=== PATIENT | male | born 1950 | race Caucasian/White ===

== ENCOUNTER → 2017-07-19 09:10 | Outpatient (CLI) | payer OTHER, SELFPAY ==
--- NOTE | 2017-07-19 09:13 | RAD_ITS ---
STUDY: X-RAY - LEFT SHOULDER REASON FOR EXAM: Male, 66 years old. Pain TECHNIQUE: 3 view(s) of the shoulder. COMPARISON: None. FINDINGS: Narrowed glenohumeral articulation. Mild spurring of the acromioclavicular joint. Normal acromion. Normal humeral head and visualized proximal humerus. The soft tissue structures are unremarkable. Normal visualized pulmonary apex. RAD/Shoulder min 2 Views IMPRESSION: Degenerative changes. No evidence for acute fracture Electronically Signed: Alexandr Escalera MD at 23:58 EST , Service support ,
== END ==
PROVIDERS: Family Provider Family Medicine; PCP Family Medicine; Visit Provider Orthopaedic Surgery
DX: M19.012 Primary osteoarthritis, left shoulder (principal)
CPT/HCPCS: 73030

== ENCOUNTER 2019-12-14 10:26 | Emergency (ER) | payer MEDICARE, BC, SELFPAY ==
[2019-12-14 10:27] VITALS: BP 160/76; PULSE 73; RESP 15; TEMP 36.3; O2SAT 96; BMI 33.4
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
--- NOTE | 2019-12-14 10:50 | DCINST.ED_ITS ---
ED Disposition - Plan for ED Patient: Instructions: ED [facility] Prescriptions: Cephalexin [Keflex] 500 mg PO Q6 #40 cap Transmission Status: Pending to [facility]/pharmacy #[id number] Referrals: Aleksandr Ramirez MD [Primary Care Provider] - 5-7 Days
[2019-12-14] MEDS: BACITRACIN 15 GM Tube 1 APPLIC TOPICAL (11:00)
[2019-12-14 11:02] VITALS: RESP 17
== END 2019-12-14 11:15 | disposition home or self-care (01) ==
LOC: ED 11:09
PROVIDERS: Emergency Provider Emergency Medicine; PCP Family Medicine
DX: T24.201A Burn of second degree of unspecified site of right lower limb, except ankle and foot, initial encounter (principal); T24.202A Burn of second degree of unspecified site of left lower limb, except ankle and foot, initial encounter; T31.0 Burns involving less than 10% of body surface; X08.8XXA Exposure to other specified smoke, fire and flames, initial encounter; Y93.89 Activity, other specified; Y92.9 Unspecified place or not applicable; I10 Essential (primary) hypertension; E11.9 Type 2 diabetes mellitus without complications; Z79.84 Long term (current) use of oral hypoglycemic drugs; Z79.82 Long term (current) use of aspirin; Z79.899 Other long term (current) drug therapy
CPT/HCPCS: 99282

== ENCOUNTER 2020-12-26 21:28 | Emergency (ER) | payer MEDICARE, BC, SELFPAY ==
[2020-12-26 21:29] VITALS: BP 148/76; PULSE 75; RESP 15; TEMP 36.4; O2SAT 95; BMI 35.4
[2020-12-26 21:59] VITALS: O2SAT 97
--- NOTE | 2020-12-26 22:32 | EX.ED.DYSGE1 ---
HPI History of Present Illness Chief Complaint: Cough Informant: patient Narrative Narrative: Patient is a 70-year-old male with a past medical history of hypertension, diabetes who presents to the emergency department for cough, sore throat. His initial symptoms started 2 days ago. His was concerned that he might of caught Covid as they did have a known Covid exposure. His granddaughter recently tested positive and they were with her. The patient otherwise feels well. He denies any body aches, fever/chills. No headache or stiff neck. No rashes. He has not been nauseous or vomiting. No change in bowel movements. He denies any significant shortness of breath or chest pain. Patient has been vaccinated with 2 doses of Moderna earlier this year. [facility] Medical History (Updated 12/26/20 @ 23:[address] Mason Reyes DO) Diabetes Former smoker Hypertension Home Medications aspirin 81 mg PO DAILY 06/12/17 [History Last Taken Unknown] valsartan-hydrochlorothiazide 1 ea PO DAILY 06/12/17 [History Last Taken 06/19/17 06:30] metformin 500 mg PO DAILY tab 06/19/17 [Rx Last Taken Unknown] atorvastatin 20 mg tablet 20 mg PO QDAY 07/19/17 [History Last Taken Unknown] Allergy/AdvReac Type Severity Reaction Status Date / Time No Known Allergies Allergy Verified 12/26/20 21:36 Family History (Updated 07/19/17 @ 09:17 by Sara Richards) Father Diabetes Mother Hypertension Surgical History (Updated 04/12/18 @ 08:40 by Francisco Javier Kim) History of cholecystectomy S/P carpal tunnel release S/P cholecystectomy S/P hernia repair Social History Smoking Status: Smoker, status unknown ROS ROS ED Constitutional Constitutional ED: Denies chills or fever(s) Eyes Eyes: Denies change in vision ENT ENT ED: Reports sore throat; Denies epistaxis or rhinorrhea Cardiovascular Cardiovascular: Denies chest pain or palpitations Respiratory/Chest Respiratory/Chest: Reports cough; Denies dyspnea or dyspnea on exertion Gastrointestinal Gastrointestinal: Denies abdominal pain, diarrhea, nausea or vomiting Musculoskeletal Musculoskeletal: Denies back pain or neck pain Integumentary Denies rash Neurologic Neurologic: Denies dizziness, headache(s) or weakness EXAM Physical Exam Const Vital Signs: 12/26/20 21:29 12/26/20 21:59 12/26/20 23:29 Temperature 97.6 F L Temperature Source Temporal Pulse Rate 75 88 Respiratory Rate 15 15 Respiratory Effort Normal Respiratory Depth Normal Respiratory Pattern Normal Blood Pressure 148/76 H 142/75 H Blood Pressure Mean 100 Pulse Ox 95 98 Oxygen Delivery Method Room Air Room Air Positive well nourished and well developed General Appearance ED: well developed and NAD HEENT Reports normocephalic, head/scalp atraumatic and moist mucous membranes Eyes PERRL and EOMs intact bilaterally Neck supple General: Negative for tenderness Chest Wall inspection of chest normal Resp normal respiratory effort and clear to auscultation bilaterally Auscultation: Negative for rales, rhonchi or wheezes Cardio regular rate, regular rhythm and no murmurs GI normal to inspection, nondistended, normoactive bowel sounds and non-tender Palpation: soft; Negative for guarding or rebound tenderness present Back/Spine no CVA tenderness Extremity normal to inspection Neuro no sensory deficits noted Sensorium / Orientation: alert Motor Exam: strength 5/5 throughout Psych mental status grossly normal Skin no rashes or lesions noted MDM MDM MDM Narrative Medical decision making narrative: Patient presents the ED to request a Covid test. He has been vaccinated. He does have a positive exposure. Has had a mild cough and sore throat. On arrival to the ED satting 95% on room air. He has a benign physical exam. Patient likely has a viral URI. Will perform rapid Covid antigen at this time. Patient's rapid Covid antigen came back negative. I believe that this is a viral URI. Recommend symptomatic treatment. Return precautions are reviewed with him. He otherwise is to follow-up with his PCP. I did recommend quarantine given the fact he did have a close exposure. He understands and is agreeable this plan. Discharged home in stable condition. All questions were answered. Discharge Plan Triage Chief Complaint: Cough ED Provider: Mason Reyes Dx/Rx/DC Orders Clinical Impression: URI (upper respiratory infection) Instructions: ED URI, Viral, No Abx (Adult) Prescriptions: No Action atorvastatin 20 mg tablet 20 mg PO QDAY RF: 0 aspirin 81 MG tablet,delayed release (DR/EC) 81 mg PO DAILY RF: 0 valsartan-hydrochlorothiazide 1 EACH tablet 1 ea PO DAILY RF: 0 metformin 500 MG tablet 500 mg PO DAILY RF: 0 Primary Care Provider: Aleksandr Ramirez Referrals: Aleksandr Ramirez MD [Primary Care Provider] - 1 Week if not improving Disposition Disposition: Home, Self Care Discharge Date/Time: 12/26/20 23:30
[2020-12-26 23:29] VITALS: BP 142/75; PULSE 88; RESP 15; O2SAT 98
== END 2020-12-26 23:30 | disposition home or self-care (01) ==
PROVIDERS: Emergency Provider Emergency Medicine; PCP Family Medicine
DX: J06.9 Acute upper respiratory infection, unspecified (principal); I10 Essential (primary) hypertension; E11.9 Type 2 diabetes mellitus without complications; F17.200 Nicotine dependence, unspecified, uncomplicated; Z79.82 Long term (current) use of aspirin; Z79.84 Long term (current) use of oral hypoglycemic drugs; Z79.899 Other long term (current) drug therapy
CPT/HCPCS: 87426; 99282

== ENCOUNTER 2021-01-05 02:38 | Emergency (ER) | payer MEDICARE, BC, SELFPAY ==
[2021-01-05 02:39] VITALS: BP 156/82; PULSE 101; RESP 17; TEMP 36.7; O2SAT 98; BMI 37.0
--- NOTE | 2021-01-05 02:53 | CT_ITS ---
STUDY: CT ABDOMEN AND PELVIS WITH CONTRAST REASON FOR EXAM: Male, 70 years old patient with abdominal pain. RADIATION DOSAGE (If Supplied By Facility): CTDIvol = ( 17.05 ) mGy, DLP = ( 1349.16 ) mGycm TECHNIQUE: Transaxial images were obtained from the dome of the diaphragm to the symphysis pubis with oral contrast. 100 mL of IV Isovue-370 was administered. Sagittal and coronal images were reconstructed. Individualized dose optimization techniques were used for this CT. COMPARISON: CT abdomen and pelvis dated 07/15/2014. FINDINGS: There is bilateral basilar dependent atelectasis. No pleural effusions are visualized. The visualized portions of the heart are within normal limits. Normal liver. There is non-visualization of the gallbladder, which may be secondary to either contraction or a prior cholecystectomy. Normal spleen. Normal pancreas. There is a right adrenal mass measuring 4.3 x 3.3 x 2.8 cm. This appears similar to previous CT. Left adrenal gland has a normal appearance. Normal right kidney. Normal left kidney. There is a small hiatal hernia. There is no obvious dilated bowel, ascites or pneumoperitoneum. Small bowel has a grossly normal appearance. There is abnormal thickening of the wall of the sigmoid colon suggesting sequela of acute infectious or inflammatory colitis. There are multiple diverticula within the sigmoid colon as well though acute diverticulitis is thought less likely. Most of the stool is visible within the ascending colon. The appendix is visualized and appears normal. Normal abdominal aorta. Normal inferior vena cava. Normal retroperitoneum. Normal urinary bladder. There are prostatic calcifications. Normal abdominal wall. There are diffuse degenerative changes of the visualized spine. CT/Abdomen/Pelvis WITH Contrast IMPRESSION: The findings suggest possible sequela of localized infectious and/or inflammatory colitis of the sigmoid colon. Electronically Signed: Amparo Mccarty MD at 7:16 EDT , Service support ,
[2021-01-05 03:03] LABS: Absolute Lymphocyte Count 2.13 X10^3/uL (0.83-4.51); Absolute Neutrophil Count 8.9 X10^3/uL (2.0-7.7); Basophil# 0.05 X10^3/uL; Basophil% 0.4 % (0-1); Eosinophil# 0.07 X10^3/uL; Eosinophils% 0.6 % (0-5); Hematocrit 47.6 % (40-54); Hemoglobin 15.9 g/dL (13.0-16.5); Lymphocyte # 2.13 X10^3/ul (0.83-4.51); Mean Corp Hgb Conc 33.4 g/dL (32-36); Mean Corpuscular Hgb 29.1 pg (27.0-32.0); Mean Corpuscular Volume 87.2 fL (80-94); Mean Platelet Vol. 10.1 fl (6.2-12.0); Monocyte# 1.34 X10^3/uL; Monocyte% 10.7 % (0-10); NRBC Flagged by Analyzer 0 % (0-5); Neutrophil # 8.91 X10^3/uL (2.7-7.7); Neutrophil % 70.9 % (47-70); Platelet Count 187 K/mm3 (150-450); RBC Distribution Width CV 12.4 % (11.6-14.6); RBC Distribution Width SD 39.4 fl (35.1-43.9); Red Blood Count 5.46 M/mm3 (4.6-6.2); White Blood Count 12.6 K/mm3 (4.4-11.0)
--- NOTE | 2021-01-05 03:53 | EDS_ITS ---
HPI History of Present Illness Chief Complaint: Abd Pain Informant: patient and spouse/S.O. Onset/Context/Timing Onset: Yesterday Context: Gradual Onset Timing: Waxes and wanes Current Severity: Moderate Maximum Severity: Moderate Narrative Narrative: Patient present secondary to abdominal pain and bloating. Patient s [place] he had a small bowel movement early yesterday morning. Since that time he has not passed any gas. He feels that his abdomen is distended and painful. Only prior abdominal surgery is cholecystectomy. [facility] Medical History Diabetes Former smoker Hypertension Home Medications aspirin 81 mg PO DAILY 06/12/17 [History Last Taken Unknown] valsartan-hydrochlorothiazide 1 ea PO DAILY 06/12/17 [History Last Taken 06/19/17 06:30] metformin 500 mg PO DAILY tab 06/19/17 [Rx Last Taken Unknown] atorvastatin 20 mg tablet 20 mg PO QDAY 07/19/17 [History Last Taken Unknown] amoxicillin-pot clavulanate [Augmentin] 1 tab PO BID #20 tab 01/05/21 [Rx Last Taken Unknown] Allergy/AdvReac Type Severity Reaction Status Date / Time No Known Allergies Allergy Verified 01/05/21 02:44 Family History Father Diabetes Mother Hypertension Surgical History History of cholecystectomy S/P carpal tunnel release S/P cholecystectomy S/P hernia repair Social History Smoking Status: Smoker, status unknown ROS ROS ED Constitutional Constitutional ED: Denies chills or fever(s) Eyes Eyes: Denies change in vision ENT ENT ED: Denies sore throat Cardiovascular Cardiovascular: Denies chest pain Respiratory/Chest Respiratory/Chest: Denies cough or dyspnea Gastrointestinal Gastrointestinal: Reports abdominal pain; Denies diarrhea, nausea or vomiting Genitourinary Genitourinary ED: Denies dysuria Musculoskeletal Musculoskeletal: Reports back pain Integumentary Denies rash Neurologic Neurologic: Denies headache(s) or weakness Psychiatric Psychiatric: Denies anxiety or depression Allergic/Immunologic Allergic/Immunologic ED: Denies urticaria EXAM Physical Exam Const Vital Signs: 01/05/21 02:39 01/05/21 04:00 01/05/21 06:56 Temperature 98.1 F Temperature Source Temporal Pulse Rate 101 H 88 83 Respiratory Rate 17 16 14 Blood Pressure 156/82 H 167/73 H 143/77 H Blood Pressure Mean 106 104 99 Pulse Ox 98 95 95 Oxygen Delivery Method Room Air Room Air Room Air Positive well nourished and well developed General Appearance ED: well developed HEENT Reports normocephalic and head/scalp atraumatic Eyes PERRL and EOMs intact bilaterally Neck supple Chest Wall inspection of chest normal and palpation of chest normal Resp normal respiratory effort and clear to auscultation bilaterally Cardio regular rate and regular rhythm GI GI Narrative: Abdomen distended and firm to palpation. No guarding or rebound. Hypoactive bowel sounds noted. Extremity normal to inspection Neuro oriented x3 and no sensory deficits noted Sensorium / Orientation: alert Motor Exam: strength 5/5 throughout Psych mental status grossly normal Skin no rashes or lesions noted MDM MDM MDM Narrative Medical decision making narrative: Patient was given morphine and Zofran for pain and nausea. Lab work and CT scan with p.o. and IV contrast is obtained. Lab Data Attestation: I reviewed the patient's lab results. Labs: Laboratory Results - last 24 hr 01/05/21 01/05/21 02:55 02:55 WBC 12.6 H RBC 5.46 Hgb 15.9 Hct 47.6 MCV 87.2 MCH 29.1 MCHC 33.4 RDW Std Deviation 39.4 RDW Coeff of Aiyana 12.4 Plt Count 187 MPV 10.1 Immature Gran % (Auto) 0.400 Neut % (Auto) 70.9 H Lymph % (Auto) 17.0 L [place] % (Auto) 10.7 H Eos % (Auto) 0.6 Baso % (Auto) 0.4 Absolute Neuts (auto) 8.9 H Absolute Lymphs (auto) 2.13 Nucleated RBC % 0 Sodium 137 Potassium 3.9 Chloride 103 Carbon Dioxide 28.0 Anion Gap 6 BUN 22 H Creatinine 1.29 Estim Creat Clear Calc 54.81 Est GFR (MDRD) Af Amer 71 Est GFR (MDRD) Non-Af 59 L BUN/Creatinine Ratio 17.1 Glucose 158 H Calcium 8.8 Total Bilirubin 0.70 Direct Bilirubin 0.16 AST 16 ALT 37 Alkaline Phosphatase 132 H Total Protein 7.4 Albumin 3.7 Globulin 3.7 Radiography Diagnostic Testing: Radiology Impression Abdomen/Pelvis CT 01/05/21 02:53 IMPRESSION: The findings suggest possible sequela of localized infectious and/or inflammatory colitis of the sigmoid colon. Electronically Signed: Amparo Mccarty MD at 7:16 EDT , Service support , Treatment and Re-Evaluation Comments:: On repeat evaluation patient resting comfortably. Test results discussed with patient and at bedside. White count is mildly elevated at 12.6 but no significant left shift noted. Chemistry studies unremarkable. CT scan reveals localized infectious or inflammatory colitis of the sigmoid colon. Patient be treated with a course of Augmentin. Return instructions of been prov ided. Discharge Plan Triage Chief Complaint: Abd Pain ED Provider: Viri Rodriguez Dx/Rx/DC Orders Clinical Impression: Colitis Instructions: ED Understanding Colitis Prescriptions: New amoxicillin-pot clavulanate [Augmentin] 875-125 mg tablet 1 tab PO BID Qty: 20 RF: 0 No Action atorvastatin 20 mg tablet 20 mg PO QDAY RF: 0 aspirin 81 MG tablet,delayed release (DR/EC) 81 mg PO DAILY RF: 0 valsartan-hydrochlorothiazide 1 EACH tablet 1 ea PO DAILY RF: 0 metformin 500 MG tablet 500 mg PO DAILY RF: 0 Primary Care Provider: Aleksandr Ramirez Referrals: Aleksandr Ramirez MD [Primary Care Provider] - 1-2 Weeks Disposition Disposition: Home, Self Care
[2021-01-05 04:00] VITALS: BP 167/73; PULSE 88; RESP 16; O2SAT 95
[2021-01-05] MEDS: Morphine 4 MG/ML Syringe IV (04:28)
[2021-01-05] MEDS: Ondansetron 4 MG/2 ML Vial IV (04:28)
[2021-01-05 04:34] LABS: AST(SGOT) 16 U/L (15-37); Alanine Aminotransfer ALT/SGPT 37 U/L (16-61); Albumin, Serum 3.7 g/dL (3.2-5.0); Alkaline Phosphatase 132 U/L (45-117); Anion Gap 6 (5-15); BUN 22 mg/dL (7-18); BUN/Creat Ratio 17.1 RATIO (10-20); Bilirubin, Direct 0.16 mg/dL (0.00-0.30); Calcium,Total 8.8 mg/dL (8.5-10.1); Chloride 103 mmol/L (98-107); Creatinine, Serum 1.29 mg/dL (0.70-1.30); EST Glomerular Filtration Rate 59 mL/min (>60); Est Glom Filt Rate - Afr Amer 71 mL/min (>60); Estimated Creatinine Clearance 54.81 ml/min; Globulin 3.7 g/dL (2.2-4.2); Glucose 158 mg/dL (74-106); Potassium 3.9 mmol/L (3.5-5.1); Protein, Total 7.4 g/dL (6.4-8.2); Sodium Level 137 mmol/L (136-145)
[2021-01-05 06:56] VITALS: BP 143/77; PULSE 83; RESP 14; O2SAT 95
[2021-01-05 07:34] VITALS: BP 135/78; PULSE 79; RESP 16; O2SAT 96
[2021-01-05] MEDS: Amox/Clavulanate 875 MG Tablet PO (07:34)
== END 2021-01-05 07:35 | disposition home or self-care (01) ==
PROVIDERS: Emergency Provider Emergency Medicine; PCP Family Medicine
DX: K52.9 Noninfective gastroenteritis and colitis, unspecified (principal); I10 Essential (primary) hypertension; E11.9 Type 2 diabetes mellitus without complications; Z90.49 Acquired absence of other specified parts of digestive tract; Z79.82 Long term (current) use of aspirin; Z79.84 Long term (current) use of oral hypoglycemic drugs; Z79.899 Other long term (current) drug therapy; Z87.891 Personal history of nicotine dependence
CPT/HCPCS: 74177; 80048; 80076; 85025; 96374; 96375; 99285; Q9967; A4216; J2405

== ENCOUNTER 2021-01-05 22:45 | Inpatient (IN) | payer MEDICARE, BC, SELFPAY ==
[2021-01-05 02:39] VITALS: BMI 37.0
[2021-01-05 22:46] VITALS: BP 160/86; PULSE 108; RESP 18; TEMP 36.4; O2SAT 95; BMI 35.4
[2021-01-05] MEDS: 0.9% Normal Saline 1,000 ML 150 ML IV (23:57)
[2021-01-05 23:58] LABS: Absolute Lymphocyte Count 1.27 X10^3/uL (0.83-4.51); Absolute Neutrophil Count 13.7 X10^3/uL (2.0-7.7); Basophil# 0.06 X10^3/uL; Basophil% 0.4 % (0-1); Eosinophil# 0.02 X10^3/uL; Eosinophils% 0.1 % (0-5); Hematocrit 50.4 % (40-54); Hemoglobin 16.4 g/dL (13.0-16.5); Lymphocyte # 1.27 X10^3/ul (0.83-4.51); Lymphocyte % 7.7 % (19-41); Mean Corp Hgb Conc 32.5 g/dL (32-36); Mean Corpuscular Hgb 28.9 pg (27.0-32.0); Mean Corpuscular Volume 88.9 fL (80-94); Monocyte# 1.49 X10^3/uL; NRBC Flagged by Analyzer 0 % (0-5); Neutrophil # 13.67 X10^3/uL (2.7-7.7); Neutrophil % 82.3 % (47-70); Platelet Count 221 K/mm3 (150-450); RBC Distribution Width CV 12.4 % (11.6-14.6); RBC Distribution Width SD 40.8 fl (35.1-43.9); Red Blood Count 5.67 M/mm3 (4.6-6.2); White Blood Count 16.6 K/mm3 (4.4-11.0)
[2021-01-05] MEDS: fentaNYL 100 MCG/2 ML Ampul 25 MCG IV (23:58)
[2021-01-05] MEDS: Ondansetron 4 MG/2 ML Vial IV (23:58)
[2021-01-06] VITALS (8 sets, daily range): BP systolic 143–169; BP diastolic 68–90; PULSE 81–100; RESP 16–20; TEMP 36.7–37.4; O2SAT 94–99; BMI 36.8
--- NOTE | 2021-01-06 | RAD_ITS ---
STUDY: X-RAY - ACUTE ABDOMINAL SERIES REASON FOR EXAM: Male, 70 years old patient with abdominal pain. TECHNIQUE: Single view of the chest. Supine, and erect view(s) of the abdomen were obtained. COMPARISON: CT of the abdomen and pelvis dated 01/05/2021. FINDINGS: The lungs are mildly underexpanded. There is interstitial thickening present in both lungs. There is left basilar pulmonary nodule measuring approximately 6 mm in greatest dimension. Suggestion for patchy right basilar airspace disease possibly representing pneumonia. There is borderline cardiomegaly. Normal mediastinum and shirin. There is prominence of the pulmonary hilar arteries with peripheral pulmonary vascular congestion. There is atherosclerotic calcification of the aortic arch with tortuosity. There is gaseous distention of the transverse colon which may represent sequela of localized ileus. There is some residual contrast in urinary bladder probably from recent CT. The soft tissue structures of the abdomen and pelvis are unremarkable. Normal visualized osseous structures. RAD/Acute Abdomen Inc Chest IMPRESSION: 1. Left basilar pulmonary nodule. Suggest follow-up as per FLEISCHNER criteria. 2. Patchy right basilar airspace disease may represent pneumonia. 3. Localized ileus of the transverse colon. Fleischner Society Recommendations for Follow-up and Management of Nodules Smaller than 8 mm Detected Incidentally at Non-screening CT. Nodule size < or = 4 mm: Low-Risk Patient - No follow-up needed. High-Risk Patient - Follow-up CT at 12 months; if unchanged, no further follow-up. Nodule size > 4-6 mm: Low-Risk Patient - Follow-up CT at 12 months; if unchanged, no further follow-up. High-Risk Patient - Initial follow-up CT at 6-12 months then at 18-24 months if no change. Nodule size > 6-8 mm: Low-Risk Patient - Initial follow-up CT at 6-12 months then at 18-24 months if no change. High-Risk Patient - Initial follow-up CT at 3-6 months then at 9-12 and 24 months if no change. Low-Risk = Minimal or absent history of smoking and of other known risk factors. High-Risk = History of smoking or of other known risk factors. Electronically Signed: Amparo Mccarty MD at 1:39 EDT , Service support ,
[2021-01-06 00:17] LABS: AST(SGOT) 19 U/L (15-37); Alanine Aminotransfer ALT/SGPT 40 U/L (16-61); Albumin, Serum 3.7 g/dL (3.2-5.0); Alkaline Phosphatase 137 U/L (45-117); Anion Gap 7 (5-15); BUN 18 mg/dL (7-18); BUN/Creat Ratio 12.4 RATIO (10-20); Bilirubin, Direct 0.28 mg/dL (0.00-0.30); Chloride 100 mmol/L (98-107); Creatinine, Serum 1.45 mg/dL (0.70-1.30); EST Glomerular Filtration Rate 51 mL/min (>60); Est Glom Filt Rate - Afr Amer 62 mL/min (>60); Estimated Creatinine Clearance 48.76 ml/min; Globulin 4.3 g/dL (2.2-4.2); Glucose 182 mg/dL (74-106); Sodium Level 135 mmol/L (136-145)
--- NOTE | 2021-01-06 01:46 | EDS_ITS ---
HPI History of Present Illness Chief Complaint: Abd Pain Informant: patient Onset/Context/Timing Onset: Days Context: Gradual Onset Timing: Waxes and wanes Current Severity: Moderate Maximum Severity: Moderate Narrative Narrative: Patient presents back to emergency room with continued abdominal pain. Patient was seen in the emergency room early this morning by myself with a 1-1/2-day history of abdominal pain. He only had a small bowel movement but then was not passing gas remainder of the day. His abdomen felt very distended. Work-up in the emergency room revealed minimal elevation of white count. CT scan with contrast revealed inflammation in the sigmoid colon but no evidence of bowel obstruction. He was treated with Augmentin. Patient reports continued pain this evening. He states he still has not passed any gas and did have some nausea and dry heaves this evening. [facility] Medical History Diabetes Former smoker Hypertension Home Medications aspirin 81 mg PO DAILY 06/12/17 [History Last Taken Unknown] valsartan-hydrochlorothiazide 1 ea PO DAILY 06/12/17 [History Last Taken 06/19/17 06:30] metformin 500 mg PO DAILY tab 06/19/17 [Rx Last Taken Unknown] atorvastatin 20 mg tablet 20 mg PO QDAY 07/19/17 [History Last Taken Unknown] amoxicillin-pot clavulanate [Augmentin] 1 tab PO BID #20 tab 01/05/21 [Rx Last Taken Unknown] Allergy/AdvReac Type Severity Reaction Status Date / Time No Known Allergies Allergy Verified 01/05/21 22:48 Family History Father Diabetes Mother Hypertension Surgical History History of cholecystectomy S/P carpal tunnel release S/P cholecystectomy S/P hernia repair Social History Smoking Status: Smoker, status unknown ROS ROS ED Constitutional Constitutional ED: Denies chills or fever(s) Eyes Eyes: Denies change in vision ENT ENT ED: Denies sore throat Cardiovascular Cardiovascular: Denies chest pain Respiratory/Chest Respiratory/Chest: Denies cough or dyspnea Gastrointestinal Gastrointestinal: Reports abdominal pain, nausea and vomiting; Denies diarrhea Genitourinary Genitourinary ED: Denies dysuria Musculoskeletal Musculoskeletal: Denies back pain Integumentary Denies rash Neurologic Neurologic: Denies headache(s) or weakness Psychiatric Psychiatric: Denies anxiety or depression Endocrine Endocrinology: Denies polydipsia or polyuria Allergic/Immunologic Allergic/Immunologic ED: Denies urticaria EXAM Physical Exam Const Vital Signs: 01/05/21 22:46 01/06/21 00:15 Temperature 97.6 F L 98.5 F Temperature Source Temporal Temporal Pulse Rate 108 H 91 Respiratory Rate 18 16 Blood Pressure 160/86 H 143/76 H Blood Pressure Mean 110 98 Pulse Ox 95 95 Oxygen Delivery Method Room Air Room Air Positive well nourished and well developed General Appearance ED: well developed HEENT Reports normocephalic and head/scalp atraumatic Eyes PERRL and EOMs intact bilaterally Neck supple Chest Wall inspection of chest normal and palpation of chest normal Resp normal respiratory effort and clear to auscultation bilaterally Cardio regular rate and regular rhythm GI GI Narrative: Abdomen distended and firm. No guarding or rebound. Hypoactive bowel sounds. Extremity normal to inspection Neuro oriented x3 and no sensory deficits noted Sensorium / Orientation: alert Motor Exam: strength 5/5 throughout Psych mental status grossly normal Skin no rashes or lesions noted MDM MDM MDM Narrative Medical decision making narrative: Patient given fentanyl and Zofran for pain. Labs were repeated. Acute abdominal series obtained. Lab Data Attestation: I reviewed the patient's lab results. Labs: Laboratory Results - last 24 hr 01/05/21 01/05/21 23:51 23:51 WBC 16.6 H RBC 5.67 Hgb 16.4 Hct 50.4 MCV 88.9 MCH 28.9 MCHC 32.5 RDW Std Deviation 40.8 RDW Coeff of Aiyana 12.4 Plt Count 221 MPV 9.0 Immature Gran % (Auto) 0.500 Neut % (Auto) 82.3 H Lymph % (Auto) 7.7 L [place] % (Auto) 9.0 Eos % (Auto) 0.1 Baso % (Auto) 0.4 Absolute Neuts (auto) 13.7 H Absolute Lymphs (auto) 1.27 Nucleated RBC % 0 Sodium 135 L Potassium 4.0 Chloride 100 Carbon Dioxide 28.0 Anion Gap 7 BUN 18 Creatinine 1.45 H Estim Creat Clear Calc 48.76 Est GFR (MDRD) Af Amer 62 Est GFR (MDRD) Non-Af 51 L BUN/Creatinine Ratio 12.4 Glucose 182 H Calcium 9.0 Total Bilirubin 1.10 H Direct Bilirubin 0.28 AST 19 ALT 40 Alkaline Phosphatase 137 H Total Protein 8.0 Albumin 3.7 Globulin 4.3 H Radiography Diagnostic Testing: Radiology Impression Acute Abdomen Series 01/06/21 00:00 IMPRESSION: 1. Left basilar pulmonary nodule. Suggest follow-up as per FLEISCHNER criteria. 2. Patchy right basilar airspace disease may represent pneumonia. 3. Localized ileus of the transverse colon. Fleischner Society Recommendations for Follow-up and Management of Nodules Smaller than 8 mm Detected Incidentally at Non-screening CT. Nodule size < or = 4 mm: Low-Risk Patient - No follow-up needed. High-Risk Patient - Follow-up CT at 12 months; if unchanged, no further follow-up. Nodule size > 4-6 mm: Low-Risk Patient - Follow-up CT at 12 months; if unchanged, no further follow-up. High-Risk Patient - Initial follow-up CT at 6-12 months then at 18-24 months if no change. Nodule size > 6-8 mm: Low-Risk Patient - Initial follow-up CT at 6-12 months then at 18-24 months if no change. High-Risk Patient - Initial follow-up CT at 3-6 months then at 9-12 and 24 months if no change. ------ Low-Risk = Minimal or absent history of smoking and of other known risk factors. High-Risk = History of smoking or of other known risk factors. Electronically Signed: Amparo Mccarty MD at 1:39 EDT , Service support , Treatment and Re-Evaluation Comments:: Acute abdominal series per my interpretation reveals increased stool on the right. No sign of definite bowel obstruction. Radiology interpretation is reviewed which includes concern for ileus. Lab work does reveal increased white count to 16.6. Patient has increased pain on repeat examination is given a small dose of Dilaudid. Patient has failed outpatient therapy and now has evidence of an ileus. I recommended observation in the hospital overnight for further treatment. I will speak with the hospitalist. Discharge Plan Triage Chief Complaint: Abd Pain ED Provider: Viri Rodriguez Dx/Rx/DC Orders Clinical Impression: Ileus Prescriptions: No Action atorvastatin 20 mg tablet 20 mg PO QDAY RF: 0 aspirin 81 MG tablet,delayed release (DR/EC) 81 mg PO DAILY RF: 0 valsartan-hydrochlorothiazide 1 EACH tablet 1 ea PO DAILY RF: 0 metformin 500 MG tablet 500 mg PO DAILY RF: 0 amoxicillin-pot clavulanate [Augmentin] 875-125 mg tablet 1 tab PO BID Qty: 20 RF: 0 Primary Care Provider: Aleksandr Ramirez Referrals: Aleksandr Ramirez MD [Primary Care Provider] - Disposition Disposition: [facility]
[2021-01-06] MEDS: HYDROmorphone 0.5 MG/0.5 ML SYRINGE IV (01:48)
--- NOTE | 2021-01-06 02:33 | HP.PCM.HOS_ITS ---
HPI - General General Date of Admission: 01/06/21 HPI Narrative ALISSA PICHARDO, is a 70 M return to ER with progressive increasing abdominal pain and distention after he was discharged from ER yesterday on Augmentin. Patient has abdominal pain started from hypogastrium/right lower quadrant with radiation to right flank about 2 days ago. Patient has not moved bowel movement or passed flatus since last Monday with increasing abdominal distention. Patient denies fever or chills, vomiting but has nausea. CT scan with contrast showed localized infection or inflammation in the sigmoid colon without bowel obstruction or abscess. Fecal matter noted in ascending colon. Repeat acute abdominal series today shows localized ileus of the transverse colon. Basic labs shows increasing leukocyte count with left shift, increase in creatinine Patient is started on IV Zosyn and admitted. [facility] Medical History Diabetes Former smoker Hypertension Home Medications aspirin 81 mg PO DAILY 06/12/17 [History Last Taken Unknown] valsartan-hydrochlorothiazide 1 ea PO DAILY 06/12/17 [History Last Taken 06/19/17 06:30] metformin 500 mg PO DAILY tab 06/19/17 [Rx Last Taken Unknown] atorvastatin 20 mg tablet 20 mg PO QDAY 07/19/17 [History Last Taken Unknown] amoxicillin-pot clavulanate [Augmentin] 1 tab PO BID #20 tab 01/05/21 [Rx Last Taken Unknown] Allergy/AdvReac Type Severity Reaction Status Date / Time No Known Allergies Allergy Verified 01/05/21 22:48 Family History Father Diabetes Mother Hypertension Surgical History History of cholecystectomy S/P carpal tunnel release S/P cholecystectomy S/P hernia repair Social History Smoking Status: Smoker, status unknown ROS ROS Narrative Constitutional: Abdominal discomfort with distention. No fever or chills HEENT: Reports systems reviewed and no addt'l complaints, except as documented Respiratory/Chest: Denies chest pain, shortness of breath at rest or exertion Gastrointestinal: Nausea. As mentioned in HPI. History of cholecystectomy and ventral hernia repair with mesh. Genitourinary: Denies burning urination or new urinary tract symptoms Musculoskeletal: Reports joint pain and limited range of motion Neurologic: Denies seizure-like activity skin: No ulcer. No rash Endocrinology: Reports systems reviewed and no addt'l complaints, except as documented Hematologic/Lymphatic: Reports systems reviewed and no addt'l complaints, except as documented Rest 12 ROS are negative except as mentioned in HPI Vital Signs Vital Signs Vital Signs: 01/05/21 22:46 01/06/21 00:15 Temperature 97.6 F L 98.5 F Temperature Source Temporal Temporal Pulse Rate 108 H 91 Respiratory Rate 18 16 Blood Pressure 160/86 H 143/76 H Blood Pressure Mean 110 98 Pulse Ox 95 95 Oxygen Delivery Method Room Air Room Air Weight Weight: 240 lb Body Mass Index (BMI) 35.4 Physical Exam Narrative General: Alert, Oriented x3, Cooperative HEENT: Atraumatic, PERRLA, EOMI, Normocephalic Oral: No Gingival or Mucosal Lesions/ Ulcerations Neck: Supple, No JVD, Negative Carotid Bruits Lungs: Air entry diminished in bilateral lung bases. No crepitation/rhonchi Cardiovascular: Regular rate, Regular Rhythm, Normal S1, Normal S2, No murmurs Abdomen: Bowel Sounds sluggish, tenderness present in right lower and hypogastric region. Gaseous distended. : No renal angle tenderness. No suprapubic tenderness. Extremities: No edema, Capillary Refill Less than 3 Seconds Skin: No rashes, No breakdown Musculoskeletal: No Tenderness to Palpation of Joints or Extremities Neurological: Cranial nerves II-XII grossly intact, DTR 2+/4 and Symmetrical, Neuro grossly intact Psych/Mental Status: Normal Affect, Appropriate. Results Lab / Micro Data Result Diagrams: 01/05/21 23:51 01/05/21 23:51 Labs: Laboratory Results - last 24 hr 01/05/21 23:51: WBC 16.6 H, RBC 5.67, Hgb 16.4, Hct 50.4, MCV 88.9, MCH 28.9, MCHC 32.5, RDW Std Deviation 40.8, RDW Coeff of Aiyana 12.4, Plt Count 221, MPV 9.0, Immature Gran % (Auto) 0.500, Neut % (Auto) 82.3 H, Lymph % (Auto) 7.7 L, [place] % (Auto) 9.0, Eos % (Auto) 0.1, Baso % (Auto) 0.4, Absolute Neuts (auto) 13.7 H, Absolute Lymphs (auto) 1.27, Nucleated RBC % 0 01/05/21 23:51: Sodium 135 L, Potassium 4.0, Chloride 100, Carbon Dioxide 28.0, Anion Gap 7, BUN 18, Creatinine 1.45 H, Estim Creat Clear Calc 48.76, Est GFR (MDRD) Af Amer 62, Est GFR (MDRD) Non-Af 51 L, BUN/Creatinine Ratio 12.4, Glucose 182 H, Calcium 9.0, Total Bilirubin 1.10 H, Direct Bilirubin 0.28, AST 19, ALT 40, Alkaline Phosphatase 137 H, Total Protein 8.0, Albumin 3.7, Globulin 4.3 H Radiology Impression Acute Abdomen Series 01/06/21 00:00 IMPRESSION: 1. Left basilar pulmonary nodule. Suggest follow-up as per FLEISCHNER criteria. 2. Patchy right basilar airspace disease may represent pneumonia. 3. Localized ileus of the transverse colon. Fleischner Society Recommendations for Follow-up and Management of Nodules Smaller than 8 mm Detected Incidentally at Non-screening CT. ---- Nodule size < or = 4 mm: Low-Risk Patient - No follow-up needed. High-Risk Patient - Follow-up CT at 12 months; if unchanged, no further follow-up. Nodule size > 4-6 mm: Low-Risk Patient - Follow-up CT at 12 months; if unchanged, no further follow-up. High-Risk Patient - Initial follow-up CT at 6-12 months then at 18-24 months if no change. Nodule size > 6-8 mm: Low-Risk Patient - Initial follow-up CT at 6-12 months then at 18-24 months if no change. High-Risk Patient - Initial follow-up CT at 3-6 months then at 9-12 and 24 months if no change. Low-Risk = Minimal or absent history of smoking and of other known risk factors. High-Risk = History of smoking or of other known risk factors. Electronically Signed: Amparo Mccarty MD at 1:39 EDT , Service support , Assessment & Plan Assessment/Plan (1) Colitis: (2) Ileus: PLAN: This 70-year-old gentleman is being admitted for abdominal pain and distention most related to acute sigmoid colitis 1. Acute infectious/inflammatory sigmoid colitis with ileus: Patient is being admitted [facility]. Started on IV fluid normal saline, IV Zosyn, keep patient n.p.o. Patient tried [id number] stool softener but still did not move flatus or bowel movement. CT abdomen and acute abdominal x-ray independently reviewed consistent with sigmoid infectious/inflammatory colitis, diverticulitis less likely, does not show bowel obstruction. There is fecal material in the ascending colon. Try Dulcolax 10 mg 1 dose to relieve gaseous distention/ileus. Consult surgery if ileus gets worsens. 2. History of cholecystitis and ventral hernia repair with mesh: 3. Diabetes mellitus type 2: Accu-Chek is initial correctional sliding scale 4. Hypertension: Continue antihypertensive medication. Hydralazine 10 mg IV q 4 hourly as needed for systolic blood pressure more than 180 mmHg 5. Morbid obesity. BMI 35.4 kg/m?. VTE prophylaxis: Lovenox 40 minutes subcu daily. Discontinue if platelet count drops less than 50,000 or hemoglobin less than 8 g% Living will/advanced directive/end of life care: Patient does have living will or advanced directive. His is power of trademark attorney for health. After discussion of benefits/risks procedures involved with full code, DNR CC arrest and DNR CC, the patient and his opted for full code. The patient and his want artificial life support including intubation, tube feed, ventilator and/chest compression, central venous catheter, vasopressor and DC shock if needed Total time spent in [id number] encounter in discussion of advanced directive 16 minutes. Charges/Coding Visit Charges Inpatient E&M: 09501 Init Hosp L3 Procedures Hospitalists Procedures: 00933 Advncd Care Plan 30 Min
[2021-01-06] MEDS: 0.9% Normal Saline 1,000 ML 150 ML IV (04:29)
[2021-01-06 06:01] LABS: Bedside Glucose 147 mg/dL (70-110)
[2021-01-06] MEDS: Bisacodyl 5 MG Tablet 10 MG PO (06:52)
[2021-01-06] MEDS: 0.9% Normal Saline 1,000 ML 75 ML IV ×2 (06:52→19:37)
[2021-01-06] MEDS: Ondansetron 4 MG/2 ML Vial IV ×3 (06:52→19:41)
[2021-01-06] MEDS: Morphine 2 MG/ML Syringe IV ×3 (06:53→19:37)
--- NOTE | 2021-01-06 07:21 | PN.HOSP_ITS ---
Subjective Subjective Patient seen and examined. He was admitted with a complaint of worsening abdominal pain and distension. CT Scan showed sigmoid colitis with localised ileus of transverse colon. He is being managed for sigmoid diverticulitis. Patient seen. Abdominal pain is improving. He has no other complaints and review of systems is otherwise negative. He has remained hemodynamically stable. Review of systems is otherwise negative. Objective Data Objective Data Vital Signs: Vital Signs Temp Pulse Resp BP Pulse Ox 98.5 F 94 16 169/77 H 99 01/06/21 03:18 01/06/21 03:18 01/06/21 03:18 01/06/21 03:18 01/06/21 03:18 Oxygen Delivery Method Room Air Weight: 249 lb 1.957 oz Body Mass Index (BMI) 36.8 Intake & Output: Intake and Output for Last 24 Hours 01/04/21 01/05/21 01/06/21 23:59 23:59 23:59 Intake Total 1037.5 / 1037.5 Balance 1037.5 / 1037.5 Lab / Micro Data Result Diagrams: 01/05/21 23:51 01/05/21 23:51 Labs: Laboratory Results - last 24 hr 01/05/21 23:51: WBC 16.6 H, RBC 5.67, Hgb 16.4, Hct 50.4, MCV 88.9, MCH 28.9, MCHC 32.5, RDW Std Deviation 40.8, RDW Coeff of Aiyana 12.4, Plt Count 221, MPV 9. 0, Immature Gran % (Auto) 0.500, Neut % (Auto) 82.3 H, Lymph % (Auto) 7.7 L, [place] % (Auto) 9.0, Eos % (Auto) 0.1, Baso % (Auto) 0.4, Absolute Neuts (auto) 13.7 H, Absolute Lymphs (auto) 1.27, Nucleated RBC % 0 01/05/21 23:51: Sodium 135 L, Potassium 4.0, Chloride 100, Carbon Dioxide 28.0, Anion Gap 7, BUN 18, Creatinine 1.45 H, Estim Creat Clear Calc 48.76, Est GFR (MDRD) Af Amer 62, Est GFR (MDRD) Non-Af 51 L, BUN/Creatinine Ratio 12.4, Glucose 182 H, Calcium 9.0, Total Bilirubin 1.10 H, Direct Bilirubin 0.28, AST 19, ALT 40, Alkaline Phosphatase 137 H, Total Protein 8.0, Albumin 3.7, Globulin 4.3 H 01/06/21 05:50: POC Glucose 147 H Radiography Diagnostic Testing: Radiology Impression Acute Abdomen Series 01/06/21 00:00 IMPRESSION: 1. Left basilar pulmonary nodule. Suggest follow-up as per FLEISCHNER criteria. 2. Patchy right basilar airspace disease may represent pneumonia. 3. Localized ileus of the transverse colon. Fleischner Society Recommendations for Follow-up and Management of Nodules Smaller than 8 mm Detected Incidentally at Non-screening CT. Nodule size < or = 4 mm: Low-Risk Patient - No follow-up needed. High-Risk Patient - Follow-up CT at 12 months; if unchanged, no further follow-up. Nodule size > 4-6 mm: Low-Risk Patient - Follow-up CT at 12 months; if unchanged, no further follow-up. High-Risk Patient - Initial follow-up CT at 6-12 months then at 18-24 months if no change. Nodule size > 6-8 mm: Low-Risk Patient - Initial follow-up CT at 6-12 months then at 18-24 months if no change. High-Risk Patient - Initial follow-up CT at 3-6 months then at 9-12 and 24 months if no change. Low-Risk = Minimal or absent history of smoking and of other known risk factors. High-Risk = History of smoking or of other known risk factors. Electronically Signed: Amparo Mccarty MD at 1:39 EDT , Service support , Physical Exam Const alert, oriented x3 and no apparent distress Exam Limitations: no limitations Nutritional Appearance: cachectic and obese HEENT head/scalp atraumatic Head and Scalp: normocephalic Mouth: dry mucous membranes Eyes PERRL, EOMs intact bilaterally and conjunctivae normal Neck no lymphadenopathy Resp normal respiratory effort, no retractions, no use of accessory muscles and clear to auscultation bilaterally Cardio regular rate, regular rhythm, S1 normal heart sound, S2 normal heart sound and no murmurs GI GI Narrative: abdomen soft, minimal tenderness, no guarding or rebound tend erness Extremity normal to inspection, full ROM and no clubbing, cyanosis or edema Peripheral Pulses: Yes pulses 2+ throughout Skin no rashes or lesions noted Neuro oriented x3, CN's II-XII intact bilaterally and moves all extremities Sensorium / Orientation: awake and alert Psych affect normal Assessment & Plan Assessment/Plan (1) Colitis: (2) Ileus: PLAN: #Acute sigmoid colitis with ileus * pain is improving. Being hydrated with IVF NS * on IV zosyn * currently NPO; if pain gets worse, will consult general surgery * acute abdominal series showed left basilar pulmonary nodule, and right patchy basilar airspace disease which could represent pneumonia, as well as localised ileus of the transverse colon * #History of ventral hernia with mesh repair: stable. #Type 2 diabetes mellitus: hold oral meds as he is NPO. ISS. Accuchecks ACHS #Hypertension: on valsartan/HCTZ #Hyperlipidemia: on atorvastatin #Obesity: BNI is 36.8. Complicates acute care, expected recovery and prognosis DVT prophylaxis: lovenox Charges/Coding Visit Charges Inpatient E&M: 84185 Subs Hosp L3
--- NOTE | 2021-01-06 11:00 | CASEMGMT ---
MARIKA LUCAS Assessment: Face to Face with pt for initial transition planning/care coordination assessment. RN SHAYY introduced self and role at [facility], pt voices understanding and consents to assessment. Pt is A/O x4 and answers all questions appropriately at this time. Pt lying in bed with at bedside in no distress. Care providers, pharmacy, and demographics verified/updated. Admitting Dx: sigmoid diverticulitis with ileus PCP:James Specialists: Pt denies having any specialists. Preferred [facility]acy: [facility] Insurance: Yovanny ROTH Prescription Benefit: yes LW/HPOA: Pt states he has a LW/DPOA and his DPOA is his Tatianna Larsen. He is aware that this is not on file at [facility]. LNOK: Tatianna Larsen, Living Arrangements: Pt lives with in a single story house with one step to enter. Pt states he is I in ADL's and denies concerns at home. Transportation: Pt drives self and denies concerns at home. DME/HHC/SNF: Pt denies having any DME in the home, hx of HHC or SNF stays. Pt states no concerns with going home at time of dc. 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 Pt states no further concerns/needs. CM to follow. Advised pt to ask CM if any further question/concerns/needs arise, voices understanding. Pt Goal: Home Plan: Home
--- NOTE | 2021-01-06 11:25 | EX.PCM.CON.S ---
Assessment & Plan Assessment/Plan (1) Colitis: PLAN: The patient had a CT scan done early this morning that showed thickening of the sigmoid colon suggestive of colitis. At that time the oral contrast was on the small bowel. He had an abdominal x-ray done this morning which showed that the contrast was in the cecum. There was gaseous distention of the transverse colon. Patient may be having obstruction of the sigmoid colon due to inflammation of the sigmoid. At this time I recommended the patient continue n.p.o. status and await bowel function. Repeat KUB in the morning. Continue antibiotics. Drake Pinon MD Pager: [facility] [address] [place] [address], [address] [place] [address] Office: HPI Consult Data Date of Consult: 01/06/21 HPI Narrative HPI Narrative: ALISSA PICHARDO, is a 70 M who presents with abdominal pain. Patient reports that he was in the emergency room yesterday and sent home on Augmentin and represented with abdominal pain and bloating. Patient reports he is feeling much more bloated but he is not having any nausea or vomiting. He is not passing any flatus. Patient reports his last colonoscopy was less than 10 years ago. [facility] Medical History (Updated 01/06/21 @ 03:07 by Rukhsana Wilson) Alcohol abuse Diabetes Former smoker Hypertension Wears hearing aid in both ears Home Medications aspirin 81 mg PO DAILY 06/12/17 [History Last Taken 01/05/21 06:30] atorvastatin 20 mg tablet 20 mg PO QHS 07/19/17 [History Last Taken 01/04/21 22:00] amoxicillin-pot clavulanate [Augmentin] 1 tab PO BID 01/06/21 [History Last Taken 01/05/21 18:30] metformin 500 mg PO DAILY 01/06/21 [History Last Taken 01/04/21 06:30] valsartan-hydrochlorothiazide 1 tab PO DAILY 01/06/21 [History Last Taken Unknown] Allergy/AdvReac Type Severity Reaction Status Date / Time No Known Allergies Allergy Verified 01/05/21 22:48 Family History Father Diabetes Mother Hypertension Surgical History History of cholecystectomy S/P carpal tunnel release S/P cholecystectomy S/P hernia repair Social History Smoking Status: Smoker, status unknown ROS Constitutional Constitutional: Denies anorexia or fatigue ENT HEENT: Denies abnormal hearing Cardiovascular Cardiovascular: Denies chest pain Respiratory/Chest Respiratory/Chest: Denies cough Gastrointestinal Gastrointestinal: Reports abdominal pain and bloating; Denies constipation, diarrhea, nausea or vomiting Genitourinary Genitourinary: Denies change in urinary stream Musculoskeletal Musculoskeletal: Denies abnormal gait Integumentary Integumentary: Denies jaundice Neurologic Neurologic: Denies dizziness Psychiatric Psychiatric: Denies anxiety Endocrine Endocrinology: Denies flushing Physical Exam Const alert and oriented x3 Eyes PERRL Resp normal respiratory effort Cardio Rate: regular rate Rhythm: regular rhythm GI soft to palpation Inspection: abdominal distention Palpation: tender LLQ Neuro CN's II-XII intact bilaterally Lab / Micro Data Result Diagrams: 01/05/21 23:51 01/05/21 23:51 Labs: Laboratory Results - last 24 hr 01/05/21 23:51: WBC 16.6 H, RBC 5.67, Hgb 16.4, Hct 50.4, MCV 88.9, MCH 28.9, MCHC 32.5, RDW Std Deviation 40.8, RDW Coeff of Aiyana 12.4, Plt Count 221, MPV 9.0, Immature Gran % (Auto) 0.500, Neut % (Auto) 82.3 H, Lymph % (Auto) 7.7 L, [place] % (Auto) 9.0, Eos % (Auto) 0.1, Baso % (Auto) 0.4, Absolute Neuts (auto) 13.7 H, Absolute Lymphs (auto) 1.27, Nucleated RBC % 0 01/05/21 23:51: Sodium 135 L, Potassium 4.0, Chloride 100, Carbon Dioxide 28.0, Anion Gap 7, BUN 18, Creatinine 1.45 H, Estim Creat Clear Calc 48.76, Est GFR (MDRD) Af Amer 62, Est GFR (MDRD) Non-Af 51 L, BUN/Creatinine Ratio 12.4, Glucose 182 H, Calcium 9.0, Total Bilirubin 1.10 H, Direct Bilirubin 0.28, AST 19, ALT 40, Alkaline Phosphatase 137 H, Total Protein 8.0, Albumin 3.7, Globulin 4.3 H 01/06/21 05:50: POC Glucose 147 H Radiology Impression Acute Abdomen Series 01/06/21 00:00 IMPRESSION: 1. Left basilar pulmonary nodule. Suggest follow-up as per FLEISCHNER criteria. 2. Patchy right basilar airspace disease may represent pneumonia. 3. Localized ileus of the transverse colon. Fleischner Society Recommendations for Follow-up and Management of Nodules Smaller than 8 mm Detected Incidentally at Non-screening CT. Nodule size < or = 4 mm: Low-Risk Patient - No follow-up needed. High-Risk Patient - Follow-up CT at 12 months; if unchanged, no further follow-up. Nodule size > 4-6 mm: Low-Risk Patient - Follow-up CT at 12 months; if unchanged, no further follow-up. High-Risk Patient - Initial follow-up CT at 6-12 months then at 18-24 months if no change. Nodule size > 6-8 mm: Low-Risk Patient - Initial follow-up CT at 6-12 months then at 18-24 months if no change. High-Risk Patient - Initial follow-up CT at 3-6 months then at 9-12 and 24 months if no change. Low-Risk = Minimal or absent history of smoking and of other known risk factors. High-Risk = History of smoking or of other known risk factors. Electronically Signed: Amparo Mccarty MD at 1:39 EDT , Service support ,
[2021-01-06] MEDS: Losartan Potassium 50 MG Tablet PO (11:54)
[2021-01-06] MEDS: hydroCHLOROthiazide 25 MG Tablet PO (11:54)
[2021-01-06 12:05] LABS: Bedside Glucose 133 mg/dL (70-110)
--- NOTE | 2021-01-06 12:10 | CHAPLAIN ---
Type of Pastoral Visit _x__ Initial Visit ___ Follow-up Visit ___ On-call Visit ___ General Patient Visit ___ Spiritual Assessment ___ Family Conference ___ Bereavement ___ Rapid Response ___ Code Blue ___ Other (describe below) Pastoral Care Referral From _x__ Patient ___ Family ___ Nurse ___ Physician ___ Facility Manager Histology ___ Oil Heaterman ___ Other (describe below) Sacrament/Intervention _x__ Active listening ___ Anointing ___ Sikh ___ Bereavement ___ Communion _x__ Tasha exploration ___ _x__ Life review _x__ Prayer ___ Reconciliation ___ Sacrament of Sick ___ Supportive presence ___ Wedding ___ Other (describe below) Pastoral Comments
[2021-01-06] MEDS: 0.9% Saline Lock 10 ML Syringe IV (13:18)
[2021-01-06 18:11] LABS: Bedside Glucose 136 mg/dL (70-110)
[2021-01-07] VITALS (8 sets, daily range): BP systolic 152–159; BP diastolic 82–94; PULSE 98–108; RESP 16–18; TEMP 36.8–37.2; O2SAT 91–95
[2021-01-07] MEDS: Morphine 2 MG/ML Syringe IV ×4 (00:13→21:10)
[2021-01-07 00:21] LABS: Bedside Glucose 134 mg/dL (70-110)
[2021-01-07 06:21] LABS: Bedside Glucose 128 mg/dL (70-110)
[2021-01-07 06:27] LABS: Absolute Neutrophil Count 16.6 X10^3/uL (2.0-7.7); Basophil# 0.04 X10^3/uL; Basophil% 0.2 % (0-1); Eosinophil# 0.02 X10^3/uL; Eosinophils% 0.1 % (0-5); Hematocrit 43.5 % (40-54); Hemoglobin 14.4 g/dL (13.0-16.5); Lymphocyte % 6.1 % (19-41); Mean Corp Hgb Conc 33.1 g/dL (32-36); Mean Corpuscular Hgb 29.1 pg (27.0-32.0); Mean Corpuscular Volume 88.1 fL (80-94); Mean Platelet Vol. 9.8 fl (6.2-12.0); Monocyte# 1.63 X10^3/uL; Monocyte% 8.3 % (0-10); NRBC Flagged by Analyzer 0 % (0-5); Neutrophil # 16.55 X10^3/uL (2.7-7.7); Neutrophil % 84.6 % (47-70); POSITIVE DIFFERENTIAL YES; Platelet Count 174 K/mm3 (150-450); RBC Distribution Width CV 12.6 % (11.6-14.6); Red Blood Count 4.94 M/mm3 (4.6-6.2); White Blood Count 19.6 K/mm3 (4.4-11.0)
[2021-01-07 06:35] LABS: Differential Indicated SCAN CRITERIA MET
[2021-01-07 06:47] LABS: Anion Gap 9 (5-15); BUN 16 mg/dL (7-18); BUN/Creat Ratio 13.1 RATIO (10-20); Calcium,Total 8.2 mg/dL (8.5-10.1); Chloride 103 mmol/L (98-107); Creatinine, Serum 1.22 mg/dL (0.70-1.30); EST Glomerular Filtration Rate 63 mL/min (>60); Est Glom Filt Rate - Afr Amer 76 mL/min (>60); Estimated Creatinine Clearance 57.95 ml/min; Glucose 137 mg/dL (74-106); Magnesium 1.8 mg/dL (1.6-2.6); Phosphorus 2.1 mg/dL (2.5-4.9); Potassium 3.7 mmol/L (3.5-5.1); Sodium Level 137 mmol/L (136-145)
--- NOTE | 2021-01-07 07:14 | CT_ITS ---
STUDY: CT ABDOMEN AND PELVIS WITHOUT CONTRAST REASON FOR EXAM: Male, 70 years old. Distention, leukocytosis -- noncontrast. Patient has a history of diverticulitis. RADIATION DOSAGE (If Supplied By Facility): CTDIvol = ( 21.76 ) mGy, DLP = ( 1180.78 ) mGycm TECHNIQUE: Transaxial images were obtained from the dome of the diaphragm to the symphysis pubis without oral contrast, and without intravenous contrast. Sagittal and coronal images were reconstructed. Individualized dose optimization techniques were used for this CT. COMPARISON: Comparison is made with prior study date 01/05/2021. FINDINGS: Minimal degree of bibasilar dependent atelectasis. Coronary calcification. There is decreased attenuation of the liver consistent with steatosis. The patient is status post cholecystectomy. Normal spleen. There is diffuse enlargement of the head and uncinate process of the pancreas with gil-pancreatic edema suggesting acute pancreatitis. This has progressed as compared to prior study. Stable 4.2 cm x 3.1 cm fat-containing right adrenal mass. This may represent a negative no. Normal right kidney. Normal left kidney. Nonspecific mild bilateral perinephric stranding. Normal visualized stomach. Normal small intestine. There are multiple colonic diverticula consistent with diverticulosis. The appendix is visualized and appears normal. Normal abdominal aorta. Normal inferior vena cava. Normal retroperitoneum. Normal urinary bladder. There are prostatic calcifications. Normal abdominal wall. There are mild degenerative changes of the visualized lumbar spine. CT/Abdomen/Pelvis without Cont IMPRESSION: Findings in keeping with acute pancreatitis involving the head and uncinate process of the pancreas with surrounding inflammatory response. The patient is status post cholecystectomy. Stable right adrenal mass. Electronically Signed: Jamie Santos MD at 8:51 EDT , Service support ,
--- NOTE | 2021-01-07 07:15 | PN.SURG_ITS ---
Subjective Subjective Patient does not report any flatus. Patient says he is not having much abdominal pain only bloating Objective Data Objective Data Vital Signs: Vital Signs Temp Pulse Resp BP Pulse Ox 98.2 F 101 H 18 154/94 H 95 01/07/21 02:15 01/07/21 02:15 01/07/21 02:15 01/07/21 02:15 01/07/21 07:13 Oxygen Delivery Method Room Air Weight: 247 lb 5.738 oz Body Mass Index (BMI) 36.8 Intake & Output: Intake and Output for Last 24 Hours 01/05/21 01/06/21 01/07/21 23:59 23:59 23:59 Intake Total 2092.75 / 2092.75 50 / 50 Balance 2092.75 / 2092. 50 / 50 Medical Nutrition Assessment Dietitian: Nutrition Therapy Diagnosis Start: 01/06/21 14:41 Freq: Status: Active Protocol: Document 01/06/21 14:50 AG (Rec: 01/06/21 14:50 AG [id number]) Nutrition Malnutrition Evidence of Malnutrition Exists No Intake Problem Inadequate Oral Intake Etiology r/t GI dysfunction Signs/Symptoms as evidenced by PO intake meeting <50% of estimated nutritional needs x 4 days. Status Active Problem Recommendation Dietitian Recommendations/Changes Recommend advance diet as tolerated to transitional. As tolerated, recommend diet advancement to carbohydrate controlled diet. Lab / Micro Data Result Diagrams: 01/07/21 05:42 01/07/21 05:42 Labs: Laboratory Results - last 24 hr 01/06/21 11:52: POC Glucose 133 H 01/06/21 18:08: POC Glucose 136 H 01/07/21 00:15: POC Glucose 134 H 01/07/21 05:42: WBC 19.6 H, RBC 4.94, Hgb 14.4, Hct 43.5, MCV 88.1, MCH 29.1, MCHC 33.1, RDW Std Deviation 41.0, RDW Coeff of Aiyana 12.6, Plt Count 174, MPV 9.8, Immature Gran % (Auto) 0.700, Neut % (Auto) 84.6 H, Lymph % (Auto) 6.1 L, [place] % (Auto) 8.3, Eos % (Auto) 0.1, Baso % (Auto) 0.2, Absolute Neuts (auto) 16.6 H, Absolute Lymphs (auto) 1.20, Nucleated RBC % 0, Diff Path Review September01/07/21 05:42: Sodium 137, Potassium 3.7, Chloride 103, Carbon Dioxide 25.0, Anion Gap 9, BUN 16, Creatinine 1.22, Estim Creat Clear Calc 57.95, Est GFR (MDRD) Af Amer 76, Est GFR (MDRD) Non-Af 63, BUN/Creatinine Ratio 13.1, Glucose 137 H, Calcium 8.2 L, Phosphorus 2.1 L, Magnesium 1.8 01/07/21 05:50: POC Glucose 128 H Physical Exam Const no apparent distress GI Inspection: abdominal distention Palpation: Negative for tender Assessment & Plan Assessment/Plan (1) Colitis: PLAN: Patient has more abdominal distention and is very tense but he is not having any abdominal pain. His white count did increase as well. I am repeating CT scan without contrast to see if there are any changes around the sigmoid colon. If there are signs of ischemia to the colon due to distention he may need a diverting colostomy. Drake Pinon MD Pager: [facility] [address] [place] [address], [address] [place] [address] Office:
--- NOTE | 2021-01-07 07:29 | PN.HOSP_ITS ---
Subjective Subjective Patient seen and examined. He still complains of abdominal bloating. He still hasnt been able to pass gas. he is still having abdominal distension and bloating. Abdominal distension seems to have actually worsened. REview of systems is otherwise negative. He has remained hemodynamically stable. Objective Data Objective Data Vital Signs: Vital Signs Temp Pulse Resp BP Pulse Ox 98.2 F 101 H 18 154/94 H 95 01/07/21 02:15 01/07/21 02:15 01/07/21 02:15 01/07/21 02:15 01/07/21 07:13 Oxygen Delivery Method Room Air Weight: 247 lb 5.738 oz Body Mass Index (BMI) 36.8 Intake & Output: Intake and Output for Last 24 Hours 01/05/21 01/06/21 01/07/21 23:59 23:59 23:59 Intake Total 3.75 / 2093.75 50 / 50 Balance 3.75 / 3.75 50 / 50 Medical Nutrition Assessment Dietitian: Nutrition Therapy Diagnosis Start: 01/06/21 14:41 Freq: Status: Active Protocol: Document 01/06/21 14:50 AG (Rec: 01/06/21 14:50 AG [id number]) Nutrition Malnutrition Evidence of Malnutrition Exists No Intake Problem Inadequate Oral Intake Etiology r/t GI dysfunction Signs/Symptoms as evidenced by PO intake meeting <50% of estimated nutritional needs x 4 days. Status Active Problem Recommendation Dietitian Recommendations/Changes Recommend advance diet as tolerated to transitional. As tolerated, recommend diet advancement to carbohydrate controlled diet. Lab / Micro Data Result Diagrams: 01/07/21 05:42 01/07/21 05:42 Labs: Laboratory Results - last 24 hr 01/06/21 11:52: POC Glucose 133 H 01/06/21 18:08: POC Glucose 136 H 01/07/21 00:15: POC Glucose 134 H 01/07/21 05:42: WBC 19.6 H, RBC 4.94, Hgb 14.4, Hct 43.5, MCV 88.1, MCH 29.1, MCHC 33.1, RDW Std Deviation 41.0, RDW Coeff of Aiyana 12.6, Plt Count 174, MPV 9.8, Immature Gran % (Auto) 0.700, Neut % (Auto) 84.6 H, Lymph % (Auto) 6.1 L, [place] % (Auto) 8.3, Eos % (Auto) 0.1, Baso % (Auto) 0.2, Absolute Neuts (auto) 1 6.6 H, Absolute Lymphs (auto) 1.20, Nucleated RBC % 0, Diff Path Review September01/07/21 05:42: Sodium 137, Potassium 3.7, Chloride 103, Carbon Dioxide 25.0, Anion Gap 9, BUN 16, Creatinine 1.22, Estim Creat Clear Calc 57.95, Est GFR (MDRD) Af Amer 76, Est GFR (MDRD) Non-Af 63, BUN/Creatinine Ratio 13.1, Glucose 137 H, Calcium 8.2 L, Phosphorus 2.1 L, Magnesium 1.8 01/07/21 05:50: POC Glucose 128 H Physical Exam Const alert, oriented x3 and no apparent distress Exam Limitations: no limitations Nutritional Appearance: obese HEENT head/scalp atraumatic and moist oral mucous membranes Head and Scalp: normocephalic Eyes PERRL, EOMs intact bilaterally and conjunctivae normal Neck no lymphadenopathy Resp normal respiratory effort, no retractions, no use of accessory muscles and clear to auscultation bilaterally Cardio regular rate, regular rhythm, S1 normal heart sound, S2 normal heart sound and no murmurs GI GI Narrative: abdomen distended, minimal bowel sounds, no tenderness, no guarding or rebound tenderness Extremity normal to inspection, full ROM and no clubbing, cyanosis or edema Peripheral Pulses: Yes pulses 2+ throughout Skin no rashes or lesions noted Neuro oriented x3, CN's II-XII intact bilaterally and moves all extremities Sensorium / Orientation: awake and alert Psych affect normal Assessment & Plan Assessment/Plan (1) Colitis: (2) Ileus: PLAN: #Acute sigmoid colitis with ileus * abdomen still distended, and is even more distended than yesterday; still not passing gas * general surgery on board; repeat CT scan showed acute pancreatitis with peripancreatic edema. * continue keeping NPO until he starts passing gas or having a bowel movement * continue gentle hydration with IVF * #History of ventral hernia with mesh repair: stable. #Type 2 diabetes mellitus: on NPO. ISS. Accuchecks ACHS #Hypertension: on valsartan/HCTZ #Hyperlipidemia: on atorvastatin #Obesity: BMI is 36.8. Complicates acute care, expected recovery and prognosis DVT prophylaxis: lovenox Charges/Coding Visit Charges Inpatient E&M: 56660 Subs Hosp L2
[2021-01-07 09:38] LABS: Lipase 259 U/L (73-393)
[2021-01-07] MEDS: 0.9% Normal Saline 1,000 ML 75 ML IV ×2 (09:46→22:01)
[2021-01-07] MEDS: hydroCHLOROthiazide 25 MG Tablet PO (09:50)
[2021-01-07] MEDS: Losartan Potassium 50 MG Tablet PO (09:51)
[2021-01-07] MEDS: 0.9% Saline Lock 10 ML Syringe IV ×3 (09:51→21:11)
[2021-01-07 10:54] LABS: Pathologist Review Reviewed
[2021-01-07 11:56] LABS: Bedside Glucose 123 mg/dL (70-110)
[2021-01-07] MEDS: Ondansetron 4 MG/2 ML Vial IV ×2 (15:30→22:01)
--- NOTE | 2021-01-07 16:07 | NURSING ---
This RN reviewed SN charting
[2021-01-07 16:56] LABS: Bedside Glucose 122 mg/dL (70-110)
[2021-01-08] VITALS (7 sets, daily range): BP systolic 157–163; BP diastolic 79–94; PULSE 96–104; RESP 18; TEMP 36.7–37.6; O2SAT 89–98
[2021-01-08] MEDS: Morphine 2 MG/ML Syringe IV ×4 (00:21→17:38)
[2021-01-08] MEDS: 0.9% Saline Lock 10 ML Syringe IV ×4 (00:21→17:38)
[2021-01-08 00:31] LABS: Bedside Glucose 118 mg/dL (70-110)
[2021-01-08 06:10] LABS: Absolute Neutrophil Count 11.4 X10^3/uL (2.0-7.7); Basophil# 0.05 X10^3/uL; Basophil% 0.4 % (0-1); Eosinophils% 0.7 % (0-5); Hematocrit 41.9 % (40-54); Hemoglobin 13.9 g/dL (13.0-16.5); Lymphocyte % 8.5 % (19-41); Mean Corp Hgb Conc 33.2 g/dL (32-36); Mean Corpuscular Hgb 29.2 pg (27.0-32.0); Mean Platelet Vol. 9.4 fl (6.2-12.0); Monocyte# 1.36 X10^3/uL; Monocyte% 9.6 % (0-10); NRBC Flagged by Analyzer 0 % (0-5); Neutrophil # 11.37 X10^3/uL (2.7-7.7); Neutrophil % 80.2 % (47-70); Platelet Count 187 K/mm3 (150-450); RBC Distribution Width CV 12.4 % (11.6-14.6); RBC Distribution Width SD 40.1 fl (35.1-43.9); Red Blood Count 4.76 M/mm3 (4.6-6.2); White Blood Count 14.2 K/mm3 (4.4-11.0)
[2021-01-08 07:04] LABS: Anion Gap 8 (5-15); BUN 17 mg/dL (7-18); BUN/Creat Ratio 16.7 RATIO (10-20); Calcium,Total 8.2 mg/dL (8.5-10.1); Chloride 104 mmol/L (98-107); Creatinine, Serum 1.02 mg/dL (0.70-1.30); EST Glomerular Filtration Rate 77 mL/min (>60); Est Glom Filt Rate - Afr Amer 93 mL/min (>60); Estimated Creatinine Clearance 69.31 ml/min; Glucose 115 mg/dL (74-106); Potassium 3.6 mmol/L (3.5-5.1); Sodium Level 136 mmol/L (136-145)
--- NOTE | 2021-01-08 07:45 | PN.SURG_ITS ---
Subjective Subjective Patient is not reporting any flatus. He is having some belching. He did have some lower abdominal pain last night. Objective Data Objective Data Vital Signs: Vital Signs Temp Pulse Resp BP Pulse Ox 99.7 F H 99 18 163/94 H 95 01/08/21 04:03 01/08/21 04:03 01/08/21 04:03 01/08/21 04:03 01/08/21 04:03 Oxygen Delivery Method Room Air Weight: 246 lb 11.156 oz Body Mass Index (BMI) 36.8 Intake & Output: Intake and Output for Last 24 Hours 01/06/21 01/07/21 01/08/21 23:59 23:59 23:59 Intake Total 3.75 / 2092.75 2067.75 / 2067.75 50 / 50 Balance 2092.75 / 2092.75 2067. / 2067. 50 / 50 Medical Nutrition Assessment Dietitian: Nutrition Therapy Diagnosis Start: 01/06/21 14:41 Freq: Status: Active Protocol: Document 01/06/21 14:50 AG (Rec: 01/06/21 14:50 AG [id number]) Nutrition Malnutrition Evidence of Malnutrition Exists No Intake Problem Inadequate Oral Intake Etiology r/t GI dysfunction Signs/Symptoms as evidenced by PO intake meeting <50% of estimated nutritional needs x 4 days. Status Active Problem Recommendation Dietitian Recommendations/Changes Recommend advance diet as tolerated to transitional. As tolerated, recommend diet advancement to carbohydrate controlled diet. Lab / Micro Data Result Diagrams: 01/08/21 05:42 01/08/21 05:42 Labs: Laboratory Results - last 24 hr 01/07/21 05:42: Diff Path Review Reviewed 01/07/21 05:42: Lipase 259 01/07/21 11:51: POC Glucose 123 H 01/07/21 16:52: POC Glucose 122 H 01/08/21 00:16: POC Glucose 118 H 01/08/21 05:42: WBC 14.2 H, RBC 4.76, Hgb 13.9, Hct 41.9, MCV 88.0, MCH 29.2, MCHC 33.2, RDW Std Deviation 40.1, RDW Coeff of Aiyana 12.4, Plt Count 187, MPV 9.4, Immature Gran % (Auto) 0.600, Neut % (Auto) 80.2 H, Lymph % (Auto) 8.5 L, [place] % (Auto) 9.6, Eos % (Auto) 0.7, Baso % (Auto) 0.4, Absolute Neuts (auto) 11.4 H, Absolute Lymphs (auto) 1.20, Nucleated RBC % 0 01/08/21 05:42: Sodium 136, Potassium 3.6, Chloride 104, Carbon Dioxide 24.0, Anion Gap 8, BUN 17, Creatinine 1.02, Estim Creat Clear Calc 69.31, Est GFR (MDRD) Af Amer 93, Est GFR (MDRD) Non-Af 77, BUN/Creatinine Ratio 16.7, Glucose 115 H, Calcium 8.2 L Radiography Diagnostic Testing: Radiology Impression Abdomen/Pelvis CT 01/07/21 07:14 IMPRESSION: Findings in keeping with acute pancreatitis involving the head and uncinate process of the pancreas with surrounding inflammatory response. The patient is status post cholecystectomy. Stable right adrenal mass. Electronically Signed: Jamie Santos MD at 8:51 EDT , Service support , Physical Exam Const no apparent distress Resp normal respiratory effort GI soft to palpation Inspection: abdominal distention Assessment & Plan Assessment/Plan (1) Ileus: (2) Colitis: PLAN: The patient is still having ileus. His abdomen is softer than it was yesterday. I repeated a CT yesterday which did not show distention of the small bowel or extreme distention of the colon. There was some gas in the transverse and ascending colon with contrast in the ascending colon. The pancreas was slightly inflamed on the CT scan but the lipase was not very elevated yesterday. The patient's white count is coming back down I recommend continuing n.p.o. status and ambulating. Await bowel function. Drake Pinon MD Pager: [facility] [address] [place] [address], [address] [place] [address] Office:
[2021-01-08] MEDS: hydroCHLOROthiazide 25 MG Tablet PO (09:34)
[2021-01-08] MEDS: Losartan Potassium 50 MG Tablet PO (09:35)
--- NOTE | 2021-01-08 11:02 | PN.HOSP_ITS ---
Subjective Subjective Patient seen and examined. He still complains of abdominal distention and states he had a bit of abdominal pain yesterday but it resolved today. He has not passed gas but says he has been burping a bit and has not had any bowel movements. Review of systems otherwise negative. He has remained hemodynamically stable. Objective Data Objective Data Vital Signs: Vital Signs Temp Pulse Resp BP Pulse Ox 98.5 F 104 H 18 157/79 H 94 01/08/21 09:30 01/08/21 09:30 01/08/21 09:30 01/08/21 09:30 01/08/21 09:30 Oxygen Delivery Method Room Air Weight: 246 lb 11.156 oz Body Mass Index (BMI) 36.8 Intake & Output: Intake and Output for Last 24 Hours 01/06/21 01/07/21 01/08/21 23:59 23:59 23:59 Intake Total 2093.75 / 2093.75 2068.75 / 2068.75 50 / 50 Balance 2093.75 / 2093.75 2068.75 / 2068.75 50 / 50 Medical Nutrition Assessment Dietitian: Nutrition Therapy Diagnosis Start: 01/06/21 14:41 Freq: Status: Active Protocol: Document 01/06/21 14:50 AG (Rec: 01/06/21 14:50 AG [id number]) Nutrition Malnutrition Evidence of Malnutrition Exists No Intake Problem Inadequate Oral Intake Etiology r/t GI dysfunction Signs/Symptoms as evidenced by PO intake meeting <50% of estimated nutritional needs x 4 days. Status Active Problem Recommendation Dietitian Recommendations/Changes Recommend advance diet as tolerated to transitional. As tolerated, recommend diet advancement to carbohydrate controlled diet. Lab / Micro Data Result Diagrams: 01/08/21 05:42 01/08/21 05:42 Labs: Laboratory Results - last 24 hr 01/07/21 11:51: POC Glucose 123 H 01/07/21 16:52: POC Glucose 122 H 01/08/21 00:16: POC Glucose 118 H 01/08/21 05:42: WBC 14.2 H, RBC 4.76, Hgb 13.9, Hct 41.9, MCV 88.0, MCH 29.2, MCHC 33.2, RDW Std Deviation 40.1, RDW Coeff of Aiyana 12.4, Plt Count 187, MPV 9.4, Immature Gran % (Auto) 0.600, Neut % (Auto) 80.2 H, Lymph % (Auto) 8.5 L, [place] % (Auto) 9.6, Eos % (Auto) 0.7, Baso % (Auto) 0.4, Absolute Neuts (auto) 11.4 H, Absolute Lymphs (auto) 1.20, Nucleated RBC % 0 01/08/21 05:42: Sodium 136, Potassium 3.6, Chloride 104, Carbon Dioxide 24.0, Anion Gap 8, BUN 17, Creatinine 1.02, Estim Creat Clear Calc 69.31, Est GFR (MDRD) Af Amer 93, Est GFR (MDRD) Non-Af 77, BUN/Creatinine Ratio 16.7, Glucose 115 H, Calcium 8.2 L Physical Exam Const alert, oriented x3 and no apparent distress Exam Limitations: no limitations Nutritional Appearance: obese HEENT head/scalp atraumatic and moist oral mucous membranes Head and Scalp: normocephalic Eyes PERRL, EOMs intact bilaterally and conjunctivae normal Neck no lymphadenopathy Resp normal respiratory effort, no retractions, no use of accessory muscles and clear to auscultation bilaterally Cardio regular rate, regular rhythm, S1 normal heart sound, S2 normal heart sound and no murmurs GI GI Narrative: abdomen remains distended, minimal bowel sounds, no tenderness, no guarding or rebound tenderness Extremity normal to inspection, full ROM and no clubbing, cyanosis or edema Peripheral Pulses: Yes pulses 2+ throughout Skin no rashes or lesions noted Neuro oriented x3, CN's II-XII intact bilaterally and moves all extremities Sensorium / Orientation: awake and alert Psych affect normal Assessment & Plan Assessment/Plan (1) Colitis: (2) Ileus: PLAN: #Acute sigmoid colitis with ileus * abdomen still distended, still not passing gas, but has burped. * general surgery on board; repeat CT scan showed acute pancreatitis with peripancreatic edema. * continue keeping NPO * gentle hydration with IVF * continue to encourage ambulation * #Acute pancreatitis * CT of hte abdomen showed acute pancreatitis with peripancreatic edema * patient has had minimal abdominal pain, and lipase wasnt elevated also * continue keeping NPO for now and continue gentle hydration with IVF * #History of ventral hernia with mesh repair: stable. #Type 2 diabetes mellitus: on NPO. ISS. Accuchecks ACHS #Hypertension: on valsartan/HCTZ #Hyperlipidemia: on atorvastatin #Obesity: BMI is 36.8. Complicates acute care, expected recovery and prognosis DVT prophylaxis: lovenox Charges/Coding Visit Charges Inpatient E&M: 57015 Subs Hosp L2
[2021-01-08] MEDS: 0.9% Normal Saline 1,000 ML 75 ML IV (11:23)
[2021-01-08 12:45] LABS: Bedside Glucose 116 mg/dL (70-110)
[2021-01-08] MEDS: Ondansetron 4 MG/2 ML Vial IV (16:16)
[2021-01-08 16:51] LABS: Bedside Glucose 102 mg/dL (70-110)
[2021-01-08] MEDS: MENTHOL 226.8 GM JAR 1 APPLIC TOPICAL (20:14)
[2021-01-08 23:26] LABS: Bedside Glucose 132 mg/dL (70-110)
[2021-01-08 23:41] LABS: Bedside Glucose 117 mg/dL (70-110)
[2021-01-09] MEDS: Ondansetron 4 MG/2 ML Vial IV (00:55)
[2021-01-09] MEDS: Morphine 2 MG/ML Syringe IV ×2 (00:55→23:56)
[2021-01-09] MEDS: 0.9% Normal Saline 1,000 ML 75 ML IV ×2 (00:59→13:55)
[2021-01-09 02:17] VITALS: BP 165/103; PULSE 86; RESP 18; TEMP 37.1; O2SAT 97
[2021-01-09] MEDS: Acetaminophen 325 MG Tablet 650 MG PO (02:21)
[2021-01-09 06:34] LABS: Absolute Lymphocyte Count 1.42 X10^3/uL (0.83-4.51); Absolute Neutrophil Count 8.5 X10^3/uL (2.0-7.7); Basophil# 0.06 X10^3/uL; Basophil% 0.5 % (0-1); Eosinophil# 0.12 X10^3/uL; Eosinophils% 1.1 % (0-5); Hematocrit 43.1 % (40-54); Hemoglobin 14.3 g/dL (13.0-16.5); Lymphocyte # 1.42 X10^3/ul (0.83-4.51); Lymphocyte % 12.5 % (19-41); Mean Corp Hgb Conc 33.2 g/dL (32-36); Mean Corpuscular Hgb 29.2 pg (27.0-32.0); Mean Corpuscular Volume 88.1 fL (80-94); Mean Platelet Vol. 9.6 fl (6.2-12.0); Monocyte# 1.23 X10^3/uL; Monocyte% 10.8 % (0-10); NRBC Flagged by Analyzer 0 % (0-5); Neutrophil % 74.7 % (47-70); Platelet Count 192 K/mm3 (150-450); RBC Distribution Width CV 12.3 % (11.6-14.6); RBC Distribution Width SD 39.4 fl (35.1-43.9); Red Blood Count 4.89 M/mm3 (4.6-6.2); White Blood Count 11.4 K/mm3 (4.4-11.0)
[2021-01-09 06:35] LABS: Bedside Glucose 104 mg/dL (70-110)
[2021-01-09 06:52] LABS: Anion Gap 9 (5-15); BUN 20 mg/dL (7-18); BUN/Creat Ratio 17.5 RATIO (10-20); Calcium,Total 8.4 mg/dL (8.5-10.1); Chloride 102 mmol/L (98-107); Creatinine, Serum 1.14 mg/dL (0.70-1.30); EST Glomerular Filtration Rate 68 mL/min (>60); Est Glom Filt Rate - Afr Amer 82 mL/min (>60); Estimated Creatinine Clearance 62.02 ml/min; Glucose 107 mg/dL (74-106); Potassium 3.5 mmol/L (3.5-5.1); Sodium Level 138 mmol/L (136-145); Triglycerides 81 mg/dL
--- NOTE | 2021-01-09 07:28 | PCM.PN.SRG ---
Subjective Subjective Patient reports he is passing flatus and his abdomen feels better Objective Data Objective Data Vital Signs: Vital Signs Temp Pulse Resp BP Pulse Ox 98.7 F 86 18 165/103 H 97 01/09/21 02:17 01/09/21 02:17 01/09/21 02:17 01/09/21 02:17 01/09/21 02:17 Oxygen Delivery Method Room Air Weight: 244 lb 14.937 oz Body Mass Index (BMI) 36.8 Intake & Output: Intake and Output for Last 24 Hours 01/07/21 01/08/21 01/09/21 23:59 23:59 23:59 Intake Total 2068.75 / 2068.75 1150 / 1150 1050 / 1050 Balance 2068.75 / 2068.75 1150 / 1150 1050 / 1050 Medical Nutrition Assessment Dietitian: Nutrition Therapy Diagnosis Start: 01/06/21 14:41 Freq: Status: Active Protocol: Document 01/06/21 14:50 AG (Rec: 01/06/21 14:50 AG [id number]) Nutrition Malnutrition Evidence of Malnutrition Exists No Intake Problem Inadequate Oral Intake Etiology r/t GI dysfunction Signs/Symptoms as evidenced by PO intake meeting <50% of estimated nutritional needs x 4 days. Status Active Problem Recommendation Dietitian Recommendations/Changes Recommend advance diet as tolerated to transitional. As tolerated, recommend diet advancement to carbohydrate controlled diet. Lab / Micro Data Result Diagrams: 01/09/21 05:25 01/09/21 05:25 Labs: Laboratory Results - last 24 hr 01/08/21 06:31: POC Glucose 132 H 01/08/21 11:51: POC Glucose 116 H 01/08/21 16:46: POC Glucose 102 01/08/21 23:32: POC Glucose 117 H 01/09/21 05:25: WBC 11.4 H, RBC 4.89, Hgb 14.3, Hct 43.1, MCV 88.1, MCH 29.2, MCHC 33.2, RDW Std Deviation 39.4, RDW Coeff of Aiyana 12.3, Plt Count 192, MPV 9.6, Immature Gran % (Auto) 0.400, Neut % (Auto) 74.7 H, Lymph % (Auto) 12.5 L, [place] % (Auto) 10.8 H, Eos % (Auto) 1.1, Baso % (Auto) 0.5, Absolute Neuts (auto) 8.5 H, Absolute Lymphs (auto) 1.42, Nucleated RBC % 0 01/09/21 05:25: Sodium 138, Potassium 3.5, Chloride 102, Carbon Dioxide 27.0, Anion Gap 9, BUN 20 H, Creatinine 1.14, Estim Creat Clear Calc 62.02, Est GFR (MDRD) Af Amer 82, Est GFR (MDRD) Non-Af 68, BUN/Creatinine Ratio 17.5, Glucose 107 H, Calcium 8.4 L, Triglycerides 81 01/09/21 05:53: POC Glucose 104 Physical Exam Const no apparent distress Resp normal respiratory effort Cardio regular rate and regular rhythm GI soft to palpation and non-tender Assessment & Plan Assessment/Plan (1) Ileus: (2) Colitis: PLAN: Patient reports he is passing flatus so I will start a clear liquid diet. Abdomen is minimally distended with minimal pain. Drake Pinon MD Pager: [facility] [address] [place] [address], [address] [place] [address] Office:
[2021-01-09] MEDS: hydroCHLOROthiazide 25 MG Tablet PO (08:02)
[2021-01-09] MEDS: Losartan Potassium 50 MG Tablet PO (08:02)
[2021-01-09 08:15] VITALS: BP 177/91; PULSE 88; RESP 18; TEMP 36.9; O2SAT 95
[2021-01-09 11:35] LABS: Bedside Glucose 125 mg/dL (70-110)
--- NOTE | 2021-01-09 13:00 | PN.HOSP_ITS ---
Subjective Subjective Patient seen and examined. He felt much better today and says he started passing quite a significant amount of gas. He did have some mild abdominal pain yesterday but that has resolved. Review of symptoms otherwise negative. He has remained hemodynamically stable. Objective Data Objective Data Vital Signs: Vital Signs Temp Pulse Resp BP Pulse Ox 98.5 F 88 18 177/91 H 95 01/09/21 08:15 01/09/21 08:15 01/09/21 08:15 01/09/21 08:15 01/09/21 08:15 Oxygen Delivery Method Room Air Weight: 244 lb 14.937 oz Body Mass Index (BMI) 36.8 Intake & Output: Intake and Output for Last 24 Hours 01/07/21 01/08/21 01/09/21 23:59 23:59 23:59 Intake Total 2068.75 / 2068.75 1150 / 1150 2156 / 2156 Balance 2068.75 / 2068.75 1150 / 1150 2156 / 2156 Medical Nutrition Assessment Dietitian: Nutrition Therapy Diagnosis Start: 01/06/21 14:41 Freq: Status: Active Protocol: Document 01/06/21 14:50 AG (Rec: 01/06/21 14:50 AG [id number]) Nutrition Malnutrition Evidence of Malnutrition Exists No Intake Problem Inadequate Oral Intake Etiology r/t GI dysfunction Signs/Symptoms as evidenced by PO intake meeting <50% of estimated nutritional needs x 4 days. Status Active Problem Recommendation Dietitian Recommendations/Changes Recommend advance diet as tolerated to transitional. As tolerated, recommend diet advancement to carbohydrate controlled diet. Lab / Micro Data Result Diagrams: 01/09/21 05:25 01/09/21 05:25 Labs: Laboratory Results - last 24 hr 01/08/21 06:31: POC Glucose 132 H 01/08/21 16:46: POC Glucose 102 01/08/21 23:32: POC Glucose 117 H 01/09/21 05:25: WBC 11.4 H, RBC 4.89, Hgb 14.3, Hct 43.1, MCV 88.1, MCH 29.2, MCHC 33.2, RDW Std Deviation 39.4, RDW Coeff of Aiyana 12.3, Plt Count 192, MPV 9.6, Immature Gran % (Auto) 0.400, Neut % (Auto) 74.7 H, Lymph % (Auto) 12.5 L, [place] % (Auto) 10.8 H, Eos % (Auto) 1.1, Baso % (Auto) 0.5, Absolute Neuts (auto) 8.5 H, Absolute Lymphs (auto) 1.42, Nucleated RBC % 0 01/09/21 05:25: Sodium 138, Potassium 3.5, Chloride 102, Carbon Dioxide 27.0, Anion Gap 9, BUN 20 H, Creatinine 1.14, Estim Creat Clear Calc 62.02, Est GFR (MDRD) Af Amer 82, Est GFR (MDRD) Non-Af 68, BUN/Creatinine Ratio 17.5, Glucose 107 H, Calcium 8.4 L, Triglycerides 81 01/09/21 05:53: POC Glucose 104 01/09/21 11:28: POC Glucose 125 H Physical Exam Const alert, oriented x3 and no apparent distress Exam Limitations: no limitations Nutritional Appearance: obese HEENT head/scalp atraumatic and moist oral mucous membranes Head and Scalp: normocephalic Eyes PERRL, EOMs intact bilaterally and conjunctivae normal Neck no lymphadenopathy Resp normal respiratory effort, no retractions, no use of accessory muscles and clear to auscultation bilaterally Cardio regular rate, regular rhythm, S1 normal heart sound, S2 normal heart sound and no murmurs GI GI Narrative: abdomen remains distended, now has normal bowel sounds, no tenderness, no guarding or rebound tenderness Extremity normal to inspection, full ROM and no clubbing, cyanosis or edema Peripheral Pulses: Yes pulses 2+ throughout Skin no rashes or lesions noted Neuro oriented x3, CN's II-XII intact bilaterally and moves all extremities Sensorium / Orientation: awake and alert Psych affect normal Assessment & Plan Assessment/Plan (1) Colitis: (2) Ileus: PLAN: #Acute sigmoid colitis with ileus * now passing significant amount of gas. * general surgery on board * started on clear liquid diet today * continue gentle hydration, and DC IVF if he is having adequate oral intake. * general surgery on board; repeat CT scan showed acute pancreatitis with peripancreatic edema. * continue keeping NPO * gentle hydration with IVF * continue to encourage ambulation * #Acute pancreatitis * CT of the abdomen showed acute pancreatitis with peripancreatic edema * patient is s/p cholecystectomy, and doesnt drink much alcohol. Triglycerides were also normal, so etiology of pancreatitis is unclear. * #History of ventral hernia with mesh repair: stable. #Type 2 diabetes mellitus: now on clear liquid diet. ISS. Accuchecks ACHS #Hypertension: on valsartan/HCTZ #Hyperlipidemia: on atorvastatin #Obesity: BMI is 36.8. Complicates acute care, expected recovery and prognosis DVT prophylaxis: lovenox Charges/Coding Visit Charges Inpatient E&M: 14070 Subs Hosp L2
[2021-01-09 15:00] VITALS: BP 154/87; PULSE 93; RESP 18; TEMP 36.8; O2SAT 96
[2021-01-09 16:45] LABS: Bedside Glucose 125 mg/dL (70-110)
[2021-01-09 22:00] VITALS: BP 163/92; PULSE 84; RESP 16; TEMP 36.7; O2SAT 94
[2021-01-10] LABS: Bedside Glucose 138 mg/dL (70-110)
[2021-01-10] MEDS: Ondansetron 4 MG/2 ML Vial IV (02:05)
[2021-01-10] MEDS: 0.9% Normal Saline 1,000 ML 75 ML IV (02:08)
[2021-01-10 02:10] VITALS: BP 180/98; PULSE 85
[2021-01-10] MEDS: hydrALAZINE 20 MG/ML Vial 10 MG IV (02:10)
[2021-01-10 02:11] VITALS: BP 180/98; PULSE 85; RESP 18; TEMP 36.6; O2SAT 94
[2021-01-10 03:42] VITALS: BP 155/88; PULSE 89
[2021-01-10] MEDS: amLODIPine 5 MG Tablet PO (04:06)
[2021-01-10] MEDS: Acetaminophen 325 MG Tablet 650 MG PO (06:15)
[2021-01-10 06:46] LABS: Bedside Glucose 136 mg/dL (70-110)
--- NOTE | 2021-01-10 06:54 | PCM.PN.SRG ---
Subjective Subjective Patient still passing some mild flatus but he feels like things are starting to move through but pushing against something and he had some cramping. He has not had any bowel movements yet. No nausea or vomiting Objective Data Objective Data Vital Signs: Vital Signs Temp Pulse Resp BP Pulse Ox 97.9 F 89 18 155/88 H 94 01/10/21 02:11 01/10/21 03:42 01/10/21 02:11 01/10/21 03:42 01/10/21 02:11 Oxygen Delivery Method Room Air Weight: 246 lb 14.684 oz Body Mass Index (BMI) 36.8 Intake & Output: Intake and Output for Last 24 Hours 01/08/21 01/09/21 01/10/21 23:59 23:59 23:59 Intake Total 1150 / 1150 3176 / 3176 966.25 / 966.25 Balance 1150 / 1150 3176 / 3176 966.25 / 966.25 Medical Nutrition Assessment Dietitian: Nutrition Therapy Diagnosis Start: 01/06/21 14:41 Freq: Status: Active Protocol: Document 01/06/21 14:50 AG (Rec: 01/06/21 14:50 AG [id number]) Nutrition Malnutrition Evidence of Malnutrition Exists No Intake Problem Inadequate Oral Intake Etiology r/t GI dysfunction Signs/Symptoms as evidenced by PO intake meeting <50% of estimated nutritional needs x 4 days. Status Active Problem Recommendation Dietitian Recommendations/Changes Recommend advance diet as tolerated to transitional. As tolerated, recommend diet advancement to carbohydrate controlled diet. Lab / Micro Data Result Diagrams: 01/09/21 05:25 01/09/21 05:25 Labs: Laboratory Results - last 24 hr 01/09/21 11:28: POC Glucose 125 H 01/09/21 16:28: POC Glucose 125 H 01/09/21 23:53: POC Glucose 138 H 01/10/21 06:12: POC Glucose 136 H Physical Exam Const oriented x3 and no apparent distress Resp normal respiratory effort Cardio regular rate GI soft to palpation and non-tender Assessment & Plan Assessment/Plan (1) Colitis: (2) Ileus: PLAN: Patient reports no nausea or vomiting but he did have some discomfort yesterday evening as he felt there was a lot of cramping and things are trying to push through. Once he starts having bowel movements I will advance his diet. Otherwise continue clear liquids until then. Drake Pinon MD Pager: [facility] [address] [place] [address], [address] [place] [address] Office:
[2021-01-10 07:00] LABS: Absolute Lymphocyte Count 1.23 X10^3/uL (0.83-4.51); Absolute Neutrophil Count 7.3 X10^3/uL (2.0-7.7); Basophil# 0.04 X10^3/uL; Basophil% 0.4 % (0-1); Eosinophil# 0.13 X10^3/uL; Eosinophils% 1.3 % (0-5); Hematocrit 39.8 % (40-54); Hemoglobin 13.3 g/dL (13.0-16.5); Lymphocyte # 1.23 X10^3/ul (0.83-4.51); Lymphocyte % 12.4 % (19-41); Mean Corp Hgb Conc 33.4 g/dL (32-36); Mean Corpuscular Hgb 29.3 pg (27.0-32.0); Mean Corpuscular Volume 87.7 fL (80-94); Mean Platelet Vol. 9.4 fl (6.2-12.0); Monocyte# 1.21 X10^3/uL; Monocyte% 12.2 % (0-10); NRBC Flagged by Analyzer 0 % (0-5); Neutrophil # 7.29 X10^3/uL (2.7-7.7); Neutrophil % 73.2 % (47-70); Platelet Count 187 K/mm3 (150-450); RBC Distribution Width CV 12.1 % (11.6-14.6); RBC Distribution Width SD 38.9 fl (35.1-43.9); Red Blood Count 4.54 M/mm3 (4.6-6.2)
[2021-01-10 07:03] LABS: Anion Gap 5 (5-15); BUN 15 mg/dL (7-18); Calcium,Total 8.2 mg/dL (8.5-10.1); Chloride 102 mmol/L (98-107); Creatinine, Serum 1.07 mg/dL (0.70-1.30); EST Glomerular Filtration Rate 73 mL/min (>60); Est Glom Filt Rate - Afr Amer 88 mL/min (>60); Estimated Creatinine Clearance 66.07 ml/min; Glucose 125 mg/dL (74-106); Potassium 3.3 mmol/L (3.5-5.1); Sodium Level 138 mmol/L (136-145)
[2021-01-10 08:15] VITALS: BP 142/81; PULSE 89; RESP 18; TEMP 37.1; O2SAT 94
[2021-01-10] MEDS: Potassium Chloride Oral Soln 20 MEQ/15 ML UDC 40 MEQ PO (10:07)
[2021-01-10] MEDS: hydroCHLOROthiazide 25 MG Tablet PO (10:08)
[2021-01-10] MEDS: Losartan Potassium 50 MG Tablet PO (10:09)
[2021-01-10 11:40] LABS: Bedside Glucose 160 mg/dL (70-110)
--- NOTE | 2021-01-10 11:46 | PN.HOSP_ITS ---
Subjective Subjective Patient seen and examined. He had some abdominal pain overnight which improved with pain meds. He had been advanced to a transitional diet yesterday, but had to be scaled back to clear liquid diet. He is still passing gas. Review of systems is otherwise negative. He subsequently had a small bowel movement later in the morning. Objective Data Objective Data Vital Signs: Vital Signs Temp Pulse Resp BP Pulse Ox 98.8 F 89 18 142/81 H 94 01/10/21 08:15 01/10/21 08:15 01/10/21 08:15 01/10/21 08:15 01/10/21 08:15 Oxygen Delivery Method Room Air Weight: 246 lb 14.684 oz Body Mass Index (BMI) 36.8 Intake & Output: Intake and Output for Last 24 Hours 01/08/21 01/09/21 01/10/21 23:59 23:59 23:59 Intake Total 1150 / 1150 3176 / 3176 1016.25 / 1016.25 Balance 1150 / 1150 3176 / 3176 1016.25 / 1016.25 Medical Nutrition Assessment Dietitian: Nutrition Therapy Diagnosis Start: 01/06/21 14:41 Freq: Status: Active Protocol: Document 01/06/21 14:50 AG (Rec: 01/06/21 14:50 AG [id number]) Nutrition Malnutrition Evidence of Malnutrition Exists No Intake Problem Inadequate Oral Intake Etiology r/t GI dysfunction Signs/Symptoms as evidenced by PO intake meeting <50% of estimated nutritional needs x 4 days. Status Active Problem Recommendation Dietitian Recommendations/Changes Recommend advance diet as tolerated to transitional. As tolerated, recommend diet advancement to carbohydrate controlled diet. Lab / Micro Data Result Diagrams: 01/10/21 05:25 01/10/21 05:25 Labs: Laboratory Results - last 24 hr 01/09/21 16:28: POC Glucose 125 H 01/09/21 23:53: POC Glucose 138 H 01/10/21 05:25: WBC 10.0, RBC 4.54 L, Hgb 13.3, Hct 39.8 L, MCV 87.7, MCH 29.3, MCHC 33.4, RDW Std Deviation 38.9, RDW Coeff of Aiyana 12.1, Plt Count 187, MPV 9.4, Immature Gran % (Auto) 0.500, Neut % (Auto) 73.2 H, Lymph % (Auto) 12.4 L, [place] % (Auto) 12.2 H, Eos % (Auto) 1.3, Baso % (Auto) 0.4, Absolute Neuts (auto) 7.3, Absolute Lymphs (auto) 1.23, Nucleated RBC % 0 01/10/21 05:25: Sodium 138, Potassium 3.3 L, Chloride 102, Carbon Dioxide 31.0, Anion Gap 5, BUN 15, Creatinine 1.07, Estim Creat Clear Calc 66.07, Est GFR (MDRD) Af Amer 88, Est GFR (MDRD) Non-Af 73, BUN/Creatinine Ratio 14.0, Glucose 125 H, Calcium 8.2 L 01/10/21 06:12: POC Glucose 136 H 01/10/21 11:32: POC Glucose 160 H Physical Exam Const alert, oriented x3 and no apparent distress Exam Limitations: no limitations Nutritional Appearance: obese HEENT head/scalp atraumatic and moist oral mucous membranes Head and Scalp: normocephalic Eyes PERRL, EOMs intact bilaterally and conjunctivae normal Neck no lymphadenopathy Resp normal respiratory effort, no retractions, no use of accessory muscles and clear to auscultation bilaterally Cardio regular rate, regular rhythm, S1 normal heart sound, S2 normal heart sound and no murmurs GI GI Narrative: abdomen minimally distended, now has normal bowel sounds, no tende rness Extremity normal to inspection, full ROM and no clubbing, cyanosis or edema Peripheral Pulses: Yes pulses 2+ throughout Skin no rashes or lesions noted Neuro oriented x3, CN's II-XII intact bilaterally and moves all extremities Sensorium / Orientation: awake and alert Psych affect normal Assessment & Plan Assessment/Plan (1) Colitis: (2) Ileus: PLAN: #Acute sigmoid colitis with ileus * still passing gas, and had a small bowel movement today * general surgery on board * will dc IV zosyn. * continue on clear liquid diet; advance as per general surgery recommendation * encourage ambulation. * * * #Acute pancreatitis * CT of the abdomen showed acute pancreatitis with peripancreatic edema * patient is s/p cholecystectomy, and doesnt drink much alcohol. Triglycerides were also normal, so etiology of pancreatitis is unclear. * resolving. pain is much better * #History of ventral hernia with mesh repair: stable. #Type 2 diabetes mellitus: now on clear liquid diet. ISS. Accuchecks ACHS #Hypertension: on valsartan/HCTZ #Hyperlipidemia: on atorvastatin #Obesity: BMI is 36.8. Complicates acute care, expected recovery and prognosis DVT prophylaxis: lovenox Charges/Coding Visit Charges Inpatient E&M: 75496 Subs Hosp L2
[2021-01-10 15:00] VITALS: BP 151/90; PULSE 95; RESP 18; TEMP 36.6; O2SAT 96
[2021-01-10 16:36] LABS: Bedside Glucose 144 mg/dL (70-110)
[2021-01-10 20:15] VITALS: BP 139/81; PULSE 82; RESP 16; TEMP 36.9; O2SAT 95
[2021-01-10] MEDS: Insulin Lispro 100 UNIT/ML INSULN.PEN SC (23:47)
[2021-01-10] MEDS: 0.9% Saline Lock 10 ML Syringe IV (23:48)
[2021-01-10 23:51] LABS: Bedside Glucose 173 mg/dL (70-110)
[2021-01-11 02:15] VITALS: BP 152/90; PULSE 88; RESP 16; TEMP 37.1; O2SAT 94
[2021-01-11 06:24] LABS: Absolute Lymphocyte Count 1.62 X10^3/uL (0.83-4.51); Absolute Neutrophil Count 5.7 X10^3/uL (2.0-7.7); Basophil# 0.05 X10^3/uL; Basophil% 0.6 % (0-1); Eosinophil# 0.22 X10^3/uL; Eosinophils% 2.5 % (0-5); Hematocrit 40.5 % (40-54); Hemoglobin 13.4 g/dL (13.0-16.5); Lymphocyte # 1.62 X10^3/ul (0.83-4.51); Lymphocyte % 18.8 % (19-41); Mean Corp Hgb Conc 33.1 g/dL (32-36); Mean Corpuscular Hgb 28.8 pg (27.0-32.0); Mean Corpuscular Volume 87.1 fL (80-94); Mean Platelet Vol. 8.5 fl (6.2-12.0); Monocyte% 11.6 % (0-10); NRBC Flagged by Analyzer 0 % (0-5); Platelet Count 211 K/mm3 (150-450); RBC Distribution Width CV 12.2 % (11.6-14.6); RBC Distribution Width SD 38.9 fl (35.1-43.9); Red Blood Count 4.65 M/mm3 (4.6-6.2); White Blood Count 8.6 K/mm3 (4.4-11.0)
[2021-01-11 06:36] LABS: Bedside Glucose 130 mg/dL (70-110)
[2021-01-11 06:46] LABS: Anion Gap 4 (5-15); BUN 17 mg/dL (7-18); BUN/Creat Ratio 14.5 RATIO (10-20); Calcium,Total 8.5 mg/dL (8.5-10.1); Chloride 103 mmol/L (98-107); Creatinine, Serum 1.17 mg/dL (0.70-1.30); EST Glomerular Filtration Rate 66 mL/min (>60); Est Glom Filt Rate - Afr Amer 80 mL/min (>60); Estimated Creatinine Clearance 60.43 ml/min; Glucose 139 mg/dL (74-106); Potassium 3.7 mmol/L (3.5-5.1); Sodium Level 137 mmol/L (136-145)
--- NOTE | 2021-01-11 07:32 | PCM.PN.SRG ---
Subjective Subjective Patient reports he is tolerating diet and having no abdominal pain he is passing gas and had another bowel movement. Objective Data Objective Data Vital Signs: Vital Signs Temp Pulse Resp BP Pulse Ox 98.8 F 88 16 152/90 H 94 01/11/21 02:15 01/11/21 02:15 01/11/21 02:15 01/11/21 02:15 01/11/21 02:15 Oxygen Delivery Method Room Air Weight: 245 lb 4 oz Body Mass Index (BMI) 36.8 Intake & Output: Intake and Output for Last 24 Hours 01/09/21 01/10/21 01/11/21 23:59 23:59 23:59 Intake Total 3176 / 3176 3422.25 / 3422.25 50 / 50 Output Total Balance 3176 / 3176 3412.25 / 3412.25 50 / 50 Medical Nutrition Assessment Dietitian: Nutrition Therapy Diagnosis Start: 01/06/21 14:41 Freq: Status: Active Protocol: Document 01/06/21 14:50 AG (Rec: 01/06/21 14:50 AG [id number]) Nutrition Malnutrition Evidence of Malnutrition Exists No Intake Problem Inadequate Oral Intake Etiology r/t GI dysfunction Signs/Symptoms as evidenced by PO intake meeting <50% of estimated nutritional needs x 4 days. Status Active Problem Recommendation Dietitian Recommendations/Changes Recommend advance diet as tolerated to transitional. As tolerated, recommend diet advancement to carbohydrate controlled diet. Lab / Micro Data Result Diagrams: 01/11/21 06:10 01/11/21 06:10 Labs: Laboratory Results - last 24 hr 01/10/21 11:32: POC Glucose 160 H 01/10/21 16:24: POC Glucose 144 H 01/10/21 23:44: POC Glucose 173 H 01/11/21 05:51: POC Glucose 130 H 01/11/21 06:10: WBC 8.6, RBC 4.65, Hgb 13.4, Hct 40.5, MCV 87.1, MCH 28.8, MCHC 33.1, RDW Std Deviation 38.9, RDW Coeff of Aiyana 12.2, Plt Count 211, MPV 8.5, Immature Gran % (Auto) 0.500, Neut % (Auto) 66.0, Lymph % (Auto) 18.8 L, [place] % (Auto) 11.6 H, Eos % (Auto) 2.5, Baso % (Auto) 0.6, Absolute Neuts (auto) 5.7, Absolute Lymphs (auto) 1.62, Nucleated RBC % 0 01/11/21 06:10: Sodium 137, Potassium 3.7, Chloride 103, Carbon Dioxide 30.0, Anion Gap 4 L, BUN 17, Creatinine 1.17, Estim Creat Clear Calc 60.43, Est GFR (MDRD) Af Amer 80, Est GFR (MDRD) Non-Af 66, BUN/Creatinine Ratio 14.5, Glucose 139 H, Calcium 8.5 Physical Exam Const oriented x3 and no apparent distress Resp normal respiratory effort GI normal to inspection, nondistended, normoactive bowel sounds Assessment & Plan Assessment/Plan (1) Colitis: (2) Ileus: PLAN: Patient is tolerating diet and passing flatus and had a bowel movement. He is okay to be discharged home from my standpoint. I would like him to go home on 10 days of oral antibiotics and follow-up with me in the office to schedule outpatient colonoscopy. Drake Pinon MD Pager: [facility] [address] [place] [address] [facility] [place], [address] [place] [address] Office:
--- NOTE | 2021-01-11 09:40 | CASEMGMT ---
MARIKA LUCAS NOTE: Pt screened with [facility] Palliative Care Screening Tool for strata 3, pt did not meet criteria. Emmy LYLEN RN CM
--- NOTE | 2021-01-11 09:41 | CASEMGMT ---
RN SHAYY NOTE: Pt being discharged home today. RN CM to room. Pt denies having any discharge planning/needs/concerns. Emmy LYLEN MARIKA CM
--- NOTE | 2021-01-11 10:02 | DS.PCM_ITS ---
Providers Date of Admission: 01/06/21 Primary Care Physician: Dr. Aleksandr Ramirez MD Consultations 01/06/21 12:10 Consult: General Surgery Routine Consulting Provider: Drake Pinon Reason for Consult: colitis with ileus EMERGENT Consult: No MD Notified: Yes Date Notified: 01/06/21 Time Notified: 12:10 Method of Notification: Text Reason For Visit: SIGMOID DIVERTICULITIS WITH ILEUS Diagnosis Discharge Diagnosis (1) Colitis: Status: Acute Code(s): K52.9 - Noninfective gastroenteritis and colitis, unspecified (2) Ileus: Status: Acute Code(s): K56.7 - Ileus, unspecified (3) Pancreatitis, acute: Status: Acute Code(s): K85.90 - Acute pancreatitis without necrosis or infection, unspecified Medications at Discharge Home Medications aspirin 81 mg PO DAILY 06/12/17 atorvastatin 20 mg tablet 20 mg PO QHS 07/19/17 metformin 500 mg PO DAILY 01/06/21 valsartan-hydrochlorothiazide 1 tab PO DAILY 01/06/21 ciprofloxacin HCl [Cipro] 500 mg PO BID #20 tab 01/11/21 docusate sodium 100 mg PO BID PRN #30 cap 01/11/21 metronidazole 500 mg PO Q8H #30 tab 01/11/21 Hospital Course Operations None Procedures None Summary of Care Provided Minutes Spent on Discharge: 45 Hospital Course: Patient is a 70-year-old male with a past medical history as outlined was admitted through the ED on 01/06/2021 with a complaint of abdominal pain and distention. Patient had been seen in the ED the day before for similar complaints after he started having abdominal pain mainly in the right lower quadrant and extending to the right flank. He had not had any bowel movement or passed flatus for some days prior to admission and he was having increasing abdominal distention. On his initial presentation to the ED, he was discharged home on Augmentin. However symptoms persisted and the abdominal pain and distention worsen so he came back to the ED on 01/06/2021. He denied any fever or chills or vomiting but admitted to nausea. CT of the abdomen done with contrast showed localized infection or inflammation in the sigmoid colon without bowel obstruction or abscess and fecal matter noted in the ascending colon and repeat acute abdominal series showed localized ileus of the transverse colon. He was admitted and managed for acute colitis with ileus of the transverse colon. HE was kept NPO and hydrated with IVF. General surgery was consulted. Pain was persistent and he was still not passing gas so a repeat CT of the abdomen was done which showed acute pancreatitis with peripancreatic edema but showed no evidence of intestinal obstruction. Patient gradually started passing gas and subsequently started having bowel movements on 01/10/2021. Abdominal pain resolved and distension improved. He remained stable and was discharged home on 01/11/2021. He is to follow up with his PCp and to follow up with general surgery to schedule colonoscopy on outpatient basis. He was discharged on a stool softener and on a transitional diet. Patient seen and examined prior to discharge. He had no complaints and felt well. He ws passing gas and review of systems was otherwise negative. Labs and vitals reviewed. Home medications reviewed and reconciled. Physical Exam Const alert, oriented x3 and no apparent distress General Appearance: cooperative and comfortable Exam Limitations: no limitations Nutritional Appearance: obese HEENT normocephalic, head/scalp atraumatic and moist oral mucous membranes Eyes PERRL, EOMs intact bilaterally and conjunctivae normal Neck no lymphadenopathy Resp normal respiratory effort, no retractions, no use of accessory muscles and clear to auscultation bilaterally Cardio regular rate, regular rhythm, S1 normal heart sound, S2 normal heart sound and no murmurs GI GI Narrative: abdomen minimally distended, normal bowel sounds, no tenderness Extremity normal to inspection, full ROM and no clubbing, cyanosis or edema Skin no rashes or lesions noted Neuro oriented x3, CN's II-XII intact bilaterally and moves all extremities Sensorium / Orientation: awake and alert Psych affect normal Medical Records Data Medical Nutrition Assessment Dietitian: Malnutrition Criteria Met Start: 01/06/21 14:41 Freq: Status: Active Protocol: Document 01/06/21 14:50 AG (Rec: 01/06/21 14:50 AG [id number]) Nutrition Malnutrition Evidence of Malnutrition Exists No Intake Problem Inadequate Oral Intake Etiology r/t GI dysfunction Signs/Symptoms as evidenced by PO intake meeting <50% of estimated nutritional needs x 4 days. Status Active Problem Recommendation Dietitian Recommendations/Changes Recommend advance diet as tolerated to transitional. As tolerated, recommend diet advancement to carbohydrate controlled diet. Weight / BMI Weight Weight: 245 lb 4 oz Body Mass Index (BMI) 36.8 ABG / Lab / Microbiology Data Result Diagrams: 01/11/21 06:10 01/11/21 06:10 Laboratory: Laboratory Results - last 24 hr 01/10/21 11:32: POC Glucose 160 H 01/10/21 16:24: POC Glucose 144 H 01/10/21 23:44: POC Glucose 173 H 01/11/21 05:51: POC Glucose 130 H 01/11/21 06:10: WBC 8.6, RBC 4.65, Hgb 13.4, Hct 40.5, MCV 87.1, MCH 28.8, MCHC 33.1, RDW Std Deviation 38.9, RDW Coeff of Aiyana 12.2, Plt Count 211, MPV 8.5, Immature Gran % (Auto) 0.500, Neut % (Auto) 66.0, Lymph % (Auto) 18.8 L, [place] % (Auto) 11.6 H, Eos % (Auto) 2.5, Baso % (Auto) 0.6, Absolute Neuts (auto) 5.7, A bsolute Lymphs (auto) 1.62, Nucleated RBC % 0 01/11/21 06:10: Sodium 137, Potassium 3.7, Chloride 103, Carbon Dioxide 30.0, Anion Gap 4 L, BUN 17, Creatinine 1.17, Estim Creat Clear Calc 60.43, Est GFR (MDRD) Af Amer 80, Est GFR (MDRD) Non-Af 66, BUN/Creatinine Ratio 14.5, Glucose 139 H, Calcium 8.5 D/C Instructions Discharge Diet: - (transitional diet, advance as tolerated to cardiac diet) Discharge Activity: Return to Normal Activity Weight Bearing Status: Weight bearing as tolerated Call your doctor if you observe: Fever of 101 or Higher, Inability to have a bowel movement, Shortness of breath, Swelling in the ankles, Chest pain and Uncontrolled pain Meaningful Use Info Meaningful Use Diagnoses (Choose all that apply): None applicable Discharge Plan Admission Admit Date/Time: 01/06/21 02:32 Primary Reason for Your Visit: sigmoid colitis, acute pancreatitis, ileus Attending Provider: Zoey Scott Primary Care Provider: Aleksandr Ramirez Consulting Providers: Drake Pinon Instructions Patient Instructions: Ileus, Pancreatitis Acute Dc, How the Colon Works Discharge Orders/Prescriptions Prescriptions: New ciprofloxacin HCl [Cipro] 500 mg tablet 500 mg PO BID Qty: 20 RF: 0 metronidazole 500 mg tablet 500 mg PO Q8H Qty: 30 RF: 0 docusate sodium 100 mg capsule 100 mg PO BID PRN (Reason: constipation) Qty: 30 RF: 0 Continued atorvastatin 20 mg tablet 20 mg PO QHS RF: 0 aspirin 81 MG tablet,delayed release (DR/EC) 81 mg PO DAILY RF: 0 metformin 500 MG tablet 500 mg PO DAILY RF: 0 valsartan-hydrochlorothiazide 160-25 mg tablet 1 tab PO DAILY RF: 0 Discontinued amoxicillin-pot clavulanate [Augmentin] 875-125 mg tablet 1 tab PO BID RF: 0 Referrals / Follow Up: Drake Pinon MD [STAFF PHYSICIAN] - Within 2 Weeks Aleksandr Ramirez MD [Primary Care Provider] - Within 2 Weeks Disposition Disposition (needs filled in before D/C Order can be placed): Home, Self Care Charges/Coding Visit Charges Inpatient E&M: 45596 Disch Hosp
[2021-01-11 10:07] VITALS: BP 147/73; PULSE 96; RESP 18; TEMP 36.7; O2SAT 96
[2021-01-11] MEDS: hydroCHLOROthiazide 25 MG Tablet PO (10:11)
[2021-01-11] MEDS: Losartan Potassium 50 MG Tablet PO (10:11)
[2021-01-11] MEDS: amLODIPine 5 MG Tablet PO (10:12)
--- NOTE | 2021-01-11 11:26 | PHA.DC.MC ---
Pharmacy Service has performed discharge medication reconciliation and counseling for this patient. 1. CIPROFLOXACIN 500MG PO BID X 10 DAYS 2. METRONIDAZOLE 500MG PO Q8H X 10 DAYS 3. DOCUSATE 100MG PO BID PRN CONSTIPATION The patient's discharge medication list was reviewed for discrepancies and discrepancies were resolved. Home Medications aspirin 81 mg PO DAILY 06/12/17 atorvastatin 20 mg tablet 20 mg PO QHS 07/19/17 metformin 500 mg PO DAILY 01/06/21 valsartan-hydrochlorothiazide 1 tab PO DAILY 01/06/21 ciprofloxacin HCl [Cipro] 500 mg PO BID #20 tab 01/11/21 docusate sodium 100 mg PO BID PRN #30 cap 01/11/21 metronidazole 500 mg PO Q8H #30 tab 01/11/21 The patient was counseled on the following discharge medications and changes in medications for homegoing were reviewed. The Reason for Use, instructions for use, and potential side effects were reviewed for all new medications. The patient's questions regarding all of their medications were answered. The patient was able to verbally demonstrate an understanding of their discharge medications.
--- NOTE | 2021-01-12 12:59 | CASEMGMT ---
MARIKA LUCAS Discharge Follow-up Phone Call: KYLEEWilliam: Jonathon Strata: 3 Call Date: 01/11/21 Discharge Date: 01/10/21 Time of Call: 1256 Duration: 3 min Admitting Diagnosis: sigmoid diverticulitis with ileus MARIKA LUCAS completed follow-up phone call after recent hospitalization. Patient states he is doing much better. Patient had no questions regarding discharge instructions. Patient filled prescriptions without any issues. Patient has called and scheduled follow-up appts. Patient had no further questions or concerns at this time.
== END 2021-01-11 11:39 | disposition home or self-care (01) | DRG 391 ==
LOC: ED 01-06 01:52 → MS3 01-06 02:41
PROVIDERS: Surgery; Admitting Provider Internal Medicine; Emergency Provider Emergency Medicine; PCP Family Medicine; Visit Provider Student in an Organized Health Care Education/Training Program
DX: A09 Infectious gastroenteritis and colitis, unspecified (principal); K85.90 Acute pancreatitis without necrosis or infection, unspecified; K56.7 Ileus, unspecified; K57.32 Diverticulitis of large intestine without perforation or abscess without bleeding; I10 Essential (primary) hypertension; E11.9 Type 2 diabetes mellitus without complications; E78.5 Hyperlipidemia, unspecified; E66.01 Morbid (severe) obesity due to excess calories; Z68.36 Body mass index [BMI] 36.0-36.9, adult; Z90.49 Acquired absence of other specified parts of digestive tract; Z79.82 Long term (current) use of aspirin; Z79.84 Long term (current) use of oral hypoglycemic drugs; Z79.899 Other long term (current) drug therapy; Z87.891 Personal history of nicotine dependence
CPT/HCPCS: 36415; 74022; 74176; 74177; 80048; 80076; 82962; 83690; 83735; 84100; 84478; 85025; 96374; 96375; 97802; 99251; 99284; 99285; J7030; J7040; Q9967; A4216; G0463; J2405

== ENCOUNTER 2021-01-19 18:31 | Emergency (ER) | payer MEDICARE, BC, SELFPAY ==
[2021-01-19 18:32] VITALS: PULSE 104; RESP 16; TEMP 36.4; O2SAT 97; BMI 35.6
--- NOTE | 2021-01-19 19:27 | EDS_ITS ---
HPI History of Present Illness Chief Complaint: Abd Pain Detail of Chief Complaint: Right lower back pain and pancreatitis Informant: patient and spouse/S.O. Onset/Context/Timing Onset: Weeks (1 to 2 weeks) Context: Gradual Onset Timing: Intermittent Quality: Pain Location: Right lower back Current Severity: 1/10 Maximum Severity: 8/10 Worsened by: Activity Relieved by: Rest and Tylenol helps Associated Symptoms Associated Symptoms: None Narrative Narrative: Patient is a 70-year-old male who was admitted earlier this month for colitis and treated with ciprofloxacin metronidazole. He also had evidence of pancreatitis noted on CAT scan of the abdomen pelvis dated January 07. Patient's primary care physician Dr. Ramirez who sent him to the emergency room for pancreatitis. Based on review of records he has had pancreatitis since 07 January. He denies left upper quadrant pain. He denies nausea or vomiting. He states his stool is soft. He is taking Metamucil/MiraLAX. He has not completed his course of antibiotics. He had outpatient labs performed yesterday. Those labs are remarkable for an elevation of his creatinine from 0.6-1.3. White count and H&H is unremarkable. There is slight elevation in alkaline phosphatase. He had an outpatient PET scan which reveals he still has evidence of pancreatitis and no other red masses were noted. The PET scan was performed because of the lung nodules that were noted on the CT of the abdomen pelvis with contrast. He denies weight loss. He denies night sweats. The right lower quadrant back pain is worse with activity. He denies dysuria, frequency, urgency or hematuria. There was no evidence of renal calculi on CAT scans performed earlier this month. There is no history of trauma. Prior similar symptoms: Yes Recent Illness/Hospitalization: Yes [facility] Medical History Alcohol abuse Diabetes Former smoker Hypertension Wears hearing aid in both ears Home Medications aspirin 81 mg PO DAILY 06/12/17 [History Last Taken 01/05/21 06:30] atorvastatin 20 mg tablet 20 mg PO QHS 07/19/17 [History Last Taken 01/04/21 22:00] metformin 500 mg PO DAILY 01/06/21 [History Last Taken 01/04/21 06:30] ciprofloxacin HCl [Cipro] 500 mg PO BID #20 tab 01/11/21 [Rx Last Taken Unknown] docusate sodium 100 mg PO BID PRN #30 cap 01/11/21 [Rx Last Taken Unknown] metronidazole 500 mg PO Q8H #30 tab 01/11/21 [Rx Last Taken Unknown] valsartan 320 mg PO DAILY 01/19/21 [History Last Taken Unknown] Allergy/AdvReac Type Severity Reaction Status Date / Time No Known Allergies Allergy Verified 01/19/21 18:32 Family History Father Diabetes Mother Hypertension Surgical History History of cholecystectomy S/P carpal tunnel release S/P cholecystectomy S/P hernia repair Social History (Updated 01/19/21 @ 19:[address] Lio Small MD) household members: spouse housing: house Smoking Status: Smoker, status unknown alcohol intake: current alcohol intake frequency: other substance use type: does not use ROS ROS ED Constitutional Constitutional ED: Denies chills, fever(s), subjective, sweats or weight loss Eyes Eyes: Denies blurry vision or change in vision ENT ENT ED: Denies ear pain, rhinorrhea or sore throat Cardiovascular Cardiovascular: Denies chest pain, orthopnea or palpitations Respiratory/Chest Respiratory/Chest: Denies cough, dyspnea, dyspnea on exertion or orthopnea Gastrointestinal Gastrointestinal: Denies abdominal pain, constipation, diarrhea, melena, nausea or vomiting Genitourinary Genitourinary ED: Denies dysuria, hematuria or urinary frequency Musculoskeletal Musculoskeletal: Reports back pain; Denies arthralgias, myalgias or neck pain Integumentary Denies rash Neurologic Neurologic: Denies paresthesias or weakness Endocrine Endocrinology: Denies polydipsia, polyphagia or polyuria EXAM Physical Exam Const Vital Signs: 01/19/21 18:32 Temperature 97.6 F L Temperature Source Temporal Pulse Rate 104 H Respiratory Rate 16 Pulse Ox 97 Oxygen Delivery Method Room Air Positive well nourished, well developed and obese General Appearance ED: well developed and NAD Nutritional Appearance: obese HEENT Reports TM's clear and moist mucous membranes HEENT Narrative: Head is normocephalic atraumatic. Ears normal. Nares normal. Tympanic Membrane ED: Yes TM's clear Eyes PERRL and EOMs intact bilaterally General Eye ED: Negative for pale conjunctiva or scleral icterus Neck no lymphadenopathy, supple and no JVD Chest Wall inspection of chest normal Resp normal respiratory effort and clear to auscultation bilaterally Cardio regular rate, regular rhythm, S1 normal heart sound, S2 normal heart sound and no murmurs GI normal to inspection, nondistended, normoactive bowel sounds, non-tender and non-distended Palpation: soft Back/Spine no CVA tenderness Cervical Spine: Negative for cervical spine tenderness Thoracic Spine / Upper Back: paraspinal muscle tenderness right (Right lower back); Negative for thoracic spinal tenderness Lumbar Spine / Lower Back: lumbar spinal tenderness Extremity normal to inspection General Extremety ED: Negative for tenderness Neuro oriented x3 and CN's II-XII intact bilaterally Sensorium / Orientation: alert Motor Exam: strength 5/5 throughout Psych mental status grossly normal Skin no rashes or lesions noted, no wounds and skin turgor normal MDM MDM MDM Narrative Medical decision making narrative: Patient is history and physical, hospital course and discharge summary were reviewed. His laboratory results from yesterday that were performed at the [facility] were reviewed and the res ults of the PET scan was reviewed. Patient has evidence of pancreatitis. Since he has no abdominal pain, no nausea and vomiting and no tenderness no further work-up or treatment is needed. Discharge Plan Triage Chief Complaint: Abd Pain ED Provider: Lio Small Dx/Rx/DC Orders Clinical Impression: Acute right-sided low back pain, Pancreatitis, CARLA (acute kidney injury) Instructions: ED Back Pain (Acute or Chronic), ED Pancreatitis, ED Renal Insufficiency Prescriptions: No Action atorvastatin 20 mg tablet 20 mg PO QHS RF: 0 aspirin 81 MG tablet,delayed release (DR/EC) 81 mg PO DAILY RF: 0 metformin 500 MG tablet 500 mg PO DAILY RF: 0 ciprofloxacin HCl [Cipro] 500 mg tablet 500 mg PO BID Qty: 20 RF: 0 metronidazole 500 mg tablet 500 mg PO Q8H Qty: 30 RF: 0 docusate sodium 100 mg capsule 100 mg PO BID PRN (Reason: constipation) Qty: 30 RF: 0 valsartan 320 mg tablet 320 mg PO DAILY RF: 0 Primary Care Provider: Aleksandr Ramirez Referrals: Aleksandr Ramirez MD [Primary Care Provider] - 5-7 Days (Creatinine is 1.3 and was 0.6. This may be related to the multiple contrast studies he had during his hospital course. This should be repeated in 5 to 7 days.) Disposition Disposition: Home, Self Care
== END 2021-01-19 19:52 | disposition home or self-care (01) ==
PROVIDERS: Emergency Provider Emergency Medicine; PCP Family Medicine
DX: M54.5 Low back pain (principal); K85.90 Acute pancreatitis without necrosis or infection, unspecified; N17.9 Acute kidney failure, unspecified; I10 Essential (primary) hypertension; E11.9 Type 2 diabetes mellitus without complications; F10.10 Alcohol abuse, uncomplicated; Y90.9 Presence of alcohol in blood, level not specified; Z79.82 Long term (current) use of aspirin; Z79.84 Long term (current) use of oral hypoglycemic drugs; Z79.899 Other long term (current) drug therapy; Z87.891 Personal history of nicotine dependence
CPT/HCPCS: 99282

== ENCOUNTER 2021-03-21 10:29 | Emergency (ER) | payer MEDICARE, BC, SELFPAY ==
[2021-03-21 10:30] VITALS: BP 157/82; PULSE 94; RESP 16; TEMP 35.8; O2SAT 97; BMI 38.0
--- NOTE | 2021-03-21 10:43 | RAD_ITS ---
STUDY: X-RAY - LEFT HAND REASON FOR EXAM: Male, 70 years old. injury TECHNIQUE: 3 view(s) of the hand. COMPARISON: None. FINDINGS: Normal radiocarpal articulation. Normal distal radioulnar joint. Normal visualized carpal bones. Normal carpal articulations Normal carpometacarpal articulation of the thumb. Normal second through fifth carpometacarpal joints. On the AP view only, there is a linear radiolucency through the base of the second metacarpal bone which may represent a nondisplaced fracture. Normal metacarpophalangeal joint of the thumb. Normal interphalangeal joint of the thumb. Normal proximal and distal phalanges of the thumb. Normal metacarpophalangeal joints of the second through fifth fingers. Normal proximal and distal interphalangeal joints of the second through fifth fingers. Normal phalanges of the second through fifth fingers. The soft tissue structures are unremarkable. RAD/Hand Min 3 Views IMPRESSION: Suspect nondisplaced fracture the base of the second metacarpal bone. Electronically Signed: Laron Garnica MD at 12:03 EDT Tel , Service support ,
--- NOTE | 2021-03-21 10:43 | RAD_ITS ---
STUDY: X-RAY - LEFT SHOULDER REASON FOR EXAM: Male, 70 years old. injury TECHNIQUE: 3 view(s) of the shoulder. COMPARISON: 07/19/2017 FINDINGS: Normal glenohumeral articulation. Normal acromioclavicular joint. Normal acromion. Normal humeral head and visualized proximal humerus. The soft tissue structures are unremarkable. Normal visualized pulmonary apex. RAD/Shoulder min 2 Views IMPRESSION: Normal x-ray examination of the shoulder. Electronically Signed: Laron Garnica MD at 12:04 EDT Tel , Service support ,
--- NOTE | 2021-03-21 10:45 | ED.VIS.FALL ---
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 He broke his fall with his left hand and then fell against his left shoulder. No other injuries. The majority of the issue is his shoulder, he is not able to raise it whereas he was before. Minor pain at the base of his left palm. No wrist or elbow pain. Has a history of a fatty mass on his left shoulder that is no different. He is right-hand dominant. [facility] Medical History Alcohol abuse Diabetes Former smoker Hypertension Wears hearing aid in both ears Home Medications atorvastatin 20 mg tablet 20 mg PO QHS 07/19/17 [History Last Taken 01/04/21 22:00] metformin 500 mg PO DAILY 01/06/21 [History Last Taken 01/04/21 06:30] valsartan 320 mg PO DAILY 01/19/21 [History Last Taken Unknown] hydrocodone-acetaminophen 1 tab PO Q4H PRN PRN 2 Days #10 tablet 03/21/21 [Rx Last Taken Unknown] omeprazole [Prilosec] 20 mg PO DAILY 03/21/21 [History Last Taken Unknown] Allergy/AdvReac Type Severity Reaction Status Date / Time No Known Allergies Allergy Verified 03/21/21 10:33 Family History Father Diabetes Mother Hypertension Surgical History History of cholecystectomy S/P carpal tunnel release S/P cholecystectomy S/P hernia repair Social History household members: spouse housing: house Smoking Status: Former smoker alcohol intake: current alcohol intake frequency: other substance use type: does not use ROS ROS ED Constitutional Constitutional ED: Denies chills or fever(s) Musculoskeletal Musculoskeletal: Reports extremity pain; Denies neck pain Integumentary Denies Abrasions, rash or wounds Neurologic Neurologic: Denies paresthesias or weakness EXAM Physical Exam Const Vital Signs: 03/21/21 10:30 03/21/21 10:41 Temperature 96.4 F L Temperature Source Temporal Pulse Rate 94 Respiratory Rate 16 Respiratory Effort Normal Non-Labored Respiratory Depth Normal Respiratory Pattern Normal Blood Pressure 157/82 H Blood Pressure Mean 107 Pulse Ox 97 Oxygen Delivery Method Room Air Positive well nourished and well developed General Appearance ED: well developed and NAD Neck full ROM and supple Back/Spine normal ROM and normal to inspection Extremity Extremity Narrative: No deformities. Nontender nonerythematous oblong fatty mass anterior left shoulder distorts the exam. No significant bony tenderness throughout the shoulder girdle but very limited range of motion, with significant pain on attempted abduction. Holding in neutral position of comfort. Minor tenderness at the base of the left palm but no dorsal bony hand, wrist, forearm tenderness. Full range of motion of the wrist and elbow and no elbow bony tenderness. Neuro oriented x3, no focal motor deficits and no sensory deficits noted Sensorium / Orientation: alert Psych mental status grossly normal and thought process normal Skin no wounds Rashes: no rashes MDM MDM MDM Narrative Medical decision making narrative: X-rays as below, left shoulder is unremarkable, may be a nondisplaced fracture of the base of the second metacarpal on the hand x-rays. This does correlate with where he is hurting. We will place him in a wrist splint, to help immobilize that area, although he is moving everything very well. I think close to patient follow-up warranted for both of these injuries, especially if he is not able to move his shoulder after a week of rest. Could be a traumatic bursitis, rotator injury, or simply just contused. Discussed all this with him, he was given a [place] here and a prescription for a short supply. Radiography Diagnostic Testing: Clinical Impression(s) from Imaging Studies Hand X-Ray 03/21/21 10:43 IMPRESSION: Suspect nondisplaced fracture the base of the second metacarpal bone. Electronically Signed: Laron Garnica MD at 12:03 EDT Tel , Service support , Shoulder X-Ray 03/21/21 10:43 IMPRESSION: Normal x-ray examination of the shoulder. Electronically Signed: Laron Garnica MD at 12:04 EDT Tel , Service support , Discharge Plan Triage Chief Complaint: Fall ED Provider: Jerrell Davis Dx/Rx/DC Orders Clinical Impression: Accidental fall, Injury of left shoulder, Closed nondisplaced fracture of second metacarpal bone of left hand Instructions: ED Closed Hand Fracture (Adult), ED Sling Prescriptions: New hydrocodone-acetaminophen [hydrocodone-acetaminophen] 1 TABLET tablet 1 tab PO Q4H PRN PRN (Reason: Pain) 2 Days Qty: 10 RF: 0 No Action atorvastatin 20 mg tablet 20 mg PO QHS RF: 0 metformin 500 MG tablet 500 mg PO DAILY RF: 0 valsartan 320 mg tablet 320 mg PO DAILY RF: 0 omeprazole [Prilosec] 20 mg Capsule,Delayed Release(Dr/Ec) 20 mg PO DAILY RF: 0 Primary Care Provider: Aleksandr Ramirez Referrals: Aleksandr Ramirez MD [Primary Care Provider] - Hero Kumar DO [STAFF PHYSICIAN] - 1 Week Disposition Disposition: Home, Self Care
[2021-03-21] MEDS: HYDROcodone Bitartrate/Apap 5/325 Tablet PO (11:09)
[2021-03-21 12:53] VITALS: PULSE 88; RESP 16; O2SAT 98
== END 2021-03-21 12:55 | disposition home or self-care (01) ==
PROVIDERS: Emergency Provider Emergency Medicine; PCP Family Medicine
DX: S62.341A Nondisplaced fracture of base of second metacarpal bone, left hand, initial encounter for closed fracture (principal); S49.92XA Unspecified injury of left shoulder and upper arm, initial encounter; W18.39XA Other fall on same level, initial encounter; W54.1XXA Struck by dog, initial encounter; Y93.89 Activity, other specified; Y92.89 Other specified places as the place of occurrence of the external cause; Y99.8 Other external cause status; I10 Essential (primary) hypertension; E11.9 Type 2 diabetes mellitus without complications; Z79.84 Long term (current) use of oral hypoglycemic drugs; Z79.899 Other long term (current) drug therapy; Z87.891 Personal history of nicotine dependence
CPT/HCPCS: 73030; 73130; 99284

== ENCOUNTER → 2021-04-30 | Outpatient (CLI) | payer MEDICARE, BC, SELFPAY ==
--- NOTE | 2021-04-30 | MASS_PTH ---
PATIENT: ALISSA PICHARDO [facility]: [facility] U#:[id number] AGE/SX: 70/M ROOM: RE04/30/[address]: Dr. Isaiah Mccarty MD : 1950 BED: DIS: 04/30/2021 SPEC #: [id number] RECD: 04/30/21 15:03 STATUS: SRIDEVI FELECIA #: [id number] SABA: 04/30/21 00:[address]: Isaiah Mccarty DEPT: SURGICAL PATHOLOGY RECD BY: Noel Bustos ENTERED: 05/03/21 10:40 SP TYPE: Mass OTHR DR: Dr. Aleksandr Ramirez MD [facility] Tissues: Shoulder, NOS Procedures: Surgery Specimen Level III HEADER OPERATION: Left shoulder excision lipoma PRE-OP DIAGNOSIS: Soft tissue mass left shoulder TISSUE SUBMITTED: Soft tissue mass left shoulder MICROSCOPIC DIAGNOSIS Soft tissue mass of left shoulder, excision: Mature adipose tissue consistent with lipoma. AM:heather 05/05/2021 MICROSCOPIC DESCRIPTION Slides are reviewed. GROSS DESCRIPTION Received in fixative is one container labeled with the patient's name and designated soft tissue mass left shoulder. The specimen consists of an irregular piece of adipose tissue measuring 6.5 x 4.5 x 2 cm. Sections reveal yellow adipose cut surfaces without areas of hemorrhage, necrosis or cystic degeneration. Maintainer Central Office sections are submitted in three cassettes. / SJ:heather 05/03/21 TC:1 CPT: 87750
== END | disposition home or self-care (01) ==
LOC: LABSPEC 15:13
PROVIDERS: PCP Family Medicine; Visit Provider Orthopaedic Surgery
DX: D17.79 Benign lipomatous neoplasm of other sites (principal)
CPT/HCPCS: 88304; 88305

== ENCOUNTER 2021-08-26 07:00 | Outpatient (RCR) | payer MEDICARE, BC, SELFPAY ==
--- NOTE | 2021-05-11 11:13 | HP.PTEVAL_ITS ---
Patient's Visit Information ALISSA PICHARDO is a 70 year old M referred to Physical Therapy by Dr. Isaiah Mccarty MD with a diagnosis of L strain of unspecified muscle/fascia/tendon, Sprain of L shoulder joint an. Date of Evaluation: 05/11/21 Physical Therapist: aSurabh Feldman DPT - Visit Plan Frequency: 2-3x /Week Duration: 2-4 Months Plan: Start with phase I of shoulder protocol, working on PROM. Progress HEP to home allowing increased carry over. Diane use Ice/Heat as needed. - Subjective Pt. is here today for his initial evaluation with diagnosis of L strain of unspecified muscle/fascia/tendon, Sprain of L shoulder joint and Post Traumatic OA of L shoulder. Pt. ended up having a RTC repair, sub acromial decompression, biceps debridement, and debridement of G/H joint. DOS: 04/30/21. He reports initially hurting his shoulder when he was younger, but more recently tripped over his dog and reachout with his L arm to brace his fall resulting in L shoulder injury. Pt. reports overall doing okay. He arrives with his arm in his sleeve. Pt. has some N/T in his hand, but not bad. He has been doing some exercises with his hand at home. Pt. has been sleeping in recliner with sling on, but is still having some trouble. He has been icing frequently as well. 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 He is hopeful to reduce his pain, increase his ROM and get back to all of his work and recreational activities without limitations. Pt. to return to physician on Jun 08, 2021. - Pain L shoulder Pain Intensity (Out of 10): 5 Pain Intensity Range: 3, 8 Comment: worse at night - Objective POSTURE: Pt. has L arm in guarded posture. Pt. has arm in sling without abd pillow. Pt. protects his arm in all positions. PALPATION: Pt. has tenderness throughout L shoulder. Normal healing anterior incisions without signs of infection. No redness or warmth noted. NEURO: normal sensation to light and sharp touch. normal biceps and triceps DTR. ROM: L shoulder: PROM: flexion 65deg, abd 35deg, ER 5deg. Pt. tends to guard throughout. MMT: RUE 5/5 throughout. DNT L side due to surgery. - Balance/Special Test Scores Quick DASH Score: 63.6350 - Goals Goal 1:: LTG: Pt. to be I with HEP. Goal Time Frame: 4-6 Weeks Goal 2:: STG: Pt. to sleep throughout the night with 0-2/10 pain in L shoulder. Goal Time Frame: 2-4 Weeks Goal 3:: STG: Pt. to have increased L shoulder PROM to atleast 70% of full Goal Time Frame: 2-4 Weeks Goal 4:: LTG: Pt. to have full PROM of L shoulder. Goal Time Frame: 4-6 Weeks Goal 5:: LTG: pt. to have full AROM of L shoulder. Goal Time Frame: 6-8 Weeks - Rehabilitation Potential Physical Therapy Diagnosis: Pt. has signs and symptoms consistent with L sh oulder RT repair. DOS: 04/30/21. Pt. has subsequent increase in pain, hypomobility, weakness and difficulty with ADLs. Pt. would benefit from PT to address above limitations progressing back to all work and recreational activities without limitations. Rehabilitation Potential: Excellent - Anticipated Interventions Patient/Client Instruction: Educate patient on: Condition, Plan of Care, Risk Factors, Benefits of Fitness Program For the Purpose of:: To foster healthy habits, To improve decision making, To fa cilitate caregiver knowledge, To improve self management, To prevent re-injury, To improve ability to perform tasks related to life management, To improve tolerance to ADL's Therapeutic Exercise to Include: Strength training, Power training, Body mechanics, Postural training, Flexibilty training, Passive ROM, Active ROM, Scapular Strength/Stabilization For the Purpose of:: To decrease pain, To decrease swelling/inflammation, To increase ROM, To improve nutrient delivery to tissue, To increase oxygenation perfusion, To improve muscle performance and motor function, To improve ability to perform ADL's, To increase tolerance to activity/condition/position, To improve performance and independence with ADL's, To improve health of tissue, To decrease soft tissue restriction, To increase flexibility/ROM Manual Therapy Techniques to Include: Mobilization, Passive ROM, Soft tissue mobilization For the Purpose of:: To decrease pain, To decrease swelling/inflammation, To increase ROM, To improve nutrient delivery to tissue, To increase oxygenation perfusion IF ES: Yes Cryotherapy (ice pack, ice massage): Yes Thermo therapy (hot pack): Yes For the Purpose of:: To decrease pain, To decrease swelling/inflammation, To increase ROM, To improve nutrient delivery to tissue, To increase oxygenation perfusion, To improve muscle performance and motor function Thank you for the opportunity to evaluate your patient. For Medicare and Medicare HMO plans, please review the plan of care and approve it. It will need to be FAXED BACK to us at [phone] for Medicare purposes. For Medicare only, by signing this I certify the plan of care. Please let me know if there are questions or concerns regarding this plan of care. Physician Signature: Date:
--- NOTE | 2021-06-03 08:50 | HP.PTREVAL_ITS ---
Dr. Isaiah Mccarty MD, It has been my pleasure to treat ALISSA PICHARDO over the last 7 visits for Left RTC repair, subacromial decompression, biceps/GH joint debridement. Please see the progress note below for an update on the physical therapy plan of care! Subjective: Pt. reports overall doing well. Pt. has been wearing sling as prescribed. He is still having some difficulty sleeping especially if he rolls on his side. He reports being HEP compliant. Pt. to see physician next week. Objective/Function: PROM: flexon 150deg, abd 165deg, ER at 90deg 75deg, IR at 90deg 45deg. AROM: flexion 70deg, functional IR gluteal range. Pt. is overall doing well. cont. to work on end range of motion. We can add in AAROM at this po int in time. I gave him this for HEP, but able to progress as tolerated. Plan Plan: Pt. to follow up with Physician on Monday. Possible progression to phase II. Cont. to stress end range PROM and AROM movements. Balance/Gait/Functional tests - Balance/Special Test Scores Quick DASH Score: 43.1800 Goals Goal 1:: LTG: Pt. to be I with HEP. Goal Time Frame: 4-6 Weeks Goal Progress: Progressing Goal 2:: STG: Pt. to sleep throughout the night with 0-2/10 pain in L shoulder. Goal Time Frame: 2-4 Weeks Goal Progress: Progressing Goal 3:: STG: Pt. to have increased L shoulder PROM to atleast 70% of full Goal Time Frame: 2-4 Weeks Goal Progress: Goal Met Goal 4:: LTG: Pt. to have full PROM of L shoulder. Goal Time Frame: 4-6 Weeks Goal Progress: Progressing Goal 5:: LTG: pt. to have full AROM of L shoulder. Goal Time Frame: 6-8 Weeks Goal Progress: Progressing Goal 6:: LTG: Pt. to have increased LUE strength to 4+/5 throughout. Goal Time Frame: 4-6 Weeks Anticipated Interventions Patient/Client Instruction: Educate patient on: Condition, Plan of Care, Risk Factors, Benefits of Fitness Program For the Purpose of:: To foster healthy habits, To improve decision making, To facilitate caregiver knowledge, To improve self management, To prevent re- injury, To improve ability to perform tasks related to life management, To improve tolerance to ADL's Therapeutic Exercise to Include: Strength training, Power training, Body mechanics, Postural training, Flexibilty training, Passive ROM, Active ROM, Scapular Strength/Stabilization For the Purpose of:: To decrease pain, To decrease swelling/inflammation, To increase ROM, To improve nutrient delivery to tissue, To increase oxygenation perfusion, To improve muscle performance and motor function, To improve ability to perform ADL's, To increase tolerance to activity/condition/position, To improve performance and independence with ADL's, To improve health of tissue, To decrease soft tissue restriction, To increase flexibility/ROM Manual Therapy Techniques to Include: Mobilization, Passive ROM, Soft tissue mobilization For the Purpose of:: To decrease pain, To decrease swelling/inflammation, To increase ROM, To improve nutrient delivery to tissue, To increase oxygenation perfusion IF ES: Yes Cryotherapy (ice pack, ice massage): Yes Thermo therapy (hot pack): Yes For the Purpose of:: To decrease pain, To decrease swelling/inflammation, To increase ROM, To improve nutrient delivery to tissue, To increase oxygenation perfusion, To improve muscle performance and motor function Please do not hesitate to contact me at [phone] by phone or if you have questions or concerns regarding this new plan of care! Sincerely, Saurabh Feldman DPT
--- NOTE | 2021-07-08 10:16 | HP.PTREVAL_ITS ---
Dr. Isaiah Mccarty MD, It has been my pleasure to treat ALISSA PICHARDO over the last 17 visits for Left RTC repair, subacromial decomp, biceps/GH joint debridement-DOS 04/30. Please see the progress note below for an update on the physical therapy plan of care! Subjective: Pt. is ~10 weeks out of surgery. Overall he is doing well. He is still having some difficulty with sleeping. Objective/Function: AROM: L shoulder: flexion 175deg, abd 175deg mild increase NW with repetition. Functional ER C3, functional IR L5. Pt. reports tenderness with abd. PROM of shoulder ER: 76deg at 90deg of abd, IR 40deg at 90deg of abd. MMT: LUE: flexion 4/5, abd 4-/5, ext 5/5, ER 4-/5, IR 4+/5. Patricia is doing well, but is limited with functional ER/IR motion. I want him to work on functional IR stretching with strap, sleep stretch into both ER/IR. I had him start on some light strengthening exercises, but still want him focusing on him work ROM into ER/IR. Plan Plan: Cont. with end range stretching, mostly into ER/IR. Cont. to progress AAROM with wand into abd with decreased use of assistance as tolerated. May add in light resistances strengthening as tolerated. Pt. to see physician ion 07/20/21. Balance/Gait/Functional tests - Balance/Special Test Scores Quick DASH Score: 36.3625 Goals Goal 1:: LTG: Pt. to be I with HEP. Goal Time Frame: 4-6 Weeks Goal Progress: Goal Met Goal 2:: STG: Pt. to sleep throughout the night with 0-2/10 pain in L shoulder. Goal Time Frame: 2-4 Weeks Goal Progress: Progressing Goal 3:: STG: Pt. to have increased L shoulder PROM to atleast 70% of full Goal Time Frame: 2-4 Weeks Goal Progress: Goal Met Goal 4:: LTG: Pt. to have full PROM of L shoulder. Goal Time Frame: 4-6 Weeks Goal Progress: Progressing Goal 5:: LTG: pt. to have full AROM of L shoulder. Goal Time Frame: 6-8 Weeks Goal Progress: Progressing Goal 6:: LTG: Pt. to have increased LUE strength to 4+/5 throughout. Goal Time Frame: 4-6 Weeks Goal Progress: Progressing Anticipated Interventions Patient/Client Instruction: Educate patient on: Condition, Plan of Care, Risk Factors, Benefits of Fitness Program For the Purpose of:: To foster healthy habits, To improve decision making, To facilitate caregiver knowledge, To improve self management, To prevent re- injury, To improve ability to perform tasks related to life management, To improve tolerance to ADL's Therapeutic Exercise to Include: Strength training, Power training, Body mechanics, Postural training, Flexibilty training, Passive ROM, Active ROM, Scapular Strength/Stabilization For the Purpose of:: To decrease pain, To decrease swelling/inflammation, To increase ROM, To improve nutrient delivery to tissue, To increase oxygenation perfusion, To improve muscle performance and motor function, To improve ability to perform ADL's, To increase tolerance to activity/condition/position, To improve performance and independence with ADL's, To improve health of tissue, To decrease soft tissue restriction, To increase flexibility/ROM Manual Therapy Techniques to Include: Mobilization, Passive ROM, Soft tissue mobilization For the Purpose of:: To decrease pain, To decrease swelling/inflammation, To increase ROM, To improve nutrient delivery to tissue, To increase oxygenation perfusion IF ES: Yes Cryotherapy (ice pack, ice massage): Yes Thermo therapy (hot pack): Yes For the Purpose of:: To decrease pain, To decrease swelling/inflammation, To increase ROM, To improve nutrient delivery to tissue, To increase oxygenation perfusion, To improve muscle performance and motor function Please do not hesitate to contact me at [phone] by phone or if you have questions or concerns regarding this new plan of care! Sincerely, Saurabh Feldman DPT
--- NOTE | 2021-08-03 12:14 | HP.PTREVAL_ITS ---
Dr. Isaiah Mccarty MD, It has been my pleasure to treat ALISSA PICHARDO over the last 22 visits for Left RTC repair, subacromial decomp, biceps/GH joint debridement-DOS 04/30. Please see the progress note below for an update on the physical therapy plan of care! Subjective: Pt. reports overall doing well. Pt. saw his physician who wants him to work on strengthening, but as long as he is doing well he does not need to return to physician. 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 Objective/Function: ROM: Pt. has good ROM throughout LUE, except slight loss of functional IR to L5, but is symmetrical. MMT: pt. has marked weakness in L RTC and deltoid muscle groups. LUE: shoulder: flexion 3.5#, abd 1.8#, ER 4.2#, IR 12.4#. Pt. is ~1/3 the strength of RUE in shoulder throughout. Pt. has some substitution with shoulder elevation with flexion and abduction. Plan Plan: Start phase III strengthening of both RTC and deltoid. Progress as tolerated. Balance/Gait/Functional tests - Balance/Special Test Scores Quick DASH Score: 13.6350 Goals Goal 1:: LTG: Pt. to be I with HEP. Goal Time Frame: 4-6 Weeks Goal Progress: Goal Met Goal 2:: STG: Pt. to sleep throughout the night with 0-2/10 pain in L shoulder. Goal Time Frame: 2-4 Weeks Goal Progress: Progressing Goal 3:: STG: Pt. to have increased L shoulder PROM to atleast 70% of full Goal Time Frame: 2-4 Weeks Goal Progress: Goal Met Goal 4:: LTG: Pt. to have full PROM of L shoulder. Goal Time Frame: 4-6 Weeks Goal Progress: Goal Met Goal 5:: LTG: pt. to have full AROM of L shoulder. Goal Time Frame: 6-8 Weeks Goal Progress: Progressing Goal 6:: LTG: Pt. to have increased LUE strength to 4+/5 throughout. NEW GOAL: Pt. to have increased L shoulder and RTC strength increased by 10#s throughout. Goal Time Frame: 4-6 Weeks Goal Progress: Progressing Anticipated Interventions Patient/Client Instruction: Educate patient on: Condition, Plan of Care, Risk Factors, Benefits of Fitness Program For the Purpose of:: To foster healthy habits, To improve decision making, To facilitate caregiver knowledge, To improve self management, To prevent re- injury, To improve ability to perform tasks related to life management, To improve tolerance to ADL's Therapeutic Exercise to Include: Strength training, Power training, Body mechanics, Postural training, Flexibilty training, Passive ROM, Active ROM, Scapular Strength/Stabilization For the Purpose of:: To decrease pain, To decrease swelling/inflammation, To increase ROM, To improve nutrient delivery to tissue, To increase oxygenation perfusion, To improve muscle performance and motor function, To improve ability to perform ADL's, To increase tolerance to activity/condition/position, To improve performance and independence with ADL's, To improve health of tissue, To decrease soft tissue restriction, To increase flexibility/ROM Manual Therapy Techniques to Include: Mobilization, Passive ROM, Soft tissue mobilization For the Purpose of:: To decrease pain, To decrease swelling/inflammation, To increase ROM, To improve nutrient delivery to tissue, To increase oxygenation perfusion IF ES: Yes Cryotherapy (ice pack, ice massage): Yes Thermo therapy (hot pack): Yes For the Purpose of:: To decrease pain, To decrease swelling/inflammation, To increase ROM, To improve nutrient delivery to tissue, To increase oxygenation perfusion, To improve muscle performance and motor function Please do not hesitate to contact me at [phone] by phone or if you have questions or concerns regarding this new plan of care! Sincerely, Saurabh Feldman DPT
--- NOTE | 2021-08-26 07:28 | HP.PTDCSUM ---
It has been my pleasure to treat ALISSA PICHARDO referred by Dr. Isaiah Mccarty MD, with the diagnosis of Left RTC repair, subacromial decomp, biceps/GH joint debridement-DOS 04/30 for a total of 26 visit(s). Discharge Date: 08/26/21 Please see the following information for a summary of their discharge status. Subjective: Pt. reports overall doing well. He was able to do most of his house hold activities without issues. No pain noted today. Pt. reports being 90% better overall. I am still getting stronger. He still reports a little bit of difficulty with reaching over head. Sleeping well. L shoulder Pain Intensity (Out of 10): 0 % Improvement: 90 Objective/Function: AROM: Pt. has symmetrical ROM of B shoulders. He is tigth into B functional IR, but is symmetrical. Functional IR to L5. MMT: R shoulder: flexion 15.1#, abd 13.9#, Er 13.9#, IR 17.3#. L shoulder flexion 13.8#, abd 11.1#, ER 13.1, IR 17.2#. Pt. has improved strength of his L shoulder, He is still slightly weak with abd and with flexion, but is improving. Overall he is doing well. He is sleeping without issues as well. He only reports issues with lifting heavier wt's over his head. I instructed him in some more deltoid strengthening to complete at home. He is to stick with ER/IR, mid rows, shoulder flexion and abduction exercises for HEP. Pt. consents. Goal 1:: LTG: Pt. to be I with HEP. Goal Progress: Goal Met Goal 2:: STG: Pt. to sleep throughout the night with 0-2/10 pain in L shoulder. Goal Progress: Goal Met Goal 3:: STG: Pt. to have increased L shoulder PROM to atleast 70% of full Goal Progress: Goal Met Goal 4:: LTG: Pt. to have full PROM of L shoulder. Goal Progress: Goal Met Goal 5:: LTG: pt. to have full AROM of L shoulder. Goal Progress: Goal Met Goal 6:: LTG: Pt. to have increased LUE strength to 4+/5 throughout. NEW GOAL: Pt. to have increased L shoulder and RTC strength increased by 10#s throughout. Goal Progress: Goal Met Plan: Pt. will be DC to HEP at this point in time. Discharge Comments: Pt. was treated for his L shoulder RTC repair. Pt. did very well. He has full ROM and is still progressing towards full strength. He is about 75% of his normal strength. He is to continue with strengthening I at this point in time. He consents to this plan. Pt. will be DC to his HEP at this point in time. If there are questions or concerns regarding this patient's physical therapy, please feel free to call me at [phone]. Thank you for the referral of this patient. Sincerely, Saurabh Feldman, DPT Balance/Gait/Functional tests - Balance/Special Test Scores Quick DASH Score: 4.5469
== END 2021-08-26 10:52 | disposition home or self-care (01) ==
LOC: PT 07:00
PROVIDERS: PCP Family Medicine; Referring Provider Orthopaedic Surgery; Visit Provider Orthopaedic Surgery
DX: S46.912D Strain of unspecified muscle, fascia and tendon at shoulder and upper arm level, left arm, subsequent encounter (principal); S43.402D Unspecified sprain of left shoulder joint, subsequent encounter; M19.112 Post-traumatic osteoarthritis, left shoulder
CPT/HCPCS: 97014; 97110; 97140; 97161; 97164; 97530; G0283

== ENCOUNTER 2023-02-15 07:00 | Outpatient (RCR) | payer MEDICARE, BC, SELFPAY ==
--- NOTE | 2023-01-19 08:04 | HP.PTEVAL_ITS ---
Patient's Visit Information Visit Information Visit Information: ALISSA PICHARDO is a 72 year old M referred to Physical Therapy by Dr. Isaiah Mccarty MD with a diagnosis of Right Shoulder Pain. Date of Evaluation: 01/19/23 Physical Therapist: Marcella Santos DPT Visit Plan Frequency: 2x /Week Duration: 4 Weeks Plan: Scapular Strength/Stabilization- IR range of motion HEP Given IE: Posture, Shoulder Isometrics 6 ways Subjective Subjective: Right shoulder pain- shoveling grain and caught a bolt sticking up in the floor- heard a snap- Dr. Mccarty told him he has partial tear- happened at the end of September- he has had and MRI- he sent him to PT- if this does not help then he will have an injection. He had his left shoulder RTC repair 2020 which is doing great. Right hand dominate. During the day the pain is not as bad but the night is worst. If he goes to sleep and rolls over on the shoulder it wakes him up. He has been prescribed acetaminophen for night time. Worst: 7/10 Agg: sleep, after working outside. Describes the pain as achy and throbbing. Decreased ability to lift. Average pain is a 5/10. He had carpal tunnel surgery 40 years ago so he has noticed some N/T in the hand since this has happened. Best: /10. Eases: Biofreeze, ice, medication, Acetaminophen. Sleep: disturbed- toss and turns- will wake him up. The pain is on the top of the shoulder and radiates back into the shoulder blade- radiates into the deltoid and into the elbow and tingling in the palm of the palm. No neck pain, blurred vision or dizziness. He is still pretty active. 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 PMHX: DM Meds: Metformin, Losartin, Statin, Nexium Objective Objective: Posture: Fh, RS- can correct but does not maintain- does have mild guarding of the right UE Gait: no deviation- good arm swing and trunk rotation Palpation: tender along upper trap from occiput to AC Joint, medial border of the scapula and the bicipital groove ROM: Cervical/Elbow/Wrist: WFL- mild discomfort with SB to the left AROM: WFL in all planes with pain end range abd and flexion- IR behind the back to belt line. 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 Scap: fair minus Special Tests R Shoulder Drop Sign - IS Test: Positive R Shoulder Empty Can - SS: Positive R Shoulder Belly Press - SupScap: Positive R Shoulder Neer - Impingement: Positive R Shoulder Cruz Frankie - Impingement: Positive Balance/Special Test Scores Quick DASH Score: 36.3625 Goals Goal 1:: Patient will be I with HEP and progression Goal Time Frame: 4-6 Weeks Goal 2:: Patient will maintain proper posture t/o tx session to demo increased scap s/s Goal Time Frame: 4-6 Weeks Goal 3:: Patient will demo IR to equal the left UE Goal Time Frame: 4-6 Weeks Goal 4:: Patient will report 80% improvement Goal Time Frame: 4-6 Weeks Rehabilitation Potential Physical Therapy Diagnosis: Patient presents with hypomobility- he has decreased UE pain free ROM, scapular strength/stabilization, and muscular endurance leading to poor posture and increased pain with ADL's. Rehabilitation Potential: Good Anticipated Interventions Patient/Client Instruction: Educate patient on: Benefits of Fitness Program Therapeutic Exercise to Include: Strength training, Endurance training, Coordination, Agility training, Body mechanics, Postural training, Flexibilty training, Gait and locomotor training, Neuromotor development, Passive ROM, Active ROM, Dynamic Lumbar Stabilization and Scapular Strength/Stabilization For the Purpose of:: To improve muscle performance and motor function TENS: Yes Cryotherapy (ice pack, ice massage): Yes Thermo therapy (hot pack): Yes Ultrasound (thermal/non thermal): Yes Text: Thank you for the opportunity to evaluate your patient. For Medicare and Medicare HMO plans, please review the plan of care and approve it. It will need to be FAXED BACK to us at [phone] for Medicare purposes. For Medicare only, by signing this I certify the plan of care. Please let me know if there are questions or concerns regarding this plan of care. Physician Signature:_ Date:
--- NOTE | 2023-02-15 07:53 | HP.PTDCSUM ---
Discharge Summary D/C summary: It has been my pleasure to treat ALISSA PICHARDO referred by Dr. Isaiah Mccarty MD, with the diagnosis of Right Shoulder Pain for a total of 8 visit(s). Discharge Date: Please see the following information for a summary of their discharge status. Subjective Subjective: Patient reports that he feels that he has more strength in it but more towards the end of the reps. Night is the worse- he will wake up during the night and is more restless. He has not had a cortisone injection-thinks he may get back in and see if thats an option Pain R shoulder: Pain Intensity (Out of 10): 0 Overall Improvement % Improvement: 60 Objective Objective/Function: Posture: fair throughout Gait: no deviation- good arm swing and trunk rotation Palpation: tender along medial border of the scapula ROM: Cervical/Elbow/Wrist: WFL AROM: WFL in all planes with pain end range- IR behind the back to belt line. 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 Scap: fair minus Special Tests R Shoulder Drop Sign - IS Test: Positive R Shoulder Empty Can - SS: Positive R Shoulder Belly Press - SupScap: Positive R Shoulder Neer - Impingement: Positive R Shoulder Cruz Frankie - Impingement: Positive Goals Goal 1:: Patient will be I with HEP and progression Goal Progress: Goal Met Goal 2:: Patient will maintain proper posture t/o tx session to demo increased scap s/s Goal Progress: Goal Met Goal 3:: Patient will demo IR to equal the left UE Goal Progress: Progressing Goal 4:: Patient will report 80% improvement Goal Progress: Progressing Plan Plan: 02/15/23: Discharge to [facility] with dannie paula D/C Information d/c sentence: If there are questions or concerns regarding this patient's physical therapy, please feel free to call me at [phone]. Thank you for the referral of this patient. Sincerely, Marcella Santos, DPT Balance/Gait/Functional tests Balance/Special Test Scores Quick DASH Score: 20.4525 Improvement % Improvement: 60
== END 2023-02-15 09:42 | disposition home or self-care (01) ==
LOC: PT 07:00
PROVIDERS: PCP Family Medicine; Referring Provider Orthopaedic Surgery; Visit Provider Orthopaedic Surgery
DX: S43.491D Other sprain of right shoulder joint, subsequent encounter (principal); S46.191D Other injury of muscle, fascia and tendon of long head of biceps, right arm, subsequent encounter; M25.511 Pain in right shoulder
CPT/HCPCS: 97110; 97162; 97164

== ENCOUNTER 2023-04-06 12:57 | Inpatient (IN) | payer MEDICARE, BC, SELFPAY ==
[2023-04-06] VITALS (14 sets, daily range): BP systolic 128–168; BP diastolic 73–101; PULSE 73–91; RESP 16–20; TEMP 36.2–37; O2SAT 95–100; BMI 38.9
--- NOTE | 2023-04-06 13:05 | EKG12_ITS ---
Test Reason : CP Blood Pressure : / mmHG Vent. Rate : 092 BPM Atrial Rate : 092 BPM P-R Int : 180 ms QRS Dur : 126 ms QT Int : 386 ms P-R-T Axes : 056 -43 065 degrees QTc Int : 477 ms Sinus rhythm with occasional Premature ventricular complexes Left axis deviation Non-specific intra-ventricular conduction block Minimal voltage criteria for LVH, may be normal variant ( Ervin product ) Cannot rule out Septal infarct , age undetermined Abnormal ECG Confirmed by AMINA HOWELL, ROMELIA ([id number]), city editor ELMA GABRIEL ([id number]) on 04/10/2023 8:15:39 AM Referred By: LITTLE/FLYNN Confirmed By:NAFISA HUYNH MD
[2023-04-06 13:12] LABS: Absolute Lymphocyte Count 1.73 X10^3/uL (0.83-4.51); Absolute Neutrophil Count 5.9 X10^3/uL (2.0-7.7); Basophil# 0.07 X10^3/uL; Basophil% 0.8 % (0-1); Eosinophils% 1.2 % (0-5); Hematocrit 48.8 % (40-54); Lymphocyte # 1.73 X10^3/ul (0.83-4.51); Lymphocyte % 20.1 % (19-41); Mean Corp Hgb Conc 32.8 g/dL (32-36); Mean Corpuscular Hgb 29.5 pg (27.0-32.0); Mean Corpuscular Volume 89.9 fL (80-94); Mean Platelet Vol. 9.3 fl (6.2-12.0); Monocyte# 0.74 X10^3/uL; Monocyte% 8.6 % (0-10); NRBC Flagged by Analyzer 0 % (0-5); Neutrophil # 5.92 X10^3/uL (2.7-7.7); Platelet Count 206 K/mm3 (150-450); RBC Distribution Width CV 12.4 % (11.6-14.6); RBC Distribution Width SD 40.8 fl (35.1-43.9); Red Blood Count 5.43 M/mm3 (4.6-6.2); White Blood Count 8.6 K/mm3 (4.4-11.0)
--- NOTE | 2023-04-06 13:20 | ED.VIS.CHEST ---
HPI History of Present Illness Chief Complaint: Chest Pain Narrative Narrative: 72-year-old male past medical history of diabetes, hypercholesterolemia, presents with chest pain that began earlier this morning. He states that around 4:00 he awoke and had a slight headache. He is able to take a shower. However, he developed chest pain and discomfort that was more midsternal. They were driving down to [place] and stopped at the fire station in [facility], and were evaluated by paramedics with an EKG according to the patient. They were told that it might show something at the bottom of his heart and was suggested that he be evaluated in the emergency department and turn around to drive back. Patient denies any nausea or vomiting, no shortness of breath or diaphoresis. No exacerbating or alleviating factors to his chest pressure. However, his midsternal pressure has moved more to the left. He denies any back pain or tearing sensation. No leg swelling. He states his headache has let up some but his chest pain and pressure has been more consistent. [facility] Medical History Alcohol abuse Diabetes Former smoker Hypertension Wears hearing aid in both ears Home Medications atorvastatin 20 mg tablet 20 mg PO QHS cholesterol 07/19/17 [History Last Taken 04/05/23] metformin 500 mg tablet 500 mg PO DAILY diabetes 01/06/21 [History Last Taken 04/06/23] valsartan 320 mg tablet 320 mg PO DAILY 01/19/21 [History Last Taken 04/06/23] omeprazole 20 mg capsule,delayed release 20 mg PO DAILY 03/21/21 [History Last Taken 04/06/23] Allergy/AdvReac Type Severity Reaction Status Date / Time chlorhexidine Allergy Mild HIVES Verified 04/06/23 13:05 Family History Father Diabetes Mother Hypertension Surgical History History of cholecystectomy S/P carpal tunnel release S/P cholecystectomy S/P hernia repair Social History household members: spouse housing: house Smoking Status: Former smoker alcohol intake: current alcohol intake frequency: other substance use type: does not use ROS ROS ED ROS Narrative Constitutional: No fever, no chills. HEENT: No sore throat. No neck pain. No loss of vision. No rhinorrhea. Cardiovascular: Midsternal to left-sided chest pain. No palpitations. No pedal edema. Respiratory: No cough, no shortness of breath. Abdominal: No abdominal pain. No nausea. No vomiting. Genitourinary: No dysuria. No hematuria. Musculoskeletal: No myalgias. No arthralgias. Neurologic: Positive headaches. No dizziness. No lightheadedness. Skin: No rash. No change in color. Psychiatric: No depression. No anxiety. EXAM Physical Exam Const Vital Signs: 04/06/23 12:58 04/06/23 13:01 04/06/23 13:06 Temperature 97.2 F L Temperature Source Temporal Pulse Rate 87 Respiratory Rate 20 H Respiratory Effort Normal Non-Labored Blood Pressure 166/96 H Blood Pressure Mean 119 Pulse Ox 96 97 Oxygen Delivery Method Room Air Nasal Cannula Oxygen Flow Rate (L/min) 2 04/06/23 14:05 04/06/23 14:36 04/06/23 14:41 Temperature Temperature Source Pulse Rate 88 90 87 Respiratory Rate 20 H Respiratory Effort Blood Pressure 159/89 H 167/96 H 168/101 H Blood Pressure Mean 112 Pulse Ox 96 Oxygen Delivery Method Nasal Cannula Oxygen Flow Rate (L/min) 2 04/06/23 14:45 Temperature Temperature Source Pulse Rate 88 Respiratory Rate Respiratory Effort Blood Pressure 150/89 H Blood Pressure Mean Pulse Ox Oxygen Delivery Method Oxygen Flow Rate (L/min) MDM MDM MDM Narrative Medical decision making narrative: In the differential diagnosis is ACS versus aortic dissection versus pulmonary embolism versus pneumonia versus pneumothorax. My main concern is for ACS given his history of diabetes and hypercholesterolemia. He will be given aspirin and placed on a manager monitoring. RN entered chest pain protocol. I have low suspicion for aortic dissection as he has equal pulses of the bilateral wrists, and no back pain. His history and physical does not support pneumonia or pneumothorax. I have low suspicion for pulmonary embolism as he is not tachycardic and is not hypoxic on room air. EKG was obtained and interpreted by myself independently as normal sinus rhythm at 92 bpm with PVCs but no evidence of STEMI. I reviewed his laboratory work and he has a normal white count of 8.6, hemoglobin normal at 16, hematocrit 48.8, platelet count normal at 206. INR is 1.0 with a PTT of 28.7 and normal. D-dimer is elevated at 0.86, above the age limit for this 72-year-old male. CTA of the chest, abdomen, and pelvis was obtained to help rule out dissection or PE although this is still low on the differential. In review of his BNP, he has a normal creatinine of 1.22, glucose appropriately elevated at 119 with anion gap low at 2. I do not have suspicion for diabetic ketoacidosis. His initial high-sensitivity troponin is elevated at 111. Patient will be started on a heparin drip and will be given nitroglycerin for stuttering symptoms. I discussed patient with Dr. Messer and Dr. Dow for admission. Of note, I did read discussed the patient with Dr. Messer as the patient produced EKGs that were done at noon in [facility]. Cardiology did evaluate them and compare them to the EKG that was done here, and he agrees that this is still a non-STEMI because the ST elevation was not persistent in the inferior leads. However, given his stuttering symptoms, after CTA was obtained, he was taken to the catheterization lab. Patient will still be admitted to the PCU after cardiac catheterization. Additionally, Dr. Dow is aware of the CTA that is pending and can check the results. Once again, I have low suspicion for pulmonary embolism as he was not tachycardic or hypoxic, and low suspicion for aortic dissection as he was not having back pain and had equal pulses. Patient was admitted in stable condition. History & Record Review Discussion w/independent historian: Patient Additional record(s) reviewed:: Prior ED visit Lab Data Attestation: I reviewed the patient's lab results. Labs: Laboratory Results - last 24 hr 04/06/23 04/06/23 13:03 13:05 WBC 8.6 RBC 5.43 Hgb 16.0 Hct 48.8 MCV 89.9 MCH 29.5 MCHC 32.8 RDW Std Deviation 40.8 RDW Coeff of Aiyana 12.4 Plt Count 206 MPV 9.3 Immature Gran % (Auto) 0.300 Neut % (Auto) 69.0 Lymph % (Auto) 20.1 Elliott % (Auto) 8.6 Eos % (Auto) 1.2 Baso % (Auto) 0.8 Absolute Neuts (auto) 5.9 Absolute Lymphs (auto) 1.73 Nucleated RBC % 0 PT 13.0 INR 1.0 APTT 28.7 D-Dimer Quant (PE/DVT) 0.86 H* Sodium 140 Potassium 3.9 Chloride 108 H Carbon Dioxide 30.0 Anion Gap 2 L BUN 16 Creatinine 1.22 Estim Creat Clear Calc 54.51 Est GFR (MDRD) Af Amer 75 Est GFR (MDRD) Non-Af 62 BUN/Creatinine Ratio 13.1 Glucose 119 H Calcium 9.0 Troponin I High Sens 111 H Radiography Diagnostic Testing: Clinical Impression(s) from Imaging Studies Chest X-Ray 04/06/23 13:21 IMPRESSION: Cardiomegaly. The lungs are clear. Electronically Signed: Jamie Santos MD at 13:57 EST , Discharge Plan Disposition Disposition: Acute Care Hospital [facility] Discharge Date/Time: 04/06/23 15:14
--- NOTE | 2023-04-06 13:21 | RAD_ITS ---
STUDY: X-RAY CHEST REASON FOR EXAM: Male, 72 years old. Chest pain TECHNIQUE: Single AP portable view of the chest. COMPARISON: None. FINDINGS: EKG electrodes are seen. The lungs are clear and expanded. There is no demonstrated pleural abnormality. There is mild cardiac enlargement. Normal mediastinum and shirin. Normal visualized pulmonary arteries. Normal visualized aortic arch and descending thoracic aorta. Normal visualized thoracic spine. Normal visualized ribs, clavicles, and shoulders. There is no demonstrated abnormality of the visualized soft tissue structures of the upper abdomen. RAD/Chest 1 View (Portable) IMPRESSION: Cardiomegaly. The lungs are clear. Electronically Signed: Jamie Santos MD at 13:57 EST ,
[2023-04-06 13:32] LABS: Anion Gap 2 (5-15); BUN 16 mg/dL (7-18); BUN/Creat Ratio 13.1 RATIO (10-20); Chloride 108 mmol/L (98-107); Creatinine, Serum 1.22 mg/dL (0.70-1.30); EST Glomerular Filtration Rate 62 mL/min (>60); Est Glom Filt Rate - Afr Amer 75 mL/min (>60); Estimated Creatinine Clearance 54.51 ml/min; Glucose 119 mg/dL (74-106); Potassium 3.9 mmol/L (3.5-5.1); Sodium Level 140 mmol/L (136-145); Troponin-I HS (w/2H Reflex) 111 pg/mL (3.0-78.0)
[2023-04-06] MEDS: Aspirin 81 MG TAB.CHEW 324 MG PO (13:33)
[2023-04-06 13:53] LABS: D-Dimer Quantitative (DVT/PE) 0.86 FEU/ug/m (0.27-0.49)
--- NOTE | 2023-04-06 14:28 | HP.PCM.HOS_ITS ---
HPI - General General Date of Admission: 04/06/23 HPI Narrative ALISSA PICHARDO, is a 72 M who presents to the hospital with headaches and chest pain. 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 At that point he and his started driving down towards [place] because of the persistent chest pain they went to a fire station where they did an EKG that showed some inferior ST changes, the initial twelve-lead EKG looked okay other than a left axis deviation however a repeat EKG on leads II, III and aVF showed what appeared to be ST elevations that were still present on an EKG done a minute and a half later. They sent him up here to the ER where an EKG on arrival did not show significant ST changes in the inferior leads. During this time the chest pain has waxed and waned in intensity and has migrated more over to his left side and is now up into his jaw. D-dimer is elevated and initially a CTA of the chest was again to be done however given the evaluation of the EKGs cardiology is going to take for heart cath this afternoon. [facility] Medical History Alcohol abuse Diabetes Former smoker Hypertension Wears hearing aid in both ears Home Medications atorvastatin 20 mg tablet 20 mg PO QHS cholesterol 07/19/17 [History Last Taken 04/05/23] metformin 500 mg tablet 500 mg PO DAILY diabetes 01/06/21 [History Last Taken 04/06/23] valsartan 320 mg tablet 320 mg PO DAILY 01/19/21 [History Last Taken 04/06/23] omeprazole 20 mg capsule,delayed release 20 mg PO DAILY 03/21/21 [History Last Taken 04/06/23] Allergy/AdvReac Type Severity Reaction Status Date / Time chlorhexidine Allergy Mild HIVES Verified 04/06/23 13:05 Family History Father Diabetes Mother Hypertension Surgical History History of cholecystectomy S/P carpal tunnel release S/P cholecystectomy S/P hernia repair Social History household members: spouse housing: house Smoking Status: Former smoker alcohol intake: current alcohol intake frequency: other substance use type: does not use ROS Constitutional Constitutional: Denies chills, fatigue, fever(s) or malaise Eyes Eyes: Denies blurry vision ENT HEENT: Denies headache(s) or nasal discharge Cardiovascular Cardiovascular: Reports chest pain; Denies dyspnea on exertion or syncope Respiratory/Chest Respiratory/Chest: Denies cough, shortness of breath at rest or shortness of breath with exertion Gastrointestinal Gastrointestinal: Denies constipation, diarrhea, nausea or vomiting Genitourinary Genitourinary: Denies dysuria Neurologic Neurologic: Reports headache(s); Denies focal weakness, numbness or tremor(s) Psychiatric Psychiatric: Denies anxiety or depression Vital Signs Vital Signs Vital Signs: 04/06/23 12:58 04/06/23 13:01 04/06/23 13:06 Temperature 97.2 F L Temperature Source Temporal Pulse Rate 87 Respiratory Rate 20 H Respiratory Effort Normal Non-Labored Blood Pressure 166/96 H Blood Pressure Mean 119 Pulse Ox 96 97 Oxygen Delivery Method Room Air Nasal Cannula Oxygen Flow Rate (L/min) 2 04/06/23 14:05 Temperature Temperature Source Pulse Rate 88 Respiratory Rate 20 H Respiratory Effort Blood Pressure 159/89 H Blood Pressure Mean 112 Pulse Ox 96 Oxygen Delivery Method Nasal Cannula Oxygen Flow Rate (L/min) 2 Weight Weight: 256 lb 9.889 oz Body Mass Index (BMI) 38.9 Physical Exam Narrative General: Alert, Oriented x3, Cooperative, No apparent distress HEENT: Atraumatic, PERRLA, EOMI, Normocephalic Oral: Moist Mucosa Neck: Supple, No JVD Lungs: Diminished, Normal air movement, No rhonchi, No wheeze, No rales Cardiovascular: Regular rate, Regular Rhythm, Normal S1, Normal S2, No murmurs Abdomen: Soft, Non Tender, Non-Distended, No Hepato-splenomegaly Extremities: No edema, Capillary Refill Less than 3 Seconds Skin: No rashes, No breakdown Musculoskeletal: No Tenderness to Palpation of Joints or Extremities Neurological: Cranial nerves II-XII grossly intact, Motor Exam 5/5 strength throughout, Sensory exam intact to light touch and pain Psych/Mental Status: Normal Affect, Appropriate Results Lab / Micro Data 04/06/23 13:03 11/09/23 13:03 Labs: Laboratory Results - last 24 hr 04/06/23 13:03: WBC 8.6, RBC 5.43, Hgb 16.0, Hct 48.8, MCV 89.9, MCH 29.5, MCHC 32.8, RDW Std Deviation 40.8, RDW Coeff of Aiyana 12.4, Plt Count 206, MPV 9.3, Immature Gran % (Auto) 0.300, Neut % (Auto) 69.0, Lymph % (Auto) 20.1, [place] % (Auto) 8.6, Eos % (Auto) 1.2, Baso % (Auto) 0.8, Absolute Neuts (auto) 5.9, Abso lute Lymphs (auto) 1.73, Nucleated RBC % 0, Sodium 140, Potassium 3.9, Chloride 108 H, Carbon Dioxide 30.0, Anion Gap 2 L, BUN 16, Creatinine 1.22, Estim Creat Clear Calc 54.51, Est GFR (MDRD) Af Amer 75, Est GFR (MDRD) Non-Af 62, BUN/Creatinine Ratio 13.1, Glucose 119 H, Calcium 9.0, Troponin I High Sens 111 H 04/06/23 13:05: D-Dimer Quant (PE/DVT) 0.86 H* Radiology Impression Chest X-Ray 04/06/23 13:21 IMPRESSION: Cardiomegaly. The lungs are clear. Electronically Signed: Jamie Santos MD at 13:57 EST , Assessment & Plan Assessment/Plan (1) STEMI (ST elevation myocardial infarction): PLAN: Plan 1. STEMI/HTN/HLD ?Based on the EKG done at the fire station during his episode of chest pain it does appear that he had an inferior KS. Repeat EKG in the ER does not show a STEMI however given the slightly elevated troponin to 111 plan for heart cath today given the continued chest pain and the questions over the EKGs ? We will continue with his home Lipitor and valsartan ? He does have an elevated D-dimer so if the cardiac cath is normal and will need to proceed tomorrow with a CTA of his chest to evaluate for PE ? We will continue with the heparin drip 2. DM 2 ? We will hold his metformin ? Sliding scale insulin ? Accu-Cheks ACHS ? We will monitor make adjustments as necessary 3. GERD ? Stable ? Continue with PPI DVT: Heparin drip Charges/Coding Visit Charges Inpatient E&M: 59951 Init Hosp L3
[2023-04-06] MEDS: Nitroglycerin SL (ED/IMG/CATH) 0.4 MG TABLET SL ×3 (14:36→14:45)
[2023-04-06] MEDS: Heparin Injection (Vial) 5,000 UNIT/ML VIAL 4000 UNIT IV (14:39)
[2023-04-06 14:48] LABS: Partial Thromboplast Time 28.7 Seconds (24.1-36.2)
--- NOTE | 2023-04-06 15:02 | CT_ITS ---
STUDY: CT CHEST, ABDOMEN T PELVIS WITH CONTRAST REASON FOR EXAM: Male, 72 years old. Elevated D dimer RADIATION DOSAGE (If Supplied By Facility): CTDIvol = ( 22.26 ) mGy, DLP = ( 2293.15 ) mGycm TECHNIQUE: Transaxial imaging was performed following intravenous administration of IV 100mL Isovue-300. Individualized dose optimization techniques were used for this CT. COMPARISON: Comparison is made with prior CT scan done on pelvis dated January 07, 2021. FINDINGS: CHEST Minimal increased markings at the lung bases suggestive of atelectasis. There is no demonstrated pleural abnormality. No evidence of pulmonary embolism. Coronary artery calcification. Normal mediastinum. Normal hilar regions. Normal unenhanced pulmonary arteries. Normal aorta arch and descending thoracic aorta. There are multi-level degenerative changes of the thoracic spine. ABDOMEN There is decreased attenuation of the liver consistent with steatosis. The patient is status post cholecystectomy. Normal spleen. Normal pancreas. There is a 3.1 cm x 4.2 cm fat-containing nodule in the right adrenal gland. This is essentially unchanged. Normal right kidney. Normal left kidney. There is a small hiatal hernia. Normal small intestine. There are multiple colonic diverticula consistent with diverticulosis. The appendix is visualized and appears normal. Normal abdominal aorta. Normal inferior vena cava. Normal retroperitoneum. Normal abdominal wall. There are degenerative changes of the visualized lumbar spine. PELVIS Normal urinary bladder. Prostatic calcifications. There is no pelvic fluid. There is no pelvic lymphadenopathy or mass lesion. Normal visualized pelvic arteries. CT/CT Chest, Abd, Pel w/Contrast IMPRESSION: No evidence of pulmonary embolism. Mild degree of bibasilar atelectasis. Fatty infiltration of the liver. Stable fat-containing nodule in the right adrenal gland. Electronically Signed: Jamie Snatos MD at 15:27 EST ,
--- NOTE | 2023-04-06 15:04 | ED.RN ---
DR HUYNH WANTS PT TO GO TO [facility] WHEN CT IS DONE. ALSO STATED [facility] WILL HANG THE HEPARIN AND FOR US NOT TO DO IT
[2023-04-06 15:09] LABS: Reflex Troponin-HS? (from REC) Y
--- NOTE | 2023-04-06 16:45 | EKG12_ITS ---
Test Reason : AM EKG Blood Pressure : / mmHG Vent. Rate : 075 BPM Atrial Rate : 075 BPM P-R Int : 186 ms QRS Dur : 126 ms QT Int : 410 ms P-R-T Axes : 043 -44 055 degrees QTc Int : 457 ms Normal sinus rhythm Left axis deviation Non-specific intra-ventricular conduction block Minimal voltage criteria for LVH, may be normal variant ( [place] product ) Cannot rule out Septal infarct , age undetermined Abnormal ECG When compared with ECG of 06-APR-2023 18:47, MANUAL COMPARISON REQUIRED, DATA IS UNCONFIRMED Confirmed by AMINA HOWELL, ROMELIA ([id number]), newspaper managing editor ANGELO JHAVERI ([id number]) on 04/10/2023 10:56:32 AM Referred By: Confirmed By:NAFISA HUYNH MD
--- NOTE | 2023-04-06 16:46 | PCM.CONS.C ---
Assessment & Plan Assessment/Plan (1) Non-STEMI (non-ST elevated myocardial infarction): PLAN: Treated with drug-eluting stent to the OM1. Patient will require staged PCI of the LAD. Check 2D echo. We will keep the patient on aspirin, Brilinta, statin, beta-maico. HPI Consult Data Date of Consult: 04/06/23 HPI Narrative Reason for Consultation: Non-STEMI HPI Narrative: ALISSA PICHARDO, is a 72 M who presents with chest pain. EKG done by outside fire department showed inferior ST elevation. Patient was advised to go to the emergency room. In the emergency room the EKG did not show ST elevation. However because of on and off chest pain he was brought to the cardiac [facility] and underwent coronary angiography which revealed 100% occlusion of OM1 that was treated with thrombectomy and drug-eluting stent placement. He does have residual 80% stenosis in the LAD that will be treated in a staged manner. Patient is chest pain-free currently. Review of systems: All systems reviewed. All system negative except in HPI. ON LICENSE OF [facility] Medical History Alcohol abuse Diabetes Former smoker Hypertension Wears hearing aid in both ears Home Medications atorvastatin 20 mg tablet 20 mg PO QHS cholesterol 07/19/17 [History Last Taken 04/05/23] metformin 500 mg tablet 500 mg PO DAILY diabetes 01/06/21 [History Last Taken 04/06/23] valsartan 320 mg tablet 320 mg PO DAILY 01/19/21 [History Last Taken 04/06/23] omeprazole 20 mg capsule,delayed release 20 mg PO DAILY 03/21/21 [History Last Taken 04/06/23] Allergy/AdvReac Type Severity Reaction Status Date / Time chlorhexidine Allergy Mild HIVES Verified 04/06/23 13:05 Family History Father Diabetes Mother Hypertension Surgical History History of cholecystectomy S/P carpal tunnel release S/P cholecystectomy S/P hernia repair Social History household members: spouse housing: house Smoking Status: Former smoker alcohol intake: current alcohol intake frequency: other substance use type: does not use Physical Exam Const alert and oriented x3 HEENT normocephalic Eyes no scleral icterus Resp normal respiratory effort Cardio regular rate Psych mental status grossly normal Risk Stratification Risk Stratification Applicable: No Charges/Coding Visit Charges Inpatient E&M: 41603 Init Hosp L2 Objective Data Vital Signs: Vital Signs Temp Pulse Resp BP Pulse Ox O2 Del Method O2 Flow Rate 97.1 F L 81 16 128/73 H 95 Nasal Cannula 2 04/06/23 15:09 04/06/23 15:09 04/06/23 15:09 04/06/23 15:09 04/06/23 15:09 04/06/23 14:05 04/06/23 14:05 Oxygen Flow Rate (L/min) 2 Oxygen Delivery Method Nasal Cannula Weight: 256 lb 9.889 oz Body Mass Index (BMI) 38.9 Lab / Micro Data 04/06/23 13:03 04/06/23 13:03 Labs: Laboratory Results - last 24 hr 04/06/23 13:03: WBC 8.6, RBC 5.43, Hgb 16.0, Hct 48.8, MCV 89.9, MCH 29.5, MCHC 32.8, RDW Std Deviation 40.8, RDW Coeff of Aiyana 12.4, Plt Count 206, MPV 9.3, Immature Gran % (Auto) 0.300, Neut % (Auto) 69.0, Lymph % (Auto) 20.1, [place] % (Auto) 8.6, Eos % (Auto) 1.2, Baso % (Auto) 0.8, Absolute Neuts (auto) 5.9, Absolute Lymphs (auto) 1.73, Nucleated RBC % 0, Sodium 140, Potassium 3.9, Chloride 108 H, Carbon Dioxide 30.0, Anion Gap 2 L, BUN 16, Creatinine 1.22, Estim Creat Clear Calc 54.51, Est GFR (MDRD) Af Amer 75, Est GFR (MDRD) Non-Af 62, BUN/Creatinine Ratio 13.1, Glucose 119 H, Calcium 9.0, Troponin I High Sens 111 H 04/06/23 13:05: PT 13.0, INR 1.0, APTT 28.7, D-Dimer Quant (PE/DVT) 0.86 H* Cardiology Labs/Tests 04/06/23 13:03: WBC 8.6, RBC 5.43, Hgb 16.0, Hct 48.8, MCV 89.9, MCH 29.5, MCHC 32.8, Plt Count 206, MPV 9.3, Immature Gran % (Auto) 0.300, Neut % (Auto) 69.0, Lymph % (Auto) 20.1, Stephens % (Auto) 8.6, Eos % (Auto) 1.2, Baso % (Auto) 0.8, Absolute Neuts (auto) 5.9, Nucleated RBC % 0, Sodium 140, Potassium 3.9, Chloride 108 H, Carbon Dioxide 30.0, Anion Gap 2 L, BUN 16, Creatinine 1.22, Est GFR (MDRD) Af Amer 75, Est GFR (MDRD) Non-Af 62, BUN/Creatinine Ratio 13.1, Glucose 119 H, Calcium 9.0 04/06/23 13:05: PT 13.0, INR 1.0, APTT 28.7, D-Dimer Quant (PE/DVT) 0.86 H* Rhythm: EKG: ECHO: Stress Test: Cardiac Cath: PCI: CT Surgery: Holter monitor: EPS: PPM: CXR: Chest CT Scan: Radiography Diagnostic Testing: Radiology Impression Chest X-Ray 04/06/23 13:21 IMPRESSION: Cardiomegaly. The lungs are clear. Electronically Signed: Jamie Santos MD at 13:57 EST , Chest/Abdomen/Pelvis CT 04/06/23 15:02 IMPRESSION: No evidence of pulmonary embolism. Mild degree of bibasilar atelectasis. Fatty infiltration of the liver. Stable fat-containing nodule in the right adrenal gland. Electronically Signed: Jamie Santos MD at 15:27 EST ,
[2023-04-06] MEDS: 0.9% Normal Saline (1000mL) 1,000 ML 75 ML IV (17:00)
--- NOTE | 2023-04-06 18:42 | EKG12_ITS ---
Test Reason : CP Blood Pressure : / mmHG Vent. Rate : 090 BPM Atrial Rate : 090 BPM P-R Int : 198 ms QRS Dur : 124 ms QT Int : 392 ms P-R-T Axes : 048 -48 038 degrees QTc Int : 479 ms Normal sinus rhythm Left anterior fascicular block Minimal voltage criteria for LVH, may be normal variant ( [place] product ) Septal infarct , age undetermined Abnormal ECG When compared with ECG of 06-APR-2023 17:20, MANUAL COMPARISON REQUIRED, DATA IS UNCONFIRMED Confirmed by AMINA HOWELL, ROMELIA ([id number]), subeditor ANGELO JHAVERI ([id number]) on 04/10/2023 10:56:56 AM Referred By: DR SUAREZ Confirmed By:NAFISA HUYNH MD
[2023-04-06] MEDS: Potassium Chloride Oral Tablet 20 MEQ 40 MEQ PO (19:22)
[2023-04-06] MEDS: Furosemide 20 MG/2 ML VIAL IV (19:23)
[2023-04-06] MEDS: Atorvastatin Calcium 20 MG Tablet PO (21:27)
[2023-04-06] MEDS: TICAGRELOR 90 MG TABLET PO (21:27)
[2023-04-06] MEDS: Carvedilol 6.25 MG Tablet PO (21:27)
[2023-04-06] MEDS: Insulin Lispro 100 UNIT/ML INSULN.PEN SC (21:31)
[2023-04-06 22:43] LABS: Bedside Glucose 218 mg/dL (74-106)
[2023-04-06 22:56] LABS: Anion Gap 3 (5-15); BUN 17 mg/dL (7-18); BUN/Creat Ratio 13.7 RATIO (10-20); Calcium,Total 8.4 mg/dL (8.5-10.1); Chloride 107 mmol/L (98-107); Creatinine, Serum 1.24 mg/dL (0.70-1.30); EST Glomerular Filtration Rate 61 mL/min (>60); Est Glom Filt Rate - Afr Amer 74 mL/min (>60); Estimated Creatinine Clearance 53.63 ml/min; Glucose 195 mg/dL (74-106); Potassium 3.8 mmol/L (3.5-5.1); Sodium Level 137 mmol/L (136-145)
[2023-04-07] MEDS: Magnesium Sulfate 1 GM in Dextrose 5%-Water (100mL Bag) 100 ML IV ×2 (00:08→05:36)
[2023-04-07 02:56] VITALS: BP 153/91; PULSE 81; RESP 16; TEMP 36.1; O2SAT 97
[2023-04-07 04:18] LABS: Absolute Lymphocyte Count 1.59 X10^3/uL (0.83-4.51); Absolute Neutrophil Count 8.2 X10^3/uL (2.0-7.7); Basophil# 0.05 X10^3/uL; Basophil% 0.4 % (0-1); Eosinophil# 0.12 X10^3/uL; Eosinophils% 1.1 % (0-5); Hematocrit 46.4 % (40-54); Hemoglobin 15.7 g/dL (13.0-16.5); Lymphocyte # 1.59 X10^3/ul (0.83-4.51); Lymphocyte % 14.3 % (19-41); Mean Corp Hgb Conc 33.8 g/dL (32-36); Mean Corpuscular Hgb 30.2 pg (27.0-32.0); Mean Corpuscular Volume 89.2 fL (80-94); Mean Platelet Vol. 9.4 fl (6.2-12.0); Monocyte# 1.17 X10^3/uL; Monocyte% 10.5 % (0-10); NRBC Flagged by Analyzer 0 % (0-5); Neutrophil # 8.16 X10^3/uL (2.7-7.7); Neutrophil % 73.3 % (47-70); Platelet Count 217 K/mm3 (150-450); RBC Distribution Width CV 12.6 % (11.6-14.6); White Blood Count 11.1 K/mm3 (4.4-11.0)
[2023-04-07 04:35] VITALS: BP 157/84; PULSE 80; RESP 20; TEMP 36.7; O2SAT 100
[2023-04-07 04:56] LABS: Magnesium 2.2 mg/dL (1.6-2.6)
[2023-04-07] MEDS: Furosemide 20 MG/2 ML VIAL IV (05:35)
[2023-04-07 05:42] LABS: ALB/GLOB Ratio 0.9 RATIO (0.9-2.4); AST(SGOT) 394 U/L (15-37); Alanine Aminotransfer ALT/SGPT 85 U/L (16-61); Albumin, Serum 3.2 g/dL (3.2-5.0); Alkaline Phosphatase 137 U/L (45-117); Anion Gap 5 (5-15); BUN 15 mg/dL (7-18); BUN/Creat Ratio 12.7 RATIO (10-20); Calcium,Total 8.5 mg/dL (8.5-10.1); Chloride 106 mmol/L (98-107); Creatinine, Serum 1.18 mg/dL (0.70-1.30); EST Glomerular Filtration Rate 65 mL/min (>60); Est Glom Filt Rate - Afr Amer 78 mL/min (>60); Estimated Creatinine Clearance 56.36 ml/min; Globulin 3.7 g/dL (2.2-4.2); Glucose 157 mg/dL (74-106); Potassium 3.9 mmol/L (3.5-5.1); Protein, Total 6.9 g/dL (6.4-8.2); Sodium Level 138 mmol/L (136-145); Troponin-I HS > 125000 pg/mL (3.0-78.0)
--- NOTE | 2023-04-07 06:58 | CRPHASE1 ---
Patient Communication Patient Information Former Patient:: Phase I PHII Cardiac Rehab Discussed with Patient:: Yes Guide to Cardiac Rehab Given to Patient:: Yes Cardiac Rehab Facility Choice List Given to Patient:: Yes Communication to Cardiac Rehab Aboriginal Liaison Officer:: Indu Messer Orientation Date:: 04/06/23 Sessions:: 36 sessions - 3 days/wk, 12 weeks Cardiac Rehabilitation Info Program Information Cardiac Rehabilitation Program Information: Cardiac Rehab The cardiac rehab team at [facility] consists of highly skilled exercise physiologists, nurses, respiratory therapists and physicians working together with you. Our purpose is to help you have a full recovery and achieve the goals you set for yourself. Over the years many of our patients have returned to activities they assumed they would never do again! We can help restore your confidence and motivation to make lifestyle changes that can have a significant impact on your health and quality of life! We can help answer questions and concerns you may have about exercise, lifestyle, medications, diet, stress and anxiety which are common following a hospitalization. WE monitor ECG and vital signs during exercise and discuss your progress with you and report to your physician(s). Cardiac Rehab is proven to help reduce readmissions, improve functional capacity and lower recurrence of problems with your heart. Our Cardiac Rehab program is Certified by the [place] [employer] Pulmonary [employer] (AACVPR) and Accredited by the [place] [employer] through our [facility]. You can contact us at . We invite you to call us with your questions or to get started in our program. If you have other questions or concerns be sure to ask your physician/provider during your follow-up visit. WE look forward to seeing you!
--- NOTE | 2023-04-07 07:01 | CRPH1.INST_ITS ---
General Education Discussed with Patient CAD and cardiac anatomy and function:: Patient communicates acknowledgment Explanation of diagnoses and procedures:: Patient communicates acknowledgment Sign/Symptoms of CT:: Patient communicates acknowledgment Antiplatelet therapy: Patient communicates acknowledgment Proper use of NTG-SL: Patient communicates acknowledgment Emergency procedures and activation of EMS: Patient communicates acknowledgment Compliance of all prescribed medications: Patient communicates acknowledgment Smoking Risk Factors Patient Nicotine/Smoking Risk Factors Are:: Second-hand smoke Recommendations Recommendations Include:: Smoking cessation strategies/Smoking packet Response Code Nicotine/Smoking Response Code:: Patient communicates acknowledgment Dyslipidemia Risk Factors Patient Dyslipidemia Risk Factors Are:: Total Cholesterol, Triglycerides, HDL and LDL Recommendations Recommendations Include:: Lipid profile not available, Reviewed NCEP/ATP guidelines and Therapeutic Lifestyle Change dietary guidelines Response Code Dyslipidemia Response Code:: Patient communicates acknowledgment Overweight/Obesity Risk Factors Patient Overweight/Obesity Risk Factors Are:: Obesity - > or = 30 Recommendations Recommendations Include:: Weight loss of 5-10%, Reduced calorie diet and Exer cise 5-7 times/week Response Code Overweight/Obesity:: Patient communicates acknowledgment Hypertension Recommendations Recommendations Include:: DASH dietary guidelines, Decrease/maintain normal body weight and Moderation of ETOH Response Code Hypertension:: Patient communicates acknowledgment Heart Disease Risk Factors Patient Heart Disease Risk Factors Are:: Family history of heart disease < 65 years old Recommendations Recommendations Include:: Educated family members of their risk and Educated family members of importance of prevention of heart disease Response Code Heart Disease Response Code:: Patient communicates acknowledgment Diabetes Risk Factors Patient Diabetes Risk Factors Are:: Elevated blood sugars and Post-op hyperglycemia Recommendations Recommendations Include:: Maintain fasting blood sugars 70-110 md/dL, Maintain HgbA1c of 6% or less, Monitor blood sugar as prescribed, Diabetic dietary guidelines and Decrease/maintain body weight Response Code Diabetes:: Patient communicates acknowledgment Metabolic Syndrome Risk Factors Patient Metabolic Syndrome Risk Factors Are [3 of 5]:: Fasting blood sugar > 100 mg/dL, Waist circumference > 35 [female] or 40 [male], High triglyceride >150, Hypertension and Low HDL <40 [male] or < 50 [female] Recommendations Recommendations Include:: Reinforce compliance to risk factor modifications and Encouraged follow-up with Primary Care Physician Response Code Metabolic Syndrome Response Code:: Patient communicates acknowledgment Sedentary Risk Factors Patient Sedentary Risk Factors Are:: Lack of regular exercise Recommendations Recommendations Include:: Aerobic exercise 5-7 times/week for 20-30 minutes continuously, Benefits of regular exercise, Discussed home walking program and Monitored Outpatient Cardiac Rehab Response Code Sedentary Response Code:: Patient communicates acknowledgment Stress Recommendations Recommendations Include:: Identification of stressors, and assessment of coping skills and Stress management techniques Response Code Stress Response Code:: Patient communicates acknowledgment
[2023-04-07 07:47] LABS: Bedside Glucose 178 mg/dL (74-106)
[2023-04-07 08:21] VITALS: O2SAT 96
[2023-04-07 09:17] VITALS: BP 143/92; PULSE 84; RESP 18; TEMP 36.6; O2SAT 97
[2023-04-07] MEDS: Pantoprazole Sodium 20 MG Tablet PO (09:20)
[2023-04-07] MEDS: Aspirin E.C. 81 MG Tablet PO (09:20)
[2023-04-07] MEDS: Carvedilol 6.25 MG Tablet PO ×2 (09:20→21:56)
[2023-04-07] MEDS: Losartan Potassium 100 MG Tablet PO (09:20)
[2023-04-07] MEDS: TICAGRELOR 90 MG TABLET PO ×2 (09:20→21:56)
--- NOTE | 2023-04-07 09:55 | CASEMGMT ---
RN CM Face to Face with patient for initial transition planning/care coordination assessment. RN CM introduced self and role at [facility]. Patient lying in bed, alert and oriented, at bedside. Patient willing to participate in assessment and is able to answer all questions appropriately. Care providers, pharmacy, and demographics verified. Patient wishes to discharge home, denies need for home health at this time. Patient states he has no further needs or concerns at this time. CM to follow for discharge planning needs that may arise. PCP: James Specialists: Mehul corporate safety manager Preferred Pharmacy: [facility], [facility] at discharge. Insurance: [employer] Prescription Benefit: yes Living Will/HPOA: yes, Tatianna Larsen LNOK: Living Arrangements: Patient lives with in a single story home with 2 steps and railing. Patient is independent at home. Transportation: self, DME/HHC: Patient has shower chair, raised toilet, cane, walker at home. Will monitor for home oxygen, prefers [employer] for DME. No previous HHC or SNF. Disposition Plan: Patient to discharge home with family support and follow-up plans in place. Airam BROOKS, RN, CM
--- NOTE | 2023-04-07 10:00 | EKG12_ITS ---
Test Reason : POST PCI Blood Pressure : / mmHG Vent. Rate : 080 BPM Atrial Rate : 080 BPM P-R Int : 198 ms QRS Dur : 122 ms QT Int : 408 ms P-R-T Axes : 050 -42 029 degrees QTc Int : 470 ms Sinus rhythm with occasional Premature ventricular complexes Left axis deviation Minimal voltage criteria for LVH, may be normal variant ( Ervin product ) Septal infarct , age undetermined Abnormal ECG When compared with ECG of 06-APR-2023 13:00, MANUAL COMPARISON REQUIRED, DATA IS UNCONFIRMED Confirmed by AMINA HOWELL, ROMELIA ([id number]), editor & co founder ANGELO JHAVERI ([id number]) on 04/10/2023 10:57:41 AM Referred By: AMINA Confirmed By:NAFISA HUYNH MD
[2023-04-07 11:39] LABS: Bedside Glucose 145 mg/dL (74-106)
[2023-04-07 15:28] VITALS: BP 125/75; PULSE 87; RESP 18; TEMP 36.6; O2SAT 99
--- NOTE | 2023-04-07 16:05 | PCM.PN.HOSP ---
Reason for Visit Reason for Visit: Diagnoses ST elevation (STEMI) myocardial infarction of unspecified site (04/06/23) Non-ST elevation (NSTEMI) myocardial infarction (04/06/23) Subjective Subjective Patient was seen and examined today, I talked briefly with cardiology about his care. Patient complained of some shortness of breath today but his pulse ox was 97% on room air. Objective Data Objective Data Vital Signs: Vital Signs Temp Pulse Resp BP Pulse Ox O2 Del Method O2 Flow Rate 97.8 F 87 18 125/75 H 99 Room Air 2 04/07/23 15:28 04/07/23 15:28 04/07/23 15:28 04/07/23 15:28 04/07/23 15:28 04/07/23 15:28 04/07/23 09:17 Oxygen Flow Rate (L/min) 2 Oxygen Delivery Method Room Air Weight: 116.4 kg Body Mass Index (BMI) 38.9 Intake & Output: Intake and Output for Last 24 Hours 04/05/23 04/06/23 04/07/23 23:59 23:59 23:59 Intake Total 150 / 150 654 / 654 Output Total 1300 / 1300 Balance -1150 / -1150 654 / 654 Lab / Micro Data 04/07/23 04:00 04/07/23 04:00 Labs: Laboratory Results - last 24 hr 04/06/23 21:25: POC Glucose 218 H 04/06/23 22:10: Sodium 137, Potassium 3.8, Chloride 107, Carbon Dioxide 27.0, Anion Gap 3 L, BUN 17, Creatinine 1.24, Estim Creat Clear Calc 53.63, Est GFR (MDRD) Af Amer 74, Est GFR (MDRD) Non-Af 61, BUN/Creatinine Ratio 13.7, Glucose 195 H, Calcium 8.4 L 04/07/23 04:00: WBC 11.1 H, RBC 5.20, Hgb 15.7, Hct 46.4, MCV 89.2, MCH 30.2, MCHC 33.8, RDW Std Deviation 41.0, RDW Coeff of Aiyana 12.6, Plt Count 217, MPV 9.4, Immature Gran % (Auto) 0.400, Neut % (Auto) 73.3 H, Lymph % (Auto) 14.3 L, Dougherty % (Auto) 10.5 H, Eos % (Auto) 1.1, Baso % (Auto) 0.4, Absolute Neuts (auto) 8.2 H, Absolute Lymphs (auto) 1.59, Nucleated RBC % 0, Sodium 138, Potassium 3.9, Chloride 106, Carbon Dioxide 27.0, Anion Gap 5, BUN 15, Creatinine 1.18, Estim Creat Clear Calc 56.36, Est GFR (MDRD) Af Amer 78, Est GFR (MDRD) Non-Af 65, BUN/Creatinine Ratio 12.7, Glucose 157 H, Calcium 8.5, Magnesium 2.2, Total Bilirubin 0.80, AST 394 H, ALT 85 H, Alkaline Phosphatase 137 H, Troponin I High Sens > 437430 H*, Total Protein 6.9, Albumin 3.2, Globulin 3.7, Albumin/Globulin Ratio 0.9 04/07/23 06:50: POC Glucose 178 H 04/07/23 11:14: POC Glucose 145 H Physical Exam Const alert, oriented x3, no apparent distress, average body habitus and healthy appearing General Appearance: cooperative, well kempt and well developed Orientation / Consciousness: awake, oriented to person, oriented to place and oriented to time HEENT normocephalic, head/scalp atraumatic and moist oral mucous membranes Eyes PERRL, EOMs intact bilaterally and conjunctivae normal Neck supple, no JVD, thyroid normal and no carotid bruits General: trachea midline Resp normal respiratory effort, no retractions, no use of accessory muscles and clear to auscultation bilaterally Auscultation: Negative for rales, rhonchi or wheezes Cardio regular rate, regular rhythm, S1 normal heart sound, S2 normal heart sound, no murmurs, no rub and no gallops GI normal to inspection, nondistended, normoactive bowel sounds, soft to palpation, non-tender and non-distended Extremity no clubbing, cyanosis or edema Skin no rashes or lesions noted General Skin Exam: no breakdown Neuro oriented x3, CN's II-XII intact bilaterally, moves all extremities, no focal motor deficits and no sensory deficits noted Sensorium / Orientation: awake, alert, oriented to person, oriented to place and oriented to time Speech: speech normal Psych affect normal Assessment & Plan Assessment/Plan (1) Non-STEMI (non-ST elevated myocardial infarction): PLAN: Plan 1. Cvv-[id number]-[id number] will remain on his present medications with adjustment per cardiology #2 type 2 diabetes-patient's blood sugar will be monitored, sliding scale insulin will be administered as needed #3 GERD-patient was on a PPI #4 essential hypertension-patient is on valsartan, blood pressure will be monitored STEMI was ruled out Total clinical time spent by myself addressing the patient's medical issues, reviewing all of his data, and collaborating with patient's care team: 25 minutes Charges/Coding Visit Charges Inpatient E&M: 44909 Subs Hosp L1
--- NOTE | 2023-04-07 16:13 | ECHOCS_ITS ---
Reason For Study: s/p RI Procedure This was a 2D Doppler, Color Flow transthoracic echocardiogram. Contrast injection was performed. Exam performed portable in patient room. Left Ventricle Normal LV size. The estimated ejection fraction is 45 %. No evidence for diastolic dysfunction. Right Ventricle Normal RV size. Normal systolic function. Atria Normal left atrium. Normal right atrium. No doppler evidence for ASD. Mitral Valve There is moderate mitral annular calcification. There is no mitral valve stenosis. Mild-Moderate (1- 2+) mitral valve insufficiency. Tricuspid Valve There is no tricuspid stenosis. Trivial tricuspid valve insufficiency. Unable to estimate RV systolic pressure due to insufficient tricuspid regurgitant envelope. Aortic Valve Trisinus/trileaflet aortic valve. Aortic sclerosis, no stenosis. Trivial aortic valve insufficiency. Pulmonic Valve There is no pulmonic valvular stenosis. Trivial pulmonic valve insufficiency. Great Vessels Normal aortic root. Pericardium/Pleural No pericardial effusion. Medication Diluted definity 2ml given slow IV push to enhance endocardial definition. MMode/2D Measurements & Calculations LVIDd: 5.4 cm IVSd: 1.1 cm Ao root diam: 3.7 cm LVIDs: 3.9 cm LVPWd: 1.3 cm RVDd: 3.6 cm FS: 27.7 % LAV(MOD-bp): 48.4 ml LVAd ap4: 42.0 cm2 LVAd ap2: 37.5 cm2 LAV(MOD-bp) Indexed: 21.3 ml/m2 LVLd ap4: 8.0 cm LVLd ap2: 7.7 cm LAV(MOD-sp2): 46.0 ml EDV(MOD-sp4): 182.4 ml EDV(MOD-sp2): 153.4 ml LAV(MOD-sp4): 49.3 ml EDV(sp4-el): 185.9 ml EDV(sp2-el): 154.6 ml LVAs ap4: 31.8 cm2 LVAs ap2: 28.1 cm2 LVLs ap4: 7.2 cm LVLs ap2: 6.4 cm ESV(MOD-sp4): 116.4 ml ESV(MOD-sp2): 100.9 ml ESV(sp4-el): 119.7 ml ESV(sp2-el): 105.7 ml EF(MOD-sp4): 36.2 % EF(MOD-sp2): 34.2 % EF(sp4-el): 35.6 % SV(MOD-sp4): 66.0 ml SV(MOD-sp2): 52.5 ml SV(sp4-el): 66.2 ml LA A4 area: 17.4 cm2 LA dimension(2D): 4.1 cm RA A4 area: 9.0 cm2 TAPSE: 2.3 cm Time Measurements MV dec time: 0.14 sec Doppler Measurements & Calculations MV E max jac: 58.0 cm/sec Lat Peak E' Jac: 5.5 cm/sec Med Peak E' Jac: 5.4 cm/sec MV A max jac: 93.0 cm/sec E/E' lat: 10.6 E/E' med: 10.8 MV E/A: 0.62 Ao V2 max: 161.4 cm/sec LV V1 max: 102.2 cm/sec MV dec slope: 426.4 cm/sec2 Ao max P.4 mmHg LV V1 max P.2 mmHg Ao V2 mean: 117.4 cm/sec LV V1 mean P.8 mmHg Ao mean P.2 mmHg LV V1 mean: 81.4 cm/sec Ao V2 VTI: 30.6 cm LV V1 VTI: 20.9 cm AV (velocity ratio): 0.68 PA V2 max: 115.9 cm/sec PI end-d jac: 140.2 cm/sec ECHO/Echo Complete W/ Contrast Interpretation Summary There is a moderate sized inferior, posterior, and lateral wall motion abnormal ity with hypokinesis of the segments. The estimated ejection fraction is 45 %. No evidence for diastolic dysfunction. Mild-Moderate (1-2+) mitral valve insufficiency. Trivial aortic valve insufficiency. Ordering Physician: Dion Sabillon Referring Physician: Ortiz Redman Performed By: Aixa Leon, SUPRIYA, RVT
[2023-04-07 17:18] LABS: Bedside Glucose 131 mg/dL (74-106)
[2023-04-07 21:25] VITALS: BP 127/73; PULSE 79; RESP 16; TEMP 36.6; O2SAT 96
[2023-04-07] MEDS: Atorvastatin Calcium 20 MG Tablet PO (21:55)
[2023-04-07] MEDS: Insulin Lispro 100 UNIT/ML INSULN.PEN SC (21:59)
[2023-04-07 22:20] LABS: Bedside Glucose 180 mg/dL (74-106)
[2023-04-08 03:21] VITALS: BP 125/78; PULSE 77; RESP 16; TEMP 36.6; O2SAT 97
[2023-04-08 07:16] LABS: Bedside Glucose 146 mg/dL (74-106)
[2023-04-08 08:27] VITALS: BP 141/87; PULSE 78; RESP 18; TEMP 36.8; O2SAT 99
[2023-04-08] MEDS: Carvedilol 6.25 MG Tablet PO (08:33)
[2023-04-08] MEDS: TICAGRELOR 90 MG TABLET PO (08:33)
[2023-04-08] MEDS: Pantoprazole Sodium 20 MG Tablet PO (08:33)
[2023-04-08] MEDS: Losartan Potassium 100 MG Tablet PO (08:33)
[2023-04-08] MEDS: Aspirin E.C. 81 MG Tablet PO (08:33)
--- NOTE | 2023-04-08 09:06 | PCM.DC ---
Discharge Instructions Diet Discharge Diet: 1800 Calorie Control Diet Activity Discharge Activity: Return to Normal Activity Weight Bearing Status: Full weight bearing Follow Up Care Test Results: Test results from this visit will be discussed in further detail at your follow-up appointment, if applicable. Discharge Plan Admission Admit Date/Time: 04/06/23 15:00 Primary Reason for Your Visit: Non STEMI Attending Provider: Dion Sabillon Primary Care Provider: Aleksandr Ramirez Consulting Providers: Indu Messer; Jf Dow Discharge Orders/Prescriptions Prescriptions: New carvedilol 6.25 mg Tablet 6.25 mg PO BID Qty: 60 0RF aspirin 81 mg Tablet,Delayed Release (Dr/Ec) 81 mg PO DAILY@0800 Qty: 1 0RF Brilinta 90 mg Tablet 90 mg PO BID Qty: 60 0RF Continued valsartan 320 mg tablet 320 mg PO DAILY omeprazole 20 mg Capsule,Delayed Release(Dr/Ec) 20 mg PO DAILY metformin 500 MG tablet 500 mg PO DAILY Qty: 1 0RF Rx Instructions: start on 04/09/23 Changed atorvastatin 20 mg tablet 40 mg PO QHS Qty: 1 0RF Referrals / Follow Up: Aleksandr Ramirez MD [Primary Care Provider] - See Referral Note (as scheduled) Albin Leon NP, EMISSION TECHNICIAN-C [Med Staff - [facility] Practice Prof] - 05/02/23 2:30 am Disposition Disposition (needs filled in before D/C Order can be placed): Home, Self Care
--- NOTE | 2023-04-08 09:24 | DS.PCM_ITS ---
Providers Date of Admission: 04/06/23 Date of Discharge: 04/08/23 Primary Care Physician: Dr. Aleksandr Ramirez MD Consultations 04/06/23 16:46 Consult: Cardiology Routine Consulting Provider: Indu Messer Reason for Consult: NSTEMI EMERGENT Consult: No MD Notified: Yes Date Notified: 04/06/23 Time Notified: 15:12 Method of Notification: ED Physician Initiated Reason For Visit: NSTEMI Diagnosis Discharge Diagnosis (1) Non-STEMI (non-ST elevated myocardial infarction): Status: Acute Code(s): I21.4 - Non-ST elevation (NSTEMI) myocardial infarction Plan 1. Non-STEMI with occlusive coronary disease in the obtuse marginal 1 branch and LAD-patient will remain on his present medications with adjustment per cardiology #2 type 2 diabetes-patient's blood sugar will be monitored, sliding scale insulin will be administered as needed #3 GERD-patient was on a PPI #4 essential hypertension-patient is on valsartan, blood pressure will be bell tored STEMI was ruled out Total clinical time spent by myself addressing the patient's medical issues, reviewing all of his data, and collaborating with patient's care team: 25 minutes Medications at Discharge Home Medications valsartan 320 mg tablet 320 mg PO DAILY 01/19/21 omeprazole 20 mg capsule,delayed release 20 mg PO DAILY 03/21/21 aspirin 81 mg tablet,delayed release 81 mg PO DAILY@0800 #1 TAB 04/08/23 atorvastatin 20 mg tablet 40 mg (2 x 20 mg) PO QHS cholesterol #1 TAB 04/08/23 carvedilol 6.25 mg tablet 6.25 mg PO BID #60 tabs 04/08/23 metformin 500 mg tablet 500 mg PO DAILY diabetes #1 TAB 04/08/23 ticagrelor 90 mg tablet (Brilinta) 90 mg PO BID #60 tabs 04/08/23 Hospital Course Operations None Procedures 2-D Echocardiogram and Cardiac catheterization (With YUKI placement obtuse marginal 1 branch) Summary of Care Provided Minutes Spent on Discharge: 31 Hospital Course: This 72-year-old white male was seen in the emergency room at [facility] after being sent in for evaluation of chest pain, he had gone to a fire station in the [facility] and was evaluated by paramedics, it was suggested that he go to an emergency room due to changes in his EKG. In the emergency room here, an EKG was obtained which showed a normal sinus rhythm but no evidence of a STEMI, CBC showed a normal white blood cell count and hemoglobin, D-dimer was elevated at 0.86, CTA of the chest abdomen and pelvis was obtained which was unremarkable for thrombus. Troponin was elevated at 111. Case was discussed with cardiology and they reviewed the EKGs that were done in [facility], cardiology did not feel it was a STEMI due to the lack of persistence of ST elevation in the inferior leads, it was agreed that the patient should go to the [facility] however and after his CTA of his chest was obtained, he was taken to the [facility] and had a YUKI inserted in the obtuse marginal 1 branch, there was also an 80% stenosis in the LAD that will be t reated in a staged manner. Patient was admitted to PCU, his meds were adjusted by cardiology, and he underwent an echocardiogram which showed an EF of 45%. On 04/08/2023, patient was seen and examined: On examination he appeared in good health and spirits. Vital signs as documented. Skin warm and dry and without overt rashes. Neck without JVD, neck was supple, trachea midline, thyroid was normal. Lungs clear bilaterally, normal air movement was noted. Heart exam notable for regular rhythm, normal sounds and absence of murmurs, rubs or gallops. Abdomen unremarkable and without evidence of organomegaly, masses, or abdominal aortic enlargement. Bowel sounds are present, abdomen is not disten ded. Extremities nonedematous, no cyanosis was noted, no clubbing was noted. Neuro: Cranial nerves II through XII are grossly intact, no focal motor deficits were noted, sensation to light touch and pinprick intact, motor exam 5/5 throughout. Psych: Patient is alert and oriented x3, he does not appear anxious or depressed, he does not appear agitated. Patient was discharged in stable condition on 04/08/2023 Weight / BMI Weight Weight: 116.4 kg Body Mass Index (BMI) 38.9 ABG / Lab / Microbiology Data 04/07/23 04:00 04/07/23 04:00 Laboratory: Laboratory Results - last 24 hr 04/07/23 11:14: POC Glucose 145 H 04/07/23 16:28: POC Glucose 131 H 04/07/23 21:58: POC Glucose 180 H 04/08/23 06:33: POC Glucose 146 H D/C Instructions Discharge Diet: 1800 Calorie Control Diet Weight Bearing Status: Full weight bearing Meaningful Use Info Meaningful Use Diagnoses (Choose all that apply): AMI AMI/Post PCI/Angioplasty Aspirin given w/in 24hrs of arrival?: Yes ASA at discharge?: Yes Antiplatelet Therapy at Discharge:: Yes Statins at discharge?: Yes Aydin/ARB at discharge?: Yes Beta Darrel at discharge?: Yes Done w/ Acute [place] measure.: Yes Documented LVEF (%): 45 Discharge Plan Admission Admit Date/Time: 04/06/23 15:00 Primary Reason for Your Visit: Non STEMI Attending Provider: Dion Sabillon Primary Care Provider: Aleksandr Ramirez Consulting Providers: Indu Messer; Jf Dow Discharge Orders/Prescriptions Prescriptions: New carvedilol 6.25 mg Tablet 6.25 mg PO BID Qty: 60 0RF aspirin 81 mg Tablet,Delayed Release (Dr/Ec) 81 mg PO DAILY@0800 Qty: 1 0RF Brilinta 90 mg Tablet 90 mg PO BID Qty: 60 0RF Continued valsartan 320 mg tablet 320 mg PO DAILY omeprazole 20 mg Capsule,Delayed Release(Dr/Ec) 20 mg PO DAILY metformin 500 MG tablet 500 mg PO DAILY Qty: 1 0RF Rx Instructions: start on 04/09/23 Changed atorvastatin 20 mg tablet 40 mg PO QHS Qty: 1 0RF Referrals / Follow Up: Aleksandr Ramirez MD [Primary Care Provider] - See Referral Note (as scheduled) Albin Leon NP, BASKET HAND WEAVER-C [Med Staff - Adv Practice Prof] - 05/02/23 2:30 am Disposition Disposition (needs filled in before D/C Order can be placed): Home, Self Care Charges/Coding Visit Charges Inpatient E&M: 34111 Disch Hosp >30min
--- NOTE | 2023-04-08 10:00 | EKG12_ITS ---
Test Reason : AM EKG Blood Pressure : / mmHG Vent. Rate : 076 BPM Atrial Rate : 076 BPM P-R Int : 182 ms QRS Dur : 128 ms QT Int : 420 ms P-R-T Axes : 049 -47 082 degrees QTc Int : 472 ms Normal sinus rhythm Left axis deviation Non-specific intra-ventricular conduction block Minimal voltage criteria for LVH, may be normal variant ( Ervin product ) Cannot rule out Septal infarct , age undetermined Abnormal ECG When compared with ECG of 07-APR-2023 05:17, MANUAL COMPARISON REQUIRED, DATA IS UNCONFIRMED Confirmed by RADHA HOWELL, DANIEL ([id number]), staff editor ANGELO JHAVERI ([id number]) on 04/19/2023 12:50:01 PM Referred By: Confirmed By:DANIEL GARCIA MD
[2023-04-08 11:06] VITALS: O2SAT 97; O2SAT 98
[2023-04-09 00:46] LABS: ACT Activated Clotting Time 233 sec (74-137)
--- NOTE | 2023-04-26 12:49 | CL.I_ITS ---
Patient Name: ALISSA PICHARDO Study Date: 04/06/2023 Performing: Emma Messer MD Ht: 68 inches 172.72 cm : 1950 Wt: 257 lbs 116.4 kg Age: 72 Gender: male BSA: 2.27 PROCEDURE(S) PERFORMED DC02-(40240)LHC/COR IC12-(91829/C9600)YUKI W/WO PTCA, SINGLE CORONARY ARTERY CLINICAL PROFILE AND CO-MORBIDITIES Heart Failure: None CAD Presentations: Non-STEMI. Symptom onset Date/Time: Time Not Available CONCLUSIONS CAD as described. Successful YUKI to pOM1 as described. RECOMMENDATIONS Pt. should return for staged PCI of LAD in 4-6 weeks DESCRIPTION OF PROCEDURE The patient arrived to the procedure lab. The risks and benefits of the procedure as well as a full description of our services here and lack of surgical backup were fully explained to the patient and/or their significant other prior to the catheterization. The Timeout was completed, verifying the correct patient and procedure. The patient's procedural site was prepped and draped in the usual fashion. Local anesthetic was given subcutaneously to right radial region with Lidocaine 2%. Using a modified Seldinger technique, arterial access was obtained via the right radial artery, a 6Fr sheath was inserted.. Left Coronary Artery selective angiography was performed in multiple views using a 5 Fr. 4.0 [place] catheter. LV to AO pullback pressures were then recorded. Right Coronary Artery selective angiography was then performed in multiple views using a 5 Fr. JR 4 catheterThe images were reviewed and options discussed. A decision was then made to proceed with an Intervention, IVUS or other adjunct procedure. XB 3.0 Guide catheter was inserted and engaged into the LCA. Priority One inserted Pass # 1 BMW Guide wire was advanced to the 1st OM. Priority One Removed Angiogram performed post priority one Angiogram performed post priority one Emerge 2.50x12 Balloon catheter was inserted. PTCA balloon inflated at 8 atms for 10 secs. PTCA balloon inflated at 8 atms for 5 secs. Angiogram performed post balloon dilatation. Elma Pettis 2.75x26 Drug Eluting stent was inserted. Angiogram performed post stent deployment. The arterial sheath was pulled and a TR Band was applied for hemostasis w/ 11ml air CORONARY ANGIOGRAPHY DOMINANCE: Right Dominant LEFT MAIN: Mild luminal irregularities LEFT ANTERIOR DESCENDING ARTERY: PROX LAD: 80 % Stenosis CIRCUMFLEX ARTERY: Mild luminal irregularities OM 1: Proximal - is occluded RIGHT CORONARY ARTERY: Mild luminal irregularities INTERVENTION INFORMATION LESION SITE: 1st OM (Proximal) Lesion Complexity: High/C, chronic total occlusion: No, lesion at bifurcation: No, thrombus present: Yes, lesion length: 20 mm, culprit lesion: Yes Pre Stenosis: 100 % Pre intervention FRANCISCO flow: 0 PROCEDURE: Thrombectomy, Drug Eluting Stent with pre dilatation. Post Stenosis: 0 % Post intervention FRANCISCO flow: 3 Lesion Devices: Cordis 6 Fr XB3.0 100cm Guide Catheter Lai .014 190cm BMW [place] Straight Terumo Priority One Aspiration Catheter Gray Sci EMERGE MR 2.50x12 BALLOON Medtronic 2.75 x 26 PRINCESS FRONTIER YUKI COMPLICATIONS No Complications PROCEDURE MEDICATIONS Versed 1 mg IV Fentanyl 50 mcg IV Oxygen: 2L/min via nasal cannula Brilinta 180 mg PO @ 04/06/2023 16:10:41 Heparin given IA 04/06/2023 15:48:05 Heparin 1000 unit(s) IV 04/06/2023 16:19:40 Nitro 200 mcg IC 04/06/2023 16:27:05 Verapamil 2.5mg, Ntg 100mcgs, 3000 units of Heparin given IA 04/06/2023 15:48:05 SUMMARY OF HEMODYNAMIC DATA Time AIR REST ECG 15:31:22 AO 111/64 (85) SA 15:50:13 LV 133/12, 26 16:05:42 LV 130/10, 26 16:05:50 LVp 137/9, 29 16:05:58 AOp 128/69 (94) 16:06:05 Signed By Emma Messer MD On 04/26/2023 12:48:30 Emma Messer MD
== END 2023-04-08 11:31 | disposition home or self-care (01) | DRG 322 ==
LOC: ED 15:09 → PCU 15:28
PROVIDERS: Internal Medicine; Specialist; Admitting Provider Family Medicine; Emergency Provider Emergency Medicine; PCP Family Medicine; Visit Provider Internal Medicine
DX: I21.4 Non-ST elevation (NSTEMI) myocardial infarction (principal); E11.9 Type 2 diabetes mellitus without complications; I10 Essential (primary) hypertension; K21.9 Gastro-esophageal reflux disease without esophagitis; E78.00 Pure hypercholesterolemia, unspecified; I25.10 Atherosclerotic heart disease of native coronary artery without angina pectoris; Z79.82 Long term (current) use of aspirin; Z79.84 Long term (current) use of oral hypoglycemic drugs; Z79.899 Other long term (current) drug therapy; Z87.891 Personal history of nicotine dependence
CPT/HCPCS: 36415; 71045; 71260; 74177; 80048; 80053; 82962; 83735; 84484; 85025; 85347; 85379; 85610; 85730; 92928; 93005; 93306; 93454; 97802; 99152; 99153; 99285; C1757; J7030; Q9957; Q9967; A4216; C1725; C1769; C1874; C1887; C1894; C8929; C9600; J1327; J1940

== ENCOUNTER → 2023-05-02 | Outpatient (CLI) | payer MEDICARE, BC, SELFPAY ==
[2023-05-02 15:52] LABS: Absolute Lymphocyte Count 1.74 X10^3/uL (0.83-4.51); Absolute Neutrophil Count 3.5 X10^3/uL (2.0-7.7); Basophil# 0.06 X10^3/uL; Eosinophil# 0.21 X10^3/uL; Eosinophils% 3.4 % (0-5); Hematocrit 44.5 % (40-54); Hemoglobin 15.1 g/dL (13.0-16.5); Lymphocyte # 1.74 X10^3/ul (0.83-4.51); Lymphocyte % 27.8 % (19-41); Mean Corp Hgb Conc 33.9 g/dL (32-36); Mean Corpuscular Hgb 30.6 pg (27.0-32.0); Mean Corpuscular Volume 90.1 fL (80-94); Mean Platelet Vol. 9.5 fl (6.2-12.0); Monocyte# 0.72 X10^3/uL; Monocyte% 11.5 % (0-10); NRBC Flagged by Analyzer 0 % (0-5); Neutrophil # 3.51 X10^3/uL (2.7-7.7); Platelet Count 173 K/mm3 (150-450); RBC Distribution Width CV 12.6 % (11.6-14.6); RBC Distribution Width SD 41.4 fl (35.1-43.9); Red Blood Count 4.94 M/mm3 (4.6-6.2); White Blood Count 6.3 K/mm3 (4.4-11.0)
[2023-05-02 16:05] LABS: Anion Gap 2 (5-15); BUN 18 mg/dL (7-18); BUN/Creat Ratio 14.8 RATIO (10-20); Calcium,Total 8.9 mg/dL (8.5-10.1); Chloride 111 mmol/L (98-107); Creatinine, Serum 1.22 mg/dL (0.70-1.30); EST Glomerular Filtration Rate 62 mL/min (>60); Est Glom Filt Rate - Afr Amer 75 mL/min (>60); Glucose 121 mg/dL (74-106); Potassium 4.2 mmol/L (3.5-5.1); Sodium Level 140 mmol/L (136-145)
== END | disposition home or self-care (01) ==
LOC: LAB 15:26
PROVIDERS: PCP Family Medicine; Referring Provider Nurse Practitioner Family; Visit Provider Nurse Practitioner Family
DX: E78.2 Mixed hyperlipidemia (principal); Z95.5 Presence of coronary angioplasty implant and graft
CPT/HCPCS: 36415; 80048; 85025

== ENCOUNTER 2023-05-11 15:56 | Observation (INO) | payer MEDICARE, BC, SELFPAY ==
[2023-05-10 07:04] VITALS: BMI 38.2
[2023-05-11] VITALS (8 sets, daily range): BP systolic 131–155; BP diastolic 66–85; PULSE 69–81; RESP 16–18; TEMP 36.6–36.7; O2SAT 94–97; BMI 35.5
--- NOTE | 2023-05-11 10:33 | CRPHASE1_ITS ---
Patient Communication Patient Information Former Patient:: Phase I PHII Cardiac Rehab Discussed with Patient:: Yes Guide to Cardiac Rehab Given to Patient:: Yes Cardiac Rehab Facility Choice List Given to Patient:: Yes Communication to Cardiac Rehab Choice Program [facility] CR PHII:: Communication Given to CR and Refer to [facility] Choice Program Other:: Communication Given to CR Field Marketing Representative:: Indu Messer Phase II Cardiac Rehab:: Yes Orientation Date:: 05/11/23 Post Discharge Choice Letter Given to Patient:: Yes Medical/Surgical History Medical History CAD:: Yes Congestive Heart Failure: Dyslipidemia:: Yes CVA/TIA: Surgical History PTCA:: Yes Ambulation Ambulation Notes:: independent Cardiac Rehabilitation Info Program Information Cardiac Rehabilitation Program Information: Cardiac Rehab The cardiac rehab team at [facility] consists of highly skilled exercise physiologists, nurses, respiratory therapists and physicians working together with you. Our purpose is to help you have a full recovery and achieve the goals you set for yourself. Over the years many of our patients have returned to activities they assumed they would never do again! We can help restore your confidence and motivation to make lifestyle changes that can have a significant impact on your health and quality of life! We can help answer questions and concerns you may have about exercise, lifestyle, medications, diet, stress and anxiety which are common following a hospitalization. WE monitor ECG and vital signs during exercise and discuss your progress with you and report to your physician(s). Cardiac Rehab is proven to help reduce readmissions, improve functional capacity and lower recurrence of problems with your heart. Our Cardiac Rehab program is Certified by the [place] [employer] Pulmonary [employer] (AACVPR) and Accredited by the [place] [employer] through our [facility]. You can contact us at . We invite you to call us with your questions or to get started in our program. If you have other questions or concerns be sure to ask your physician/provider during your follow-up visit. WE look forward to seeing you!
--- NOTE | 2023-05-11 10:42 | CRPH1.INSTRU ---
General Education Discussed with Patient CAD and cardiac anatomy and function:: Patient communicates acknowledgment and Family communicates acknowledgment Explanation of diagnoses and procedures:: Patient communicates acknowledgment and Family communicates acknowledgment Sign/Symptoms of [place]:: Patient communicates acknowledgment and Family communicates acknowledgment Antiplatelet therapy: Patient communicates acknowledgment and Family communicates acknowledgment Proper use of NTG-SL: Patient communicates acknowledgment and Family communicates acknowledgment Emergency procedures and activation of EMS: Patient communicates acknowledgment and Family communicates acknowledgment Compliance of all prescribed medications: Patient communicates acknowledgment and Family communicates acknowledgment Smoking Risk Factors Patient Nicotine/Smoking Risk Factors Are:: Cigarettes (former ) Recommendations Recommendations Include:: Previous smoker; encourage continued cessation Response Code Nicotine/Smoking Response Code:: Patient communicates acknowledgment and Family communicates acknowledgment Dyslipidemia Risk Factors Patient Dyslipidemia Risk Factors Are:: Total Cholesterol and Triglycerides Recommendations Recommendations Include:: Lipid profile not available Response Code Dyslipidemia Response Code:: Patient communicates acknowledgment and Family communicates acknowledgment Overweight/Obesity Risk Factors Patient Overweight/Obesity Risk Factors Are:: Obesity - > or = 30 Recommendations Recommendations Include:: Weight loss of 5-10%, Reduced calorie diet and Exercise 5-7 times/week Response Code Overweight/Obesity:: Patient communicates acknowledgment and Family communicates acknowledgment Hypertension Risk Factors Patient Hypertension Risk Factors Are:: No documented hx of HTN Heart Disease Risk Factors Patient Heart Disease Risk Factors Are:: Family history of heart disease < 65 years old and Previous cardiac event Recommendations Recommendations Include:: Educated family members of their risk and Educated family members of importance of prevention of heart disease Response Code Heart Disease Response Code:: Patient communicates acknowledgment and Family communicates acknowledgment Diabetes Risk Factors Patient Diabetes Risk Factors Are:: No documented hx of diabetes Metabolic Syndrome Risk Factors Patient Metabolic Syndrome Risk Factors Are [3 of 5]:: Waist circumference > 35 [female] or 40 [male] Recommendations Recommendations Include:: Reinforce compliance to risk factor modifications and Encouraged follow-up with Primary Care Physician Response Code Metabolic Syndrome Response Code:: Patient communicates acknowledgment and Family communicates acknowledgment Stress Risk Factors Patient Stress Risk Factors Are:: Patient denies stress as a risk factor
--- NOTE | 2023-05-11 16:15 | EKG12_ITS ---
Test Reason : POST PCI Blood Pressure : / mmHG Vent. Rate : 062 BPM Atrial Rate : 062 BPM P-R Int : 196 ms QRS Dur : 130 ms QT Int : 430 ms P-R-T Axes : 050 -46 063 degrees QTc Int : 436 ms Normal sinus rhythm Left axis deviation Non-specific intra-ventricular conduction block Abnormal ECG When compared with ECG of 08-APR-2023 05:32, Nonspecific T wave abnormality, improved in Lateral leads Confirmed by AMINA HOWELL, ROMELIA ([id number]), manuscript editor ANGELO JHAVERI ([id number]) on 05/15/2023 12:59:39 PM Referred By: Indu Messer Confirmed By:NAFISA MESSER MD
[2023-05-11] MEDS: Carvedilol 6.25 MG Tablet PO (21:44)
[2023-05-11] MEDS: TICAGRELOR 90 MG TABLET PO (21:45)
[2023-05-11] MEDS: Atorvastatin Calcium 40 MG Tablet PO (21:45)
[2023-05-12 03:41] VITALS: BP 140/84; PULSE 75; RESP 16; TEMP 36.6; O2SAT 97
[2023-05-12 06:03] LABS: Hematocrit 41.6 % (40-54); Hemoglobin 13.9 g/dL (13.0-16.5); Mean Corp Hgb Conc 33.4 g/dL (32-36); Mean Corpuscular Volume 89.7 fL (80-94); Mean Platelet Vol. 9.4 fl (6.2-12.0); Platelet Count 154 K/mm3 (150-450); RBC Distribution Width CV 12.9 % (11.6-14.6); RBC Distribution Width SD 41.7 fl (35.1-43.9); Red Blood Count 4.64 M/mm3 (4.6-6.2); White Blood Count 6.1 K/mm3 (4.4-11.0)
[2023-05-12 06:30] LABS: AST(SGOT) 21 U/L (15-37); Alanine Aminotransfer ALT/SGPT 29 U/L (16-61); Albumin, Serum 3.1 g/dL (3.2-5.0); Alkaline Phosphatase 121 U/L (45-117); Anion Gap 4 (5-15); BUN 21 mg/dL (7-18); BUN/Creat Ratio 19.6 RATIO (10-20); Chloride 112 mmol/L (98-107); Creatinine, Serum 1.07 mg/dL (0.70-1.30); EST Glomerular Filtration Rate 73 mL/min (>60); Est Glom Filt Rate - Afr Amer 88 mL/min (>60); Estimated Creatinine Clearance 66.33 ml/min; Globulin 3.1 g/dL (2.2-4.2); Glucose 135 mg/dL (74-106); Protein, Total 6.2 g/dL (6.4-8.2); Sodium Level 143 mmol/L (136-145)
[2023-05-12 09:12] VITALS: BP 137/63; PULSE 76; RESP 16; TEMP 36.8; O2SAT 98
[2023-05-12] MEDS: Losartan Potassium 100 MG Tablet PO (09:15)
[2023-05-12] MEDS: TICAGRELOR 90 MG TABLET PO (09:15)
[2023-05-12] MEDS: Carvedilol 6.25 MG Tablet PO (09:15)
[2023-05-12] MEDS: Pantoprazole Sodium 20 MG Tablet PO (09:15)
[2023-05-12] MEDS: Multivitamins,Therapeutic Tablet 1 TABLET PO (09:16)
[2023-05-12] MEDS: Aspirin E.C. 81 MG Tablet PO (09:16)
--- NOTE | 2023-05-12 10:00 | EKG12_ITS ---
Test Reason : POST CATH Blood Pressure : / mmHG Vent. Rate : 073 BPM Atrial Rate : 073 BPM P-R Int : 186 ms QRS Dur : 128 ms QT Int : 414 ms P-R-T Axes : 050 -50 082 degrees QTc Int : 456 ms Sinus rhythm with occasional Premature ventricular complexes Left axis deviation Non-specific intra-ventricular conduction block Minimal voltage criteria for LVH, may be normal variant ( [place] product ) Abnormal ECG When compared with ECG of 11-MAY-2023 09:53, MANUAL COMPARISON REQUIRED, DATA IS UNCONFIRMED Confirmed by AMINA HOWELL, ROMELIA ([id number]), publishing editor ANGELO JHAVERI ([id number]) on 05/15/2023 12:58:50 PM Referred By: Indu Messer Confirmed By:NAFISA MESSER MD
--- NOTE | 2023-05-12 13:52 | PCM.DC.SUM ---
Providers Date of Admission: 05/11/23 Primary Care Physician: Dr. Aleksandr Ramirez MD Reason For Visit: CAD STATGE PROCEDURE Diagnosis Discharge Diagnosis (1) Stented coronary artery: Status: Acute Code(s): Z95.5 - Presence of coronary angioplasty implant and graft Plan: Patient had raged PCI of LAD/diagonal bifurcation. He had an uneventful hospital course. He is being discharged home in a stable condition. He will follow-up with his primary adventure challenge instructor as an outpatient. (2) Ischemic cardiomyopathy: Status: Acute Code(s): I25.5 - Ischemic cardiomyopathy Medications at Discharge Home Medications omeprazole 20 mg capsule,delayed release 20 mg PO DAILY 03/21/21 aspirin 81 mg tablet,delayed release 81 mg PO DAILY@0800 #1 TAB 04/08/23 metformin 500 mg tablet 500 mg PO DAILY diabetes #1 TAB 04/08/23 atorvastatin 40 mg tablet 40 mg PO QHS cholesterol #90 tabs 05/02/23 carvedilol 6.25 mg tablet 6.25 mg PO BID #180 tabs 05/02/23 multivitamin (Daily Multi-Vitamin tablet) 1 tab PO DAILY 05/02/23 ticagrelor 90 mg tablet (Brilinta) 90 mg PO BID #60 tabs 05/02/23 valsartan 320 mg tablet 320 mg PO DAILY #90 tabs 05/02/23 Weight / BMI Weight Weight: 247 lb 12.793 oz Body Mass Index (BMI) 35.5 ABG / Lab / Microbiology Data 05/12/23 05:47 05/12/23 05:47 Laboratory: Laboratory Results - last 24 hr 05/12/23 05:47: WBC 6.1, RBC 4.64, Hgb 13.9, Hct 41.6, MCV 89.7, MCH 30.0, MCHC 33.4, RDW Std Deviation 41.7, RDW Coeff of [place]iy[place] 12.9, Plt Count 154, MPV 9.4, Sodium 143, Potassium 4.0, Chloride 112 H, Carbon Dioxide 27.0, Anion Gap 4 L, BUN 21 H, Creatinine 1.07, Estim Creat Clear Calc 66.33, Est GFR (MDRD) Af Amer 88, Est GFR (MDRD) Non-Af 73, BUN/Creatinine Ratio 19.6, Glucose 135 H, Calcium 8.0 L, Total Bilirubin 0.80, AST 21, ALT 29, Alkaline Phosphatase 121 H, Total Protein 6.2 L, Albumin 3.1 L, Globulin 3.1, Albumin/Globulin Ratio 1.0 D/C Instructions Additional Instructions: Do not lift anything over 5 pounds with your right arm for 5 days. Follow-up with your primary adventure challenge instructor Meaningful Use Info Meaningful Use Diagnoses (Choose all that apply): None applicable Discharge Plan Admission Admit Date/Time: 05/11/23 15:56 Primary Reason for Your Visit: CAD s/p PCI Attending Provider: Indu Messer Primary Care Provider: Aleksandr Ramirez Discharge Orders/Prescriptions Prescriptions: Continued multivitamin [Daily Multi-Vitamin] Tablet 1 tab PO DAILY atorvastatin 40 mg tablet 40 mg PO QHS Qty: 90 3RF carvedilol 6.25 mg tablet 6.25 mg PO BID Qty: 180 3RF Brilinta 90 mg tablet 90 mg PO BID Qty: 60 3RF valsartan 320 mg tablet 320 mg PO DAILY Qty: 90 3RF omeprazole 20 mg Capsule,Delayed Release(Dr/Ec) 20 mg PO DAILY aspirin 81 mg Tablet,Delayed Release (Dr/Ec) 81 mg PO DAILY@0800 Qty: 1 0RF Held metformin 500 MG tablet 500 mg PO DAILY Qty: 1 0RF Hold Instructions: Resume on 05/15/23. Rx Instructions: start on 04/09/23 Referrals / Follow Up: Aleksandr Ramirez MD [Primary Care Provider] - Indu Messer MD [Med Staff - Active Staff] - 06/12/23 10:00 am Disposition Disposition (needs filled in before D/C Order can be placed): Home, Self Care
[2023-05-12 14:53] VITALS: BP 154/86; PULSE 72; RESP 16; TEMP 37.1; O2SAT 100
--- NOTE | 2023-05-15 08:16 | CL.I_ITS ---
Patient Name: ALISSA PICHARDO Study Date: 05/11/2023 Performing: Emam Messer MD Ht: 68 inches 172.72 cm : 1950 Wt: 252.01 lbs 114.31 kg Age: 72 Gender: male BSA: 2.25 PROCEDURE(S) PERFORMED IC12-(04930/C9600)YUKI W/WO PTCA, SINGLE CORONARY ARTERY CLINICAL PROFILE AND CO-MORBIDITIES Indications: Staged PCI of LAD Heart Failure: None CONCLUSIONS Successful YUKI to the LAD RECOMMENDATIONS DESCRIPTION OF PROCEDURE The patient arrived to the procedure lab. The risks and benefits of the procedure as well as a full description of our services here and current unavailability of surgical backup were fully explained to the patient and/or their significant other prior to the catheterization. The Timeout was completed, verifying the correct patient and procedure. The patient's procedural site was prepped and draped in the usual fashion. Local anesthetic was given subcutaneously to right radial region with Lidocaine 2%. Using a modified Seldinger technique, arterial access was obtained via the right radial artery, a 6Fr sheath was inserted.. The images were reviewed and options discussed. A decision was then made to proceed with an Intervention, IVUS or other adjunct procedure. xb3.0 Guide catheter was inserted and engaged into the LCA. bmw Guide wire was advanced to the LAD. emerge 2.5x12 Balloon catheter was inserted. Balloon catheter was advanced across lesion in the LAD, proximal. PTCA balloon inflated at 8 atms for 35 secs. Angiogram performed pre balloon dilatation. Angiogram performed post balloon dilatation. francoise 3.0x15 Drug Eluting stent was inserted. Drug Eluting stent was advanced across the lesion in the LAD, proximal. Angiogram performed post stent deployment. runthrough Guide wire was advanced to the 1st Diagonal. emerge 2.25x12 Balloon catheter was inserted over the runthrough Balloon catheter was advanced across lesion in the first diagonal, ostial. 3.0x8 emerge Balloon catheter was inserted over bmw wire Balloon catheter was advanced across lesion in the LAD, proximal. Angiogram performed pre balloon dilatation. Angiogram performed post balloon dilatation. The arterial sheath was pulled and a TR Band was applied for hemostasis 14cc air INTERVENTION INFORMATION LESION SITE: LAD (Proximal) Lesion Complexity: High/C, chronic total occlusion: No, lesion at bifurcation: Yes, thrombus present: No, lesion length: 12 mm, culprit lesion: Yes, Previously treated lesion: No Pre Stenosis: 80 % Pre intervention FRANCISCO flow: 3 PROCEDURE: Drug Eluting Stent with pre and post dilatation 3.0 x 15 mm stent was deployed jailing the diagonal branch. The stent struts were crossed with a run-through wire and kissing balloon inflation was performed with a 2.25 balloon in the diagonal and 3.0 balloon in the LAD. There was excellent angiographic result. There were no complications. Post Stenosis: 0 % Post intervention FRANCISCO flow: 3 Lesion Devices: Lai .014 190cm BMW [place] Straight Cordis 6 Fr XB3.0 100cm Guide Catheter Gray Sci EMERGE MR 2.50x12 BALLOON Medtronic 3.0 x 15 FRANCOISE FRONTIER YUKI Terumo .014 180cm Runthrough Extra Floppy straight Gray Sci EMERGE MR 2.25x12 BALLOON Gray Sci EMERGE MR 3.00x08 BALLOON COMPLICATIONS No Complications PROCEDURE MEDICATIONS Fentanyl 50 mcg IV Versed 1 mg IV Oxygen: 2 L/min via nasal cannula Heparin given IA 05/11/2023 09:05:54 Heparin 5000 unit(s) IV 05/11/2023 09:07:12 Nitro 200 mcg IC 05/11/2023 09:32:19 Verapamil 2.5mg, Ntg 100mcgs, 3000 units of Heparin given IA 05/11/2023 09:05:54 SUMMARY OF HEMODYNAMIC DATA Time AIR REST ECG 07:45:45 AO 116/62 (86) SA 09:11:16 ECG 09:52:33 AIR REST 10:07:43 AIR REST ECG 15:16:55 Signed By Emam Messer MD On 05/15/2023 08:15:08 Emma Messer MD
== END 2023-05-12 13:48 | disposition home or self-care (01) ==
LOC: CLSP 16:11 → PCU 16:11
PROVIDERS: Admitting Provider Specialist; PCP Family Medicine; Referring Provider Specialist; Visit Provider Specialist
DX: I25.10 Atherosclerotic heart disease of native coronary artery without angina pectoris (principal); E11.9 Type 2 diabetes mellitus without complications; I25.5 Ischemic cardiomyopathy; I10 Essential (primary) hypertension; I25.2 Old myocardial infarction; Z87.891 Personal history of nicotine dependence; Z79.899 Other long term (current) drug therapy; Z79.82 Long term (current) use of aspirin; Z79.02 Long term (current) use of antithrombotics/antiplatelets; Z79.84 Long term (current) use of oral hypoglycemic drugs; R06.02 Shortness of breath; R53.83 Other fatigue; R42 Dizziness and giddiness; E78.2 Mixed hyperlipidemia; Z95.5 Presence of coronary angioplasty implant and graft
CPT/HCPCS: 36415; 80053; 85027; 92928; 93005; 99152; 99153; 99221; J7040; Q9967; C1725; C1769; C1874; C1887; C1894; C9600; G0378

== ENCOUNTER → 2023-05-31 | Outpatient (CLI) | payer MEDICARE, BC, SELFPAY ==
--- NOTE | 2023-05-31 12:57 | PCM.CR.HP2 ---
CR - History & Physical General Arrival date:: 05/31/23 Arrival time:: 12:57 Date of Referral:: 05/11/23 Date of CR Evaluation:: 05/31/23 Referring Physician: Dr. Messer Primary Diagnosis: PCI with coronary stent History of Present Cardiac Event Onset Date PTCA or coronary stenting:: Yes Vessel: LAD and OM1 05/11/23, 05/15/23 Medications Ambulatory Orders Medication Instructions Recorded omeprazole 20 mg capsule,delayed 20 mg PO DAILY 03/21/21 release aspirin 81 mg tablet,delayed 81 mg PO DAILY@0800 #1 TAB 04/08/23 release metformin 500 mg tablet 500 mg PO DAILY diabetes #1 TAB 04/08/23 atorvastatin 40 mg tablet 40 mg PO QHS cholesterol #90 tabs 05/02/23 carvedilol 6.25 mg tablet 6.25 mg PO BID #180 tabs 05/02/23 multivitamin (Daily Multi-Vitamin 1 tab PO DAILY 05/02/23 tablet) ticagrelor 90 mg tablet (Brilinta) 90 mg PO BID #60 tabs 05/02/23 valsartan 320 mg tablet 320 mg PO DAILY #90 tabs 05/02/23 Allergies Allergies chlorhexidine Allergy (Mild, Verified 05/02/23 14:08) HIVES Sleep Disorder Evaluation Hx of Sleep Apnea: No Do you snore loudly (louder than talking or can be heard through closed doors)?: Yes Do you often feel tired/ fatigued/ sleepy during daytime?: Yes Has anyone observed you stop breathing during sleep?: Yes History of Hypertension (for STOP score): Yes STOP Results: Positive Advanced Directives Advanced Directives 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 Living Will: Yes Advance Directives Information Provided: Yes Advance Directives on File: No DNR Order?:: No Past Medical History Covid-19 Screening Physicial Symptoms Other Clinical Concerns Exposure Risk Pertinent Comorbidities 65 years or older:: Yes Has a serious heart condition:: Yes Diabetic:: Yes Past Medical Illness Past Medical History (Updated 05/20/23 @ 00:11 by Background Daemon) CARLA (acute kidney injury) N17.9 Alcohol abuse F10.10 occasional beer Atherosclerotic heart disease of [place] coronary artery without angina pectoris I25.10 Diabetes E11.9 type 2 Former smoker Z87.891 Hypertension I10 Non-STEMI (non-ST elevated myocardial infarction) I21.4 Pancreatitis K85.90 Pancreatitis, acute K85.90 URI (upper respiratory infection) J06.9 Wears hearing aid in both ears Z97.4 Past Surgical History Past Surgical History (Updated 05/20/23 @ 00:11 by Svetlana Ureña) History of cholecystectomy Z90.49 S/P carpal tunnel release Z98.890 S/P cholecystectomy Z90.49 S/P hernia repair Z98.890, Z87.19 Stented coronary artery (05/11/23) Z95.5 2.75X 26 mm Eliel YUKI to OM1: needs staged procedure; 05/11/2023: Onxyx 3.0 X 15 YUKI to proximal LAD Family History Summary Family History Father Diabetes Mother Hypertension Social History Smoking History Smoking Status: Former smoker Years Smokin Packs Smoked per Day: 1 (35 years ago) Alcohol Use Alcohol Usage: Yes (occas beer and wine) Occupation Occupation (List type of work in comments):: Employed Hours worked per day:: 12 Hobbies, Recreation, Social Activities Hobbies: Farm and Other (hunting) Recreational Activities: I am able to engage in all my recreational activities Social Environment Status Marital Status: Current Living Arrangements Living Environment:: Spouse Children How many children do you have?: 2 Do any of your children live nearby?: Yes Safety Do you feel safe in your surroundings?: Yes Assistance Do you need any assistance at home?: no Review of Systems Review of Systems Hints Review of Present Symptoms: Reports Shortness of Breath at Rest, Dizziness/Lightheadedness, Fatigue, Appetite - Normal, Appetite - Special Diet and Sleep - Normal; Denies Shortness of Breath with Exertion, PVD, Operative Discomfort, Angina, Wound Healing, Heart Arrhythmia/Irregularities or Sexual Changes Pain Is Patient Pain Free?: Yes Pain Location: upper extremity and lower extremity Pain Level: 10 Risk Factor Assessment Chief Complaint Chief Complaint: PCI with coronary stent Vital Signs Pulse Ox: 95 Blood Pressure: 133/79 Pulse Pulse Rate: 79 Hypertension How long have you been treated?: 15 years Blood Pressure Sitting - Right Arm: 133/79 Diabetes Diabetic History: Type II Obesity Height: 5 ft 10 in Weight:: 252 lb Weight in Pounds: 252.0 lbs Body Mass Index (BMI): 36.1 Nutritional Referral for Obesity: Yes Physical Inactivity Physical Inactivity: Reg Exercise 30 min/day For Smoking Smoking Risk Guidelines For Dyslipidemia Dyslipidemia Risk Guidelines For Diabetes Mellitus Diabetes Risk Guidelines For Obesity/Overweight Obesity/Overweight Risk Guidelines For Hypertension Hypertension Risk Guidelines For Sedentary Lifestyle Sedentary Lifestyle Risk Guidelines For Depression Depression Risk Guidelines Family History Family History Father Diabetes Mother Hypertension Motivation Motivation to Participate On a scale of 1 to 10, how prepared are you to commit to attending program?: 9 What do you see as 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 In other words, what do you hope to get out of participating in the program?: more stamina Are there issues you are dealing with that will interfere with completing the program?: no Do you have a spouse or signficant other, family or friends who will help support you to complete the program?: yes
[2023-05-31 13:07] VITALS: BP 133/79; PULSE 79; O2SAT 95
--- NOTE | 2023-05-31 13:07 | CR.ITP_ITS ---
Diagnosis General Information Admitting Diagnosis: PCi with coronary stent Personal Learning Style:: Audio/Visual Stage of change r/t lifestyle modifications:: Contemplation Gave educational material for:: Treating Heart Disease, How The Heart Works, What it means to have Heart Disease, How Coronary Artery Disease is Diagnosed, Heart Procedures, What Heart Medications Do, Risk Factors & Modifications, Living an Active Life, Nutrition, Emotions & Heart Disease, Stress Management & Relaxation and Sleep Disorders & Heart Disease Education/Goals Cardiac Rehabilitation Goals Personal Goals: Initial Assessment: Improve energy level, Participate in home exercise program, Get back to work, or to resume activities faster, Improve knowledge of cardiac disease, Improve muscle strength and endurance, Improve diet and eating habits (eat healthier) and Control risk factors (learn risk factor modification) Scale for measuring improvement of personal goals Diagnosis & Disease Process Outcomes/Goals: Pt IDs own risk factors & lifestyle modifications by Session 10, Verbalizes symptoms of angina & response by session 3., Pt independently manages and Other Additional Outcomes/Goals: Plan/Interventions: Assist Pt to ID & engage in lifestyle modification to reduce CVD risk, Instruct on individual risk factors, Review symptoms of angina & emergency actions, Review secondary diagnosis & identify educational needs. and Other see comment 30 day Reassessments:: Not Met 30 day Reassessments:: Not Met 30 day Reassessments:: Not Met 30 day Reassessments:: Not Met Final Reassessments:: Not Met Safety Referral to Physical Therapy: No Referral to [facility] Case Management: No Fall Risk Assessed:: Yes Assistive Devices:: None Exercise - Initial Assessment Visit Date of Eval: 05/31/23 (initial eval ) Mets: Pre-: >3 METS for 30 minutes by discharge, >5 METS for 30 minutes by discharge, >7 METS for 30 minutes by discharge and Unable to meet goal due to: (see comment below) Physician Prescribed Exercise Modalities: Treadmill, Rower, Airdyne, NuStep, SciFit and Lateral [place] Frequency: 3x/week for 12 weeks [36 sessions] Intensity: 60-80% of age predicted maximum heart rate reserve Duration: 30 - 45 minutes Current METSs:: 3 Target Heart Rate:: 90-113 Resting Blood Pressure: 133/79 EKG Type: SR Outcomes & Goals Goals:: Verbalizes understanding of THR, RPE & goal METS by session 6, Documents in home exercise log/reports 30 min aerobic 5 day/wk by DC, Demonstrates accurate pulse taking by DC and Other additional outcome/goals: see below Intervention & Plan Exercise Program Goals: Instruct on personal THR & RPE, Instruct on MET level & personal MET goal, Show patient to take own pulse /validate performance until accurate, Instruct on home exercise and Other additional plan/int Physical Activity Home Exercise Physical Activity - Home Exercise: Safe Exercise, Warm-up, Self-monitoring, Cool-Down, Home Exercise > 30 min Daily and Sitting Time <3 hours/daily Outcomes & Goals Outcomes/Goals: Demonstrates correct Warm-up/exercise Cool-Down (S3) if = 2.5 METs, Verbalizes symptoms of exercise intolerance by Session 3 (S3), Demonstrate safe equipment use (S3) & follows exercise prescrition (6) and Other: See below Intervention & Plan Plan/Intervention: Instruct warm-up & cool-down if exercising at > 2 METs, Instruct on symptoms of exercise intolerance & actions to take, Instruct & monitor on saf, Assess intial functional capacity & safety risk and Other See below Nutrition - Initial Assessment Program Goals Nutrition Program Goals Patient has diagnosis of Hyperlipidemia (ICD E78)?: Yes Visit Date of Eval: 05/31/23 (initial eval ) Cholesterol/Lipids (Other Core Measures) Determine presence & major risk factors that modify LDL goal: Cigarette smoking, Hypertension or hypertensive medication, Low HDL cholesterol <40 mg/dL*, Family history of premature CHD in Male < 55 years: female <65 yearsFa and Age men > 45 years; women >/= 55 years Outcomes/Goals: Pt IDs own risk factors & lifestyle modifications by Session 10, Verbalizes symptoms of angina & response by session 3., Pt independently manages and Other Additional Outcomes/Goals: Intervention/Plan: Advocate for lipid panel cholesterol medication if applicable, Instruct on personal lipid levels & lipid goals/NCEP guidelines, Instruct on cholesterol and Other additional plan/int Diabetes (Other Core Measures) Diabetes Type: Diagnosis Type II ICD-10 E11 Insulin dependent injection/pump?: No Non-Insulin Dependent?: Yes Do you monitor your blood sugar at home?: Yes Referral to Diabetic Clinic:: No Outcomes/Goals:: Able to state symptoms of, Able to state, Able to state and Other additional Intervention/Plan:: Instruct on, Refer to, Instruct on and Other Weight Mgt (Other Care) Height: 5 ft 10 in Weight:: 252 lb BMI: 36.1 Diagnosis Overweight/Obesity BMI> 30% ICD-10 E66: Yes Diagnosis High BMI/Morbid Obesity BMI> 35% ICD-10 Z68: Yes Outcomes/Goals: Pt sets, maintains & shows weight loss goal & trend during rehab and Other additional outcomes/goals Intervention/Plan: Instruct on ideal BMI & set weight loss goal w/patient, Assist pt to ID & incorporate diet changes for weight loss by S9, Refer to Structured Weight Loss program as appropriate, Encourage goal of using 250- 300dcal per session for weight loss and Other additional plan/interventions Healthy Eating Habits Will attend diet classes:: Yes Outcomes/Goals:: Consume diet rich in vegs,fruits,whole grain/high fiber,fish,lean meat, Limit sat/trans fats,cholesterol & added salts & sugars and Other additional outcome/goals: Intervention/Plan:: Assess current eating habits and Other Additional plan/interventions Education Gave educational materials for:: Signs & symptoms of hypoglycemia, Signs & symptoms of hyperglycemia, Relate diabetes to coronary artery disease and Healthy eating Core - Initial Assessment Visit Date of Eval: 05/31/23 (initial eval ) Medication Compliance Preventative Medication(s):: Aspirin, Ticagrelor/P2Y12 inhibitor, Statin/lipid and Beta maico H/O mental health issues: depression, anxiety, or addiction?: No Doesn?t believe in the benefits of treatment?: No Believes medications are unnecessary or harmful?: No Has a concern about medication side effects?: No Expresses concern over the cost of medications?: No Outcomes/Goals: Verbalizes medications,desired effect & common side effects @ DC, Pt self-reports following medication regimen, Keeps card in wallet w/medications listed by DC and Other additional outcome/goals: Interventions/plans: Instruct on medication effects & side effects, Review medication list w/patient every two weeks, Instruct importance of taking meds as ordered & assist problem solving and Other additional Tobacco Use Tobacco Use: Non-smoker How long ago did you quit using tobacco products?: Greater than or equal to 6 months ago Hypertension Hypertension Diagnosis:: Hypertension ICD-10 I10 Resting Blood Pressure:: 133/79 Citizen Of [place] [employer] Hypertension Guidelines Outcomes/Goals: Able to verbalize/achieve optimal blood pressure <130/80, Incorporates diet changes & exercise for blood pressure control by DC and Other additional outcomes/goals Interventions/plan: Instruct on optimal blood pressure, hypertension & medications, Instruct on effects of sodium, alcohol, stress, exercise &hypertension and Other additional plan/interventions Tobacco Cessation Referral Smoking Cessation Referral:: No Individual Education/Counseling:: No Education Schedule Given:: Yes Psychosocial - Initial Assess VIsit Date of Eval: 05/31/23 (initial eval ) History of previous Mental disease:: No Target Goals Target Goals Outcomes/Goals: See list Psychosocial Outcomes/Goals:: ID's personal stressors & 2 strategies to manage stress by discharge and Other Additional outcome/goals: Intervention/Plan: See List Interventions/Plan:: Assess stressors,coping strategies & signs of derpression on admission, Instruct/assist pt to develop coping & personal stress Mgt strategies, Refer to Behavioral Health if appropriate, Refer to Physician if appropriate, Instruct patient to recognize signs & symptoms of depression, Instruct patient to recog and Other additional plan/intervention Patient Health Questionnaire PHQ-9 Screening Initial Assessment: 1. Little interest or pleasure in doing things: Not at all 2. Feeling down, depressed, or hopeless: Not at all 3. Trouble falling or staying asleep, or sleeping too much: Several days 4. Feeling tired or having little energy: Several days 5. Poor appetite or overeating: Several days 6. Feeling bad about yourself -- or that you are a failure or have let yourself or your family down: Not at all 7. Trouble concentrating on things, such as reading the newspaper or [place] television: Not at all 8. Moving or speaking so slowly that other people could have noticed. Or the opposite - being so fidgety or restless that you have been moving around a lot more than usual: Not at all 9. Thoughts that you would be better off , or of hurting yourself in some way: Not at all How difficult have these problems made it for you to do your work, take care of things at home, or get along with other people?: Not difficult at all Total Score: 3 CLIFFORD-Q SV Test Statements CAD is a disease of the arteries in the heart: False Examples of risk factors for heart disease: True Angina is chest pain or discomfort: I Don't Know The benefits of resistance training include: True Eating more meat and dairy products: False Anti-platelet medications such as aspirin are important: I Don't Know The only effective way to manage stress: False An exercise warm-up slowly increases heart rate: I Don't Know Prepared, processed foods usually have high sodium: True Depression is common after a heart attack: I Don't Know The statin medications lower cholesterol: True To control blood pressure, lower the amount of sodium: True If someone gets chest discomfort during walking: I Don't Know Transfats are partially hydrogenated vegetable oils: I Don't Know Sleep apnea that is not treated increases the risk: I Don't Know To control cholesterol, one should become a vegetarian: False Someone knows if he/she is exercising at the right level: I Don't Know Diabetes cannot be prevented with exercise & health eating: False Stress is a large risk for heart attack: I Don't Know A diet that can help lower blood pressure is rich in: False Total Score Total Correct Responses: 10 Self-Efficacy 6-Item Scale Initial Assessment: We would like to know how confident you are in doing certain activities. Please select your confidence level for: Fatigue Select Number: 7 Physical Discomfort or Pain Select Number: 7 Emotional Distress Select Number: 8 Other Symptoms or Health Problems Select Number: 7 Different Tasks and Activities Select Number: 8 Medication Select Number: 9 Total Score:: 7 Nutrition Survey Nutrition Survey Instructions Scoring Instructions Nutrition Survey Initial: Have you lost >10 lbs over the past 2 months without trying?: No Are you following a special diet at home for diabetes, low fat, or low salt?: Yes Are you interested in meeting with a dietitian for help understanding your diet?: Yes Do you eat less than 3 meals a day?: No Do you eat fatty meats (bhatt, sausage, ribs, etc), fried foods, desserts, large amounts of salad dressings, margarine, butter, or cheese most days?: Yes Do you have food allergies? [Enter types in comment field]: No Do you eat in restaurants more than 3 times a week?: No Do you season food with salt, seasoning salt, or garlic salt?: No Do you used canned, boxed, frozen meals, or soups, seasoning packets?: Yes Total Score:: 4 Exercise - Final/Discharge Physician Prescribed Exercise Modalities: Treadmill, Rower, Airdyne, NuStep, SciFit and Lateral [place] Frequency: 3x/week for 12 weeks [36 sessions] Intensity: 60-80% of age predicted maximum heart rate reserve Current METSs:: 3 Target Heart Rate:: 90-113 Nutrition - 30-Day Assessment Weight Mgt (Other Care) Height: 5 ft 10 in Weight:: 252 lb BMI: 36.1 Nutrition - 60-Day Assessment Weight Mgt (Other Care) Height: 5 ft 10 in Weight:: 252 lb BMI: 36.1 Core - Final Assessment Hypertension Resting Blood Pressure:: 133/79 Citizen Of [place] Heart Association Hypertension Guidelines Core - 60-Day Assessment Hypertension Resting Blood Pressure:: 133/79 Citizen [place] Heart Association Hypertension Guidelines Psychosocial - 30-Day Assess Target Goals Target Goals Psychosocial - 60-Day Assess Target Goals Target Goals Psychosocial - 90-Day Assess Target Goals Target Goals Psychosocial - Final Assessmen Target Goals Target Goals Nutrition - 90-Day Assessment Weight Mgt (Other Care) Height: 5 ft 10 in Weight:: 252 lb BMI: 36.1 Nutrition - Final Assessment Program Goals Patient has diagnosis of Hyperlipidemia (ICD E78)?: Yes Weight Mgt (Other Care) Height: 5 ft 10 in Weight:: 252 lb BMI: 36.1
[2023-05-31 13:16] VITALS: BP 133/79
[2023-05-31 13:45] VITALS: BP 133/79
[2023-05-31 14:17] VITALS: BMI 36.1
== END | disposition home or self-care (01) ==
LOC: CR 12:47
PROVIDERS: PCP Family Medicine; Referring Provider Specialist; Visit Provider Specialist
DX: I25.10 Atherosclerotic heart disease of native coronary artery without angina pectoris (principal); I25.2 Old myocardial infarction; Z95.5 Presence of coronary angioplasty implant and graft; Z87.891 Personal history of nicotine dependence

== ENCOUNTER 2023-06-28 08:00 | Outpatient (RCR) | payer MEDICARE, BC, SELFPAY ==
[2023-05-31 14:17] VITALS: BMI 36.1
== END 2023-06-28 23:59 ==
LOC: CR 08:00
PROVIDERS: PCP Family Medicine; Referring Provider Specialist; Visit Provider Specialist
DX: Z95.5 Presence of coronary angioplasty implant and graft (principal); I25.10 Atherosclerotic heart disease of native coronary artery without angina pectoris; I25.5 Ischemic cardiomyopathy; E78.2 Mixed hyperlipidemia
CPT/HCPCS: 93798

== ENCOUNTER 2023-07-26 08:00 | Outpatient (RCR) | payer MEDICARE, BC, SELFPAY ==
[2023-05-31 14:17] VITALS: BMI 36.1
--- NOTE | 2023-06-30 09:15 | CR.ITP_ITS ---
Exercise - Initial Assessment Visit Session #:: 11 Nutrition - Initial Assessment Weight Mgt (Other Care) Height: 5 ft 10 in Weight:: 238 lb BMI: 34.1 Psychosocial - Initial Assess Target Goals Target Goals Patient Health Questionnaire PHQ-9 Screening 30-Day Re-eval Assessment: 1. Little interest or pleasure in doing things: Not at all 2. Feeling down, depressed, or hopeless: Not at all 3. Trouble falling or staying asleep, or sleeping too much: Several days 4. Feeling tired or having little energy: Several days 5. Poor appetite or overeating: Several days 6. Feeling bad about yourself -- or that you are a failure or have let y ourself or your family down: Not at all 7. Trouble concentrating on things, such as reading the newspaper or watching television: Not at all 8. Moving or speaking so slowly that other people could have noticed. Or the opposite - being so fidgety or restless that you have been moving around a lot more than usual: Not at all 9. Thoughts that you would be better off , or of hurting yourself in some way: Not at all How difficult have these problems made it for you to do your work, take care of things at home, or get along with other people?: Not difficult at all Total Score: 3 Self-Efficacy 6-Item Scale 30-Day Re-eval Assessment: We would like to know how confident you are in doing certain activities. Please select your confidence level for: Fatigue Select Number: 7 Physical Discomfort or Pain Select Number: 7 Emotional Distress Select Number: 8 Other Symptoms or Health Problems Select Number: 7 Different Tasks and Activities Select Number: 8 Medication Select Number: 9 Total Score:: 7 Nutrition Survey Nutrition Survey Instructions Scoring Instructions Exercise - 30-day Assessment Visit Date of Eval: 06/30/23 Session #:: 11 Physician Prescribed Exercise Modalities: Treadmill, Airdyne and NuStep Frequency: 3x/week for 12 weeks [36 sessions] Intensity: 60-80% of age predicted maximum heart rate reserve Duration: 30 - 45 minutes Current METSs:: 3 Target Heart Rate:: 90-113 Current RPE:: 9-9.5 Maximum Excercise HR:: 99 Resting Blood Pressure: 138/62 Maximum Exercise Blood Pressure: 144/82 EKG Type: NSR w/occasional multifocal pvc,pac,pjc Outcomes & Goals Goals:: Verbalizes understanding of THR, RPE & goal METS by session 6, Documents in home exercise log/reports 30 min aerobic 5 day/wk by DC, Demonstrates accurate pulse taking by DC and Other additional outcome/goals: see below Intervention & Plan Exercise Program Goals: Instruct on personal THR & RPE, Instruct on MET level & personal MET goal, Show patient to take own pulse /validate performance until accurate, Instruct on home exercise and Other additional plan/int 30-day Reassessments 30 day Reassessments:: Progressing Reassessment Notes & Comments:: RPE explained Physical Activity Home Exercise Physical Activity - Home Exercise: Safe Exercise, Warm-up, Self-monitoring, Cool-Down, Home Exercise > 30 min Daily and Sitting Time <3 hours/daily Outcomes & Goals Outcomes/Goals: Demonstrates correct Warm-up/exercise Cool-Down (S3) if = 2.5 METs, Verbalizes symptoms of exercise intolerance by Session 3 (S3), Demonstrate safe equipment use (S3) & follows exercise prescrition (6) and Other: See below Intervention & Plan Plan/Intervention: Instruct warm-up & cool-down if exercising at > 2 METs, Instruct on symptoms of exercise intolerance & actions to take, Instruct & monitor on saf, Assess intial functional capacity & safety risk and Other See below 30-day Reassessments 30 day Reassessments:: Progressing Reassessment Notes & Comments:: warm up encouraged Nutrition - 30-Day Assessment Program Goals Nutrition Program Goals Patient has diagnosis of Hyperlipidemia (ICD E78)?: Yes Visit Date of Eval: 06/30/23 Session #:: 11 Cholesterol/Lipids (Other Core Measures) Determine presence & major risk factors that modify LDL goal: Cigarette smoking, Hypertension or hypertensive medication, Low HDL cholesterol <40 mg/dL*, Family history of premature CHD in Male < 55 years: female <65 yearsFa and Age men > 45 years; women >/= 55 years Outcomes/Goals: Pt IDs own risk factors & lifestyle modifications by Session 10, Verbalizes symptoms of angina & response by session 3., Pt independently manages and Other Additional Outcomes/Goals: Intervention/Plan: Advocate for lipid panel cholesterol medication if applicable, Instruct on personal lipid levels & lipid goals/NCEP guidelines, Instruct on cholesterol and Other additional plan/int 30-day Reassessments:: Progressing Reassessment Notes & Comments:: risk factors reviewed Diabetes (Other Core Measures) Diabetes Type: Diagnosis Type II ICD-10 E11 Insulin dependent injection/pump?: No Non-Insulin Dependent?: Yes Do you monitor your blood sugar at home?: Yes Referral to Diabetic Clinic:: No Outcomes/Goals:: Able to state symptoms of, Able to state, Able to state and Other additional Intervention/Plan:: Instruct on, Refer to, Instruct on and Other 30-day Reassessments:: Progressing Reassessment Notes & Comments:: pt to attend nutrition class Weight Mgt (Other Care) Height: 5 ft 10 in Weight:: 238 lb BMI: 34.1 Diagnosis Overweight/Obesity BMI> 30% ICD-10 E66: Yes Diagnosis High BMI/Morbid Obesity BMI> 35% ICD-10 Z68: No Outcomes/Goals: Pt sets, maintains & shows weight loss goal & trend during rehab and Other additional outcomes/goals Intervention/Plan: Instruct on ideal BMI & set weight loss goal w/patient, Assist pt to ID & incorporate diet changes for weight loss by S9, Refer to Structured Weight Loss program as appropriate, Encourage goal of using 250-300 dcal per session for weight loss and Other additional plan/interventions 30 day Reassessments:: Progressing Reassessment Notes & Comments:: pt to attend nutrition class Healthy Eating Habits Will attend diet classes:: Yes Outcomes/Goals:: Consume diet rich in vegs,fruits,whole grain/high fiber,fish,lean meat, Limit sat/trans fats,cholesterol & added salts & sugars and Other additional outcome/goals: Intervention/Plan:: Assess current eating habits and Other Additional plan/interventions 30-day Reassessments:: Progressing Reassessment Notes & Comments:: pt to attend nutrition class Education Gave educational materials for:: Signs & symptoms of hypoglycemia, Signs & symptoms of hyperglycemia, Relate diabetes to coronary artery disease and Healthy eating Nutrition - 60-Day Assessment Weight Mgt (Other Care) Height: 5 ft 10 in Weight:: 238 lb BMI: 34.1 Core - 30-Day Assessment Visit Date of Eval: 06/30/23 Session #:: 11 Medication Compliance Preventative Medication(s):: Aspirin, Ticagrelor/P2Y12 inhibitor, Statin/lipid and Beta maico H/O mental health issues: depression, anxiety, or addiction?: No Doesn?t believe in the benefits of treatment?: No Believes medications are unnecessary or harmful?: No Has a concern about medication side effects?: No Expresses concern over the cost of medications?: No Outcomes/Goals: Verbalizes medications,desired effect & common side effects @ DC, Pt self-reports following medication regimen, Keeps card in wallet w/medications listed by DC and Other additional outcome/goals: Interventions/plans: Instruct on medication effects & side effects, Review medication list w/patient every two weeks, Instruct importance of taking meds as ordered & assist problem solving and Other additional 30-day Reassessments:: Progressing Reassessment Notes & Comments:: pt encouraged to take his meds Tobacco Use Tobacco Use: Non-smoker Hypertension Hypertension Diagnosis:: Hypertension ICD-10 I10 Resting Blood Pressure:: 98/60 [place] [employer] Hypertension Guidelines Peak Exercise Blood Pressure:: 130/70 Outcomes/Goals: Able to verbalize/achieve optimal blood pressure <130/80, Incorporates diet changes & exercise for blood pressure control by DC and Other additional outcomes/goals Interventions/plan: Instruct on optimal blood pressure, hypertension & medications, Instruct on effects of sodium, alcohol, stress, exercise &hypertension and Other additional plan/interventions 30 day Reassessments:: Progressing Reassessment Notes & Comments:: pt encouraged to take his meds Tobacco Cessation Referral Smoking Cessation Referral:: No Individual Education/Counseling:: No Education Schedule Given:: Yes Psychosocial - 30-Day Assess VIsit Date of Eval: 06/30/23 Session #:: 11 History of previous Mental disease:: No Target Goals Target Goals Outcomes/Goals: See list Psychosocial Outcomes/Goals:: ID's personal stressors & 2 strategies to manage stress by discharge and Other Additional outcome/goals: Intervention/Plan: See List Interventions/Plan:: Assess stressors,coping strategies & signs of derpression on admission, Instruct/assist pt to develop coping & personal stress Mgt strategies, Refer to Behavioral Health if appropriate, Refer to Physician if appropriate, Instruct patient to recognize signs & symptoms of depression, Instruct patient to recog and Other additional plan/intervention 30-day Reassessments: 30 day Reassessments:: Met Psychosocial - 60-Day Assess Target Goals Target Goals Outcomes/Goals: See list Psychosocial Outcomes/Goals:: ID's personal stressors & 2 strategies to manage stress by discharge and Other Additional outcome/goals: Psychosocial - 90-Day Assess Target Goals Target Goals Psychosocial - Final Assessmen Target Goals Target Goals Nutrition - 90-Day Assessment Weight Mgt (Other Care) Height: 5 ft 10 in Weight:: 238 lb BMI: 34.1 Nutrition - Final Assessment Weight Mgt (Other Care) Height: 5 ft 10 in Weight:: 238 lb BMI: 34.1
[2023-06-30 09:25] VITALS: BP 138/62; BP 98/60; BMI 34.1
== END 2023-07-27 23:59 ==
LOC: CR 08:00
PROVIDERS: PCP Family Medicine; Referring Provider Specialist; Visit Provider Specialist
DX: Z95.5 Presence of coronary angioplasty implant and graft (principal); I25.10 Atherosclerotic heart disease of native coronary artery without angina pectoris; I25.5 Ischemic cardiomyopathy; E78.2 Mixed hyperlipidemia
CPT/HCPCS: 93798

== ENCOUNTER → 2023-08-09 | Outpatient (CLI) | payer MEDICARE, BC, SELFPAY ==
[2023-05-31 14:17] VITALS: BMI 36.1
[2023-06-30 09:25] VITALS: BMI 34.1
[2023-07-28 09:24] VITALS: BMI 34.1
--- NOTE | 2023-08-09 09:44 | ECHOLC_ITS ---
Reason For Study: Eval EF post Stent Procedure This was a limited 2D transthoracic echocardiogram. Contrast injection was performed. Exam performed in department. Left Ventricle Mildly dilated left ventricle. The left ventricular ejection fraction is 40 %. Right Ventricle Normal right ventricle. Atria The left atrium is mildly enlarged. Normal right atrium. Mitral Valve Mild (1+) mitral valve insufficiency. Tricuspid Valve Trivial tricuspid valve insufficiency. Normal pulmonary artery pressure. Aortic Valve Suspect functionally bicuspid aortic valve with fusion of the left and right coronary cusps. Mild calcification. Mean peak gradient 6 mmHg. Trivial aortic valve insufficiency. Pulmonic Valve The pulmonic valve is not well visualized. Great Vessels Normal sized aortic root. Pericardium/Pleural No pericardial effusion. Medication Diluted definity 2ml given slow IV push to enhance endocardial definition. MMode/2D Measurements & Calculations LVIDd: 4.6 cm IVSd: 1.0 cm Ao root diam: 3.4 cm LVIDs: 3.8 cm LVPWd: 0.88 cm FS: 17.9 % LVAd ap4: 41.1 cm2 SV(MOD-sp4): 62.4 ml SV(sp4-el): 64.4 ml LVLd ap4: 8.8 cm EDV(MOD-sp4): 157.1 ml EDV(sp4-el): 162.8 ml LVAs ap4: 29.1 cm2 LVLs ap4: 7.3 cm ESV(MOD-sp4): 94.7 ml ESV(sp4-el): 98.4 ml EF(MOD-sp4): 39.7 % EF(sp4-el): 39.6 % Doppler Measurements & Calculations Ao V2 max: 173.4 cm/sec LV V1 max: 83.1 cm/sec TR max cher: 216.5 cm/sec Ao max P.0 mmHg LV V1 max P.8 mmHg TR max P.8 mmHg Ao V2 mean: 121.9 cm/sec Ao mean P.4 mmHg Ao V2 VTI: 31.6 cm ECHO/Echo Limited w/Contrast Interpretation Summary There is a large sized septal, inferior, posterior, and lateral wall motion abn ormality with hypokinesis to akinesis of the segments. Mildly dilated left ventricle. The left ventricular ejection fraction is 40 %. The left atrium is mildly enlarged. Mild (1+) mitral valve insufficiency. Suspect functionally bicuspid aortic valve with fusion of the left and right co ronary cusps. Mild calcification. Mean peak gradient 6 mmHg. Ordering Physician: Albin Leon Referring Physician: Ortiz Ramirez Performed By: Aixa Leon, SUPRIYA, RVT
== END | disposition home or self-care (01) ==
LOC: CVS 09:43
PROVIDERS: PCP Family Medicine; Referring Provider Nurse Practitioner Family; Visit Provider Nurse Practitioner Family
DX: I25.10 Atherosclerotic heart disease of native coronary artery without angina pectoris (principal)
CPT/HCPCS: 93308; Q9957; A4216; C8924

== ENCOUNTER 2023-08-25 08:00 | Outpatient (RCR) | payer MEDICARE, BC, SELFPAY ==
[2023-06-30 09:25] VITALS: BMI 34.1
[2023-07-28 00:29] VITALS: BP 138/62; BP 98/60
--- NOTE | 2023-07-28 09:11 | PCM.CR.ITP ---
Nutrition - Initial Assessment Weight Mgt (Other Care) Height: 5 ft 10 in Weight:: 238 lb BMI: 34.1 Psychosocial - Initial Assess Target Goals Target Goals Patient Health Questionnaire PHQ-9 Screening 60-Day Re-eval Assessment: 1. Little interest or pleasure in doing things: Not at all 2. Feeling down, depressed, or hopeless: Not at all 3. Trouble falling or staying asleep, or sleeping too much: Several days 4. Feeling tired or having little energy: Several days 5. Poor appetite or overeating: Several days 6. Feeling bad about yourself -- or that you are a failure or have let yourself or your family down: Not at all 7. Trouble concentrating on things, such as reading the newspaper or watching television: Not at all 8. Moving or speaking so slowly that other people could have noticed. Or the opposite - being so fidgety or restless that you have been moving around a lot more than usual: Not at all 9. Thoughts that you would be better off , or of hurting yourself in some way: Not at all How difficult have these problems made it for you to do your work, take care of things at home, or get along with other people?: Not difficult at all Total Score: 3 Self-Efficacy 6-Item Scale 60-Day Re-eval Assessment: We would like to know how confident you are in doing certain activities. Please select your confidence level for: Fatigue Select Number: 7 Physical Discomfort or Pain Select Number: 7 Emotional Distress Select Number: 8 Other Symptoms or Health Problems Select Number: 7 Different Tasks and Activities Select Number: 8 Medication Select Number: 9 Total Score:: 7 Nutrition Survey Nutrition Survey Instructions Scoring Instructions Exercise - 60-day Assessment Visit Date of Eval: 07/28/23 Session #:: 23 Physician Prescribed Exercise Modalities: Treadmill, Rower and NuStep Frequency: 3x/week for 12 weeks [36 sessions] Intensity: 60-80% of age predicted maximum heart rate reserve Duration: 30 - 45 minutes Current METSs:: 4.5 Target Heart Rate:: 90-120 Current RPE:: 9-10 Maximum Excercise HR:: 117 Resting Blood Pressure: 126/60 Maximum Exercise Blood Pressure: 162/74 EKG Type: NSR to ST with rare PVC's Outcomes & Goals Goals:: Verbalizes understanding of THR, RPE & goal METS by session 6, Documents in home exercise log/reports 30 min aerobic 5 day/wk by DC, Demonstrates accurate pulse taking by DC and Other additional outcome/goals: see below Intervention & Plan Exercise Program Goals: Instruct on personal THR & RPE, Instruct on MET level & personal MET goal, Show patient to take own pulse /validate performance until accurate, Instruct on home exercise and Other additional plan/int 30-day Reassessments 30 day Reassessments:: Progressing Reassessment Notes & Comments:: THR explained Physical Activity Home Exercise Physical Activity - Home Exercise: Safe Exercise, Warm-up, Self-monitoring, Cool-Down, Home Exercise > 30 min Daily and Sitting Time <3 hours/daily Outcomes & Goals Outcomes/Goals: Demonstrates correct Warm-up/exercise Cool-Down (S3) if = 2.5 METs, Verbalizes symptoms of exercise intolerance by Session 3 (S3), Demonstrate safe equipment use (S3) & follows exercise prescrition (6) and Other: See below Intervention & Plan Plan/Intervention: Instruct warm-up & cool-down if exercising at > 2 METs, Instruct on symptoms of exercise intolerance & actions to take, Instruct & monitor on saf, Assess intial functional capacity & safety risk and Other See below 30-day Reassessments 30 day Reassessments:: Progressing Reassessment Notes & Comments:: cool down encouraged Nutrition - 30-Day Assessment Weight Mgt (Other Care) Height: 5 ft 10 in Weight:: 238 lb BMI: 34.1 Nutrition - 60-Day Assessment Program Goals Nutrition Program Goals Patient has diagnosis of Hyperlipidemia (ICD E78)?: Yes Visit Date of Eval: 07/28/23 Session #:: 23 Cholesterol/Lipids (Other Core Measures) Determine presence & major risk factors that modify LDL goal: Cigarette smoking, Hypertension or hypertensive medication, Low HDL cholesterol <40 mg/dL*, Family history of premature CHD in Male < 55 years: female <65 yearsFa and Age men > 45 years; women >/= 55 years Outcomes/Goals: Pt IDs own risk factors & lifestyle modifications by Session 10, Verbalizes symptoms of angina & response by session 3., Pt independently manages and Other Additional Outcomes/Goals: Intervention/Plan: Advocate for lipid panel cholesterol medication if applicable, Instruct on personal lipid levels & lipid goals/NCEP guidelines, Instruct on cholesterol and Other additional plan/int 30-day Reassessments:: Progressing Reassessment Notes & Comments:: pt to attend nutrition class Diabetes (Other Core Measures) Diabetes Type: Diagnosis Type II ICD-10 E11 Insulin dependent injection/pump?: No Non-Insulin Dependent?: Yes Do you monitor your blood sugar at home?: Yes Referral to Diabetic Clinic:: No Outcomes/Goals:: Able to state symptoms of, Able to state, Able to state and Other additional Intervention/Plan:: Instruct on, Refer to, Instruct on and Other 30-day Reassessments:: Progressing Reassessment Notes & Comments:: pt to attend nutrition class Weight Mgt (Other Care) Height: 5 ft 10 in Weight:: 238 lb BMI: 34.1 Diagnosis Overweight/Obesity BMI> 30% ICD-10 E66: Yes Diagnosis High BMI/Morbid Obesity BMI> 35% ICD-10 Z68: No Outcomes/Goals: Pt sets, maintains & shows weight loss goal & trend during rehab and Other additional outcomes/goals Intervention/Plan: Instruct on ideal BMI & set weight loss goal w/patient, Assist pt to ID & incorporate diet changes for weight loss by S9, Refer to Structured Weight Loss program as appropriate, Encourage goal of using 250-300dcal per session for weight loss and Other additional plan/interventions 30 day Reassessments:: Progressing Reassessment Notes & Comments:: pt to attend nutrition class Healthy Eating Habits Will attend diet classes:: Yes Outcomes/Goals:: Consume diet rich in vegs,fruits,whole grain/high fiber,fish,lean meat, Limit sat/trans fats,cholesterol & added salts & sugars and Other additional outcome/goals: Intervention/Plan:: Assess current eating habits and Other Additional plan/interventions 30-day Reassessments:: Progressing Reassessment Notes & Comments:: pt to attend nutrition class Education Gave educational materials for:: Signs & symptoms of hypoglycemia, Signs & symptoms of hyperglycemia, Relate diabetes to coronary artery disease and Healthy eating Core - 60-Day Assessment Visit Date of Eval: 07/28/23 Session #:: 23 Medication Compliance Preventative Medication(s):: Aspirin, Ticagrelor/P2Y12 inhibitor and Beta maico H/O mental health issues: depression, anxiety, or addiction?: No Doesn?t believe in the benefits of treatment?: No Believes medications are unnecessary or harmful?: No Has a concern about medication side effects?: No Expresses concern over the cost of medications?: No Outcomes/Goals: Verbalizes medications,desired effect & common side effects @ DC, Pt self-reports following medication regimen, Keeps card in wallet w/medications listed by DC and Other additional outcome/goals: Interventions/plans: Instruct on medication effects & side effects, Review medication list w/patient every two weeks, Instruct importance of taking meds as ordered & assist problem solving and Other additional 30-day Reassessments:: Progressing Reassessment Notes & Comments:: pt encouraged to take his meds Tobacco Use Tobacco Use: Non-smoker Hypertension Hypertension Diagnosis:: Hypertension ICD-10 I10 Resting Blood Pressure:: 120/60 [place] [employer] Hypertension Guidelines Peak Exercise Blood Pressure:: 162/74 Outcomes/Goals: Able to verbalize/achieve optimal blood pressure <130/80, Incorporates diet changes & exercise for blood pressure control by DC and Other additional outcomes/goals Interventions/plan: Instruct on optimal blood pressure, hypertension & medications, Instruct on effects of sodium, alcohol, stress, exercise &hypertension and Other additional plan/interventions 30 day Reassessments:: Progressing Reassessment Notes & Comments:: pt encouraged to take his meds Tobacco Cessation Referral Smoking Cessation Referral:: No Individual Education/Counseling:: No Education Schedule Given:: Yes Psychosocial - 30-Day Assess Target Goals Target Goals Outcomes/Goals: See list Psychosocial Outcomes/Goals:: ID's personal stressors & 2 strategies to manage stress by discharge and Other Additional outcome/goals: Psychosocial - 60-Day Assess VIsit Date of Eval: 07/28/23 Session #:: 23 History of previous Mental disease:: No Target Goals Target Goals Outcomes/Goals: See list Psychosocial Outcomes/Goals:: ID's personal stressors & 2 strategies to manage stress by discharge and Other Additional outcome/goals: Intervention/Plan: See List Interventions/Plan:: Assess stressors,coping strategies & signs of derpression on admission, Instruct/assist pt to develop coping & personal stress Mgt strategies, Refer to Behavioral Health if appropriate, Refer to Physician if appropriate, Instruct patient to recognize signs & symptoms of depression, Instruct patient to recog and Other additional plan/intervention 30-day Reassessments: 30 day Reassessments:: Met Psychosocial - 90-Day Assess Target Goals Target Goals Psychosocial - Final Assessmen Target Goals Target Goals Nutrition - 90-Day Assessment Weight Mgt (Other Care) Height: 5 ft 10 in Weight:: 238 lb BMI: 34.1 Nutrition - Final Assessment Weight Mgt (Other Care) Height: 5 ft 10 in Weight:: 238 lb BMI: 34.1
[2023-07-28 09:24] VITALS: BP 120/60; BP 126/60; BMI 34.1
== END 2023-08-27 23:59 ==
LOC: CR 08:00
PROVIDERS: PCP Family Medicine; Referring Provider Specialist; Visit Provider Specialist
DX: Z95.5 Presence of coronary angioplasty implant and graft (principal); I25.10 Atherosclerotic heart disease of native coronary artery without angina pectoris; I25.5 Ischemic cardiomyopathy; E78.2 Mixed hyperlipidemia
CPT/HCPCS: 93798

== ENCOUNTER 2023-08-28 06:03 | Outpatient (RCR) | payer MEDICARE, BC, SELFPAY ==
[2023-07-28 09:24] VITALS: BMI 34.1
[2023-08-28 00:44] VITALS: BP 120/60; BP 126/60; BP 138/62; BP 98/60
== END 2023-09-26 23:59 ==
LOC: CR 06:03
PROVIDERS: PCP Family Medicine; Referring Provider Specialist; Visit Provider Specialist
DX: Z95.5 Presence of coronary angioplasty implant and graft (principal); I25.10 Atherosclerotic heart disease of native coronary artery without angina pectoris; I25.5 Ischemic cardiomyopathy; E78.2 Mixed hyperlipidemia
CPT/HCPCS: 93798

== ENCOUNTER 2025-01-14 21:10 | Emergency (ER) | payer MEDICARE, BC, SELFPAY ==
[2023-07-28 09:24] VITALS: BMI 34.1
[2025-01-14 21:11] VITALS: BP 188/81; PULSE 71; RESP 24; TEMP 36.2; O2SAT 97; BMI 36.5
--- NOTE | 2025-01-14 22:02 | CT_ITS ---
PROCEDURE: ABDOMEN/PELVIS WITHOUT CONT 01/14/2025 REASON FOR EXAM: LEFT FLANK PAIN TECHNIQUE: ABDOMEN/PELVIS WITHOUT CONT Noncontrast technique limits evaluation of the abdominal and pelvic viscera. Coronal and Sagittal reconstruction series were provided. One or more dose reduction techniques were used (e.g., Automated exposure control, adjustment of the mA and/or kV according to patient size, use of iterative reconstruction technique). COMPARISON: CT chest, abdomen and pelvis 04/06/2023 FINDINGS: Lung bases: Diffuse pulmonary vascular congestion and bibasilar dependent atelectasis. Mild cardiomegaly. Liver: Normal size. No obvious mass. Gallbladder: Not visualized and likely surgically absent. No biliary ductal dilatation. Spleen: Normal size. Pancreas: Diffuse fatty atrophy. 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 Left adrenal gland unremarkable. Kidneys: There is an obstructing 4 mm calculus in the proximal left ureter causing mild left hydronephrosis and left perinephric fat stranding. No right renal calculus or hydronephrosis. Bladder: Underdistended, limiting evaluation. Reproductive Organs: Prostate not enlarged. Bowel: Scattered colonic diverticulosis without acute diverticulitis. No bowel obstruction. Appendix: Normal. Lymph nodes: No enlarged lymph nodes. Vasculature: The abdominal aorta and IVC contours are normal. Noncontrast technique limits evaluation. Peritoneum / Retroperitoneum: No free fluid or air. Bones: Degenerative changes of the spine. No acute fractures. CT/Abdomen/Pelvis without Cont IMPRESSION: 1. Obstructing 4 mm calculus in the proximal left ureter causing mild left hydr onephrosis and left perinephric fat stranding. 2. 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 3. Diffuse pulmonary venous congestion and bibasilar dependent atelectasis. Reading [facility]
[2025-01-14] MEDS: 0.9% Normal Saline (1000mL) 1,000 ML 999 ML IV (22:17)
[2025-01-14 22:33] LABS: Hematocrit 44.2 % (40-54); Hemoglobin 15.4 g/dL (13.0-16.5); Immature Granulocytes Count 0.020 X10^3/uL (0.0-0.0); Mean Corp Hgb Conc 34.8 g/dL (32-36); Mean Corpuscular Volume 88.6 fL (80-94); Mean Platelet Vol. 9.9 fl (6.2-12.0); NRBC Flagged by Analyzer 0 % (0-5); Platelet Count 185 K/mm3 (150-450); RBC Distribution Width CV 12.4 % (11.6-14.6); RBC Distribution Width SD 40.0 fl (35.1-43.9); Red Blood Count 4.99 M/mm3 (4.6-6.2); White Blood Count 7.0 K/mm3 (4.4-11.0)
--- NOTE | 2025-01-14 22:36 | EX.ED.DYSGE1 ---
HPI History of Present Illness Chief Complaint: Abd Pain Informant: patient and spouse/S.O. Narrative Narrative: Patient is a 74-year-old male with past medical history of hypertension hyperlipidemia CAD and rwm-rolgthk-emnhidubc diabetes. He states that roughly 1 to 2 hours prior to arrival he was sitting in the chair and he stood up and next thing he knew he was having sharp left-sided abdominal pain. He states that after the pain came on he then developed a few bouts of nausea and vomiting. He states that there has been no trauma or excessive activity. He denies any fevers or chills diarrhea constipation dysuria or hematuria. He states there is no comfortable position. He states that there has been no improvement of the symptoms over the last few hours and secondary to this he comes in for evaluation. [facility] Medical History Acute right-sided low back pain Ischemic cardiomyopathy Atherosclerotic heart disease of [place] coronary artery without angina pectoris Non-STEMI (non-ST elevated myocardial infarction) CARLA (acute kidney injury) Pancreatitis Pancreatitis, acute Wears hearing aid in both ears Alcohol abuse URI (upper respiratory infection) Former smoker Hypertension Diabetes Home Medications ?Medication ?Instructions ?Recorded ?Last Taken ?Type omeprazole 20 mg capsule,delayed 20 mg PO DAILY 03/21/21 04/06/23 History release metformin 500 mg tablet 500 mg PO DAILY diabetes #1 TAB 04/08/23 05/10/23 Rx multivitamin (Daily Multi-Vitamin 1 tab PO DAILY 05/02/23 Unknown History tablet) nitroglycerin 0.4 mg sublingual 0.4 mg sublingual Q5-15M PRN chest 09/28/23 Unknown Rx tablet pain #30 tabs valsartan 320 mg tablet 320 mg PO DAILY #90 tabs 12/20/23 Unknown Rx carvedilol 25 mg tablet 25 mg PO BID #60 tabs 03/18/24 Unknown Rx clopidogrel 75 mg tablet 75 mg PO DAILY #90 tabs 04/05/24 Unknown Rx atorvastatin 40 mg tablet 40 mg PO BID cholesterol 12/11/24 Unknown History ketorolac 10 mg tablet 10 mg PO 4X/DAY PRN pain 5 days 01/14/25 Unknown Rx #20 tabs ondansetron 4 mg disintegrating 4 mg PO TID PRN nausea and 01/14/25 Unknown Rx tablet vomiting #21 tabs oxycodone-acetaminophen 5 mg-325 1 tab PO Q6H PRN pain 5 days #20 01/14/25 Unknown Rx mg tablet (Percocet) tabs tamsulosin 0.4 mg capsule (Flomax) 0.4 mg PO DAILY 14 days #14 caps 01/14/25 Unknown Rx cephalexin 500 mg capsule 500 mg PO TID 7 days #21 caps 01/15/25 Unknown Rx Allergy/AdvReac Type Severity Reaction Status Date / Time chlorhexidine Allergy Mild HIVES Verified 01/14/25 21:10 Family History Father Diabetes Mother Hypertension Surgical History Stented coronary artery (05/11/23) History of cholecystectomy S/P carpal tunnel release S/P hernia repair S/P cholecystectomy Social History household members: spouse housing: house Smoking Status: Former smoker how long ago did patient quit smokin years ago alcohol intake: current alcohol intake frequency: a few times a month Alcohol type: beer and wine substance use type: does not use caffeine: Yes (Occasionally) Type: tea ROS ROS ED Constitutional Constitutional ED: Denies chills or fever(s) ENT ENT ED: Denies sore throat Cardiovascular Cardiovascular: Denies chest pain Respiratory/Chest Respiratory/Chest: Denies cough or dyspnea Gastrointestinal Gastrointestinal: Reports abdominal pain, nausea and vomiting; Denies constipation or diarrhea Genitourinary Genitourinary ED: Denies dysuria or hematuria Musculoskeletal Musculoskeletal: Reports back pain Integumentary Denies rash Neurologic Neurologic: Denies headache(s) Hematologic/Lymphatic Hematologic/Lymphatic: Reports easy bleeding and easy bruising EXAM Physical Exam Const Vital Signs: 01/14/25 21:11 01/14/25 23:10 Temperature 97.2 F L Temperature Source Temporal Pulse Rate 71 80 Respiratory Rate 24 H Blood Pressure 188/81 H 167/89 H Blood Pressure Mean 116 115 Pulse Ox 97 96 Oxygen Delivery Method Room Air Positive well nourished, well developed and obese General Appearance ED: well developed; Negative for pallor Nutritional Appearance: obese HEENT HEENT Narrative: Normocephalic atraumatic Eyes PERRL and EOMs intact bilaterally General Eye ED: Negative for scleral icterus Neck supple and no JVD Resp normal respiratory effort and clear to auscultation bilaterally Cardio regular rate and regular rhythm Rate: other Other Details: Heart is regular rate and rhythm Radial and carotid pulses are equal and symmetric GI non-distended and no masses GI Narrative: Abdomen is soft and nondistended with normal active bowel sounds. There is diffuse pain along the left lateral abdomen. No voluntary guarding or rigidity. No pulsatile mass or fluid wave. Auscultation: normoactive bowel sounds Palpation: soft Back/Spine Back/Spine Narrative: Positive left CVA pain noted Extremity normal to inspection Neuro oriented x3, CN's II-XII intact bilaterally and no sensory deficits noted Sensorium / Orientation: alert Motor Exam: strength 5/5 throughout Psych mental status grossly normal Skin no rashes or lesions noted and no wounds Skin Narrative: No overlying soft tissue changes to suggest trauma or infection General Skin Exam: Negative for jaundice or pallor MDM MDM MDM Narrative Medical decision making narrative: Patient arrived here hypertensive but has a past medical history of this and is in pain so it is to be expected and otherwise vitals are stable. He reported sudden onset of sharp left-sided abdominal pain without a comfortable position and bouts of nausea and vomiting. Differential diagnosis is for kidney stone versus is UTI versus pyelonephritis versus diverticulitis. History and exam is most consistent with kidney stone therefore basic labs with a noncontrast CT were obtained. Labs revealed no signs of urosepsis or acute kidney injury. CT scan confirmed a 4 mm stone in the proximal left ureter. It does have mild hydronephrosis and fat stranding but without fever or leukocytosis I have low concern for developing infection. After receiving IV fluids as well as Toradol morphine patient reported a pain value of 2. Therefore this time he does not have CARLA he does not have urosepsis his pain is well-controlled and therefore there is no need for emergent urology consultation or admission. The patient will be placed on symptomatic medications and can follow-up with urology as an outpatient. This plan of care was discussed with patient and spouse and they are agreeable to it. History & Record Review Discussion w/independent historian: Patient and Significant other Lab Data Attestation: I reviewed the patient's lab results. Labs: Laboratory Results - last 24 hr 01/14/25 22:22 WBC 7.0 RBC 4.99 Hgb 15.4 Hct 44.2 MCV 88.6 MCH 30.9 MCHC 34.8 RDW Std Deviation 40.0 RDW Coeff of Aiyana 12.4 Plt Count 185 MPV 9.9 Immature Gran % (Auto) 0.300 Neut % (Auto) 71.8 H Lymph % (Auto) 17.3 L Hutchinson % (Auto) 6.8 Eos % (Auto) 2.9 Baso % (Auto) 0.9 Absolute Neuts (auto) 5.0 Absolute Lymphs (auto) 1.20 Nucleated RBC % 0 Sodium 141 Potassium 4.5 Chloride 108 Carbon Dioxide 20.8 L Anion Gap 13 BUN 21 H Creatinine 1.42 H Estim Creat Clear Calc 59.83 Est GFR (MDRD) Non-Af 53 L BUN/Creatinine Ratio 14.6 Glucose 162 H Calcium 8.7 Radiography Diagnostic Testing: Clinical Impression(s) from Imaging Studies Abdomen/Pelvis CT 01/14/25 22:02 IMPRESSION: 1. Obstructing 4 mm calculus in the proximal left ureter causing mild left hydronephrosis and left perinephric fat stranding. 2. 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 3. Diffuse pulmonary venous congestion and bibasilar dependent atelectasis. Reading Location: [facility] Discharge Plan Triage Chief Complaint: Abd Pain ED Provider: Brett Mazariegos Dx/Rx/DC Orders Clinical Impression: Kidney stone, Renal colic, Hypertension, Dyslipidemia, Non-insulin dependent diabetes mellitus Instructions: ED Kidney Stone with Pain Prescriptions: New oxycodone-acetaminophen [Percocet] 5-325 mg tablet 1 tab PO Q6H PRN (Reason: pain) 5 Days Qty: 20 0RF ketorolac 10 mg tablet 10 mg PO 4X/DAY PRN (Reason: pain) 5 Days Qty: 20 0RF tamsulosin [Flomax] 0.4 mg capsule 0.4 mg PO DAILY 14 Days Qty: 14 0RF ondansetron 4 mg tablet,disintegrating 4 mg PO TID PRN (Reason: nausea and vomiting) Qty: 21 0RF cephalexin 500 mg capsule 500 mg PO TID 7 Days Qty: 21 0RF No Action multivitamin [Daily Multi-Vitamin] Tablet 1 tab PO DAILY atorvastatin 40 mg tablet 40 mg PO BID omeprazole 20 mg Capsule,Delayed Release(Dr/Ec) 20 mg PO DAILY metformin 500 MG tablet 500 mg PO DAILY Qty: 1 0RF Rx Instructions: start on 04/09/23 nitroglycerin 0.4 mg tablet, sublingual 0.4 mg sublingual Q5-15M PRN (Reason: chest pain) Qty: 30 11RF valsartan 320 mg tablet 320 mg PO DAILY Qty: 90 3RF carvedilol 25 mg tablet 25 mg PO BID Qty: 60 11RF clopidogrel 75 mg tablet 75 mg PO DAILY Qty: 90 3RF Primary Care Provider: Aleksandr Ramirez Referrals: Aleksandr Ramirez MD [Primary Care Provider] - Yaya Tristan MD [Med Staff - Active Staff] - Activity Restrictions/Additional Instructions: Please take your Percocet and Toradol together on a scheduled basis to help control pain and keep yourself well-hydrated and stay active to help pass your stone. If you develop a fever of 100.4 or higher or have intractable pain despite taking your medication or any further concerns please return to the ER for repeat evaluation. Print Language: Lao Disposition Disposition: Home, Self Care
--- OUTSIDE RECORDS SUMMARY | 2025-01-14 22:50 | XMS RPT_ITS | CCD ---
Author Organization [facility] Care Team Providers Care Formulator Compounder Name Role Phone Son Ramirez MD Primary Care Provider SON RAMIREZ Consulting Unavailab le TAYLOR GARCIA PAC Attending Unavailable TAYLOR GARCIA PAC Primary Care Unavailable TAYLOR GARCIA PAC Admitting Unavailable PROVIDER, UNKNOWN Consulting Unavailable Son Ramirez MD Primary Care Provider Dr. Aleksandr Ramirez Primary Care Provider MD Jose Angel N[place] Emergency Provider [phone] Jf Dow Admit Provider Dr. Jf Dow Other Provider Dr. Indu Messer Attending Provider Dr. Indu Messer Other Provider Dr. Dion Sabillon Attending Provider Dr. Dion Sabillon Other Provider Dr. Indu Messer Referring Provider Dr. Luis Sylvester Attending Provider Dr. Luis Sylvester Referring Provider Dr. Aleksandr Ramirez Referring Provider Edward INFORMATION SYSTEMS SECURITY DEVELOPER, INFORMATION SYSTEMS SECURITY DEVELOPER-Jannie Erazo Attending Provider Dr. Indu Messer Admit Provider Dr. Aleksandr Ramirze Primary Care Provider [phone] Dr. Aleksandr Ramirez Referring Provider Roof INFORMATION SYSTEMS SECURITY DEVELOPER, INFORMATION SYSTEMS SECURITY DEVELOPER-C Albin Erazo Attending Provider Ayde, Dr. Griggs Attending Provider Ayde, Dr. Griggs Admit Provider Ayde, Dr. Griggs Referring Provider Ayde, Dr. Griggs Other Provider Dr. Tino Garcia Attending Provider James, Dr. Brandon Primary Care Provider Dr. Aleksandr Ramirez Referring Provider Roof INFORMATION SYSTEMS SECURITY DEVELOPER, INFORMATION SYSTEMS SECURITY DEVELOPER-Jannie Erazo Attending Provider Son Ramirez MD Primary Care Provider Podlogar EXIT BOOTH AGENT.Umu BONNER Unavailable Varsha EXIT BOOTH AGENT.JUNIOR DATABASE ADMINISTRATOR, Jenn Unavailable PODLOGAR, UMU Attending Unavailable JAMES, JOSIEER B Primary Care Unavailab le PODLOGUMU FATIMA Referring Unavailable JAMES, CHRISTOPHER B Primary Care Unavailab le TESTRAKEALISSA Attending Unavailable TESTALISSA SALAS Referring Unavailable HAOLEY, CHRISTOPHER B Primary Care Unavailab SON Jimenez B Attending Unavailab le JAMES, CHRISTOPHER B Primary Care Unavailab le PODLOGAR, UMU Referring Unavailable BURSLEY, CHRISTOPHER B Primary Care Unavailab le TESTRAKE, ALISSA Referring Unavailable HAOLEY, CHRISTOPHER B Primary Care Unavailab tiana Ramirez MD, Dr. Brandon Primary Care Provider Dr. Aleksandr Ramirez MD Referring Provider Gelacio Phillip Attending Provider Aleksandr Ramirez Primary Care Unavailable Aleksandr Ramirez Referring Unavailable Tino Garcia Attending Unavailable Gelacio Barr Attending Unavailable James, Aleksandr Primary Care Unavailable Aleksandr Ramirez Referring Unavailable Gelacio Barr Attending Unavailable Gelacio Barr Referring Unavailable Aleksandr Ramirez Primary Care Unavailable Allergies Allergy Classification Reported Allergen(s) Allergy Type Date of Onset Reaction(s) Facility Chlorhexidine (1 source) Chlorhexidine Drug Allergy 04-06-2023 [facility] dapagliflozin (1 source) dapagliflozin Drug Allergy 11-14-2023 [facility] (20 sources) Chlorhexidine; Translations: [CHLORHEXIDINE] Drug Allergy 04-06-2023 [facility] (9 sources) dapagliflozin; Translations: [DAPAGLIFLOZIN] Drug Allergy 11-14-2023 [facility] Work Phone: (1 source) Chlorhexidine Drug Allergy 12-11-2024 [facility] Repository Medications Current Medications Medication Drug Class(es) Dates Sig (Normalized) Sig (Original) amoxicillin 875 mg oral tablet (1 source) Penicillin-class Antibacterial Start: 08-27-2021 End: 09-03-2021 take 1 tablet by mouth twice daily amoxicillin (AMOXIL) 875 mg tablet Take 1 tablet by mouth twice daily for 7 days. 14 tablet 0 08/27/2021 09/03/2021 Active Comment on above: Take 1 tablet by diana th twice daily for 7 days. atorvastatin 80 mg oral tablet (20 sources) HMG-CoA Reductase Inhibitor Start: 11-13-2024 End: 05-12-2025 take 1 tablet by mouth once daily at bedtime for hyperlipidemia atorvastatin (LIPITOR) 80 mg tablet Indications: Controlled type 2 diabetes mellitus without complication, without long-term current use of insulin ([facility]) , Coronary artery disease involving [place] heart without angina pectoris, unspecified vessel or lesion type Take 1 tablet by mouth daily at bedtime. For cholesterol. 90 tablet 1 11/13/2024 05/12/2025 Active Start: 10-31-2023 End: 12-11-2024 take 1 tablet by mouth twice daily Atorvastatin 40 mg tablet Active 40 mg PO TWICE A DAY December 11, 2024 7:53am cholesterol Start: 10-10-2023 End: 10-31-2023 take 1 tablet by mouth at bedtime Atorvastatin 20 mg t ablet Discontinued 20 mg PO AT BEDTIME 90 3 October 10, 2023 3:36pm October 31, 2023 4:58pm cholesterol Start: 05-02-2023 End: 10-10-2023 take 1 tablet by mouth at bedtime Atorvastatin 40 mg t ablet Discontinued 40 mg PO AT BEDTIME 90 3 May 02, 2023 4:03pm October 10, 2023 3:36pm cholesterol Start: 04-17-2023 End: 11-13-2024 take 1 tablet by mouth once daily at bedtime for hyperlipidemia atorvastatin (LIPITOR) 40 mg tablet Indications: Controlled type 2 diabetes mellitus without complication, without long-term current use of insulin (HCC) Take 1 tablet by mouth daily at bedtime. For cholesterol. 90 tablet 1 03/17/2024 11/13/2024 Discontinued Start: 04-08-2023 End: 05-02-2023 take 2 tablets by mouth at bedtime Atorvastatin 20 mg tablet Discontinued 40 mg PO AT BEDTIME 1 April 08, 2023 10:21am May 02, 2023 4:04pm cholesterol Start: 04-08-2023 End: 05-02-2023 take 40 mg by mouth at bedtime Atorvastatin Discontinu ed 40 MG PO AT BEDTIME April 08, 2023 10:21am May 02, 2023 4:04pm Start: 07-19-2017 End: 04-17-2023 take 1 tablet by mouth at bedtime Atorvastatin 20 mg t ablet Discontinued 20 mg PO AT BEDTIME July 19, 2017 1:00am April 08, 2023 10:21am cholesterol Comment on above: Take 1 tablet by diana th daily at bedtime. For cholesterol. carvedilol 25 mg oral tablet (20 sources) alpha-Adrenergic Maico, beta-Adrenergic Maico Start: End: take 4 tablets by mouth twice daily at mealtime carvedilol (COREG) 6.25 mg tablet Indications: Coronary artery disease involving [place] heart without angina pectoris, unspecified vessel or lesion type Take 4 tablets by mouth two times a day with meals. 720 tablet 0 11/14/2023 11/14/2023 Discontinued Start: 10-10-2023 End: 05-12-2025 take 1 tablet by mouth twice daily at mealtime carvedilol (COREG) 25 mg tablet Indications: Coronary artery disease involving [place] heart without angina pectoris, unspecified vessel or lesion type Take 1 tablet by mouth two times a day with meals. 180 tablet 1 11/13/2024 05/12/2025 Active Start: 08-15-2023 End: 10-10-2023 take 1 tablet by mouth twice daily Carvedilol 12.5 mg tablet Discontinued 12.5 mg PO TWICE A DAY 60 August 15, 2023 9:48am October 10, 2023 3:40pm Start: 04-08-2023 End: 11-14-2023 take 1 tablet by mouth twice daily Carvedilol 6.25 mg tablet Discontinued 6.25 mg PO TWICE A DAY 180 May 02, 2023 4:03pm August 15, 2023 9:48am Comment on above: Take 1 tablet by diana th two times a day with meals. Take 6.25 mg by mout h two times a day with meals. clopidogrel 75 mg oral tablet (8 sources) P2Y12 Platelet Inhibitor Start: 04-05-2024 take 1 tablet by mouth once daily Clopidogrel 75 mg tablet Active 75 mg PO DAILY 90 April 05, 2024 9:53am Start: 12-13-2023 End: 04-05-2024 clopidogrel (PLAVIX) 75 mg t ablet TAKE 4 TABLETS FIRST DAY AND THEN 1 TABLET DAILY 04/05/2024 Active Compression Knee Highs (20 sources) Start: 04-19-2017 End: 11-13-2024 Compression Knee Highs Indic ations: Bilateral lower extremity edema KNEE HIGH COMPRESSION STOCKINGS 30-40 MM. DX: EDEMA 1 Device 2 04/19/2017 11/13/2024 Discontinued Start: 04-19-2017 Compression Kn ee Highs Indications: Bilateral lower extremity edema KNEE HIGH COMPRESSION STOCKINGS 30-40 MM. DX: EDEMA 1 Device 2 04/19/2017 Active Comment on above: KNEE HIGH COMPRESSIO N STOCKINGS 30-40 MM. DX: EDEMA metFORMIN hydrochloride 500 mg oral tablet (20 sources) Biguanide Start: 06-12-19 End: 01-10-20 take 1 tablet by mouth once daily at breakfast metFORMIN (GLUCOPHAGE) 500 mg tablet Indications: Controlled type 2 diabetes mellitus without complication, without long-term current use of insulin (HCC) Take 1 tablet by mouth daily with breakfast. 90 tablet 1 01/09/2025 Active Comment on above: Take 1 tablet by diana th daily with breakfast. Multivitamin (Daily Multi-Vitamin) tablet (8 sources) Start: 05-02-20 Multivitamin (Daily Multi-Vitamin) tablet Active 1 {tbl} PO DAILY May 02, 2023 1:00am Start: 05-02-2023 take 1 tablet by diana th once daily Multivitamin (Daily Multi-Vitamin) tablet Active 1 TABLET PO DAILY May 02, 2023 1:00am Start: 05-02-2023 take 1 tablet by diana th once daily Multivitamin (Daily Multi-Vitamin) tablet Active 1 TABLET PO DAILY May 02, 2023 12:00am Multivitamin capsule (20 sources) take 1 capsule by mo [facility] once daily Multivitamin capsule Take 1 capsule by mouth once daily. Active take 1 capsule by mouth once amish ly Multivitamin capsule Take 1 capsule by mouth once daily. 0 Active Comment on above: Take 1 capsule by mo [facility] once daily. nitroglycerin 0.4 mg sublingual tablet (19 sources) Nitrate Vasodilator Start: 04-17-20 End: 09-28-19 24 nitroglycerin sublingual (NITROSTAT) 0.4 mg SL tablet Dissolve 1 tablet under the tongue every 5 minutes as needed for chest pain. 25 tablet 04/17/2023 Active Comment on above: Dissolve 1 tablet un orlando the tongue every 5 minutes as needed for chest pain. valsartan 320 mg oral tablet (20 sources) Angiotensin 2 Receptor Maico Start: 01-20-20 End: 05-15-20 take 1 tablet by mouth once daily valsartan (DIOVAN) 320 mg tablet Take 1 tablet by mouth once daily. 90 tablet 1 05/15/2024 05/15/2025 Active Comment on above: Take 1 tablet by diana once daily. Completed/Discontinued Medications Medication Drug Class(es) Dates Sig (Normalized) Sig (Original) acetaminophen 325 mg / HYDROcodone bitartrate 5 mg oral tablet (10 sources) Opioid Agonist Start: 03-21-2021 End: 04-06-2023 Hydrocodone-Acetami nophen 1 TABLET tablet Discontinued 1 {tbl} PO EVERY 4 HOURS NEEDED as needed for Pain 10 2 0 March 21, 2021 April 06, 2023 2:08pm Closed nondisplaced fracture of second metacarpal bone of left hand Start: 03-21-2021 End: 04-06-2023 take 1 tablet by mouth every four hours as needed Hydrocodone-Acetaminophen Discontinued 1 TABLET PO EVERY 4 HOURS NEEDED 02 27March 21, 2021 April 06, 2023 1:08pm amoxicillin 875 mg / clavulanate 125 mg oral tablet (20 sources) Penicillin-class Antibacterial Start: 01-05-2021 End: 01-11-2021 Amoxicillin-Pot Clavulanate (Augmentin) 875-125 mg tablet Discontinued 1 {tbl} PO TWICE A DAY January 06, 2021 3:02am January 11, 2021 10:12am infection aspirin 81 mg delayed release oral tablet (9 sources) Platelet Aggregation Inhibitor, Nonsteroidal Anti-inflammatory Drug Start: 04-08-2023 End: 12-11-2024 take 1 tablet by mouth once daily Aspirin 81 mg Tablet,Delayed Release (Dr/Ec) Discontinued 81 mg PO DAILY@0800 1 April 08, 2023 1:00am December 11, 2024 8:33am ciprofloxacin 500 mg oral tablet (10 sources) Quinolone Antimicrobial Start: 01-11-2021 End: 01-25-2021 take 1 tablet by mouth twice daily Ciprofloxacin Hcl (Cipro) 500 mg tablet Discontinued 500 mg PO TWICE A DAY January 11, 2021 12:00am January 25, 2021 8:50am dapagliflozin 10 mg oral tablet (1 source) Sodium-Glucose Cotransporter 2 Inhibitor Start: 10-31-2023 End: 11-28-2023 take 1 tablet by mouth once daily Dapagliflozin Propanediol (Farxiga) 10 mg tablet Discontinued 10 mg PO DAILY 27 04October 31, 2023 12:00am November 28, 2023 4:45pm metroNIDAZOLE 500 mg oral tablet (10 sources) Nitroimidazole Antimicrobial Start: 01-11-2021 End: 01-25-2021 take 1 tablet by mouth every eight hours Metronidazole 500 mg tablet Discontinued 500 mg PO Q8H 30 January 11, 2021 12:00am January 25, 2021 8:51am omeprazole 20 mg delayed release oral capsule (20 sources) Proton Pump Inhibitor Start: 11-11-2021 End: 11-13-2024 take 1 tablet by mouth once daily Omeprazole Magnesium (PRILOSEC OTC) 20 mg tablet Take 1 tablet by mouth once daily. 90 tablet 1 03/17/2024 11/13/2024 Discontinued Start: 03-21-2021 End: 07-08-2025 take 1 capsule by mouth once daily omeprazole (PRILOSEC) 20 mg capsule Take 1 capsule by mouth once daily. 90 capsule 1 11/13/2024 01/09/2025 Discontinued Comment on above: Take 20 mg by mouth once daily. Take 1 tablet by diana th once daily. oxyCODONE hydrochloride 5 mg oral tablet (10 sources) Opioid Agonist Start: End: take 1 tablet by mouth every four hours as needed for pain Oxycodone 5 MG tablet Discontinued 5 mg PO EVERY 4 HOURS NEEDED as needed for Severe Pain () 20 June 19, 2017 1:00am July 19, 2017 10:15am Incisional hernia Incisional hernia without obstruction or gangrene ticagrelor 90 mg oral tablet (20 sources) Start: End: take 1 tablet by mouth twice daily Ticagrelor (Brilinta) 90 mg tablet Discontinued 90 mg PO TWICE A DAY 60 December 07, 2023 9:43am December 13, 2023 9:40am Comment on above: Take 1 tablet by diana th two times a day. Take 90 mg by mouth two times a day. triamcinolone acetonide 40 mg/ml injectable suspension (2 sources) Corticosteroid Start: End: inject 80 mg by intramuscular injection once Kenalog (triamcinolone acetonide) 40 mg/mL suspension for injection Discontinued 80 MG IM ONCE 2 April 12, 2018 9:29am April 12, 2018 10:01am Start: 07-19-2017 End: 07-19-2017 Kenalog (triamcinolone aceto nide) 10 mg/mL suspension for injection Discontinued 2 MG INTRAARTIC ONCE 0.2 July 19, 2017 10:38am July 19, 2017 10:43am Problems Active Problems Problem Classification Problem Date Documented Date Episodic/Chronic Acute and unspecified renal failure (10 sources) Injury of kidney; Translations: [Acute kidney failure, unspecified] 01-19-2021 Episodic Acute myocardial infarction (20 sources) Myocardial infarction; Translations: [Non-ST elevation (NSTEMI) myocardial infarction] Onset: 04-17-2023 04-07-2023 Chronic Congestive heart failure; nonhypertensive (17 sources) Congestive heart failure; Translations: [Unspecified systolic (congestive) heart failure] Onset: 04-17-2023 04-17-2023 Chronic Coronary atherosclerosis and other heart disease (20 sources) Coronary arteriosclerosis; Translations: [Atherosclerotic heart disease of [place] coronary artery without angina pectoris] Onset: 04-17-2023 04-17-2023 Chronic Diabetes mellitus with complications (20 sources) Type 2 diabetes mellitus with mild nonproliferative diabetic retinopathy without macular edema, bilateral; Translations: [Diabetes with ophthalmic manifestations, type II or unspecified type, not stated as uncontrolled] Onset: 04-28-2020 05-20-2020 Chronic Diabetes mellitus without complication (20 sources) Type 2 diabetes mellitus; Translations: [Type 2 diabetes mellitus without complications] Onset: 06-28-2017 06-28-2017 Chronic Comment on above: type 2 Disorders of lipid metabolism (20 sources) Hyperlipidemia; Translations: [Hyperlipidemia, unspecified] Onset: 05-15-2024 05-02-2023 Chronic E Codes: Fall (10 sources) Accidental fall ; Translations: [Unspecified fall, initial encounter] 03-29-2021 Episodic Esophageal disorders (5 sources) Gastroesophageal reflux disease; Translations: [Gastro-esophageal reflux disease without esophagitis] Onset: 11-13-2024 11-13-2024 Chronic Essential hypertension (20 sources) Hypertensive disorder; Translations: [Essential (primary) hypertension] Onset: 08-13-2014 08-13-2014 Chronic Fracture of upper limb (10 sources) Closed fracture of second metacarpal; Translations: [Unspecified fracture of second metacarpal bone, left hand, initial encounter for closed fracture] 03-29-2021 Episodic Hepatitis (20 sources) Nonalcoholic steatohepatitis; Translations: [Nonalcoholic steatohepatitis (RAMOS)] Onset: 08-27-2014 08-27-2014 Chronic Intestinal obstruction without hernia (10 sources) Intestinal obstruction co-occurrent and due to decreased peristalsis; Translations: [Ileus, unspecified] 01-13-2021 Episodic Nonspecific chest pain (1 source) Chest pain; Translations: [Chest pain, unspecified] 04-17-2023 Episodic Other and unspecified benign neoplasm (1 source) Neuroma; Translations: [Benign neoplasm of peripheral nerves and autonomic nervous system, unspecified] 04-27-2023 Episodic Other circulatory disease (2 sources) History of cardiovascular surgery; Translations: [Presence of cardiac and vascular implant and graft, unspecified] 04-17-2023 Chronic Other circulatory disease (4 sources) History of angioplasty; Translations: [Peripheral vascular angioplasty status with implants and grafts] Onset: 03-29-2023 11-13-2024 Chronic Other circulatory disease (1 source) Peripheral vascular angioplasty status with implants and grafts; Translations: [S/P angioplasty with stent] Onset: 11-13-2024 Chronic Other circulatory disease (1 source) Presence of cardiac and vascular implant and graft, unspecified; Translations: [S/P arterial stent] Onset: 05-15-2024 Chronic Other circulatory disease (1 source) Abnormal peripheral pulse; Translations: [Other specified symptoms and signs involving the circulatory and respiratory systems] 04-29-2024 Episodic Other injuries and conditions due to external causes (10 sources) Injury of left shoulder; Translations: [Unspecified injury of left shoulder and upper arm, initial encounter] 03-29-2021 Episodic Other liver diseases (4 sources) Alkaline phosphatase raised; Translations: [Abnormal levels of other serum enzymes] Episodic Other lower respiratory disease (1 source) Persistent cough; Translations: [Persistent cough] Episodic Other nervous system disorders (3 sources) Carpal tunnel syndrome of right wrist; Translations: [Carpal tunnel syndrome, right upper limb] 11-13-2024 Chronic Other nervous system disorders (1 source) Abnormal gait; Translations: [Unsteadiness on feet] Episodic Other nutritional; endocrine; and metabolic disorders (20 sources) Obesity; Translations: [Obesity, unspecified] Onset: 08-13-2014 08-13-2014 Chronic Other nutritional; endocrine; and metabolic disorders (15 sources) Obese class II; Translations: [Obesity, unspecified] Onset: 10-17-2022 10-17-2022 Chronic Other screening for suspected conditions (not mental disorders or infectious disease) (1 source) Patient encounter status; Translations: [Encounter for screening for cardiovascular disorders] Episodic Other skin disorders (1 source) Ingrowing toenail; Translations: [Ingrowing nail] 04-29-2024 Episodic Other upper respiratory disease (1 source) Allergic rhinitis; Translations: [Allergic rhinitis, unspecified] Chronic Other upper respiratory infections (10 sources) Upper respiratory infection; Translations: [Acute upper respiratory infection, unspecified] 12-26-2020 Episodic Otitis media and related conditions (1 source) Acute suppurative otitis media without spontaneous rupture of ear drum; Translations: [Acute suppurative otitis media without spontaneous rupture of ear drum, right ear] Episodic Pancreatic disorders (not diabetes) (20 sources) Pancreatitis; Translations: [Acute pancreatitis without necrosis or infection, unspecified] Episodic Residual codes; unclassified (2 sources) Obstructive sleep apnea (adult) (pediatric); Translations: [Obstructive sleep apnea (adult) (pediatric)] Onset: 12-11-2024 Chronic Residual codes; unclassified (2 sources) Bilateral lower limb edema; Translations: [Localized edema] Episodic Screening and history of mental health and substance abuse codes (2 sources) Tobacco use and exposure - finding; Translations: [Personal history of nicotine dependence] Episodic Spondylosis; intervertebral disc disorders; other back problems (10 sources) Acute low back pain; Translations: [Acute right-sided low back pain] 01-19-2021 Episodic Unclassified (1 source) Obesity, Class II, BMI 35-39.9; Translations: [Obesity, Class II, BMI 35-39.9] Onset: 10-17-2022 Past or Other Problems Problem Classification Problem Date Documented Date Episodic/Chronic Abdominal pain (20 sources) Abdominal pain; Translations: [Unspecified abdominal pain] Onset: 07-31-2014 07-31-2014 Episodic Biliary tract disease (20 sources) Biliary calculus; Translations: [Calculus of gallbladder without cholecystitis without obstruction] Onset: 07-31-2014 07-31-2014 Episodic Coagulation and hemorrhagic disorders (20 sources) Platelet count below reference range; Translations: [Thrombocytopenia, unspecified] Onset: 10-23-2020 Resolved: 10-17-2022 10-23-2020 Chronic Coronary atherosclerosis and other heart disease (20 sources) Stented coronary artery; Translations: [Presence of coronary angioplasty implant and graft] Onset: 04-06-2023 04-14-2023 Episodic Comment on above: 2.75X 26 mm Elizabeth YUKI to OM1: needs staged procedure; 05/11/2023: Onxyx 3.0 X 15 YUKI to proximal LAD Immunizations and screening for infectious disease (5 sources) Vaccination needed; Translations: [Encounter for immunization] Onset: 05-15-2024 Episodic Noninfectious gastroenteritis (20 sources) Colitis; Translations: [Noninfective gastroenteritis and colitis, unspecified] Onset: 03-29-2021 Resolved: 03-29-2021 01-13-2021 Episodic Other circulatory disease (1 source) Other specified symptoms and signs involving the circulatory and respiratory systems; Translations: [Diminished pulses in lower extremity] Onset: 06-05-2024 Episodic Results Test Name Value Interpretation Reference Range Facility Cardiology Visit Reporton Cardiology Visit Report [facility] [address] [place] [address] OFFICE VISIT Date of Service: 12/11/24 MR#: [id number] Acct: [id number] Name: ALISSA CAPPS Rep #: [id number] : 1950 Provider: MOON Almazan Age/Sex: 74/M Location: [facility] Status: Signed HPI HPI History of Present Illness Details: Alissa Capps is a 74-year-old male who presents to office today for follow-up for monitoring his cardiovascular health. He has a history of CAD and IN status post YUKI to the proximal obtuse marginal branch and to the proximal LAD. He presented to [facility] in March 2023 for NSTEMI in the setting of chest pain. His echocardiogram demonstrated an ejection fraction of 45%. He proceeded with heart catheterization that showed left main and mild luminal irregularities, proximal LAD and 80% stenosis, occluded proximal OM1, and RCA with mild luminal irregularities. He underwent stenting to the proximal OM1 with recommendation to proceed with staged intervention to the LAD 4-6 weeks later. He has a history of hypertension and DM2. Upon presentation today, patient reports doing well. He does experience some mild shortness of breath when exertion himself. 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 No recurrence of chest pain. He denies orthopnea. He experiences occasional lightheadedness not directly associated with activity or movement. He reports day-time sleepiness. Further ROS below. BP at home typically runs 132-135/70s-80s. STOP-BANG Assessment: 1. Do you snore? [yes] 2. Are you frequently tired during the day? [no] 3. Have you been observed gasping or choking while asleep? [no] 4. Do you have high blood pressure? [yes] 5. BMI - greater than 35kg/m2? [yes] 6. Age - over 50 years old? [yes] 7. Neck Circumference - greater than 37 cm for females or 40 cm for males? [yes] 8. Gender - male? [yes] Total STOP-BANG score = 6 which indicates high risk for obstructive sleep apnea (yes to 3 or more questions = high risk of sleep apnea). Intake Vital Signs 06/24/24 08:47 12/11/24 07:15 Height 5 ft 10 in 5 ft 10 in Weight: 252 lb 250 lb BMI 36.1 35.9 BP 132/79 H 135/68 H Blood Pressure Location Lt brachial Lt brachial Position Sitting Sitting Respiration 16 20 H Pulse 68 64 Pulse Source NIBP Monitor Pulse Oximetry (%) 94 Intake Visit Reasons: 6 M Paper Feeder Required: No Is patient in pain?: No Allergies chlorhexidine Allergy (Mild, Verified 12/11/24 07:56) HIVES Medications ???Medication ???Instructions ???Recorded ???Confirmed ???Type omeprazole 20 mg capsule,delayed 20 mg PO DAILY 03/21/21 12/11/24 H istory release metformin 500 mg tablet 500 mg PO DAILY diabetes #1 TAB 12/11/24 Rx multivitamin (Daily Multi-Vitamin 1 tab PO DAILY 05/02/23 12/11/24 History tablet) nitroglycerin 0.4 mg sublingual 0.4 mg sublingual Q5-15M PRN chest 09/28/23 12/11/24 Rx tablet pain #30 tabs valsartan 320 mg tablet 320 mg PO DAILY #90 tabs 12/20/23 12/11/24 Rx carvedilol 25 mg tablet 25 mg PO BID #60 tabs 03/18/24 Rx clopidogrel 75 mg tablet 75 mg PO DAILY #90 tabs 04/05/24 0 12/11/24 Rx atorvastatin 40 mg tablet 40 mg PO BID cholesterol 12/11/24 12/11/24 History Ejection fraction %: 40 Have you fallen in the past year?: No PFSH Medical History (Updated 12/11/24 @ 09:01 by MOON Almazan) Acute right-sided low back pain Ischemic cardiomyopathy Atherosclerotic heart disease of [place] coronary artery without angina pectoris Non-STEMI (non-ST elevated myocardial infarction) CARLA (acute kidney injury) Pancreatitis Pancreatitis, acute Wears hearing aid in both ears Alcohol abuse URI (upper respiratory infection) Former smoker Hypertension Diabetes Surgical History Stented coronary artery (05/11/23) History of cholecystectomy S/P carpal tunnel release S/P hernia repair S/P cholecystectomy Family History Father Diabetes Mother Hypertension Social History household members: spouse housing: house Smoking Status: Former smoker how long ago did patient quit smokin years ago alcohol intake: current alcohol intake frequency: a few times a month Alcohol type: beer and wine substance use type: does not use caffeine: Yes (Occasionally) Type: tea ROS Const Const: Positive for fatigue; Negative for weakness, headache(s) or frequent falls Eyes Eyes: Negative for blurry vision ENT ENT: Negative for headache(s), dizziness or Nosebleed/epistaxis Cardio Chest Pain: No Palpitations: No Edema: N (more content not included)... Normal [facility] 11-13-2024 [facility] Office Visit (FAMPWS ) ALISSA CAPPS ([id number]) 1950 [place] Date Time Provider Department 11/13/24 7:20 AM SON RAMIREZPKETAN During your visit today, we recorded the following information about you: Pulse Blood pressure Weight Height 72/minute 130/62 114.4 kg 1.753 m Son Ramirez MD 11/13/2024 7:52 AM Signed Chief Complaint Patient presents with: 6 Month Exam Recording using AT[employer] Access software for draft documentation of the visit was discussed with the patient/authorized account service representative; all questions welcomed and answered. Patient/authorized account service representative agreed to proceed HPI Alissa Capps is a 74 year old male who [...] showed no retinopathy. 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 Coronary Artery Disease: - Last cardiology visit at [facility] in May; next appointment scheduled for November. [...] lab work showed a slight decrease in aPtricia's protein levels from 6.3 to 6.0 g/dL. Shoulder Pain: - Mild shoulder soreness attributed to lifting activities. Past medical history, appointments, medications, allergies reviewed. Previous Medical History PAST MEDICAL HISTORY Diagnosis Date CAD (coronary artery disease) Carpal tunnel syndrome on right s/p surgical correction CHF (congestive heart failure) ([facility]) 04/17/2023 EF 45% Chronic left shoulder pain 20+ years, ran over by a sow Diabetes mellitus type II, controlled (HCC) Fatty liver 05/02/2022 on US GERD (gastroesophageal reflux disease) HTN (hypertension) Mild nonproliferative diabetic retinopathy of both eyes without macular edema associated with type 2 diabetes mellitus (HCC) 04/2020 Obesity S/P angioplasty with stent 03/2023 YUKI to obtuse marginal branch Thrombocytopenia Previous Surgical History PAST SURGICAL HISTORY Procedure Laterality Date CARPAL TUNNEL right COLONOSCOPY 2015 COLONOSCOPY FLX DX W/COLLJ SPEC WHEN [...] Review of Symptoms REVIEW OF SYSTEMS GENERAL: N (more content not included)... Normal [facility] ALBUMIN/CREATININE RATIO, UR INEon 11-12-2024 Albumin DL <= 20 mg/L (U) [Mass/Vol] 117.3 mg/L Normal [facility] Comment on above: Order Comment: Speci men Type: BLOOD SPECIMEN [facility] Facility: [facility] Address: [address] [place], [place] [address] Performed By: #### 5 7021-8 #### [facility] CLIA [id number] [address] [place] [address] [place] Albumin/Creatinine (U) [Mass ratio] 87 mg/g High <30 [facility] Comment on above: Order Comment: Speci men Type: BLOOD SPECIMEN [facility]ing Facility: [facility] Address: [address] [place] [address] Result Comment: Adul t Male and Female Nephrotic Criteria: <30 mg/g is considered normal to mildly increased 30-300 mg/g is considered moderately increased >300 mg/g is considered severely increased KDIGO. (2013). KDIGO 2012 Clinical Practice Guideline for the Evaluation and Management of Chronic Kidney Disease. Official Journal of the International Society of Nephrology, 3(1), 1-150. Performed By: #### 5 7021-8 #### [id number] [address] [place] [address] [place] Creatinine (U) [Mass/Vol] 135.3 mg/dL Normal 20.0-300.0 [facility] Comment on above: Order Comment: Speci men Type: BLOOD SPECIMEN [facility]ing [facility]: [facility] Address: [address] [place], [place] [address] Performed By: #### 5 7021-8 #### [facility] CLIA [id number] [address] [place] [address] [place] CBC W Auto Differential pane l (Bld)on 11-12-2024 Basophils (Bld) [#/Vol] 0.04 10*3/uL Normal <0.11 [facility] Comment on above: Order Comment: Speci men Type: BLOOD SPECIMEN Ordering Facility: [facility] Address: [address] [place] [address] Performed By: #### 5 7021-8 #### [facility] CLIA [id number] [address] [place] [address] [place] Basophils/100 WBC (Bld) 0.7 % Normal [facility] Comment on above: Order Comment: Speci men Type: BLOOD SPECIMEN [facility]ing [facility]: [facility] Address: [address] [place] [address] Performed By: #### 5 7021-8 #### [facility] CLIA [id number] [address] [place] [address] [place] Differential cell count method Nom (Bld) Auto Normal [facility] Comment on above: Order Comment: Speci men Type: BLOOD SPECIMEN [facility] Address: [address] [place] [address] Performed By: #### 5 7021-8 #### [facility] CLIA [id number] [address] [place] [address] [place] Eosinophils (Bld) [#/Vol] 0.15 10*3/uL Normal <0.46 [facility] Comment on above: Order Comment: Speci men Type: BLOOD SPECIMEN [facility] Address: [address] [place] [address] Performed By: #### 5 7021-8 #### [facility] CLIA [id number] [address] [place] [address] [place] Eosinophils/100 WBC (Bld) 2.6 % Normal [facility] Comment on above: Order Comment: Speci men Type: BLOOD SPECIMEN [facility]ing [facility]: [facility] Address: [address] [place] [address] Performed By: #### 5 7021-8 #### [facility] CLIA [id number] [address] [place] [address] [place] Erythrocyte distribution width (RBC) [Ratio] 12.3 % Normal 11.5-15.0 [facility] Comment on above: Order Comment: Speci men Type: BLOOD SPECIMEN [facility]ing [facility] Address: [address] [place] [address] Performed By: #### 5 7021-8 #### [facility] CLIA [id number] [address] [place] [address] [place] Hematocrit (Bld) [Volume fraction] 43.3 % Normal 39.0-51.0 [facility] Comment on above: Order Comment: Speci men Type: BLOOD SPECIMEN [facility]ing [facility] Address: [address] [place] [address] Performed By: #### 5 7021-8 #### [facility] CLIA [id number] [address] [place] [address] [place] Hemoglobin (Bld) [Mass/Vol] 15.1 g/dL Normal 13.0-17.0 [facility] Comment on above: Order Comment: Speci men Type: BLOOD SPECIMEN Ordering Facility: [facility] Address: [address] [place] [address] Performed By: #### 5 7021-8 #### [facility] CLIA [id number] [address] [place] [address] [place] Immature granulocytes (Bld) [#/Vol] 10*3/uL Normal <0.10 [facility] Comment on above: Order Comment: Speci men Type: BLOOD SPECIMEN Ordering Facility: [facility] Address: [address] [place] [address] Performed By: #### 5 7021-8 #### [facility] CLIA [id number] [address] [place] [address] [place] Immature granulocytes/100 WBC (Bld) 0.2 % Normal [facility] Comment on above: Order Comment: Speci men Type: BLOOD SPECIMEN Ordering Facility: [facility] Address: [address] [place] [address] Performed By: #### 5 7021-8 #### [facility] CLIA [id number] [address] [place] [address] [place] Lymphocytes (Bld) [#/Vol] 1.88 10*3/uL Normal 1.00-4.00 [facility] Comment on above: Order Comment: Speci men Type: BLOOD SPECIMEN [facility] Address: [address] [place] [address] Performed By: #### 5 7021-8 #### [facility] CLIA [id number] [address] [place] [address] [place] Lymphocytes/100 WBC (Bld) 32.5 % Normal [facility] Comment on above: Order Comment: Speci men Type: BLOOD SPECIMEN [facility] Address: [address] [place] [address] Performed By: #### 5 7021-8 #### [facility] CLIA [id number] [address] [place] [address] [place] MCH (RBC) [Entitic mass] 30.6 pg Normal 26.0-34.0 [facility] Comment on above: Order Comment: Speci men Type: BLOOD SPECIMEN [facility] Address: [address] [place] [address] Performed By: #### 5 7021-8 #### [facility] CLIA [id number] [address] [place] [address] [place] MCHC (RBC) [Mass/Vol] 34.9 g/dL Normal 30.5-36.0 [facility] Comment on above: Order Comment: Speci men Type: BLOOD SPECIMEN [facility] Address: [address] [place] [address] Performed By: #### 5 7021-8 #### [facility] CLIA [id number] [address] [place] [address] [place] MCV (RBC) [Entitic vol] 87.8 fL Normal 80.0-100.0 [facility] Comment on above: Order Comment: Speci men Type: BLOOD SPECIMEN [facility] Address: [address] [place] [address] Performed By: #### 5 7021-8 #### [facility] CLIA [id number] [address] [place] [address] [place] Monocytes (Bld) [#/Vol] 0.65 10*3/uL Normal <0.87 [facility] Comment on above: Order Comment: Speci men Type: BLOOD SPECIMEN [facility] Address: [address] [place] [address] Performed By: #### 5 7021-8 #### [facility] CLIA [id number] [address] [place] [address] [place] Monocytes/100 WBC (Bld) 11.2 % Normal [facility] Comment on above: Order Comment: Speci men Type: BLOOD SPECIMEN [facility] Address: [address] [place] [address] Performed By: #### 5 7021-8 #### [facility] CLIA [id number] [address] [place] [address] [place] Neutrophils (Bld) [#/Vol] 3.05 10*3/uL Normal 1.45-7.50 [facility] Comment on above: Order Comment: Speci men Type: BLOOD SPECIMEN [facility] Address: [address] [place] [address] Performed By: #### 5 7021-8 #### [facility] CLIA [id number] [address] [place] [address] [place] Neutrophils/100 WBC (Bld) 52.8 % Normal [facility] Comment on above: Order Comment: Speci men Type: BLOOD SPECIMEN [facility] Address: [address] [place] [address] Performed By: #### 5 7021-8 #### [facility] CLIA [id number] [address] [place] [address] [place] Nucleated RBC (Bld) [#/Vol] 10*3/uL Normal <0.01 [facility] Comment on above: Order Comment: Speci men Type: BLOOD SPECIMEN Order[facility] Address: [address] [place] [address] Performed By: #### 5 7021-8 #### [facility] CLIA [id number] [address] [place] [address] [place] Nucleated RBC/100 WBC (Bld) [Ratio] 0.0 /100 WBC Normal [facility] Comment on above: Order Comment: Speci men Type: BLOOD SPECIMEN Order[facility] Address: [address] [place] [address] Performed By: #### 5 7021-8 #### [facility] CLIA [id number] [address] [place] [address] [place] Platelet mean volume (Bld) [Entitic vol] 9.8 fL Normal 9.0-12.7 [facility] Comment on above: Order Comment: Speci men Type: BLOOD SPECIMEN Order[facility] Address: [address] [place] [address] Performed By: #### 5 7021-8 #### [facility] CLIA [id number] [address] [place] [address] [place] Platelets (Bld) [#/Vol] 159 10*3/uL Normal 150-400 [facility] Comment on above: Order Comment: Speci men Type: BLOOD SPECIMEN [facility] Address: [address] [place] [address] Performed By: #### 5 7021-8 #### [facility] CLIA [id number] [address] [place] [address] [place] RBC (Bld) [#/Vol] 4.93 10*6/uL Normal 4.20-6.00 [facility] Comment on above: Order Comment: Speci men Type: BLOOD SPECIMEN [facility] Address: [address] [place] [address] Performed By: #### 5 7021-8 #### [facility] CLIA [id number] [address] [place] [address] [place] WBC (Bld) [#/Vol] 5.78 10*3/uL Normal 3.70-11.00 [facility] Comment on above: Order Comment: Speci men Type: BLOOD SPECIMEN [facility] Address: [address] [place] [address] Performed By: #### 5 7021-8 #### [facility] CLIA [id number] [address] [place] [address] [place] Comprehensive metabolic 2000 panelon 11-12-2024 Albumin [Mass/Vol] 3.9 g/dL Normal 3.9-4.9 [facility] Comment on above: Order Comment: Speci men Type: BLOOD SPECIMEN [facility] Address: [address] [place] [address] Performed By: #### 2 4323-8 #### [facility] CLIA [id number] [address] [place] [address] [place] ALP [Catalytic activity/Vol] 102 U/L Normal 38-113 [facility] Comment on above: Order Comment: Speci men Type: BLOOD SPECIMEN [facility] Address: [address] [place] [address] Performed By: #### 2 4323-8 #### [facility] CLIA [id number] [address] [place] [address] [place] ALT [Catalytic activity/Vol] 17 U/L Normal 10-54 [facility] Comment on above: Order Comment: Speci men Type: BLOOD SPECIMEN [facility] Address: [address] [place] [address] Performed By: #### 2 4323-8 #### [facility] CLIA [id number] [address] [place] [address] [place] Anion gap [Moles/Vol] 8 mmol/L Normal 8-15 [facility] Comment on above: Order Comment: Speci men Type: BLOOD SPECIMEN [facility] Address: [address] [place] [address] Performed By: #### 2 4323-8 #### [facility] CLIA [id number] [address] [place] [address] [place] AST [Catalytic activity/Vol] 15 U/L Normal 14-40 [facility] Comment on above: Order Comment: Speci men Type: BLOOD SPECIMEN [facility] Address: [address] [place] [address] Performed By: #### 2 4323-8 #### [facility] CLIA [id number] [address] [place] [address] [place] Bilirubin [Mass/Vol] 0.9 mg/dL Normal 0.2-1.3 [facility] Comment on above: Order Comment: Speci men Type: BLOOD SPECIMEN [facility] Address: [address] [place] [address] Performed By: #### 2 4323-8 #### [facility] CLIA [id number] [address] [place] [address] [place] Calcium [Mass/Vol] 8.5 mg/dL Normal 8.5-10.2 [facility] Comment on above: Order Comment: Speci men Type: BLOOD SPECIMEN [facility] Address: [address] [place] [address] Performed By: #### 2 4323-8 #### [facility] CLIA [id number] [address] [place] [address] [place] Chloride [Moles/Vol] 107 mmol/L Normal 98-107 [facility] Comment on above: Order Comment: Speci men Type: BLOOD SPECIMEN [facility] Address: [address] [place] [address] Performed By: #### 2 4323-8 #### [facility] CLIA [id number] [address] [place] [address] [place] CO2 [Moles/Vol] 22 mmol/L Normal 22-30 [facility] Comment on above: Order Comment: Speci men Type: BLOOD SPECIMEN [facility] Address: [address] [place] [address] Performed By: #### 2 4323-8 #### [facility] CLIA [id number] [address] [place] [address] [place] Creatinine [Mass/Vol] 0.92 mg/dL Normal 0.73-1.22 [facility] Comment on above: Order Comment: Speci men Type: BLOOD SPECIMEN [facility] Address: [address] [place] [address] Performed By: #### 2 4323-8 #### [facility] CLIA [id number] [address] [place] [address] [place] Creatinine and Glomerular filtration rate.predicted panel (S/P/Bld) 88 mL/min/1.73m??? Normal >=60 [facility] Comment on above: Order Comment: Speci men Type: BLOOD SPECIMEN [facility] Address: [address] [place], [place] [address] Result Comment: Taylor mated Glomerular Filtration Rate (eGFR) is calculated using the 2020 CKD-EPI creatinine equation. This equation utilizes serum creatinine, sex, and age as parameters. The creatinine assay has traceable calibration to isotope dilution-mass spectrometry. Refer to KDIGO guidelines for clinical interpretation. In patients with unstable renal function, e.g. those with acute kidney injury, the eGFR may not accurately reflect actual GFR. Performed By: #### 2 4323-8 #### [facility] CLIA [id number] [address] [place] [address] [place] Glucose [Mass/Vol] 136 mg/dL High 74-99 [facility] Comment on above: Order Comment: Becky almazan Type: BLOOD SPECIMEN [facility] Address: [address] [place], [place] [address] Result Comment: The [place] Diabetes Association (ADA) provides guidance for cutoff [...] Standards of Medical Care in Diabetes 2016, [place] Diabetes Association. Diabetes Care. 2016.39(Suppl 1). Performed By: #### 2 4323-8 #### [facility] CLIA [id number] [address] [place] [address] [place] Potassium [Moles/Vol] 4.1 mmol/L Normal 3.7-5.1 [facility] Comment on above: Order Comment: Becky almazan Type: BLOOD SPECIMEN [facility] Address: [address] [place] [address] Performed By: #### 2 4323-8 #### [facility] CLIA [id number] [address] [place] [address] [place] Protein [Mass/Vol] 6.0 g/dL Low 6.3-8.0 [facility] Comment on above: Order Comment: Speci men Type: BLOOD SPECIMEN [facility] Address: [address] [place] [address] Performed By: #### 2 4323-8 #### [facility] CLIA [id number] [address] [place] [address] [place] Sodium [Moles/Vol] 137 mmol/L Normal 136-144 [facility] Comment on above: Order Comment: Speci men Type: BLOOD SPECIMEN [facility] Address: [address] [place] [address] Performed By: #### 2 4323-8 #### [facility] CLIA [id number] [address] [place] [address] [place] Urea nitrogen [Mass/Vol] 17 mg/dL Normal 9-24 [facility] Comment on above: Order Comment: Speci men Type: BLOOD SPECIMEN [facility] Address: [address] [place] [address] Performed By: #### 2 4323-8 #### [id number] [address] [place] [address] [place] HbA1c (Bld)on 11-12-2024 Average glucose Estimated from glycated hemoglobin (Bld) [Mass/Vol] 137 mg/dL Normal [facility] Comment on above: Order Comment: Speci men Type: BLOOD SPECIMEN [facility]: [facility] Address: [address] [place] [address] Result Comment: eAG: (Estimated average glucose) is a calculated value from HgbA1c and is account service representative of the average blood glucose level in the last 2-3 month period. Performed By: #### 5 7021-8 #### [facility] CLIA [id number] [address] [place] [address] [place] HbA1c (Bld) [Mass fraction] 6.4 % High 4.3-5.6 [facility] Comment on above: Order Comment: Speci men Type: BLOOD SPECIMEN [facility] Address: [address] [place] [address] Result Comment: [place] Diabetes Association guidelines indicate that patients with HgbA1c in the range 5.7-6.4% are at increased risk for development of diabetes, and intervention by lifestyle modification may be beneficial. HgbA1c greater or equal to 6.5% is considered diagnostic of diabetes. Performed By: #### 5 7021-8 #### [facility] CLIA [id number] [address] [place] [address] [place] Lipid 1996 panelon 5 Cholesterol [Mass/Vol] 130 mg/dL Normal <200 [facility] Comment on above: Order Comment: Becky almazan Type: BLOOD SPECIMEN [facility] Address: [address] [place] [address] Result Comment: <200 mg/dL, Desirable 200-239 mg/dL, Borderline high >239 mg/dL, High Performed By: #### 5 7021-8 #### [facility] CLIA [id number] [address] [place] [address] [place] Cholesterol in HDL [Mass/Vol] 37 mg/dL Low >39 [facility] Comment on above: Order Comment: Becky almazan Type: BLOOD SPECIMEN [facility] Address: [address] [place] [address] Result Comment: 40-5 9 mg/dL, Acceptable >59 mg/dL, High: Negative risk factor for coronary heart disease <40 mg/dL, Low: Positive risk factor for coronary heart disease Performed By: #### 5 7021-8 #### [facility] CLIA [id number] [address] [place] [address] [place] Cholesterol in LDL [Mass/Vol] 79 mg/dL Normal <100 [facility] Comment on above: Order Comment: Светланаi men Type: BLOOD SPECIMEN [facility] Address: [address] [place] [address] Result Comment: <100 mg/dL, Optimal 100-129 mg/dL, Near optimal/above optimal 130-159 mg/dL, Borderline high 160-189 mg/dL, High >189 mg/dL, Very high Secondary prevention optimal LDL Cholesterol levels are recommended to be <70 mg/dL LDL cholesterol is calculated using the Olguin-NIH equation. Performed By: #### 5 7021-8 #### [facility] [id number] [address] [place] [address] [place] Cholesterol in LDL/Cholesterol in HDL [Mass ratio] 2.14 {ratio} Normal <2.54 [facility] Comment on above: Order Comment: Becky almazan Type: BLOOD SPECIMEN Ordering Facility: [facility] Address: [address] [place] [address] Result Comment: Abhinav christie: 1. National Cholesterol Education Program ATP III Guideline At-A-Glance Quick Desk Reference: National Heart, Lung, and Blood Cost. National Institutes of Health. 2001: NIH Publication No. 01-3305. 2. An International Atherosclerosis Society position paper: global recommendations for the management of dyslipidemia: executive summary, Atherosclerosis. 2014: 232(2):410-413. Performed By: #### 5 7021-8 #### [facility] [id number] [address] [place] [address] [place] Cholesterol in VLDL [Mass/Vol] 11 mg/dL Normal <30 [facility] Comment on above: Order Comment: Becky almazan Type: BLOOD SPECIMEN [facility] Address: [address] [place] [address] Performed By: #### 5 7021-8 #### [facility] [id number] [address] [place] [address] [place] Cholesterol non HDL [Mass/Vol] 93 mg/dL Normal <130 [facility] Comment on above: Order Comment: Becky almazan Type: BLOOD SPECIMEN [facility] Address: [address] [place] [address] Result Comment: <130 mg/dL, Optimal 130-159 mg/dL, Near optimal/above optimal 160-189 mg/dL, Borderline high 190-219 mg/dL, High >219 mg/dL, Very high Secondary prevention optimal non HDL Cholesterol levels are recommended to be <100 mg/dL Performed By: #### 5 7021-8 #### [facility] CLIA [id number] [address] [place] [address] [place] Cholesterol.total/Chol esterol in HDL [Mass ratio] 3.51 {ratio} Normal <5.10 [facility] Comment on above: Order Comment: Speci men Type: BLOOD SPECIMEN [facility] Address: [facility] [place] [id number] Performed By: #### 5 7021-8 #### [facility] CLIA [id number] [address] [place] [address] FASTING TIME 12 hrs Normal [facility] Comment on above: Order Comment: Светланаi men Type: BLOOD SPECIMEN [facility] Address: [address] [place] [id number] Performed By: #### 5 7021-8 #### [facility] [id number] [address] [place] [address] Triglyceride [Mass/Vol] 71 mg/dL Normal <150 [facility] Comment on above: Order Comment: Светланаi men Type: BLOOD SPECIMEN [facility] Address: [address] [place] [address] Result Comment: <150 mg/dL, Normal 150-199 mg/dL, Borderline high 200-499 mg/dL, High >499 mg/dL, Very high Performed By: #### 5 7021-8 #### [facility] CLIA [id number] [address] [place] [address] [place] Cardiology Visit Reporton Cardiology Visit Report [facility] [address] [place] [address] OFFICE VISIT Date of Service: 06/24/24 MR#: [id number] Acct: [id number] Name: ALISSA CAPPS Rep #: [id number] : 1950 Provider: Dr. Tino Garcia MD Age/Sex: 73/M Location: [facility] Status: Signed HPI HPI History of Present Illness Details: This gentleman with history of CAD and IN status post YUKI to the proximal high obtuse marginal branch and to the proximal LAD is here for follow-up visit. Denies any complaints. Denies any angina. No shortness of breath. No palpitations. No orthopnea or PND. Occasional lower extremity edema. Intake Vital Signs 12/13/23 09:08 06/24/24 08:47 Height 5 ft 10 in 5 ft 10 in Weight: 232 lb 252 lb BMI 33.3 36.1 BP 143/77 H 132/79 H Blood Pressure Location Lt brachial Lt brachial Position Sitting Sitting Respiration 18 16 Pulse 65 68 Pulse Source Monitor NIBP Intake Visit Reasons: 6 M FU Paper Feeder Required: No Accompanied by: Is patient in pain?: No Allergies chlorhexidine Allergy (Mild, Verified 06/24/24 14:10) HIVES Medications ???Medication ???Instructions ???Recorded ???Confirmed ???Type omeprazole 20 mg capsule,delayed 20 mg PO DAILY 03/21/21 06/24/24 History release aspirin 81 mg tablet,delayed 81 mg PO DAILY@0800 #1 TAB 04/08/23 06/24/24 Rx release metformin 500 mg tablet 500 mg PO DAILY diabetes #1 TAB 04/08/23 06/24/24 Rx multivitamin (Daily Multi-Vitamin 1 tab PO DAILY 05/02/23 06/24/24 History tablet) nitroglycerin 0.4 mg sublingual 0.4 mg sublingual Q5-15M PRN chest 09/28/23 06/24/24 Rx tablet pain #30 tabs atorvastatin 40 mg tablet 40 mg PO QHS cholesterol #90 tabs 10/31/23 06/24/24 Rx valsartan 320 mg tablet 320 mg PO DAILY #90 tabs 12/20/23 06/24/24 Rx carvedilol 25 mg tablet 25 mg PO BID #60 tabs 10/21/24 01/27/25 Rx clopidogrel 75 mg tablet 75 mg PO DAILY #90 tabs 04/05/24 06/24/24 Rx Ejection fraction %: 40 Have you fallen in the past year?: No PFSH Medical History Acute right-sided low back pain CARLA (acute kidney injury) Alcohol abuse Atherosclerotic heart disease of [place] coronary artery without angina pectoris Diabetes Former smoker Hyperlipidemia Hypertension Ischemic cardiomyopathy Non-STEMI (non-ST elevated myocardial infarction) Pancreatitis Pancreatitis, acute URI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 4.6-6.2 [facility] Blood hemoglobin measurement (mass/volume)Ordered By: Albin Leon on 05-02-2023 Hemoglobin (Bld) [Mass/Vol] 15.1 g/dL 13.0-16.5 [facility] Blood lymphocytes/100 leukoc ytesOrdered By: Albin Leon on 05-02-2023 Lymphocytes/100 WBC (Bld) 27.8 % 19-41 [facility] Blood monocytes/100 leukocyt esOrdered By: Albin Leon on 05-02-2023 Monocytes/100 WBC (Bld) 11.5 % 0-10 [facility] Blood platelet mean volumeOr dered By: Albin Leon on 05-02-2023 Platelet mean volume (Bld) [Entitic vol] 9.5 fL 6.2-12.0 [facility] Determination of erythrocyte mean corpuscular volume (MCV)Ordered By: Albin Leon on 05-02-2023 MCV (RBC) [Entitic vol] 90.1 fL 80-94 [facility] Hematocrit Auto (Bld) [Volum e fraction]Ordered By: Albin Leon on 05-02-2023 Hematocrit (Bld) [Volume fraction] 44.5 % 40-54 [facility] Laboratory - Chemistry and C hemistry - challengeOrdered By: Albin Leon on 05-02-2023 CO2 [Moles/Vol] 27.0 mmol/L 21.0-32.0 [facility] Urea nitrogen/Creatinine [Mass ratio] 14.8 mg/mg 10-20 [facility] Laboratory - Hematology and Cell countsOrdered By: Albin Leon on 05-02-2023 Erythrocyte distribution width (RBC) [Entitic vol] 41.4 fL 35.1-43.9 [facility] Erythrocyte distribution width (RBC) [Ratio] 12.6 % 11.6-14.6 [facility] Immature granulocytes/100 WBC (Bld) 0.300 % 0.0-0.9 [facility] Comment on above: IG% - Immature Granu locytes (promyelocytes, myelocytes and metamyelocytes) > 1% indicates that a LEFT SHIFT is Present. MCH (RBC) [Entitic mass] 30.6 pg 27.0-32.0 [facility] Nucleated RBC/100 WBC (Bld) [Ratio] 0 % 0-5 [facility] ([facility]) [Mass/Vol]Or dered By: Albin Leon on 05-02-2023 MCHC (RBC) [Mass/Vol] 33.9 g/dL 32-36 [facility] No Panel InformationOrdered By: Albin Leon on 05-02-2023 Estimated GFR (MDRD) Amer 75 mL/min >60 [facility] Comment on above: GFR Calc Estimated GFR (MDRD) Non-Af Amer 62 mL/min >60 [facility] Comment on above: Non- GFR Calc Platelets bldOrdered By: Ludin Leon on 05-02-2023 Platelets (Bld) [#/Vol] 173 10*3/uL 150-450 [facility] Serum or plasma calcium osei urement (mass/volume)Ordered By: Albin Leon on 05-02-2023 Calcium [Mass/Vol] 8.9 mg/dL 8.5-10.1 [facility] Serum or plasma creatinine m easurement (mass/volume)Ordered By: Albin Leon on 05-02-2023 Creatinine [Mass/Vol] 1.22 mg/dL 0.70-1.30 [facility] Comment on above: The validity of the calculated GFR & GFRAA in patients over 70 years has not been determined. Clinical correlation is essential. Serum or plasma urea nitroge n measurement (mass/volume)Ordered By: Albin Leon on 05-02-2023 Urea nitrogen [Mass/Vol] 18 mg/dL 7-18 [facility] Thin prep Papanicolaou smear with manual screeningOrdered By: Albin Leon on 05-02-2023 Thin prep Papanicolaou smear with manual screening 2 5-15 [facility] ALBUMIN/CREAT RATIO RND URon 04-17-2023 Albumin DL <= 20 mg/L (U) [Mass/Vol] 66.4 mg/L [facility] Albumin/Creatinine (U) [Mass ratio] 46 mg/g High <30 mg/g [facility] Creatinine (U) [Mass/Vol] 144.6 mg/dL 20.0 - 300.0 mg/dL [facility] Comprehensive metabolic 2000 panelon 04-17-2023 Albumin [Mass/Vol] 3.7 g/dL Low 3.9 - 4.9 g/dL [facility] ALP [Catalytic activity/Vol] 133 U/L High 38 - 113 U/L [facility] ALT [Catalytic activity/Vol] 17 U/L 10 - 54 U/L [facility] Anion gap [Moles/Vol] 9 mmol/L 9 - 18 mmol/L [facility] AST [Catalytic activity/Vol] 15 U/L 14 - 40 U/L [facility] Bilirubin [Mass/Vol] 0.6 mg/dL 0.2 - 1 .3 mg/dL [facility] Calcium [Mass/Vol] 9.6 mg/dL 8.5 - 10. 2 mg/dL [facility] Chloride [Moles/Vol] 106 mmol/L High 97 - 10 5 mmol/L [facility] CO2 [Moles/Vol] 24 mmol/L 22 - 30 mmol/L [facility] Creatinine [Mass/Vol] 1.21 mg/dL 0.73 - 1.22 mg/dL [facility] Estimated Glomerular Filtration Rate 64 mL/min/1.73m >=60 mL/min/1.73m [facility] Glucose [Mass/Vol] 133 mg/dL High 74 - 99 mg/dL [facility] Potassium [Moles/Vol] 4.3 mmol/L 3.7 - 5.1 mmol/L [facility] Protein [Mass/Vol] 6.9 g/dL 6.3 - 8.0 g/dL [facility] Sodium [Moles/Vol] 139 mmol/L 136 - 144 mmol/L [facility] Urea nitrogen [Mass/Vol] 19 mg/dL 9 - 24 mg/dL [facility] HbA1c (Bld)on 04-17-2023 Average glucose Estimated from glycated hemoglobin (Bld) [Mass/Vol] 143 mg/dL [facility] HbA1c (Bld) [Mass fraction] 6.6 % High 4.3 - 5.6 % [facility] Glucose Glucometer (BldC) [M ass/Vol]Ordered By: Dion Sabillon on 04-08-2023 Glucose [Mass/Vol] 146 mg/dL 74-106 [facility] Comment on above: MANAGEMENT OF PATIEN T CARE PER NURSING PROTOCOL Absolute lymphocyte countOrd ered By: Jf Thompsontsonis on 04-07-2023 Lymphocytes Auto (Unsp spec) [#/Vol] 1.59 10*3/uL 0.83-4.51 [facility] Basophil percentageOrdered B y: fJ Paloma on 04-07-2023 Basophils/100 WBC (Bld) 0.4 % 0-1 [facility] Eosinophils/100 WBC (Bld) 1.1 % 0-5 [facility] Neutrophils (Bld) [#/Vol] 8.2 10*3/uL 2.0-7.7 [facility] Neutrophils/100 WBC (Bld) 73.3 % 47-70 [facility] WBC (Bld) [#/Vol] 11.1 10*3/uL 4.4-11.0 [facility] Basophil percentageOrdered B y: Indu Ayde on 04-07-2023 Bilirubin [Mass/Vol] 0.80 mg/dL 0.20-1.00 [facility] Comment on above: For patients on eltr ombopag therapy, use of [employer] Mark TBIL is not recommended. Chloride [Moles/Vol] 106 mmol/L 98-107 [facility] Glucose [Mass/Vol] 157 mg/dL 74-106 [facility] Comment on above: Fasting Glucose resu lt greater than or equal to 126 mg/dL suggests DIABETES MELLITUS per A.D.A. criteria. Potassium [Moles/Vol] 3.9 mmol/L 3.5-5.1 [facility] Protein [Mass/Vol] 6.9 g/dL 6.4-8.2 [facility] Sodium [Moles/Vol] 138 mmol/L 136-145 [facility] Blood erythrocytes count (nu mber/volume)Ordered By: Jf Dow on 04-07-2023 RBC (Bld) [#/Vol] 5.20 10*6/uL 4.6-6.2 [facility] Blood hemoglobin measurement (mass/volume)Ordered By: Jf Dow on 04-07-2023 Hemoglobin (Bld) [Mass/Vol] 15.7 g/dL 13.0-16.5 [facility] Blood lymphocytes/100 leukoc ytesOrdered By: Jf Dow on 04-07-2023 Lymphocytes/100 WBC (Bld) 14.3 % 19-41 [facility] Blood monocytes/100 leukocyt esOrdered By: Jf Dow on 04-07-2023 Monocytes/100 WBC (Bld) 10.5 % 0-10 [facility] Blood platelet mean volumeOr dered By: Jf Dow on 04-07-2023 Platelet mean volume (Bld) [Entitic vol] 9.4 fL 6.2-12.0 [facility] Determination of erythrocyte mean corpuscular volume (MCV)Ordered By: Jf Dow on 04-07-2023 MCV (RBC) [Entitic vol] 89.2 fL 80-94 [facility] Hematocrit Auto (Bld) [Volum e fraction]Ordered By: Jf Dow on 04-07-2023 Hematocrit (Bld) [Volume fraction] 46.4 % 40-54 [facility] Laboratory - Chemistry and C hemistry - challengeOrdered By: Indu Messer on 04-07-2023 ALP [Catalytic activity/Vol] 137 U/L 45-117 [facility] ALT [Catalytic activity/Vol] 85 U/L 16-61 [facility] CO2 [Moles/Vol] 27.0 mmol/L 21.0-32.0 [facility] Globulin (S) [Mass/Vol] 3.7 g/dL 2.2-4.2 [facility] Urea nitrogen/Creatinine [Mass ratio] 12.7 mg/mg 10-20 [facility] Laboratory - Chemistry and C hemistry - challengeOrdered By: Shaheed Palacios on 04-07-2023 Magnesium [Mass/Vol] 2.2 mg/dL 1.6-2.6 [facility] - Hematology and Cell countsOrdered By: Jf Dow on 04-07-2023 Erythrocyte distribution width (RBC) [Entitic vol] 41.0 fL 35.1-43.9 [facility] Erythrocyte distribution width (RBC) [Ratio] 12.6 % 11.6-14.6 [facility] Immature granulocytes/100 WBC (Bld) 0.400 % 0.0-0.9 [facility] Comment on above: IG% - Immature Granu locytes (promyelocytes, myelocytes and metamyelocytes) > 1% indicates that a LEFT SHIFT is Present. MCH (RBC) [Entitic mass] 30.2 pg 27.0-32.0 [facility] Nucleated RBC/100 WBC (Bld) [Ratio] 0 % 0-5 [facility] MCHC Auto (RBC) [Mass/Vol]Or dered By: Jf Dow on 04-07-2023 MCHC (RBC) [Mass/Vol] 33.8 g/dL 32-36 [facility] No Panel InformationOrdered By: Indu Messer on 04-07-2023 Estimated Creatinine Clearance Calc 56.36 ml/min [facility] Estimated GFR (MDRD) Amer 78 mL/min >60 [facility] Comment on above: GFR Calc Estimated GFR (MDRD) Non-Af Amer 65 mL/min >60 [facility] Comment on above: Non- GFR Calc Troponin I High Sensitivity > 103443 pg/mL 3.0-78.0 [facility] Comment on above: Critical Result(s) C alled at: 05:41:21 04/07/2023 by: NORMAN ROSAS to Edwina Wong RN PCU. Results read back by same. Please Note: New Test Units and Gender Specific Reference Ranges. For more information see Policy Stat Procedure [employer] Mark High Sensitivity Troponin (TNIH) and attachments. Platelets bldOrdered By: Marlo Dow on 04-07-2023 Platelets (Bld) [#/Vol] 217 10*3/uL 150-450 [facility] Serum or plasma albumin osei urement (mass/volume)Ordered By: Indu Messer on 04-07-2023 Albumin [Mass/Vol] 3.2 g/dL 3.2-5.0 [facility] Serum or plasma albumin/glob ulin mass ratioOrdered By: Indu Messer on 04-07-2023 Albumin/Globulin [Mass ratio] 0.9 {ratio} 0.9-2.4 [facility] Serum or plasma calcium osei urement (mass/volume)Ordered By: Indu Messer on 04-07-2023 Calcium [Mass/Vol] 8.5 mg/dL 8.5-10.1 [facility] Serum or plasma creatinine m easurement (mass/volume)Ordered By: Indu Messer on 04-07-2023 Creatinine [Mass/Vol] 1.18 mg/dL 0.70-1.30 [facility] Comment on above: The validity of the calculated GFR & GFRAA in patients over 70 years has not been determined. Clinical correlation is essential. Serum or plasma urea nitroge n measurement (mass/volume)Ordered By: Indu Messer on 04-07-2023 Urea nitrogen [Mass/Vol] 15 mg/dL 7-18 [facility] Thin prep Papanicolaou smear with manual screeningOrdered By: Indu Messer on 04-07-2023 Thin prep Papanicolaou smear with manual screening 394 U/L 15-37 [facility] Thin prep Papanicolaou smear with manual screening 5 5-15 [facility] INR in Blood by Coagulation assayOrdered By: Nirmal Walter on 04-06-2023 INR Coag (Bld) [Relative time] 1.0 {INR} [facility] Laboratory - CoagulationOrde red By: Nirmal Walter on 04-06-2023 aPTT Coag (Bld) [Time] 28.7 s 24.1-36.2 [facility] PT Coag (PPP) [Time] 13.0 s 11.7-14.9 [facility] No Panel InformationOrdered By: Dion Sabillon on 04-06-2023 Activated Clotting Time 233 sec 74-137 [facility] No Panel InformationOrdered By: Nirmal Walter on 04-06-2023 D-Dimer Quantitative (PE/DVT) 0.86 FEU/ug/m 0.27-0.49 [facility] Comment on above: D-Dimer ELEVATED (>0 .49): Additional studies and clinicalassessments are indicated to conclude diagnosis of:Deep Vein Thrombosis (DVT) or Pulmonary Embolism (PE) SHOULDER COMPLETE RTon 01-04 SHOULDER COMPLETE RT [address] [address] Patient: ALISSA CAPPS Phone#: : 1950 Age: 72 Gender: M Pt. Type: Out Account: [id number] Location: Ordering: [facility] Exam Date: 01/04/2023/13:22 Family Phys: SON HAOKLARISSA Charge Code: 589988 Physician: Barry Order #: [id number] Dose#: PROCEDURE: X-RAY SHOULDER COMPLETE RT MIN 2 VIEWS COMPARISON: None. INDICATIONS: Pain FINDINGS: BONES: Mild degenerative changes are present at the shoulder. There is no evidence of acute bone abnormality. SOFT TISSUES: Negative. No visible soft tissue swelling. EFFUSION: None visible. OTHER: Negative. CONCLUSION: 1. Mild degenerative changes are present. Dictated by: Rosio Singh MD on 01/04/2023 at 13:39 Approved by: Rosio Singh MD on 01/04/2023 at 13:39 Normal [facility] No Panel Informationon 04-29 [facility] Hemoglobin A1con 04-21-2021 Glucose [Mass/Vol] 137 mg/dL Normal [facility] Comment on above: Performed By: #### H BA1C #### [facility] Routine Lab [address] [place], [place] [id number] HbA1c (Bld) [Mass fraction] 6.4 % High 4.3-5.6 [facility] Comment on above: Performed By: #### H BA1C #### [facility] Routine Lab [address] [place], [place] [id number] NM PET/CT WHOLE BODY INITon 01-19-2021 NM PET/CT WHOLE BODY INIT * * *Final Report* * * DATE OF EXAM: Jan 19 2021 10:23AM MDP 0061 - NM PET/CT WHOLE BODY INIT / PROCEDURE REASON: R91.8-Lung nodules * * * * Physician Interpretation * * * * EXAMINATION: [id number] FDG PET/CT SCAN HISTORY: 70 year old Male with Lung nodules. Former smoker, 10 pack-years INDICATION: Indication for PET: Initial Treatment Strategy No diagnostic CT was performed. TECHNIQUE: F18-FDG administered IV was followed about 60 minutes later by PET imaging from eyes to proximal thighs. Free breathing low dose CT was performed without contrast for attenuation correction and anatomic localization. FDG radionuclide dose: 14.[address] Dose-Length Product (DLP): 591 mGy*cm CT Dose Reduction Employed: Yes COMPARISON: No prior PET/CT available CORRELATION: 01/15/2021 CT chest shows lung nodules, right adrenal adenoma, and findings compatible with acute pancreatitis. RESULT: REFERENCE: Mediastinal blood pool: Max SUV 2.4 Liver: Max SUV 3.2 [employer] (topogram) images: No additional findings. NECK: Physiologic uptake seen in the visualized brain, parapharyngeal soft tissues, base of tongue, vocal cords, and salivary glands. Mass: No FDG avid mass. Lymph Nodes: No FDG avid cervical lymphadenopathy. Thyroid: No FDG avid thyroid lesion. . CHEST: Physiologic uptake in the heart and mediastinum. Lines, tubes, and devices: None. Lungs and tracheobronchial tree: Few pulmonary nodules with physiologic FDG uptake but no activity to suggest neoplasm, for example: * 1.1 cm right lower lobe subpleural nodule (image 121) with max SUV 1.2. * 1.0 cm groundglass nodule in the posterior right lower lobe (image 110) with max SUV 1.9. * 0.7 cm left lower lobe nodule (image 133) with max SUV 1.1. Note that PET/CT is not sensitive for pulmonary nodules less than 8 mm. Pleura: No FDG avid pleural effusion or pleural mass. Mediastinum and Lymph nodes: No mass. Vasculature is within normal limits. Physiologic FDG uptake but no activity to suggest neoplasm. Heart and great vessels: Within normal limits. Physiologic FDG uptake is seen. Chest wall is unremarkable.. ABDOMEN AND PELVIS: Physiologic uptake seen in the and GI tracts. Liver: No FDG avid mass. Normal morphology. Biliary: The gallbladder is absent. Spleen: No FDG avid mass. No splenomegaly. Pancreas: There is enlargement of the pancreatic head and neck with diffuse peripancreatic soft tissue stranding as well as diffuse FDG uptake in this area, compatible with pancreatitis. Adrenals: 4.0 cm right adrenal adenoma again noted. No FDG avid lesion.. Kidneys: Excreted activity limits evaluation of kidneys and collecting system. No definite stones, hydronephrosis, or FDG avid lesions. . GI tract: No FDG avid lesions. Small hiatal hernia. No bowel dilation or wall thickening. Normal appendix. There is diverticulosis. No changes of diverticulitis. Lymph nodes: No abdominal or pelvic FDG avid lymphadenopathy. Mesentery/Peritoneum: No ascites or FDG avid mass. Retroperitoneum: No mass. Vasculature: Vascular patency cannot be assessed due to lack of IV contrast. Pelvis: No FDG avid mass or ascites.. Excreted activity limites evaluation of bladder. Moderate left and small right hydrocele. . BONES AND EXTREMITIES: No suspicious FDG avid foci are detected. The imaged portions of the skeleton disclose age-related degenerative changes, with no detectable destructive lytic or sclerotic lesions to suggest metastases. . IMPRESSION: 1. NECK: No FDG avid neoplastic process.. 2. CHEST: Non-FDG avid pulmonary nodules as detailed. No FDG avid thoracic lymphadenopathy. 3. ABDOMEN/PELVIS: * No FDG avid neoplastic process. * Radiographic findings compatible with pancreatitis. * 4.0 cm right adrenal adenoma. 4. EXTREMITIES/SKELETON: No FDG avid neoplastic process.. Rn Obgyn: PSCB Transcribe Date/Time: Jan 19 2021 10:45A Dictated by : EZEQUIEL SOLANO MD This examination was interpreted and the report reviewed and electronically signed by: TERRY SANDS MD on Jan 19 2021 11:45AM EST [id number] Normal [facility] Vital Signs Date Time Vital Sign Value Performing Clinician Facility 12-11-2024 07:15-0400 Body height 177.[address] Aleksandr Ramirez MD Work Phone: [facility] 12-11-2024 07:15-0400 Body mass index (BMI) [Ratio] 35.9 kg/m2 Dr. Aleksandr Ramirez MD Work Phone: [facility] 12-11-2024 07:15-0400 Body weight 113.[address] Aleksandr Ramirez MD Work Phone: [facility] 12-11-2024 07:15-0400 Diastolic blood pressure 68 mm[Hg] Dr. Aleksandr Ramirez MD Work Phone: [facility] 12-11-2024 07:15-0400 Heart rate 64 /min Dr. Aleksandr Ramirez MD Work Phone: [facility] 12-11-2024 07:15-0400 Respiratory rate 20 /min Dr. Aleksandr Ramirez MD Work Phone: [facility] 12-11-2024 07:15-0400 SaO2% (BldA) [Mass fraction] 94 % Dr. Aleksandr Ramirez MD Work Phone: [facility] 12-11-2024 07:15-0400 Systolic blood pressure 135 mm[Hg] Dr. Aleksandr Ramirez MD Work Phone: [facility] 11-13-2024 07:08-0400 Body height 175.3 cm Son Ramirez MD Work Phone: [facility] 11-13-2024 07:08-0400 Body mass index (BMI) [Ratio] 37.24 kg/m2 Son Ramirez MD Work Phone: [facility] 11-13-2024 07:08-0400 Body weight 114.4 kg Son Ramirez MD Work Phone: [facility] 11-13-2024 07:08-0400 Diastolic blood pressure 62 mm[Hg] Son Ramirez MD Work Phone: [facility] 11-13-2024 07:08-0400 Heart rate 72 /min Son Ramirez MD Work Phone: [facility] 11-13-2024 07:08-0400 SaO2% (BldA) [Mass fraction] 95 % Son Ramirez MD Work Phone: [facility] 11-13-2024 07:08-0400 Systolic blood pressure 130 mm[Hg] Son Ramirez MD Work Phone: [facility] 05-15-2024 07:52-0500 Body mass index (BMI) [Ratio] 36.59 kg/m2 Umu Podlogar EXIT BOOTH AGENT.JUNIOR DATABASE ADMINISTRATOR Work Phone: [facility] 05-15-2024 07:52-0500 Body weight 112.4 kg Umu Podlogar EXIT BOOTH AGENT.JUNIOR DATABASE ADMINISTRATOR Work Phone: [facility] 05-15-2024 07:52-0500 Diastolic blood pressure 72 mm[Hg] Umu Podlogar EXIT BOOTH AGENT.JUNIOR DATABASE ADMINISTRATOR Work Phone: [facility] 05-15-2024 07:52-0500 Heart rate 75 /min Umu Podlogar EXIT BOOTH AGENT.JUNIOR DATABASE ADMINISTRATOR Work Phone: [facility] 05-15-2024 07:52-0500 Respiratory rate 18 /min Umu Podlogar EXIT BOOTH AGENT.JUNIOR DATABASE ADMINISTRATOR Work Phone: [facility] 05-15-2024 07:52-0500 SaO2% (BldA) [Mass fraction] 94 % Umu Podlogar EXIT BOOTH AGENT.JUNIOR DATABASE ADMINISTRATOR Work Phone: [facility] 05-15-2024 07:52-0500 Systolic blood pressure 134 mm[Hg] Umu Podlogar EXIT BOOTH AGENT.JUNIOR DATABASE ADMINISTRATOR Work Phone: [facility] 11-14-2023 08:30-0400 Diastolic blood pressure 64 mm[Hg] Son Ramirez MD Work Phone: [facility] Comment on above: recheck 11-14-2023 08:30-0400 Systolic blood pressure 130 mm[Hg] Son Ramirez MD Work Phone: [facility] Comment on above: recheck 11-14-2023 07:52-0400 Body mass index (BMI) [Ratio] 34.44 kg/m2 Son Ramirez MD Work Phone: [facility] 11-14-2023 07:52-0400 Body weight 105.78 kg Son Ramirez MD Work Phone: [facility] 11-14-2023 07:52-0400 Heart rate 64 /min Son Ramirez MD Work Phone: [facility] Comment on above: home cuff 66 11-14-2023 07:52-0400 Respiratory rate 16 /min Son Ramirez MD Work Phone: [facility] 11-14-2023 07:52-0400 SaO2% (BldA) [Mass fraction] 97 % Son Ramirez MD Work Phone: [facility] 08-28-2023 00:44-0400 Body weight 107.[address] Aleksandr Ramirez Work Phone: 9(343)267-291847 [place] [address] 07-28-2023 09:24-0500 Body height 177.[address] Aleksandr Ramirez Work Phone: 7(416)014-166914 [place] [address] 07-28-2023 09:24-0500 Body weight 107.[address] Aleksandr Ramirez Work Phone: 0(270)049-964514 [place] [address] 06-30-2023 09:25-0500 Body height 177.[address] Aleksandr Ramirez Work Phone: 1(103)662-085914 [place] [address] 06-30-2023 09:25-0500 Body weight 107.[address] Aleksandr Ramirez Work Phone: 1(476)276-033647 [place] [address] 06-12-2023 09:44-0500 Body height 177.[address] Aleksandr Ramirez Work Phone: 9(238)636-969714 [place] [address] 06-12-2023 09:44-0500 Body mass index (BMI) [Ratio] 34.7 kg/m2 Dr. Aleksandr Ramirez Work Phone: 4(301)050-538047 [place] [address] 06-12-2023 09:44-0500 Body weight 109.[address] Aleksandr Ramirez Work Phone: 5(705)841-735447 [place] [address] 06-12-2023 09:44-0500 Diastolic blood pressure 77 mm[Hg] Dr. Aleksandr Ramirez Work Phone: 3(091)139-832947 [place] [address] 06-12-2023 09:44-0500 Heart rate 68 /min Dr. Aleksandr Ramirez Work Phone: 2(579)584-767847 [place] [address] 06-12-2023 09:44-0500 Respiratory rate 18 /min Dr. Aleksandr Ramirez Work Phone: 7(406)601-738314 [place] [address] 06-12-2023 09:44-0500 Systolic blood pressure 132 mm[Hg] Dr. Aleksandr Ramirez Work Phone: 0(173)343-326414 [place] [address] 05-31-2023 14:17-0500 Body mass index (BMI) [Ratio] 36.1 kg/m2 Dr. Aleksandr Ramirez Work Phone: 9(854)857-863214 [place] [address] 05-31-2023 13:16-0500 Body weight 114.[address] Aleksandr Ramirez Work Phone: 7(619)190-555014 [place] [address] 05-31-2023 13:07-0500 Diastolic blood pressure 79 mm[Hg] Dr. Aleksandr Ramirez Work Phone: 2(906)149-051914 [place] [address] 05-31-2023 13:07-0500 Heart rate 79 /min Dr. Aleksandr Ramirez Work Phone: 9(948)630-006014 [place] [address] 05-31-2023 13:07-0500 SaO2% (BldA) [Mass fraction] 95 % Dr. Aleksandr Ramirez Work Phone: 6(066)033-465814 [place] [address] 05-31-2023 13:07-0500 Systolic blood pressure 133 mm[Hg] Dr. Aleksandr Ramirez Work Phone: 9(697)949-142614 [place] [address] 05-12-2023 14:53-0500 Body temperature 98.7 [degF] Dr. Aleksandr Ramirez Work Phone: 2(528)792-417914 [place] [address] 05-12-2023 14:53-0500 Diastolic blood pressure 86 mm[Hg] Dr. Aleksandr Ramirez Work Phone: 5(374)457-365814 [place] [address] 05-12-2023 14:53-0500 Heart rate 72 /min Dr. Aleksandr Ramirez Work Phone: 3(313)840-946114 [place] [address] 05-12-2023 14:53-0500 Respiratory rate 16 /min Dr. Aleksandr Ramirez Work Phone: 8(786)671-364514 [place] [address] 05-12-2023 14:53-0500 SaO2% (BldA) [Mass fraction] 100 % Dr. Aleksandr Ramirez Work Phone: 9(140)618-172314 [place] [address] 05-12-2023 14:53-0500 Systolic blood pressure 154 mm[Hg] Dr. Aleksandr Ramirez Work Phone: 6(003)105-202314 [place] [address] 05-11-2023 15:57-0500 Body height 177.[address] Aleksandr Ramirez Work Phone: 0(042)334-911614 [place] [address] 05-11-2023 15:57-0500 Body mass index (BMI) [Ratio] 35.5 kg/m2 Dr. Aleksandr Ramirez Work Phone: 1(164)649-318214 [place] [address] 05-11-2023 15:57-0500 Body weight 112.[address] Aleksandr Ramirez Work Phone: 1(479)744-749914 [place] [address] 05-02-2023 14:06-0500 Body height [address] Aleksandr Ramirez Work Phone: 6(104)066-255414 [place] [address] 05-02-2023 14:06-0500 Body mass index (BMI) [Ratio] 38.2 kg/m2 Dr. Aleksandr Ramirez Work Phone: 3(594)782-095114 [place] [address] 05-02-2023 14:06-0500 Body weight 114.[address] Aleksandr Ramirez Work Phone: 0(209)829-224014 [place] [address] 05-02-2023 14:06-0500 Diastolic blood pressure 79 mm[Hg] Dr. Aleksandr Ramirez Work Phone: 0(756)659-369314 [place] [address] 05-02-2023 14:06-0500 Heart rate 79 /min Dr. Aleksandr Ramirez Work Phone: 5(083)201-615714 [place] [address] 05-02-2023 14:06-0500 Respiratory rate 18 /min Dr. Aleksandr Ramirez Work Phone: 2(035)270-750114 [place] [address] 05-02-2023 14:06-0500 SaO2% (BldA) [Mass fraction] 95 % Dr. Aleksandr Ramirez Work Phone: [facility] 05-02-2023 14:06-0500 Systolic blood pressure 133 mm[Hg] Dr. Aleksandr Ramirez Work Phone: 6(448)069-643047 [place] [address] 04-17-2023 09:57-0500 Body weight 114.49 kg Son Ramirez MD Work Phone: 9(119)432-471336 [place] [address] 04-17-2023 09:57-0500 Diastolic blood pressure 70 mm[Hg] Son Ramirez MD Work Phone: 2(827)970-868736 [place] [address] 04-17-2023 09:57-0500 Heart rate 76 /min Son Ramirez MD Work Phone: 6(541)295-116791 [place] [address] 04-17-2023 09:57-0500 Respiratory rate 16 /min Son Ramirez MD Work Phone: 1(581)761-359891 [place] [address] 04-17-2023 09:57-0500 SaO2% (BldA) [Mass fraction] 95 % Son Ramirez MD Work Phone: 1(821)571-029936 [place] [address] 04-17-2023 09:57-0500 Systolic blood pressure 128 mm[Hg] Son Ramirez MD Work Phone: 9(484)188-700791 [place] [address] 04-08-2023 11:06-0500 Inhaled oxygen flow rate 0 L/min Dr. Aleksandr Ramirez Work Phone: 6(166)460-723414 [place] [address] 04-08-2023 11:06-0500 SaO2% (BldA) [Mass fraction] 97 % Dr. Aleksandr Ramirez Work Phone: 4(482)920-555747 [place] [address] 04-08-2023 08:27-0500 Body temperature 98.3 [degF] Dr. Aleksandr Ramirez Work Phone: 7(341)168-213214 [place] [address] 04-08-2023 08:27-0500 Diastolic blood pressure 87 mm[Hg] Dr. Aleksandr Ramirez Work Phone: 2(522)219-028414 [place] [address] 04-08-2023 08:27-0500 Heart rate 78 /min Dr. Aleksandr Ramirez Work Phone: 3(789)424-965614 [place] [address] 04-08-2023 08:27-0500 Respiratory rate 18 /min Dr. Aleksandr Ramirez Work Phone: [facility] 04-08-2023 08:27-0500 Systolic blood pressure 141 mm[Hg] Dr. Aleksandr Ramirez Work Phone: [facility] 04-07-2023 14:53-0500 Body height [address] Aleksandr Ramirez Work Phone: [facility] 04-07-2023 14:53-0500 Body weight 116.[address] Aleksandr Ramirez Work Phone: [facility] 04-06-2023 17:11-0500 Body mass index (BMI) [Ratio] 38.9 kg/m2 Dr. Aleksandr Ramirez Work Phone: [facility] 04-18-2022 09:24-0500 Diastolic blood pressure 76 mm[Hg] Son Ramirez MD Work Phone: [facility] 04-18-2022 09:24-0500 Systolic blood pressure 136 mm[Hg] Son Ramirez MD Work Phone: [facility] 04-18-2022 08:44-0500 Body weight 117.48 kg Son Ramirez MD Work Phone: [facility] 04-18-2022 08:44-0500 Heart rate 75 /min Son Ramirez MD Work Phone: [facility] 04-18-2022 08:44-0500 Respiratory rate 16 /min Son Ramirez MD Work Phone: [facility] 04-18-2022 08:44-0500 SaO2% (BldA) [Mass fraction] 97 % Son Ramirez MD Work Phone: [facility] 10-15-2021 09:18-0400 Body weight 117.12 kg Son Ramirez MD Work Phone: [facility] 10-15-2021 09:18-0400 Diastolic blood pressure 82 mm[Hg] Son Ramirez MD Work Phone: [facility] 10-15-2021 09:18-0400 Heart rate 88 /min Son Ramirez MD Work Phone: [facility] 10-15-2021 09:18-0400 Respiratory rate 16 /min Son Ramirez MD Work Phone: [facility] 10-15-2021 09:18-0400 SaO2% (BldA) [Mass fraction] 96 % Son Ramirez MD Work Phone: [facility] 10-15-2021 09:18-0400 Systolic blood pressure 132 mm[Hg] Son Ramirez MD Work Phone: [facility] 08-27-2021 09:58-0400 Body temperature 97.39 [degF] Angelika Torres APRN.JUNIOR DATABASE ADMINISTRATOR Work Phone: [facility] 08-27-2021 09:58-0400 Body weight 117.75 kg Angelika Torres APRN.JUNIOR DATABASE ADMINISTRATOR Work Phone: [facility] 08-27-2021 09:58-0400 Diastolic blood pressure 84 mm[Hg] Angelika Torres APRN.JUNIOR DATABASE ADMINISTRATOR Work Phone: [facility] 08-27-2021 09:58-0400 Heart rate 89 /min Angelika Torres APRN.JUNIOR DATABASE ADMINISTRATOR Work Phone: [facility] 08-27-2021 09:58-0400 Respiratory rate 18 /min Angelika Torres APRN.JUNIOR DATABASE ADMINISTRATOR Work Phone: [facility] 08-27-2021 09:58-0400 SaO2% (BldA) [Mass fraction] 96 % Angelika Torres APRN.JUNIOR DATABASE ADMINISTRATOR Work Phone: [facility] 08-27-2021 09:58-0400 Systolic blood pressure 140 mm[Hg] Angelika Torres APRN.JUNIOR DATABASE ADMINISTRATOR Work Phone: [facility] Encounters Encounter Date Encounter Type Care Provider Facility Start: 01-15-2025 ambulatory Gelacio Demiter Facility :[facility] Start: 01-09-2025 End: 01-09-2025 Refill Son Ramirez MD Work Phone: [facility] Comment on above: Refill Request Start: 12-11-2024 End: 12-11-2024 Patient encounter procedure Gel[facility] Work Phone: Start: 12-11-2024 End: 12-11-[address] Aleksandr Ramirez MD Work Phone: -[facility] Start: 11-13-2024 End: 01-13-2025 Follow-up encounter Gloria Bustos LPN [facility] Start: 11-13-2024 End: 11-13-2024 Patient encounter procedure Son Ramirez MD Work Phone: [facility] Comment on above: Primary hypertension (Primary Dx); Controlled type 2 diabetes mellitus without complication, without long-term current use of insulin (HCC); Diabetic polyneuropathy associated with type 2 diabetes mellitus (HCC); Coronary artery disease involving mashpee heart without angina pectoris, unspecified vessel or lesion type; S/P angioplasty with stent; Systolic congestive heart failure, unspecified HF chronicity (HCC); Obesity, Class II, BMI 35-39.9; RAMOS (nonalcoholic steatohepatitis); Gastroesophageal reflux disease, unspecified whether esophagitis present Start: 11-13-2024 End: 11-13-2024 ambulatory SON RAMIREZ Facility:[facility] Start: 11-12-2024 End: 11-12-2024 ambulatory UMU MARQUEZ Facility:[facility] Start: 06-24-2024 End: 06-24-2024 ambulatory Aleksandr Ramirez Facility:[facility] Start: 06-05-2024 End: 06-05-2024 ambulatory ALISSA GUTIERREZ Facility:[facility] Start: 05-15-2024 End: 05-15-2024 Patient encounter procedure Umu Marquez APRN.CNP Work Phone: [facility] Comment on above: Controlled type 2 di abetes mellitus without complication, without long-term current use of insulin (HCC) (Primary Dx); Coronary artery disease involving mashpee heart without angina pectoris, unspecified vessel or lesion type; Encounter for immunization; Mild nonproliferative diabetic retinopathy of both eyes without macular edema associated with type 2 diabetes mellitus (HCC); Primary hypertension; Hyperlipidemia, unspecified hyperlipidemia type; Thrombocytopenia (HCC); Obesity, Class II, BMI 35-39.9; S/P arterial stent Start: 05-15-2024 End: 05-15-2024 ambulatory UMU PODLOGAR Facility:[facility] Start: 05-14-2024 End: 05-14-2024 ambulatory UMU PODLOGAR Facility:[facility] Start: 05-13-2024 End: 05-13-2024 Telephone encounter Son Ramirez MD Work Phone: [facility] Comment on above: Lab Orders Start: 04-29-2024 End: 04-29-2024 ambulatory ALISSA GUTIERREZ Facility:[facility] Start: 04-29-2024 End: 04-29-2024 Patient encounter procedure Alissa Gutierrez Work Phone: Podiatry Comment on above: Diabetic polyneuropa thy associated with type 2 diabetes mellitus (HCC) (Primary Dx); Ingrowing toenail; Diminished pulses in lower extremity Start: 03-16-2024 End: 03-17-2024 Refill Son Ramirez MD Work Phone: [facility] Comment on above: Refill Request Start: 01-10-2024 Refill Son Ramirez MD Work Phone: [facility] Comment on above: Refill Request Start: 11-14-2023 End: 11-14-2023 Patient encounter procedure Son Ramirez MD Work Phone: [facility] Comment on above: Controlled type 2 di abetes mellitus without complication, without long-term current use of insulin (HCC) (Primary Dx); Coronary artery disease involving mashpee heart without angina pectoris, unspecified vessel or lesion type; Systolic congestive heart failure, unspecified HF chronicity (HCC); Primary hypertension; Hyperlipidemia, unspecified hyperlipidemia type; Encounter for immunization; Elevated alkaline phosphatase level; Mild nonproliferative diabetic retinopathy of both eyes without macular edema associated with type 2 diabetes mellitus (HCC) Start: 11-02-2023 Telephone encounter Aleksandr Ramirez MD Work Phone: [facility] Comment on above: Patient Question Start: 08-28-2023 End: 09-26-[address] Aleksandr Ramirez Work Phone: [facility] Work Phone: Start: 08-28-2023 End: 09-26-[address] Aleksandr Ramirez Work Phone: [facility] Work Phone: Start: 08-25-2023 End: 08-27-[address] Aleksandr Ramirez Work Phone: [facility] Work Phone: Start: 08-25-2023 End: 08-27-[address] Aleksandr Ramirez Work Phone: [facility] Work Phone: Start: 08-11-[address] Yoel Ramirez Work Phone: [facility] Work Phone: Start: 08-09-2023 Non-patient / Non-visit Dr. Allyson Ramirez Work Phone: [facility] Start: 08-09-2023 End: 08-09-[address] Aleksandr Ramirez Work Phone: [facility] Work Phone: Start: 08-09-2023 End: 08-09-[address] Aleksandr Ramirez Work Phone: [facility] Work Phone: Start: 07-26-2023 End: 07-27-[address] Aleksandr Ramirez Work Phone: [facility] Work Phone: Start: 07-26-2023 End: 07-27-[address] Aleksandr Ramirez Work Phone: [facility] Work Phone: Start: 06-28-2023 End: 06-28-[address] Aleksandr Ramirez Work Phone: [facility] Work Phone: Start: 06-28-2023 End: 06-28-[address] Aleksandr Ramirez Work Phone: [facility] Work Phone: Start: 06-12-2023 End: 06-12-[address] Aleksandr Ramirez Work Phone: [facility] Work Phone: Start: 05-31-2023 End: 05-31-[address] Aleksandr Ramirez Work Phone: [facility] Work Phone: Start: 05-12-2023 Non-patient / Non-visit Dr. Allyson Ramirez Work Phone: [facility] Start: 05-11-2023 End: 05-12-2023 Evaluation and management of inpatient Dr. Aleksandr Ramirez Work Phone: [facility]Pro[facility] Work Phone: Start: 05-11-2023 End: 05-12-[address] Aleksandr Ramirez Work Phone: [facility] Work Phone: Start: 05-11-2023 Non-patient / Non-visit Dr. Allyson Ramirez Work Phone: [facility] Start: 05-02-2023 End: 05-02-[address] Aleksandr Ramirez Work Phone: [facility] Work Phone: Start: 05-02-2023 End: 05-02-[address] Aleksandr Ramirez Work Phone: [facility]Laboratory Work Phone: Start: 05-02-2023 End: 05-02-[address] Aleksandr Ramirez Work Phone: [facility] Work Phone: Start: 04-27-2023 End: 04-27-2023 Patient encounter procedure Alissa Brenda Work Phone: Podiatry Comment on above: Controlled type 2 di abetes mellitus without complication, without long-term current use of insulin (HCC) (Primary Dx); Neuroma Start: 04-17-2023 End: 04-17-2023 Patient encounter procedure Son Ramirez MD Work Phone: [facility] Comment on above: NSTEMI (non-ST eleva baudilio myocardial infarction) (HCC) (Primary Dx); Coronary artery disease involving mashpee heart without angina pectoris, unspecified vessel or lesion type; S/P arterial stent; Chest pain, unspecified type; Systolic congestive heart failure, unspecified HF chronicity (HCC); Essential hypertension; Controlled type 2 diabetes mellitus without complication, without long-term current use of insulin (HCC); Mild nonproliferative diabetic retinopathy of both eyes without macular edema associated with type 2 diabetes mellitus (HCC); Encounter for immunization Start: 04-11-2023 ambulatory Son Ramirez MD Work Phone: [facility] Start: 04-08-2023 Non-patient / Non-visit Dr. Allyson Ramirez Work Phone: [facility] Start: 04-08-2023 End: 04-08-2023 Non-patient / Non-visit Dr. Aleksandr Ramirez Work Phone: [facility] [facility] Work Phone: Start: 04-07-2023 Non-patient / Non-visit Dr. Allyson Ramirez Work Phone: [facility] Work Phone: Start: 04-07-2023 End: 04-07-2023 Non-patient / Non-visit Dr. Aleksandr Ramirez Work Phone: [facility] Work Phone: Start: 04-06-2023 Non-patient / Non-visit Dr. Allyson Ramirez Work Phone: [facility] Start: 04-06-2023 End: 04-08-2023 Evaluation and management of inpatient Dr. Aleksandr Ramirez Work Phone: [facility] Work Phone: Start: 02-15-2023 End: 02-15-[address] Aleksandr Ramirez Work Phone: [facility] Work Phone: Start: 01-04-2023 End: 01-04-2023 ambulatory SON RAMIREZ [facility] Start: 05-16-2022 Refill Son Ramirez MD Work Phone: [facility] Comment on above: Refill Request Start: 05-03-2022 Telephone encounter Aleksandr Ramirez MD Work Phone: [facility] Comment on above: Results Start: 04-29-2022 End: 04-29-2022 Subsequent hospital visit by physician [facility] Work Phone: Radiology Comment on above: Elevated alkaline ph osphatase level [R74.8] History of tobacco u se [Z87.891] Start: 04-26-2022 End: 04-26-2022 Subsequent hospital visit by physician [facility] Work Phone: Radiology Comment on above: History of tobacco u se [Z87.891] Elevated alkaline ph osphatase level [R74.8] Start: 04-26-2022 End: 04-26-2022 Patient encounter procedure Alissa Gutierrez Work Phone: Podiatry Comment on above: Controlled type 2 di abetes mellitus without complication, without long-term current use of insulin (HCC); Type 2 diabetes mellitus with diabetic neuropathy, without long-term current use of insulin (HCC) Start: 04-20-2022 Telephone encounter Aleksandr Ramirez MD Work Phone: [facility] Comment on above: Results Start: 04-18-2022 End: 04-18-2022 Patient encounter procedure Son Ramirez MD Work Phone: [facility] Comment on above: Controlled type 2 di abetes mellitus without complication, without long-term current use of insulin (HCC) (Primary Dx); Type 2 diabetes mellitus with diabetic neuropathy, without long-term current use of insulin (HCC); Primary hypertension; Elevated alkaline phosphatase level; RAMOS (nonalcoholic steatohepatitis); Class 2 obesity without serious comorbidity with body mass index (BMI) of 35.0 to 35.9 in adult, unspecified obesity type; Bilateral lower extremity edema; Unsteady gait; Need for COVID-19 vaccine; History of tobacco use Start: 11-11-2021 Refill Son Ramirez MD Work Phone: [facility] Comment on above: Refill Request Start: 10-15-2021 End: 10-15-2021 Patient encounter procedure Son Ramirez MD Work Phone: [facility] Comment on above: Controlled type 2 di abetes mellitus without complication, without long-term current use of insulin (HCC) (Primary Dx); S/P left rotator cuff repair; Primary hypertension; Persistent cough; Allergic rhinitis, unspecified seasonality, unspecified trigger; Class 2 obesity without serious comorbidity with body mass index (BMI) of 35.0 to 35.9 in adult, unspecified obesity type; RAMOS (nonalcoholic steatohepatitis) Start: 10-11-2021 Telephone encounter Aleksandr Ramirez MD Work Phone: [facility] [place] Comment on above: Lab Orders Start: 08-27-2021 End: 08-27-2021 Patient encounter procedure Angelika Torres APRN.JUNIOR DATABASE ADMINISTRATOR Work Phone: [facility] Comment on above: Non-recurrent acute suppurative otitis media of right ear without spontaneous rupture of tympanic membrane (Primary Dx) Start: 08-26-2021 End: 08-26-2021 Discharged Recurring [facility] Start: 04-30-2021 End: 04-30-2021 Patient encounter procedure [facility], Specimen Procedures Date Procedure Procedure Detail Performing Clinician Start: 05-15-2024 PFIZER-BIONTECH COVID-19 VACCINE AGE 12+ YR (COMIRNATY) Umu Marquez APRN.JUNIOR DATABASE ADMINISTRATOR Work Phone: Start: 04-17-2023 INFLUENZA VACCINE, PRSV FREE, AGE 65+ YR, HIGH DOSE, QUADRIVALENT (FLUZONE HIGH-DOSE) Son Ramirez MD Work Phone: Start: 04-17-2023 PFIZER-BIONTECH COVID-19 VACCINE ( SEASON) AGE 12+ YR Son Ramirez MD Work Phone: Start: 04-06-2023 CT of chest and abdomen Dr. Aleksandr rojas Work Phone: Start: 04-06-2023 Plain chest X-ray Dr. Aleksandr beltran Work Phone: Start: 04-29-2022 Us abdominal aorta real time screen study aaa Son Ramirez MD Work Phone: Start: 04-18-2022 PFIZER-BIONTECH COVID-19 BIVALENT BOOSTER VACCINE, AGE 12+ YR Son Ramirez MD Work Phone: Start: 03-29-2021 Colonoscopy Angelika Torres APRN.JUNIOR DATABASE ADMINISTRATOR Work Phone: Start: 01-24-2021 Adult depression screening assessment Angelika Torres APRN.JUNIOR DATABASE ADMINISTRATOR Work Phone: History of repair of musculotendinous cuff of shoulder S/P left rotator cuff repair Son Ramirez MD Work Phone: Plan of Treatment Date Care Activity Detail Author Start: 03-29-2031 Colonoscopy COLONOSCOPY [facility] Start: 03-29-2031 COLORECTAL CANCER SCREENING COLORECTAL CANCER SCREENING [facility] Start: 03-29-2031 Screening for malign ant neoplasm of colon [facility] Start: 11-13-2025 Annual PCP Team Senior Quality Assurance Engineer marlo Disease Visit Annual PCP Team Chronic Disease Visit [facility] Start: 11-13-2025 Covid-19 Vaccine ( season) Covid-19 Vaccine ( season) [facility] Comment on above: Postponed from 11/13 (Declined at this time) Start: 11-13-2025 RSV Vaccine (1 - Ris k 60-74 years 1-dose series) RSV Vaccine (1 - Risk 60-74 years 1-dose series) [facility] Comment on above: Postponed from 09/05 (Declined at this time) Start: 11-13-2025 Shingrix Vaccine (1 of 2) Shingrix Vaccine (1 of 2) [facility] Comment on above: Postponed from 09/05 (Declined at this time) Start: 11-13-2025 Urine microalbumin profile DTaP,Tdap,Td Vaccine (1 - Tdap) [facility] Comment on above: Postponed from 10/06 (Declined at this time) Start: 11-12-2025 Hepatitis B screening Urine Al bumin:Creatinine Ratio [facility] Start: 11-12-2025 Hepatitis B surface antibody level LDL Cholesterol [facility] Start: 09-26-2025 Glaucoma screening Dilated Retinal E xam [facility] Start: 05-19-2025 End: 05-19-2025 Patient encounter procedure 05/19/2025 7:00 AM EST Office Visit [facility] [address] [place] [phone] Son Ramirez MD [address] [place] [phone] 6 month follow up [facility] Comment on above: 6 month follow up Start: 05-15-2025 Annual PCP Team Senior Quality Assurance Engineer marlo Disease Visit Annual PCP Team Chronic Disease Visit [facility] Start: 05-14-2025 Hemoglobin A1c measurement HbA1C [facility] Start: 04-29-2025 Diabetic foot examination Diabetic Foot Exam [facility] Start: 02-13-2025 End: 05-15-2025 Comprehensive metabolic 2000 panel - Serum or Plasma COMPREHENSIVE METABOLIC PANEL Lab Routine Coronary artery disease involving [place] heart without angina pectoris, unspecified vessel or lesion type Expected: 02/13/2025, Expires: 05/15/2025 [facility] Comment on above: Expected: 02/13/2025 , Expires: 05/15/2025 Start: 02-13-2025 End: 05-15-2025 Lipid 1996 panel - Serum or Plasma LIPID PANEL, FASTING Lab Routine Coronary artery disease involving [place] heart without angina pectoris, unspecified vessel or lesion type Expected: 02/13/2025, Expires: 05/15/2025 [facility] Work Phone: Comment on above: Expected: 02/13/2025 , Expires: 05/15/2025 Start: 01-27-2025 Influenza vaccination Influenza Vacc ine (#1) [facility] Start: 11-13-2024 Annual PCP Team Senior Quality Assurance Engineer marlo Disease Visit Annual PCP Team Chronic Disease Visit [facility] Start: 11-13-2024 End: 02-12-2025 CBC W Auto Differential panel - Blood COMPLETE BLOOD COUNT AND DIFFERENTIAL Lab Routine Controlled type 2 diabetes mellitus without complication, without long-term current use of insulin (HCC) Thrombocytopenia (HCC) Expected: 11/13/2024, Expires: 02/12/2025 [facility] Comment on above: Expected: 11/13/2024 , Expires: 02/12/2025 Start: 11-13-2024 End: 02-12-2025 Comprehensive metabolic 2000 panel - Serum or Plasma COMPREHENSIVE METABOLIC PANEL Lab Routine Controlled type 2 diabetes mellitus without complication, without long-term current use of insulin (HCC) Primary hypertension Hyperlipidemia, unspecified hyperlipidemia type Expected: 11/13/2024, Expires: 02/12/2025 [facility] Comment on above: Expected: 11/13/2024 , Expires: 02/12/2025 Start: 11-13-2024 Covid-19 Vaccine ( season) Covid-19 Vaccine ( season) [facility] Comment on above: Postponed from 08/15 (Declined at this time) Start: 11-13-2024 End: 02-12-2025 Hemoglobin A1c in Blood HEMOGLOBIN A1C Lab Routine Controlled type 2 diabetes mellitus without complication, without long-term current use of insulin (HCC) Expected: 11/13/2024, Expires: 02/12/2025 [facility] Comment on above: Expected: 11/13/2024 , Expires: 02/12/2025 Start: 11-13-2024 End: 02-12-2025 Lipid 1996 panel - Serum or Plasma LIPID PANEL BASIC Lab Routine Hyperlipidemia, unspecified hyperlipidemia type Expected: 11/13/2024, Expires: 02/12/2025 [facility] Comment on above: Expected: 11/13/2024 , Expires: 02/12/2025 Start: 11-13-2024 End: 02-12-2025 Microalbumin/Creatinine [Mass Ratio] in Urine ALBUMIN/CREATININE RATIO, URINE Lab Routine Mild nonproliferative diabetic retinopathy of both eyes without macular edema associated with type 2 diabetes mellitus (HCC) Controlled type 2 diabetes mellitus without complication, without long-term current use of insulin (HCC) Expected: 11/13/2024, Expires: 02/12/2025 [facility] Work Phone: Comment on above: Expected: 11/13/2024 , Expires: 02/12/2025 Start: 11-13-2024 End: 11-13-2024 Patient encounter procedure 11/13/2024 7:20 AM EDT Office Visit [facility] [address] [place] [phone] Son Ramirez MD [address] [place] [address] 6 month follow up [facility] Comment on above: 6 month follow up Start: 11-12-2024 Hemoglobin A1c measurement HbA1C [facility] Start: 11-08-2024 Hepatitis B surface antibody level LDL Cholesterol [facility] Start: 09-19-2024 Glaucoma screening Dilated Retinal E xam [facility] Start: 06-05-2024 End: 06-05-2024 Patient encounter procedure 06/05/2024 8:00 AM EST Office Visit Vasculary Surgery [address] [place] [address] Diminished pulses in lower extremity [R09.89] [facility] Comment on above: Diminished pulses in lower extremity [R09.89] Start: 05-29-2024 Advance Directive Discussion Advance Directive Discussion [facility] Start: 05-15-2024 Annual PCP Team Senior Quality Assurance Engineer marlo Disease Visit Annual PCP Team Chronic Disease Visit [facility] Start: 05-15-2024 BP Controlled (<130/80) BP Controlle d (<130/80) [facility] Start: 05-15-2024 End: 05-15-2024 Patient encounter procedure 05/15/2024 8:00 AM EST Office Visit [facility] [address] [place] [address] PodlogarUmu APRN.JUNIOR DATABASE ADMINISTRATOR [address] [facility] [place] [address] 6 month follow up Family [facility] Comment on above: 6 month follow up Start: 05-13-2024 End: 08-12-2024 CBC W Auto Differential panel - Blood COMPLETE BLOOD COUNT AND DIFFERENTIAL Lab Routine Controlled type 2 diabetes mellitus without complication, without long-term current use of insulin (HCC) Expected: 05/13/2024, Expires: 08/12/2024 [facility] Comment on above: Expected: 05/13/2024 , Expires: 08/12/2024 Start: 05-13-2024 End: 08-12-2024 Comprehensive metabolic 2000 panel - Serum or Plasma COMPREHENSIVE METABOLIC PANEL Lab Routine Controlled type 2 diabetes mellitus without complication, without long-term current use of insulin (HCC) Expected: 05/13/2024, Expires: 08/12/2024 [facility] Work Phone: Comment on above: Expected: 05/13/2024 , Expires: 08/12/2024 Start: 05-13-2024 End: 08-12-2024 Hemoglobin A1c in Blood HEMOGLOBIN A1C Lab Routine Controlled type 2 diabetes mellitus without complication, without long-term current use of insulin (HCC) Expected: 05/13/2024, Expires: 08/12/2024 [facility] Comment on above: Expected: 05/13/2024 , Expires: 08/12/2024 Start: 05-10-2024 Hemoglobin A1c measurement HbA1C [facility] Start: 04-29-2024 End: 04-29-2024 Patient encounter procedure 04/29/2024 8:00 AM EST Office Visit Podiatry [address] [place], [place] [phone] Alissa Gutierrez [address] [place] [address] 1 year follow up diabeti foot exam Podiatry Comment on above: 1 year follow up oriana jean claude foot exam Start: 04-27-2024 3 comp foot exam completed Diabetic Foot Exam [facility] Start: 04-27-2024 Diabetic foot examination Diabetic Foot Exam [facility] Start: 04-17-2024 Annual PCP Team Senior Quality Assurance Engineer marlo Disease Visit Annual PCP Team Chronic Disease Visit [facility] Start: 04-17-2024 BP Controlled (<130/80) BP Controlle d (<130/80) [facility] Start: 04-17-2024 Hepatitis B screening Urine Al bumin:Creatinine Ratio [facility] Start: 04-17-2024 RSV Vaccine (1 - 1-d ose 60+ series) RSV Vaccine (1 - 1-dose 60+ series) [facility] Comment on above: Postponed from 09/05 (Declined at this time) Start: 04-17-2024 RSV Vaccine (1 - Ris k 60-74 years 1-dose series) RSV Vaccine (1 - Risk 60-74 years 1-dose series) [facility] Comment on above: Postponed from 09/05 (Declined at this time) Start: 04-17-2024 Shingrix Vaccine (1 of 2) Shingrix Vaccine (1 of 2) [facility] Comment on above: Postponed from 09/05 (Declined at this time) Start: 04-17-2024 Urine microalbumin profile DTaP,Tdap,Td Vaccine (1 - Tdap) [facility] Comment on above: Postponed from 10/06 (Declined at this time) Start: 01-28-2024 Covid-19 Vaccine ( season) Covid-19 Vaccine ( season) [facility] Start: 01-28-2024 Influenza vaccination Influenza Vacc ine (#1) [facility] Start: 12-14-2023 End: 03-14-2024 ALK PHOS ISOENZYM BL ALK PHOS ISOENZYM BL Lab Routine Elevated alkaline phosphatase level Expected: 12/14/2023, Expires: 03/14/2024 [facility] Comment on above: Expected: 12/14/2023 , Expires: 03/14/2024 Start: 12-14-2023 End: 03-14-2024 Comprehensive metabolic 2000 panel - Serum or Plasma COMPREHENSIVE METABOLIC PANEL Lab Routine Elevated alkaline phosphatase level Expected: 12/14/2023, Expires: 03/14/2024 [facility] Work Phone: Comment on above: Expected: 12/14/2023 , Expires: 03/14/2024 Start: 12-14-2023 End: 03-14-2024 Gamma glutamyl transferase [Enzymatic activity/volume] in Serum or Plasma GGT Lab Routine Elevated alkaline phosphatase level Expected: 12/14/2023, Expires: 03/14/2024 [facility] Comment on above: Expected: 12/14/2023 , Expires: 03/14/2024 Start: 11-14-2023 End: 11-14-2023 Patient encounter procedure 11/14/2023 8:00 AM EDT Office Visit [facility] [address] [place] [phone] Son Ramirez MD [address] [place] [phone] 6 month follow up [facility] Comment on above: 6 month follow up Start: 10-18-2023 Annual PCP Team Senior Quality Assurance Engineer malro Disease Visit Annual PCP Team Chronic Disease Visit [facility] Start: 10-18-2023 BP Controlled (<130/80) BP Controlle d (<130/80) [facility] Start: 10-18-2023 Hepatitis B surface antibody level LDL Cholesterol [facility] Start: 10-16-2023 Hemoglobin A1c measurement HbA1C [facility] Start: 10-16-2023 Hemoglobin A1c/Hemoglobin.total in Blood HbA1C [facility] Start: 09-23-2023 Hepatitis C antibody , confirmatory test Dilated Retinal Exam [facility] Start: 08-16-2023 Covid-19 Vaccine () Covid-19 Vaccine () [facility] Start: 05-29-2023 Advance Directive Discussion Advance Directive Discussion [facility] Start: 05-29-2023 Behavioral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 service representative agreed to proceed HPI Alissa Capps is a 74 year old male who [...] showed no retinopathy. 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 Coronary Artery Disease: - Last cardiology visit at [facility] in May; next appointment scheduled for November. [...] s/p surgical correction CHF (congestive heart failure) ([facility]) 04/17/2023 EF 45% Chronic left shoulder pain 20+ years, ran over by a sow Diabetes mellitus type II, controlled ([facility]) Fatty liver 05/02/2022 on GERD (gastroesophageal reflux disease) HTN (hypertension) Mild nonproliferative diabetic retinopathy of both eyes without macular edema associated with type 2 diabetes mellitus ([facility]) 04/2020 Obesity S/P angioplasty with stent 03/2023 YUKI to obtuse marginal branch Thrombocytopenia Previous Surgical History PAST SURGICAL HISTORY Procedure Laterality Date CARPAL TUNNEL right COLONOSCOPY 2004, 2015 COLONOSCOPY FLX DX W/COLLJ SPEC WHEN PFRMD 03/29/2021 -normal biopsies, per DP repeat in 10 years LAPAROSCOPY REPAIR INCISIONAL HERNIA REDUCIBLE 06/19/2017 Hernia repair, umbilical/incisional [facility] - laparoscopic - 12 x 8 Ventrio [...] lb 3.2 oz) SpO2 95% BMI 37.24 kg/m General Appearance: Well appearing, alert, in no [...] Lymph 1.00 - 4.00 k/uL 1.61 1.88 Taney% % 12.2 11.2 Abs Taney <0.87 k/uL 0.64 0.65 Eosin% % 3.1 [...] - 15 mmol/L 10 8 eGFR >=60 mL/min/1.73m 88 88 Cholesterol, Total <200 mg/dL 130 [...] complication, without long-term current use of insulin ([facility]) (E11.9) 2. Diabetic polyneuropathy associated with type 2 diabetes mellitus ([facility]) (E11.42) - Hemoglobin A1c remains stable at 6.4%, consistent with previous measurement 6 months ago. - Patient adheres to diabetic diet and metformin regimen; no new symptoms of neuropathy or retinopathy reported. - Educated on the importance of daily fasting blood glucose monitoring; target fasting glucose <130 mg/dL. - Advised to continue daily foot inspections; follow-up with law office manager Dr. Gutierrez scheduled annually in April. - Urinalysis revealed proteinuria; continue valsartan therapy to manage. 3. Coronary artery disease involving [place] heart without angina pectoris, unspecified vessel or lesion type (I25.10) 4. S/P angioplasty with stent (Z95.820) 5. Systolic congestive heart failure, unspecified HF chronicity ([facility]) (I50.20) - No new episodes [...] of increased Lipitor dosage. - Follow-up with cover mat machine operator scheduled for late November. 6. Primary hypertension [...] recent episodes of heartburn. Son Ramirez MD documented in this encounter [facility] 05-15-2024 Note HNO ID: [id number] Author: UMU MARQUEZ APRN.JUNIOR DATABASE ADMINISTRATOR Service: ? Author Type: Nurse Practitioner Type: [...] CAD/CHF/HX of STEMI and YUKI: followed with [facility] cardiology on 12/13/2023. Switched from Brilinta to [...] gi upset: Yes Going to go to [facility] to work on weight. Had lost some weight doing cardaic rehab but has since gained some back PAST MEDICAL HISTORY Diagnosis Date CAD (coronary artery disease) Carpal tunnel syndrome on right s/p surgical correction CHF (congestive heart failure) ([facility]) 04/17/2023 EF 45% Chronic left shoulder pain 20+ years, ran over by a sow Diabetes mellitus type II, controlled ([facility]) Fatty liver 05/02/2022 on HTN (hypertension) Mild nonproliferative diabetic retinopathy of both eyes without macular edema associated with type 2 diabetes mellitus ([facility]) 04/2020 Obesity S/P angioplasty with stent 03/2023 YUKI to obtuse marginal branch Thrombocytopenia ([facility]) ALLERGIES Farxiga [Dapagliflozin] and Chlorhexidine [...] or lesions to exposed skin Latest Ref [facility] 05/14/2024 WBC 3.70 - 11.00 k/uL 5.23 [...] Abs Lymph 1.00 - 4.00 k/uL 1.61 Taney% % 12.2 Abs Taney <0.87 k/uL 0.64 Eosin% % 3.1 Abs Eosin <0.46 k/uL 0.16 Baso% % 0.8 Abs Baso <0.11 k/uL 0.04 Immatur (more content not included)... [facility] 05-15-2024 History of Presen t illness Narrative 05/15/2024 Patient presents with: F/U 6 Month [...] CAD/CHF/HX of STEMI and YUKI: followed with [facility] cardiology on 12/13/2023. Switched from Brilinta to [...] gi upset: Yes Going to go to [facility] to work on weight. Had lost some weight doing [facility] but has since gained some back PAST MEDICAL HISTORY Diagnosis Date CAD (coronary artery disease) Carpal tunnel syndrome on right s/p surgical correction CHF (congestive heart failure) (HCC) 04/17/2023 EF 45% Chronic left shoulder pain 20+ years, ran over by a sow Diabetes mellitus type II, controlled (HCC) Fatty liver 05/02/2022 on US HTN (hypertension) [...] lb 12.8 oz) SpO2 94% BMI 36.59 kg/m . Vital signs reviewed by this provider. [...] Abs Lymph 1.00 - 4.00 k/uL 1.61 Taney% % 12.2 Abs Taney <0.87 k/uL 0.64 Eosin% % 3.1 Abs [...] 8 - 15 mmol/L 10 eGFR >=60 mL/min/1.73m 88 Hemoglobin A1C 4.3 - 5.6 % 6.4 (H) Estimated Average Glucose mg/dL 137 Latest Ref Rn 11/09/2023 Cholesterol, Total <200 mg/dL 101 Triglyceride [...] 10/18/2023 Influenza Vaccine(1) due on 01/28/2024 Covid-19 Vaccine(6 - 2023- season) due on 01/28/2024 Urine Albumin:Creatinine Ratio [...] and benefit of weight loss. BMI 36.59 kg/(m^2) - Follow up in 6 months, sooner should any other issues arise. - ALBUMIN/CREATININE RATIO, URINE - COMPREHENSIVE METABOLIC PANEL - COMPLETE BLOOD COUNT AND DIFFERENTIAL - HEMOGLOBIN A1C 2. Coronary artery disease involving mashpee heart without angina pectoris, unspecified vessel or lesion type - ICD9: 414.01, ICD10: I25.10 - stable - CARVEDILOL 25 MG TABLET - follow-up with cardiology as recommended 3. Encounter for immunization - ICD9: V03.89, ICD10: Z23 - INFLUENZA VACCINE, PRSV FREE, AGE 65+ YR, HIGH DOSE, TRIVALENT (FLUZONE HIGH-DOSE) - interclick COVID-19 VACCINE AGE 12+ YR (COMIRNATY) 4. [...] and benefit of weight loss. BMI 36.59 kg/(m^2) - Follow up in 6 months for hypertension visit - COMPREHENSIVE METABOLIC PANEL 6. Hyperlipidemia, unspecified hyperlipidemia type - ICD9: 272.4, ICD10: E78.5 - Controlled - Continue current medications - Counseled on healthy diet and regular exercise - Discussed need for and benefit of weight loss. BMI 36.59 kg/(m^2) - Follow up in 6 months, sooner [...] medications - follow-up with cardiology as recommended Umu Spicerlogjulio césar, BRUCE.JUNIOR DATABASE ADMINISTRATOR Prescription instructions reviewed with patient as applicable. [...] Medical Decision Making Level: 4 - Moderate documented in this encounter [facility] 05-13-2024 Telephone encounter Note Tatianna called and notified that lab orders have been placed. Voiced understanding. Zahra Brown RN [facility] 05-13-2024 Miscellaneous Notes Tatianna called and notified that lab orders have been placed. Voiced understanding. Zahra Brown RN Lab orders placed. Umu Marquez APRN.CNP Patient's calling and states that patient has 6 month follow up scheduled with Umu on 05/15/2024. asking if provider wants patient to get labs done prior to appointment. If labs ordered asking for a call back. Please review and advise, Zahra Brown RN documented in this encounter [facility] 05-13-2024 Telephone encounter Note Lab orders placed. Umu Marquez APRN.HA [facility] 05-13-2024 Telephone encounter Note Patient's calling and states that patient has 6 month follow up scheduled with Umu on 05/15/2024. asking if provider wants patient to get labs done prior to appointment. If labs ordered asking for a call back. Please review and advise, Zahra Brown RN [facility] 04-29-2024 Instructions Alissa Gutierrez - 04/29/2024 8:16 AM EST Diabetes Foot Care Instructions When you have [...] (or decreased sensation in your feet) a law office manager should always cut your toenails. Be Careful [...] Go to your health care provider or law office manager to treat these conditions. documented in this encounter [facility] 04-29-2024 Note HNO ID: [id number] Author: ALISSA GUTIERREZ, ? Service: ? Author Type: Physician Type: [...] s/p surgical correction CHF (congestive heart failure) ([facility]) 04/17/2023 EF 45% Chronic left shoulder pain 20+ years, ran over by a sow Diabetes mellitus type II, controlled ([facility]) Fatty liver 05/02/2022 on HTN (hypertension) Mild nonproliferative diabetic retinopathy of both eyes without macular edema associated with type 2 diabetes mellitus ([facility]) 04/2020 Obesity S/P angioplasty with stent 03/2023 YUKI to obtuse marginal branch Thrombocytopenia ([facility]) Current Outpatient Medications Medication Sig [...] is warm to warm proximal to distal bilater (more content not included)... [facility] 04-29-2024 History of Presen t illness Narrative Subjective: This 73 year old male presents [...] s/p surgical correction CHF (congestive heart failure) ([facility]) 04/17/2023 EF 45% Chronic left shoulder pain 20+ years, ran over by a sow Diabetes mellitus type II, controlled ([facility]) Fatty liver 05/02/2022 on HTN (hypertension) Mild nonproliferative diabetic retinopathy of both eyes without macular edema associated with type 2 diabetes mellitus ([facility]) 04/2020 Obesity S/P angioplasty with stent 03/2023 YUKI to obtuse marginal branch Thrombocytopenia ([facility]) Current Outpatient Medications Medication Sig [...] Objective: Patient presents to clinic ambulating in [facility] Constitutional: Pt is a well developed 73 [...] patient on shoes that avoid rubbing. Alissa Gutierrez DPM AMB ROOMING INTAKE FLOWSHEET DATA Risk Screening Do you have concerns about personal safety or safety in the home?: No Patient presents with: Left Foot - Established Patient, Follow Up, Diabetic Foot Check Right Foot - Established Patient, Follow Up, Diabetic Foot Check Elinor Salvador LPN documented in this encounter [facility] 04-29-2024 Note HNO ID: [id number] Author: ELINOR SALVADOR LPN Service: ? Author [...] Up, Diabetic Foot Check Elinor Salvador LPN [facility] 03-16-2024 Telephone encounter Note The patient has been identified by name and date of : Yes Caregiver verified no other encounters exist for this prescription request: Yes Caregiver confirmed with patient/requestor that no other refills are due, in the near future, with this provider at this time: Yes The last office visit in the department: 11/14/2023 Does the patient have a future office visit with this provider/department: Yes 05/15/2024 Requested Prescriptions Pending Prescriptions Disp Refills carvedilol (COREG) 25 mg tablet 180 tablet 0 Sig: Take 1 tablet by mouth two times a day with meals. atorvastatin (LIPITOR) 40 mg tablet 90 tablet 1 Sig: Take 1 tablet by mouth daily at bedtime. For cholesterol. Omeprazole Magnesium (PRILOSEC OTC) 20 mg tablet 90 tablet 1 Sig: Take 1 tablet by mouth once daily. Patient will run out of medication on Monday. Shruthi Sparks LPN March 16, 2024 10:32 AM [facility] 03-16-2024 Miscellaneous Notes The patient has been identified by name and date of : Yes Caregiver verified no other encounters exist for this prescription request: Yes Caregiver confirmed with patient/requestor that no other refills are due, in the near future, with this provider at this time: Yes The last office visit in the department: 11/14/2023 Does the patient have a future office visit with this provider/department: Yes 05/15/2024 Requested Prescriptions Pending Prescriptions Disp Refills carvedilol (COREG) 25 mg tablet 180 tablet 0 Sig: Take 1 tablet by mouth two times a day with meals. atorvastatin (LIPITOR) 40 mg tablet 90 tablet 1 Sig: Take 1 tablet by mouth daily at bedtime. For cholesterol. Omeprazole Magnesium (PRILOSEC OTC) 20 mg tablet 90 tablet 1 Sig: Take 1 tablet by mouth once daily. Patient will run out of medication on Monday. Shruthi Sparks LPN March 16, 2024 10:32 AM documented in this encounter [facility] 01-10-2024 Telephone encounter Note [facility]-11/14/23 Labs-11/09/23Mar-05/15/24 Elizabeth West LPN [facility] 01-10-2024 Miscellaneous Notes [facility]-11/14/23 Labs-11/09/23Mar-05/15/24 Elizabeth West LPN documented in this encounter [facility] 11-14-2023 History of Presen t illness Narrative Chief Complaint Patient presents with: Follow Up: 6 month- prescribed farxiga and patient opting not to take d/t side effects HPI Alissa Capps is a 73 year old male who presents here today for Above Complaints. DIABETES MELLITUS: Mr. Capps was last seen 6 months ago. Since our last visit he denies excessive thirst or increased frequency of urination, numbness, tingling or pain in extremities, new or unusual visual symptoms, and low sugar/hypoglycemic reactions. Follows a diabetic diet most of the time. He is compliant with medication(s) and is tolerating med(s) without any side effects. He reports checking his glucose on a infrequent to not at all basis, but he has supplies. Patient's last HgA1C was Hemoglobin A1C (%) Date Value 11/09/2023 6.3 04/17/2023 6.6 04/16/2021 6.5 10/19/2020 6.7 ) Last Ophthalmology exam was within the past 12 months Last Podiatry exam was within the past 12 months CAD/CHF: Managed by [facility] cardiology with last OV 05/2023 which was reviewed. Repeat echo obtained 3 months go which showed persistently low EF of 40% and large wall abnormality with hypokinesis as well as functionally bicuspid aortic valve due to fusion. Based on these results they wanted to start him on Farxiga which he states caused a rash. He has f/u with cardiology in 2 weeks to discuss alternatives and change from Valsartan to Entresto. BP above goal of 130/80 today. At home, he gets readings in the 125-138/70's. HR has been in the 60's on higher dose beta maico. Past medical history, appointments, medications, allergies reviewed. Previous Medical History PAST MEDICAL HISTORY Diagnosis Date CAD (coronary artery disease) Carpal tunnel syndrome on right s/p surgical correction CHF (congestive heart failure) (HCC) 04/17/2023 EF 45% Chronic left shoulder pain 20+ years, ran over by a sow Diabetes mellitus type II, controlled ([facility]) Fatty liver 05/02/2022 on US HTN (hypertension) Mild nonproliferative diabetic retinopathy of both eyes without macular edema associated with type 2 diabetes mellitus (HCC) 04/2020 Obesity S/P angioplasty with stent 03/2023 YUKI to obtuse marginal branch Thrombocytopenia (HCC) Previous Surgical History PAST SURGICAL HISTORY Procedure [...] Diabetes Father Patient Allergies ALLERGIES Allergen Reactions Chlorhexidine Hives Current Medications Current Outpatient Medications on File Prior to Visit Medication Sig valsartan (DIOVAN) 320 mg tablet Take 1 tablet by mouth once daily. ticagrelor (BRILINTA) 90 mg tablet Take 1 tablet by mouth two times a day. atorvastatin (LIPITOR) 40 mg tablet Take 1 tablet by mouth daily at bedtime. For cholesterol. metFORMIN (GLUCOPHAGE) 500 mg tablet Take 1 tablet by mouth daily with breakfast. Omeprazole Magnesium (PRILOSEC OTC) 20 mg tablet Take 1 tablet by mouth once daily. carvedilol (COREG) 6.25 mg tablet Take 1 tablet by mouth two times a day with meals. (Patient taking differently: Take 25 mg by mouth two times a day with meals.) nitroglycerin sublingual (NITROSTAT) 0.4 mg SL tablet Dissolve 1 tablet under the tongue every 5 minutes as needed for chest pain. Multivitamin capsule Take 1 capsule by mouth once daily. Compression Knee Highs KNEE HIGH COMPRESSION STOCKINGS 30-40 MM. DX: EDEMA No current facility-administered medications on file prior to visit. Social History Social History Tobacco Use Smoking status: Former Packs/day: 0.50 Years: 20.00 Additional pack years: 0.00 Total pack years: 10.00 Types: Cigarettes Start date: 07/31/1974 Quit date: 07/31/1994 Years since quittin.3 Smokeless tobacco: Former Vaping Use Vaping Use: Never used Substance Use Topics Alcohol use: Yes Alcohol/week: [...] for lesions, rash, and itching EXAM: BP 130/64 Pulse 64 Resp 16 Wt 105.8 kg (233 lb 3.2 oz) SpO2 97% BMI 34.44 kg/m Home Cuff 146/77 General Appearance: Well appearing, alert, in no acute distress, well-hydrated, well nourished.. Skin: Skin color, texture, turgor normal, no suspicious rashes or lesions. Lungs: Lungs clear to auscultation. No wheezing, rhonchi, rales.. Heart: RRR without murmur, gallop, or rubs. No ectopy. Abdomen: Normal abdominal exam, Abdomen soft, non-tender. Bowel sounds normal. No masses, organomegaly. Extremities: Edema: 1+ to distal 1/3rd singer bilaterally. Not wearing compression stockings today. Health Maintenance List Advance Directive Discussion Never done Behavioral Health Screening Never done Covid-19 Vaccine( - 2022- season) due on 08/16/2023 DTaP,Tdap,Td Vaccine(1 - Tdap) due on 04/17/2024 RSV Vaccine(1 - 1-dose 60+ series) due on 04/17/2024 Shingrix Vaccine(1 of 2) due on 04/17/2024 Urine Albumin:Creatinine Ratio due on 04/17/2024 Diabetic Foot Exam due on 04/27/2024 HbA1C due on 05/10/2024 BP Controlled (<130/80) due on 05/15/2024 Dilated Retinal Exam due on 09/19/2024 LDL Cholesterol due on 11/08/2024 Annual PCP Team Chronic Disease Visit due on 11/13/2024 Colorectal Cancer Screening due on 03/29/2031 Abdominal Aortic Aneurysm Screening Completed Influenza Vaccine Completed Hepatitis C Screening Completed Pneumococcal Vaccine: 65+ Completed Data reviewed Latest Ref Rng 04/17/2023 11/09/2023 Protein, Total 6.3 - 8.0 g/dL 6.9 6.3 Albumin 3.9 - 4.9 g/dL 3.7 (L) 3.8 (L) Calcium 8.5 - 10.2 mg/dL 9.6 8.9 Bilirubin, Total 0.2 - 1.3 mg/dL 0.6 0.7 Alkaline Phosphatase 38 - 113 U/L 133 (H) 140 (H) AST 14 - 40 U/L 15 16 ALT 10 - 54 U/L 17 25 Glucose 74 - 99 mg/dL 133 (H) 144 (H) BUN 9 - 24 mg/dL 19 20 Creatinine 0.73 - 1.22 mg/dL 1.21 1.00 Sodium 136 - 144 mmol/L 139 138 Potassium 3.7 - 5.1 mmol/L 4.3 4.0 Chloride 98 - 107 mmol/L 106 (H) 109 (H) CO2 22 - 30 mmol/L 24 22 Anion Gap 8 - 15 mmol/L 9 7 (L) eGFR >=60 mL/min/1.73m 64 80 Cholesterol, Total <200 mg/dL 101 Triglyceride <150 mg/dL 66 HDL Cholesterol >39 mg/dL 35 (L) Non HDL Cholesterol <130 mg/dL 66 Fasting Time hrs 12 VLDL Cholesterol <30 mg/dL 13 TC:HDL Ratio <5.10 2.89 LDL Cholesterol <100 mg/dL 53 LDL:HDL Ratio <2.54 1.51 Creatinine, Ur Random (UCRR) 20.0 - 300.0 mg/dL 144.6 Albumin, Urine Random mg/L 66.4 Albumin/Creat Ratio <30 mg/g 46 (H) Hemoglobin A1C 4.3 - 5.6 % 6.6 (H) 6.3 (H) Estimated Average Glucose mg/dL 143 134 Legend: (L) Low (H) High ASSESSMENT/PLAN: 1. Controlled type 2 diabetes mellitus without complication, without long-term current use of insulin (HCC) - ICD9: 250.00, ICD10: E11.9 (primary diagnosis) - Controlled - Continue current medications - Statin prescribed - atorvastatin - Blood glucose monitoring on a once daily schedule - Counseled on healthy diet and regular exercise - Discussed need for and benefit of weight loss. BMI 34.44 kg/(m^2) - Discussed diabetic education issues of diabetes complications and monitoring required, hypoglycemic/hyperglycemic symptoms, medication-specific side effects and monitoring, and diabetic sick day rules - Follow up in 6 months, sooner should any other issues arise. 2. Coronary artery disease involving mashpee heart without angina pectoris, unspecified vessel or lesion type - ICD9: 414.01, ICD10: I25.10 Asymptomatic on current regimen. Failed farxiga due to rash. Continue higher dose Coreg per cardiology recommendations. Discuss alternative SGLT2 at upcoming appointment. - CARVEDILOL 6.25 MG TABLET - CARVEDILOL 25 MG TABLET 3. Systolic congestive heart failure, unspecified HF chronicity (HCC) - ICD9: 428.20, 428.0, ICD10: I50.20 See above. Recommendations per cardiology. 4. Primary hypertension - ICD9: 401.9, ICD10: I10 - Controlled - Continue current medications - Recommend home blood pressure monitoring, to bring results to next visit - Encouraged sodium restriction, DASH or Mediterranean diet - Recommend regular aerobic exercise 5. Hyperlipidemia, unspecified hyperlipidemia type - ICD9: 272.4, ICD10: E78.5 - Controlled - Continue current medications - Counseled on healthy diet and regular exercise 6. Elevated alkaline phosphatase level - ICD9: 790.5, ICD10: R74.8 Repeat labs in 1 month for borderline high alk phos. - COMPREHENSIVE METABOLIC PANEL - ALK PHOS ISOENZYM BL Son Ramirez MD documented in this encounter [facility] 11-02-2023 Telephone encounter Note Patient's notified. They are unable to come to the office today. She is going to speak with pt and will call back to schedule if he decides to. [facility] 11-02-2023 Miscellaneous Notes Patient's notified. They are unable to come to the office today. She is going to speak with pt and will call back to schedule if he decides to. I would recommend OV to discuss concerns with medication and evaluate for new urinary symptoms. I have openings today and would recommend be seen today for this. Tatianna, phoned asking Dr. Ramirez opinion on a medication [facility], prescribed for patient- Farxiga 10 mg daily. Reports patient had an IN at Thanksgiving time, and had 2 stents placed. Reports patient has DM 2, issues w/breathing d/t a medication he takes: brillinta, and other health problems. and patient concerned about him taking farxiga. Reports the side effects concern them: there are warnings on the medication, if a person takes BP medication, kidney issues, age > 65. Diabetic ketoacidosis is the worst of the side effects, but there are many others. Reports patient took a pill last night, and was up 3 times in the night to urinate (normally is only up once). is going to call [facility] to express her concerns, but would really like Dr. Ramirez's opinion as well. Please phone patient with reply. documented in this encounter [facility] 11-02-2023 Telephone encounter Note I would recommend OV to discuss concerns with medication and evaluate for new urinary symptoms. I have openings today and would recommend be seen today for this. [facility] 11-02-2023 Telephone encounter Note , Tatianna, phoned asking Dr. Ramirez opinion on a medication [facility], prescribed for patient- Farxiga 10 mg daily. Reports patient had an IN at Thanksgiving time, and had 2 stents placed. Reports patient has DM 2, issues w/breathing d/t a medication he takes: brillinta, and other health problems. and patient concerned about him taking farxiga. Reports the side effects concern them: there are warnings on the medication, if a person takes BP medication, kidney issues, age > 65. Diabetic ketoacidosis is the worst of the side effects, but there are many others. Reports patient took a pill last night, and was up 3 times in the night to urinate (normally is only up once). is going to call [facility] to express her concerns, but would really like Dr. Ramirez's opinion as well. Please phone patient with reply. [facility] 05-11-2023 Evaluation note Diagnosis Onset Date Hyperlipidemia chronic Ischemic cardiomyopathy chrome plater marlo Stented coronary artery May 11, 2023 chronic Ischemic cardiomyopathy chrome plater marlo Stented coronary artery May 11, 2023 chronic Hyperlipidemia chronic Ischemic cardiomyopathy chrome plater marlo Stented coronary artery May 11, 2023 [facility] Work Phone: 1(501) 717-150712-14-2023 Evaluation note* Diagnosis Onset Date Resolution Status Hyperlipidemia chronic Ischemic cardiomyopathy chrome plater marlo Stented coronary artery May 11, 2023 [facility] Work Phone: 1(252) 357-354912-14-2023 Evaluation note* Diagnosis Onset Date Resolution Status Hyperlipidemia acute Ischemic cardiomyopathy acut e Stented coronary artery May 11, 2023 acute Ischemic cardiomyopathy acut e Stented coronary artery May 11, 2023 acute [facility] Work Phone: 1(934) 976-282811-30-2023 History of Present illness Narrative* Lolis Henderson RN - 04/27/2023 9:17 AM EST Per Rosario Downingew was provided with Powerstep Gel inserts, size 9-10.5 Mens, and instructed/educated in its application, wear, and care. All questions were answered, and patient was able to demonstrate competence with the necessary skills to utilize the above equipment. Lolis Henderson RN * Alissa Gutierrez - 04/27/2023 8:15 AM EST Subjective: This 72 year old male presents to clinic for diabetic foot check. Patient admits to being diabetic. Patient has some tingling in his toes. Patient -pain in legs when walking. No other pedal complaints at this time. No change in medications or medical history since last visit. PAIN EVALUATION No data found in the last 1 encounters. Hemoglobin A1C (%) Date Value 04/17/2023 6.6 10/17/2022 6.3 04/14/2022 6.4 10/13/2021 6.6 04/16/2021 6.5 10/19/2020 6.7 04/13/2020 6.6 10/07/2019 6.4 03/29/2019 6.5 PCP: Son Ramirez MD PAST MEDICAL HISTORY Diagnosis Date CAD (coronary artery disease) Carpal tunnel syndrome on right s/p surgical correction CHF (congestive heart failure) ([facility]) 04/17/2023 EF 45% Chronic left shoulder pain 20+ years, ran over by a sow Diabetes mellitus type II, controlled ([facility]) Fatty liver 05/02/2022 on HTN (hypertension) Mild nonproliferative diabetic retinopathy of both eyes without macular edema associated with type 2 diabetes mellitus ([facility]) 04/2020 Obesity S/P angioplasty with stent 03/2023 YUKI to obtuse marginal branch Thrombocytopenia ([facility]) Current Outpatient Medications Medication Sig atorvastatin (LIPITOR) 40 mg tablet Take 1 tablet by mouth daily at bedtime. For cholesterol. ticagrelor (BRILINTA) 90 mg tablet Take 1 tablet by mouth two times a day. carvedilol (COREG) 6.25 mg tablet Take 1 tablet by mouth two times a day with meals. metFORMIN (GLUCOPHAGE) 500 mg tablet Take 1 tablet by mouth daily with breakfast. valsartan (DIOVAN) 320 mg tablet Take 1 tablet by mouth once daily. Omeprazole Magnesium (PRILOSEC OTC) 20 mg tablet [...] medications for this visit. ALLERGIES Allergen Reactions Chlorhexidine Hives PAST SURGICAL HISTORY Procedure Laterality [...] Social History Tobacco Use Smoking status: Former Packs/day: 0.50 Years: 20.00 Additional pack years: 0.00 Total pack years: 10.00 Types: Cigarettes Start date: 07/31/1974 Quit date: 07/31/1994 Years since quittin.7 Smokeless tobacco: Former Vaping Use Vaping Use: Never used Substance Use Topics Alcohol use: Yes Alcohol/week: [...] Objective: Patient presents to clinic ambulating in [facility] Constitutional: Pt is a well developed 72 year old male who is alert, oriented, cooperative and in no apparent distress. Eyes: Following during examination. No redness or drainage. Respiratory: RR normal and nonlabored. Even breathing. No evidence of distress. Psychology: Patient is engaged during conversation. Normal affect and mood. Does not appear depressed or anxious. Vasc: DP and PT pulses are \ bilateral. CFT is less than 5 seconds bilateral. Skin temperature is warm to warm proximal to distal bilateral. There is no edema or varicosities noted. Hair growth present. Neuro: Protective sensation is intact to the foot and toes when tested with the 5.07 SWM bilateral.Vibratory sensation is decreased at the hallux bilateral. + Significant neurological defecits. Derm: Inspection and palpation performed. Nails 1-5 b/l are normal in length and thickness. Skin isof normal turgor and texture. Some dryness noted to b/l hallux. NO ulcerations, scars, verruca or other lesions noted. Ortho: Ankle joint DF is full with the knee extended and full with knee flexed. No pain or crepitusnoted. STJ, MTJ ROM are full and free of pain or crepitus. Muscle strength is 5/5 for dorsiflexors,plantarflexors, inverters, everters. Digital deformities include none. + mati sign of left 3rd interspace Assessment: (E11.9) Controlled type 2 diabetes mellitus without complication, without long- term current use of insulin ([facility]) (primary encounter diagnosis) (D36.10) Neuroma Plan: 1. Patient was seen and evaluated. 2. Patient was instructed on the continued importance of diabetic foot care along with proper diet and keeping their blood sugar under control to prevent complications. Instructions given both oral and written. 3. Discussed possible neuroma of left 3rd interspace. No pain. Will try powerstep gel insert. Otheroptions discussed include injection vs surgery to remove. Will try inserts 4. Recommend lotion to feet. Small area of dryness redueced with dremmel to b/l hallux Alissa Gutierrez DPM * Lolis Henderson RN - 04/27/2023 8:08 AM EST Patient presents with: Left Foot - Established Patient, Follow Up, Diabetic Foot Check Right Foot - Established Patient, Follow Up, Diabetic Foot Check Patient presents for 1 year follow up for diabetic foot check. State that sometimes he gets an achypain to his toes. Stands/walks a lot. documented in this encounterOhio[facility]11-30-2023 Instructions* Patient Instructions* Alissa Gutierrez - 04/27/2023 8:24 AM EST Diabetes Foot Care Instructions When you have [...] it. Apply a bandage and wear a differentpair of shoes. Take Care of Your Toenails Cut toenails after bathing, when they are soft. Cut toenails straight across and smooth with a nail file. Avoid cutting into the corners of toes. Do not cut cuticles. If you have neuropathy (or decreased sensation in your feet) a law office manager should always cut your toenails. Be Careful [...] make sure there are no foreign objects orrough areas. Avoid tight socks. Wear natural-fiber socks [...] Go to your health care provider or law office manager to treat these conditions. Powerstep Original Full length. Can purchase at [facility] and boots,shoes and more here in [place], [employer] in [place] or [place]. Also can find in [employer] in [facility]. Powersteps can also be purchased online, starting around $45.00 If you have a metatarsal or dancer pad for your feet apply the pad directly to the insole so you can interchange between your shoes. Find a shoe with a removable insole and take this out and replace with your powerstep insole. Always bring powersteps with you when shopping for shoes so that you can make sure that everything fits well together documented in this encounterOhiohealth [facility]11-20-2023 History of Present illness Narrative* Son Ramirez MD - 04/17/2023 10:00 AM EST nitChief Complaint Patient presents with: Transition Of Care HPI Alissa Capps is a 72 year old male who presents here today for Hospital Discharge Follow up/TCM. Patient admitted to [facility] from 04/06 to 04/08 or NSTEMI after presenting to the ED with chest pain. 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 Noted 80% stenosis LAD which was to be treated in staged manner. Transferred to PCU for med adjustment and echo showing EF 45%. Discharged home with new rx for Coreg 6.25 mg BID, ASA 81 mg, Bilinta 90 mg daily. Increased his Lipitor from 20mg to 40 mg. 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 States that since he has been home, he has not had any new chest pain. He has noted some mild dizziness after standing up quickly which he was told to expect. Also notes occasional need to take a full deep breath without SOB and some orthopnea around 2 am. Orthopnea resolves after getting up and getting drink of water. Denies palpitations, LE edema, bleeding/bruising, syncope, lightheadedness, SMITH. Patient has follow up appointment with cardiology on 05/02 and was told that he would have repeat heart cath in 4 weeks to correct 80% stenosis of LAD. Adhering to low sodium diet. Checking daily weight at home, but has not been recording them. Weightrunning around 250 consistently. Not scheduled for cardiac rehab yet. Did not need PT/OT. Able to perform ADLs. Past medical history, appointments, medications, allergies reviewed. 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+ years, ran over by a sow Diabetes mellitus type II, controlled (HCC) Fatty liver 05/02/2022 on US HTN (hypertension) Mild nonproliferative diabetic retinopathy of both eyes without macular edema associated with type 2 diabetes mellitus (HCC) 04/2020 Obesity Thrombocytopenia (HCC) Previous Surgical History PAST SURGICAL HISTORY Procedure Laterality Date CARPAL TUNNEL right COLONOSCOPY 2004, 2016 COLONOSCOPY FLX DX W/COLLJ SPEC WHEN PFRMD [...] Problems Mother Diabetes Father Patient Allergies ALLERGIES No Known Allergies Current Medications Current Outpatient Medications on File Prior to Visit Medication Sig atorvastatin (LIPITOR) 20 mg tablet Take 1 tablet by mouth daily at bedtime. For cholesterol. metFORMIN (GLUCOPHAGE) 500 mg tablet Take 1 tablet by mouth daily with breakfast. Omeprazole Magnesium (PRILOSEC OTC) 20 mg tablet Take 1 tablet by mouth once daily. valsartan (DIOVAN) 320 mg tablet Take 1 tablet by mouth once daily. Multivitamin capsule Take 1 capsule by mouth once daily. Compression Knee Highs KNEE HIGH COMPRESSION STOCKINGS 30-40 MM. DX: EDEMA No current facility-administered medications on file prior to visit. Social History Social History Tobacco Use Smoking status: Former Packs/day: 0.50 Years: 20.00 Additional pack years: 0.00 Total pack years: 10.00 Types: Cigarettes Start date: 07/31/1974 Quit date: 07/31/1994 Years since quittin.7 Smokeless tobacco: Former Vaping Use Vaping Use: Never used Substance Use Topics Alcohol use: Yes Alcohol/week: 2.5 standard drinks of alcohol Types: 1 Cans of Beer [...] for lesions, rash, and itching EXAM: BP 128/70 Pulse 76 Resp 16 Wt 114.5 kg (252 lb 6.4 oz) SpO2 95% BMI 37.27 kg/m General Appearance: Well appearing, alert, in no acute distress, well-hydrated, well nourished.. Skin: Heart cath site on right wrist healing well with mild bruising. No swelling or cellulitis. Lungs: Lungs clear to auscultation. No wheezing, rhonchi, rales.. Heart: RRR without murmur, gallop, or rubs. No ectopy. Abdomen: Normal abdominal exam, Abdomen soft, non-tender. Bowel sounds normal. No masses, organomegaly. Extremities: Edema: trace edema to mid singer. Health Maintenance List Shingrix Vaccine(1 of 2) Never done RSV Vaccine(1 - 1-dose 60+ series) Never done DTaP,Tdap,Td Vaccine(1 - Tdap) due on 10/06/2017 Hepatitis B Vaccine(3 of 3 - Risk 3-dose series) due on 10/15/2019 Advance Directive Discussion Never done Depression Assessment Never done Influenza Vaccine(1) due on 01/27/2023 Covid-19 Vaccine( season) due on 01/27/2023 Urine Albumin:Creatinine Ratio due on 04/14/2023 Diabetic Foot Exam due on 04/18/2023 HbA1C due on 04/19/2023 Dilated Retinal Exam due on 09/23/2023 LDL Cholesterol due on 10/18/2023 Annual PCP Team Chronic Disease Visit due on 10/18/2023 BP Controlled (<130/80) due on 10/18/2023 Colorectal Cancer Screening due on 03/29/2031 Abdominal Aortic Aneurysm Screening Completed Hepatitis C Screening Completed Pneumococcal Vaccine: 65+ Completed ASSESSMENT/PLAN: 1. NSTEMI (non-ST elevated myocardial infarction) (HCC) - ICD9: 410.70, ICD10: I21.4 (primary diagnosis) No recurrent chest pain since YUKI to obtuse marginal branch. Continue medical management and f/u with cardiology as scheduled for LAD stenosis. Red flags for re-assessment reviewed with patient in detail. 2. Coronary artery disease involving mashpee heart without angina pectoris, unspecified vessel or lesion type - ICD9: 414.01, ICD10: I25.10 See above 3. S/P arterial stent - ICD9: V45.89, ICD10: Z95.9 See above 4. Chest pain, unspecified type - ICD9: 786.50, ICD10: R07.9 Resolved. 5. Systolic congestive heart failure, unspecified HF chronicity (HCC) - ICD9: 428.20, 428.0, ICD10:I50.20 Continue low sodium diet, check daily weights, and continue current regimen. Red flags for re-assessment reviewed with patient in detail. 6. Essential hypertension - ICD9: 401.9, ICD10: I10 - Controlled - Continue current medications - Recommend home blood pressure monitoring, to bring results to next visit - Encouraged sodium restriction, DASH or Mediterranean diet - Recommend regular aerobic exercise 7. Controlled type 2 diabetes mellitus without complication, without long-term current use of insulin (HCC) - ICD9: 250.00, ICD10: E11.9 Obtain labs. F/u in 1 month to review. - ATORVASTATIN 40 MG TABLET - COMP METABOLIC PANEL - HGB A1C - METFORMIN 500 MG TABLET 8. Mild nonproliferative diabetic retinopathy of both eyes without macular edema associated with type 2 diabetes mellitus (HCC) - ICD9: 250.50, 362.04, ICD10: E11.3293 - ALBUMIN/CREAT RATIO RND UR 9. Encounter for immunization - ICD9: V03.89, ICD10: Z23 - INFLUENZA VACCINE, PRSV FREE, AGE 65+ YR, HIGH DOSE, QUADRIVALENT (FLUZONE HIGH-DOSE) - [employer] COVID-19 VACCINE (2022- [place]) AGE 12+ YR Son Ramirez MD documented in this encounterOhio[facility]11-14-2023 History of Present illness Narrative* Son Ramirez MD - 04/11/2023 9:48 AM EST Reviewed. * Gloria Bustos LPN - 04/11/2023 9:23 AM EST TRANSITION CARE MANAGEMENT (TCM) INITIAL CONTACT [facility] Outreach Provider Action/FYI: Patient went to hospital for headache and chest pressure. Had NSTEMI Completed while there. To go back in 4-6 weeks to have another done. Initial contact with patient post discharge, spoke to patient. Patient identified by name and . TRANSITION CARE MANAGEMENT INITIAL OUTREACH DOCUMENTATION: SUMMARY: -Pt discharged from [facility] on 04/06/2023. -Admitted for: Non-ST elevated myocardial infraction. Do you have a hospital follow up appointment with your PCP? Appointment on 04/17/[address] Ramirez. Yes. Remind patient of appointment date, time, and location. If not within 14 calendar days of discharge - please reschedule accordingly. MEDICATIONS: Many patients have questions or concerns about their medications once they are home. Were you prescribed any new medications? Yes Were you told to hold any medications? No Were any of your medications discontinued? Yes; Atorvastatin 20mg daily. Do you have any questions about getting or taking your medications? No Your discharge instructions/After visit Summary (AVS) are important in guiding you through the recovery process. Is there anything I might help you understand? No Do you have all the necessary equipment and supplies at home? Yes Medical records from recent hospitalization: Epic in scanning; and printed from [facility]. documented in this encounterOhiohealth [facility]11-11-2023 Discharge summary Author Dion Sabillon [facility] April 08, 2023 9:24am Note Date/Time April 08, 2023 9:08am [facility] Medical Records Department [address] [place] [id number] Instructions for Home/Discharge Instructions 04/08/23905 MR#: [id number] Acct: [id number] Name: ALISSA ACPPS Rep #:[id number] : 1950 72 From: Dion Sabillon DO PCP: Dr. Aleksandr Ramirez MD Status :ADM IN Discharge Instructions Diet Discharge Diet: 1800 Calorie Control Diet Activity Discharge Activity: Return to Normal Activity Weight Bearing Status: Full weight bearing Follow Up Care Test Results: Test results from this visit will be discussed in further detail at your follow- up appointment, if applicable. Discharge Plan Admission Admit Date/Time: 04/06/23 15:00 Primary Reason for Your Visit: Non STEMI Attending Provider: Dion Sabillon Primary Care Provider: Aleksandr Ramirez Consulting Providers: Indu Messer; Jf Dow Discharge Orders/Prescriptions Prescriptions: New carvedilol 6.25 mg Tablet 6.25 mg PO BID Qty: 60 0RF aspirin 81 mg Tablet,Delayed Release (Dr/Ec) 81 mg PO DAILY@0800 Qty: 1 0RF Brilinta 90 mg Tablet 90 mg PO BID Qty: 60 0RF Continued valsartan 320 mg tablet 320 mg PO DAILY omeprazole 20 mg Capsule,Delayed Release(Dr/Ec) 20 mg PO DAILY metformin 500 MG tablet 500 mg PO DAILY Qty: 1 0RF Rx Instructions: start on 04/09/23 Changed atorvastatin 20 mg tablet 40 mg PO QHS Qty: 1 0RF Referrals / Follow Up: Aleksandr Ramirez MD [Primary Care Provider] - See Referral Note (as scheduled) Albin Leon NP, INFORMATION SYSTEMS SECURITY DEVELOPER-C [Med Staff - Adv Practice Prof] - 05/02/23 2:30 am Disposition Disposition (needs filled in before D/C Order can be placed): Home, Self Care 04/08/23 09<Electronically signed by Dion Sabillon DO>Dion Sabillon DO CC: Dr. Aleksandr Ramirez MD; Dr. Indu Messer MD; Dr. Jf Dow MD ~ Signed [facility] Work Phone: 1(951) 840-903011-10-2023 Progress note Author Dion [facility] April 07, 2023 4:10pm Note Date/Time April 07, 2023 4:09pm [facility] Medical Records Department [address] [place] [address] Progress Note - Hospitalist 04/07/23 1605 MR#: [id number] Acct: [id number] Name: ALISSA CAPPS Rep #:[id number] : 1950 72 From: Dion Sabillon DO PCP: Dr. Aleksandr Ramirez MD Status :ADM IN Location: [place] [address] Reason for Visit Reason for Visit: Diagnoses ST elevation (STEMI) myocardial infarction of unspecified site (04/06/23) Non-ST elevation (NSTEMI) myocardial infarction (04/06/23) Subjective Subjective Patient was seen and examined today, I talked briefly with cardiology about his care. Patient complained of some shortness of breath today but his pulse ox was97% on room air. Objective Data Objective Data Vital Signs: Vital Signs Temp Pulse Resp BP Pulse Ox O2 Del Method O2 Flow Rate 97.8 F 87 18 125/75 H 99 Room Air 2 04/07/23 15:28 04/07/23 15:28 04/07/23 15:28 04/07/23 15:28 04/07/23 15:28 04/07/23 15:28 04/07/23 09:17 Oxygen Flow Rate (L/min) 2 Oxygen Delivery Method Room Air Weight: 116.4 kg Body Mass Index (BMI) 38.9 Intake & Output: Intake and Output for Last 24 Hours 04/05/23 04/06/23 04/07/23 23:59 23:59 23:59 Intake Total 150 / 150 654 / 654 Output Total 1300 / 1300 Balance -1150 / -1150 654 / 654 Lab / Micro Data 04/07/23 04:00 04/07/23 04:00 Labs: Laboratory Results - last 24 hr 04/06/23 21:25: POC Glucose 218 H 04/06/23 22:10: Sodium 137, Potassium 3.8, Chloride 107, Carbon Dioxide 27.0, Anion Gap 3 L, BUN 17, Creatinine 1.24, Estim Creat Clear Calc 53.63, Est GFR (MDRD) Af Amer 74, Est GFR (MDRD) Non-Af 61, BUN/Creatinine Ratio 13.7, Glucose 195 H, Calcium 8.4 L 04/07/23 04:00: WBC 11.1 H, RBC 5.20, Hgb 15.7, Hct 46.4, MCV 89.2, MCH 30.2, MCHC 33.8, RDW Std Deviation 41.0, RDW Coeff of Aiyana 12.6, Plt Count 217, MPV 9.4, Immature Gran % (Auto) 0.400, Neut % (Auto) 73.3 H, Lymph % (Auto) 14.3 L, Taney % (Auto) 10.5 H, Eos % (Auto) 1.1, Baso % (Auto) 0.4, Absolute Neuts (auto)8.2 H, Absolute Lymphs (auto) 1.59, Nucleated RBC % 0, Sodium 138, Potassium 3.9, Chloride 106, Carbon Dioxide 27.0, Anion Gap 5, BUN 15, Creatinine 1.18, Estim Creat Clear Calc 56.36, Est GFR (MDRD) Af Amer 78, Est GFR (MDRD) Non-Af 65, BUN/Creatinine Ratio 12.7, Glucose 157 H, Calcium 8.5, Magnesium 2.2, Total Bilirubin 0.80, AST 394 H, ALT 85 H, Alkaline Phosphatase 137 H, Troponin I HighSens > [id number] H*, Total Protein 6.9, Albumin 3.2, Globulin 3.7, Albumin/GlobulinRatio 0.9 04/07/23 06:50: POC Glucose 178 H 04/07/23 11:14: POC Glucose 145 H Physical Exam Const alert, oriented x3, no apparent distress, average body habitus and healthy appearing General Appearance: cooperative, well kempt and well developed Orientation / Consciousness: awake, oriented to person, oriented to place and oriented to time HEENT normocephalic, head/scalp atraumatic and moist oral mucous membranes Eyes PERRL, EOMs intact bilaterally and conjunctivae normal Neck supple, no JVD, thyroid normal and no carotid bruits General: trachea midline Resp normal respiratory effort, no retractions, no use of accessory muscles and clearto auscultation bilaterally Auscultation: Negative for rales, rhonchi or wheezes Cardio regular rate, regular rhythm, S1 normal heart sound, S2 normal heart sound, no murmurs, no rub and no gallops GI normal to inspection, nondistended, normoactive bowel sounds, soft to palpation,non-tender and non-distended Extremity no clubbing, cyanosis or edema Skin no rashes or lesions noted General Skin Exam: no breakdown Neuro oriented x3, CN's II-XII intact bilaterally, moves all extremities, no focal motor deficits and no sensory deficits noted Sensorium / Orientation: awake, alert, oriented to person, oriented to place andoriented to time Speech: speech normal Psych affect normal Assessment & Plan Assessment/Plan (1) Non-STEMI (non-ST elevated myocardial infarction): PLAN: Plan 1. Eyx-UTEFP-pnazzdh will remain on his present medications with adjustment percardiology #2 type 2 diabetes-patient's blood sugar will be monitored, sliding scale insulin will be administered as needed #3 GERD-patient was on a PPI #4 essential hypertension-patient is on valsartan, blood pressure will be monitored STEMI was ruled out Total clinical time spent by myself addressing the patient's medical issues, reviewing all of his data, and collaborating with patient's care team: 25 minutes Charges/Coding Visit Charges Inpatient E&M: 45962 Subs Hosp L1 04/07/23 1610 <Electronically signed by Dion Sabillon DO> Cosigner Signature (if applicable): CC: ~ Signed [facility] Work Phone: 1(504) 954-257411-10-2023 Chief complaint+Reason for visit Narrative * Chief Complaint S/P [facility] STEMI 04/07 STAGED PCI W NN CAD STATGE PROCEDURE CAD STATGE PROCEDURE PCI with stenting 4-6 W FU PCI with coronary stent PCI with coronary stent Atherosclerotic heart disease of mashpee coronary a PCI with coronary stent Reason for Visit Hyperlipidemia Ischemic cardiomyopathy Stented coronary artery Ischemic cardiomyopathy Stented coronary artery Hyperlipidemia Ischemic cardiomyopathy Stented coronary artery [facility] Work Phone: [phone]) 322-992911-09-2023 History and physical note Author Jf Dow [facility] April 06, 2023 6:16pm Note Date/Time April 06, 2023 2 :29pm [facility] Medical Records Department [address] [place] [address] H&P Exam - Hospitalist 04/06/23 1428 MR#: [id number] Acct: [id number] Name: ALISSA CAPPS Rep #:[id number] : 1950 72 From: Jf scott MD PCP: Dr. Aleksandr Ramirez MD Status :ADM IN Location: [facility] ANU304- 1 HPI - General General Date of Admission: 04/06/23 HPI Narrative ALISSA CAPPS, is a 72 M who presents to the hospital with headaches and chest pain. 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 At that point he and his started driving down towards [place] because of the persistent chest pain they went to a fire station where they did an EKG that showed some inferiorST changes, the initial twelve-lead EKG looked okay other than a left axis deviation however a repeat EKG on leads II, III and aVF showed what appeared to be ST elevations that were still present on an EKG done a minute and a half later. They sent him up here to the ER where an EKG on arrival did not show significant ST changes in the inferior leads. During this time the chest pain has waxed and waned in intensity and has migrated more over to his left side andis now up into his jaw. D-dimer is elevated and initially a CTA of the chest was again to be done however given the evaluation of the EKGs cardiology is going to take for heart cath this afternoon. [facility] Medical History Alcohol abuse Diabetes Former smoker Hypertension Wears hearing aid in both ears Home Medications atorvastatin 20 mg tablet 20 mg PO QHS cholesterol 07/19/17 [History Last Taken 04/05/23] metformin 500 mg tablet 500 mg PO DAILY diabetes 01/06/21 [History Last Taken 04/06/23] valsartan 320 mg tablet 320 mg PO DAILY 01/19/21 [History Last Taken 04/06/23] omeprazole 20 mg capsule,delayed release 20 mg PO DAILY 03/21/21 [History Last Taken 04/06/23] Allergy/AdvReac Type Severity Reaction Status Date / Time chlorhexidine Allergy Mild HIVES Verified 04/06/23 13:05 Family History Father Diabetes Mother Hypertension Surgical History History of cholecystectomy S/P carpal tunnel release S/P cholecystectomy S/P hernia repair Social History household members: spouse housing: house Smoking Status: Former smoker alcohol intake: current alcohol intake frequency: other substance use type: does not use ROS Constitutional Constitutional: Denies chills, fatigue, fever(s) or malaise Eyes Eyes: Denies blurry vision ENT HEENT: Denies headache(s) or nasal discharge Cardiovascular Cardiovascular: Reports chest pain; Denies dyspnea on exertion or syncope Respiratory/Chest Respiratory/Chest: Denies cough, shortness of breath at rest or shortness of breath with exertion Gastrointestinal Gastrointestinal: Denies constipation, diarrhea, nausea or vomiting Genitourinary Genitourinary: Denies dysuria Neurologic Neurologic: Reports headache(s); Denies focal weakness, numbness or tremor(s) Psychiatric Psychiatric: Denies anxiety or depression Vital Signs Vital Signs Vital Signs: 04/06/23 12:58 04/06/23 13:01 04/06/23 13:06 Temperature 97.2 F L Temperature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 daily. Omeprazole Magnesium (PRILOSEC OTC) 20 mg tablet Take 1 tablet by mouth once daily. Multivitamin capsule Take 1 capsule by mouth once daily. Compression Knee Highs KNEE HIGH COMPRESSION STOCKINGS 30-40 MM. DX: EDEMA No current facility-administered medications for this visit. ALLERGIES No Known Allergies PAST SURGICAL HISTORY Procedure Laterality Date CARPAL [...] Social History Tobacco Use Smoking status: Former Packs/day: 0.50 Years: 20.00 Pack years: 10.00 Types: Cigarettes Start date: 07/31/1974 Quit date: 07/31/1994 Years since quittin.7 Smokeless tobacco: Former Vaping Use Vaping Use: Never used Substance Use Topics Alcohol use: Yes Alcohol/week: 2.5 standard drinks Types: 1 Cans of Beer (12oz) per [...] Objective: Patient presents to clinic ambulating in [place] Constitutional: Pt is a well developed 71 year old male who is alert, oriented, cooperative and in no apparent distress. Eyes: Following during examination. No redness or drainage. Respiratory: RR normal and nonlabored. Even breathing. No evidence of distress. Psychology: Patient is engaged during conversation. Normal affect and mood. Does not appear depressed or anxious. Vasc: DP and PT pulses are palpable bilateral. CFT is less than 5 seconds bilateral. Skin temperature is warm to warm proximal to distal bilateral. There is no edema or varicosities noted. Hair growth decreased. Neuro: Protective sensation is intact to the foot and toes when tested with the 5.07 SWM bilateral.Vibratory sensation is decreased at the hallux bilateral. + Significant neurological defecits. Derm: Inspection and palpation performed. Nails 1-5 b/l are normal in length and thickness. Skin isof normal turgor and texture. Hyperkeratosis noted to not present. NO ulcerations, scars, verruca or other lesions noted. Maceration is noted between b/l 4th and 3rd interspace Ortho: Ankle joint DF is full with the knee extended and full with knee flexed. No pain or crepitusnoted. STJ, MTJ ROM are full and free of pain or crepitus. Muscle strength is 5/5 for dorsiflexors,plantarflexors, inverters, everters. Digital deformities include no. Mild pain to left arch but nothing severe Assessment: (E11.40) Type 2 diabetes mellitus with diabetic neuropathy, without long-term current use of insulin ([facility]) Plan: 1. Patient was seen and evaluated. 2. Patient was instructed on the continued importance of diabetic foot care along with proper diet and keeping their blood sugar under control to prevent complications. Instructions given both oral and written. 3. Discussed left arch pain. Recommend stretching, use of good protective shoes and massage. Offered xray but patient declined 4. Discussed getting pvr but he had these done in 2019 and were normal and he has no other risk factors. He declined new pvr 5. Recommend drying between toes. Use of betadine prn 6. F/u in1 year Alissa Gutierrez DPM * Elinor Salvador LPN - 04/26/2022 9:02 AM EST AMB ROOMING INTAKE FLOWSHEET DATA Pain Pain Level: 4 Pain Location: Foot-Left Description: Sharp Duration Amount of Time: 1 Duration Units: Weeks Frequency: Intermittent Intervention/Comfort measure: Reposition, Relaxation, Medication Patient presents with: Left Foot - New, Diabetic Foot Care Right Foot - New, Diabetic Foot Care Elinor Salvador LPN documented in this encounterOhio[facility]11-23-2022 Miscellaneous Notes* Telephone Encounter - Elizabeth West LPN - 04/20/2022 1:58 PM EST Patient notified of results, verbalizes understanding of instructions. Elizabeth West LPN * Telephone Encounter - Son Ramirez MD - 04/20/2022 1:44 PM EST Alk phos remains elevated with high liver fraction. Recommend US of the liver for further evaluation. documented in this encounterOhiohealth [facility]11-21-2022 History of Present illness Narrative* Son Ramirez MD - 04/18/2022 8:52 AM EST Chief Complaint Patient presents with: Follow Up: 6 month- reporting over last couple weeks when he gets up out of bed will experience brief dizziness/vertigo-patient thinks me be not enough fluids. HPI Alissa Capps is a 71 year old male who presents here today for 6 month follow up. DIABETES MELLITUS: Mr. Capps was last seen 6 months ago. Since our last visit he denies excessive thirst or increased frequency of urination, numbness, tingling or pain in extremities, new or unusual visual symptoms, and low sugar/hypoglycemic reactions. Follows a diabetic diet most of the time. He is compliant with medication(s) and is tolerating med(s) without any side effects. He reports checking his glucose on a infrequent to not at all basis. Patient's last HgA1C was Hemoglobin A1C (%) Date Value 04/14/2022 6.4 10/13/2021 6.6 04/16/2021 6.5 10/19/2020 6.7 ) Last Ophthalmology exam was within the past 12 months-09/17 no retinopathy Last Podiatry exam was more than 12 months. BP elevated on initial check today. Taking Valsartan as prescribed. Runs 120- 130/80's on current regimen. Notes that he feels a little unsteady on his feet when he gets up to use the restroom at night. Denies lightheadedness, dizziness or falls. Past medical history, appointments, medications, allergies reviewed. 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+ years, ran over by a sow Diabetes mellitus type II, controlled (HCC) HTN (hypertension) Mild nonproliferative diabetic retinopathy of both eyes without macular edema associated with type 2 diabetes mellitus (HCC) 04/2020 Obesity Thrombocytopenia (HCC) Previous Surgical History PAST SURGICAL HISTORY Procedure [...] Problems Mother Diabetes Father Patient Allergies ALLERGIES No Known Allergies Current Medications Current Outpatient Medications on File Prior to Visit Medication Sig metFORMIN (GLUCOPHAGE) 500 mg tablet Take 1 tablet by mouth daily with breakfast. atorvastatin (LIPITOR) 20 mg tablet Take 1 tablet by mouth daily at bedtime. For cholesterol. Omeprazole Magnesium (PRILOSEC OTC) 20 mg tablet Take 1 tablet by mouth once daily. Multivitamin capsule Take 1 capsule by mouth once daily. valsartan (DIOVAN) 320 mg tablet Take 1 tablet by mouth once daily. Compression Knee Highs KNEE HIGH COMPRESSION STOCKINGS 30-40 MM. DX: EDEMA No current facility-administered medications on file prior to visit. Social History Social History Tobacco Use Smoking status: Former Packs/day: 0.50 Years: 20.00 Pack years: 10.00 Types: Cigarettes Start date: 07/31/1974 Quit date: 07/31/1994 Years since quittin.7 Smokeless tobacco: Former Vaping Use Vaping Use: Never used Substance Use Topics Alcohol use: Yes Alcohol/week: 2.5 standard drinks Types: 1 Cans of Beer (12oz) per [...] for lesions, rash, and itching EXAM: BP 136/76 Pulse 75 Resp 16 Wt 117.5 kg (259 lb) SpO2 97% BMI 38.25 kg/m General Appearance: Well appearing, alert, in no acute distress, well-hydrated, well nourished.. Skin: Skin color, texture, turgor normal, no suspicious rashes or lesions. Lungs: Lungs clear to auscultation. No wheezing, rhonchi, rales.. Heart: RRR without murmur, gallop, or rubs. No ectopy. Abdomen: Normal abdominal exam, Abdomen soft, non-tender. Bowel sounds normal. No masses, organomegaly. Extremities: Edema: Trace edema to mid singer bilaterally. Feet: Shoes and socks removed, No deformities, ulcers, calluses, normal distal pulses, and not sensitive to monofilament Lateral aspects of feet Health Maintenance List ABDOMINAL AORTIC ANEURYSM SCREENING Never done BP CONTROLLED (<130/80) Never done SHINGRIX VACCINE(1 of 2) Never done COVID-19 VACCINE(4 - Booster for Moderna series) due on 05/28/2021 ADVANCE DIRECTIVE DISCUSSION Never done DEPRESSION ASSESSMENT Never done DIABETIC FOOT EXAM due on 04/16/2022 DTAP,TDAP,TD(1 - Tdap) due on 10/15/2022 DILATED RETINAL EXAM due on 09/09/2022 HBA1C due on 10/12/2022 LDL CHOLESTEROL due on 10/13/2022 ANNUAL PCP TEAM CHRONIC DISEASE VISIT due on 10/15/2022 URINE ALBUMIN:CREATININE RATIO due on 04/14/2023 COLORECTAL CANCER SCREENING due on 03/29/2031 INFLUENZA Completed HEPATITIS C SCREENING Completed PNEUMOCOCCAL: 65+ Completed Data reviewed Component Latest Ref Rng & Units 10/13/2021 04/14/2022 WBC 3.70 - 11.00 k/uL 6.63 RBC 4.20 - 6.00 m/uL 5.21 Hemoglobin 13.0 - 17.0 g/dL 15.7 Hematocrit 39.0 - 51.0 % 45.1 MCV 80.0 - 100.0 fL 86.6 MCH 26.0 - 34.0 pg 30.1 MCHC 30.5 - 36.0 g/dL 34.8 RDW-CV 11.5 - 15.0 % 12.6 Platelet Count 150 - 400 k/uL 192 MPV 9.0 - 12.7 fL 9.2 Neut% % 61.3 Abs Neut (ANC) 1.45 - 7.50 k/uL 4.07 Lymph% % 26.4 Abs Lymph 1.00 - 4.00 k/uL 1.75 Taney% % 9.2 Abs Taney <0.87 k/uL 0.61 Eosin% % 2.0 Abs Eosin <0.46 k/uL 0.13 Baso% % 0.9 Abs Baso <0.11 k/uL 0.06 Immature Gran % % 0.2 IMMATURE GRANS (ABS) <0.10 k/uL <0.03 NRBC /100 WBC 0.0 Absolute nRBC <0.01 k/uL <0.01 DTYPE Auto Protein, Total 6.3 - 8.0 g/dL 6.6 6.3 Albumin 3.9 - 4.9 g/dL 3.9 3.9 Calcium 8.5 - 10.2 mg/dL 8.7 8.7 Bilirubin, Total 0.2 - 1.3 mg/dL 0.8 0.7 Alkaline Phosphatase 38 - 113 U/L 137 (H) 141 (H) AST 14 - 40 U/L 17 16 ALT 10 - 54 U/L 22 25 Glucose 74 - 99 mg/dL 150 (H) 150 (H) BUN 9 - 24 mg/dL 19 19 Creatinine 0.73 - 1.22 mg/dL 1.09 1.03 Sodium 136 - 144 mmol/L 138 140 Potassium 3.7 - 5.1 mmol/L 4.0 4.1 Chloride 97 - 105 mmol/L 107 (H) 106 (H) CO2 22 - 30 mmol/L 22 26 Anion Gap 9 - 18 mmol/L 9 8 (L) eGFR >=60 mL/min/1.73m 73 79 Cholesterol, Total <200 mg/dL 117 Triglyceride <150 mg/dL 55 HDL Cholesterol >39 mg/dL 39 (L) Non HDL Cholesterol <130 mg/dL 78 Fasting Time hrs 12 VLDL Cholesterol <30 mg/dL 11 TC:HDL Ratio <5.10 3.00 LDL Cholesterol <100 mg/dL 67 LDL:HDL Ratio <2.54 1.72 Creatinine, Ur Random (UCRR) 20.0 - 300.0 mg/dL 144.1 Albumin, Urine Random mg/L 74.2 Albumin/Creat Ratio <30 mg/g 51 (H) Hemoglobin A1C 4.3 - 5.6 % 6.6 (H) 6.4 (H) Estimated Average Glucose mg/dL 143 137 ASSESSMENT/PLAN: 1. Controlled type 2 diabetes mellitus without complication, without long-term current use of insulin (HCC) - ICD9: 250.00, ICD10: E11.9 (primary diagnosis) Controlled. - Continue current medications - Referral to Podiatry for evaluation and management of neuropathy - Encouraged regular aerobic exercise and weight loss - Follow up in 6 months, sooner should any other issues arise. - Discussed diabetic education issues of custodial diabetic complications, hypoglycemic symptoms, hyperglycemic symptoms, diet, medications- side effects and need for compliance, importance of exercise, importance of appointments with [facility], and importance of annual examinations with Opthalmology with patient. - CONSULT TO PODIATRY 2. Type 2 diabetes mellitus with diabetic neuropathy, without long-term current use of insulin (HCC) - ICD9: 250.60, 357.2, ICD10: E11.40 - CONSULT TO PODIATRY 3. Primary hypertension - ICD9: 401.9, ICD10: I10 - good control - Continue current medication(s) - Encouraged dietary sodium restriction/DASH diet - Recommended regular aerobic exercise. - Reviewed risks of HTN and principles of treatment - Goal of BP <140/90 4. Elevated alkaline phosphatase level - ICD9: 790.5, ICD10: R74.8 recheck - ALK PHOS ISOENZYM BL - GGT BLD 5. RAMOS (nonalcoholic steatohepatitis) - ICD9: 571.8, ICD10: K75.81 LFTs normal aside from alk phos. Continue to work on healthy diet, exercise, and weight loss. 6. Class 2 obesity without serious comorbidity with body mass index (BMI) of 35.0 to 35.9 in adult,unspecified obesity type - ICD9: 278.00, V85.35, ICD10: E66.9, Z68.35 Stable - Behavioral intervention 7. Bilateral lower extremity edema - ICD9: 782.3, ICD10: R60.0 Trace edema today. Has compression stockings he is not wearing now. Discussed low sodium diet, leg elevation, stockings daily Red flags for re-assessment reviewed with patient in detail. 8. Unsteady gait - ICD9: 781.2, ICD10: R26.81 Occurs only at night. Advised to push PO fluids during the day and stand slowly when getting out ofbed. Call if not improving in the next couple weeks. 9. Need for COVID-19 vaccine - ICD9: V04.89, ICD10: Z23 - [employer] COVID-19 BIVALENT BOOSTER VACCINE, AGE 12+ YR 10. History of tobacco use - ICD9: V15.82, ICD10: Z87.891 - US SCREENING FOR AAA Son Ramirez MD documented in this encounterOhio[facility]06-16-2022 Miscellaneous Notes* Telephone Encounter - Viri Flores [facility] - 11/11/2021 9:19 AM EDT Pharmacy verified in [facility] Patient has been identified by name and date of : Yes Patient aware RX will be sent to pharmacy. No need to notify patient. Spouse phones for refill(s): Pending Prescriptions Disp Refills METFORMIN 500 MG TABLET 90 tablet 1 Sig: Take 1 tablet by mouth daily with breakfast. KATHRYN: No ATORVASTATIN 20 MG TABLET 90 tablet 1 Sig: Take 1 tablet by mouth daily at bedtime. For cholesterol. KATHRYN: No VALSARTAN 320 MG TABLET 30 tablet 5 Sig: Take 1 tablet by mouth once daily. KATHRYN: No OMEPRAZOLE MAGNESIUM 20 MG TABLET,DELAYED RELEASE Sig: Take 1 tablet by mouth once daily. KATHRYN: No Date of last office visit : 10/15/2021 Date of next office visit : 04/18/2022 Last 2 Encounter Wt Readings: Date: Wt: 10/15/2021 117.1 kg (258 lb 3.2 oz) 08/27/2021 117.8 kg (259 lb 9.6 oz) Please advise. Viri Flores Pss documented in this encounterOhiohealth [facility]05-25-2022 Miscellaneous Notes* Addendum Note - Son Ramirez MD - 10/20/2021 11:22 AM EDT Addended by: SON RAMIREZ on: 10/20/2021 11:22 AM Modules accepted: Orders documented in this encounterOhiohealth [facility]05-20-2022 History of Present illness Narrative* Son Ramirez MD - 10/15/2021 9:21 AM EDT Chief Complaint Patient presents with: Follow Up: 6 month Refill Request HPI Alissa Capps is a 71 year old male who presents here today for 6 month follow up. Left shoulder surgery went well without complications. S/p left shoulder arthroscopy, subacromial decompression, biceps tenotomy, arthroscopic rotator cuff repair, and lipoma excision on 04/[address] Mccarty. Shoulder feels much better and is able to perform ADLs and work without pain. Complaining of persistent dry cough x5-6 months without SOB, wheezing, chest congestion, heartburn.Treating with OTC cough medicine and robitussin which does seem to help. Admits to itchy/watery eyes without sneezing or post nasal drip. DIABETES MELLITUS: Mr. Capps was last seen 6 months ago. Since our last visit he denies excessive thirst or increased frequency of urination, numbness, tingling or pain in extremities, new or unusual visual symptoms and low sugar/hypoglycemic reactions. Follows a diabetic diet most of the time. He is compliant with medication(s) and is tolerating med(s) without any side effects. He reports checking his glucose on a infrequent to not at all basis. Patient's last HgA1C was Hemoglobin A1C (%) Date Value 10/13/2021 6.6 04/16/2021 6.5 10/19/2020 6.7 ) Last Ophthalmology exam was within the past 12 months Last Podiatry exam was within the past 12 months Discussed need for 2nd COVID booster. Past medical history, appointments, medications, allergies reviewed. 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+ years, ran over by a sow Diabetes mellitus type II, controlled (HCC) HTN (hypertension) Mild nonproliferative diabetic retinopathy of both eyes without macular edema associated with type 2 diabetes mellitus (HCC) 04/2020 Obesity Thrombocytopenia (HCC) Previous Surgical History PAST SURGICAL HISTORY Procedure Laterality Date CARPAL TUNNEL right COLONOSCOPY 2004, 2015 COLONOSCOPY FLX DX W/COLLJ SPEC WHEN PFRMD 03/29/2021 -normal biopsies, per DP repeat in 10 years LAPAROSCOPY REPAIR INCISIONAL HERNIA REDUCIBLE 06/19/2017 Hernia repair, umbilical/incisional [facility] - laparoscopic - [address] mesh LAPS SURG CHOLECYSTECTOMY W/CHOLANGIOGRAPHY 08/19/2014 attempted, failed IOC, fatty liver Family History FAMILY HISTORY Problem Relation Age of Onset No Known Problems Mother Diabetes Father Patient Allergies ALLERGIES No Known Allergies Current Medications Current Outpatient Medications on File Prior to Visit Medication Sig Omeprazole Magnesium (PRILOSEC OTC) 20 mg tablet Take 20 mg by mouth once daily. valsartan (DIOVAN) 320 mg tablet Take 1 tablet by mouth once daily. metFORMIN (GLUCOPHAGE) 500 mg tablet Take 1 tablet by mouth daily with breakfast. atorvastatin (LIPITOR) 20 mg tablet Take 1 tablet by mouth daily at bedtime. For cholesterol. Multivitamin capsule Take 1 capsule by mouth once daily. Compression Knee Highs KNEE HIGH COMPRESSION STOCKINGS 30-40 MM. DX: EDEMA No current facility-administered medications on file prior to visit. Social History Social History Tobacco Use Smoking status: Former Smoker Packs/day: 0.50 Years: 20.00 Pack years: 10.00 Types: Cigarettes Start date: 07/31/1974 Quit date: 07/31/1994 Years since quittin.2 Smokeless tobacco: Former User Vaping Use Vaping Use: Never used Substance Use Topics Alcohol use: Yes Alcohol/week: 2.5 standard drinks Types: 1 Cans of Beer (12oz) per week Comment: beer on weekend. Drug use: No Review of Symptoms REVIEW OF SYSTEMS GENERAL: No weight loss, malaise or fevers RESPIRATORY: See HPI CARDIOVASCULAR: Negative for chest pain, leg swelling, hypertension, CHF or palpitations GI: No nausea, vomiting, or diarrhea SKIN: Negative for lesions, rash, and itching EXAM: BP 132/82 Pulse 88 Resp 16 Wt 117.1 kg (258 lb 3.2 oz) SpO2 96% BMI 38.13 kg/m General Appearance: Well appearing, alert, in no acute distress, well-hydrated, well nourished.. Skin: shallow 1cm laceration on right distal singer without surrounding erythema or drainage. Lungs: Lungs clear to auscultation. No wheezing, rhonchi, rales.. Heart: RRR without murmur, gallop, or rubs. No ectopy. Abdomen: Normal abdominal exam, Abdomen soft, non-tender. Bowel sounds normal. No masses, organomegaly. Extremities: No deformities, edema, skin discoloration, clubbing or cyanosis. Good capillary refill. Health Maintenance List ABDOMINAL AORTIC ANEURYSM SCREENING Never done BP CONTROLLED (<130/80) Never done SHINGRIX VACCINE(1 of 2) Never done DTAP,TDAP,TD(1 - Tdap) due on 10/06/2017 ADVANCE DIRECTIVE DISCUSSION Never done COVID-19 VACCINE(4 - Booster for Moderna series) due on 07/31/2021 DEPRESSION SCREENING due on 01/24/2022 HBA1C due on 04/15/2022 URINE ALBUMIN:CREATININE RATIO due on 04/16/2022 DIABETIC FOOT EXAM due on 04/16/2022 ANNUAL PCP TEAM CHRONIC DISEASE VISIT due on 04/16/2022 DILATED RETINAL EXAM due on 09/09/2022 LDL CHOLESTEROL due on 10/13/2022 COLORECTAL CANCER SCREENING due on 03/29/2031 INFLUENZA Completed HEPATITIS C SCREENING Completed PNEUMOVAX AGE 65 AND OVER WITH 5YR LOOKBACK Completed MENINGOCOCCAL CONJUGATE Aged Out Data reviewed Component Latest Ref Rng & Units 04/16/2021 10/13/2021 WBC 3.70 - 11.00 k/uL 7.57 6.63 RBC 4.20 - 6.00 m/uL 5.41 5.21 Hemoglobin 13.0 - 17.0 g/dL 16.0 15.7 Hematocrit 39.0 - 51.0 % 47.9 45.1 MCV 80.0 - 100.0 fL 88.5 86.6 MCH 26.0 - 34.0 pg 29.6 30.1 MCHC 30.5 - 36.0 g/dL 33.4 34.8 RDW-CV 11.5 - 15.0 % 12.5 12.6 Platelet Count 150 - 400 k/uL 147 (L) 192 MPV 9.0 - 12.7 fL 10.8 9.2 Neut% % 56.2 61.3 Abs Neut (ANC) 1.45 - 7.50 k/uL 4.25 4.07 Lymph% % 29.9 26.4 Abs Lymph 1.00 - 4.00 k/uL 2.26 1.75 Taney% % 10.2 9.2 Abs Taney <0.87 k/uL 0.77 0.61 Eosin% % 2.6 2.0 Abs Eosin <0.46 k/uL 0.20 0.13 Baso% % 1.1 0.9 Abs Baso <0.11 k/uL 0.08 0.06 Immature Gran % % 0.2 IMMATURE GRANS (ABS) <0.10 k/uL <0.03 NRBC /100 WBC 0.0 Absolute nRBC <0.01 k/uL <0.01 <0.01 DTYPE Auto Nucleated Reds 0 /100 WBC 0.0 Diff Type Auto Diff Protein, Total 6.3 - 8.0 g/dL 6.6 Albumin 3.9 - 4.9 g/dL 3.9 Calcium 8.5 - 10.2 mg/dL 8.7 Bilirubin, Total 0.2 - 1.3 mg/dL 0.8 Alkaline Phosphatase 38 - 113 U/L 137 (H) AST 14 - 40 U/L 17 ALT 10 - 54 U/L 22 Glucose 74 - 99 mg/dL 150 (H) BUN 9 - 24 mg/dL 19 Creatinine 0.73 - 1.22 mg/dL 1.09 Sodium 136 - 144 mmol/L 138 Potassium 3.7 - 5.1 mmol/L 4.0 Chloride 97 - 105 mmol/L 107 (H) CO2 22 - 30 mmol/L 22 Anion Gap 9 - 18 mmol/L 9 eGFR >=60 mL/min/1.73m 73 Cholesterol, Total <200 mg/dL 117 Triglyceride <150 mg/dL 55 HDL Cholesterol >39 mg/dL 39 (L) Non HDL Cholesterol <130 mg/dL 78 Fasting Time hrs 12 VLDL Cholesterol <30 mg/dL 11 TC:HDL Ratio <5.10 3.00 LDL Cholesterol <100 mg/dL 67 LDL:HDL Ratio <2.54 1.72 Total Cholesterol, Nonfasting <200 mg/dL 134 Triglycerides, Nonfasting <150 mg/dL 70 HDL Cholesterol, Nonfasting >39 mg/dL 43 LDL Cholesterol, Nonfasting <100 mg/dL 77 Non HDL Cholesterol, Nonfasting <130 mg/dL 91 VLDL Cholesterol, Nonfasting <30 mg/dL 14 Total Chol/HDL Ratio, Nonfasting <5.10 mg/dL 3.12 LDL/HDL Ratio, Nonfasting <2.54 mg/dL 1.79 Creatinine, Ur Random (UCRR) 20 - 300 mg/dL 123.2 Albumin, Urine Random mg/L 159.9 Albumin/Creat Ratio <30 mg/g 130 (H) Hemoglobin A1C 4.3 - 5.6 % 6.5 (H) 6.6 (H) Estimated Average Glucose mg/dL 140 143 ASSESSMENT/PLAN: 1. Controlled type 2 diabetes mellitus without complication, without long-term current use of insulin (HCC) - ICD9: 250.00, ICD10: E11.9 (primary diagnosis) Controlled. - Continue current medications - Blood glucose monitoring on a once a day schedule - Encouraged regular aerobic exercise and weight loss - Daily Asprin therapy recommended - Follow up in 6 months, sooner should any other issues arise. - Discussed diabetic education issues of pbx manager diabetic complications, hypoglycemic symptoms, hyperglycemic symptoms, diet, medications- side effects and need for compliance, importance of exercise and importance of annual examinations with Opthalmology with patient. 2. S/P left rotator cuff repair - ICD9: V45.89, ICD10: Z98.890 Healing well. F/u with optho recommendations. Red flags for re-assessment reviewed with patient in detail. 3. Primary hypertension - ICD9: 401.9, ICD10: I10 - good control - Continue current medication(s) - Encouraged dietary sodium restriction/DASH diet - Recommended regular aerobic exercise. - Reviewed risks of HTN and principles of treatment - Goal of BP <140/90 4. Persistent cough - ICD9: 786.2, ICD10: R05.3 Suspect 2/2 allergies. Discussed use of OTC antihistamines. Call if symptoms persist. 5. Allergic rhinitis, unspecified seasonality, unspecified trigger - ICD9: 477.9, ICD10: J30.9 See above. 6. Class 2 obesity without serious comorbidity with body mass index (BMI) of 35.0 to 35.9 in adult,unspecified obesity type - ICD9: 278.00, V85.35, ICD10: E66.9, Z68.35 Stable - Behavioral intervention 7. RAMOS (nonalcoholic steatohepatitis) - ICD9: 571.8, ICD10: K75.81 Work on weight loss. Will monitor LFTs. Son Ramirez MD documented in this encounterOhiohealth Van [facility]05-16-2022 Miscellaneous Notes* Telephone Encounter - Gloria Bustos LPN - 10/11/2021 4:07 PM EDT Tatianna called back, made aware provider placed labs for patient. Message below given. Voices understanding. Gloria Bustos LPN * Telephone Encounter - Son Ramirez MD - 10/11/2021 3:19 PM EDT Appropriate labs ordered for upcoming OV. Recommend he come in at least 2 days prior to appointmentso we can review labs at the time of his OV. * Telephone Encounter - Zahra Brown RN - 10/11/2021 2:00 PM EDT Patient's Tatianna calls and states that patient has appointment with provider on 10/15/2021. asking if there are any labs that provider wants patient to get done before appointment? Please review and advise, Zahra Brown RN documented in this encounterOhiohealth Van [facility]04-01-2022 Instructions* Patient Instructions* Angelika Torres APRN.JUNIOR DATABASE ADMINISTRATOR - 08/27/2021 10:08 AM EDT Ear Infection The inside or outside of your ear can become infected. If your outer ear or ear canal is swollen and infected, you have an outer ear infection. Your ear may itch or be red and swollen. Your ear may hurt or have drainage as well. This infection happens if germs enter your ears and cause a problem. This is more likely to happen if you have a wound in your ear. It can also happen if there is something in your ear or if your ear is wet for a long time. You may have signs a few days after swimming. This is why outer ear infections are often called swimmers ear. Long-term outer ear infections may be caused by: Allergic reaction Skin problems, such as eczema or psoriasis Chronic middle ear infections What care is needed at home? Ask your doctor what you need to do when you go home. Make sure you ask questions if you do not understand what the doctor says. This way you will know what you need to do. Take your drugs as ordered by your doctor. Be sure to treat an infection right away. This will help to keep it from spreading to other parts of your ear. Heat may help ease your ear pain. If your doctor tells you to use heat, put a heating pad or hot water bottle on your ear for no more than 20 minutes at a time. Never go to sleep with a heating pad on as this can cause evans. What follow-up care is needed? Your doctor may ask you to make visits to the office to check on your progress. Be sure to keep these visits. What problems could happen? Very bad infection Hearing problems What can be done to prevent this health problem? Keep your ears dry: Use a bathing cap or ear plugs when swimming. Use a towel to dry your ears when they are wet. Do not swim in dirty or polluted water. Avoid getting soap or other items in your ears. Do not scratch your ears. Do not put swabs or other objects in your ears. When do I need to call the doctor? Signs of infection. These include a fever of 100.4 F (38 C) or higher, chills, very bad sore throat, ear or sinus pain. Signs get worse You feel pain and there is redness of the bone behind your ear Drugs you are taking are not working for you Health problem is not better or you are feeling worse Helpful tips Talk to your doctor to see if there are drops you can use to help prevent the growth of germs. Outer ear infections are not contagious, but need treatment. documented in this encounterOhiohealth Van Wert [facility]04-01-2022 History of Present illness Narrative* Angelika Torres APRN.CNP - 08/27/2021 10:06 AM EDT CC: Patient presents with: Shortness of Breath: X2wks, denied chest pain Sore Throat: pain rated 5 x2 wks HPI: Alissa Capps is a 70 year old male who presents to the office with complaint of head congestion, cough, nonproductive and sore throat for 2 weeks. Symptoms are staying the same. Associated symptoms includes nasal congestion, facial pain/pressure and cough. Denies nausea, vomiting and diarrhea. Treatments tried include nothing so far. with no relief of symptoms. Sick contacts: unknown. History of asthma, frequent episodes of bronchitis, chronic bronchitis, bronchiectasis or COPD: No Smoker: No Seasonal/environmental allergies: No The ROS is otherwise negative. The patient's pmh, medications, allergies, and past visits are reviewed. PHYSICAL EXAM: BP 140/84 Pulse 89 Temp 36.3 C (97.4 F) Resp 18 Wt 117.8 kg (259 lb 9.6 oz) SpO2 96% BMI 38.34 kg/m General appearance: alert, cooperative, pleasant, in no acute distress Head: Normocephalic Eyes: EOM's intact, conjunctiva pink and moist, no icterus, sclera white, non-injected Ears: Right ear: External ear/canal- Normal, TM - erythematous, bulging. Left ear: External ear/canal- Normal, TM - clear with good landmarks Oropharynx:moist without lesions, No erythema, exudates or tonsillar hypertrophy. Heart: Negative. RRR without obvious murmur, gallop, or rubs. No ectopy. Lungs: clear to auscultation, without rales or wheeze, good air exchange PAST MEDICAL HISTORY Diagnosis Date Carpal tunnel syndrome on right s/p surgical correction Chronic left shoulder pain 20+ years, ran over by a sow Diabetes mellitus type II, controlled (HCC) HTN (hypertension) Mild nonproliferative diabetic retinopathy of both eyes without macular edema associated with type 2 diabetes mellitus (HCC) 04/2020 Obesity Thrombocytopenia (HCC) PAST SURGICAL HISTORY Procedure Laterality Date CARPAL TUNNEL right COLONOSCOP W/ OR W/O BRSH SPEC 03/29/2021 -normal biopsies, per DP repeat in 10 years COLONOSCOPY 2004, 2015 LAP CHOLECYSTECT/CHOLANGIOGRAPHY 08/19/2014 attempted, failed IOC, fatty liver LAP INC HERNIA REPAIR 06/19/2017 Hernia repair, umbilical/incisional [facility] - laparoscopic - [address] mesh ALLERGIES Patient has no known allergies. MEDICATIONS valsartan (DIOVAN) 320 mg tablet Take 1 tablet by mouth once daily. metFORMIN (GLUCOPHAGE) 500 mg tablet Take 1 tablet by mouth daily with breakfast. atorvastatin (LIPITOR) 20 mg tablet Take 1 tablet by mouth daily at bedtime. For cholesterol. Multivitamin capsule Take 1 capsule by mouth once daily. Compression Knee Highs KNEE HIGH COMPRESSION STOCKINGS 30-40 MM. DX: EDEMA amoxicillin (AMOXIL) 875 mg tablet Take 1 tablet by mouth twice daily for 7 days. FAMILY HISTORY Problem Relation Age of Onset No Known Problems Mother Diabetes Father Social History Tobacco Use Smoking status: Former Smoker Packs/day: 0.50 Years: 20.00 Pack years: 10.00 Types: Cigarettes Start date: 07/31/1974 Quit date: 07/31/1994 Years since quittin.0 Smokeless tobacco: Former User Vaping Use Vaping Use: Never used Substance Use Topics Alcohol use: Yes Alcohol/week: 2.5 standard drinks Types: 1 Cans of Beer (12oz) per week Comment: beer on weekend. Drug use: No ASSESSMENT/PLAN: 1. Non-recurrent acute suppurative otitis media of right ear without spontaneous rupture of tympanic membrane - ICD9: 382.00, ICD10: H66.001 Prescription instructions reviewed with patient as applicable. amoxicillin bid for 7 days. Potential red flag symptoms discussed with the patient. Reviewed appropriate action plan to take if red flagsymptoms occur. Will follow up if anything occurs. Patient agreeable to treatment plan. Angelika Torres APRN.CNP [facility] of Past illness Narrative* Problem Noted Date Resolved Date Colitis 03/29/2021 03/29/2021 documented as of this encounter (statuses as of 08/27/2021) [address]01-2021 History of Past illness Narrative* Problem Noted Date Resolved Date Colitis 03/29/2021 03/29/2021 documented as of this encounter (statuses as of 10/12/2021) [facility] History of Past illness Narrative* Problem Noted Date Resolved Date Colitis 03/29/2021 03/29/2021 documented as of this encounter (statuses as of 10/20/2021) [facility] History of Past illness Narrative* Problem Noted Date Resolved Date Colitis 03/29/2021 03/29/2021 documented as of this encounter (statuses as of 11/11/2021) [facility] History of Past illness Narrative* Problem Noted Date Resolved Date Colitis 03/29/2021 03/29/2021 documented as of this encounter (statuses as of 04/18/2022) [facility] History of Past illness Narrative* Problem Noted Date Resolved Date Colitis 03/29/2021 03/29/2021 documented as of this encounter (statuses as of 04/26/2022) [address]01-2021 History of Past illness Narrative* Problem Noted Date Resolved Date Colitis 03/29/2021 03/29/2021 documented as of this encounter (statuses as of 05/05/2022) [address]01-2021 History of Past illness Narrative* Problem Noted Date Resolved Date Colitis 03/29/2021 03/29/2021 documented as of this encounter (statuses as of 05/16/2022) [facility] History of Past illness Narrative* Problem Noted Date Resolved Date Colitis 03/29/2021 03/29/2021 documented as of this encounter (statuses as of 07/14/2022) [address]01-2021 History of Past illness Narrative* Problem Noted Date Diagnosed Date Resolved Date Colitis 03/29/2021 03/29/2021 Thrombocytopenia 10/23/2020 10/17/2022 documented as of this encounter (statuses as of 04/03/2023) [facility] History of Past illness Narrative* Problem Noted Date Diagnosed Date Resolved Date Colitis 03/29/2021 03/29/2021 Thrombocytopenia 10/23/2020 10/17/2022 documented as of this encounter (statuses as of 04/03/2023) [facility] History of Past illness Narrative* Problem Noted Date Diagnosed Date Resolved Date Colitis 03/29/2021 03/29/2021 Thrombocytopenia 10/23/2020 10/17/2022 documented as of this encounter (statuses as of 04/18/2023) [facility] History of Past illness Narrative* Problem Noted Date Diagnosed Date Resolved Date Colitis 03/29/2021 03/29/2021 Thrombocytopenia 10/23/2020 10/17/2022 documented as of this encounter (statuses as of 04/26/2023) [facility] History of Past illness Narrative* Problem Noted Date Diagnosed Date Resolved Date Colitis 03/29/2021 03/29/2021 Thrombocytopenia 10/23/2020 10/17/2022 documented as of this encounter (statuses as of 04/27/2023) [facility] NoteHNO ID: [id number] Author: RT Macarena(R) Service: Nuclear Medicine Author Type: Sock Examiner Type: Progress Notes Filed: 01/19/2021 9:07 AM Note Text: RADIOLOGY SERVICE PROGRESS NOTE SERVICE DATE: 01/19/2021 SERVICE TIME: 9:06 AM PATIENT IDENTITY VERIFICATION COMPLETED USING TWO (2) STANDARD IDENTIFIERS: Name and Date of confirmed by patient verbally FALL SCREENING: Has the patient had 2 falls in the last year or 1 fall with injury or currently using an Ambulatory Assistive Device (Walker, Cane, Wheelchair, Crutches, etc.)? No PATIENT GENDER DATA: .male ALLERGIES: Reviewed and unchanged MEDICATIONS REVIEWED: No PATIENT RELEVANT IMPLANT DATA REVIEWED: Not Applicable CREATININE: Creatinine Date Value Ref Range Status 01/18/2021 1.30 (H) 0.73 - 1.22 mg/dL Final 10/19/2020 1.31 (H) 0.73 - 1.22 mg/dL Final 04/13/2020 1.18 0.73 - 1.22 mg/dL Final eGFR-All Other Races Date Value Ref Range Status 01/18/2021 55 . Final Comment: eGFR (Estimated GFR) Units of measure: mL/min/1.73 meters squared eGFR is derived from the reexpressed MDRD Study equation using the following parameters: serum creatinine, age, gender and race. The creatinine assay has been calibrated to be traceable to IDMS. An eGFR <60 mL/min/1.73m2 for >3 months is consistent with chronic kidney disease. Refer to KDOQI guidelines for clinical interpretation. In patients with unstable renal function, e.g. those with acute kidney injury, the eGFR may not accurately reflect actual GFR. eGFR- Date Value Ref Range Status 01/18/2021 >60 Final P.O.C.T. RESULTS: N/A January 19, [address] PERFORMED: No IV SITE: Ambulatory: GA only - direct IV injection in the Right hand POST EXAM PIV STATUS: Not applicable PROCEDURE TYPE: NM INJECT: PET/CT BODY SCAN. 14.4 mCi F18 FDG. No other medications given.. ADMINISTRATION TIME: 0900 PATIENT DISCHARGED TO: Ambulatory patient, left GA department area. A Diagnostic radioactive procedure has taken place, with no further precautions necessary other than routine body substance precautions. More information regarding radiation safety can be found using this link: [email or web address] SIGNATURE: RT Macarena(R) PATIENT NAME: Alissa Capps DATE: January 19, 2021 TIME: 9:06 AM PAGER/CONTACT #:[facility] Author Indu Messer [facility] May 12, 2023 1:54pm Note Date/Time May 12, 2023 1:55pm [facility] Medical Records Department [address] [place] [address] [place] [address] Discharge Summary 05/12/23 1352 MR#: [id number] Acct: [id number] Name: ALISSA CAPPS Rep #:[id number] : 1950 72 From: Indu stallings MD PCP: Dr. Aleksandr Ramirez MD Status :ADM OSEAS Location: [place] [address] Providers Date of Admission: 05/11/23 Primary Care Physician: Dr. Aleksandr Ramirez MD Reason For Visit: CAD STATGE PROCEDURE Diagnosis Discharge Diagnosis (1) Stented coronary artery: Status: Acute Code(s): Z95.5 - Presence of coronary angioplasty implant and graft Plan: Patient had raged PCI of LAD/diagonal bifurcation. He had an uneventful hospital course. He is being discharged home in a stable condition. He will follow-up with his primary cover mat machine operator as an outpatient. (2) Ischemic cardiomyopathy: Status: Acute Code(s): I25.5 - Ischemic cardiomyopathy Medications at Discharge Home Medications omeprazole 20 mg capsule,delayed release 20 mg PO DAILY 03/21/21 aspirin 81 mg tablet,delayed release 81 mg PO DAILY@0800 #1 TAB 04/08/23 metformin 500 mg tablet 500 mg PO DAILY diabetes #1 TAB 04/08/23 atorvastatin 40 mg tablet 40 mg PO QHS cholesterol #90 tabs 05/02/23 carvedilol 6.25 mg tablet 6.25 mg PO BID #180 tabs 05/02/23 multivitamin (Daily Multi-Vitamin tablet) 1 tab PO DAILY 05/02/23 ticagrelor 90 mg tablet (Brilinta) 90 mg PO BID #60 tabs 05/02/23 valsartan 320 mg tablet 320 mg PO DAILY #90 tabs 05/02/23 Weight / BMI Weight Weight: 247 lb 12.793 oz Body Mass Index (BMI) 35.5 ABG / Lab / Microbiology Data 05/12/23 05:47 05/12/23 05:47 Laboratory: Laboratory Results - last 24 hr 05/12/23 05:47: WBC 6.1, RBC 4.64, Hgb 13.9, Hct 41.6, MCV 89.7, MCH 30.0, MCHC 33.4, RDW Std Deviation 41.7, RDW Coeff of Aiyana 12.9, Plt Count 154, MPV 9.4, Sodium 143, Potassium 4.0, Chloride 112 H, Carbon Dioxide 27.0, Anion Gap 4 L, BUN 21 H, Creatinine 1.07, Estim Creat Clear Calc 66.33, Est GFR (MDRD) Af Amer 88, Est GFR (MDRD) Non-Af 73, BUN/Creatinine Ratio 19.6, Glucose 135 H, Calcium 8.0 L, Total Bilirubin 0.80, AST 21, ALT 29, Alkaline Phosphatase 121 H, Total Protein 6.2 L, Albumin 3.1 L, Globulin 3.1, Albumin/Globulin Ratio 1.0 D/C Instructions Additional Instructions: Do not lift anything over 5 pounds with your right arm for 5 days. Follow-up with your primary cover mat machine operator Meaningful Use Info Meaningful Use Diagnoses (Choose all that apply): None applicable Discharge Plan Admission Admit Date/Time: 05/11/23 15:56 Primary Reason for Your Visit: CAD s/p PCI Attending Provider: Indu Messer Primary Care Provider: Aleksandr Ramirez Discharge Orders/Prescriptions Prescriptions: Continued multivitamin [Daily Multi-Vitamin] Tablet 1 tab PO DAILY atorvastatin 40 mg tablet 40 mg PO QHS Qty: 90 3RF carvedilol 6.25 mg tablet 6.25 mg PO BID Qty: 180 3RF Brilinta 90 mg tablet 90 mg PO BID Qty: 60 3RF valsartan 320 mg tablet 320 mg PO DAILY Qty: 90 3RF omeprazole 20 mg Capsule,Delayed Release(Dr/Ec) 20 mg PO DAILY aspirin 81 mg Tablet,Delayed Release (Dr/Ec) 81 mg PO DAILY@0800 Qty: 1 0RF Held metformin 500 MG tablet 500 mg PO DAILY Qty: 1 0RF Hold Instructions: Resume on 05/15/23. Rx Instructions: start on 04/09/23 Referrals / Follow Up: Aleksandr Ramirez MD [Primary Care Provider] - Indu Messer MD [Med Staff - Active Staff] - 06/12/23 10:00 am Disposition Disposition (needs filled in before D/C Order can be placed): Home, Self Care 05/12/23 3862 <Electronically signed by Indu Messer MD> Cosigner Signature (if applicable): CC: Dr. Aleksandr Ramirez MD; Dr. Indu Messer MD~ Signed [facility] Work Phone: Evaluation noteNo assessment information available [facility] Work Phone: Evaluation note* Diagnosis Non-recurrent acute suppurative otitis media of right ear without spontaneous rupture of tympanic membrane- Primary [facility] Diagnosis Controlled type 2 diabetes mellitus without complication, without long-term current use of insulin (HCC)- Primary Acute pancreatitis without infection or necrosis, unspecified pancreatitis type [facility]* Diagnosis Controlled type 2 diabetes mellitus without complication, without long-term current use of insulin (HCC)- Primary S/P left rotator cuff repair Primary hypertension Unspecified essential hypertension Persistent cough Cough Allergic rhinitis, unspecified seasonality, unspecified trigger Class 2 obesity without serious comorbidity with body mass index (BMI) of 35.0 to 35.9 in adult, unspecified obesity type RAMOS (nonalcoholic steatohepatitis) Other chronic nonalcoholic liver disease [facility]* Diagnosis Controlled type 2 diabetes mellitus without complication, without long-term current use of insulin (HCC) [facility] Diagnosis Controlled type 2 diabetes mellitus without complication, without long-term current use of insulin (HCC)- Primary Type 2 diabetes mellitus with diabetic neuropathy, without long-term current use of insulin (HCC) Primary hypertension Unspecified essential hypertension Elevated alkaline phosphatase level Other nonspecific abnormal serum enzyme levels RAMOS (nonalcoholic steatohepatitis) Other chronic nonalcoholic liver disease Class 2 obesity without serious comorbidity with body mass index (BMI) of 35.0 to 35.9 in adult, unspecified obesity type Bilateral lower extremity edema Edema Unsteady gait Abnormality of gait Need for COVID-19 vaccine History of tobacco use Personal history of tobacco use, presenting hazards to health [facility] Diagnosis Controlled type 2 diabetes mellitus without complication, without long-term current use of insulin (HCC) Type 2 diabetes mellitus with diabetic neuropathy, without long-term current use of insulin (HCC) [facility]* Diagnosis Encounter for abdominal aortic aneurysm (AAA) screening- [facility] Diagnosis Controlled type 2 diabetes mellitus without complication, without long-term current use of insulin (HCC) [facility]* Diagnosis Elevated alkaline phosphatase level- Primary Other nonspecific abnormal serum enzyme levels [facility]* Diagnosis History of tobacco use Personal history of tobacco use, presenting hazards to health [facility] Diagnosis Elevated alkaline phosphatase level Other nonspecific abnormal serum enzyme levels documented in this encounter [facility] note* Diagnosis Onset Date Resolution Status Non-STEMI (non-ST elevated myocardial infarction) acute STEMI (ST elevation myocardial infarction) acute [facility] Work Phone: Evaluation note* Diagnosis NSTEMI (non-ST elevated myocardial infarction) ([facility])- Primary Acute myocardial infarction, subendocardial infarction, episode of care unspecified Coronary artery disease involving mash[place] heart without angina pectoris, unspecified vessel or lesion type S/P arterial stent Other postprocedural status Chest pain, unspecified type Systolic congestive heart failure, unspecified HF chronicity (HCC) Essential hypertension Unspecified essential hypertension Controlled type 2 diabetes mellitus without complication, without long-term current use of insulin (HCC) Mild nonproliferative diabetic retinopathy of both eyes without macular edema associated with type 2 diabetes mellitus (HCC) Encounter for immunization Need for other specified prophylactic vaccination against single bacterial disease documented in this encounter [facility] note* Diagnosis Controlled type 2 diabetes mellitus without complication, without long-term current use of insulin (HCC)- Primary Neuroma Other benign neoplasm of connective and other soft tissue of unspecified site [facility]* Diagnosis Controlled type 2 diabetes mellitus without complication, without long-term current use of insulin (HCC)- Primary Coronary artery disease involving [place] heart without angina pectoris, unspecified vessel or lesion type Systolic congestive heart failure, unspecified HF chronicity (HCC) Primary hypertension Unspecified essential hypertension Hyperlipidemia, unspecified hyperlipidemia type Encounter for immunization Need for other specified prophylactic vaccination against single bacterial disease Elevated alkaline phosphatase level Other nonspecific abnormal serum enzyme levels Mild nonproliferative diabetic retinopathy of both eyes without macular edema associated with type 2 diabetes mellitus (HCC) [facility] Diagnosis Controlled type 2 diabetes mellitus without complication, without long-term current use of insulin (HCC) documented in this encounter [facility] note* Diagnosis Coronary artery disease involving mash[place] heart without angina pectoris, unspecified vessel or lesion type Controlled type 2 diabetes mellitus without complication, without long-term current use of insulin ([facility]) documented in this encounter [facility] note* Diagnosis Diabetic polyneuropathy associated with type 2 diabetes mellitus (HCC)- Primary Ingrowing toenail Ingrowing nail Diminished pulses in lower extremity Other symptoms involving cardiovascular system documented in this encounter [facility] note* Diagnosis Controlled type 2 diabetes mellitus without complication, without long-term current use of insulin (HCC)- Primary documented in this encounter [facility] note* Diagnosis Controlled type 2 diabetes mellitus without complication, without long-term current use of insulin (HCC)- Primary Coronary artery disease involving [place] heart without angina pectoris, unspecified vessel or lesion type Encounter for immunization Need for other specified prophylactic vaccination against single bacterial disease Mild nonproliferative diabetic retinopathy of both eyes without macular edema associated with type 2 diabetes mellitus (HCC) Primary hypertension Unspecified essential hypertension Hyperlipidemia, unspecified hyperlipidemia type Thrombocytopenia ([facility]) Thrombocytopenia, unspecified Obesity, Class II, BMI 35-39.9 Obesity, unspecified S/P arterial stent Other postprocedural status documented in this encounter [facility] note* Diagnosis Primary hypertension- Primary Unspecified essential hypertension Controlled type 2 diabetes mellitus without complication, without long-term current use of insulin ([facility]) Diabetic polyneuropathy associated with type 2 diabetes mellitus (HCC) Coronary artery disease involving [place] heart without angina pectoris, unspecified vessel or lesion type S/P angioplasty with stent Other postprocedural status Systolic congestive heart failure, unspecified HF chronicity ([facility]) Obesity, Class II, BMI 35-39.9 Obesity, unspecified RAMOS (nonalcoholic steatohepatitis) Other chronic nonalcoholic liver disease Gastroesophageal reflux disease, unspecified whether esophagitis present documented in this encounter [facility] note* Diagnosis Onset Date Resolution Status Admit Date Atherosclerotic heart disease of mash[place] coronary artery without angina pectoris acute December 11, 2024 7:50am Dyslipidemia chronic December 11 025 7:50am Hypertension chronic December 11 7:50am Ischemic cardiomyopathy chronic J eddie 2024 7:50am Stented coronary artery May 11, 2023 [facility] December 11, 2024 7:50am [facility] Work Phone: Evaluation note* Diagnosis Controlled type 2 diabetes mellitus without complication, without long-term current use of insulin (HCC) documented in this encounter [facility] for referral (narrative)* Diagnostic Procedure Only (Routine) - Closed Specialty Diagnoses / Procedures Referred By Contac t Referred To Contact US IMAGING Diagnoses Elevated alkaline phosphatase level Procedures US ABD RT UPPER QUADRANT US ABDOMINAL REAL TIME W/IMAGE LIMITED Son Ramirez MD [address] [place] [address] Us Imaging Referral ID Status Reason Start Date Expiration Date V isits Requested Visits Authorized [id number] Closed Auto-Generate d Referral 04/20/2022 05/20/2023 1 1 [facility] for referral (narrative)* Diagnostic Procedure Only (Routine) - Closed Specialty Diagnoses / Procedures Referred By Contac t Referred To Contact US IMAGING Diagnoses History of tobacco use Procedures US SCREENING FOR AAA (2017) US ABDOMINAL AORTA REAL TIME SCREEN STUDY AAA Son Ramirez MD [address] [place] [address] [place] [address] Referral ID Status Reason Start Date Expiration Date V isits Requested Visits Authorized [id number] Closed Auto-Generate d Referral 04/18/2022 05/18/2023 1 1 [facility] for referral (narrative)* Diagnostic Procedure Only (Routine) - Closed Specialty Diagnoses / Procedures Referred By Contac t Referred To Contact US IMAGING Diagnoses Elevated alkaline phosphatase level Procedures US ABD RT UPPER QUADRANT US ABDOMINAL REAL TIME W/IMAGE LIMITED Son Ramirez MD [address] [place] [address] [place] [address] Referral ID Status Reason Start Date Expiration Date V isits Requested Visits Authorized [id number] Closed Auto-Generate d Referral 04/20/2022 05/20/2023 1 1 [facility] for referral (narrative)* Outpatient Procedure (Routine) - Authorized Specialty Diagnoses / Procedures Referred By Contac t Referred To Contact [facility] Diagnoses Diminished pulses in lower extremity Procedures PVR ANK PRESS NANCY [facility] NON-INVAS PHYSIOLOGIC STD EXTREMITY ART 2 LEVEL Alissa Gutierrez [address] [address] [facility] [address] [place] [address] Referral ID Status Reason Start Date Expiration Date Visits Requested Visits Authorized [id number] Authorized Auto-Generat ed Referral 04/29/2024 04/29/2025 1 1 [facility] for referral (narrative)No reason for referral information availableMinotola [facility] Work Phone: Reason for visit Narrative* Diagnostic Procedure Only (Routine) - Closed Specialty Diagnoses / Procedures Referred By Contac t Referred To Contact US IMAGING Diagnoses History of tobacco use Procedures US SCREENING FOR AAA (2017) US ABDOMINAL AORTA REAL TIME SCREEN STUDY AAA Son Ramirez MD [address] [place] [address] Us [facility] [place] [address] Referral ID Status Reason Start Date Expiration Date V isits Requested Visits Authorized [id number] Closed Auto-Generate d Referral 04/18/2022 05/18/2023 1 1 [facility] for visit Narrative* Diagnostic Procedure Only (Routine) - Closed Specialty Diagnoses / Procedures Referred By Contac t Referred To Contact US IMAGING Diagnoses Elevated alkaline phosphatase level Procedures US ABD RT UPPER QUADRANT US ABDOMINAL REAL TIME W/IMAGE LIMITED Son Ramirez MD [address] [place] [address] Us Imaging [facility] Referral ID Status Reason Start Date Expiration Date V isits Requested Visits Authorized [id number] Closed Auto-Generate d Referral 04/20/2022 05/20/2023 1 1 [facility] Summary Purpose Family History No Family History Records Found Relationship Condition Age at Onset Recorded Date/T rachelle father Diabetes mellitus Unknown mother Hypertension Unknown Advance Directives No Advanced Directives Records Found Advance Directive Response Recorded Date/ Time Living Will Yes March 21 10:41am Power of Wet Pour Supervisor Yes March 21, 2021 10:41am Documents on File Type Date Recorded Patient Chief Writer Expl anation Advance Directive(s) 03/29/2021 7:16 AM Advance Directive(s) 03/04/2021 5:14 PM Advance Directive Response Recorded Date/ Time Name of Medical Power of Wet Pour Supervisor TATIANNA MENDOZA April 06, 2023 1:01pm Living Will No April 06 5:11pm Power of Wet Pour Supervisor No April 06, 2023 5:11pm Advance Directive Response Recorded Date/ Time Advance Directives on File Yes Decem 2022 7:38am Name of Medical Power of Wet Pour Supervisor Tatianna () May 11, 2023 4:00pm Name of Medical Power of Wet Pour Supervisor TATIANNA MENDOZA April 06, 2023 1:01pm Advance Directives on File No 2023 1:07pm Advance Directives Yes April 7:38am Living Will Yes May 31 1:27pm Power of Wet Pour Supervisor Yes May 31 024 1:27pm Advance Directive Response Recorded Date/ Time Advance Directives on File Yes Decem 2022 8:38am Name of Medical Power of Wet Pour Supervisor Tatianna () May 11, 2023 5:00pm Advance Directives on File No Mayua 2023 2:07pm Advance Directives Yes April 8:38am Living Will Yes May 31 2:27pm Power of Wet Pour Supervisor Yes May 31 024 2:27pm Advance Directive Response Recorded Date/ Time Advance Directives on File No Mayua ry 2023 2:07pm Advance Directives Yes April 8:38am Living Will Yes May 31 2:27pm Power of Wet Pour Supervisor Yes May 31 024 2:27pm Advance Directive Response Recorded Date/ Time Advance Directives on File Yes Decem 2022 7:38am Name of Medical Power of Wet Pour Supervisor Tatianna () May 11, 2023 4:00pm Advance Directives Yes April 7:38am Living Will Yes Gio 14th, 2 023 4:00pm Power of Wet Pour Supervisor Yes May 11, 2023 4:00pm Name of Medical Power of Wet Pour Supervisor TATIANNA MENDOZA April 06, 2023 1:01pm Advance Directive Response Recorded Date/ Time Advance Directives Yes April 8:38am Chief Complaint and Reason for Visit Chief Complaint SOFT TISSUE MASS LEF T SHOULDER LT SHOULDER JOINT / RX HERE Chief Complaint SPRAIN OF RIGHT SHOU LDER JOINT. RX HERE NSTEMI NSTEMI NSTEMI Reason for Visit Non-STEMI (non-ST el evated myocardial infarction) STEMI (ST elevation myocardial infarction) Chief Complaint SPRAIN OF RIGHT SHOU LDER JOINT. RX HERE NSTEMI NSTEMI AM EKG NSTEMI AM EKG NSTEMI S/P [facility] STEMI 04/07 / NEEDS STAGED PCI W NN Reason for Visit Hyperlipidemia Ischemic cardiomyopathy Stented coronary artery Chief Complaint NSTEMI NSTEMI AM EKG NSTEMI AM EKG NSTEMI S/P [facility] STEMI 04/07 / NEEDS STAGED PCI W NN CAD STATGE PROCEDURE CAD STATGE PROCEDURE PCI with stenting 4-6 W FU PCI with coronary stent Reason for Visit Hyperlipidemia Ischemic cardiomyopathy Stented coronary artery Ischemic cardiomyopathy Stented coronary artery Hyperlipidemia Ischemic cardiomyopathy Stented coronary artery Chief Complaint NSTEMI NSTEMI AM EKG NSTEMI AM EKG NSTEMI S/P 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 RX HERE NSTEMI NSTEMI AM EKG NSTEMI AM EKG NSTEMI S/P [facility] STEMI 04/07 / NEEDS STAGED PCI W NN CAD STATGE PROCEDURE CAD STATGE PROCEDURE Reason for Visit Hyperlipidemia Ischemic cardiomyopathy Stented coronary artery Ischemic cardiomyopathy Stented coronary artery Chief Complaint Admit Date 6 M FU December 11, 2024 7:50 am Reason for Visit Admit Date Atherosclerotic heart diseas e of [place] coronary artery without angina pectoris December 11, 2024 7:50am Dyslipidemia December 11, 2024 7:50 am Hypertension December 11, 2024 7:50 am Ischemic cardiomyopathy December 11, 2024 7:50am Stented coronary artery December 11, 2024 7:50am Reason for Referral Specialty Diagnoses / Procedures Referred By Contac t Referred To Contact Podiatry Diagnoses Controlled type 2 diabetes mellitus without complication, without long-term current use of insulin (HCC) Type 2 diabetes mellitus with diabetic neuropathy, without long-term current use of insulin (HCC) Procedures CONSULT TO PODIATRY OFFICE/OUTPATIENT [facility] MDM 60-74 MINUTES Son Ramirez MD [address] [place] [address] Referral ID Status Reason Start Date Expiration Date Visits Requested Visits Authorized [id number] Authorized PCP Requested Referral 2 04/18/2023 1 1 Specialty Diagnoses / Procedures Referred By Contac t Referred To Contact US IMAGING Diagnoses History of tobacco use Procedures US SCREENING FOR AAA (2017) US ABDOMINAL AORTA REAL TIME SCREEN STUDY AAA Son Ramirez MD [address] [place] [address] Us Imaging Referral ID Status Reason Start Date Expiration Date Visits Requested Visits Authorized [id number] Authorized Auto-Generat ed Referral 2 05/18/2023 1 1 Additional Source Comments (unrecognized sect ion and content) No Status Records FoundNo Status Records FoundNo Status Records FoundNo Status Records FoundNo Status Records Found INFORMATION SOURCE (unrecogn ized section and content) DATE CREATED AUTHOR 01/20/2021 [facility] DATE CREATED AUTHOR AUTHOR'S ORGANIZ ATION 04/23/2021 [facility] DATE CREATED AUTHOR AUTHOR'S ORGANIZ ATION 01/05/2023 [facility] DATE CREATED AUTHOR AUTHOR'S ORGANIZ ATION 11/18/2024 [facility] DATE CREATED AUTHOR AUTHOR'S ORGANIZ ATION 01/14/2025 [facility] Goals (unrecognized section and content) Goals may be documented in a n alternate sectionGoals may be documented in an alternate sectionGoals may be documented in an alternate section Source Comments (unrecognize d section and content) In the event this informatio n is protected by the Federal Confidentiality of Alcohol and Drug Abuse Patient Records regulations: The Federal rules restrict any use of the information to criminally investigate or prosecute any alcohol or drug abuse patient.[facility] the event this information is protected by the Federal Confidentiality of Alcohol and Drug Abuse Patient Records regulations: The Federal rules restrict any use of the information to criminally investigate or prosecute any alcohol or drug abuse patient.[facility] Hospital[facility] the event this information is protected by the Federal Confidentiality of Alcohol and Drug Abuse Patient Records regulations: The Federal rules restrict any use of the information to criminally investigate or prosecute any alcohol or drug abuse patient.[facility] Hospital[facility] the event this information is protected by the Federal Confidentiality of Alcohol and Drug Abuse Patient Records regulations: The Federal rules restrict any use of the information to criminally investigate or prosecute any alcohol or drug abuse patient.[facility] Hospital[facility] the event this information is protected by the Federal Confidentiality of Alcohol and Drug Abuse Patient Records regulations: The Federal rules restrict any use of the information to criminally investigate or prosecute any alcohol or drug abuse patient.[facility] Hospital[facility] the event this information is protected by the Federal Confidentiality of Alcohol and Drug Abuse Patient Records regulations: The Federal rules restrict any use of the information to criminally investigate or prosecute any alcohol or drug abuse patient.[facility] Hospital[facility] the event this information is protected by the Federal Confidentiality of Alcohol and Drug Abuse Patient Records regulations: The Federal rules restrict any use of the information to criminally investigate or prosecute any alcohol or drug abuse patient.[facility] HospitalIn the event this information is protected by the Federal Confidentiality of Alcohol and Drug Abuse Patient Records regulations: The Federal rules restrict any use of the information to criminally investigate or prosecute any alcohol or drug abuse patient.[facility] HospitalIn the event this information is protected by the Federal Confidentiality of Alcohol and Drug Abuse Patient Records regulations: The Federal rules restrict any use of the information to criminally investigate or prosecute any alcohol or drug abuse patient.[facility] HospitalIn the event this information is protected by the Federal Confidentiality of Alcohol and Drug Abuse Patient Records regulations: The Federal rules restrict any use of the information to criminally investigate or prosecute any alcohol or drug abuse patient.[facility] HospitalIn the event this information is protected by the Federal Confidentiality of Alcohol and Drug Abuse Patient Records regulations: The Federal rules restrict any use of the information to criminally investigate or prosecute any alcohol or drug abuse patient.[facility] Hospital[facility] the event this information is protected by the Federal Confidentiality of Alcohol and Drug Abuse Patient Records regulations: The Federal rules restrict any use of the information to criminally investigate or prosecute any alcohol or drug abuse patient.[facility] Hospital[facility] the event this information is protected by the Federal Confidentiality of Alcohol and Drug Abuse Patient Records regulations: The Federal rules restrict any use of the information to criminally investigate or prosecute any alcohol or drug abuse patient.[facility] HospitalIn the event this information is protected by the Federal Confidentiality of Alcohol and Drug Abuse Patient Records regulations: The Federal rules restrict any use of the information to criminally investigate or prosecute any alcohol or drug abuse patient.[facility] HospitalIn the event this information is protected by the Federal Confidentiality of Alcohol and Drug Abuse Patient Records regulations: The Federal rules restrict any use of the information to criminally investigate or prosecute any alcohol or drug abuse patient.[facility] HospitalIn the event this information is protected by the Federal Confidentiality of Alcohol and Drug Abuse Patient Records regulations: The Federal rules restrict any use of the information to criminally investigate or prosecute any alcohol or drug abuse patient.[facility] HospitalIn the event this information is protected by the Federal Confidentiality of Alcohol and Drug Abuse Patient Records regulations: The Federal rules restrict any use of the information to criminally investigate or prosecute any alcohol or drug abuse patient.[facility] HospitalIn the event this information is protected by the Federal Confidentiality of Alcohol and Drug Abuse Patient Records regulations: The Federal rules restrict any use of the information to criminally investigate or prosecute any alcohol or drug abuse patient.[facility] HospitalIn the event this information is protected by the Federal Confidentiality of Alcohol and Drug Abuse Patient Records regulations: The Federal rules restrict any use of the information to criminally investigate or prosecute any alcohol or drug abuse patient.[facility] HospitalIn the event this information is protected by the Federal Confidentiality of Alcohol and Drug Abuse Patient Records regulations: The Federal rules restrict any use of the information to criminally investigate or prosecute any alcohol or drug abuse patient.[facility] HospitalIn the event this information is protected by the Federal Confidentiality of Alcohol and Drug Abuse Patient Records regulations: The Federal rules restrict any use of the information to criminally investigate or prosecute any alcohol or drug abuse patient.[facility] HospitalIn the event this information is protected by the Federal Confidentiality of Alcohol and Drug Abuse Patient Records regulations: The Federal rules restrict any use of the information to criminally investigate or prosecute any alcohol or drug abuse patient.[facility] HospitalIn the event this information is protected by the Federal Confidentiality of Alcohol and Drug Abuse Patient Records regulations: The Federal rules restrict any use of the information to criminally investigate or prosecute any alcohol or drug abuse patient.[facility] HospitalIn the event this information is protected by the Federal Confidentiality of Alcohol and Drug Abuse Patient Records regulations: The Federal rules restrict any use of the information to criminally investigate or prosecute any alcohol or drug abuse patient.[facility] HospitalIn the event this information is protected by the Federal Confidentiality of Alcohol and Drug Abuse Patient Records regulations: The Federal rules restrict any use of the information to criminally investigate or prosecute any alcohol or drug abuse patient.[facility] HospitalIn the event this information is protected by the Federal Confidentiality of Alcohol and Drug Abuse Patient Records regulations: The Federal rules restrict any use of the information to criminally investigate or prosecute any alcohol or drug abuse patient.[facility] Reason for Visit (unrecogniz ed section and content) Reason Comments Shortness of Breath X2wks, denied chest pain Sore Throat pain rated 5 x2 wks Reason Comments Lab Orders Reason Comments Follow Up 6 month Refill Request Reason Onset Date Comments Refill Request 11/11/2021 Reason Comments Follow Up 6 month- reporting o jamie last couple weeks when he gets up out of bed will experience brief dizziness/vertigo-patient thinks me be not enough fluids. Reason Comments New Diabetic Foot Care Specialty Diagnoses / Procedures Referred By Clinton t Referred To Contact Podiatry Diagnoses Controlled type 2 diabetes mellitus without complication, without long-term current use of insulin (HCC) Type 2 diabetes mellitus with diabetic neuropathy, without long-term current use of insulin (HCC) Procedures CONSULT TO PODIATRY OFFICE/OUTPATIENT NEW HIGH MDM 60-74 MINUTES Son Ramirez MD [address] [place] [address] Referral ID Status Reason Start Date Expiration Date V isits Requested Visits Authorized [id number] Closed PCP Requested Referral 04/18/2022 04/18/2023 1 1 Reason Comments Results Reason Onset Date Comments Refill Request 05/16/2022 Reason Comments Results Reason Comments Radiology US Specialty Diagnoses / Procedures Referred By [place] Referred To Contact US IMAGING Diagnoses Elevated alkaline phosphatase level Procedures US ABD RT UPPER QUADRANT US ABDOMINAL REAL TIME W/IMAGE LIMITED Son Ramirez MD [address] [place] [address] [place] [address] Referral ID Status Reason Start Date Expiration Date V isits Requested Visits Authorized [id number] Closed Auto-Generate d Referral 04/20/2022 05/20/2023 1 1 Specialty Diagnoses / Procedures Referred By [place] Referred To Contact US IMAGING Diagnoses History of tobacco use Procedures US SCREENING FOR AAA (2017) US ABDOMINAL AORTA REAL TIME SCREEN STUDY AAA Son Ramirez MD [address] [place] [address] [place] [address] Referral ID Status Reason Start Date Expiration Date V isits Requested Visits Authorized [id number] Closed Auto-Generate d Referral 04/18/2022 05/18/2023 1 1 Reason Comments Transition Of Care Reason Comments Established Patient Follow Up Diabetic Foot Check Reason Comments Patient Question Reason Comments Follow Up 6 month- prescribed farxiga and patient opting not to take d/t side effects Reason Onset Date Comments Refill Request 01/10/2024 Reason Onset Date Comments Refill Request 03/16/2024 Reason Comments Established Patient Follow Up Diabetic Foot Check Reason Comments F/U 6 Month Reason Comments 6 Month Exam Reason Onset Date Comments Refill Request 01/09/2025 Care Teams (unrecognized sec tion and content) Formulator Compounder Relationship Specialty Start Date End Date Son Ramirez MD [address] [facility] [place] [address] PCP - General Family Practice 04/19/17 Formulator Compounder Relationship Specialty Start Date End Date Son Ramirez MD [address] [facility] [place] [address] PCP - General Family Practice 04/19/17 Formulator Compounder Relationship Specialty Start Date End Date Son Ramirez MD [address] [facility] [place] [address] PCP - General Family Practice 04/19/17 Formulator Compounder Relationship Specialty Start Date End Date Son Ramirez MD [address] [facility] [place] [address] PCP - General Family Medicine 04/19/17 Formulator Compounder Relationship Specialty Start Date End Date Son Ramirez MD [address] [facility] [place] [address] PCP - General Family Medicine 04/19/17 Formulator Compounder Relationship Specialty Start Date End Date Son aRmirez MD [address] [facility] [place] [address] PCP - General Family Medicine 04/19/17 Formulator Compounder Relationship Specialty Start Date End Date Son Ramirez MD [address] [facility] [place] [address] PCP - General Family Medicine 04/19/17 Formulator Compounder Relationship Specialty Start Date End Date Son Ramirez MD [address] [facility] [place] [address] PCP - General Family Medicine 04/19/17 Formulator Compounder Relationship Specialty Start Date End Date Son Ramirez MD [address] [place] [address] PCP - General Family Medicine 04/19/17 Formulator Compounder Relationship Specialty Start Date End Date Son Ramirez MD [address] [place] [address] PCP - General Family Medicine 04/19/17 Team Status: Active Member Role Status Dates Dr. Aleksandr Ramirez MD Family Provider Active Dr. Aleksandr Ramirez MD Primary Care Provider Acti ve Team Status: Active Member Role Status Dates Dr. Aleksandr Ramirez MD Primary Care Provider Acti ve Nirmal Walter MD Emergency Provider Active Dr. Jf Dow MD Admit Provider, Other Pro vider Active Dr. Indu Messer MD Attending Provider, Othe r Provider Active Team Status: Active Member Role Status Dates Dr. Aleksandr Ramirez MD Primary Care Provider Acti ve Nirmal Walter MD Emergency Provider Active Dr. Jf Dow MD Admit Provider, Other Pro vider Active Dr. Indu Messer MD Other Provider Active Dr. Doin Sabillon DO Attending Provider, Other Pro vider Active Team Status: Active Member Role Status Dates Dr. Aleksandr Raimrez MD Primary Care Provider Acti ve Dr. Indu Messer MD Attending Provider Activ e Team Status: Inactive Member Role Status Dates Dr. Aleksandr Ramirez MD Primary Care Provider Acti ve Dr. Isaiah Mccarty MD Attending Provider, Referring P rogerardder Active Team Status: Inactive Member Role Status Dates Dr. Aleksandr Ramirez MD Primary Care Provider Acti ve Nirmal Walter MD Emergency Provider Active Dr. Jf Dow MD Admit Provider, Other Pro vider Active Dr. Indu Messer MD Other Provider Active Dr. Dion Sabillon DO Attending Provider Active Formulator Compounder Relationship Specialty Start Date End Date Son Ramirez MD [address] [place] [address] PCP - General Family Medicine 04/19/17 Formulator Compounder Relationship Specialty Start Date End Date Son Ramirez MD [address] [place] [address] PCP - General Family Medicine 04/19/17 Formulator Compounder Relationship Specialty Start Date End Date Son Ramirez MD [address] [place] [address] PCP - General Family Medicine 04/19/17 Team Status: Inactive Member Role Status Dates Dr. Aleksandr Ramirez MD Primary Care Provider, Ref erring Provider Active Albin Leon INFORMATION SYSTEMS SECURITY DEVELOPER, INFORMATION SYSTEMS SECURITY DEVELOPER-C Attending Provider Active Team Status: Active Member Role Status Dates Dr. Aleksandr Ramirez MD Primary Care Provider Acti ve Dr. Indu Messer MD Attending Provider, Refe rring Provider Active Team Status: Active Member Role Status Dates Dr. Aleksandr Ramirez MD Primary Care Provider Acti ve Dr. Luis Sylvester MD Attending Provider, Referring Pro vider Active Team Status: Inactive Member Role Status Dates Dr. Aleksandr Ramirez MD Primary Care Provider Acti ve Albin Leon INFORMATION SYSTEMS SECURITY DEVELOPER, INFORMATION SYSTEMS SECURITY DEVELOPER-C Attending Provider, Referring Pro vider Active Team Status: Active Member Role Status Dates Dr. Aleksandr Ramirez MD Primary Care Provider Acti ve Dr. Indu Messer MD Admit Prov ider, Attending Provider, Referring Provider, Other Provider Active Team Status: Inactive Member Role Status Dates Dr. Aleksandr Ramirez MD Primary Care Provider Acti ve Dr. Indu Messer MD Admit Prov ider, Attending Provider, Referring Provider Active Team Status: Inactive Member Role Status Dates Dr. Aleksandr Ramirez MD Primary Care Provider Acti ve Dr. Indu Messer MD Attending Provider, Refe rring Provider Active Team Status: Active Member Role Status Dates Dr. Aleksandr Ramirez MD Primary Care Provider Acti ve Dr. Tino Garcia MD Attending Provider Active Formulator Compounder Relationship Specialty Start Date End Date Son Ramirez MD [address] [facility] [place] [address] PCP - General Family Medicine 04/19/17 Formulator Compounder Relationship Specialty Start Date End Date Son Ramirez MD [address] [facility] [place] [address] PCP - General Family Medicine 04/19/17 Formulator Compounder Relationship Specialty Start Date End Date Son Ramirez MD [address] [facility] [place] [address] PCP - General Family Medicine 04/19/17 Formulator Compounder Relationship Specialty Start Date End Date Son Ramirez MD [address] [facility] [place] [address] PCP - General Family Medicine 04/19/17 Formulator Compounder Relationship Specialty Start Date End Date Son Ramirez MD [address] [facility] [place] [address] PCP - General Family Medicine 04/19/17 Formulator Compounder Relationship Specialty Start Date End Date Son Ramirez MD [address] [facility] [place] [address] PCP - General Family Medicine 04/19/17 Umu Marquez APRN.CNP [address] [facility] [place] [address] Securities Counselor Family Medicine 05/04/24 Formulator Compounder Relationship Specialty Start Date End Date Son Ramirez MD [address] [facility] [place] [address] PCP - General Family Medicine 04/19/17 PodlogarUmu EXIT BOOTH AGENT.JUNIOR DATABASE ADMINISTRATOR [address] [place], [place] [address] [facility] 05/04/24 Formulator Compounder Relationship Specialty Start Date End Date Son Ramirez MD [address] [place], [place] [address] PCP - General Family Medicine 04/19/17 Podlogar[employer] EXIT BOOTH AGENT.JUNIOR DATABASE ADMINISTRATOR [address] [place], [place] [id number] [facility] 05/04/24 Jenn Maddox APRN.JUNIOR DATABASE ADMINISTRATOR [address] [place], [place] [id number] [facility] 11/07/24 Team Status: Active Member Role/Relationship Status Dates Dr. Aleksandr Ramirez MD Family Provider Active Dr. Aleksandr Ramirez MD Primary Care Provider Acti ve Team Status: Inactive Member Role/Relationship Status Dates Dr. Aleksandr Ramirez MD Primary Care Provider Acti ve Start: December 11, 2024 End: December 11, 2024 Dr. Aleksandr Ramirez MD Referring Provider Active Start: December 11, 2024 End: December 11, 2024 MOON Almazan Attending Provider Active St art: December 11, 2024 End: December 11, 2024 Formulator Compounder Relationship Specialty Start Date End Date Son Ramirez MD [address] [place], [place] [id number] PCP - General Family Medicine 04/19/17 Podlogar, Umu, EXIT BOOTH AGENT.JUNIOR DATABASE ADMINISTRATOR [address] [place], [place] [id number] [facility] 05/04/24 Jenn Maddox APRN.JUNIOR DATABASE ADMINISTRATOR [address] [place], [place] [id number] [facility] 11/07/24 Formulator Compounder Relationship Specialty Start Date End Date Son Ramirez MD [address] [place], [place] [id number] PCP - General Family Medicine 04/19/17 PodlogarUmu APRN.JUNIOR DATABASE ADMINISTRATOR [address] [place], [place] [id number] [facility] 05/04/24 Jenn Maddox APRN.JUNIOR DATABASE ADMINISTRATOR [address] [place], [place] [id number] [facility] 11/07/24 FOR RECORDS PERTAINING TO PATIENTS WHO ARE OR HAVE BEEN ENROLLED IN A CHEMICAL DEPENDENCY/SUBSTANCEABUSE PROGRAM, SOME INFORMATION MAY BE OMITTED. This clinical summary was aggregated from multiple sources. Caution should be exercised in using it in the provision of clinical care. This summary normalizes information from multiple sources, and as a consequence, information in this document may materially change the coding, format and clinical context of patient data. In addition, data may be omitted in some cases. CLINICAL DECISIONS SHOULD BE BASED ON THE PRIMARY CLINICAL RECORDS. [employer] provides no warranty or guarantee of the accuracy or completeness of information in this document.
[2025-01-14 22:55] LABS: Anion Gap 13 (5-15); BUN 21 mg/dL (4-19); BUN/Creat Ratio 14.6 RATIO (10-20); Calcium,Total 8.7 mg/dL (7.6-11.0); Carbon Dioxide 20.8 mmol/L (21.0-32.0); Chloride 108 mmol/L (98-108); Estimated Creatinine Clearance 59.83 ml/min (50-250); Glucose 162 mg/dL (70-99); Potassium 4.5 mmol/L (3.3-5.1)
[2025-01-14 23:10] VITALS: BP 167/89; PULSE 80; O2SAT 96
[2025-01-15 00:28] VITALS: BP 143/75; PULSE 82; RESP 22; TEMP 36.6; O2SAT 95
[2025-01-15 00:37] LABS: Color, Urine Yellow (Yellow); Glucose, Dipstick Normal (Normal); Ketone-Dipstick Negative (Negative); Leukocyte Esterase-Dipstick Negative /ul (Negative); Nitrite-Dipstick Negative (Negative); Occult Blood-Urine 250 /ul (Negative); Protein-Dipstick 30 mg/dl (Negative); Specific Gravity, Urine 1.025 (1.002-1.030); Urine Bilirubin Dipstick Negative (Negative)
[2025-01-15 01:02] LABS: Red Blood Cells-Urine 50-100 SEEN /hpf (0-5); Squamous Epithelial Cells - UA 0-5 SEEN /hpf (0-5)
[2025-01-15 01:03] LABS: Mucous, Urine 1+ /hpf (<or=2+)
== END 2025-01-15 00:29 | disposition home or self-care (01) ==
PROVIDERS: Emergency Provider Emergency Medicine; PCP Family Medicine; Visit Provider Emergency Medicine
DX: N13.2 Hydronephrosis with renal and ureteral calculous obstruction (principal); E11.9 Type 2 diabetes mellitus without complications; I25.5 Ischemic cardiomyopathy; E78.5 Hyperlipidemia, unspecified; I10 Essential (primary) hypertension; I25.10 Atherosclerotic heart disease of native coronary artery without angina pectoris; I25.2 Old myocardial infarction; Z79.84 Long term (current) use of oral hypoglycemic drugs; Z79.02 Long term (current) use of antithrombotics/antiplatelets; Z79.899 Other long term (current) drug therapy; Z87.891 Personal history of nicotine dependence
CPT/HCPCS: 74176; 80048; 81001; 85025; 96361; 96374; 96375; 99283; A4216; J2405

== ENCOUNTER → 2025-01-22 | Outpatient (CLI) | payer MEDICARE, BC, SELFPAY ==
[2023-07-28 09:24] VITALS: BMI 34.1
== END | disposition home or self-care (01) ==
LOC: SL 19:34
PROVIDERS: PCP Family Medicine; Referring Provider Student in an Organized Health Care Education/Training Program; Visit Provider Student in an Organized Health Care Education/Training Program
DX: G47.33 Obstructive sleep apnea (adult) (pediatric) (principal)
CPT/HCPCS: 95810

== ENCOUNTER → 2025-02-24 | Outpatient (CLI) | payer MEDICARE, BC, SELFPAY ==
[2023-07-28 09:24] VITALS: BMI 34.1
--- OUTSIDE RECORDS SUMMARY | 2024-11-13 07:02 | XMS RPT_ITS ---
Author Name Auto Generated Organization OH[facility] Care Team Providers Care Contracting Engineer Name Role Phone MADDIELOGAR, HEATHER Referring Unavailable SON RAMIREZ Primary Care Unavailab le SON RAMIREZ Attending Unavailab SON Jimenez Primary Care Unavailab le TESTALISSA SALAS Attending Unavailable TESTALISSA SALAS Referring Unavailable SON RAMIREZ Primary Care Unavailab le PODLOGAR, HEATHER Referring Unavailable SON RAMIREZ Primary Care Unavailab le PODLOGAR, HEATHER Attending Unavailable SON RAMIREZ Primary Care Unavailab le TESTRAKEALISSA Referring Unavailable SON RAMIREZ Primary Care Unavailab le PROBLEMS DATE TYPE CONDITION / CODE ATTENDING STATUS [facility] 11/13/2024 Active Gastroesophageal reflux disease, unspecified whether esophagitis present / K21.9(ICD-10) SON RAMIREZ Active [facility] 11/13/2024 Active S/P angioplasty with stent / Z95.820(ICD-10) SON RAMIREZ Active [facility] 04/17/2023 Active 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, unspecified vessel or lesion type / I25.10(ICD-10) SON RAMIREZ Active [facility] 04/17/2023 Active Systolic congest thompson heart failure, unspecified HF chronicity (HCC) / I50.20(ICD-10) SON RAMIREZ Active [facility] 10/17/2022 Active Obesity, Class I I, BMI 35-39.9 / E66.812(ICD-10) SON RAMIREZ Active [facility] 08/27/2014 Active RAMOS (nonalcohol ic steatohepatitis) / K75.81(ICD-10) SON RAMIREZ Active [facility] 11/13/2024 Active Diabetic polyneu ropathy associated with type 2 diabetes mellitus (HCC) / E11.42(ICD-10) SON RAMIREZ Active [facility] 05/20/2020 Active Mild nonprolifer ative diabetic retinopathy of both eyes without macular edema associated with type 2 diabetes mellitus (HCC) / E11.3293(ICD-10) NA Active [facility] 06/28/2017 Active Controlled type 2 diabetes mellitus without complication, without long-term current use of insulin (HCC) / E11.9(ICD-10) NA Active [facility] 08/13/2014 Active Primary hyperten christopher / I10(ICD-10) KATHERINE Active [facility] 11/12/2024 Active Hyperlipidemia, unspecified hyperlipidemia type / E78.5(ICD-10) KATHERINE Active [facility] 11/12/2024 Active Thrombocytopenia / D69.6(ICD-10) KATHERINE Active [facility] 06/05/2024 Active Diminished pulse s in lower extremity / R09.89(ICD-10) KATHERINE Active [facility] 05/15/2024 Active Encounter for immunization / Z23(ICD-10) PODLOGARHEATHER Active [facility] 05/15/2024 Active Thrombocytopenia (HCC) / D69.6(ICD-10) PODLOGARHEATHER Active [facility] 05/15/2024 Active S/P arterial jose nt / Z95.9(ICD-10) PODLOGARHEATHER Active [facility] PROCEDURES No Procedure Records Found RESULTS PROGRESS Observed: 02/06/2025 10:22 AM Status: COMPLETED Source: [facility] HNO ID: [id number] Author: GUERLINE EDWARDS MA Service: ? Author Type: Wilderness Guide Type: Progress Notes Filed: 02/06/2025 10:24 Note Text: POPULATION HEALTH NAVIGATION OUTREACH Action/ FLIPPED APPOINTMENT. UPDATED APPOINYMENT Topic Due (Y or N) Comments Medicare Wellness Y PCP Follow up Colorectal Cancer Screening Controlling Blood Pressure A1C HCC Flu Vaccine Care Everywhere Reviewed MyChart Activation Updated Appointment Note Reason for Outreach Care Gap/HCC or Scheduling Wellness Visits Care Gaps due: Medicare Annual Wellness Visit Patient Contacted: Unable or unnecessary to reach patient: Flipped existing appointment Patient already scheduled Updated appointment notes Navigation Signature: Guerline Edwards MA February 06, 2025 10:22 AM ASA Observed: 02/06/2025 12:00 AM Status: COMPLETED Source: [facility] Patient Outreach (NETNA[facility]) ALISSA PICHARDO ([id number]) 1950 M Date Time Provider Department 02/06/25 GUERLINE EDWARDS During your visit today, we recorded the following information about you: Guerline Edwards MA 02/06/2025 10:24 AM Signed POPULATION HEALTH NAVIGATION OUTREACH Action/FYI FLIPPED APPOINTMENT. UPDATED APPOINYMENT Topic Due (Y or N) Comments Medicare Wellness Y PCP Follow up Colorectal Cancer Screening Controlling Blood Pressure A1C HCC Flu Vaccine Care Everywhere Reviewed MyChart Activation Updated Appointment Note Reason for Outreach Care Gap/HCC or Scheduling Wellness Visits Care Gaps due: Medicare Annual Wellness Visit Patient Contacted: Unable or unnecessary to reach patient: Flipped existing appointment Patient already scheduled Updated appointment notes Navigation Signature: Guerline Edwards MA February 06, 2025 10:22 AM Allergies As of Date: 02/06/2025 Noted Allergy Reaction FARXIGA (DAPAGLIFLOZIN) 11/14/2023 2 - Rash CHLORHEXIDINE 04/06/2023 4 - Hives Date Reviewed: 11/13/2024 Reviewed by: Sylvia Morales MA - Fully Assessed Reason for Visit: Population Health Navigation Outreach [3910] Cmt: BENJIE SHELL PCSA Prescriptions as of 02/06/2025 - metFORMIN (GLUCOPHAGE) 500 mg tablet Take 1 tablet by mouth daily with breakfast. - omeprazole (PRILOSEC) 20 mg capsule Take 1 capsule by mouth once daily. - carvedilol (COREG) 25 mg tablet Take 1 tablet by mouth two times a day with meals. - atorvastatin (LIPITOR) 80 mg tablet Take 1 tablet by mouth daily at bedtime. For cholesterol. - valsartan (DIOVAN) 320 mg tablet Take 1 tablet by mouth once daily. - clopidogrel (PLAVIX) 75 mg tablet TAKE 4 TABLETS FIRST DAY AND THEN 1 TABLET DAILY - nitroglycerin sublingual (NITROSTAT) 0.4 mg SL tablet Dissolve 1 tablet under the tongue every 5 minutes as needed for chest pain. - Multivitamin capsule Take 1 capsule by mouth once daily. Problem List As Of Date 02/06/2025 Noted Resolved Cholelithiasis [K80.20] 07/31/2014 Abdominal pain, unspecified site [R10.9] 07/31/2014 Obesity [E66.9] 08/13/2014 HTN (hypertension) [I10] 08/13/2014 RAMOS (nonalcoholic steatohepatitis) [K75.81] 08/27/2014 Diabetes mellitus type II, controlled (HCC) [E1* Mild nonproliferative diabetic retinopathy of b*04/2020 Thrombocytopenia (HCC) [D69.6] 10/23/2020 10/17/2022 Colitis [K52.9] 03/29/2021 03/29/2021 Obesity, Class II, BMI 35-39.9 [E66.812] 10/17/2022 Systolic congestive heart failure (HCC) [I50.20]04/17/2023 NSTEMI (non-ST elevated myocardial infarction) *04/17/2023 CAD (coronary artery disease) [I25.10] 04/17/2023 Carpal tunnel syndrome on right [G56.01] S/P angioplasty with stent [Z95.820] 03/2023 GERD (gastroesophageal reflux disease) [K21.9] Encounter Status:Closed by GUERLINE EDWARDS on 02/06/25 PROGRESS Observed: 11/13/2024 7:35 AM Status: COMPLETED Source: [facility] Author: SON RAMIREZ MD Service: ? Author Type: Physician Type: Progress Notes Filed: 11/13/2024 07:52 Note Text: Chief Complaint Patient presents with: 6 Month Exam Recording using ambient [employer] software for draft documentation of the visit was discussed with the patient/authorized employer relations representative; all questions welcomed and answered. Patient/authorized employer relations representative agreed to proceed HPI Alissa Pichardo is a 74 year old male who presents here today for Above Complaints. Patient has been in good health without recent hospitalizations, ER visits, or falls. No concerns today. Diabetes Mellitus: - A1c remains stable at 6.4%. - Patricia adheres to diabetic diet most of the time. - Consistently takes metformin daily. - Rarely checks blood glucose levels at home, approximately once a month. - No new or worsening symptoms; recent eye exam showed no retinopathy. - Monitors feet daily; internal corrosion specialist recommended iodine for moisture between toes. Coronary Artery Disease: - Last cardiology visit at [facility] in May; next appointment scheduled for November. - No new angina, dyspnea, palpitations, or edema. - Avoids salt and cholesterol in diet. - Takes Plavix, Coreg, Lipitor, and nitroglycerin as prescribed. - Recent LDL cholesterol level was 79 mg/dL; previous level was 53 mg/dL. Congestive Heart Failure: - No new symptoms of cough, wheezing, or dyspnea. - Takes valsartan as prescribed. GERD: -Controlled with Prilosec Dietary Protein Deficiency: - Recent lab work showed a slight decrease in Patricia's protein levels from 6.3 to 6.0 g/dL. Shoulder Pain: - Mild shoulder soreness attributed to lifting activities. Past medical history, appointments, medications, allergies reviewed. 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 type 2 diabetes mellitus (HCC) 04/2020 Obesity S/P angioplasty with stent 03/2023 YUKI to obtuse marginal branch Thrombocytopenia Previous Surgical History PAST SURGICAL HISTORY Procedure Laterality Date CARPAL TUNNEL right COLONOSCOPY 2004, 2015 COLONOSCOPY FLX DX W/COLLJ SPEC WHEN PFRMD 03/29/2021 -normal biopsies, per DP repeat in 10 years LAPAROSCOPY REPAIR INCISIONAL HERNIA REDUCIBLE 06/19/2017 Hernia repair, umbilical/incisional [facility] - laparoscopic - [address] mesh LAPS SURG CHOLECYSTECTOMY W/CHOLANGIOGRAPHY 08/19/2014 attempted, failed IOC, fatty liver PAST SURGICAL HISTORY OF 04/30/2021 left shoulder arthroscopy, subacromial decompression, biceps tenotomy, arthroscopic rotator cuff repair, and lipoma excision Family History FAMILY HISTORY Problem Relation Age of Onset No Known Problems Mother Diabetes Father Patient Allergies ALLERGIES Allergen Reactions Farxiga [Dapagliflo* Rash Chlorhexidine Hives Current Medications Current Outpatient Medications on File Prior to Visit Medication Sig omeprazole (PRILOSEC) 20 mg capsule Take 1 capsule by mouth once daily. carvedilol (COREG) 25 mg tablet Take 1 tablet by mouth two times a day with meals. valsartan (DIOVAN) 320 mg tablet Take 1 tablet by mouth once daily. clopidogrel (PLAVIX) 75 mg tablet TAKE 4 TABLETS FIRST DAY AND THEN 1 TABLET DAILY atorvastatin (LIPITOR) 40 mg tablet Take 1 tablet by mouth daily at bedtime. For cholesterol. metFORMIN (GLUCOPHAGE) 500 mg tablet Take 1 tablet by mouth daily with breakfast. nitroglycerin sublingual (NITROSTAT) 0.4 mg SL tablet Dissolve 1 tablet under the tongue every 5 minutes as needed for chest pain. Multivitamin capsule Take 1 capsule by mouth once daily. No current facility-administered medications on file prior to visit. Social History Social History Tobacco Use Smoking status: Former Current packs/day: 0.00 Average packs/day: 0.5 packs/day for 20.0 years (10.0 ttl pk-yrs) Types: Cigarettes Start date: 07/31/1974 Quit date: 07/31/1994 Years since quittin.3 Smokeless tobacco: Former Vaping Use Vaping status: Never Used Substance Use Topics Alcohol use: Yes Alcohol/week: 1.0 standard drink of alcohol Types: 1 Cans of Beer (12oz) per week Comment: beer on weekend. Drug use: No Review of Symptoms REVIEW OF SYSTEMS GENERAL: No weight loss, malaise or fevers RESPIRATORY: Negative for cough, hemoptysis, wheezing, COPD, dyspnea or shortness of breath CARDIOVASCULAR: Negative for chest pain, leg swelling, hypertension, CHF or palpitations GI: No nausea, vomiting, or diarrhea SKIN: Negative for lesions, rash, and itching EXAM: BP 130/62 Pulse 72 Ht 175.3 cm (5' 9) Wt 114.4 kg (252 lb 3.2 oz) SpO2 95% BMI 37.24 kg/m? General Appearance: Well appearing, alert, in no acute distress, well-hydrated, well nourished.. Skin: Skin color, texture, turgor normal, no suspicious rashes or lesions. Lungs: Lungs clear to auscultation. No wheezing, rhonchi, rales.. Heart: RRR without murmur, gallop, or rubs. No ectopy. Abdomen: Normal abdominal exam, Abdomen soft, non-tender. Bowel sounds normal. No masses, organomegaly. Extremities: Edema: trace edema above socks bilaterally. . Health Maintenance List Depression Screening Never done Anxiety Screening Never done Medicare Annual Wellness Visit Never done Advance Directive Discussion Never done DTaP,Tdap,Td Vaccine(1 - Tdap) due on 11/13/2025 RSV Vaccine(1 - Risk 60-74 years 1-dose series) due on 11/13/2025 Shingrix Vaccine(1 of 2) due on 11/13/2025 Covid-19 Vaccine( season) due on 11/13/2025 Diabetic Foot Exam due on 04/29/2025 HbA1C due on 05/14/2025 Dilated Retinal Exam due on 09/26/2025 Urine Albumin:Creatinine Ratio due on 11/12/2025 LDL Cholesterol due on 11/12/2025 Annual PCP Team Chronic Disease Visit due on 11/13/2025 Colorectal Cancer Screening due on 03/29/2031 Abdominal Aortic Aneurysm Screening Completed Influenza Vaccine Completed Hepatitis C Screening Completed Pneumococcal Vaccine: 50+ Completed Data reviewed Latest Ref Rng 05/14/2024 11/12/2024 WBC 3.70 - 11.00 k/uL 5.23 5.78 RBC 4.20 - 6.00 m/uL 4.85 4.93 Hemoglobin 13.0 - 17.0 g/dL 14.8 15.1 Hematocrit 39.0 - 51.0 % 43.3 43.3 MCV 80.0 - 100.0 fL 89.3 87.8 MCH 26.0 - 34.0 pg 30.5 30.6 MCHC 30.5 - 36.0 g/dL 34.2 34.9 RDW-CV 11.5 - 15.0 % 12.5 12.3 Platelet Count 150 - 400 k/uL 144 (L) 159 MPV 9.0 - 12.7 fL 9.6 9.8 Neut% % 52.9 52.8 Abs Neut (ANC) 1.45 - 7.50 k/uL 2.77 3.05 Lymph% % 30.8 32.5 Abs Lymph 1.00 - 4.00 k/uL 1.61 1.88 Larimer% % 12.2 11.2 Abs Larimer <0.87 k/uL 0.64 0.65 Eosin% % 3.1 2.6 Abs Eosin <0.46 k/uL 0.16 0.15 Baso% % 0.8 0.7 Abs Baso <0.11 k/uL 0.04 0.04 Immature Gran % % 0.2 0.2 IMMATURE GRANS (ABS) <0.10 k/uL <0.03 <0.03 NRBC /100 WBC 0.0 0.0 Absolute nRBC <0.01 k/uL <0.01 <0.01 DTYPE Auto Auto Protein, Total 6.3 - 8.0 g/dL 6.3 6.0 (L) Albumin 3.9 - 4.9 g/dL 3.9 3.9 Calcium 8.5 - 10.2 mg/dL 8.7 8.5 Bilirubin, Total 0.2 - 1.3 mg/dL 0.7 0.9 Alkaline Phosphatase 38 - 113 U/L 112 102 AST 14 - 40 U/L 17 15 ALT 10 - 54 U/L 22 17 Glucose 74 - 99 mg/dL 149 (H) 136 (H) BUN 9 - 24 mg/dL 16 17 Creatinine 0.73 - 1.22 mg/dL 0.93 0.92 Sodium 136 - 144 mmol/L 142 137 Potassium 3.7 - 5.1 mmol/L 4.2 4.1 Chloride 98 - 107 mmol/L 107 107 CO2 22 - 30 mmol/L 25 22 Anion Gap 8 - 15 mmol/L 10 8 eGFR >=60 mL/min/1.73m? 88 88 Cholesterol, Total <200 mg/dL 130 Triglyceride <150 mg/dL 71 HDL Cholesterol >39 mg/dL 37 (L) LDL Cholesterol, Calculated <100 mg/dL 79 Non HDL Cholesterol <130 mg/dL 93 VLDL Cholesterol <30 mg/dL 11 TC:HDL Ratio <5.10 3.51 LDL:HDL Ratio <2.54 2.14 Fasting Time hrs 12 Creatinine, Ur Random (UCRR) 20.0 - 300.0 mg/dL 135.3 Albumin, Urine Random mg/L 117.3 Albumin/Creat Ratio <30 mg/g 87 (H) Hemoglobin A1C 4.3 - 5.6 % 6.4 (H) 6.4 (H) Estimated Average Glucose mg/dL 137 137 Legend: (L) Low (H) High 1. Controlled type 2 diabetes mellitus without complication, without long-term current use of insulin ([facility]) (E11.9) 2. Diabetic polyneuropathy associated with type 2 diabetes mellitus (HCC) (E11.42) - Hemoglobin A1c remains stable at 6.4%, consistent with previous measurement 6 months ago. - Patient adheres to diabetic diet and metformin regimen; no new symptoms of neuropathy or retinopathy reported. - Educated on the importance of daily fasting blood glucose monitoring; target fasting glucose <130 mg/dL. - Advised to continue daily foot inspections; follow-up with internal corrosion specialist Dr. Nance scheduled annually in April. - Urinalysis revealed proteinuria; continue valsartan therapy to manage. 3. 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 S/P angioplasty with stent (Z95.820) 5. Systolic congestive heart failure, unspecified HF chronicity ([facility]) (I50.20) - No new episodes of chest pain, dyspnea, palpitations, or edema reported; mild ankle edema observed, likely secondary to tight socks. - Current medications include Plavix, nitroglycerin, Coreg, and Lipitor. - LDL cholesterol elevated at 79 mg/dL; increased Lipitor dosage from 40 mg to 80 mg daily to achieve target LDL <70 mg/dL. - Educated on potential side effects of Lipitor, including myalgia; instructed to report any new muscle aches. - Ordered fasting lipid panel to be performed in 3 months to assess efficacy of increased Lipitor dosage. - Follow-up with steel pourer scheduled for late November. 6. Primary hypertension (I10) - Blood pressure measured at 130/62 mmHg, borderline control. - Continue valsartan therapy; emphasized dietary sodium restriction. 7. 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 - Discussed benefits of regular aerobic exercise for cardiovascular health. 8. RAMOS (nonalcoholic steatohepatitis) (K75.81) LFTs normal. will monitor. Work on weight loss with improved diet and exercise. 9. Gastroesophageal reflux disease, unspecified whether esophagitis present (K21.9) - GERD symptoms well-controlled with Prilosec; no recent episodes of heartburn. Son Ramirez MD CNOV Observed: 11/13/2024 7:20 AM Status: COMPLETED Source: [facility] ALISSA PICHARDO ([id number]) 1950 M Date Time Provider Department 11/13/24 7:20 AM SON RAMIREZWS During your visit today, we recorded the following information about you: Pulse Blood pressure Weight Height 72/minute 130/62 114.4 kg 1.753 m Son Ramirez MD 11/13/2024 7:52 AM Signed Chief Complaint Patient presents with: 6 Month Exam Recording using [employer] software for draft documentation of the visit was discussed with the patient/authorized employer relations representative; all questions welcomed and answered. Patient/authorized employer relations representative agreed to proceed HPI Alissa Pichardo is a 74 year old male who presents here today for Above Complaints. Patient has been in good health without recent hospitalizations, ER visits, or falls. No concerns today. Diabetes Mellitus: - A1c remains stable at 6.4%. - Patricia adheres to diabetic diet most of the time. - Consistently takes metformin daily. - Rarely checks blood glucose levels at home, approximately once a month. - No new or worsening symptoms; recent eye exam showed no retinopathy. - Monitors feet daily; internal corrosion specialist recommended iodine for moisture between toes. Coronary Artery Disease: - Last cardiology visit at [facility] in May; next appointment scheduled for November. - No new angina, dyspnea, palpitations, or edema. - Avoids salt and cholesterol in diet. - Takes Plavix, Coreg, Lipitor, and nitroglycerin as prescribed. - Recent LDL cholesterol level was 79 mg/dL; previous level was 53 mg/dL. Congestive Heart Failure: - No new symptoms of cough, wheezing, or dyspnea. - Takes valsartan as prescribed. GERD: -Controlled with Prilosec Dietary Protein Deficiency: - Recent lab work showed a slight decrease in Patricia's protein levels from 6.3 to 6.0 g/dL. Shoulder Pain: - Mild shoulder soreness attributed to lifting activities. Past medical history, appointments, medications, allergies reviewed. 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 type 2 diabetes mellitus ([facility]) 04/2020 Obesity S/P angioplasty with stent 03/2023 YUKI to obtuse marginal branch Thrombocytopenia Previous Surgical History PAST SURGICAL HISTORY Procedure Laterality Date CARPAL TUNNEL right COLONOSCOPY 2004, 2015 COLONOSCOPY FLX DX W/COLLJ SPEC WHEN PFRMD 03/29/2021 -normal biopsies, per DP repeat in 10 years LAPAROSCOPY REPAIR INCISIONAL HERNIA REDUCIBLE 06/19/2017 Hernia repair, umbilical/incisional [facility] - laparoscopic - [address] mesh LAPS SURG CHOLECYSTECTOMY W/CHOLANGIOGRAPHY 08/19/2014 attempted, failed IOC, fatty liver PAST SURGICAL HISTORY OF 04/30/2021 left shoulder arthroscopy, subacromial decompression, biceps tenotomy, arthroscopic rotator cuff repair, and lipoma excision Family History FAMILY HISTORY Problem Relation Age of Onset No Known Problems Mother Diabetes Father Patient Allergies ALLERGIES Allergen Reactions Farxiga [Dapagliflo* Rash Chlorhexidine Hives Current Medications Current Outpatient Medications on File Prior to Visit Medication Sig omeprazole (PRILOSEC) 20 mg capsule Take 1 capsule by mouth once daily. carvedilol (COREG) 25 mg tablet Take 1 tablet by mouth two times a day with meals. valsartan (DIOVAN) 320 mg tablet Take 1 tablet by mouth once daily. clopidogrel (PLAVIX) 75 mg tablet TAKE 4 TABLETS FIRST DAY AND THEN 1 TABLET DAILY atorvastatin (LIPITOR) 40 mg tablet Take 1 tablet by mouth daily at bedtime. For cholesterol. metFORMIN (GLUCOPHAGE) 500 mg tablet Take 1 tablet by mouth daily with breakfast. nitroglycerin sublingual (NITROSTAT) 0.4 mg SL tablet Dissolve 1 tablet under the tongue every 5 minutes as needed for chest pain. Multivitamin capsule Take 1 capsule by mouth once daily. No current facility-administered medications on file prior to visit. Social History Social History Tobacco Use Smoking status: Former Current packs/day: 0.00 Average packs/day: 0.5 packs/day for 20.0 years (10.0 ttl pk-yrs) Types: Cigarettes Start date: 07/31/1974 Quit date: 07/31/1994 Years since quittin.3 Smokeless tobacco: Former Vaping Use Vaping status: Never Used Substance Use Topics Alcohol use: Yes Alcohol/week: 1.0 standard drink of alcohol Types: 1 Cans of Beer (12oz) per week Comment: beer on weekend. Drug use: No Review of Symptoms REVIEW OF SYSTEMS GENERAL: No weight loss, malaise or fevers RESPIRATORY: Negative for cough, hemoptysis, wheezing, COPD, dyspnea or shortness of breath CARDIOVASCULAR: Negative for chest pain, leg swelling, hypertension, CHF or palpitations GI: No nausea, vomiting, or diarrhea SKIN: Negative for lesions, rash, and itching EXAM: BP 130/62 Pulse 72 Ht 175.3 cm (5' 9) Wt 114.4 kg (252 lb 3.2 oz) SpO2 95% BMI 37.24 kg/m? General Appearance: Well appearing, alert, in no acute distress, well-hydrated, well nourished.. Skin: Skin color, texture, turgor normal, no suspicious rashes or lesions. Lungs: Lungs clear to auscultation. No wheezing, rhonchi, rales.. Heart: RRR without murmur, gallop, or rubs. No ectopy. Abdomen: Normal abdominal exam, Abdomen soft, non-tender. Bowel sounds normal. No masses, organomegaly. Extremities: Edema: trace edema above socks bilaterally. . Health Maintenance List Depression Screening Never done Anxiety Screening Never done Medicare Annual Wellness Visit Never done Advance Directive Discussion Never done DTaP,Tdap,Td Vaccine(1 - Tdap) due on 11/13/2025 RSV Vaccine(1 - Risk 60-74 years 1-dose series) due on 11/13/2025 Shingrix Vaccine(1 of 2) due on 11/13/2025 Covid-19 Vaccine( season) due on 11/13/2025 Diabetic Foot Exam due on 04/29/2025 HbA1C due on 05/14/2025 Dilated Retinal Exam due on 09/26/2025 Urine Albumin:Creatinine Ratio due on 11/12/2025 LDL Cholesterol due on 11/12/2025 Annual PCP Team Chronic Disease Visit due on 11/13/2025 Colorectal Cancer Screening due on 03/29/2031 Abdominal Aortic Aneurysm Screening Completed Influenza Vaccine Completed Hepatitis C Screening Completed Pneumococcal Vaccine: 50+ Completed Data reviewed Latest Ref Rng 05/14/2024 11/12/2024 WBC 3.70 - 11.00 k/uL 5.23 5.78 RBC 4.20 - 6.00 m/uL 4.85 4.93 Hemoglobin 13.0 - 17.0 g/dL 14.8 15.1 Hematocrit 39.0 - 51.0 % 43.3 43.3 MCV 80.0 - 100.0 fL 89.3 87.8 MCH 26.0 - 34.0 pg 30.5 30.6 MCHC 30.5 - 36.0 g/dL 34.2 34.9 RDW-CV 11.5 - 15.0 % 12.5 12.3 Platelet Count 150 - 400 k/uL 144 (L) 159 MPV 9.0 - 12.7 fL 9.6 9.8 Neut% % 52.9 52.8 Abs Neut (ANC) 1.45 - 7.50 k/uL 2.77 3.05 Lymph% % 30.8 32.5 Abs Lymph 1.00 - 4.00 k/uL 1.61 1.88 Larimer% % 12.2 11.2 Abs Larimer <0.87 k/uL 0.64 0.65 Eosin% % 3.1 2.6 Abs Eosin <0.46 k/uL 0.16 0.15 Baso% % 0.8 0.7 Abs Baso <0.11 k/uL 0.04 0.04 Immature Gran % % 0.2 0.2 IMMATURE GRANS (ABS) <0.10 k/uL <0.03 <0.03 NRBC /100 WBC 0.0 0.0 Absolute nRBC <0.01 k/uL <0.01 <0.01 DTYPE Auto Auto Protein, Total 6.3 - 8.0 g/dL 6.3 6.0 (L) Albumin 3.9 - 4.9 g/dL 3.9 3.9 Calcium 8.5 - 10.2 mg/dL 8.7 8.5 Bilirubin, Total 0.2 - 1.3 mg/dL 0.7 0.9 Alkaline Phosphatase 38 - 113 U/L 112 102 AST 14 - 40 U/L 17 15 ALT 10 - 54 U/L 22 17 Glucose 74 - 99 mg/dL 149 (H) 136 (H) BUN 9 - 24 mg/dL 16 17 Creatinine 0.73 - 1.22 mg/dL 0.93 0.92 Sodium 136 - 144 mmol/L 142 137 Potassium 3.7 - 5.1 mmol/L 4.2 4.1 Chloride 98 - 107 mmol/L 107 107 CO2 22 - 30 mmol/L 25 22 Anion Gap 8 - 15 mmol/L 10 8 eGFR >=60 mL/min/1.73m? 88 88 Cholesterol, Total <200 mg/dL 130 Triglyceride <150 mg/dL 71 HDL Cholesterol >39 mg/dL 37 (L) LDL Cholesterol, Calculated <100 mg/dL 79 Non HDL Cholesterol <130 mg/dL 93 VLDL Cholesterol <30 mg/dL 11 TC:HDL Ratio <5.10 3.51 LDL:HDL Ratio <2.54 2.14 Fasting Time hrs 12 Creatinine, Ur Random (UCRR) 20.0 - 300.0 mg/dL 135.3 Albumin, Urine Random mg/L 117.3 Albumin/Creat Ratio <30 mg/g 87 (H) Hemoglobin A1C 4.3 - 5.6 % 6.4 (H) 6.4 (H) Estimated Average Glucose mg/dL 137 137 Legend: (L) Low (H) High 1. Controlled type 2 diabetes mellitus without complication, without long-term current use of insulin (HCC) (E11.9) 2. Diabetic polyneuropathy associated with type 2 diabetes mellitus (HCC) (E11.42) - Hemoglobin A1c remains stable at 6.4%, consistent with previous measurement 6 months ago. - Patient adheres to diabetic diet and metformin regimen; no new symptoms of neuropathy or retinopathy reported. - Educated on the importance of daily fasting blood glucose monitoring; target fasting glucose <130 mg/dL. - Advised to continue daily foot inspections; follow-up with internal corrosion specialist Dr. aNnce scheduled annually in April. - Urinalysis revealed proteinuria; continue valsartan therapy to manage. 3. 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 S/P angioplasty with stent (Z95.820) 5. Systolic congestive heart failure, unspecified HF chronicity (HCC) (I50.20) - No new episodes of chest pain, dyspnea, palpitations, or edema reported; mild ankle edema observed, likely secondary to tight socks. - Current medications include Plavix, nitroglycerin, Coreg, and Lipitor. - LDL cholesterol elevated at 79 mg/dL; increased Lipitor dosage from 40 mg to 80 mg daily to achieve target LDL <70 mg/dL. - Educated on potential side effects of Lipitor, including myalgia; instructed to report any new muscle aches. - Ordered fasting lipid panel to be performed in 3 months to assess efficacy of increased Lipitor dosage. - Follow-up with steel pourer scheduled for late November. 6. Primary hypertension (I10) - Blood pressure measured at 130/62 mmHg, borderline control. - Continue valsartan therapy; emphasized dietary sodium restriction. 7. 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 - Discussed benefits of regular aerobic exercise for cardiovascular health. 8. RAMOS (nonalcoholic steatohepatitis) (K75.81) LFTs normal. will monitor. Work on weight loss with improved diet and exercise. 9. Gastroesophageal reflux disease, unspecified whether esophagitis present (K21.9) - GERD symptoms well-controlled with Prilosec; no recent episodes of heartburn. MD James Velasquez Christopher B, MD 11/13/2024 7:49 AM Signed - Increase your atorvastatin (Lipitor) from 40 mg to 80 mg once daily; watch for any new muscle aches and report them if they occur. - Go to the lab in 3 months for a fasting lipid panel (no primary care appointment needed for the blood draw). - Keep your scheduled cardiology appointment in November as planned. - Schedule your next podiatry (foot doctor) visit in April for your annual check. - Continue all current medications as prescribed (metformin, valsartan, carvedilol, Plavix, nitroglycerin, Prilosec); refills have been sent to your pharmacy. - Check your fasting blood sugar every morning, aiming for a result under 130 mg/dL. - Eat more lean protein at meals or add a protein supplement (such as Ensure) to help raise your protein level. - Limit salt in your diet and follow a heart-healthy eating plan. - Aim for about 30 minutes of brisk walking 4-5 times per week for heart health. - Check your feet and dry thoroughly between toes every day, especially after showering. - At your pharmacy, ask about getting a tetanus booster and the shingles vaccine. - Your next primary care follow-up is in 6 months; the nurse will contact you to set that up sooner if you develop any new symptoms. 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 For cholesterol.Disp: 90 tabletRfl: 1 omeprazole (PRILOSEC) 20 mg capsuleTake 1 capsule by mouth once daily.Disp: 90 capsuleRfl: 1 LIPID PANEL, FASTING [SQLIPB] Order #: [id number] FUTURE COMPREHENSIVE METABOLIC PANEL [SQCMP] Order #: [id number] FUTURE Prescriptions as of 11/13/2024 - carvedilol (COREG) 25 mg tablet Take 1 tablet by mouth two times a day with meals. - atorvastatin (LIPITOR) 80 mg tablet Take 1 tablet by mouth daily at bedtime. For cholesterol. - omeprazole (PRILOSEC) 20 mg capsule Take 1 capsule by mouth once daily. - valsartan (DIOVAN) 320 mg tablet Take 1 tablet by mouth once daily. - clopidogrel (PLAVIX) 75 mg tablet TAKE 4 TABLETS FIRST DAY AND THEN 1 TABLET DAILY - metFORMIN (GLUCOPHAGE) 500 mg tablet Take 1 tablet by mouth daily with breakfast. - nitroglycerin sublingual (NITROSTAT) 0.4 mg SL tablet Dissolve 1 tablet under the tongue every 5 minutes as needed for chest pain. - Multivitamin capsule Take 1 capsule by mouth once daily. Problem List As Of Date 11/13/2024 Noted Resolved Cholelithiasis [K80.20] 07/31/2014 Abdominal pain, unspecified site [R10.9] 07/31/2014 Obesity [E66.9] 08/13/2014 HTN (hypertension) [I10] 08/13/2014 RAMOS (nonalcoholic steatohepatitis) [K75.81] 08/27/2014 Diabetes mellitus type II, controlled (HCC) [E1* Mild nonproliferative diabetic retinopathy of b*04/2020 Thrombocytopenia (HCC) [D69.6] 10/23/2020 10/17/2022 Colitis [K52.9] 03/29/2021 03/29/2021 Obesity, Class II, BMI 35-39.9 [E66.812] 10/17/2022 Systolic congestive heart failure (HCC) [I50.20]04/17/2023 NSTEMI (non-ST elevated myocardial infarction) *04/17/2023 CAD (coronary artery disease) [I25.10] 04/17/2023 Carpal tunnel syndrome on right [G56.01] S/P angioplasty with stent [Z95.820] 03/2023 GERD (gastroesophageal reflux disease) [K21.9] Other instructions from your clinician: - Increase your atorvastatin (Lipitor) from 40 mg to 80 mg once daily; watch for any new muscle aches and report them if they occur. - Go to the lab in 3 months for a fasting lipid panel (no primary care appointment needed for the blood draw). - Keep your scheduled cardiology appointment in November as planned. - Schedule your next podiatry (foot doctor) visit in April for your annual check. - Continue all current medications as prescribed (metformin, valsartan, carvedilol, Plavix, nitroglycerin, Prilosec); refills have been sent to your pharmacy. - Check your fasting blood sugar every morning, aiming for a result under 130 mg/dL. - Eat more lean protein at meals or add a protein supplement (such as Ensure) to help raise your protein level. - Limit salt in your diet and follow a heart-healthy eating plan. - Aim for about 30 minutes of brisk walking 4-5 times per week for heart health. - Check your feet and dry thoroughly between toes every day, especially after showering. - At your pharmacy, ask about getting a tetanus booster and the shingles vaccine. - Your next primary care follow-up is in 6 months; the nurse will contact you to set that up sooner if you develop any new symptoms. Prescriptions ordered this encounter Disp Refills Start End CARVEDILOL 25 MG TABLET 180 * 1 11/13/2024 05/12/2025 Route: PO Sig: Take 1 tablet by mouth two times a day with meals. ATORVASTATIN 80 MG TABLET 90 t* 1 11/13/2024 05/12/2025 Route: PO Sig: Take 1 tablet by mouth daily at bedtime. For cholesterol. OMEPRAZOLE 20 MG CAPSULE,DELAYED REL* 90 c* 1 11/13/2024 05/12/2025 Route: PO Sig: Take 1 capsule by mouth once daily. Medications Discontinued During This Encounter Prescriptions - Compression Knee Highs (Discontinued) KNEE HIGH COMPRESSION STOCKINGS 30-40 MM. DX: EDEMA - Omeprazole Magnesium (PRILOSEC OTC) 20 mg tablet (Discontinued) Take 1 tablet by mouth once daily. - atorvastatin (LIPITOR) 40 mg tablet (Discontinued) Take 1 tablet by mouth daily at bedtime. For cholesterol. - carvedilol (COREG) 25 mg tablet (Discontinued) Take 1 tablet by mouth two times a day with meals. - omeprazole (PRILOSEC) 20 mg capsule (Discontinued) Take 1 capsule by mouth once daily. Disposition: Return in about 6 months (around 05/15/2025). Follow-up and Disposition History for Encounter Date Provider Department Center 11/13/2024 [id number] RAMIREZ*THAOPKETAN [facility] Encounter Status:Closed by SON RAMIREZ on 11/13/24 ALBUMIN/CREATININE RATIO, URINE Collect ed: 11/12/2024 7:12 AM Status: F Source: [facility] Order Comment: Specimen Type : URINE SPECIMEN Ordering Facility: [facility] Address: [address] [place] [address] TYPE CODE TESTS RESULT OUT OF RANGE REFERENCE UNITS LAB 2161-8(LOINC) Creat Ur-mCnc 135.3 20.0-300.0 m g/dL LAB 18099-5(LOINC ) Microalbumin Ur-mCnc 117.3 mg/L LAB 9318-7(LOINC) Albumin/Creat Ur 87 High <30 mg/g Result Comment: Adult Male a nd Female Nephrotic Criteria: <30 mg/g is considered normal to mildly increased 30-300 mg/g is considered moderately increased >300 mg/g is considered severely increased KDIGO. (2013). KDIGO 2012 Clinical Practice Guideline for the Evaluation and Management of Chronic Kidney Disease. Official Journal of the International Society of Nephrology, 3(1), 1-150. Performed By: #### UACR #### [facility] CLIA [id number] [address] [place] [address] [place] CBC W AUTO DIFF BLD Collected: 11/12/2024 7:[address] atus: F Source: [facility] Order Comment: Specimen Type : BLOOD SPECIMEN Ordering Facility: [facility] Address: [address] [place] [address] TYPE CODE TESTS RESULT OUT OF RANGE REFERENCE UNITS LAB 6690-2(LOINC) WBC # Bld Auto 5.78 3.70-11.00 k/uL LAB 789-8(LOINC) RBC # Bld Auto 4.93 4.20-6.00 m/ uL LAB 718-7([facility]) Hgb Bld-mCnc 15.1 13.0-17.0 g/dL LAB 4544-3([facility]) Hct VFr Bld Auto 43.3 39.0-51.0 % LAB 787-2([facility]) MCV RBC Auto 87.8 80.0-100.0 fL LAB 785-6([facility]) MCH RBC Qn Auto 30.6 26.0-34.0 p g LAB 786-4([facility]) MCHC RBC Auto-mCnc 34.9 30.5-36.0 g/dL LAB 24641-0([facility]) RDW RBC-Rto 12.3 11.5-15.0 % LAB 777-3([facility]) Platelet # Bld Auto 159 150-400 k/uL LAB 85570-2([facility]) PMV Bld Auto 9.8 9.0-12.7 fL LAB 770-8([facility]) Neutrophils/leuk NFr Bld Auto 52.8 % LAB 751-8([facility]) Neutrophils # Bld Auto 3.05 1.45-7.50 k/uL LAB 736-9([facility]) Lymphocytes/leuk NFr Bld Auto 32.5 % LAB 731-0([facility]) Lymphocytes # Bld Auto 1.88 1.00-4.00 k/uL LAB 5905-5([facility]) Monocytes/leuk NFr Bld Auto 11.2 % LAB 742-7([facility]) Monocytes # Bld Auto 0.65 <0.87 k/uL LAB 713-8([facility]) Eosinophil/leuk NFr Bld Auto 2.6 % LAB 711-2([facility]) Eosinophil # Bld Auto 0.15 <0.46 k/uL LAB 706-2([facility]) Basophils/leuk NFr Bld Auto 0.7 % LAB 704-7([facility]) Basophils # Bld Auto 0.04 <0.11 k/uL LAB 26193-9([facility]) Imm Granulocytes/cheryl k NFr Bld Auto 0.2 % LAB 83534-7([facility]) Imm Granulocytes # Bld Auto <0.03 <0.10 k/uL LAB 38032-7([facility]) nRBC/100 WBC Bld-Rto 0.0 /100 WBC LAB 771-6([facility]) nRBC # Bld Auto <0.01 <0.01 k/u L LAB 28499-4([facility]) Differential method Bld Auto Performed By: #### 21671-8 # ### [facility] CLIA [id number] [address] [place] [address] [place] LIPID 1996 PNL SERPL Collected: 025 7:09 AM Status: F Source: [facility] Order Comment: Specimen Type : BLOOD SPECIMEN Ordering Facility: [facility] Address: [address] [place] [address] TYPE CODE TESTS RESULT OUT OF RANGE REFERENCE UNITS LAB 3-3([facility]) Cholest SerPl-mCnc 130 <200 mg/dL Result Comment: <200 mg/dL, Desirable 200-239 mg/dL, Borderline high >239 mg/dL, High LAB 2571-8([facility]) Trigl SerPl-mCnc 71 <150 mg/dL Result Comment: <150 mg/dL, Normal 150-199 mg/dL, Borderline high 200-499 mg/dL, High >499 mg/dL, Very high LAB 5-9([facility]) HDLc SerPl-mCnc 37 Low >39 mg/dL Result Comment: 40-59 mg/dL, Acceptable >59 mg/dL, High: Negative risk factor for coronary heart disease <40 mg/dL, Low: Positive risk factor for coronary heart disease LAB 2088-1([facility]) LDLc SerPl-mCnc 79 <100 mg/dL Result Comment: <100 mg/dL, Optimal 100-129 mg/dL, Near optimal/above optimal 130-159 mg/dL, Borderline high 160-189 mg/dL, High >189 mg/dL, Very high Secondary prevention optimal LDL Cholesterol levels are recommended to be <70 mg/dL LDL cholesterol is calculated using the Olguin-NIH equation. LAB 89656-2(LOINC) NonHDLc SerPl-mCnc 93 <130 mg/dL Result Comment: <130 mg/dL, Optimal 130-159 mg/dL, Near optimal/above optimal 160-189 mg/dL, Borderline high 190-219 mg/dL, High >219 mg/dL, Very high Secondary prevention optimal non HDL Cholesterol levels are recommended to be <100 mg/dL LAB 66606-6(LOINC) VLDLc SerPl Calc-mCnc 11 <30 mg/dL LAB 9830-1(LOINC) Cholest/HDLc SerPl 3.51 <5.10 LAB 62623-1(LOINC) LDLc/HDLc SerPl 2.14 <2.54 Result Comment: Reference: 1. National Cholesterol Education Program ATP III Guideline At-A-Glance Quick Desk Reference: National Heart, Lung, and Blood [place]. National Institutes of Health. 2001: NIH Publication No. 01-3305. 2. An International Atherosclerosis Society position paper: global recommendations for the management of dyslipidemia: executive summary, Atherosclerosis. 2014: 232(2):410-413. LAB FT FASTING TIME 12 hrs Performed By: #### 32923-0 # ### [facility] CLIA [id number] [address] [place] [address] OF [facility] CLIA [id number] [address] [place] [address] DEPRECATED HGB A1C BLD Collected: 11/12 7:09 AM Status: F Source: [facility] Order Comment: Specimen Type : BLOOD SPECIMEN Ordering Facility: [facility] Address: [address] [place] [address] TYPE CODE TESTS RESULT OUT OF RANGE REFERENCE UNITS LAB 4548-4([facility]) HbA1c MFr Bld 6.4 High 4.3-5.6 % Result Comment: Lao Vesna betes Association guidelines indicate that patients with HgbA1c in the range 5.7-6.4% are at increased risk for development of diabetes, and intervention by lifestyle modification may be beneficial. HgbA1c greater or equal to 6.5% is considered diagnostic of diabetes. LAB 24066-8(LOINC) Est. average glucose Bld gHb Est-mCnc 137 mg/dL Result Comment: eAG: (Estima baudilio average glucose) is a calculated value from HgbA1c and is employer relations representative of the average blood glucose level in the last 2-3 month period. Performed By: #### 45736-3 # ### [facility] CLIA [id number] [address] [place] [address] [place] [address] [place] COMP METAB 2000 PNL SERPL Collected: 7:09 AM Status: F Source: [facility] Order Comment: Specimen Type : BLOOD SPECIMEN Ordering Facility: [facility] Address: [address] [place] [address] TYPE CODE TESTS RESULT OUT OF RANGE REFERENCE UNITS LAB 2885-2(LOINC) Prot SerPl-mCnc 6.0 Low 6.3-8.0 g/dL LAB 1751-7(LOINC) Albumin SerPl-mCnc 3.9 3.9-4.9 g/dL LAB 69426-9(LOINC) Calcium SerPl-mCnc 8.5 8.5-10.2 mg/dL LAB 1975-2(LOINC) Bilirub SerPl-mCnc 0.9 0.2-1.3 mg/dL LAB 6768-6(LOINC) ALP SerPl-cCnc 102 38-113 U/L LAB 1920-8(LOINC) AST SerPl-cCnc 15 14-40 U/L LAB 1742-6(LOINC) ALT SerPl-cCnc 17 10-54 U/L LAB 2345-7(LOINC) Glucose SerPl-mCnc 136 High 74-99 mg/dL Result Comment: The Lao Diabetes Association (ADA) provides guidance for cutoff values for fasting glucose and random glucose. The ADA defines fasting as no caloric intake for at least 8 hours. Fasting plasma glucose results between 100 to 125 mg/dL indicate increased risk for diabetes (prediabetes). Fasting plasma glucose results greater than or equal to 126 mg/dL meet the criteria for diagnosis of diabetes. In the absence of unequivocal hyperglycemia, results should be confirmed by repeat testing. In a patient with classic symptoms of hyperglycemia or hyperglycemic crisis, random plasma glucose results greater than or equal to 200 mg/dL meet the criteria for diagnosis of diabetes. Reference: Standards of Medical Care in Diabetes 2016, Lao Diabetes Association. Diabetes Care. 2016.39(Suppl 1). LAB 3094-0(LOINC) BUN SerPl-mCnc 17 9-24 mg/ dL LAB 2160-0(LOINC) Creat SerPl-mCnc 0.92 0.73-1.22 mg/dL LAB 2951-2(LOINC) Sodium SerPl-sCnc 137 136-144 mmol/L LAB 2823-3(LOINC) Potassium SerPl-sCnc 4.1 3.7-5.1 mmol/L LAB 2075-0(LOINC) Chloride SerPl-sCnc 107 98-107 mmol/L LAB 2028-9(LOINC) CO2 SerPl-sCnc 22 22-30 mmo l/L LAB 04969-0(LOINC) Anion Gap SerPl-sCnc 8 8-15 mmol/L LAB 64678-7(LOINC) Creatinine + eGFR Pnl SerPlBld 88 >=60 mL/min/1 .73m??? Result Comment: Estimated Gl omerular Filtration Rate (eGFR) is calculated using the 2020 CKD-EPI creatinine equation. This equation utilizes serum creatinine, sex, and age as parameters. The creatinine assay has traceable calibration to isotope dilution-mass spectrometry. Refer to KDIGO guidelines for clinical interpretation. In patients with unstable renal function, e.g. those with acute kidney injury, the eGFR may not accurately reflect actual GFR. Performed By: #### 50262-4 # ### [facility] CLIA [id number] [address] [place] [address] [place] PVR ANK PRESS [facility] Observed: 12/2024 8:00 AM Status: F Source: [facility] Non-Invasive Vascular [facility] Lower Extremity Arterial Physiology Study Bilateral/Complete Date of service/time: 06/05/2024 8:00:26 AM Name: MR. ALISSA PICHARDO Date of : 1950 Age: 73 years Gender: M Clinical Indication Decreased pulses. TECHNIQUE -------- An arterial physiological examination was performed, including measurement of blood pressures using continuous wave Doppler and recording of plethysmographic with or without Doppler waveforms at the below-mentioned limb segments. FINDINGS -------- RIGHT SIDE AT REST Right Doppler Waveforms Dorsalis pedis: Multiphasic. Post tibial: Multiphasic. Right Pressures Brachial: 134 mmHg Ankle dorsalis pedis: 194 mmHg HARSHA: 1.43 Partially non-compressible arteries. Ankle posterior tibial: 196 mmHg HARSHA: 1.44 Partially non-compressible arteries. Digit: 149 mmHg Right PVR Waveforms Ankle: Normal. LEFT SIDE AT REST Left Doppler Waveforms Dorsalis pedis: Multiphasic. Post tibial: Multiphasic. Left Pressures Brachial: 136 mmHg Ankle dorsalis pedis: 187 mmHg HARSHA: 1.38 Partially non-compressible arteries. Ankle posterior tibial: 197 mmHg HARSHA: 1.45 Partially non-compressible arteries. Digit: 175 mmHg Left PVR Waveforms Ankle: Normal. IMPRESSION Compared to prior study of 04/15/2020, Remains normal tracing at the ankle and normal toe brachial index. RIGHT SIDE Resting right ankle brachial index: 1.44 Partially non-compressible arteries, HARSHA not accurate. Right toe brachial index: 1.10 Non-compressible vessels, results called by PVR tracings. Normal toe brachial index at rest in the right leg. Right ankle: Normal at rest. LEFT SIDE Resting left ankle brachial index: 1.45 Partially non-compressible arteries, HARSHA not accurate. Left toe brachial index: 1.29 Non-compressible vessels, results called by PVR tracings. Normal toe brachial index at rest in the left leg. Left ankle: Normal at rest. Technologist: Lilliana Winter RVT [facility] Ordering physician: ALISSA NANCE Interpreting physician: KELSEY Ron MD Final CC [facility] Image : [id number] See Link below for Image CNOV Observed: 05/15/2024 8:00 AM Status: COMPLETED Source: [facility] KYLEEALISSA ([id number]) 1950 M Date Time Provider Department 05/15/24 8:00 AM HEATHER MARQUEZ During your visit today, we recorded the following information about you: Pulse Respiration Blood pressure Weight 75/minute 18/minute 134/72 112.4 kg Heather Marquez APRN.CNP 05/15/2024 9:10 AM Signed 05/15/2024 Patient presents with: F/U 6 Month SUBJECTIVE: This is a 73 year old that is here today for Above Complaints. DIABETES MELLITUS:Since our last visit he denies excessive thirst or increased frequency of urination, chest pain or dyspnea , new or unusual visual symptoms, low sugar/hypoglycemic reactions, weight loss/gain, lightheadedness/dizziness, and bowel changes/loose stools Follows a diabetic diet most of the time. He is compliant with medication(s) and is tolerating med(s) without any side effects. He reports checking his glucose on a infrequent to not at all basis schedule . Patient's last HgA1C was Hemoglobin A1C (%) Date Value 05/14/2024 6.4 11/09/2023 6.3 04/16/2021 6.5 10/19/2020 6.7 ) Last Ophthalmology exam was within the past 12 months CAD/CHF/HX of STEMI and YUKI: followed with [facility] cardiology on 12/13/2023. Switched from Brilinta to Plavix. No bleeding issues. Last echo ON 08/09/2023 with EF of 40% HTN: Patient is compliant with meds Yes Monitors bp at home: sometimes 120-130's/ 60-70's. Denies side effects: Yes. Chest pain: No. Dyspnea: No. Edema: No. Palpitations: No. Syncope: No. Headache: No. Dizziness: No. HYPERLIPIDEMIA: Patient is taking medications: Yes. Patient is watching diet: Yes. Patient denies myalgias: Yes. Patient denies gi upset: Yes Going to go to [employer] to work on weight. Had lost some weight doing cardaic rehab but has since gained some back PAST MEDICAL HISTORY Diagnosis Date CAD (coronary artery disease) Carpal tunnel syndrome on right s/p surgical correction CHF (congestive heart failure) ([facility]) 04/17/2023 EF 45% Chronic left shoulder pain 20+ years, ran over by a sow Diabetes mellitus type II, controlled ([facility]) Fatty liver 05/02/2022 on US HTN (hypertension) Mild nonproliferative diabetic retinopathy of both eyes without macular edema associated with type 2 diabetes mellitus ([facility]) 04/2020 Obesity S/P angioplasty with stent 03/2023 YUKI to obtuse marginal branch Thrombocytopenia ([facility]) ALLERGIES Farxiga [Dapagliflozin] and Chlorhexidine MEDICATIONS Current Outpatient Medications Medication Sig clopidogrel (PLAVIX) 75 mg tablet TAKE 4 TABLETS FIRST DAY AND THEN 1 TABLET DAILY carvedilol (COREG) 25 mg tablet Take 1 tablet by mouth two times a day with meals. atorvastatin (LIPITOR) 40 mg tablet Take 1 tablet by mouth daily at bedtime. For cholesterol. Omeprazole Magnesium (PRILOSEC OTC) 20 mg tablet Take 1 tablet by mouth once daily. metFORMIN (GLUCOPHAGE) 500 mg tablet Take 1 tablet by mouth daily with breakfast. valsartan (DIOVAN) 320 mg tablet Take 1 tablet by mouth once daily. nitroglycerin sublingual (NITROSTAT) 0.4 mg SL tablet Dissolve 1 tablet under the tongue every 5 minutes as needed for chest pain. Multivitamin capsule Take 1 capsule by mouth once daily. Compression Knee Highs KNEE HIGH COMPRESSION STOCKINGS 30-40 MM. DX: EDEMA No current facility-administered medications for this visit. Medications and allergies reviewed by this provider. SOCIAL HISTORY Social History Tobacco Use Smoking status: Former Current packs/day: 0.00 Average packs/day: 0.5 packs/day for 20.0 years (10.0 ttl pk-yrs) Types: Cigarettes Start date: 07/31/1974 Quit date: 07/31/1994 Years since quittin.8 Smokeless tobacco: Former Vaping Use Vaping status: Never Used Substance Use Topics Alcohol use: Yes Alcohol/week: 1.0 standard drink of alcohol Types: 1 Cans of Beer (12oz) per week Comment: beer on weekend. Drug use: No REVIEW OF SYSTEMS All other reviewed and negative other than HPI. OBJECTIVE: BP 134/72 Pulse 75 Resp 18 Wt 112.4 kg (247 lb 12.8 oz) SpO2 94% BMI 36.59 kg/m? . Vital signs reviewed by this provider. APPEARANCE Well appearing, alert, in no acute distress, well-hydrated, well nourished. EYES conjunctiva and sclera normal. HEART RRR with normal S1 and S2, no murmurs, no gallops, no JVD appreciated LUNG clear to auscultation. No wheezes, rhonchi or rales EXTREMITIES Extremities normal, No deformities, No skin discoloration, and No edema SKIN Skin color, texture, turgor normal, no suspicious rashes or lesions to exposed skin Latest Ref Rn 05/14/2024 WBC 3.70 - 11.00 k/uL 5.23 RBC 4.20 - 6.00 m/uL 4.85 Hemoglobin 13.0 - 17.0 g/dL 14.8 Hematocrit 39.0 - 51.0 % 43.3 MCV 80.0 - 100.0 fL 89.3 MCH 26.0 - 34.0 pg 30.5 MCHC 30.5 - 36.0 g/dL 34.2 RDW-CV 11.5 - 15.0 % 12.5 Platelet Count 150 - 400 k/uL 144 (L) MPV 9.0 - 12.7 fL 9.6 Neut% % 52.9 Abs Neut (ANC) 1.45 - 7.50 k/uL 2.77 Lymph% % 30.8 Abs Lymph 1.00 - 4.00 k/uL 1.61 Larimer% % 12.2 Abs Larimer <0.87 k/uL 0.64 Eosin% % 3.1 Abs Eosin <0.46 k/uL 0.16 Baso% % 0.8 Abs Baso <0.11 k/uL 0.04 Immature Gran % % 0.2 IMMATURE GRANS (ABS) <0.10 k/uL <0.03 NRBC /100 WBC 0.0 Absolute nRBC <0.01 k/uL <0.01 DTYPE Auto Protein, Total 6.3 - 8.0 g/dL 6.3 Albumin 3.9 - 4.9 g/dL 3.9 Calcium 8.5 - 10.2 mg/dL 8.7 Bilirubin, Total 0.2 - 1.3 mg/dL 0.7 Alkaline Phosphatase 38 - 113 U/L 112 AST 14 - 40 U/L 17 ALT 10 - 54 U/L 22 Glucose 74 - 99 mg/dL 149 (H) BUN 9 - 24 mg/dL 16 Creatinine 0.73 - 1.22 mg/dL 0.93 Sodium 136 - 144 mmol/L 142 Potassium 3.7 - 5.1 mmol/L 4.2 Chloride 98 - 107 mmol/L 107 CO2 22 - 30 mmol/L 25 Anion Gap 8 - 15 mmol/L 10 eGFR >=60 mL/min/1.73m? 88 Hemoglobin A1C 4.3 - 5.6 % 6.4 (H) Estimated Average Glucose mg/dL 137 Latest Ref Rng 11/09/2023 Cholesterol, Total <200 mg/dL 101 Triglyceride <150 mg/dL 66 HDL Cholesterol >39 mg/dL 35 (L) Non HDL Cholesterol <130 mg/dL 66 Fasting Time hrs 12 VLDL Cholesterol <30 mg/dL 13 TC:HDL Ratio <5.10 2.89 LDL Cholesterol <100 mg/dL 53 LDL:HDL Ratio <2.54 1.51 Depression Screening Never done Anxiety Screening Never done Shingrix Vaccine(1 of 2) Never done RSV Vaccine(1 - Risk 60-74 years 1-dose series) Never done DTaP,Tdap,Td Vaccine(1 - Tdap) due on 10/06/2017 Advance Directive Discussion Never done BP Controlled (<130/80) due on 10/18/2023 Influenza Vaccine(1) due on 01/28/2024 Covid-19 Vaccine( season) due on 01/28/2024 Urine Albumin:Creatinine Ratio due on 04/17/2024 Dilated Retinal Exam due on 09/19/2024 LDL Cholesterol due on 11/08/2024 HbA1C due on 11/12/2024 Annual PCP Team Chronic Disease Visit due on 11/13/2024 Diabetic Foot Exam due on 04/29/2025 Colorectal Cancer Screening due on 03/29/2031 Abdominal Aortic Aneurysm Screening Completed Hepatitis C Screening Completed Pneumococcal Vaccine: 50+ Completed ASSESSMENT/PLAN: 1. Controlled type 2 diabetes mellitus without complication, without long-term current use of insulin (HCC) - ICD9: 250.00, ICD10: E11.9 (primary diagnosis) - Controlled - Continue current medications - Statin prescribed - atorvastatin - Blood glucose monitoring on a once daily schedule - Discussed need for and benefit of weight loss. BMI 36.59 kg/(m2) - Follow up in 6 months, sooner should any other issues arise. - ALBUMIN/CREATININE RATIO, URINE - COMPREHENSIVE METABOLIC PANEL - COMPLETE BLOOD COUNT AND DIFFERENTIAL - HEMOGLOBIN A1C 2. 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 Encounter for immunization - ICD9: V03.89, ICD10: Z23 - INFLUENZA VACCINE, PRSV FREE, AGE 65+ YR, HIGH DOSE, TRIVALENT (FLUZONE HIGH-DOSE) - [employer]yn[employer] COVID-19 VACCINE AGE 12+ YR (COMIRNATY) 4. Mild nonproliferative diabetic retinopathy of both eyes without macular edema associated with type 2 diabetes mellitus (HCC) - ICD9: 250.50, 362.04, ICD10: E11.3293 - plan as in #1 - ALBUMIN/CREATININE RATIO, URINE 5. Primary hypertension - ICD9: 401.9, ICD10: I10 - Controlled - Continue current medications - Recommend home blood pressure monitoring, to bring results to next visit - Encouraged sodium restriction, DASH or Mediterranean diet - Recommend regular aerobic exercise - Discussed need for and benefit of weight loss. BMI 36.59 kg/(m2) - Follow up in 6 months for hypertension visit - COMPREHENSIVE METABOLIC PANEL 6. Hyperlipidemia, unspecified hyperlipidemia type - ICD9: 272.4, ICD10: E78.5 - Controlled - Continue current medications - Counseled on healthy diet and regular exercise - Discussed need for and benefit of weight loss. BMI 36.59 kg/(m2) - Follow up in 6 months, sooner should any other issues arise. - LIPID PANEL BASIC - COMPREHENSIVE METABOLIC PANEL 7. Thrombocytopenia (HCC) - ICD9: 287.5, ICD10: D69.6 - stable at this time - recheck in 6 months - COMPLETE BLOOD COUNT AND DIFFERENTIAL 8. Obesity, Class II, BMI 35-39.9 - ICD9: 278.00, ICD10: E66.812 - Lengthy discussion in office today regarding diet and exercise. Discussed use of small plate to eat meals from, drink 1 glass of water 10-15 minutes prior to eating meal, drink 8 glasses of water daily, eat fresh fruit and vegetable during meal first then lean protein such as grilled/baked chicken breast or fish, limit carbohydrate intake (less pasta, breads, rice and snack foods) as well as limiting sugars (desserts etc). Important to count / track your calories and exercise as well. 9. S/P arterial stent - ICD9: V45.89, ICD10: Z95.9 - stable - continue current medications - follow-up with cardiology as recommended Heather Marquez APRN.DANCE HISTORIAN Prescription instructions reviewed with patient as applicable. Patient advised if symptoms do not improve or if symptoms worsen sooner, to contact their primary care physician. Potential red flag symptoms discussed with the patient. Reviewed appropriate action plan to take if red flag symptoms occur. Patient agreeable to treatment plan. Medical Decision Making: Problems: Moderate: 2+ stable chronic illnesses Data: Unique test(s) ordered: 3+ Risk: Moderate: Moderate risk from testing/treatment and Drug management Medical Decision Making Level: 4 - Moderate Allergies As of Date: 05/15/2024 Noted Allergy Reaction FARXIGA (DAPAGLIFLOZIN) 11/14/2023 2 - Rash CHLORHEXIDINE 04/06/2023 4 - Hives Date Reviewed: 05/15/2024 Reviewed by: Gloria Bustos LPN - Fully Assessed Reason for Visit: F/U 6 Month [444] Primary Visit Diagnosis:Controlled type 2 diabetes mellitus without complication, without long-term current use of insulin (HCC) [E11.9] Other Visit Diagnoses: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, unspecified vessel or lesion type [I25.10] Encounter for immunization [Z23] Mild nonproliferative diabetic retinopathy of both eyes without macular edema associated with type 2 diabetes mellitus (HCC) [E11.3293] Primary hypertension [I10] Hyperlipidemia, unspecified hyperlipidemia type [E78.5] Thrombocytopenia (HCC) [D69.6] Obesity, Class II, BMI 35-39.9 [E66.812] S/P arterial stent [Z95.9] Order(s):carvedilol (COREG) 25 mg tabletTake 1 tablet by mouth two times a day with meals.Disp: 180 tabletRfl: 1 valsartan (DIOVAN) 320 mg tabletTake 1 tablet by mouth once daily.Disp: 90 tabletRfl: 1 INFLUENZA VACCINE, PRSV FREE, AGE 65+ YR, HIGH DOSE, TRIVALENT (FLUZONE HIGH-DOSE) [82066CCI] Order #: [id number] [employer] COVID-19 VACCINE AGE 12+ YR (COMIRNATY) [36537ISH] Order #: [id number] ALBUMIN/CREATININE RATIO, URINE [SQUACR] Order #: [id number] FUTURE LIPID PANEL BASIC [SQLIPB] Order #: [id number] FUTURE COMPREHENSIVE METABOLIC PANEL [SQCMP] Order #: [id number] FUTURE COMPLETE BLOOD COUNT AND DIFFERENTIAL [SQCBCDIF] Order #: [id number] FUTURE HEMOGLOBIN A1C [BDFIF5J] Order #: [id number] FUTURE Prescriptions as of 05/15/2024 - carvedilol (COREG) 25 mg tablet Take 1 tablet by mouth two times a day with meals. - valsartan (DIOVAN) 320 mg tablet Take 1 tablet by mouth once daily. - clopidogrel (PLAVIX) 75 mg tablet TAKE 4 TABLETS FIRST DAY AND THEN 1 TABLET DAILY - atorvastatin (LIPITOR) 40 mg tablet Take 1 tablet by mouth daily at bedtime. For cholesterol. - Omeprazole Magnesium (PRILOSEC OTC) 20 mg tablet Take 1 tablet by mouth once daily. - metFORMIN (GLUCOPHAGE) 500 mg tablet Take 1 tablet by mouth daily with breakfast. - nitroglycerin sublingual (NITROSTAT) 0.4 mg SL tablet Dissolve 1 tablet under the tongue every 5 minutes as needed for chest pain. - Multivitamin capsule Take 1 capsule by mouth once daily. - Compression Knee Highs KNEE HIGH COMPRESSION STOCKINGS 30-40 MM. DX: EDEMA Problem List As Of Date 05/15/2024 Noted Resolved Cholelithiasis [K80.20] 07/31/2014 Abdominal pain, unspecified site [R10.9] 07/31/2014 Obesity [E66.9] 08/13/2014 HTN (hypertension) [I10] 08/13/2014 RAMOS (nonalcoholic steatohepatitis) [K75.81] 08/27/2014 Diabetes mellitus type II, controlled (HCC) [E1* Mild nonproliferative diabetic retinopathy of b*04/2020 Thrombocytopenia (HCC) [D69.6] 10/23/2020 10/17/2022 Colitis [K52.9] 03/29/2021 03/29/2021 Obesity, Class II, BMI 35-39.9 [E66.812] 10/17/2022 Systolic congestive heart failure (HCC) [I50.20]04/17/2023 NSTEMI (non-ST elevated myocardial infarction) *04/17/2023 CAD (coronary artery disease) [I25.10] 04/17/2023 Prescriptions ordered this encounter Disp Refills Start End CARVEDILOL 25 MG TABLET 180 * 1 05/15/2024 11/11/2024 Route: ORAL Sig: Take 1 tablet by mouth two times a day with meals. VALSARTAN 320 MG TABLET 90 t* 1 05/15/2024 05/15/2025 Route: ORAL Sig: Take 1 tablet by mouth once daily. Medications Discontinued During This Encounter Prescriptions - valsartan (DIOVAN) 320 mg tablet (Discontinued) Take 1 tablet by mouth once daily. - carvedilol (COREG) 25 mg tablet (Discontinued) Take 1 tablet by mouth two times a day with meals. Disposition: Return in about 6 months (around 11/13/2024). Follow-up and Disposition History for Encounter Date Provider Department Center 05/15/2024 [id number] MARQUEZ [facility] Encounter Status:Closed by HEATHER MARQUEZ on 05/15/24 PROGRESS Observed: 05/15/2024 7:54 AM Status: COMPLETED Source: [facility] Author: HEATHER MARQUEZ APRN.DANCE HISTORIAN Service: ? Author Type: Nurse Practitioner Type: Progress Notes Filed: 05/15/2024 09:10 Note Text: 05/15/2024 Patient presents with: F/U 6 Month SUBJECTIVE: This is a 73 year old that is here today for Above Complaints. DIABETES MELLITUS:Since our last visit he denies excessive thirst or increased frequency of urination, chest pain or dyspnea , new or unusual visual symptoms, low sugar/hypoglycemic reactions, weight loss/gain, lightheadedness/dizziness, and bowel changes/loose stools Follows a diabetic diet most of the time. He is compliant with medication(s) and is tolerating med(s) without any side effects. He reports checking his glucose on a infrequent to not at all basis schedule . Patient's last HgA1C was Hemoglobin A1C (%) Date Value 05/14/2024 6.4 11/09/2023 6.3 04/16/2021 6.5 10/19/2020 6.7 ) Last Ophthalmology exam was within the past 12 months CAD/CHF/HX of STEMI and YUKI: followed with [facility] cardiology on 12/13/2023. Switched from Brilinta to Plavix. No bleeding issues. Last echo ON 08/09/2023 with EF of 40% HTN: Patient is compliant with meds Yes Monitors bp at home: sometimes 120-130's/ 60-70's. Denies side effects: Yes. Chest pain: No. Dyspnea: No. Edema: No. Palpitations: No. Syncope: No. Headache: No. Dizziness: No. HYPERLIPIDEMIA: Patient is taking medications: Yes. Patient is watching diet: Yes. Patient denies myalgias: Yes. Patient denies gi upset: Yes Going to go to [employer] to work on weight. 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, ran over by a sow Diabetes mellitus type II, controlled (HCC) Fatty liver 05/02/2022 on HTN (hypertension) Mild nonproliferative diabetic retinopathy of both eyes without macular edema associated with type 2 diabetes mellitus (HCC) 04/2020 Obesity S/P angioplasty with stent 03/2023 YUKI to obtuse marginal branch Thrombocytopenia (HCC) ALLERGIES Farxiga [Dapagliflozin] and Chlorhexidine MEDICATIONS Current Outpatient Medications Medication Sig clopidogrel (PLAVIX) 75 mg tablet TAKE 4 TABLETS FIRST DAY AND THEN 1 TABLET DAILY carvedilol (COREG) 25 mg tablet Take 1 tablet by mouth two times a day with meals. atorvastatin (LIPITOR) 40 mg tablet Take 1 tablet by mouth daily at bedtime. For cholesterol. Omeprazole Magnesium (PRILOSEC OTC) 20 mg tablet Take 1 tablet by mouth once daily. metFORMIN (GLUCOPHAGE) 500 mg tablet Take 1 tablet by mouth daily with breakfast. valsartan (DIOVAN) 320 mg tablet Take 1 tablet by mouth once daily. nitroglycerin sublingual (NITROSTAT) 0.4 mg SL tablet Dissolve 1 tablet under the tongue every 5 minutes as needed for chest pain. Multivitamin capsule Take 1 capsule by mouth once daily. Compression Knee Highs KNEE HIGH COMPRESSION STOCKINGS 30-40 MM. DX: EDEMA No current facility-administered medications for this visit. Medications and allergies reviewed by this provider. SOCIAL HISTORY Social History Tobacco Use Smoking status: Former Current packs/day: 0.00 Average packs/day: 0.5 packs/day for 20.0 years (10.0 ttl pk-yrs) Types: Cigarettes Start date: 07/31/1974 Quit date: 07/31/1994 Years since quittin.8 Smokeless tobacco: Former Vaping Use Vaping status: Never Used Substance Use Topics Alcohol use: Yes Alcohol/week: 1.0 standard drink of alcohol Types: 1 Cans of Beer (12oz) per week Comment: beer on weekend. Drug use: No REVIEW OF SYSTEMS All other reviewed and negative other than HPI. OBJECTIVE: BP 134/72 Pulse 75 Resp 18 Wt 112.4 kg (247 lb 12.8 oz) SpO2 94% BMI 36.59 kg/m? . Vital signs reviewed by this provider. APPEARANCE Well appearing, alert, in no acute distress, well-hydrated, well nourished. EYES conjunctiva and sclera normal. HEART RRR with normal S1 and S2, no murmurs, no gallops, no JVD appreciated LUNG clear to auscultation. No wheezes, rhonchi or rales EXTREMITIES Extremities normal, No deformities, No skin discoloration, and No edema SKIN Skin color, texture, turgor normal, no suspicious rashes or lesions to exposed skin Latest Ref [facility] 05/14/2024 WBC 3.70 - 11.00 k/uL 5.23 RBC 4.20 - 6.00 m/uL 4.85 Hemoglobin 13.0 - 17.0 g/dL 14.8 Hematocrit 39.0 - 51.0 % 43.3 MCV 80.0 - 100.0 fL 89.3 MCH 26.0 - 34.0 pg 30.5 MCHC 30.5 - 36.0 g/dL 34.2 RDW-CV 11.5 - 15.0 % 12.5 Platelet Count 150 - 400 k/uL 144 (L) MPV 9.0 - 12.7 fL 9.6 Neut% % 52.9 Abs Neut (ANC) 1.45 - 7.50 k/uL 2.77 Lymph% % 30.8 Abs Lymph 1.00 - 4.00 k/uL 1.61 Larimer% % 12.2 Abs Larimer <0.87 k/uL 0.64 Eosin% % 3.1 Abs Eosin <0.46 k/uL 0.16 Baso% % 0.8 Abs Baso <0.11 k/uL 0.04 Immature Gran % % 0.2 IMMATURE GRANS (ABS) <0.10 k/uL <0.03 NRBC /100 WBC 0.0 Absolute nRBC <0.01 k/uL <0.01 DTYPE Auto Protein, Total 6.3 - 8.0 g/dL 6.3 Albumin 3.9 - 4.9 g/dL 3.9 Calcium 8.5 - 10.2 mg/dL 8.7 Bilirubin, Total 0.2 - 1.3 mg/dL 0.7 Alkaline Phosphatase 38 - 113 U/L 112 AST 14 - 40 U/L 17 ALT 10 - 54 U/L 22 Glucose 74 - 99 mg/dL 149 (H) BUN 9 - 24 mg/dL 16 Creatinine 0.73 - 1.22 mg/dL 0.93 Sodium 136 - 144 mmol/L 142 Potassium 3.7 - 5.1 mmol/L 4.2 Chloride 98 - 107 mmol/L 107 CO2 22 - 30 mmol/L 25 Anion Gap 8 - 15 mmol/L 10 eGFR >=60 mL/min/1.73m? 88 Hemoglobin A1C 4.3 - 5.6 % 6.4 (H) Estimated Average Glucose mg/dL 137 Latest Ref Rng 11/09/2023 Cholesterol, Total <200 mg/dL 101 Triglyceride <150 mg/dL 66 HDL Cholesterol >39 mg/dL 35 (L) Non HDL Cholesterol <130 mg/dL 66 Fasting Time hrs 12 VLDL Cholesterol <30 mg/dL 13 TC:HDL Ratio <5.10 2.89 LDL Cholesterol <100 mg/dL 53 LDL:HDL Ratio <2.54 1.51 Depression Screening Never done Anxiety Screening Never done Shingrix Vaccine(1 of 2) Never done RSV Vaccine(1 - Risk 60-74 years 1-dose series) Never done DTaP,Tdap,Td Vaccine(1 - Tdap) due on 10/06/2017 Advance Directive Discussion Never done BP Controlled (<130/80) due on 10/18/2023 Influenza Vaccine(1) due on 01/28/2024 Covid-19 Vaccine( season) due on 01/28/2024 Urine Albumin:Creatinine Ratio due on 04/17/2024 Dilated Retinal Exam due on 09/19/2024 LDL Cholesterol due on 11/08/2024 HbA1C due on 11/12/2024 Annual PCP Team Chronic Disease Visit due on 11/13/2024 Diabetic Foot Exam due on 04/29/2025 Colorectal Cancer Screening due on 03/29/2031 Abdominal Aortic Aneurysm Screening Completed Hepatitis C Screening Completed Pneumococcal Vaccine: 50+ Completed ASSESSMENT/PLAN: 1. Controlled type 2 diabetes mellitus without complication, without long-term current use of insulin (HCC) - ICD9: 250.00, ICD10: E11.9 (primary diagnosis) - Controlled - Continue current medications - Statin prescribed - atorvastatin - Blood glucose monitoring on a once daily schedule - Discussed need for and benefit of weight loss. BMI 36.59 kg/(m2) - Follow up in 6 months, sooner should any other issues arise. - ALBUMIN/CREATININE RATIO, URINE - COMPREHENSIVE METABOLIC PANEL - COMPLETE BLOOD COUNT AND DIFFERENTIAL - HEMOGLOBIN A1C 2. 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 Encounter for immunization - ICD9: V03.89, ICD10: Z23 - INFLUENZA VACCINE, PRSV FREE, AGE 65+ YR, HIGH DOSE, TRIVALENT (FLUZONE HIGH-DOSE) - [employer]yn[employer] COVID-19 VACCINE AGE 12+ YR (COMIRNATY) 4. Mild nonproliferative diabetic retinopathy of both eyes without macular edema associated with type 2 diabetes mellitus (HCC) - ICD9: 250.50, 362.04, ICD10: E11.3293 - plan as in #1 - ALBUMIN/CREATININE RATIO, URINE 5. Primary hypertension - ICD9: 401.9, ICD10: I10 - Controlled - Continue current medications - Recommend home blood pressure monitoring, to bring results to next visit - Encouraged sodium restriction, DASH or Mediterranean diet - Recommend regular aerobic exercise - Discussed need for and benefit of weight loss. BMI 36.59 kg/(m2) - Follow up in 6 months for hypertension visit - COMPREHENSIVE METABOLIC PANEL 6. Hyperlipidemia, unspecified hyperlipidemia type - ICD9: 272.4, ICD10: E78.5 - Controlled - Continue current medications - Counseled on healthy diet and regular exercise - Discussed need for and benefit of weight loss. BMI 36.59 kg/(m2) - Follow up in 6 months, sooner should any other issues arise. - LIPID PANEL BASIC - COMPREHENSIVE METABOLIC PANEL 7. Thrombocytopenia (HCC) - ICD9: 287.5, ICD10: D69.6 - stable at this time - recheck in 6 months - COMPLETE BLOOD COUNT AND DIFFERENTIAL 8. Obesity, Class II, BMI 35-39.9 - ICD9: 278.00, ICD10: E66.812 - Lengthy discussion in office today regarding diet and exercise. Discussed use of small plate to eat meals from, drink 1 glass of water 10-15 minutes prior to eating meal, drink 8 glasses of water daily, eat fresh fruit and vegetable during meal first then lean protein such as grilled/baked chicken breast or fish, limit carbohydrate intake (less pasta, breads, rice and snack foods) as well as limiting sugars (desserts etc). Important to count / track your calories and exercise as well. 9. S/P arterial stent - ICD9: V45.89, ICD10: Z95.9 - stable - continue current medications - follow-up with cardiology as recommended Heather Podlogjulio césar, ADVANCED QUALITY ENGINEER.DANCE HISTORIAN Prescription instructions reviewed with patient as applicable. Patient advised if symptoms do not improve or if symptoms worsen sooner, to contact their primary care physician. Potential red flag symptoms discussed with the patient. Reviewed appropriate action plan to take if red flag symptoms occur. Patient agreeable to treatment plan. Medical Decision Making: Problems: Moderate: 2+ stable chronic illnesses Data: Unique test(s) ordered: 3+ Risk: Moderate: Moderate risk from testing/treatment and Drug management Medical Decision Making Level: 4 - Moderate COMP METAB 2000 PNL SERPL Collected: 7:25 AM Status: F Source: [facility] Order Comment: Specimen Type : BLOOD SPECIMEN Ordering Facility: [facility] Address: [address] [place] [address] TYPE CODE TESTS RESULT OUT OF RANGE REFERENCE UNITS LAB 2885-2(LOINC) Prot SerPl-mCnc 6.3 6.3-8.0 g/dL LAB 1751-7(LOINC) Albumin SerPl-mCnc 3.9 3.9-4.9 g/dL LAB 12911-7(LOINC) Calcium SerPl-mCnc 8.7 8.5-10.2 mg/dL LAB 1975-2(LOINC) Bilirub SerPl-mCnc 0.7 0.2-1.3 mg/dL LAB 6768-6(LOINC) ALP SerPl-cCnc 112 38-113 U/L LAB 1920-8(LOINC) AST SerPl-cCnc 17 14-40 U/L LAB 1742-6(LOINC) ALT SerPl-cCnc 22 10-54 U/L LAB 2345-7(LOINC) Glucose SerPl-mCnc 149 High 74-99 mg/dL Result Comment: The [place] Diabetes Association (ADA) provides guidance for cutoff values for fasting glucose and random glucose. The ADA defines fasting as no caloric intake for at least 8 hours. Fasting plasma glucose results between 100 to 125 mg/dL indicate increased risk for diabetes (prediabetes). Fasting plasma glucose results greater than or equal to 126 mg/dL meet the criteria for diagnosis of diabetes. In the absence of unequivocal hyperglycemia, results should be confirmed by repeat testing. In a patient with classic symptoms of hyperglycemia or hyperglycemic crisis, random plasma glucose results greater than or equal to 200 mg/dL meet the criteria for diagnosis of diabetes. Reference: Standards of Medical Care in Diabetes 2016, [place] Diabetes Association. Diabetes Care. 2016.39(Suppl 1). LAB 3094-0(LOINC) BUN SerPl-mCnc 16 9-24 mg/ dL LAB 2160-0(LOINC) Creat SerPl-mCnc 0.93 0.73-1.22 mg/dL LAB 2951-2(LOINC) Sodium SerPl-sCnc 142 136-144 mmol/L LAB 2823-3(LOINC) Potassium SerPl-sCnc 4.2 3.7-5.1 mmol/L LAB 2075-0(LOINC) Chloride SerPl-sCnc 107 98-107 mmol/L LAB 2028-9(LOINC) CO2 SerPl-sCnc 25 22-30 mmo l/L LAB 41892-0(LOINC) Anion Gap SerPl-sCnc 10 8-15 mmol/L LAB 20794-3(LOINC) Creatinine + eGFR Pnl SerPlBld 88 >=60 mL/min/1 .73m??? Result Comment: Estimated Gl omerular Filtration Rate (eGFR) is calculated using the 2020 CKD-EPI creatinine equation. This equation utilizes serum creatinine, sex, and age as parameters. The creatinine assay has traceable calibration to isotope dilution-mass spectrometry. Refer to KDIGO guidelines for clinical interpretation. In patients with unstable renal function, e.g. those with acute kidney injury, the eGFR may not accurately reflect actual GFR. Performed By: #### [id number] # ### [facility] CLIA [id number] [address] [place] [address] [place] DEPRECATED HGB A1C BLD Collected: 05/14 7:25 AM Status: F Source: [facility] Comment: Specimen Type : BLOOD SPECIMEN Ordering Facility: [facility] Address: [address] [place] [address] TYPE CODE TESTS RESULT OUT OF RANGE REFERENCE UNITS LAB 4548-4([facility]) HbA1c MFr Bld 6.4 High 4.3-5.6 % Result Comment: [place] Ves[place] betes [employer] guidelines indicate that patients with HgbA1c in the range 5.7-6.4% are at increased risk for development of diabetes, and intervention by lifestyle modification may be beneficial. HgbA1c greater or equal to 6.5% is considered diagnostic of diabetes. LAB 30175-7([facility]) Est. average glucose Bld gHb Est-mCnc 137 mg/dL Result Comment: eAG: (Estima baudilio average glucose) is a calculated value from HgbA1c and is employer relations representative of the average blood glucose level in the last 2-3 month period. Performed By: #### [id number] # ### [facility] CLIA [id number] [address] [place] [address] [place] CBC W AUTO DIFF BLD Collected: 05/14/2024 7:[address] atus: F Source: [facility] Comment: Specimen Type : BLOOD SPECIMEN Ordering Facility: [facility] Address: [address] [place] [address] TYPE CODE TESTS RESULT OUT OF RANGE REFERENCE UNITS LAB 6690-2([facility]) WBC # Bld Auto 5.23 3.70-11.00 k/uL LAB 789-8([facility]) RBC # Bld Auto 4.85 4.20-6.00 m/ uL LAB 718-7([facility]) Hgb Bld-mCnc 14.8 13.0-17.0 g/dL LAB 4544-3([facility]) Hct VFr Bld Auto 43.3 39.0-51.0 % LAB 787-2([facility]) MCV RBC Auto 89.3 80.0-100.0 fL LAB 785-6([facility]) MCH RBC Qn Auto 30.5 26.0-34.0 p g LAB 786-4([facility]) MCHC RBC Auto-mCnc 34.2 30.5-36.0 g/dL LAB 91471-3([facility]) RDW RBC-Rto 12.5 11.5-15.0 % LAB 777-3([facility]) Platelet # Bld Auto 144 Low 150-400 k/uL LAB 38552-8([facility]) PMV Bld Auto 9.6 9.0-12.7 fL LAB 770-8([facility]) Neutrophils/leuk NFr Bld Auto 52.9 % LAB 751-8([facility]) Neutrophils # Bld Auto 2.77 1.45-7.50 k/uL LAB 736-9([facility]) Lymphocytes/leuk NFr Bld Auto 30.8 % LAB 731-0([facility]) Lymphocytes # Bld Auto 1.61 1.00-4.00 k/uL LAB 5905-5([facility]) Monocytes/leuk NFr Bld Auto 12.2 % LAB 742-7([facility]) Monocytes # Bld Auto 0.64 <0.87 k/uL LAB 713-8([facility]) Eosinophil/leuk NFr Bld Auto 3.1 % LAB 711-2([facility]) Eosinophil # Bld Auto 0.16 <0.46 k/uL LAB 706-2([facility]) Basophils/leuk NFr Bld Auto 0.8 % LAB 704-7([facility]) Basophils # Bld Auto 0.04 <0.11 k/uL LAB 78017-9([facility]) Imm Granulocytes/cheryl k NFr Bld Auto 0.2 % LAB 20287-6([facility]) Imm Granulocytes # Bld Auto <0.03 <0.10 k/uL LAB 56376-7([facility]) nRBC/100 WBC Bld-Rto 0.0 /100 WBC LAB 771-6([facility]) nRBC # Bld Auto <0.01 <0.01 k/u L LAB 00615-2([facility]) Differential method Bld Auto Performed By: #### [id number] # ### [facility] CLIA [id number] [address] [place] [address] CNPN Observed: 05/13/2024 12:00 AM Status: COMPLETED Source: [facility] Telephone ([employer]) ALISSA PICHARDO ([id number]) 1950 M Date Time Provider Department 05/13/24 SON RAMIREZ Subblime During your visit today, we recorded the following information about you: Zahra Brown RN 05/13/2024 8:25 AM Signed Patient's calling and states that patient has 6 month follow up scheduled with Heather on 05/15/2024. asking if provider wants patient to get labs done prior to appointment. If labs ordered asking for a call back. Please review and advise, MARIKA Proctor Julie, APRN.HA 05/13/2024 4:35 PM Signed Lab orders placed. Heather Marquez APRN.Zahra Madrid RN 05/13/2024 4:40 PM Signed Tatianna called and notified that lab orders have been placed. Voiced understanding. Zahra Brwon RN Allergies As of Date: 05/13/2024 Noted Allergy Reaction FARXIGA (DAPAGLIFLOZIN) 11/14/2023 2 - Rash CHLORHEXIDINE 04/06/2023 4 - Hives Date Reviewed: 04/29/2024 Reviewed by: Elinor Salvador LPN - Fully Assessed Reason for Visit: Lab Orders [1688] Primary Visit Diagnosis:Controlled type 2 diabetes mellitus without complication, without long-term current use of insulin (HCC) [E11.9] Order(s):COMPREHENSIVE METABOLIC PANEL [SQCMP] Order #: [id number] FUTURE HEMOGLOBIN A1C [PZKRB6F] Order #: [id number] FUTURE COMPLETE BLOOD COUNT AND DIFFERENTIAL [SQCBCDIF] Order #: [id number] FUTURE Prescriptions as of 05/13/2024 - clopidogrel (PLAVIX) 75 mg tablet TAKE 4 TABLETS FIRST DAY AND THEN 1 TABLET DAILY - carvedilol (COREG) 25 mg tablet Take 1 tablet by mouth two times a day with meals. - atorvastatin (LIPITOR) 40 mg tablet Take 1 tablet by mouth daily at bedtime. For cholesterol. - Omeprazole Magnesium (PRILOSEC OTC) 20 mg tablet Take 1 tablet by mouth once daily. - metFORMIN (GLUCOPHAGE) 500 mg tablet Take 1 tablet by mouth daily with breakfast. - valsartan (DIOVAN) 320 mg tablet Take 1 tablet by mouth once daily. - nitroglycerin sublingual (NITROSTAT) 0.4 mg SL tablet Dissolve 1 tablet under the tongue every 5 minutes as needed for chest pain. - Multivitamin capsule Take 1 capsule by mouth once daily. - Compression Knee Highs KNEE HIGH COMPRESSION STOCKINGS 30-40 MM. DX: EDEMA Problem List As Of Date 05/13/2024 Noted Resolved Cholelithiasis [K80.20] 07/31/2014 Abdominal pain, unspecified site [R10.9] 07/31/2014 Obesity [E66.9] 08/13/2014 HTN (hypertension) [I10] 08/13/2014 RAMOS (nonalcoholic steatohepatitis) [K75.81] 08/27/2014 Diabetes mellitus type II, controlled (HCC) [E1* Mild nonproliferative diabetic retinopathy of b*04/2020 Thrombocytopenia (HCC) [D69.6] 10/23/2020 10/17/2022 Colitis [K52.9] 03/29/2021 03/29/2021 Obesity, Class II, BMI 35-39.9 [E66.812] 10/17/2022 Systolic congestive heart failure (HCC) [I50.20]04/17/2023 NSTEMI (non-ST elevated myocardial infarction) *04/17/2023 CAD (coronary artery disease) [I25.10] 04/17/2023 Encounter Status:Closed by ZAHRA BROWN on 05/13/24 PROGRESS Observed: 04/29/2024 8:09 AM Status: COMPLETED Source: [facility] Author: ALISSA NANCE, ? Service: ? Author Type: Physician Type: Progress Notes Filed: 04/29/2024 08:19 Note Text: Subjective: This 73 year old male presents to clinic for diabetic foot check. Patient has no complaints. Does report recently trimming his left great toenail and the medial border broke off. Denies any pain. Patient -B/T/N in feet at this time. Patient -pain in legs when walking. No other pedal complaints at this time. No change in medications or medical history since last visit. PAIN EVALUATION No data found in the last 1 encounters. Hemoglobin A1C (%) Date Value 11/09/2023 6.3 04/17/2023 6.6 10/17/2022 6.3 04/14/2022 6.4 10/13/2021 6.6 04/16/2021 6.5 10/19/2020 6.7 04/13/2020 6.6 10/07/2019 6.4 03/29/2019 6.5 PCP: Son Ramirez MD PAST MEDICAL HISTORY Diagnosis Date CAD (coronary artery disease) Carpal tunnel syndrome on right s/p surgical correction CHF (congestive heart failure) ([facility]) 04/17/2023 EF 45% Chronic left shoulder pain 20+ years, ran over by a sow Diabetes mellitus type II, controlled ([facility]) Fatty liver 05/02/2022 on HTN (hypertension) Mild nonproliferative diabetic retinopathy of both eyes without macular edema associated with type 2 diabetes mellitus (HCC) 04/2020 Obesity S/P angioplasty with stent 03/2023 YUKI to obtuse marginal branch Thrombocytopenia ([facility]) Current Outpatient Medications Medication Sig clopidogrel (PLAVIX) 75 mg tablet TAKE 4 TABLETS FIRST DAY AND THEN 1 TABLET DAILY carvedilol (COREG) 25 mg tablet Take 1 tablet by mouth two times a day with meals. atorvastatin (LIPITOR) 40 mg tablet Take 1 tablet by mouth daily at bedtime. For cholesterol. Omeprazole Magnesium (PRILOSEC OTC) 20 mg tablet Take 1 tablet by mouth once daily. metFORMIN (GLUCOPHAGE) 500 mg tablet Take 1 tablet by mouth daily with breakfast. valsartan (DIOVAN) 320 mg tablet Take 1 tablet by mouth once daily. nitroglycerin sublingual (NITROSTAT) 0.4 mg SL tablet Dissolve 1 tablet under the tongue every 5 minutes as needed for chest pain. Multivitamin capsule Take 1 capsule by mouth once daily. Compression Knee Highs KNEE HIGH COMPRESSION STOCKINGS 30-40 MM. DX: EDEMA No current facility-administered medications for this visit. ALLERGIES Allergen Reactions Farxiga [Dapagliflo* Rash Chlorhexidine Hives PAST SURGICAL HISTORY Procedure Laterality Date CARPAL TUNNEL right COLONOSCOPY 2004, 2015 COLONOSCOPY FLX DX W/COLLJ SPEC WHEN PFRMD 03/29/2021 -normal biopsies, per DP repeat in 10 years LAPAROSCOPY REPAIR INCISIONAL HERNIA REDUCIBLE 06/19/2017 Hernia repair, umbilical/incisional [facility] - laparoscopic - [address] mesh LAPS SURG CHOLECYSTECTOMY W/CHOLANGIOGRAPHY 08/19/2014 attempted, failed IOC, fatty liver PAST SURGICAL HISTORY OF 04/30/2021 left shoulder arthroscopy, subacromial decompression, biceps tenotomy, arthroscopic rotator cuff repair, and lipoma excision FAMILY HISTORY Problem Relation Age of Onset No Known Problems Mother Diabetes Father Social History Tobacco Use Smoking status: Former Current packs/day: 0.00 Average packs/day: 0.5 packs/day for 20.0 years (10.0 ttl pk-yrs) Types: Cigarettes Start date: 07/31/1974 Quit date: 07/31/1994 Years since quittin.7 Smokeless tobacco: Former Vaping Use Vaping status: Never Used Substance Use Topics Alcohol use: Yes Alcohol/week: 1.0 standard drink of alcohol Types: 1 Cans of Beer (12oz) per week Comment: beer on weekend. Drug use: No REVIEW OF SYSTEMS GENERAL: Negative for Malaise, significant weight loss, fever RESPIRATORY: Negative for cough, wheezing and shortness of breath CARDIOVASCULAR: Negative for chest pain, leg swelling and palpitations GI: Negative for abdominal discomfort, blood in stools or black stools and change in bowel habits : Negative for dysuria, frequency and incontinence MUSCULOSKELETAL: Negative for joint pain or swelling, back pain, and muscle pain. SKIN: Negative for lesions, rash, and itching. HEMATOLOGY/LYMPHOLOGY Negative for prolonged bleeding, bruising easily, and swollen nodes. ENDOCRINE: Negative for cold or heat intolerance, polyuria, polydipsia and goiter. NEURO: negative The remainder of the review of systems is noncontributory. Objective: Patient presents to clinic ambulating in [facility] Constitutional: Pt is a well developed 73 year old male who is alert, oriented, cooperative and in no apparent distress. Eyes: Following during examination. No redness or drainage. Respiratory: RR normal and nonlabored. Even breathing. No evidence of distress. Psychology: Patient is engaged during conversation. Normal affect and mood. Does not appear depressed or anxious. Vasc: DP and PT pulses are faintly palpable bilateral. CFT is less than 5 seconds bilateral. Skin temperature is warm to warm proximal to distal bilateral. There is no edema or varicosities noted. Hair growth present. Neuro: Protective sensation is intact to the foot and toes when tested with the 5.07 SWM bilateral. Vibratory sensation is decreased at the hallux bilateral. + Significant neurological defecits. Derm: Inspection and palpation performed. Nails 1-5 b/l are normal in length and thickness. Left hallux lateral border has ingrowing tendency. Left hallux medial nail border has been cut via slant back. No infection present. Skin is of normal turgor and texture. Hyperkeratosis noted to not present. NO ulcerations, scars, verruca or other lesions noted. Maceration is noted to right 4th interspace. Ortho: Ankle joint DF is full with the knee extended and full with knee flexed. No pain or crepitus noted. STJ, MTJ ROM are full and free of pain or crepitus. Muscle strength is 5/5 for dorsiflexors, plantarflexors, inverters, everters. Digital deformities include none. Posterior heel spur is noted b/l. Without pain Assessment: (E11.42) Diabetic polyneuropathy associated with type 2 diabetes mellitus (HCC) (primary encounter diagnosis) (L60.0) Ingrowing toenail (R09.89) Diminished pulses in lower extremity Plan: 1. Patient was seen and evaluated. 2. Patient was instructed on the continued importance of diabetic foot care along with proper diet and keeping their blood sugar under control to prevent complications. Stressed the importance of avoiding barefoot walking, wearing good shoes and inspection of feet. Instructions given both oral and written. 3. Discussed ingrowing tendency of left hallux. Educated patient on proper trimming of the nail. Discussed possible procedure of left hallux. Will repeat pvr first. Past pvr in 2019 was normal. 4. Discussed posterior heel spur. Educated patient on shoes that avoid rubbing. Alissa Nance DPM PROGRESS Observed: 04/29/2024 8:05 AM Status: COMPLETED Source: [facility] HNO ID: [id number] Author: ELINOR SALVADOR LPN Service: ? Author Type: LICENSED NURSE Type: Progress Notes Filed: 04/29/2024 08:19 Note Text: AMB ROOMING INTAKE FLOWSHEET DATA Risk Screening Do you have concerns about personal safety or safety in the home?: No Patient presents with: Left Foot - Established Patient, Follow Up, Diabetic Foot Check Right Foot - Established Patient, Follow Up, Diabetic Foot Check Elinor Salvador LPN CNOV Observed: 04/29/2024 8:00 AM Status: COMPLETED Source: [facility] Office Visit (PODIWS) ALISSA PICHARDO ([id number]) 1950 M Date Time Provider Department 04/29/24 8:00 AM ALISSA NANCE PODIWS During your visit today, we recorded the following information about you: Elinor Salvador LPN 04/29/2024 8:19 AM Signed AMB ROOMING INTAKE FLOWSHEET DATA Risk Screening Do you have concerns about personal safety or safety in the home?: No Patient presents with: Left Foot - Established Patient, Follow Up, Diabetic Foot Check Right Foot - Established Patient, Follow Up, Diabetic Foot Check Elinor Salvador LPN Alissa Nance 04/29/2024 8:19 AM Signed Subjective: This 73 year old male presents to clinic for diabetic foot check. Patient has no complaints. Does report recently trimming his left great toenail and the medial border broke off. Denies any pain. Patient -B/T/N in feet at this time. Patient -pain in legs when walking. No other pedal complaints at this time. No change in medications or medical history since last visit. PAIN EVALUATION No data found in the last 1 encounters. Hemoglobin A1C (%) Date Value 11/09/2023 6.3 04/17/2023 6.6 10/17/2022 6.3 04/14/2022 6.4 10/13/2021 6.6 04/16/2021 6.5 10/19/2020 6.7 04/13/2020 6.6 10/07/2019 6.4 03/29/2019 6.5 PCP: Son Ramirez MD PAST MEDICAL HISTORY Diagnosis Date CAD (coronary artery disease) Carpal tunnel syndrome on right s/p surgical correction CHF (congestive heart failure) ([facility]) 04/17/2023 EF 45% Chronic left shoulder pain 20+ years, ran over by a sow Diabetes mellitus type II, controlled ([facility]) Fatty liver 05/02/2022 on HTN (hypertension) Mild nonproliferative diabetic retinopathy of both eyes without macular edema associated with type 2 diabetes mellitus (HCC) 04/2020 Obesity S/P angioplasty with stent 03/2023 YUKI to obtuse marginal branch Thrombocytopenia ([facility]) Current Outpatient Medications Medication Sig clopidogrel (PLAVIX) 75 mg tablet TAKE 4 TABLETS FIRST DAY AND THEN 1 TABLET DAILY carvedilol (COREG) 25 mg tablet Take 1 tablet by mouth two times a day with meals. atorvastatin (LIPITOR) 40 mg tablet Take 1 tablet by mouth daily at bedtime. For cholesterol. Omeprazole Magnesium (PRILOSEC OTC) 20 mg tablet Take 1 tablet by mouth once daily. metFORMIN (GLUCOPHAGE) 500 mg tablet Take 1 tablet by mouth daily with breakfast. valsartan (DIOVAN) 320 mg tablet Take 1 tablet by mouth once daily. nitroglycerin sublingual (NITROSTAT) 0.4 mg SL tablet Dissolve 1 tablet under the tongue every 5 minutes as needed for chest pain. Multivitamin capsule Take 1 capsule by mouth once daily. Compression Knee Highs KNEE HIGH COMPRESSION STOCKINGS 30-40 MM. DX: EDEMA No current facility-administered medications for this visit. ALLERGIES Allergen Reactions Farxiga [Dapagliflo* Rash Chlorhexidine Hives PAST SURGICAL HISTORY Procedure Laterality Date CARPAL TUNNEL right COLONOSCOPY 2004, 2015 COLONOSCOPY FLX DX W/COLLJ SPEC WHEN PFRMD 03/29/2021 -normal biopsies, per DP repeat in 10 years LAPAROSCOPY REPAIR INCISIONAL HERNIA REDUCIBLE 06/19/2017 Hernia repair, umbilical/incisional WC - laparoscopic - [address] mesh LAPS SURG CHOLECYSTECTOMY W/CHOLANGIOGRAPHY 08/19/2014 attempted, failed IOC, fatty liver PAST SURGICAL HISTORY OF 04/30/2021 left shoulder arthroscopy, subacromial decompression, biceps tenotomy, arthroscopic rotator cuff repair, and lipoma excision FAMILY HISTORY Problem Relation Age of Onset No Known Problems Mother Diabetes Father Social History Tobacco Use Smoking status: Former Current packs/day: 0.00 Average packs/day: 0.5 packs/day for 20.0 years (10.0 ttl pk-yrs) Types: Cigarettes Start date: 07/31/1974 Quit date: 07/31/1994 Years since quittin.7 Smokeless tobacco: Former Vaping Use Vaping status: Never Used Substance Use Topics Alcohol use: Yes Alcohol/week: 1.0 standard drink of alcohol Types: 1 Cans of Beer (12oz) per week Comment: beer on weekend. Drug use: No REVIEW OF SYSTEMS GENERAL: Negative for Malaise, significant weight loss, fever RESPIRATORY: Negative for cough, wheezing and shortness of breath CARDIOVASCULAR: Negative for chest pain, leg swelling and palpitations GI: Negative for abdominal discomfort, blood in stools or black stools and change in bowel habits : Negative for dysuria, frequency and incontinence MUSCULOSKELETAL: Negative for joint pain or swelling, back pain, and muscle pain. SKIN: Negative for lesions, rash, and itching. HEMATOLOGY/LYMPHOLOGY Negative for prolonged bleeding, bruising easily, and swollen nodes. ENDOCRINE: Negative for cold or heat intolerance, polyuria, polydipsia and goiter. NEURO: negative The remainder of the review of systems is noncontributory. Objective: Patient presents to clinic ambulating in sneakers Constitutional: Pt is a well developed 73 year old male who is alert, oriented, cooperative and in no apparent distress. Eyes: Following during examination. No redness or drainage. Respiratory: RR normal and nonlabored. Even breathing. No evidence of distress. Psychology: Patient is engaged during conversation. Normal affect and mood. Does not appear depressed or anxious. Vasc: DP and PT pulses are faintly palpable bilateral. CFT is less than 5 seconds bilateral. Skin temperature is warm to warm proximal to distal bilateral. There is no edema or varicosities noted. Hair growth present. Neuro: Protective sensation is intact to the foot and toes when tested with the 5.07 SWM bilateral. Vibratory sensation is decreased at the hallux bilateral. + Significant neurological defecits. Derm: Inspection and palpation performed. Nails 1-5 b/l are normal in length and thickness. Left hallux lateral border has ingrowing tendency. Left hallux medial nail border has been cut via slant back. No infection present. Skin is of normal turgor and texture. Hyperkeratosis noted to not present. NO ulcerations, scars, verruca or other lesions noted. Maceration is noted to right 4th interspace. Ortho: Ankle joint DF is full with the knee extended and full with knee flexed. No pain or crepitus noted. STJ, MTJ ROM are full and free of pain or crepitus. Muscle strength is 5/5 for dorsiflexors, plantarflexors, inverters, everters. Digital deformities include none. Posterior heel spur is noted b/l. Without pain Assessment: (E11.42) Diabetic polyneuropathy associated with type 2 diabetes mellitus (HCC) (primary encounter diagnosis) (L60.0) Ingrowing toenail (R09.89) Diminished pulses in lower extremity Plan: 1. Patient was seen and evaluated. 2. Patient was instructed on the continued importance of diabetic foot care along with proper diet and keeping their blood sugar under control to prevent complications. Stressed the importance of avoiding barefoot walking, wearing good shoes and inspection of feet. Instructions given both oral and written. 3. Discussed ingrowing tendency of left hallux. Educated patient on proper trimming of the nail. Discussed possible procedure of left hallux. Will repeat pvr first. Past pvr in 2019 was normal. 4. Discussed posterior heel spur. Educated patient on shoes that avoid rubbing. Alissa Nance DPM Alissa Nance 04/29/2024 8:16 AM Signed Diabetes Foot Care Instructions When you have diabetes, proper foot care is very important. Poor foot care may lead to amputation of a foot or leg. As a person with diabetes, you are more vulnerable to foot problems, because diabetes can damage your nerves and reduce blood flow to your feet. Here are some diabetes foot care tips to follow: Wash and Dry Your Feet Daily Use mild soaps Use warm water Pat your skin dry; do not rub. Thoroughly dry your feet. After washing, use lotion on your feet to prevent cracking. Do not put lotion between your toes. Examine Your Feet Each Day Check the tops and bottoms of your feet. Have someone else look at your feet if you cannot see them. Check for dry, cracked skin. Look for blisters, cuts, scratches, or other sores. Check for redness, increased warmth, or tenderness when touching any area of your feet. Check for ingrown toenails, corns, and calluses. If you get a blister or sore from your shoes, do not pop it. Apply a bandage and wear a different pair of shoes. Take Care of Your Toenails Cut toenails after bathing, when they are soft. Cut toenails straight across and smooth with a nail file. Avoid cutting into the corners of toes. Do not cut cuticles. If you have neuropathy (or decreased sensation in your feet) a internal corrosion specialist should always cut your toenails. Be Careful When Exercising Walk and exercise in comfortable shoes. Do not exercise when you have open sores on your feet. Protect Your Feet With Shoes and Socks Never go barefoot. Always protect your feet by wearing shoes or hard-soled slippers or footwear. Avoid shoes with high heels and pointed toes. Avoid shoes that expose your toes or heels (such as open-toed shoes or sandals). These types of shoes increase your risk for injury and potential infections. Try on new footwear with the type of socks you usually wear. Do not wear new shoes for more than an hour at a time. Change your socks daily. Look and feel inside your shoes before putting them on to make sure there are no foreign objects or rough areas. Avoid tight socks. Wear natural-fiber socks (cotton, wool, or a cotton-wool blend). Wear special shoes if your health care provider recommends them. Wear shoes/boots that will protect your feet from various weather conditions (cold, moisture, etc.). Make sure your shoes fit properly. If you have neuropathy (nerve damage), you may not notice that your shoes are too tight. Perform the footwear test described below. Footwear Test Use this simple test to see if your shoes fit correctly: Stand on a piece of paper. (Make sure you are standing and not sitting, because your foot changes shape when you stand.) Trace the outline of your foot. Trace the outline of your shoe. Compare the tracings: Is the shoe too narrow? Is your foot crammed into the shoe? The shoe should be at least 1/2 inch longer than your longest toe and as wide as your foot. Proper Shoe Choices The following types of shoes are best for people with diabetes Closed toes and heels Leather uppers without a seam inside At least 1/2 inch extra space at the end of your longest toe Inside of shoe should be soft with no rough areas Outer sole should be made of stiff material Shoes should be at least as wide as your feet Tips for Foot Care in Diabetes Don't wait to treat a minor foot problem if you have diabetes. Follow your health care provider's guidelines and first aid guidelines. Report foot injuries and infections to your health care provider immediately. Check water temperature with your elbow, not your foot. Do not use a heating pad on your feet. Do not cross your legs. Do not self-treat your corns, calluses, or other foot problems. Go to your health care provider or internal corrosion specialist to treat these conditions. Referring Provider: ALISSA NANCE [[id number]] Allergies As of Date: 04/29/2024 Noted Allergy Reaction FARXIGA (DAPAGLIFLOZIN) 11/14/2023 2 - Rash CHLORHEXIDINE 04/06/2023 4 - Hives Date Reviewed: 04/29/2024 Reviewed by: Elinor Salvador LPN - Fully Assessed Reason for Visit: Established Patient [175] Follow Up [171] Diabetic Foot Check [762] Established Patient [175] Follow Up [171] Diabetic Foot Check [762] Primary Visit Diagnosis:Diabetic polyneuropathy associated with type 2 diabetes mellitus (HCC) [E11.42] Other Visit Diagnoses:Ingrowing toenail [L60.0] Diminished pulses in lower extremity [R09.89] Order(s):[facility] [[id number]] Order #: [id number] FUTURE Prescriptions as of 04/29/2024 - clopidogrel (PLAVIX) 75 mg tablet TAKE 4 TABLETS FIRST DAY AND THEN 1 TABLET DAILY - carvedilol (COREG) 25 mg tablet Take 1 tablet by mouth two times a day with meals. - atorvastatin (LIPITOR) 40 mg tablet Take 1 tablet by mouth daily at bedtime. For cholesterol. - Omeprazole Magnesium (PRILOSEC OTC) 20 mg tablet Take 1 tablet by mouth once daily. - metFORMIN (GLUCOPHAGE) 500 mg tablet Take 1 tablet by mouth daily with breakfast. - valsartan (DIOVAN) 320 mg tablet Take 1 tablet by mouth once daily. - nitroglycerin sublingual (NITROSTAT) 0.4 mg SL tablet Dissolve 1 tablet under the tongue every 5 minutes as needed for chest pain. - Multivitamin capsule Take 1 capsule by mouth once daily. - Compression Knee Highs KNEE HIGH COMPRESSION STOCKINGS 30-40 MM. DX: EDEMA Problem List As Of Date 04/29/2024 Noted Resolved Cholelithiasis [K80.20] 07/31/2014 Abdominal pain, unspecified site [R10.9] 07/31/2014 Obesity [E66.9] 08/13/2014 HTN (hypertension) [I10] 08/13/2014 RAMOS (nonalcoholic steatohepatitis) [K75.81] 08/27/2014 Diabetes mellitus type II, controlled (HCC) [E1* Mild nonproliferative diabetic retinopathy of b*04/2020 Thrombocytopenia (HCC) [D69.6] 10/23/2020 10/17/2022 Colitis [K52.9] 03/29/2021 03/29/2021 Obesity, Class II, BMI 35-39.9 [E66.812] 10/17/2022 Systolic congestive heart failure (HCC) [I50.20]04/17/2023 NSTEMI (non-ST elevated myocardial infarction) *04/17/2023 CAD (coronary artery disease) [I25.10] 04/17/2023 Other instructions from your clinician: Diabetes Foot Care Instructions When you have diabetes, proper foot care is very important. Poor foot care may lead to amputation of a foot or leg. As a person with diabetes, you are more vulnerable to foot problems, because diabetes can damage your nerves and reduce blood flow to your feet. Here are some diabetes foot care tips to follow: Wash and Dry Your Feet Daily Use mild soaps Use warm water Pat your skin dry; do not rub. Thoroughly dry your feet. After washing, use lotion on your feet to prevent cracking. Do not put lotion between your toes. Examine Your Feet Each Day Check the tops and bottoms of your feet. Have someone else look at your feet if you cannot see them. Check for dry, cracked skin. Look for blisters, cuts, scratches, or other sores. Check for redness, increased warmth, or tenderness when touching any area of your feet. Check for ingrown toenails, corns, and calluses. If you get a blister or sore from your shoes, do not pop it. Apply a bandage and wear a different pair of shoes. Take Care of Your Toenails Cut toenails after bathing, when they are soft. Cut toenails straight across and smooth with a nail file. Avoid cutting into the corners of toes. Do not cut cuticles. If you have neuropathy (or decreased sensation in your feet) a internal corrosion specialist should always cut your toenails. Be Careful When Exercising Walk and exercise in comfortable shoes. Do not exercise when you have open sores on your feet. Protect Your Feet With Shoes and Socks Never go barefoot. Always protect your feet by wearing shoes or hard-soled slippers or footwear. Avoid shoes with high heels and pointed toes. Avoid shoes that expose your toes or heels (such as open-toed shoes or sandals). These types of shoes increase your risk for injury and potential infections. Try on new footwear with the type of socks you usually wear. Do not wear new shoes for more than an hour at a time. Change your socks daily. Look and feel inside your shoes before putting them on to make sure there are no foreign objects or rough areas. Avoid tight socks. Wear natural-fiber socks (cotton, wool, or a cotton-wool blend). Wear special shoes if your health care provider recommends them. Wear shoes/boots that will protect your feet from various weather conditions (cold, moisture, etc.). Make sure your shoes fit properly. If you have neuropathy (nerve damage), you may not notice that your shoes are too tight. Perform the footwear test described below. Footwear Test Use this simple test to see if your shoes fit correctly: Stand on a piece of paper. (Make sure you are standing and not sitting, because your foot changes shape when you stand.) Trace the outline of your foot. Trace the outline of your shoe. Compare the tracings: Is the shoe too narrow? Is your foot crammed into the shoe? The shoe should be at least 1/2 inch longer than your longest toe and as wide as your foot. Proper Shoe Choices The following types of shoes are best for people with diabetes Closed toes and heels Leather uppers without a seam inside At least 1/2 inch extra space at the end of your longest toe Inside of shoe should be soft with no rough areas Outer sole should be made of stiff material Shoes should be at least as wide as your feet Tips for Foot Care in Diabetes Don't wait to treat a minor foot problem if you have diabetes. Follow your health care provider's guidelines and first aid guidelines. Report foot injuries and infections to your health care provider immediately. Check water temperature with your elbow, not your foot. Do not use a heating pad on your feet. Do not cross your legs. Do not self-treat your corns, calluses, or other foot problems. Go to your health care provider or internal corrosion specialist to treat these conditions. Medications Discontinued During This Encounter Prescriptions - ticagrelor (BRILINTA) 90 mg tablet (Discontinued) Take 1 tablet by mouth two times a day. Encounter Status:Closed by ALISSA NANCE DPM on 04/29/24 ALLERGIES DATE TYPE / CODE NAME / CODE REACTION SEVERITY SOURCE 11/14/2023 DRUG INGREDI/[id number](S NOMED CT) DAPAGLIFLOZIN RASH [facility] 04/06/2023 DRUG INGREDI/[id number](S NOMED CT) CHLORHEXIDINE HIVES Low [facility] ENCOUNTERS ADMIT/DISCHARGE ACCOUNT NUMBER ADMITTING ENCOUNTER CLASS LOC ATION SOURCE 11/13/2024/ 5 [id number] Ambulatory [facility] 11/12/2024/ 5 [id number] Ambulatory [facility]:WOL2 [facility] 06/05/2024/ 5 [id number] Ambulatory [facility] 05/15/2024/ 4 [id number] [facility] 4 [id number] Ambulatory [facility] Hospital[facility] ing:WOL[address] [place] [address] 04/29/2024/ 4 [id number] [facility] PAYERS ENCOUNTER GUARANTOR PAYER SUBSCRIBER SOURCE 11/13/2024 Primary Insuranc e:MEDICARE A AND BPolicy Number: [id number] Date:0252-17-47Znly Name:Abena WALKER: [id number] [facility] [place] [address] [facility] 11/13/2024 Secondary Insura nce:[facility] MEDICARE SUPPLEMENTPolicy Number: [id number] Date:8893-05-92Aejc Name:Shahnaz WALKER: [id number] [facility] [place] [address] [facility] 11/12/2024 Primary Insuranc e:MEDICARE A AND BPolicy Number: [id number] Date:1921-15-53Kxvq Name:Abena WALKER: [id number] Billie ESC[facility]O [facility] [address] [facility] 11/12/2024 Secondary Insura nce:[employer] MEDICARE SUPPLEMENTPolicy Number: [id number] Date:3243-23-40Daeh Name:Shahnaz ALISSA K ZULYB: [id number] [place] [address] [facility] 06/05/2024 Primary Insuranc e:MEDICARE A AND BPolicy Number: [id number] Date:8015-93-62Cynw Name:Abena ALISSA K ZULYB: [id number] [place] [address] [facility] 06/05/2024 Secondary Insura nce:[employer] MEDICARE SUPPLEMENTPolicy Number: [id number] Date:2102-94-82Jchw Name:Shahnaz ALISSA K AARON: [id number] [place] [address] [facility] 05/15/2024 Primary Insuranc e:MEDICARE A AND BPolicy Number: [id number] Date:7782-72-66Kjyw Name:Abena ALISSA K AARON: [id number] [place] [address] [facility] 05/15/2024 Secondary Insura nce:[employer] MEDICARE SUPPLEMENTPolicy Number: [id number] Date:6707-14-03Gfbd Name:Shahnaz WALKER: [id number] [place] [address] [facility] 05/14/2024 Primary Insuranc e:MEDICARE A AND BPolicy Number: [id number] Date:0753-87-58Sthk Name:Abena ALISSA Nadege AARON: [id number] [place] [address] [facility] 05/14/2024 Secondary Insura nce:[employer] MEDICARE SUPPLEMENTPolicy Number: [id number] Date:7381-24-50Iycg Name:Shahnaz WALKER: [id number] [place] [address] [facility] 04/29/2024 Primary Insuranc e:MEDICARE A AND BPolicy Number: [id number] Date:2159-24-31Ntzo Name:Abena WALKER: [id number] [place] [address] [facility] 04/29/2024 Secondary Insura nce:[employer] MEDICARE SUPPLEMENTPolicy Number: [id number] Date:2745-52-96Hdtt Name:Shahnaz WALKER: [id number] [place] [address] [facility]
--- OUTSIDE RECORDS SUMMARY | 2024-11-13 07:02 | XMS RPT_ITS ---
Author Name Auto Generated Organization OH[facility] Care Team Providers Care Embroidery Finisher Name Role Phone MADDIELOGAR, HEATHER Referring Unavailable [...] DATE TYPE CONDITION / CODE ATTENDING STATUS [facility] 11/13/2024 Active Gastroesophageal reflux disease, unspecified whether esophagitis present / K21.9(ICD-10) SON RAMIREZ Active [facility] 11/13/2024 Active S/P angioplasty with stent / Z95.820(ICD-10) SON RAMIREZ Active [facility] 04/17/2023 Active Coronary artery disease involving ute heart without angina pectoris, unspecified vessel or lesion type / I25.10(ICD-10) SON RAMIREZ Active [facility] 04/17/2023 Active Systolic congest thompson heart failure, unspecified HF chronicity (HCC) / I50.20(ICD-10) SON RAMIREZ Active [facility] 10/17/2022 Active Obesity, Class I I, BMI 35-39.9 / E66.812(ICD-10) SON RAMIREZ Active [facility] 08/27/2014 Active RAMOS (nonalcohol ic steatohepatitis) / K75.81(ICD-10) SON RAMIREZ Active [facility] 11/13/2024 Active Diabetic polyneu ropathy associated with type 2 diabetes mellitus (HCC) / E11.42(ICD-10) SON RAMIREZ Active [facility] 05/20/2020 Active Mild nonprolifer ative diabetic retinopathy of both eyes without macular edema associated with type 2 diabetes mellitus (HCC) / E11.3293(ICD-10) NA Active [facility] 06/28/2017 Active Controlled type 2 diabetes mellitus without complication, without long-term current use of insulin (HCC) / E11.9(ICD-10) NA Active [facility] 08/13/2014 Active Primary hyperten christopher / I10(ICD-10) KATHERINE Active [facility] 11/12/2024 Active Hyperlipidemia, unspecified hyperlipidemia type / E78.5(ICD-10) KATHERINE Active [facility] 11/12/2024 Active Thrombocytopenia / D69.6(ICD-10) KATHERINE Active [facility] 06/05/2024 Active Diminished pulse s in lower extremity / R09.89(ICD-10) KATHERINE Active [facility] 05/15/2024 Active Encounter for immunization / Z23(ICD-10) PODLOGARHEATHER Active [facility] 05/15/2024 Active Thrombocytopenia (HCC) / D69.6(ICD-10) PODLOGARHEATHER Active [facility] 05/15/2024 Active S/P arterial jose nt / Z95.9(ICD-10) PODLOGARHEATHER Active [facility] PROCEDURES No Procedure Records Found RESULTS PROGRESS Observed: 02/06/2025 10:22 AM Status: COMPLETED Source: [facility] HNO ID: [id number] Author: GUERLINE EDWARDS MA Service: ? Author Type: Mosaic Tiler Type: Progress Notes Filed: 02/06/2025 10:24 Note [...] Observed: 02/06/2025 12:00 AM Status: COMPLETED Source: [facility] Patient Outreach (NETNAV) ALISSA PICHARDO ([id number]) 1950 M Date Time Provider Department 02/06/25 [...] Observed: 11/13/2024 7:35 AM Status: COMPLETED Source: [facility] ID: [id number] Author: SON RAMIREZ MD Service: ? Author Type: Physician Type: Progress Notes Filed: 11/13/2024 07:52 Note Text: Chief Complaint Patient presents with: 6 Month Exam Recording using ambient [employer] software for draft documentation of the visit was discussed with the patient/authorized senior outside sales representative; all questions welcomed and answered. Patient/authorized senior outside sales representative agreed to proceed HPI Alissa Pichardo [...] showed no retinopathy. - Monitors feet daily; turnstile attendant recommended iodine for moisture between toes. Coronary Artery Disease: - Last cardiology visit at [facility] in May; next appointment scheduled for November. [...] s/p surgical correction CHF (congestive heart failure) ([facility]) 04/17/2023 EF 45% Chronic left shoulder pain 20+ years, ran over by a sow Diabetes mellitus type II, controlled ([facility]) Fatty liver 05/02/2022 on GERD (gastroesophageal reflux [...] INCISIONAL HERNIA REDUCIBLE 06/19/2017 Hernia repair, umbilical/incisional [facility] - laparoscopic - 12 x 8 Ventrio [...] Lymph 1.00 - 4.00 k/uL 1.61 1.88 Colquitt% % 12.2 11.2 Abs Colquitt <0.87 k/uL 0.64 0.65 Eosin% % 3.1 [...] complication, without long-term current use of insulin ([facility]) (E11.9) 2. Diabetic polyneuropathy associated with type [...] to continue daily foot inspections; follow-up with turnstile attendant Dr. Nance scheduled annually in April. - Urinalysis revealed proteinuria; continue valsartan therapy to manage. 3. Coronary artery disease involving ute heart without angina pectoris, unspecified vessel or lesion type (I25.10) 4. S/P angioplasty with stent (Z95.820) 5. Systolic congestive heart failure, unspecified HF chronicity ([facility]) (I50.20) - No new episodes of chest [...] of increased Lipitor dosage. - Follow-up with technology education instructor scheduled for late November. 6. Primary hypertension [...] Observed: 11/13/2024 7:20 AM Status: COMPLETED Source: [facility] ([id number]) 1950 M Date Time Provider Department 11/13/24 7:20 AM SON RAMIREZWS During your visit today, we recorded the following information about you: Pulse Blood pressure Weight Height 72/minute 130/62 114.4 kg 1.753 m Son Ramirez MD 11/13/2024 7:52 AM Signed Chief Complaint Patient presents with: 6 Month Exam Recording using [email or web address] software for draft documentation of the visit was discussed with the patient/authorized senior outside sales representative; all questions welcomed and answered. Patient/authorized senior outside sales representative agreed to proceed HPI Alissa Pichardo [...] showed no retinopathy. - Monitors feet daily; turnstile attendant recommended iodine for moisture between toes. Coronary Artery Disease: - Last cardiology visit at [facility] in May; next appointment scheduled for November. [...] s/p surgical correction CHF (congestive heart failure) ([facility]) 04/17/2023 EF 45% Chronic left shoulder pain 20+ years, ran over by a sow Diabetes mellitus type II, controlled ([facility]) Fatty liver 05/02/2022 on GERD (gastroesophageal reflux disease) HTN (hypertension) Mild nonproliferative diabetic retinopathy of both eyes without macular edema associated with type 2 diabetes mellitus ([facility]) 04/2020 Obesity S/P angioplasty with stent 03/2023 [...] Lymph 1.00 - 4.00 k/uL 1.61 1.88 Colquitt% % 12.2 11.2 Abs [place]itt <0.87 k/uL 0.64 0.65 Eosin% % 3.1 [...] to continue daily foot inspections; follow-up with turnstile attendant Dr. Nance scheduled annually in April. - Urinalysis revealed proteinuria; continue valsartan therapy to manage. 3. Coronary artery disease involving ute heart without angina pectoris, unspecified vessel or [...] of increased Lipitor dosage. - Follow-up with technology education instructor scheduled for late November. 6. Primary hypertension [...] mellitus (HCC) [E11.42] Coronary artery disease involving ute heart without angina pectoris, unspecified vessel or [...] 1 LIPID PANEL, FASTING [SQLIPB] Order #: [id number] FUTURE COMPREHENSIVE METABOLIC PANEL [SQCMP] Order #: [id number] FUTURE Prescriptions as of 11/13/2024 - carvedilol [...] for Encounter Date Provider Department Center 11/13/2024 [id number] RAMIREZ*THAOPKETAN [facility] Encounter Status:Closed by SON RAMIREZ on 11/13/24 ALBUMIN/CREATININE RATIO, URINE Collect ed: 11/12/2024 7:12 AM Status: F Source: [facility] Order Comment: Specimen Type : URINE SPECIMEN Ordering Facility: [facility] Address: [address] [place] [address] TYPE CODE TESTS RESULT OUT OF RANGE REFERENCE UNITS LAB 2161-8(LOINC) Creat Ur-mCnc 135.3 20.0-300.0 m g/dL LAB 86676-7(LOINC ) Microalbumin Ur-mCnc 117.3 mg/L LAB 9318-7(LOINC) [...] 3(1), 1-150. Performed By: #### UACR #### [facility] CLIA [id number] [address] [place] [address] [place] CBC W AUTO DIFF BLD Collected: 11/12/2024 7:[address] atus: F Source: [facility] Order Comment: Specimen Type : BLOOD SPECIMEN Ordering Facility: [facility] Address: [address] [place] [address] TYPE CODE TESTS RESULT OUT OF RANGE REFERENCE UNITS LAB 6690-2(LOINC) WBC # Bld Auto 5.78 3.70-11.00 k/uL LAB 789-8(LOINC) RBC # Bld Auto 4.93 4.20-6.00 m/ uL LAB 718-7([facility]) Hgb Bld-mCnc 15.1 13.0-17.0 g/dL LAB 4544-3([facility]) Hct VFr Bld Auto 43.3 39.0-51.0 % LAB 787-2([facility]) MCV RBC Auto 87.8 80.0-100.0 fL LAB 785-6([facility]) MCH RBC Qn Auto 30.6 26.0-34.0 p g LAB 786-4([facility]) MCHC RBC Auto-mCnc 34.9 30.5-36.0 g/dL LAB 89742-7([facility]) RDW RBC-Rto 12.3 11.5-15.0 % LAB 777-3([facility]) Platelet # Bld Auto 159 150-400 k/uL LAB 94112-5([facility]) PMV Bld Auto 9.8 9.0-12.7 fL LAB 770-8([facility]) Neutrophils/leuk NFr Bld Auto 52.8 % LAB 751-8([facility]) Neutrophils # Bld Auto 3.05 1.45-7.50 k/uL LAB 736-9([facility]) Lymphocytes/leuk NFr Bld Auto 32.5 % LAB 731-0([facility]) Lymphocytes # Bld Auto 1.88 1.00-4.00 k/uL LAB 5905-5([facility]) Monocytes/leuk NFr Bld Auto 11.2 % LAB 742-7([facility]) Monocytes # Bld Auto 0.65 <0.87 k/uL LAB 713-8([facility]) Eosinophil/leuk NFr Bld Auto 2.6 % LAB 711-2([facility]) Eosinophil # Bld Auto 0.15 <0.46 k/uL LAB 706-2([facility]) Basophils/leuk NFr Bld Auto 0.7 % LAB 704-7([facility]) Basophils # Bld Auto 0.04 <0.11 k/uL LAB 75540-9([facility]) Imm Granulocytes/cheryl k NFr Bld Auto 0.2 % LAB 78026-7([facility]) Imm Granulocytes # Bld Auto <0.03 <0.10 k/uL LAB 59013-4([facility]) nRBC/100 WBC Bld-Rto 0.0 /100 WBC LAB 771-6([facility]) nRBC # Bld Auto <0.01 <0.01 k/u L LAB 77564-1([facility]) Differential method Bld Auto Performed By: #### 13377-1 # ### [facility] CLIA [id number] [address] [place] [address] [place] LIPID 1996 PNL SERPL Collected: 025 7:09 AM Status: F Source: [facility] Order Comment: Specimen Type : BLOOD SPECIMEN Ordering Facility: [facility] Address: [address] [place] [address] TYPE CODE TESTS RESULT OUT OF RANGE REFERENCE UNITS LAB 3-3([facility]) Cholest SerPl-mCnc 130 <200 mg/dL Result Comment: <200 mg/dL, Desirable 200-239 mg/dL, Borderline high >239 mg/dL, High LAB 2571-8([facility]) Trigl SerPl-mCnc 71 <150 mg/dL Result Comment: <150 mg/dL, Normal 150-199 mg/dL, Borderline high 200-499 mg/dL, High >499 mg/dL, Very high LAB 5-9([facility]) HDLc SerPl-mCnc 37 Low >39 mg/dL Result Comment: 40-59 mg/dL, Acceptable >59 mg/dL, High: Negative risk factor for coronary heart disease <40 mg/dL, Low: Positive risk factor for coronary heart disease LAB 2088-1([facility]) LDLc SerPl-mCnc 79 <100 mg/dL Result Comment: <100 mg/dL, Optimal 100-129 mg/dL, Near optimal/above optimal 130-159 mg/dL, Borderline high 160-189 mg/dL, High >189 mg/dL, Very high Secondary prevention optimal LDL Cholesterol levels are recommended to be <70 mg/dL LDL cholesterol is calculated using the Olguin-NIH equation. LAB 43069-8(LOINC) NonHDLc SerPl-mCnc 93 <130 mg/dL Result Comment: <130 mg/dL, Optimal 130-159 mg/dL, Near optimal/above optimal 160-189 mg/dL, Borderline high 190-219 mg/dL, High >219 mg/dL, Very high Secondary prevention optimal non HDL Cholesterol levels are recommended to be <100 mg/dL LAB 96722-9(LOINC) VLDLc SerPl Calc-mCnc 11 <30 mg/dL LAB 9830-1(LOINC) Cholest/HDLc SerPl 3.51 <5.10 LAB 78506-8(LOINC) LDLc/HDLc SerPl 2.14 <2.54 Result Comment: Reference: 1. National Cholesterol Education Program ATP III Guideline At-A-Glance Quick Desk Reference: National Heart, Lung, and Blood [place]. National Institutes of Health. 2001: NIH Publication No. 01-3305. 2. An International Atherosclerosis Society position paper: global recommendations for the management of dyslipidemia: executive summary, Atherosclerosis. 2014: 232(2):410-413. LAB FT FASTING TIME 12 hrs Performed By: #### 53008-8 # ### [facility] CLIA [id number] [address] [place] [address] OF [facility] CLIA [id number] [address] [place] [address] DEPRECATED HGB A1C BLD Collected: 11/12 7:09 AM Status: F Source: [facility] Order Comment: Specimen Type : BLOOD SPECIMEN Ordering Facility: [facility] Address: [address] [place] [address] TYPE CODE TESTS RESULT OUT OF RANGE REFERENCE UNITS LAB 4548-4([facility]) HbA1c MFr Bld 6.4 High 4.3-5.6 % Result Comment: [place] Vesna betes Association guidelines indicate that patients with HgbA1c in the range 5.7-6.4% are at increased risk for development of diabetes, and intervention by lifestyle modification may be beneficial. HgbA1c greater or equal to 6.5% is considered diagnostic of diabetes. LAB 38516-4(LOINC) Est. average glucose Bld gHb Est-mCnc 137 mg/dL Result Comment: eAG: (Estima baudilio average glucose) is a calculated value from HgbA1c and is senior outside sales representative of the average blood glucose level in the last 2-3 month period. Performed By: #### 56490-6 # ### [facility] CLIA [id number] [address] [place] [address] [place] [address] [place] COMP METAB 2000 PNL SERPL Collected: 7:09 AM Status: F Source: [facility] Order Comment: Specimen Type : BLOOD SPECIMEN Ordering Facility: [facility] Address: [address] [place] [address] TYPE CODE TESTS RESULT OUT OF RANGE REFERENCE UNITS LAB 2885-2(LOINC) Prot SerPl-mCnc 6.0 Low 6.3-8.0 g/dL LAB 1751-7(LOINC) Albumin SerPl-mCnc 3.9 3.9-4.9 g/dL LAB 96266-8(LOINC) Calcium SerPl-mCnc 8.5 8.5-10.2 mg/dL LAB 1975-2(LOINC) Bilirub SerPl-mCnc 0.9 0.2-1.3 mg/dL LAB 6768-6(LOINC) ALP SerPl-cCnc 102 38-113 U/L LAB 1920-8(LOINC) AST SerPl-cCnc 15 14-40 U/L LAB 1742-6(LOINC) ALT SerPl-cCnc 17 10-54 U/L LAB 2345-7(LOINC) Glucose SerPl-mCnc 136 High 74-99 mg/dL Result Comment: The [place] Diabetes Association (ADA) provides guidance for cutoff [...] Standards of Medical Care in Diabetes 2016, [place] Diabetes Association. Diabetes Care. 2016.39(Suppl 1). LAB 3094-0(LOINC) BUN SerPl-mCnc 17 9-24 mg/ dL LAB 2160-0(LOINC) Creat SerPl-mCnc 0.92 0.73-1.22 mg/dL LAB 2951-2(LOINC) Sodium SerPl-sCnc 137 136-144 mmol/L LAB 2823-3(LOINC) Potassium SerPl-sCnc 4.1 3.7-5.1 mmol/L LAB 2075-0(LOINC) Chloride SerPl-sCnc 107 98-107 mmol/L LAB 2028-9(LOINC) CO2 SerPl-sCnc 22 22-30 mmo l/L LAB 44196-7(LOINC) Anion Gap SerPl-sCnc 8 8-15 mmol/L LAB 04350-7(LOINC) Creatinine + eGFR Pnl SerPlBld 88 >=60 [...] accurately reflect actual GFR. Performed By: #### 11024-7 # ### [facility] CLIA [id number] [address] [place] [address] [place] PVR ANK PRESS NANCY [facility] LAB Observed: 12/2024 8:00 AM Status: F Source: [facility] Non-Invasive Vascular Labora [facility] Lower Extremity Arterial Physiology Study Bilateral/Complete [...] Normal at rest. Technologist: Lilliana Winter RVT [facility] Ordering physician: ALISSA NANCE Interpreting physician: KELSEY Ron MD Final CC [email or web address] Medical Image : [id number] See Link below for Image CNOV Observed: 05/15/2024 8:00 AM Status: COMPLETED Source: [facility] KYLEEALISSA ([id number]) 1950 M Date Time Provider Department 05/15/24 [...] CAD/CHF/HX of STEMI and YUKI: followed with [facility] cardiology on 12/13/2023. Switched from Brilinta to [...] gi upset: Yes Going to go to [facility] [facility] to work on weight. Had lost some weight doing cardaic rehab but has since gained some back PAST MEDICAL HISTORY Diagnosis Date CAD (coronary artery disease) Carpal tunnel syndrome on right s/p surgical correction CHF (congestive heart failure) ([facility]) 04/17/2023 EF 45% Chronic left shoulder pain 20+ years, ran over by a sow Diabetes mellitus type II, controlled ([facility]) Fatty liver 05/02/2022 on US HTN (hypertension) Mild nonproliferative diabetic retinopathy of both eyes without macular edema associated with type 2 diabetes mellitus ([facility]) 04/2020 Obesity S/P angioplasty with stent 03/2023 YUKI to obtuse marginal branch Thrombocytopenia ([facility]) ALLERGIES Farxiga [Dapagliflozin] and Chlorhexidine MEDICATIONS Current [...] Abs Lymph 1.00 - 4.00 k/uL 1.61 Colquitt% % 12.2 Abs [place]itt <0.87 k/uL 0.64 Eosin% % 3.1 Abs [...] HEMOGLOBIN A1C 2. Coronary artery disease involving ute heart without angina pectoris, unspecified vessel or lesion type - ICD9: 414.01, ICD10: I25.10 - stable - CARVEDILOL 25 MG TABLET - follow-up with cardiology as recommended 3. Encounter for immunization - ICD9: V03.89, ICD10: Z23 - INFLUENZA VACCINE, PRSV FREE, AGE 65+ YR, HIGH DOSE, TRIVALENT (FLUZONE HIGH-DOSE) - [employer] COVID-19 VACCINE AGE 12+ YR (COMIRNATY) 4. [...] follow-up with cardiology as recommended Heather Marquez APRN.PSYCHIATRIC NURSE PRACTITIONER Prescription instructions reviewed with patient as applicable. [...] [E11.9] Other Visit Diagnoses:Coronary artery disease involving ute heart without angina pectoris, unspecified vessel or [...] 65+ YR, HIGH DOSE, TRIVALENT (FLUZONE HIGH-DOSE) [39063YGM] Order #: [id number] [employer] COVID-19 VACCINE AGE 12+ YR (COMIRNATY) [[id number]] Order #: [id number] ALBUMIN/CREATININE RATIO, URINE [SQUACR] Order #: [id number] FUTURE LIPID PANEL BASIC [SQLIPB] Order #: [id number] FUTURE COMPREHENSIVE METABOLIC PANEL [SQCMP] Order #: [id number] FUTURE COMPLETE BLOOD COUNT AND DIFFERENTIAL [SQCBCDIF] Order #: [id number] FUTURE HEMOGLOBIN A1C [VDVMV5G] Order #: [id number] FUTURE Prescriptions as of 05/15/2024 - carvedilol [...] for Encounter Date Provider Department Center 05/15/2024 [id number]-FEMJGXNFHEATHER MARQUEZ [facility] Encounter Status:Closed by HEATHER MARQUEZ on 05/15/24 PROGRESS Observed: 05/15/2024 7:54 AM Status: COMPLETED Source: [facility] ID: [id number] Author: HEATHER MARQUEZ APRN.PSYCHIATRIC NURSE PRACTITIONER Service: ? Author Type: Nurse Practitioner Type: [...] CAD/CHF/HX of STEMI and YUKI: followed with [facility] cardiology on 12/13/2023. Switched from Brilinta to [...] gi upset: Yes Going to go to [facility] [facility] to work on weight. Had lost some [...] or lesions to exposed skin Latest Ref [facility] 05/14/2024 WBC 3.70 - 11.00 [...] Abs Lymph 1.00 - 4.00 k/uL 1.61 Colquitt% % 12.2 Abs [place] <0.87 k/uL 0.64 Eosin% % 3.1 Abs [...] HEMOGLOBIN A1C 2. Coronary artery disease involving ute heart without angina pectoris, unspecified vessel or lesion type - ICD9: 414.01, ICD10: I25.10 - stable - CARVEDILOL 25 MG TABLET - follow-up with cardiology as recommended 3. Encounter for immunization - ICD9: V03.89, ICD10: Z23 - INFLUENZA VACCINE, PRSV FREE, AGE 65+ YR, HIGH DOSE, TRIVALENT (FLUZONE HIGH-DOSE) - [employer] COVID-19 VACCINE AGE 12+ YR (COMIRNATY) 4. [...] with cardiology as recommended Heather Podlogjulio césar, COVER SEAMER.PSYCHIATRIC NURSE PRACTITIONER Prescription instructions reviewed with patient as applicable. [...] SERPL Collected: 7:25 AM Status: F Source: [facility] Order Comment: Specimen Type : BLOOD SPECIMEN Ordering Facility: [facility] Address: [address] [place] [address] TYPE CODE TESTS RESULT OUT OF RANGE REFERENCE UNITS LAB 2885-2(LOINC) Prot SerPl-mCnc 6.3 6.3-8.0 g/dL LAB 1751-7(LOINC) Albumin SerPl-mCnc 3.9 3.9-4.9 g/dL LAB 46842-8(LOINC) Calcium SerPl-mCnc 8.7 8.5-10.2 mg/dL LAB 1975-2(LOINC) Bilirub SerPl-mCnc 0.7 0.2-1.3 mg/dL LAB 6768-6(LOINC) ALP SerPl-cCnc 112 38-113 U/L LAB 1920-8(LOINC) AST SerPl-cCnc 17 14-40 U/L LAB 1742-6(LOINC) ALT SerPl-cCnc 22 10-54 U/L LAB 2345-7(LOINC) Glucose SerPl-mCnc 149 High 74-99 mg/dL Result Comment: The [place] Diabetes Association (ADA) provides guidance for cutoff [...] Standards of Medical Care in Diabetes 2016, [place] Diabetes Association. Diabetes Care. 2016.39(Suppl 1). LAB 3094-0(LOINC) BUN SerPl-mCnc 16 9-24 mg/ dL LAB 2160-0(LOINC) Creat SerPl-mCnc 0.93 0.73-1.22 mg/dL LAB 2951-2(LOINC) Sodium SerPl-sCnc 142 136-144 mmol/L LAB 2823-3(LOINC) Potassium SerPl-sCnc 4.2 3.7-5.1 mmol/L LAB 2075-0(LOINC) Chloride SerPl-sCnc 107 98-107 mmol/L LAB 2028-9(LOINC) CO2 SerPl-sCnc 25 22-30 mmo l/L LAB 95002-5(LOINC) Anion Gap SerPl-sCnc 10 8-15 mmol/L LAB 19042-7(LOINC) Creatinine + eGFR Pnl SerPlBld 88 >=60 [...] accurately reflect actual GFR. Performed By: #### 06143-2 # ### [facility] CLIA [id number] [address] [place] [address] [place] DEPRECATED HGB A1C BLD Collected: 05/14 7:25 AM Status: F Source: [facility] Comment: Specimen Type : BLOOD SPECIMEN Ordering Facility: [facility] Address: [address] [place] [address] TYPE CODE TESTS RESULT OUT OF RANGE REFERENCE UNITS LAB 4548-4([facility]) HbA1c MFr Bld 6.4 High 4.3-5.6 % Result Comment: [place] Ves[place] betes Association guidelines indicate that patients with HgbA1c in the range 5.7-6.4% are at increased risk for development of diabetes, and intervention by lifestyle modification may be beneficial. HgbA1c greater or equal to 6.5% is considered diagnostic of diabetes. LAB 54951-2(INC) Est. average glucose Bld gHb Est-mCnc 137 mg/dL Result Comment: eAG: (Estima baudilio average glucose) is a calculated value from HgbA1c and is senior outside sales representative of the average blood glucose level in the last 2-3 month period. Performed By: #### 14397-2 # ### [facility] CLIA [id number] [address] [place] [address] [place] CBC W AUTO DIFF BLD Collected: 05/14/2024 7:[address] atus: F Source: [facility] Comment: Specimen Type : BLOOD SPECIMEN Ordering Facility: [facility] Address: [address] [place] [address] TYPE CODE TESTS RESULT OUT OF RANGE REFERENCE UNITS LAB 6690-2([facility]) WBC # Bld Auto 5.23 3.70-11.00 k/uL LAB 789-8([facility]) RBC # Bld Auto 4.85 4.20-6.00 m/ uL LAB 718-7([facility]) Hgb Bld-mCnc 14.8 13.0-17.0 g/dL LAB 4544-3([facility]) Hct VFr Bld Auto 43.3 39.0-51.0 % LAB 787-2([facility]) MCV RBC Auto 89.3 80.0-100.0 fL LAB 785-6([facility]) MCH RBC Qn Auto 30.5 26.0-34.0 p g LAB 786-4([facility]) MCHC RBC Auto-mCnc 34.2 30.5-36.0 g/dL LAB 21421-3([facility]) RDW RBC-Rto 12.5 11.5-15.0 % LAB 777-3([facility]) Platelet # Bld Auto 144 Low 150-400 k/uL LAB 72373-8([facility]) PMV Bld Auto 9.6 9.0-12.7 fL LAB 770-8([facility]) Neutrophils/leuk NFr Bld Auto 52.9 % LAB 751-8([facility] [facility]) Neutrophils # Bld Auto 2.77 1.45-7.50 k/uL LAB 736-9([facility]) Lymphocytes/leuk NFr Bld Auto 30.8 % LAB 731-0([facility]) Lymphocytes # Bld Auto 1.61 1.00-4.00 k/uL LAB 5905-5([facility]) Monocytes/leuk NFr Bld Auto 12.2 % LAB 742-7([facility]) Monocytes # Bld Auto 0.64 <0.87 k/uL LAB 713-8([facility]) Eosinophil/leuk NFr Bld Auto 3.1 % LAB 711-2([facility]) Eosinophil # Bld Auto 0.16 <0.46 k/uL LAB 706-2([facility]) Basophils/leuk NFr Bld Auto 0.8 % LAB 704-7([facility]) Basophils # Bld Auto 0.04 <0.11 k/uL LAB 74365-0(LOINC) Imm Granulocytes/cheryl k NFr Bld Auto 0.2 % LAB 27834-5(LOINC) Imm Granulocytes # Bld Auto <0.03 <0.10 k/uL LAB 88443-7(LOINC) nRBC/100 WBC Bld-Rto 0.0 /100 WBC LAB 771-6(LOINC) nRBC # Bld Auto <0.01 <0.01 k/u L LAB 20032-0([facility]) Differential method Bld Auto Performed By: #### 17358-9 # ### [facility] CLIA [id number] [address] [place] [address] CNPN Observed: 05/13/2024 12:00 AM Status: COMPLETED Source: [facility] Telephone (BBspaceWS) ALISSA PICHARDO ([id number]) 1950 M Date Time Provider Department 05/13/24 SON RAMIREZ mohchi During your visit today, we recorded the [...] orders have been placed. Voiced understanding. Zahra Brown RN Allergies As of Date: 05/13/2024 Noted Allergy Reaction FARXIGA (DAPAGLIFLOZIN) 11/14/2023 2 - Rash CHLORHEXIDINE 04/06/2023 4 - Hives Date Reviewed: 04/29/2024 Reviewed by: Elinor Salvador LPN - Fully Assessed Reason for Visit: Lab Orders [1688] Primary Visit Diagnosis:Controlled type 2 diabetes mellitus without complication, without long-term current use of insulin (HCC) [E11.9] Order(s):COMPREHENSIVE METABOLIC PANEL [SQCMP] Order #: [id number] FUTURE HEMOGLOBIN A1C [WWPEP5Q] Order #: [id number] FUTURE COMPLETE BLOOD COUNT AND DIFFERENTIAL [SQCBCDIF] Order #: [id number] FUTURE Prescriptions as of 05/13/2024 - clopidogrel [...] Observed: 04/29/2024 8:09 AM Status: COMPLETED Source: [facility] ID: [id number] Author: ALISSA NANCE, ? Service: ? Author [...] s/p surgical correction CHF (congestive heart failure) ([facility]) 04/17/2023 EF 45% Chronic left shoulder pain 20+ years, ran over by a sow Diabetes mellitus type II, controlled ([facility]) Fatty liver 05/02/2022 on HTN (hypertension) Mild nonproliferative diabetic retinopathy of both eyes without macular edema associated with type 2 diabetes mellitus (HCC) 04/2020 Obesity S/P angioplasty with stent 03/2023 YUKI to obtuse marginal branch Thrombocytopenia ([facility]) Current Outpatient Medications Medication Sig clopidogrel (PLAVIX) [...] Objective: Patient presents to clinic ambulating in [facility] Constitutional: Pt is a well developed 73 [...] Observed: 04/29/2024 8:05 AM Status: COMPLETED Source: [facility] HNO ID: [id number] Author: ELINOR SALVADOR LPN Service: ? Author [...] Observed: 04/29/2024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
[2025-02-24 09:45] LABS: Anion Gap 10 (5-15); BUN 28 mg/dL (4-19); BUN/Creat Ratio 25.3 RATIO (10-20); Calcium,Total 8.6 mg/dL (7.6-11.0); Carbon Dioxide 21.9 mmol/L (21.0-32.0); Chloride 108 mmol/L (98-108); Glucose 167 mg/dL (70-99); Potassium 4.3 mmol/L (3.3-5.1)
== END | disposition home or self-care (01) ==
LOC: LAB 08:39
PROVIDERS: PCP Family Medicine; Referring Provider Urology; Visit Provider Urology
DX: N20.1 Calculus of ureter (principal)
CPT/HCPCS: 36415; 80048

== ENCOUNTER → 2025-05-21 | Outpatient (CLI) | payer MEDICARE, BC, SELFPAY ==
[2023-07-28 09:24] VITALS: BMI 34.1
--- OUTSIDE RECORDS SUMMARY | 2025-05-21 10:10 | XMS RPT_ITS | CCD ---
Author Organization [facility] Care Team Providers Care Marketing Executive Name Role Phone Son Ramirez MD Primary Care Provider SON RAMIREZ Consulting Unavailab le TAYLOR GARCIA PAC Attending Unavailable TAYLOR GARCIA PAC Primary Care Unavailable RADHA TAYLOR PAC Admitting Unavailable PROVIDER, UNKNOWN Consulting Unavailable Son Ramirez MD Primary Care Provider Dr. Aleksandr Ramirez Primary Care Provider MD Jose Angel [place] Emergency Provider Dr. Jf Dow Admit Provider Dr. Jf Dow Other Provider Dr. Indu Messer Attending Provider Dr. Indu Messer Other Provider Dr. Dion Sabillon Attending Provider Dr. Dion Sabillon Other Provider Dr. nIdu Messer Referring Provider Dr. Luis Sylvester Attending Provider Dr. Luis Sylvester Referring Provider Dr. Aleksandr Ramirez Referring Provider Edward ORCHARDIST, ORCHARDISTCaity Erazo Attending Provider Dr. Indu Messer Admit Provider Dr. Aleksandr Ramirez Primary Care Provider [phone] Dr. Aleksandr Ramirez Referring Provider Roof ORCHARDIST, ORCHARDIST-C Albin Erazo Attending Provider Ayde, Dr. Griggs Attending Provider Ayde, Dr. Griggs Admit Provider Dr. Indu Messer Referring Provider Ayde, Dr. Griggs Other Provider Dr. Tino Garcia Attending Provider James, Dr. Brandon Primary Care Provider [phone] Dr. Aleksandr Ramirez Referring Provider Roof ORCHARDIST, ORCHARDIST-C Albin Erazo Attending Provider Son Ramirez MD Primary Care Provider Podlogar GLOBAL ACCOUNT DIRECTOR.HUMAN SERVICES INSTRUCTOR, Umu Unavailable Knoble GLOBAL ACCOUNT DIRECTOR.HUMAN SERVICES INSTRUCTOR, Jenn Unavailable Dr. Aleksandr Ramirez MD Primary Care Provider Dr. Aleksandr Ramirez MD Referring Provider Gelacio Phillip Attending Provider Dr. Brett Mazariegos DO Emergency Provider Dr. Brett Mazariegos DO Attending Provider Gelacio Phillip Referring Provider Lillian JESUS-C, Tiffany Florentino Attending Provider SON RAMIREZ Primary Care Unavailab le PODLOGAR, UMU Attending Unavailable SON RAMIREZ Primary Care Unavailab le PODLOGKUSHAL, UMU Referring Unavailable SON RAMIREZ Primary Care Unavailab le TESTRAALISSA MERCADO Attending Unavailable ALISSA GUTIERREZ Referring Unavailable SON RAMIREZ Attending Unavailab le SON RAMIREZ Primary Care Unavailab le PODLOGAR, UMU Referring Unavailable SON RAMIREZ Primary Care Unavailab le SON RAMIREZ Primary Care Unavailab ALISSA Aguirre Referring Unavailable Bursley, Aleksandr Referring Unavailable Bursley, Aleksandr Primary Care Unavailable Tiffany Snyder Attending Unavailable Bursley, Aleksandr Primary Care Unavailable Bursley, Aleksandr Referring Unavailable Tino Garcia Attending Unavailable Brett Mazariegos Attending Unavailable Bursley, Aleksandr Primary Care Unavailable Gelacio Barr Attending Unavailable Gelacio Barr Referring Unavailable Bursley, Aleksandr Primary Care Unavailable Bursley, Aleksandr Primary Care Unavailable Yaya Tristan Attending Unavailable Yaya Tristan Referring Unavailable Bursley, Aleksandr Primary Care Unavailable Bursley, Aleksandr Referring Unavailable Gelacio Barr Attending Unavailable Allergies Allergy Classification Reported Allergen(s) Allergy Type Date of Onset Reaction(s) Facility Chlorhexidine (1 source) Chlorhexidine Drug Allergy 04-06-2023 [facility] dapagliflozin (1 source) dapagliflozin Drug Allergy 11-14-2023 [facility] (20 sources) Chlorhexidine; Translations: [CHLORHEXIDINE] Drug Allergy 04-06-2023 [facility] (10 sources) dapagliflozin; Translations: [DAPAGLIFLOZIN] Drug Allergy 11-14-2023 [facility] Work Phone: (1 source) Chlorhexidine Drug Allergy 01-31-2025 [facility] Repository Medications Current Medications Medication Drug Class(es) Dates Sig (Normalized) Sig (Original) acetaminophen 325 mg / oxyCODONE hydrochloride 5 mg oral tablet (3 sources) Opioid Agonist Start: 01-14-2025 take 1 tablet by mouth every six hours as needed for pain Oxycodone-Acetami nophen (Percocet) 5-325 mg tablet Active 1 {tbl} PO EVERY 6 HOURS as needed for pain 20 5 0 January 14, 2025 Renal colic Calculus of kidney Unspecified renal colic Calculus of kidney amoxicillin 875 mg oral tablet (1 source) [...] complication, without long-term current use of insulin ([facility]) , Coronary artery 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, unspecified vessel or [...] Discontinued 20 mg PO AT BEDTIME 90 October 10, 2023 3:36pm October 31, 2023 4:58pm cholesterol Start: 05-02-2023 End: 10-10-2023 take 1 tablet by mouth at bedtime Atorvastatin 40 mg t ablet Discontinued 40 mg PO AT BEDTIME 90 May 02, 2023 4:03pm October 10, 2023 3:36pm cholesterol Start: 04-17-2023 End: 11-13-2024 take 1 tablet by mouth once daily at bedtime for hyperlipidemia atorvastatin (LIPITOR) 40 mg tablet Indications: Controlled type 2 diabetes mellitus without complication, without long-term current use of insulin ([facility]) Take 1 tablet by mouth daily at [...] mg tablet Indications: Coronary artery 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, unspecified vessel or lesion type Take 4 tablets by mouth two times a day with meals. 720 tablet 0 11/14/2023 11/14/2023 Discontinued Start: 10-10-2023 End: 05-12-2025 take 1 tablet by mouth twice daily at mealtime carvedilol (COREG) 25 mg tablet Indications: Coronary artery 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, unspecified vessel or [...] h two times a day with meals. cephalexin 500 mg oral capsule (3 sources) Cephalosporin Antibacterial Start: 5 take 1 capsule by mouth three times daily Cephalexin 500 mg capsule Active 500 mg PO THREE TIMES A DAY 21 7 0 January 15, 2025 12:00am clopidogrel 75 mg oral tablet (15 sources) P2Y12 Platelet Inhibitor Start: 4 take 1 tablet by mouth once daily Clopidogrel 75 mg tablet Active 75 mg PO DAILY 90 3 April 05, 2024 9:53am Start: 12-13-2023 End: [...] COMPRESSIO N STOCKINGS 30-40 MM. DX: EDEMA ketorolac tromethamine 10 mg oral tablet (3 sources) Nonsteroidal Anti-inflammatory Drug, Cyclooxygenase Inhibitor Start: 025 take 1 tablet by mouth four times daily as needed for pain Ketorolac 10 mg tablet Active 10 mg PO 4 TIMES DAILY as needed for pain 20 5 0 January 14, 2025 11:43pm metFORMIN hydrochloride 500 mg oral tablet (20 sources) Biguanide Start: 018 End: 025 take 1 tablet by mouth once daily at breakfast metFORMIN (GLUCOPHAGE) 500 mg tablet Indications: Controlled type 2 diabetes mellitus without complication, without long-term current use of insulin (HCC) Take 1 tablet by mouth daily with breakfast. 90 tablet 1 01/09/2025 Active Comment on above: Take 1 tablet by diana th daily with breakfast. Multivitamin (Daily Multi-Vitamin) tablet (11 sources) Start: Multivitamin (Daily Multi-Vitamin) tablet Active 1 {tbl} [...] (20 sources) take 1 capsule by mo ut once daily Multivitamin capsule Take 1 capsule by mouth once daily. Active take 1 capsule by mouth once amish ly Multivitamin capsule Take 1 capsule by mouth once daily. 0 Active Comment on above: Take 1 capsule by [facility] once daily. nitroglycerin 0.4 mg sublingual tablet (20 sources) Nitrate Vasodilator Start: 04-17-20 End: 09-28-19 nitroglycerin sublingual (NITROSTAT) 0.4 mg SL tablet Dissolve 1 tablet under the tongue every 5 minutes as needed for chest pain. 25 tablet 04/17/2023 Active Comment on above: Dissolve 1 tablet un [place] the tongue every 5 minutes as needed for chest pain. omeprazole 20 mg delayed release oral capsule (20 sources) Proton Pump Inhibitor Start: 11-12-19 End: 11-14-19 take 1 tablet by mouth once daily Omeprazole Magnesium (PRILOSEC OTC) 20 mg tablet Take 1 tablet by mouth once daily. 90 tablet 1 03/17/2024 11/13/2024 Discontinued Start: 03-21-2021 End: 07-08-2025 take 1 capsule by mouth once daily omeprazole (PRILOSEC) 20 mg capsule Take 1 capsule by mouth once daily. 90 capsule 1 01/09/2025 07/08/2025 Active Comment on above: Take 20 mg by mouth once daily. Take 1 tablet by [facility] once daily. ondansetron 4 mg disintegrating oral tablet (3 sources) Serotonin-3 Receptor Antagonist Start: 01-15-20 take 1 tablet by mouth three times daily as needed for nausea and vomiting Ondansetron 4 mg tablet,disintegrati ng Active 4 mg PO THREE TIMES A DAY as needed for nausea and vomiting January 14, 2025 11:43pm tamsulosin hydrochloride 0.4 mg oral capsule (3 sources) alpha-Adrenergic Maico Start: 01-15-20 take 1 capsule by mouth once daily Tamsulosin (Flomax) 0.4 mg capsule Active 0.4 mg PO DAILY 14 14 January 14, 2025 12:00am valsartan 320 mg oral tablet (20 sources) Angiotensin 2 Receptor Maico Start: 01-20-20 End: 05-15-20 25 take 1 tablet by mouth once daily valsartan (DIOVAN) 320 mg tablet Take 1 tablet by mouth once daily. 90 tablet 1 05/15/2024 05/15/2025 Active Comment on above: Take 1 tablet by diana th once daily. Completed/Discontinued Medications Medication Drug Class(es) Dates Sig (Normalized) Sig (Original) acetaminophen 325 mg / HYDROcodone bitartrate 5 mg oral tablet (13 sources) Opioid Agonist Start: 03-21-2021 End: 04-06-2023 Hydrocodone-Acetami nophen 1 TABLET tablet Discontinued 1 {tbl} PO EVERY 4 HOURS NEEDED as needed for Pain 10 2 March 21, 2021 April 06, 2023 2:08pm Closed nondisplaced fracture of second metacarpal bone of left hand Start: 03-21-2021 End: 04-06-2023 take 1 tablet by mouth every four hours as needed Hydrocodone-Acetaminophen Discontinued 1 TABLET PO EVERY 4 HOURS NEEDED 10 March 21, 2021 April 06, 2023 1:08pm amoxicillin 875 mg / clavulanate 125 mg oral tablet (20 sources) Penicillin-class Antibacterial Start: 01-05-2021 End: 01-11-2021 Amoxicillin-Pot Clavulanate (Augmentin) 875-125 mg tablet Discontinued 1 {tbl} PO TWICE A DAY January 06, 2021 3:02am January 11, 2021 10:12am infection aspirin 81 mg delayed release oral tablet (12 sources) Platelet Aggregation Inhibitor, Nonsteroidal Anti-inflammatory Drug Start: 04-08-2023 End: 12-11-2024 take 1 tablet by mouth once daily Aspirin 81 mg Tablet,Delayed Release (Dr/Ec) Discontinued 81 mg PO DAILY@0800 1 0 April 08, 2023 1:00am December 11, 2024 8:33am ciprofloxacin 500 mg oral tablet (13 sources) Quinolone Antimicrobial Start: 01-11-2021 End: 01-25-2021 take 1 tablet by mouth twice daily Ciprofloxacin Hcl (Cipro) 500 mg tablet Discontinued 500 mg PO TWICE A DAY January 11, 2021 12:00am January 25, 2021 8:50am dapagliflozin 10 mg oral tablet (4 sources) Sodium-Glucose Cotransporter 2 Inhibitor Start: 10-31-2023 End: 11-28-2023 take 1 tablet by mouth once daily Dapagliflozin Propanediol (Farxiga) 10 mg tablet Discontinued 10 mg PO DAILY 27 04October 31, 2023 12:00am November 28, 2023 4:45pm metroNIDAZOLE 500 mg oral tablet (13 sources) Nitroimidazole Antimicrobial Start: 01-11-2021 End: 01-25-2021 take 1 tablet by mouth every eight hours Metronidazole 500 mg tablet Discontinued 500 mg PO Q8H 30 0 January 11, 2021 12:00am January 25, 2021 8:51am oxyCODONE hydrochloride 5 mg oral tablet (13 sources) Opioid Agonist Start: 06-19-2017 End: 07-19-2017 take 1 tablet by mouth every four hours as needed for pain Oxycodone 5 MG tablet Discontinued 5 mg PO EVERY 4 HOURS NEEDED as needed for Severe Pain (6-03/07) 20 0 June 19, 2017 1:00am July 19, 2017 10:15am Incisional hernia Incisional hernia without obstruction or gangrene ticagrelor 90 mg oral tablet (20 sources) Start: 04-08-2023 End: 04-29-2024 take 1 tablet by mouth twice daily Ticagrelor (Brilinta) 90 mg tablet Discontinued 90 mg PO TWICE A DAY 60 6 December 07, 2023 9:43am December 13, 2023 9:40am Comment on above: Take 1 tablet by diana th two times a day. Take 90 mg by mouth two times a day. triamcinolone acetonide 40 mg/ml injectable suspension (2 sources) Corticosteroid Start: 04-12-2018 End: 04-12-2018 inject 80 mg by intramuscular injection once [...] [Unspecified abdominal pain] Onset: 07-31-2014 07-31-2014 Episodic Acute and unspecified renal failure (13 sources) Injury of kidney; Translations: [Acute kidney failure, unspecified] 08-24-2021 Episodic Acute myocardial infarction (20 sources) Myocardial infarction; Translations: [Non-ST elevation (NSTEMI) myocardial infarction] Onset: 04-17-2023 04-07-2023 Chronic Calculus of urinary tract (7 sources) Renal colic; Translations: [Unspecified renal colic] Onset: 03-21-2025 01-14-2025 Episodic Coagulation and hemorrhagic disorders (20 sources) Platelet count below reference range; Translations: [Thrombocytopenia, unspecified] Onset: 10-23-2020 Resolved: 10-17-2022 10-23-2020 Chronic Congestive heart failure; nonhypertensive (18 sources) Congestive heart failure; Translations: [Unspecified systolic (congestive) heart failure] Onset: 04-17-2023 04-17-2023 Chronic Coronary atherosclerosis and other heart disease (20 sources) Coronary arteriosclerosis; Translations: [Atherosclerotic heart disease of [place] coronary artery without angina pectoris] Onset: 04-17-2023 [...] Onset: 05-15-2024 05-02-2023 Chronic E Codes: Fall (13 sources) Accidental fall ; Translations: [Unspecified fall, initial encounter] 03-29-2021 Episodic Esophageal disorders (6 sources) Gastroesophageal reflux disease; Translations: [Gastro-esophageal reflux disease without esophagitis] Onset: 11-13-2024 11-13-2024 Chronic Essential hypertension (20 sources) Hypertensive disorder; Translations: [Essential (primary) hypertension] Onset: 08-13-2014 08-13-2014 Chronic Fracture of upper limb (13 sources) Closed fracture of second metacarpal; Translations: [Unspecified fracture of second metacarpal bone, left hand, initial encounter for closed fracture] 03-29-2021 Episodic Hepatitis (20 sources) Nonalcoholic steatohepatitis; Translations: [Nonalcoholic steatohepatitis (RAMOS)] Onset: 08-27-2014 08-27-2014 Chronic Intestinal obstruction without hernia (13 sources) Intestinal obstruction co-occurrent and due to [...] graft, unspecified] 04-17-2023 Chronic Other circulatory disease (5 sources) History of angioplasty; Translations: [Peripheral vascular [...] injuries and conditions due to external causes (13 sources) Injury of left shoulder; Translations: [Unspecified injury of left shoulder and upper arm, initial encounter] 03-29-2021 Episodic Other liver diseases (4 sources) Alkaline phosphatase raised; Translations: [Abnormal levels of other serum enzymes] Episodic Other lower respiratory disease (1 source) Persistent cough; Translations: [Persistent cough] Episodic Other nervous system disorders (4 sources) Carpal tunnel syndrome of right wrist; Translations: [Carpal tunnel syndrome, right upper limb] 11-13-2024 Chronic Other nervous system disorders (1 source) Abnormal gait; Translations: [Unsteadiness on feet] Episodic Other nutritional; endocrine; and metabolic disorders (20 sources) Obesity; Translations: [Obesity, unspecified] Onset: 08-13-2014 08-13-2014 Chronic Other nutritional; endocrine; and metabolic disorders (16 sources) Obese class II; Translations: [Obesity, unspecified] [...] rhinitis, unspecified] Chronic Other upper respiratory infections (13 sources) Upper respiratory infection; Translations: [Acute upper respiratory infection, unspecified] 12-26-2020 Episodic Otitis media and related conditions (1 source) Acute suppurative otitis media without spontaneous rupture of ear drum; Translations: [Acute suppurative otitis media without spontaneous rupture of ear drum, right ear] Episodic Pancreatic disorders (not diabetes) (20 sources) Pancreatitis; Translations: [Acute pancreatitis without necrosis or infection, unspecified] Episodic Residual codes; unclassified (4 sources) Obstructive sleep apnea syndrome; Translations: [Obstructive sleep apnea (adult) (pediatric)] 01-31-2025 Chronic Comment on above: AHI 8/h using AASM 1 B rule Residual codes; unclassified (1 source) Obstructive sleep apnea (adult) (pediatric); Translations: [Obstructive sleep apnea (adult) (pediatric)] Onset: 01-31-2025 Chronic Residual codes; unclassified (5 sources) Bilateral lower limb edema; Translations: [Localized edema] Episodic Screening and history of mental health and substance abuse codes (2 sources) Tobacco use and exposure - finding; Translations: [Personal history of nicotine dependence] Episodic Spondylosis; intervertebral disc disorders; other back problems (13 sources) Acute low back pain; Translations: [Acute right-sided low back pain] 01-19-2021 Episodic Unclassified (1 source) Obesity, Class II, BMI 35-39.9; Translations: [Obesity, Class II, BMI 35-39.9] Onset: 10-17-2022 Past or Other Problems Problem Classification Problem Date Documented Date Episodic/Chronic Biliary tract disease (20 sources) Biliary calculus; Translations: [Calculus of gallbladder without cholecystitis without obstruction] Onset: 07-31-2014 07-31-2014 Episodic Coronary atherosclerosis and other heart disease (20 sources) Stented coronary artery; Translations: [Presence of coronary angioplasty implant and graft] Onset: 04-06-2023 04-14-2023 Episodic Comment on above: 2.75X 26 mm Eliel YUKI to OM1: needs staged procedure; 05/11/2023: [...] Test Name Value Interpretation Reference Range Facility Basic Metabolic Profile (BMP )on 02-24-2025 BUN/CRE 25.3 RATIO High 10-20 [facility] Comment on above: Performed By: #### L 500.2500 #### [facility] [address] [place], [address] Calcium [Mass/Vol] 8.6 mg/dL Normal 7.6-11.0 [facility] Comment on above: Performed By: #### L 500.2500 #### [facility] [address] [place], [address] Chloride [Moles/Vol] 108 mmol/L Normal 98-108 [facility] Comment on above: Performed By: #### L 500.2500 #### [facility] [address] [place], [address] CO2 [Moles/Vol] 21.9 mmol/L Normal 21.0-32.0 [facility] Comment on above: Performed By: #### L 500.2500 #### [facility] [address] [place], [address] Creatinine [Mass/Vol] 1.09 mg/dL Normal 0.70-1.20 [facility] Comment on above: Performed By: #### L 500.2500 #### [facility] [address] [place], [address] GAP 10 Normal 5-15 [facility] Comment on above: Performed By: #### L 500.2500 #### [facility] [address] [place], [address] GFR/1.73 sq M.predicted among non-blacks MDRD (S/P/Bld) [Vol rate/Area] 72 mL/min/{1.73_m2} Normal >60 [facility] Comment on above: Result Comment: mL/m in/1.73m2 CKD-EPI Creatinine Equation (2020) Performed By: #### L 500.2500 #### [facility] [address] [place], [address] Glucose [Mass/Vol] 167 mg/dL High 70-99 [facility] Comment on above: Performed By: #### L 500.2500 #### [facility] [address] [place], [address] Potassium [Moles/Vol] 4.3 mmol/L Normal 3.3-5.1 [facility] Comment on above: Performed By: #### L 500.2500 #### [facility] [address] [place], [address] Sodium [Moles/Vol] 139 mmol/L Normal 133-145 [facility] Comment on above: Performed By: #### L 500.2500 #### [facility] [address] [place], [address] Urea nitrogen [Mass/Vol] 28 mg/dL High 4-19 [facility] Comment on above: Performed By: #### L 500.2500 #### [facility] [address] [place], [address] Pulmonary Visit Reporton Pulmonary Visit Report [facility] [place] [address] [place] [address] OFFICE VISIT Date of Service: 01/31/25 MR#: [id number] Acct: [id number] Name: ALISSA CAPPS Rep #: [id number] Provider: Tiffany Snyder NP Age/Sex: 74/M Location: [facility] Status: Signed with Addenda ADDENDUM by Tiffany Snyder NP on 01/31/25 at 0951 Assessment and Plan Assessment and Plan (1) Obstructive sleep apnea: Status: Acute Comment: AHI 8/h using AASM 1B rule Plan: This serves as an addendum to the previous note. The patient should be set up with AutoPap at 8 to 15 cm of water pressure. (2) Hypertension: Status: Chronic Qualifiers: Hypertension type: primary hypertension Qualified Code(s): I10 - Essential (primary) hypertension (3) Diabetes: Status: Chronic Comment: type 2 Plan Details Follow Up: 8 to 10 weeks (LMR) 01/31/25 0951 Date Tiffany Snyder cc: * Signed Assessment and Plan Assessment and Plan (1) Obstructive sleep apnea: Status: Acute Comment: AHI 8/h using AASM 1B rule Plan: Mild obstructive sleep apnea was identified but the patient does have severe disease in REM sleep. The pathophysiology of obstructive sleep apnea was reviewed at length with patient. I have discussed the correlation between comorbid disease processes and sleep apnea as well. I recommend treating this disease process with PAP therapy as it is the gold standard of treatment. Alternative treatment options including a mandibular advancement device was also discussed with patient today. The patient is agreeable to proceed with AutoPap and I recommend a set up of 6 to 15 cm initially. I plan to follow this patient in 8 to 10 weeks with a compliance download as he will then have been set up with his PAP device through his [employer] company, [employer]. If further adjustments are needed for his pressure then they can be made on follow-up. If patient has difficulty adjusting to his device then he should notify this practice. (2) Hypertension: Status: Chronic Qualifiers: Hypertension type: primary hypertension Qualified Code(s): I10 - Essential (primary) hypertension Plan: Blood pressure is slightly elevated today. I have discussed the correlation between sleep apnea and hypertension. I have recommended treatment for sleep apnea to improve cardiovascular status. (3) Diabetes: Status: Chronic Comment: type 2 Plan: Today have asked explain the correlation between sleep apnea and diabetes. I have discussed how uncontrolled sleep apnea affects glucose levels. The patient is motivated to treat JACQUES today. Plan This note was generated with [employer] software. It may contain incorrect words, spelling, and punctuation that were not noted in checking the note before signing. Plan Details Follow Up: 8 to 10 weeks (LMR) HPI HPI Comments Details: Patient is a 74-year-old male who presents today to establish for sleep apnea. He is ambulatory and currently on room air. He presents today with his . He completed a diagnostic PSG due to complaints of daytime sleepiness and a STOP-BANG of 6. He is a past medical history of coronary artery disease, NSTEMI in 2022, ischemic cardiomyopathy, atherosclerotic heart disease, acute kidney injury, alcohol abuse, pancreatitis, hypertension, diabetes. The PSG was ordered by his cardiology practitioner Gelacio Barr. The PSG was completed on January 22, 2025 which showed an overall AHI using the AASM 1B criteria of 8 events per hour. Using the AASM 1A criteria showed 14.9 events per hour. When the patient was in rem sleep his events were 36.4/h. Mild obstructive sleep apnea was seen on psg with central apneas recorded but the associated snoring suggest that the etiology is upper airway obstruction. Family history of sleep disorders includes a brother who has sleep apnea. Patient remembers a father who snored. He has no history of pneumonia or chronic bronchitis. He does report that he is a former smoker and quit 1979. 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 He reports that he feels rested upon awakening. He does not nap during the day. Nocturia occurs x 2. He does not experience dry mouth. He does not have sleep concerns. He falls asleep at 9:30pm and awakens at 5am. 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 Normal [facility] Urinalysis, Completeon 01-15 BACTERIA 1+ /hpf Normal None Seen [facility] Comment on above: Order Comment: SHELDON CTOR TO SPECIFY Performed By: #### L 400.0001 #### [facility] [address] [place] [address] Mucus Ql (Urine sed) 1+ /hpf Normal [facility] Comment on above: Order Comment: SHELDON CTOR TO SPECIFY Performed By: #### L 400.0001 #### [facility] [address] [place] [address] EPI,SQUAMOUS 0-5 SEEN Normal 0-5 [facility] Comment on above: Order Comment: SHELDON CTOR TO SPECIFY Performed By: #### L 400.0001 #### [facility] [address] [facility] [address] RBC 50-100 SEEN Normal 0-5 [facility] Comment on above: Order Comment: SHELDON CTOR TO SPECIFY Performed By: #### L 400.0001 #### [facility] [address] [facility] [address] WBC 0-5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 included)... Normal [facility] ALBUMIN/CREATININE RATIO, UR INEon 11-12-2024 Albumin DL <= 20 mg/L (U) [Mass/Vol] 117.3 mg/L Normal [facility] Comment on above: Order Comment: Speci men Type: BLOOD SPECIMEN Ordering Facility: [facility] Address: [address] [place] [address] Performed By: #### 2 4323-8 #### [facility] CLIA [id number] [address] [place] [address] [place] Albumin/Creatinine (U) [Mass ratio] 87 mg/g High <30 [facility] Comment on above: Order Comment: Speci men Type: BLOOD SPECIMEN Ordering Facility: [facility] Address: [address] [place] [address] Result Comment: Adul t Male and Female Nephrotic Criteria: <30 mg/g is considered normal to mildly increased 30-300 mg/g is considered moderately increased >300 mg/g is considered severely increased KDIGO. (2013). KDIGO 2012 Clinical Practice Guideline for the Evaluation and Management of Chronic Kidney Disease. Official Journal of the International Society of Nephrology, 3(1), 1-150. Performed By: #### 2 4323-8 #### [facility] [id number] [address] [place] [address] [place] Creatinine (U) [Mass/Vol] 135.3 mg/dL Normal 20.0-300.0 [facility] Comment on above: Order Comment: Speci men Type: BLOOD SPECIMEN Ordering Facility: [facility] Address: [address] [place] [address] Performed By: #### 2 4323-8 #### [facility] [id number] [address] [place] [address] [place] CBC W Auto Differential pane l (Bld)on 11-12-2024 Basophils (Bld) [#/Vol] 0.04 10*3/uL Normal <0.11 [facility] Comment on above: Order Comment: Speci men Type: BLOOD SPECIMEN Ordering Facility: [facility] Address: [address] [place] [address] Performed By: #### 5 7021-8 #### [facility] CLIA [id number] [address] [place] [address] [place] Basophils/100 WBC (Bld) 0.7 % Normal [facility] Comment on above: Order Comment: Speci men Type: BLOOD SPECIMEN Ordering Facility: [facility] Address: [address] [place] [address] Performed By: #### 5 7021-8 #### [facility] CLIA [id number] [address] [place] [address] [place] Differential cell count method Nom (Bld) Auto Normal [facility] Comment on above: Order Comment: Speci men Type: BLOOD SPECIMEN Ordering Facility: [facility] Address: [address] [place] [address] Performed By: #### 5 7021-8 #### [facility] CLIA [id number] [address] [place] [address] [place] Eosinophils (Bld) [#/Vol] 0.15 10*3/uL Normal <0.46 [facility] Comment on above: Order Comment: Speci men Type: BLOOD SPECIMEN Ordering Facility: [facility] Address: [address] [place] [address] Performed By: #### 5 7021-8 #### [facility] CLIA [id number] [address] [place] [address] [place] Eosinophils/100 WBC (Bld) 2.6 % Normal [facility] Comment on above: Order Comment: Speci men Type: BLOOD SPECIMEN Ordering Facility: [facility] Address: [address] [place] [address] Performed By: #### 5 7021-8 #### [facility] CLIA [id number] [address] [place] [address] [place] Erythrocyte distribution width (RBC) [Ratio] 12.3 % Normal 11.5-15.0 [facility] Comment on above: Order Comment: Speci men Type: BLOOD SPECIMEN Ordering Facility: [facility] Address: [address] [place] [address] Performed By: #### 5 7021-8 #### [facility] CLIA [id number] [address] [place] [address] [place] Hematocrit (Bld) [Volume fraction] 43.3 % Normal 39.0-51.0 [facility] Comment on above: Order Comment: Speci men Type: BLOOD SPECIMEN Ordering Facility: [facility] Address: [address] [place] [address] Performed By: #### 5 7021-8 #### [facility] CLIA [id number] [address] [place] [address] [place] Hemoglobin (Bld) [Mass/Vol] 15.1 g/dL Normal 13.0-17.0 [facility] Comment on above: Order Comment: Speci men Type: BLOOD SPECIMEN Ordering Facility: [facility] Address: [address] [place] [address] Performed By: #### 5 7021-8 #### [facility] CLIA [id number] [address] [place] [address] [place] Immature granulocytes (Bld) [#/Vol] 10*3/uL Normal <0.10 [facility] Comment on above: Order Comment: Speci men Type: BLOOD SPECIMEN Ordering Facility: [facility] Address: [address] [place] [address] Performed By: #### 5 7021-8 #### [facility] CLIA [id number] [address] [place] [address] [place] Immature granulocytes/100 WBC (Bld) 0.2 % Normal [facility] Comment on above: Order Comment: Speci men Type: BLOOD SPECIMEN Ordering Facility: [facility] Address: [address] [place] [address] Performed By: #### 5 7021-8 #### [facility] CLIA [id number] [address] [place] [address] [place] Lymphocytes (Bld) [#/Vol] 1.88 10*3/uL Normal 1.00-4.00 [facility] Comment on above: Order Comment: Speci men Type: BLOOD SPECIMEN Ordering Facility: [facility] Address: [address] [place] [address] Performed By: #### 5 7021-8 #### [facility] CLIA [id number] [address] [place] [address] [place] Lymphocytes/100 WBC (Bld) 32.5 % Normal [facility] Comment on above: Order Comment: Speci men Type: BLOOD SPECIMEN Ordering Facility: [facility] Address: [address] [place] [address] Performed By: #### 5 7021-8 #### [facility] CLIA [id number] [address] [place] [address] [place] MCH (RBC) [Entitic mass] 30.6 pg Normal 26.0-34.0 [facility] Comment on above: Order Comment: Speci men Type: BLOOD SPECIMEN Ordering Facility: [facility] Address: [address] [place] [address] Performed By: #### 5 7021-8 #### [facility] [id number] [address] [place] [address] [place] MCHC (RBC) [Mass/Vol] 34.9 g/dL Normal 30.5-36.0 [facility] Comment on above: Order Comment: Speci men Type: BLOOD SPECIMEN Ordering Facility: [facility] Address: [address] [place] [address] Performed By: #### 5 7021-8 #### [facility] CLIA [id number] [address] [place] [address] [place] MCV (RBC) [Entitic vol] 87.8 fL Normal 80.0-100.0 C [facility] Comment on above: Order Comment: Speci men Type: BLOOD SPECIMEN Ordering Facility: [facility] Address: [address] [place] [address] Performed By: #### 5 7021-8 #### [facility] CLIA [id number] [address] [place] [address] [place] Monocytes (Bld) [#/Vol] 0.65 10*3/uL Normal <0.87 [facility] Comment on above: Order Comment: Speci men Type: BLOOD SPECIMEN Ordering Facility: [facility] Address: [address] [place], [place] [address] Performed By: #### 5 7021-8 #### [facility] CLIA [id number] [address] [place] [address] [place] Monocytes/100 WBC (Bld) 11.2 % Normal C [facility] Comment on above: Order Comment: Speci men Type: BLOOD SPECIMEN Ordering Facility: [facility] Address: [address] [place] [address] Performed By: #### 5 7021-8 #### [facility] CLIA [id number] [address] [place] [address] [place] Neutrophils (Bld) [#/Vol] 3.05 10*3/uL Normal 1.45-7.50 [facility] Comment on above: Order Comment: Speci men Type: BLOOD SPECIMEN Ordering Facility: [facility] Address: [address] [place], [place] [address] Performed By: #### 5 7021-8 #### [facility] CLIA [id number] [address] [place] [address] [place] Neutrophils/100 WBC (Bld) 52.8 % Normal [facility] Comment on above: Order Comment: Speci men Type: BLOOD SPECIMEN Ordering Facility: [facility] Address: [address] [place], [place] [address] Performed By: #### 5 7021-8 #### [facility] CLIA [id number] [address] [place] [address] [place] Nucleated RBC (Bld) [#/Vol] 10*3/uL Normal <0.01 [facility] Comment on above: Order Comment: Speci men Type: BLOOD SPECIMEN Ordering Facility: [facility] Address: [address] [place] [address] Performed By: #### 5 7021-8 #### [facility] CLIA [id number] [address] [place] [address] [place] Nucleated RBC/100 WBC (Bld) [Ratio] 0.0 /100 WBC Normal [facility] Comment on above: Order Comment: Speci men Type: BLOOD SPECIMEN Ordering Facility: [facility] Address: [address] [place] [address] Performed By: #### 5 7021-8 #### [facility] CLIA [id number] [address] [place] [address] [place] Platelet mean volume (Bld) [Entitic vol] 9.8 fL Normal 9.0-12.7 [facility] Comment on above: Order Comment: Speci men Type: BLOOD SPECIMEN Ordering Facility: [facility] Address: [address] [place] [address] Performed By: #### 5 7021-8 #### [facility] CLIA [id number] [address] [place] [address] [place] Platelets (Bld) [#/Vol] 159 10*3/uL Normal 150-400 [facility] Comment on above: Order Comment: Speci men Type: BLOOD SPECIMEN Ordering Facility: [facility] Address: [address] [place] [address] Performed By: #### 5 7021-8 #### [facility] CLIA [id number] [address] [place] [address] [place] RBC (Bld) [#/Vol] 4.93 10*6/uL Normal 4.20-6.00 [facility] Comment on above: Order Comment: Speci men Type: BLOOD SPECIMEN Ordering Facility: [facility] Address: [address] [place] [address] Performed By: #### 5 7021-8 #### [facility] CLIA [id number] [address] [place] [address] [place] WBC (Bld) [#/Vol] 5.78 10*3/uL Normal 3.70-11.00 [facility] Comment on above: Order Comment: Speci men Type: BLOOD SPECIMEN Ordering Facility: [facility] Address: [address] [place] [address] Performed By: #### 5 7021-8 #### [facility] CLIA [id number] [address] [place] [address] [place] Comprehensive metabolic 2000 panelon 11-12-2024 Albumin [Mass/Vol] 3.9 g/dL Normal 3.9-4.9 [facility] Comment on above: Order Comment: Speci men Type: BLOOD SPECIMEN Ordering Facility: [facility] Address: [address] [place], [place] [address] Performed By: #### 2 4323-8 #### [facility] CLIA [id number] [address] [place] [address] [place] ALP [Catalytic activity/Vol] 102 U/L Normal 38-113 [facility] Comment on above: Order Comment: Speci men Type: BLOOD SPECIMEN Ordering Facility: [facility] Address: [address] [place] [address] Performed By: #### 2 4323-8 #### [facility] CLIA [id number] [address] [place] [address] [place] ALT [Catalytic activity/Vol] 17 U/L Normal 10-54 [facility] Comment on above: Order Comment: Speci men Type: BLOOD SPECIMEN Ordering Facility: [facility] Address: [address] [place] [address] Performed By: #### 2 4323-8 #### [facility] CLIA [id number] [address] [place] [address] [place] Anion gap [Moles/Vol] 8 mmol/L Normal 8-15 [facility] Comment on above: Order Comment: Speci men Type: BLOOD SPECIMEN Ordering Facility: [facility] Address: [address] [place] [address] Performed By: #### 2 4323-8 #### [facility] CLIA [id number] [address] [place] [address] [place] AST [Catalytic activity/Vol] 15 U/L Normal 14-40 [facility] Comment on above: Order Comment: Speci men Type: BLOOD SPECIMEN Ordering Facility: [facility] Address: [address] [place] [address] Performed By: #### 2 4323-8 #### [facility] CLIA [id number] [address] [place] [address] [place] Bilirubin [Mass/Vol] 0.9 mg/dL Normal 0.2-1.3 [facility] Comment on above: Order Comment: Speci men Type: BLOOD SPECIMEN Ordering Facility: [facility] Address: [address] [place] [address] Performed By: #### 2 4323-8 #### [facility] CLIA [id number] [address] [place] [address] [place] Calcium [Mass/Vol] 8.5 mg/dL Normal 8.5-10.2 [facility] Comment on above: Order Comment: Speci men Type: BLOOD SPECIMEN Ordering Facility: [facility] Address: [address] [place] [address] Performed By: #### 2 4323-8 #### [facility] CLIA [id number] [address] [place] [address] [place] Chloride [Moles/Vol] 107 mmol/L Normal 98-107 [facility] Comment on above: Order Comment: Speci men Type: BLOOD SPECIMEN Ordering Facility: [facility] Address: [address] [place] [address] Performed By: #### 2 4323-8 #### [facility] CLIA [id number] [address] [place] [address] [place] CO2 [Moles/Vol] 22 mmol/L Normal 22-30 [facility] Comment on above: Order Comment: Speci men Type: BLOOD SPECIMEN Ordering Facility: [facility] Address: [address] [place] [address] Performed By: #### 2 4323-8 #### [facility] CLIA [id number] [address] [place] [address] [place] Creatinine [Mass/Vol] 0.92 mg/dL Normal 0.73-1.22 [facility] Comment on above: Order Comment: Speci men Type: BLOOD SPECIMEN Ordering Facility: [facility] Address: [address] [place] [address] Performed By: #### 2 4323-8 #### [facility] CLIA [id number] [address] [place] [address] [place] Creatinine and Glomerular filtration rate.predicted panel (S/P/Bld) 88 mL/min/1.73m??? Normal >=60 [facility] Comment on above: Order Comment: Speci men Type: BLOOD SPECIMEN Ordering Facility: [facility] Address: [address] [place] [address] Result Comment: Taylor mated Glomerular Filtration Rate [...] GFR. Performed By: #### 2 4323-8 #### [facility] [id number] [address] [place] [address] [place] Glucose [Mass/Vol] 136 mg/dL High 74-99 [facility] Comment on above: Order Comment: Speci men Type: BLOOD SPECIMEN Ordering Facility: [facility] Address: [address] [place], [place] [address] Result Comment: The [place] Diabetes Association (ADA) provides guidance for cutoff [...] Standards of Medical Care in Diabetes 2016, [place] Diabetes [employer]. Diabetes Care. 2016.39(Suppl 1). Performed By: #### 2 4323-8 #### [facility] [id number] [address] [place] [address] [place] Potassium [Moles/Vol] 4.1 mmol/L Normal 3.7-5.1 [facility] Comment on above: Order Comment: Speci men Type: BLOOD SPECIMEN Ordering Facility: [facility] Address: [address] [place] [address] Performed By: #### 2 4323-8 #### [facility] [id number] [address] [place] [address] [place] Protein [Mass/Vol] 6.0 g/dL Low 6.3-8.0 [facility] Comment on above: Order Comment: Speci men Type: BLOOD SPECIMEN Ordering Facility: [facility] Address: [address] [place], [place] [address] Performed By: #### 2 4323-8 #### [facility] CLIA [id number] [address] [place] [address] [place] Sodium [Moles/Vol] 137 mmol/L Normal 136-144 [facility] Comment on above: Order Comment: Speci men Type: BLOOD SPECIMEN Ordering Facility: [facility] Address: [address] [place] [address] Performed By: #### 2 4323-8 #### [facility] [id number] [address] [place] [address] [place] Urea nitrogen [Mass/Vol] 17 mg/dL Normal 9-24 [facility] Comment on above: Order Comment: Speci men Type: BLOOD SPECIMEN Ordering Facility: [facility] Address: [address] [place] [address] Performed By: #### 2 4323-8 #### [facility] [id number] [address] [place] [address] [place] HbA1c (Bld)on 11-12-2024 Average glucose Estimated from glycated hemoglobin (Bld) [Mass/Vol] 137 mg/dL Normal [facility] Comment on above: Order Comment: Speci men Type: BLOOD SPECIMEN Ordering Facility: [facility] Address: [address] [place] [address] Result Comment: eAG: (Estimated average glucose) is a calculated value from HgbA1c and is off premise service representative of the average blood glucose level in the last 2-3 month period. Performed By: #### 2 4323-8 #### [facility] [id number] [address] [place] [address] [place] HbA1c (Bld) [Mass fraction] 6.4 % High 4.3-5.6 [facility] Comment on above: Order Comment: Speci men Type: BLOOD SPECIMEN Ordering Facility: [facility] Address[place] [address] [place] [address] Result Comment: [facility] Diabetes Association guidelines indicate that patients with HgbA1c in the range 5.7-6.4% are at increased risk for development of diabetes, and intervention by lifestyle modification may be beneficial. HgbA1c greater or equal to 6.5% is considered diagnostic of diabetes. Performed By: #### 2 4323-8 #### [facility] CLIA [id number] [address] [place] [address] [place] Lipid 1996 panelon 5 Cholesterol [Mass/Vol] 130 mg/dL Normal <200 [facility] Comment on above: Order Comment: Becky almazan Type: BLOOD SPECIMEN Ordering Facility: [facility] Address: [address] [place] [address] Result Comment: <200 mg/dL, Desirable 200-239 mg/dL, Borderline high >239 mg/dL, High Performed By: #### 2 4323-8 #### [facility] CLIA [id number] [address] [place] [address] [place] Cholesterol in HDL [Mass/Vol] 37 mg/dL Low >39 [facility] Comment on above: Order Comment: Becky almazan Type: BLOOD SPECIMEN Ordering Facility: [facility] Address: [address] [place] [address] Result Comment: 40-5 9 mg/dL, Acceptable >59 mg/dL, High: Negative risk factor for coronary heart disease <40 mg/dL, Low: Positive risk factor for coronary heart disease Performed By: #### 2 4323-8 #### [facility] CLIA [id number] [address] [place] [address] [place] Cholesterol in LDL [Mass/Vol] 79 mg/dL Normal <100 [facility] Comment on above: Order Comment: Becky almazan Type: BLOOD SPECIMEN Ordering Facility: [facility] Address: [address] [place] [address] Result Comment: <100 mg/dL, Optimal 100-129 mg/dL, Near optimal/above optimal 130-159 mg/dL, Borderline high 160-189 mg/dL, High >189 mg/dL, Very high Secondary prevention optimal LDL Cholesterol levels are recommended to be <70 mg/dL LDL cholesterol is calculated using the Olguin-NIH equation. Performed By: #### 2 4323-8 #### [facility] CLIA [id number] [address] [place] [address] [place] Cholesterol in LDL/Cholesterol in HDL [Mass ratio] 2.14 {ratio} Normal <2.54 [facility] Comment on above: Order Comment: Becky almazan Type: BLOOD SPECIMEN Ordering Facility: [facility] Address: [address] [place] [address] Result Comment: Abhinav christie: 1. National Cholesterol Education Program ATP III Guideline At-A-Glance Quick Desk Reference: National Heart, Lung, and Blood [place]. National Institutes of Health. 2001: NIH Publication No. 01-3305. 2. An International Atherosclerosis Society position paper: global recommendations for the management of dyslipidemia: executive summary, Atherosclerosis. 2014: 232(2):410-413. Performed By: #### 2 4323-8 #### [id number] [address] [place] [address] [place] Cholesterol in VLDL [Mass/Vol] 11 mg/dL Normal <30 [facility] Comment on above: Order Comment: Becky almazan Type: BLOOD SPECIMEN Ordering Facility: [facility] Address: [address] [place] [address] Performed By: #### 2 4323-8 #### [facility] [id number] [address] [place] [address] [place] Cholesterol non HDL [Mass/Vol] 93 mg/dL Normal <130 [facility] Comment on above: Order Comment: Becky almazan Type: BLOOD SPECIMEN Ordering Facility: [facility] Address: [address] [place] [address] Result Comment: <130 mg/dL, Optimal 130-159 mg/dL, Near optimal/above optimal 160-189 mg/dL, Borderline high 190-219 mg/dL, High >219 mg/dL, Very high Secondary prevention optimal non HDL Cholesterol levels are recommended to be <100 mg/dL Performed By: #### 2 4323-8 #### [facility] CLIA [id number] [address] [place] [address] [place] Cholesterol.total/Choles terol in HDL [Mass ratio] 3.51 {ratio} Normal <5.10 [facility] Comment on above: Order Comment: Speci men Type: BLOOD SPECIMEN Ordering Facility: [facility] Address: [address] [place] [address] Performed By: #### 2 4323-8 #### [facility] CLIA [id number] [address] [place] [address] OF [facility] FASTING TIME 12 hrs Normal [facility] Comment on above: Order Comment: Speci men Type: BLOOD SPECIMEN Ordering Facility: [facility] Address: [address] [place] [address] Performed By: #### 2 4323-8 #### [facility] CLIA [id number] [address] [place] [address] OF [place] Triglyceride [Mass/Vol] 71 mg/dL Normal <150 C [facility] Comment on above: Order Comment: Speci men Type: BLOOD SPECIMEN Ordering Facility: [facility] Address: [address] [place] [address] Result Comment: <150 mg/dL, Normal 150-199 mg/dL, Borderline high 200-499 mg/dL, High >499 mg/dL, Very high Performed By: #### 2 4323-8 #### [facility] [id number] [address] [place] [address] [place] Cardiology Visit Reporton Cardiology Visit Report [facility] [address] [place] [address] OFFICE VISIT Date of Service: 06/24/24 MR#: [id number] Acct: [id number] Name: ALISSA CAPPS Rep #: [id number] : 1950 Provider: Dr. 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 Mean (more content not included)... Normal [facility] PVR ANK PRESS NANCY VAS LABon 06-05-2024 PVR ANK PRESS NANCY VAS LAB Non-Invasive Vascular Laboratory [facility] Lower Extremity Arterial Physiology Study Bilateral/Complete [...] ankle: Normal at rest. Technologist: Lilliana Winter RVT, [facility] Ordering physician: ALISSA GUTIERREZ Interpreting physician: Aravind Friedman MD, KELSEY Final CC [facility] Medical Image : [id number] csSISUID See Link below for Image Normal [facility] CNOVon 05-15-2024 CNOV Office Visit (JHONNY ) ALISSA CAPPS ([id number]) 1950 M Date Time Provider Department 05/15/24 [...] visual symptoms, low sugar/hypoglycemic reactions, weight loss/gain, lightheadedness/dizzin ess, and bowel changes/loose stools Follows a diabetic [...] CAD/CHF/HX of STEMI and YUKI: followed with [facility] cardiology on 12/13/2023. Switched from Brilinta to [...] gi upset: Yes Going to go to [employer] to work on weight. Had [facility] some [facility] but has since gained some back [...] 400 k/uL (more content not included)... Normal [facility] CBC W Auto Differential pane l (Bld)on 05-14-2024 Basophils (Bld) [#/Vol] 0.04 10*3/uL Normal <0.11 [facility] Comment on above: Order Comment: Speci men Type: BLOOD SPECIMEN Ordering Facility: [facility] Address: [address] [place] [address] Performed By: #### 2 4323-8 #### [facility] CLIA [id number] [address] [place] [address] [place] Basophils/100 WBC (Bld) 0.8 % Normal C [facility] Comment on above: Order Comment: Speci men Type: BLOOD SPECIMEN Ordering Facility: [facility] Address: [address] [place] [address] Performed By: #### 2 4323-8 #### [facility] CLIA [id number] [address] [place] [address] [place] Differential cell count method Nom (Bld) Auto Normal [facility] Comment on above: Order Comment: Speci men Type: BLOOD SPECIMEN Ordering Facility: [facility] Address: [address] [place] [address] Performed By: #### 2 4323-8 #### [facility] CLIA [id number] [address] [place] [address] [place] Eosinophils (Bld) [#/Vol] 0.16 10*3/uL Normal <0.46 [facility] Comment on above: Order Comment: Speci men Type: BLOOD SPECIMEN Ordering Facility: [facility] Address: [address] [place] [address] Performed By: #### 2 4323-8 #### [facility] CLIA [id number] [address] [place] [address] [place] Eosinophils/100 WBC (Bld) 3.1 % Normal [facility] Comment on above: Order Comment: Speci men Type: BLOOD SPECIMEN Ordering Facility: [facility] Address: [address] [place] [address] Performed By: #### 2 4323-8 #### [facility] CLIA [id number] [address] [place] [address] [place] Erythrocyte distribution width (RBC) [Ratio] 12.5 % Normal 11.5-15.0 [facility] Comment on above: Order Comment: Speci men Type: BLOOD SPECIMEN Ordering Facility: [facility] Address: [address] [place] [address] Performed By: #### 2 4323-8 #### [facility] CLIA [id number] [address] [place] [address] [place] Hematocrit (Bld) [Volume fraction] 43.3 % Normal 39.0-51.0 [facility] Comment on above: Order Comment: Speci men Type: BLOOD SPECIMEN Ordering Facility: [facility] Address: [address] [place] [address] Performed By: #### 2 4323-8 #### [facility] CLIA [id number] [address] [place] [address] [place] Hemoglobin (Bld) [Mass/Vol] 14.8 g/dL Normal 13.0-17.0 [facility] Comment on above: Order Comment: Speci men Type: BLOOD SPECIMEN Ordering Facility: [facility] Address: [address] [place] [address] Performed By: #### 2 4323-8 #### [facility] CLIA [id number] [address] [place] [address] [place] Immature granulocytes (Bld) [#/Vol] 10*3/uL Normal <0.10 [facility] Comment on above: Order Comment: Speci men Type: BLOOD SPECIMEN Ordering Facility: [facility] Address: [address] [place] [address] Performed By: #### 2 4323-8 #### [facility] CLIA [id number] [address] [place] [address] STATES [facility] Immature granulocytes/100 WBC (Bld) 0.2 % Normal [facility] Comment on above: Order Comment: Speci men Type: BLOOD SPECIMEN Ordering Facility: [facility] Address: [address] [place] [address] Performed By: #### 2 4323-8 #### [facility] CLIA [id number] [address] [place] [address] [place] Lymphocytes (Bld) [#/Vol] 1.61 10*3/uL Normal 1.00-4.00 [facility] Comment on above: Order Comment: Speci men Type: BLOOD SPECIMEN Ordering Facility: [facility] Address: [address] [place] [address] Performed By: #### 2 4323-8 #### [facility] CLIA [id number] [address] [place] [address] [place] Lymphocytes/100 WBC (Bld) 30.8 % Normal [facility] Comment on above: Order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 NORMAN ROSAS to Edwina Wong RN PCU. Results read back by same. Please Note: New Test Units and Gender Specific Reference Ranges. For more information see Policy Stat Procedure [place] High Sensitivity Troponin (TNIH) and attachments. Platelets bldOrdered By: Marlo Dow on 04-07-2023 Platelets (Bld) [#/Vol] 217 10*3/uL 150-450 [facility] Serum or plasma albumin osei urement (mass/volume)Ordered By: Indu Messer on 04-07-2023 Albumin [Mass/Vol] 3.2 g/dL 3.2-5.0 [facility] Serum or plasma albumin/glob ulin mass ratioOrdered By: Indu Messer on 04-07-2023 Albumin/Globulin [Mass ratio] 0.9 {ratio} 0.9-2.4 [facility] Serum or plasma calcium osei urement (mass/volume)Ordered By: Indu Messer on 04-07-2023 Calcium [Mass/Vol] 8.5 mg/dL 8.5-10.1 [facility] Serum or plasma creatinine m easurement (mass/volume)Ordered By: Indu Messer on 04-07-2023 Creatinine [Mass/Vol] 1.18 mg/dL 0.70-1.30 [facility] Comment on above: The validity of the calculated GFR & GFRAA in patients over 70 years has not been determined. Clinical correlation is essential. Serum or plasma urea nitroge n measurement (mass/volume)Ordered By: Indu Messer on 04-07-2023 Urea nitrogen [Mass/Vol] 15 mg/dL 7-18 [facility] Thin prep Papanicolaou smear with manual screeningOrdered By: Indu Messer on 04-07-2023 Thin prep Papanicolaou smear with manual screening 394 U/L 15- [facility] Thin prep Papanicolaou smear with manual screening 5 5-15 [facility] INR in Blood by Coagulation assayOrdered By: Nirmal Walter on 04-06-2023 INR Coag (Bld) [Relative time] 1.0 {INR} [facility] Laboratory - CoagulationOrde red By: Nirmal Walter on 04-06-2023 aPTT Coag (Bld) [Time] 28.7 s 24.1-36.2 [facility] PT Coag (PPP) [Time] 13.0 s 11.7-14.9 [facility] No Panel InformationOrdered By: Dion Sabillon on 04-06-2023 Activated Clotting Time 233 sec 74-137 [facility] No Panel InformationOrdered By: Nirmal Walter on 04-06-2023 D-Dimer Quantitative (PE/DVT) 0.86 FEU/ug/m 0.27-0.49 [facility] Comment on above: D-Dimer ELEVATED (>0 .49): Additional studies and clinicalassessments are indicated to conclude diagnosis of:Deep Vein Thrombosis (DVT) or Pulmonary Embolism (PE) SHOULDER COMPLETE RTon 01-04 SHOULDER COMPLETE RT [place] [id number] Patient: ALISSA CAPPS Phone#: : 1950 Age: 72 Gender: M Pt. Type: Out Account: [id number] Location: Ordering: [facility] Exam Date: 01/04/2023/13:22 Family Phys: SON RAMIREZ Charge Code: 923669 Physician: [place] Order #: [id number] Dose#: PROCEDURE: X-RAY SHOULDER COMPLETE RT MIN [...] Singh MD on 01/04/2023 at 13:39 Normal [facility] No Panel Informationon 04-29 [facility] Hemoglobin A1con 04-21-2021 Glucose [Mass/Vol] 137 mg/dL Normal [facility] Comment on above: Performed By: #### H BA1C #### [facility] Routine Lab [address] [place], [place] [address] HbA1c (Bld) [Mass fraction] 6.4 % High 4.3-5.6 [facility] Comment on above: Performed By: #### H BA1C #### [facility] Routine Lab [address] [place], [place] [address] NM PET/CT WHOLE BODY INITon 01-19-2021 NM PET/CT WHOLE BODY INIT * * *Final Report* * * DATE OF EXAM: Jan 19 2021 10:23AM MDP 0061 - NM PET/CT WHOLE BODY INIT / PROCEDURE REASON: R91.8-Lung nodules * * * * Physician Interpretation * * * * EXAMINATION: [id number] FDG PET/CT SCAN HISTORY: 70 year old [...] Max SUV 2.4 Liver: Max SUV 3.2 Squaring Machine Operator (topogram) images: No additional findings. NECK: Physiologic [...] 4. EXTREMITIES/SKELETON: No FDG avid neoplastic process.. Firearms Assembly Supervisor: PSCB Transcribe Date/Time: Jan 19 2021 10:45A Dictated by : EZEQUIEL SOLANO MD This examination was interpreted and the report reviewed and electronically signed by: TERRY SANDS MD on Jan 19 2021 11:45AM EST [id number] Normal [facility] Vital Signs Date Time Vital Sign Value Performing Clinician Facility 01-31-2025 07:27-0400 Body mass index (BMI) [Ratio] 35.9 kg/m2 Dr. Aleksandr Ramirez MD Work Phone: [facility] 01-31-2025 07:27-0400 Body temperature 97.3 [degF] Dr. Aleksandr Ramirez MD Work Phone: [facility] 01-31-2025 07:27-0400 Body weight 113.[address] Aleksandr Ramirez MD Work Phone: [facility] 01-31-2025 07:27-0400 Diastolic blood pressure 71 mm[Hg] Dr. Aleksandr Ramirez MD Work Phone: [phone] [place] [address] 01-31-2025 07:27-0400 Heart rate 60 /min Dr. Aleksandr Ramirez MD Work Phone: [phone] [place] [address] 01-31-2025 07:27-0400 Respiratory rate 20 /min Dr. Aleksandr Ramirez MD Work Phone: [phone] [place] [address] 01-31-2025 07:27-0400 SaO2% (BldA) [Mass fraction] 96 % Dr. Aleksandr Ramirez MD Work Phone: [phone] [place] [address] 01-31-2025 07:27-0400 Systolic blood pressure 141 mm[Hg] Dr. Aleksandr Ramirez MD Work Phone: [phone] [place] [address] 01-15-2025 00:28-0400 Body temperature 97.9 [degF] Dr. Aleksandr Ramirez MD Work Phone: [phone] [place] [address] 01-15-2025 00:28-0400 Diastolic blood pressure 75 mm[Hg] Dr. Aleksandr Ramirez MD Work Phone: [phone] [place] [address] 01-15-2025 00:28-0400 Heart rate 82 /min Dr. Aleksandr Ramirez MD Work Phone: [phone] [place] [address] 01-15-2025 00:28-0400 Respiratory rate 22 /min Dr. Aleksandr Ramirez MD Work Phone: [phone] [place] [address] 01-15-2025 00:28-0400 SaO2% (BldA) [Mass fraction] 95 % Dr. Aleksandr Ramirez MD Work Phone: [phone] [place] [address] 01-15-2025 00:28-0400 Systolic blood pressure 143 mm[Hg] Dr. Aleksandr Ramirez MD Work Phone: [phone] [place] [address] 01-14-2025 21:11-0400 Body height 177.[address] Aleksandr Ramirez MD Work Phone: [phone] [place] [address] 01-14-2025 21:11-0400 Body mass index (BMI) [Ratio] 36.5 kg/m2 Dr. Aleksandr Ramirez MD Work Phone: 0(606)874-428427 [place] [address] 01-14-2025 21:11-0400 Body weight 115.[address] Aleksandr Ramirez MD Work Phone: 6(202)461-713127 [place] [address] 12-11-2024 07:15-0400 Body height 177.[address] Aleksandr Ramirez MD Work Phone: 0(655)483-606527 [place] [address] 12-11-2024 07:15-0400 Body mass index (BMI) [Ratio] 35.9 kg/m2 Dr. Aleksandr Ramirez MD Work Phone: 5(387)105-198527 [place] [address] 12-11-2024 07:15-0400 Body weight 113.[address] Aleksandr Ramirez MD Work Phone: 5(423)966-938727 [place] [address] 12-11-2024 07:15-0400 Diastolic blood pressure 68 mm[Hg] Dr. Aleksandr Ramirez MD Work Phone: 7(301)480-169827 [place] [address] 12-11-2024 07:15-0400 Heart rate 64 /min Dr. Aleksandr Ramirez MD Work Phone: 5(563)400-799827 [place] [address] 12-11-2024 07:15-0400 Respiratory rate 20 /min Dr. Aleksandr Ramirez MD Work Phone: 0(334)950-205527 [place] [address] 12-11-2024 07:15-0400 SaO2% (BldA) [Mass fraction] 94 % Dr. Aleksandr Ramirez MD Work Phone: 4(307)778-292427 [place] [address] 12-11-2024 07:15-0400 Systolic blood pressure 135 mm[Hg] Dr. Aleksandr Ramirez MD Work Phone: 2(483)001-503127 [place] [address] 11-13-2024 07:08-0400 Body height 175.3 cm Son Ramirez MD Work Phone: 5(288)713-880138 [place] [address] 11-13-2024 07:08-0400 Body mass index (BMI) [Ratio] 37.24 kg/m2 Son Ramirez MD Work Phone: [facility] 11-13-2024 07:08-0400 Body weight 114.4 kg Sno Ramirez MD Work Phone: [facility] 11-13-2024 07:08-0400 Diastolic blood pressure 62 mm[Hg] Son Ramirez MD Work Phone: [facility] 11-13-2024 07:08-0400 Heart rate 72 /min Son Ramirez MD Work Phone: [facility] 11-13-2024 07:08-0400 SaO2% (BldA) [Mass fraction] 95 % Son Ramirez MD Work Phone: [facility] 11-13-2024 07:08-0400 Systolic blood pressure 130 mm[Hg] Son Ramirez MD Work Phone: [facility] 05-15-2024 07:52-0500 Body mass index (BMI) [Ratio] 36.59 kg/m2 Umu Podlogar GLOBAL ACCOUNT DIRECTOR.HUMAN SERVICES INSTRUCTOR Work Phone: [facility] 05-15-2024 07:52-0500 Body weight 112.4 kg Umu Podlogar GLOBAL ACCOUNT DIRECTOR.HUMAN SERVICES INSTRUCTOR Work Phone: [facility] 05-15-2024 07:52-0500 Diastolic blood pressure 72 mm[Hg] Umu Podlogar GLOBAL ACCOUNT DIRECTOR.HUMAN SERVICES INSTRUCTOR Work Phone: [facility] 05-15-2024 07:52-0500 Heart rate 75 /min Umu Podlogar GLOBAL ACCOUNT DIRECTOR.HUMAN SERVICES INSTRUCTOR Work Phone: [facility] 05-15-2024 07:52-0500 Respiratory rate 18 /min Umu Podlogar GLOBAL ACCOUNT DIRECTOR.HUMAN SERVICES INSTRUCTOR Work Phone: [facility] 05-15-2024 07:52-0500 SaO2% (BldA) [Mass fraction] 94 % Umu Podlogar GLOBAL ACCOUNT DIRECTOR.HUMAN SERVICES INSTRUCTOR Work Phone: [facility] 05-15-2024 07:52-0500 Systolic blood pressure 134 mm[Hg] Umu Marquez APRN.CNP Work Phone: [facility] 11-14-2023 08:30-0400 Diastolic blood pressure 64 mm[Hg] Son Ramirez MD Work Phone: [facility] Comment on above: recheck 11-14-2023 08:30-0400 Systolic blood pressure 130 mm[Hg] Son Ramirez MD Work Phone: [facility] Comment on above: recheck 11-14-2023 07:52-0400 Body mass index (BMI) [Ratio] 34.44 kg/m2 Son Ramirez MD Work Phone: [facility] 11-14-2023 07:52-0400 Body weight 105.78 kg Son Ramirez MD Work Phone: [facility] 11-14-2023 07:52-0400 Heart rate 64 /min Son Ramirez MD Work Phone: [facility] Comment on above: home cuff 66 11-14-2023 07:52-0400 Respiratory rate 16 /min Son Ramirez MD Work Phone: [facility] 11-14-2023 07:52-0400 SaO2% (BldA) [Mass fraction] 97 % Son Ramirez MD Work Phone: [facility] 08-28-2023 00:44-0400 Body weight 107.[address] Aleksandr Ramirez Work Phone: [facility] 07-28-2023 09:24-0500 Body height 177.[address] Aleksandr Ramirez Work Phone: [facility] 07-28-2023 09:24-0500 Body weight 107.[address] Aleksandr Ramirez Work Phone: [facility] 06-30-2023 09:25-0500 Body height 177.[address] Aleksandr Ramirez Work Phone: [facility] 06-30-2023 09:25-0500 Body weight 107.[address] Aleksandr Ramirez Work Phone: 2(541)386-831427 [place] [address] 06-12-2023 09:44-0500 Body height 177.[address] Aleksandr Ramirez Work Phone: 1(791)541-020027 [place] [address] 06-12-2023 09:44-0500 Body mass index (BMI) [Ratio] 34.7 kg/m2 Dr. Aleksandr Ramirez Work Phone: 5(517)173-462827 [place] [address] 06-12-2023 09:44-0500 Body weight 109.[address] Aleksandr Ramirez Work Phone: 5(320)748-819927 [place] [address] 06-12-2023 09:44-0500 Diastolic blood pressure 77 mm[Hg] Dr. Aleksandr Ramirez Work Phone: 5(099)968-454627 [place] [address] 06-12-2023 09:44-0500 Heart rate 68 /min Dr. Aleksandr Ramirez Work Phone: 1(773)961-645027 [place] [address] 06-12-2023 09:44-0500 Respiratory rate 18 /min Dr. Aleksandr Ramirez Work Phone: 9(070)346-875627 [place] [address] 06-12-2023 09:44-0500 Systolic blood pressure 132 mm[Hg] Dr. Aleksandr Ramirez Work Phone: 8(758)966-857927 [place] [address] 05-31-2023 14:17-0500 Body mass index (BMI) [Ratio] 36.1 kg/m2 Dr. Aleksandr Ramirez Work Phone: 7(288)754-841227 [place] [address] 05-31-2023 13:16-0500 Body weight 114.[address] Aleksandr Ramirez Work Phone: 5(919)808-873527 [place] [address] 05-31-2023 13:07-0500 Diastolic blood pressure 79 mm[Hg] Dr. Aleksandr Ramirez Work Phone: 2(697)189-036427 [place] [address] 05-31-2023 13:07-0500 Heart rate 79 /min Dr. Aleksandr Ramirez Work Phone: 0(258)623-059527 [place] [address] 05-31-2023 13:07-0500 SaO2% (BldA) [Mass fraction] 95 % Dr. Aleksandr Ramirez Work Phone: 2(727)178-346327 [place] [address] 05-31-2023 13:07-0500 Systolic blood pressure 133 mm[Hg] Dr. Aleksandr Ramirez Work Phone: 4(184)242-902027 [place] [address] 05-12-2023 14:53-0500 Body temperature 98.7 [degF] Dr. Aleksandr Ramirez Work Phone: 1(705)515-425127 [place] [address] 05-12-2023 14:53-0500 Diastolic blood pressure 86 mm[Hg] Dr. Aleksandr Ramirez Work Phone: 8(757)912-512627 [place] [address] 05-12-2023 14:53-0500 Heart rate 72 /min Dr. Aleksandr Ramirez Work Phone: 1(622)550-639927 [place] [address] 05-12-2023 14:53-0500 Respiratory rate 16 /min Dr. Aleksandr Ramirez Work Phone: 9(275)604-686227 [place] [address] 05-12-2023 14:53-0500 SaO2% (BldA) [Mass fraction] 100 % Dr. Aleksandr Ramirez Work Phone: 8(268)024-386027 [place] [address] 05-12-2023 14:53-0500 Systolic blood pressure 154 mm[Hg] Dr. Aleksandr Ramirez Work Phone: 7(800)698-828627 [place] [address] 05-11-2023 15:57-0500 Body height 177.[address] Aleksandr Ramirez Work Phone: 3(661)170-297527 [place] [address] 05-11-2023 15:57-0500 Body mass index (BMI) [Ratio] 35.5 kg/m2 Dr. Aleksandr Ramirez Work Phone: 8(398)690-884927 [place] [address] 05-11-2023 15:57-0500 Body weight 112.[address] Aleksandr Ramirez Work Phone: 6(489)082-184627 [place] [address] 05-02-2023 14:06-0500 Body height [address] Aleksandr Ramirez Work Phone: 5(870)904-323327 [place] [address] 05-02-2023 14:06-0500 Body mass index (BMI) [Ratio] 38.2 kg/m2 Dr. Aleksandr Ramirez Work Phone: 1(132)295-478227 [place] [address] 05-02-2023 14:06-0500 Body weight 114.[address] Aleksandr Ramirez Work Phone: 5(851)489-538327 [place] [address] 05-02-2023 14:06-0500 Diastolic blood pressure 79 mm[Hg] Dr. Aleksandr Ramirez Work Phone: 4(798)650-310027 [place] [address] 05-02-2023 14:06-0500 Heart rate 79 /min Dr. Aleksandr Ramirez Work Phone: 3(811)378-296727 [place] [address] 05-02-2023 14:06-0500 Respiratory rate 18 /min Dr. Aleksandr Ramirez Work Phone: 0(772)110-180327 [place] [address] 05-02-2023 14:06-0500 SaO2% (BldA) [Mass fraction] 95 % Dr. Aleksandr Ramirez Work Phone: 3(558)743-027827 [place] [address] 05-02-2023 14:06-0500 Systolic blood pressure 133 mm[Hg] Dr. Aleksandr Ramirez Work Phone: 1(867)267-206427 [place] [address] 04-17-2023 09:57-0500 Body weight 114.49 kg Son Ramirez MD Work Phone: 0(695)404-489019 [place] [address] 04-17-2023 09:57-0500 Diastolic blood pressure 70 mm[Hg] Son Ramirez MD Work Phone: 5(742)970-521219 [place] [address] 04-17-2023 09:57-0500 Heart rate 76 /min Son Ramirez MD Work Phone: 6(926)800-958219 [place] [address] 04-17-2023 09:57-0500 Respiratory rate 16 /min Son Ramirez MD Work Phone: [facility] 04-17-2023 09:57-0500 SaO2% (BldA) [Mass fraction] 95 % Son Ramirez MD Work Phone: 7(371)415-305719 [place] [address] 04-17-2023 09:57-0500 Systolic blood pressure 128 mm[Hg] Son Ramirez MD Work Phone: [facility] 04-08-2023 11:06-0500 Inhaled oxygen flow rate 0 L/min Dr. Aleksandr Ramirez Work Phone: [facility] 04-08-2023 11:06-0500 SaO2% (BldA) [Mass fraction] 97 % Dr. Aleksandr Ramirez Work Phone: 5(831)919-829762 [place] [address] 04-08-2023 08:27-0500 Body temperature 98.3 [degF] Dr. Aleksandr Ramirez Work Phone: 4(481)164-609627 [place] [address] 04-08-2023 08:27-0500 Diastolic blood pressure 87 mm[Hg] Dr. Aleksandr Ramirez Work Phone: 3(250)644-574227 [place] [address] 04-08-2023 08:27-0500 Heart rate 78 /min Dr. Aleksandr Ramirez Work Phone: 9(860)180-786662 [place] [address] 04-08-2023 08:27-0500 Respiratory rate 18 /min Dr. Aleksandr Ramirez Work Phone: 1(643)126-134527 [place] [address] 04-08-2023 08:27-0500 Systolic blood pressure 141 mm[Hg] Dr. Aleksandr Ramirez Work Phone: 5(750)894-434262 [place] [address] 04-07-2023 14:53-0500 Body height [address] Aleksandr Ramirez Work Phone: 0(251)357-828762 [place] [address] 04-07-2023 14:53-0500 Body weight 116.[address] Aleksandr Ramirez Work Phone: 0(964)276-157127 [place] [address] 04-06-2023 17:11-0500 Body mass index (BMI) [Ratio] 38.9 kg/m2 Dr. Aleksandr Ramirez Work Phone: 8(997)306-206162 [place] [address] 04-18-2022 09:24-0500 Diastolic blood pressure 76 mm[Hg] Son Ramirez MD Work Phone: [facility] 04-18-2022 09:24-0500 Systolic blood pressure 136 mm[Hg] Son Ramirez MD Work Phone: [facility] 04-18-2022 08:44-0500 Body weight 117.48 kg Son Ramirez MD Work Phone: [facility] 04-18-2022 08:44-0500 Heart rate 75 /min Son Ramirez MD Work Phone: [facility] 04-18-2022 08:44-0500 Respiratory rate 16 /min Son Ramirez MD Work Phone: [facility] 04-18-2022 08:44-0500 SaO2% (BldA) [Mass fraction] 97 % Son Ramirez MD Work Phone: [facility] 10-15-2021 09:18-0400 Body weight 117.12 kg Son Ramirez MD Work Phone: [facility] 10-15-2021 09:18-0400 Diastolic blood pressure 82 mm[Hg] Son Ramirez MD Work Phone: [facility] 10-15-2021 09:18-0400 Heart rate 88 /min Son Ramirez MD Work Phone: [facility] 10-15-2021 09:18-0400 Respiratory rate 16 /min Son Ramirez MD Work Phone: [facility] 10-15-2021 09:18-0400 SaO2% (BldA) [Mass fraction] 96 % Son Ramirez MD Work Phone: [facility] 10-15-2021 09:18-0400 Systolic blood pressure 132 mm[Hg] Son Ramirez MD Work Phone: [facility] 08-27-2021 09:58-0400 Body temperature 97.39 [degF] Angelika Torres APRN.HUMAN SERVICES INSTRUCTOR Work Phone: [facility] 08-27-2021 09:58-0400 Body weight 117.75 kg Angelika Torres APRN.HUMAN SERVICES INSTRUCTOR Work Phone: [facility] 08-27-2021 09:58-0400 Diastolic blood pressure 84 mm[Hg] Angelika Brian BARRERA.HUMAN SERVICES INSTRUCTOR Work Phone: [facility] 08-27-2021 09:58-0400 Heart rate 89 /min Angelika Brian BARRERA.HUMAN SERVICES INSTRUCTOR Work Phone: [facility] 08-27-2021 09:58-0400 Respiratory rate 18 /min Angelika Brian BARRERA.HUMAN SERVICES INSTRUCTOR Work Phone: [facility] 08-27-2021 09:58-0400 SaO2% (BldA) [Mass fraction] 96 % Angelika Brian BARRERA.HUMAN SERVICES INSTRUCTOR Work Phone: [facility] 08-27-2021 09:58-0400 Systolic blood pressure 140 mm[Hg] Angelika Brian BARRERA.HUMAN SERVICES INSTRUCTOR Work Phone: [facility] Encounters Encounter Date Encounter Type Care Provider Facility Start: 02-24-2025 End: 02-24-2025 ambulatory Aleksandr Ramirez Facility:[facility] Start: 02-06-2025 End: 02-06-2025 ambulatory Guerline Rashid MA [facility] Start: 02-06-2025 End: 02-06-2025 Patient encounter procedure Guerline Rashid MA [facility] Comment on above: Population Health Na vigation Outreach ( [facility] Start: 01-31-2025 End: 01-31-2025 Patient encounter procedure ANN MARIE Snyder [facility] Work Phone: Start: 01-31-2025 End: 01-31-[address] Aleksandr Ramirez MD Work Phone: -[facility] Start: 01-22-2025 End: 01-22-[address] Aleksandr Ramirez MD Work Phone: -[facility] Start: 01-22-2025 End: 01-22-2025 Patient encounter procedure Gelacio MUSTAFA -[facility] Work Phone: Start: 01-22-2025 End: 01-22-2025 ambulatory Gelacio Barr Facility:[facility] Start: 01-14-2025 End: 01-15-2025 Emergency department patient visit Dr. Aleksanrd Ramirez MD Work Phone: -Emergency Department Work Phone: Start: 01-09-2025 End: 01-09-2025 Refill Son Ramirez MD Work Phone: [facility] Comment on above: Refill Request Start: 12-11-2024 End: 12-11-2024 Patient encounter procedure Gelacio Barr [facility] Work Phone: Start: 12-11-2024 End: 12-11-[address] Aleksandr Ramirez MD Work Phone: -[facility] Start: 11-13-2024 End: 01-13-2025 Follow-up encounter Gloria Bustos LPN [facility] Start: 11-13-2024 End: 11-13-2024 Patient encounter procedure Son Ramirez MD Work Phone: [facility] Comment on above: Primary hypertension (Primary Dx); Controlled type 2 diabetes mellitus without complication, without long-term current use of insulin (HCC); Diabetic polyneuropathy associated with type 2 diabetes mellitus (HCC); Coronary artery 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, unspecified vessel or lesion type; S/P angioplasty with stent; Systolic congestive heart failure, unspecified HF chronicity (HCC); Obesity, Class II, BMI 35-39.9; RAMOS (nonalcoholic steatohepatitis); Gastroesophageal reflux disease, unspecified whether esophagitis present Start: 11-13-2024 End: 11-13-2024 ambulatory SON RAMIREZ Facility:[facility] Start: 11-12-2024 End: 11-12-2024 ambulatory UMU PERKINSLOGKUSHAL Facility:[facility] Start: 06-24-2024 End: 06-24-2024 ambulatory Aleksandr Ramirez Facility:[facility] Start: 06-05-2024 End: 01-08-2025 ambulatory SON RAMIREZ Facility:[facility] Start: 05-15-2024 End: 05-15-2024 Patient encounter procedure Umu Marquez APRN.CNP Work Phone: [facility] [place] Comment on above: Controlled type 2 di abetes mellitus without complication, without long-term current use of insulin (HCC) (Primary Dx); Coronary artery 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, unspecified vessel or lesion type; Encounter for immunization; Mild nonproliferative diabetic retinopathy of both eyes without macular edema associated with type 2 diabetes mellitus (HCC); Primary hypertension; Hyperlipidemia, unspecified hyperlipidemia type; Thrombocytopenia (HCC); Obesity, Class II, BMI 35-39.9; S/P arterial stent Start: 05-15-2024 End: 05-15-2024 ambulatory SON RAMIREZ Facility:[facility] Start: 05-14-2024 End: 05-14-2024 ambulatory JOSIE Thalia RAMIREZ Facility:[facility] Start: 05-13-2024 End: 05-13-2024 Telephone encounter Son Ramirez MD Work Phone: [facility] [place] Comment on above: Lab Orders Start: 04-29-2024 End: 04-29-2024 ambulatory SON RAMIREZ Facility:[facility] Start: 04-29-2024 End: 04-29-2024 Patient encounter procedure Alissa Gutierrez Work Phone: Podiatry Comment on above: Diabetic polyneuropa thy associated with type 2 diabetes mellitus (HCC) (Primary Dx); Ingrowing toenail; Diminished pulses in lower extremity Start: 03-16-2024 End: 03-17-2024 Refill Son Ramirez MD Work Phone: [facility] [place] Comment on above: Refill Request Start: 01-10-2024 Refill Son Ramirez MD Work Phone: [facility] [place] Comment on above: Refill Request Start: 11-14-2023 End: 11-14-2023 Patient encounter procedure Son Ramirez MD Work Phone: [facility] [place] Comment on above: Controlled type 2 di abetes mellitus without complication, without long-term current use of insulin (HCC) (Primary Dx); Coronary artery 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, unspecified vessel or lesion type; Systolic congestive heart failure, unspecified HF chronicity (HCC); Primary hypertension; Hyperlipidemia, unspecified hyperlipidemia type; Encounter for immunization; Elevated alkaline phosphatase level; Mild nonproliferative diabetic retinopathy of both eyes without macular edema associated with type 2 diabetes mellitus (HCC) Start: 11-02-2023 Telephone encounter Aleksnadr Ramirez MD Work Phone: [facility] Comment on above: Patient Question Start: 08-28-2023 End: 09-26-[address] Aleksandr Ramirez Work Phone: [facility] Work Phone: Start: 08-28-2023 End: 09-26-[address] Aleksandr Ramirez Work Phone: [facility]Card[facility] Re[facility] Work Phone: Start: 08-25-2023 End: 08-27-[address] Aleksandr Ramirez Work Phone: [facility] Work Phone: Start: 08-25-2023 End: 08-27-[address] Aleksandr Ramirez Work Phone: [facility] Work Phone: Start: 08-11-[address] Yoel Ramirez Work Phone: [facility] Work Phone: Start: 08-09-2023 Non-patient / Non-visit Dr. Allyson Ramirez Work Phone: [facility] Start: 08-09-2023 End: 08-09-[address] Aleksandr Ramirez Work Phone: [facility] Work Phone: Start: 08-09-2023 End: 08-09-[address] Aleksandr Ramirez Work Phone: [facility] Work Phone: Start: 07-26-2023 End: 07-27-[address] Aleksandr Ramirez Work Phone: [facility] Work Phone: Start: 07-26-2023 End: 07-27-[address] Aleksandr Ramirez Work Phone: [facility] Work Phone: Start: 06-28-2023 End: 06-28-[address] Aleksandr Ramirez Work Phone: [facility] Work Phone: Start: 06-28-2023 End: 06-28-[address] Aleksandr Ramirez Work Phone: [facility]Card[facility] Work Phone: Start: 06-12-2023 End: 06-12-[address] Aleksandr Ramirez Work Phone: [facility] Work Phone: Start: 05-31-2023 End: 05-31-[address] Aleksandr Ramirez Work Phone: [facility] Work Phone: Start: 05-12-2023 Non-patient / Non-visit Dr. Allyson Ramirez Work Phone: [facility] Start: 05-11-2023 End: 05-12-2023 Evaluation and management of inpatient Dr. Aleksandr Ramirez Work Phone: [facility]-Progressive Care Unit Work Phone: Start: 05-11-2023 End: 05-12-[address] Aleksandr Ramirez Work Phone: [facility] Work Phone: Start: 05-11-2023 Non-patient / Non-visit Dr. Allyson Ramirez Work Phone: [facility] Start: 05-02-2023 End: 05-02-[address] Aleksandr Ramirez Work Phone: [facility] Work Phone: Start: 05-02-2023 End: 05-02-[address] Aleksandr Ramirez Work Phone: [facility]-Laboratory Work Phone: Start: 05-02-2023 End: 05-02-[address] Aleksandr Ramirez Work Phone: [facility] Work Phone: Start: 04-27-2023 End: 04-27-2023 Patient encounter procedure Alissa Brenda Work Phone: Podiatry Comment on above: Controlled type 2 di abetes mellitus without complication, without long-term current use of insulin ([facility]) (Primary Dx); Neuroma Start: 04-17-2023 End: 04-17-2023 Patient encounter procedure Son Ramirez MD Work Phone: [facility] Comment on above: NSTEMI (non-ST eleva baudilio myocardial infarction) ([facility]) (Primary Dx); Coronary artery 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, unspecified vessel or lesion type; S/P arterial stent; Chest pain, unspecified type; Systolic congestive heart failure, unspecified HF chronicity ([facility]); Essential hypertension; Controlled type 2 diabetes mellitus without complication, without long-term current use of insulin ([facility]); Mild nonproliferative diabetic retinopathy of both eyes without macular edema associated with type 2 diabetes mellitus ([facility]); Encounter for immunization Start: 04-11-2023 ambulatory Son Ramirez MD Work Phone: [facility] Start: 04-08-2023 Non-patient / Non-visit Dr. Allyson Ramirez Work Phone: [facility] Start: 04-08-2023 End: 04-08-2023 Non-patient / Non-visit Dr. Aleksandr Ramirez Work Phone: [facility] Work Phone: Start: 04-07-2023 Non-patient / Non-visit Dr. Allyson Ramirez Work Phone: [facility] Work Phone: Start: 04-07-2023 End: 04-07-2023 Non-patient / Non-visit Dr. Aleksandr Ramirez Work Phone: [facility] Work Phone: Start: 04-06-2023 Non-patient / Non-visit Dr. Allyson Ramirez Work Phone: [facility] Start: 04-06-2023 End: 04-08-2023 Evaluation and management of inpatient Dr. Aleksandr Ramirez Work Phone: [facility]-Progressive Care Unit Work Phone: Start: 02-15-2023 End: 02-15-[address] Aleksandr Ramirez Work Phone: [facility]-Physical Therapy Work Phone: Start: 01-04-2023 End: 01-04-2023 ambulatory SON RAMIREZ [facility] Start: 05-16-2022 Refill Son Ramirez MD Work Phone: [facility] Comment on above: Refill Request Start: 05-03-2022 Telephone encounter Aleksandr Ramirez MD Work Phone: [facility] Comment on above: Results Start: 04-29-2022 End: 04-29-2022 Subsequent hospital visit by physician [facility] Work Phone: Radiology Comment on above: Elevated alkaline ph osphatase level [R74.8] History of tobacco u se [Z87.891] Start: 04-26-2022 End: 04-26-2022 Subsequent hospital visit by physician [facility] Work Phone: Radiology Comment [...] insulin (HCC) Start: 04-20-2022 Telephone encounter Aleksandr Rmairez MD Work Phone: [facility] [place] Comment on above: Results Start: 04-18-2022 End: 04-18-2022 Patient encounter procedure Son Ramirez MD Work Phone: [facility] [place] Comment on above: Controlled type 2 [...] 11-11-2021 Refill Son Ramirez MD Work Phone: [facility] [place] Comment on above: Refill Request Start: 10-15-2021 End: 10-15-2021 Patient encounter procedure Son Ramirez MD Work Phone: [facility] [place] Comment on above: Controlled type 2 [...] Aleksandr Ramirez MD Work Phone: [facility] [place] Comment on above: Lab Orders Start: 08-27-2021 End: 08-27-2021 Patient encounter procedure Angelika Torres APRN.HUMAN SERVICES INSTRUCTOR Work Phone: [facility] Comment on above: Non-recurrent acute suppurative otitis media of right ear without spontaneous rupture of tympanic membrane (Primary Dx) Start: 08-26-2021 End: 08-26-2021 Discharged Recurring [facility]-Physical Therapy Start: 04-30-2021 End: 04-30-2021 Patient encounter procedure [facility]-Laboratory, Specimen Procedures Date Procedure Procedure Detail Performing Clinician Start: 01-14-2025 Urnls dip stick/tablet reagent auto microscopy Dr. Aleksandr Ramirez MD Work Phone: Start: 01-14-[address] Aleksandr Ramirez MD Work Phone: Start: 01-14-2025 CT of abdomen and pelvis without contrast Dr. Aleksandr Ramirez MD Work Phone: Start: 05-15-2024 [employer] COVID-19 VACCINE AGE 12+ YR (HITESH Marquez APRN.HUMAN SERVICES INSTRUCTOR Work Phone: Start: 04-17-2023 INFLUENZA VACCINE, PRSV FREE, AGE 65+ YR, HIGH DOSE, QUADRIVALENT (FLUZONE HIGH-DOSE) Son Ramirez MD Work Phone: Start: 04-17-2023 [employer] COVID-19 VACCINE (2022- SEASON) AGE 12+ YR [...] Work Phone: Start: 03-29-2021 Colonoscopy Angelika Torres APRN.HUMAN SERVICES INSTRUCTOR Work Phone: Start: 01-24-2021 Adult depression screening assessment Angelika Torres APRN.HUMAN SERVICES INSTRUCTOR Work Phone: History of repair of musculotendinous cuff of shoulder S/P left rotator cuff repair Son Ramirez MD Work Phone: Plan of Treatment Date Care Activity Detail Author Start: 03-29-2031 Colonoscopy COLONOSCOPY [facility] Start: 03-29-2031 COLORECTAL CANCER SCREENING COLORECTAL CANCER SCREENING [facility] Start: 03-29-2031 Screening for malign ant neoplasm of colon [facility] Start: 11-13-2025 Annual PCP Team Lead Installer marlo Disease Visit Annual PCP Team Chronic Disease Visit [facility] Start: 11-13-2025 Covid-19 Vaccine ( season) Covid-19 Vaccine ( season) [facility] Comment on above: Postponed from 11/13 (Declined at this time) Start: 11-13-2025 RSV Vaccine (1 - Ris k 60-74 years 1-dose series) RSV Vaccine (1 - Risk 60-74 years 1-dose series) [facility] Comment on above: Postponed from 09/05 (Declined at this time) Start: 11-13-2025 Shingrix Vaccine (1 of 2) Shingrix Vaccine (1 of 2) [facility] Comment on above: Postponed from 09/05 (Declined at this time) Start: 11-13-2025 Urine microalbumin profile DTaP,Tdap,Td Vaccine (1 - Tdap) [facility] Comment on above: Postponed from 05/11 /2018 (Declined at this time) Start: 11-12-2025 Hepatitis B screening Urine Al bumin:Creatinine Ratio [facility] Start: 11-12-2025 Hepatitis B surface antibody level LDL Cholesterol [facility] Start: 09-26-2025 Glaucoma screening Dilated Retinal E xam [facility] Start: 05-19-2025 End: 05-19-2025 Patient encounter procedure [facility] Comment on above: 6 month follow up MEDICARAE WELLNESS E EXAM Start: 05-15-2025 Annual PCP Team Lead Installer marlo Disease Visit Annual PCP Team Chronic Disease Visit [facility] Start: 05-14-2025 Hemoglobin A1c measurement HbA1C [facility] Start: 04-29-2025 Diabetic foot examination Diabetic Foot Exam [facility] Start: 02-13-2025 End: 05-15-2025 Comprehensive metabolic 2000 panel - Serum or Plasma COMPREHENSIVE METABOLIC PANEL Lab Routine Coronary artery 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, unspecified vessel or lesion type Expected: 02/13/2025, Expires: 05/15/2025 [facility] Comment on above: Expected: 02/13/2025 , Expires: 05/15/2025 Start: 02-13-2025 End: 05-15-2025 Lipid 1996 panel - Serum or Plasma LIPID PANEL, FASTING Lab Routine Coronary artery 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, unspecified vessel or lesion type Expected: 02/13/2025, Expires: 05/15/2025 [facility] Work Phone: Comment on above: Expected: 02/13/2025 , Expires: 05/15/2025 Start: 01-27-2025 Influenza vaccination Influenza Vacc ine (#1) [facility] Start: 01-15-2025 Polysomnography [facility] Start: 01-15-2025 [facility] Start: 11-13-2024 Annual PCP Team Lead Installer marlo Disease Visit Annual PCP Team Chronic Disease Visit [facility] Start: 11-13-2024 End: 02-12-2025 CBC W Auto Differential panel - Blood COMPLETE BLOOD COUNT AND DIFFERENTIAL Lab Routine Controlled type 2 diabetes mellitus without complication, without long-term current use of insulin (HCC) Thrombocytopenia (HCC) Expected: 11/13/2024, Expires: 02/12/2025 [facility] Comment on above: Expected: 11/13/2024 , Expires: 02/12/2025 Start: 11-13-2024 End: 02-12-2025 Comprehensive metabolic 2000 panel - Serum or Plasma COMPREHENSIVE METABOLIC PANEL Lab Routine Controlled type 2 diabetes mellitus without complication, without long-term current use of insulin (HCC) Primary hypertension Hyperlipidemia, unspecified hyperlipidemia type Expected: 11/13/2024, Expires: 02/12/2025 [facility] Comment on above: Expected: 11/13/2024 , Expires: 02/12/2025 Start: 11-13-2024 Covid-19 Vaccine () Covid-19 Vaccine () [facility] Comment on above: Postponed from 08/15 (Declined at this time) Start: 11-13-2024 End: 02-12-2025 Hemoglobin A1c in Blood HEMOGLOBIN A1C Lab Routine Controlled type 2 diabetes mellitus without complication, without long-term current use of insulin (HCC) Expected: 11/13/2024, Expires: 02/12/2025 [facility] Comment on above: Expected: 11/13/2024 , Expires: 02/12/2025 Start: 11-13-2024 End: 02-12-2025 Lipid 1996 panel - Serum or Plasma LIPID PANEL BASIC Lab Routine Hyperlipidemia, unspecified hyperlipidemia type Expected: 11/13/2024, Expires: 02/12/2025 [facility] Comment on above: Expected: 11/13/2024 , Expires: 02/12/2025 Start: 11-13-2024 End: 02-12-2025 Microalbumin/Creatinine [Mass Ratio] in Urine ALBUMIN/CREATININE RATIO, URINE Lab Routine Mild nonproliferative diabetic retinopathy of both eyes without macular edema associated with type 2 diabetes mellitus (HCC) Controlled type 2 diabetes mellitus without complication, without long-term current use of insulin (HCC) Expected: 11/13/2024, Expires: 02/12/2025 [facility] Work Phone: Comment on above: Expected: 11/13/2024 , Expires: 02/12/2025 Start: 11-13-2024 End: 11-13-2024 Patient encounter procedure 11/13/2024 7:20 AM EDT Office Visit [facility] [address] [place] [address] Son Ramirez MD [address] [place] [address] 6 month follow up [facility] Comment on above: 6 month follow up Start: 11-12-2024 Hemoglobin A1c measurement HbA1C [facility] Start: 11-08-2024 Hepatitis B surface antibody level LDL Cholesterol [facility] Start: 09-19-2024 Glaucoma screening Dilated Retinal E xam [facility] Start: 06-05-2024 End: 06-05-2024 Patient encounter procedure 06/05/2024 8:00 AM EST Office Visit Vasculary Surgery [address] [place] [address] Diminished pulses in lower extremity [R09.89] [facility] Comment on above: Diminished pulses in lower extremity [R09.89] Start: 05-29-2024 Advance Directive Discussion Advance Directive Discussion [facility] Start: 05-15-2024 Annual PCP Team Lead Installer marlo Disease Visit Annual PCP Team Chronic Disease Visit [facility] Start: 05-15-2024 BP Controlled (<130/80) BP Controlle d (<130/80) [facility] Start: 05-15-2024 End: 05-15-2024 Patient encounter procedure 05/15/2024 8:00 AM EST Office Visit [facility] [place] [address] [place] [address] [employer] APRN.HUMAN SERVICES INSTRUCTOR [address] [place] [address] 6 month follow up [facility] Comment on above: 6 month follow up Start: 05-13-2024 End: 08-12-2024 CBC W Auto Differential panel - Blood COMPLETE BLOOD COUNT AND DIFFERENTIAL Lab Routine Controlled type 2 diabetes mellitus without complication, without long-term current use of insulin (HCC) Expected: 05/13/2024, Expires: 08/12/2024 [facility] Comment on above: Expected: 05/13/2024 , Expires: 08/12/2024 Start: 05-13-2024 End: 08-12-2024 Comprehensive metabolic 2000 panel - Serum or Plasma COMPREHENSIVE METABOLIC PANEL Lab Routine Controlled type 2 diabetes mellitus without complication, without long-term current use of insulin (HCC) Expected: 05/13/2024, Expires: 08/12/2024 [facility] Work Phone: Comment on above: Expected: 05/13/2024 , Expires: 08/12/2024 Start: 05-13-2024 End: 08-12-2024 Hemoglobin A1c in Blood HEMOGLOBIN A1C Lab Routine Controlled type 2 diabetes mellitus without complication, without long-term current use of insulin (HCC) Expected: 05/13/2024, Expires: 08/12/2024 [facility] Comment on above: Expected: 05/13/2024 , Expires: 08/12/2024 Start: 05-10-2024 Hemoglobin A1c measurement HbA1C [facility] Start: 04-29-2024 End: 04-29-2024 Patient encounter procedure 04/29/2024 8:00 AM EST Office Visit Podiatry [address] [place], [place] [id number] Alissa Gutierrez [address] [place] [address] 1 year follow up diabeti foot exam Podiatry Comment on above: 1 year follow up oriana jean claude foot exam Start: 04-27-2024 3 comp foot exam completed Diabetic Foot Exam [facility] Start: 04-27-2024 Diabetic foot examination Diabetic Foot Exam [facility] Start: 04-17-2024 Annual PCP Team Lead Installer marlo Disease Visit Annual PCP Team Chronic Disease Visit [facility] Start: 04-17-2024 BP Controlled (<130/80) BP Controlle d (<130/80) [facility] Start: 04-17-2024 Hepatitis B screening Urine Al bumin:Creatinine Ratio [facility] Start: 04-17-2024 RSV Vaccine (1 - 1-d ose 60+ series) RSV Vaccine (1 - 1-dose 60+ series) [facility] Comment on above: Postponed from 09/05 (Declined at this time) Start: 04-17-2024 RSV Vaccine (1 - Ris k 60-74 years 1-dose series) RSV Vaccine (1 - Risk 60-74 years 1-dose series) [facility] Comment on above: Postponed from 09/05 (Declined at this time) Start: 04-17-2024 Shingrix Vaccine (1 of 2) Shingrix Vaccine (1 of 2) [facility] Comment on above: Postponed from 09/05 (Declined at this time) Start: 04-17-2024 Urine microalbumin profile DTaP,Tdap,Td Vaccine (1 - Tdap) [facility] Comment on above: Postponed from 10/06 (Declined at this time) Start: 01-28-2024 Covid-19 Vaccine ( season) Covid-19 Vaccine () [facility] Start: 01-28-2024 Influenza vaccination Influenza Vacc ine (#1) [facility] Start: 12-14-2023 End: 03-14-2024 ALK PHOS ISOENZYM BL ALK PHOS ISOENZYM BL Lab Routine Elevated alkaline phosphatase level Expected: 12/14/2023, Expires: 03/14/2024 [facility] Comment on above: Expected: 12/14/2023 , Expires: 03/14/2024 Start: 12-14-2023 End: 03-14-2024 Comprehensive metabolic 2000 panel - Serum or Plasma COMPREHENSIVE METABOLIC PANEL Lab Routine Elevated alkaline phosphatase level Expected: 12/14/2023, Expires: 03/14/2024 [facility] Work Phone: Comment on above: Expected: 12/14/2023 , Expires: 03/14/2024 Start: 12-14-2023 End: 03-14-2024 Gamma glutamyl transferase [Enzymatic activity/volume] in Serum or Plasma GGT Lab Routine Elevated alkaline phosphatase level Expected: 12/14/2023, Expires: 03/14/2024 [facility] Comment on above: Expected: 12/14/2023 , Expires: 03/14/2024 Start: 11-14-2023 End: 11-14-2023 Patient encounter procedure 11/14/2023 8:00 AM EDT Office Visit [facility] [place] [address] [place] [address] Son Ramirez MD [address] [place] [address] 6 month follow up [facility] [place] Comment on above: 6 month follow up Start: 10-18-2023 Annual PCP Team Lead Installer marlo Disease Visit Annual PCP Team Chronic Disease Visit [facility] Start: 10-18-2023 BP Controlled (<130/80) BP Controlle d (<130/80) [facility] Start: 10-18-2023 Hepatitis B surface antibody level LDL Cholesterol [facility] Start: 10-16-2023 Hemoglobin A1c measurement HbA1C [facility] Start: 10-16-2023 Hemoglobin A1c/Hemoglobin.total in Blood HbA1C [facility] Start: 09-23-2023 Hepatitis C antibody , confirmatory test Dilated Retinal Exam [facility] Start: 08-16-2023 Covid-19 Vaccine () Covid-19 Vaccine () [facility] Start: 05-29-2023 Advance Directive Discussion Advance Directive Discussion [facility] Start: 05-29-2023 Behavioral Health Screening Behavioral Health Screening [facility] Start: 05-12-2023 Patient discharge [facility] Start: 05-11-2023 Care planning and problem solving actions [facility] Start: 05-11-[address] [facility] Start: 05-11-2023 Cardiac rehabilitati on - phase 1 [facility] Start: 05-11-2023 Cardiac rehabilitati on - phase 2 [facility] Start: 05-11-2023 Oxygen therapy [facility] Start: 05-11-2023 Patient discharge [facility] Start: 05-11-2023 Systemic arterial pressure monitoring [facility] Start: 05-11-2023 Vascular disease ris k assessment [facility] Start: 05-11-2023 Vital signs measurements [facility] Start: 05-11-2023 End: 05-11-2023 [facility] Start: 05-11-2023 Following clinical pathway protocol [facility] Start: 05-11-2023 Admission procedure [facility] Start: 05-11-2023 End: 05-11-2023 Notification of physician [facility] Start: 05-11-2023 Patient education [facility] Start: 05-11-2023 Provision of activit y privileges [facility] Start: 05-11-2023 Pulse taking [facility] Start: 05-11-2023 End: 05-11-2023 Taking patient vital signs [facility] Start: 05-11-2023 Wound care [facility] Start: 05-11-2023 Assessment of risk o f venous thromboembolism [facility] Start: 05-11-2023 Insertion of cathete r into peripheral vein [facility] Start: 05-11-2023 Measuring intake and output [facility] Start: 05-11-2023 Providing care accor ding to standard [facility] Start: 05-11-2023 Patient referral [facility] Work Phone: Start: 05-11-2023 Cardiac rehabilitati on - phase 1 [facility] Start: 05-11-2023 Cardiac rehabilitati on - phase 2 [facility] Start: 04-19-2023 Hemoglobin A1c/Hemoglobin.total in Blood HbA1C [facility] Start: 04-18-2023 3 comp foot exam completed DIABETIC FOOT EXAM [facility] Start: 04-18-2023 ANNUAL PCP TEAM PAPER BAGS SEWING MACHINE OPERATOR MARLO DISEASE VISIT ANNUAL PCP TEAM CHRONIC DISEASE VISIT [facility] Start: 04-14-2023 Hepatitis B screening URINE AL BUMIN:CREATININE RATIO [facility] Start: 04-08-2023 Patient discharge [facility] Start: 04-06-2023 Ambulation without limitation [facility] Start: 04-06-2023 Assessment of risk o f venous thromboembolism [facility] Start: 04-06-[address] [facility] Start: 04-06-2023 Cardiac rehabilitati on - phase 1 [facility] Start: 04-06-2023 Cardiac rehabilitati on - phase 2 [facility] Start: 04-06-2023 Care regimes management [facility] Start: 04-06-2023 Insertion of cathete r into peripheral vein [facility] Start: 04-06-2023 Measuring intake and output [facility] Start: 04-06-2023 Notification of physician [facility] Start: 04-06-2023 Oxygen therapy [facility] Start: 04-06-2023 Patient discharge [facility] Start: 04-06-2023 Patient education [facility] Start: 04-06-2023 Providing care accor ding to standard [facility] Start: 04-06-2023 Provision of activit y privileges [facility] Start: 04-06-2023 Pulse taking [facility] Start: 04-06-2023 Referral to plant protection supervisor [facility] Start: 04-06-2023 Systemic arterial pressure monitoring [facility] Start: 04-06-2023 Taking patient vital signs [facility] Start: 04-06-2023 Vascular disease ris k assessment [facility] Start: 04-06-2023 Vital signs measurements [facility] Start: 04-06-2023 Wound care [facility] Start: 04-06-2023 [facility] Start: 04-06-2023 Admission procedure [facility] Start: 01-27-2023 Covid-19 Vaccine () Covid-19 Vaccine () [facility] Start: 01-27-2023 Influenza vaccination Influenza Vacc ine (#1) [facility] Start: 10-15-2022 ANNUAL PCP TEAM PAPER BAGS SEWING MACHINE OPERATOR MARLO DISEASE VISIT ANNUAL PCP TEAM CHRONIC DISEASE VISIT [facility] Start: 10-15-2022 Urine microalbumin profile DTAP,TDAP,TD (1 - Tdap) [facility] Comment on above: Postponed from 10/06 (Declined at this time) Start: 10-13-2022 Hepatitis B surface antibody level LDL CHOLESTEROL [facility] Start: 10-12-2022 Hemoglobin A1c/Hemoglobin.total in Blood HBA1C [facility] Start: 09-09-2022 Hepatitis C antibody , confirmatory test DILATED RETINAL EXAM [facility] Start: 05-29-2022 ADVANCE DIRECTIVE DISCUSSION ADVANCE DIRECTIVE DISCUSSION [facility] Start: 05-29-2022 DEPRESSION ASSESSMENT DEPRESSION ASS ESSMENT [facility] Start: 04-22-2022 End: 06-22-2022 ALBUMIN/CREAT RATIO RND UR ALBUMIN/CREAT RATIO RND UR Lab Routine Controlled type 2 diabetes mellitus without complication, without long-term current use of insulin (HCC) Expected: 04/22/2022, Expires: 06/22/2022 [facility] Work Phone: Comment on above: Expected: 04/22/2022 , Expires: 06/22/2022 Start: 04-22-2022 End: 06-22-2022 Comprehensive metabolic 2000 panel - Serum or Plasma COMP METABOLIC PANEL Lab Routine Controlled type 2 diabetes mellitus without complication, without long-term current use of insulin (HCC) Expected: 04/22/2022, Expires: 06/22/2022 [facility] Work Phone: Comment on above: Expected: 04/22/2022 , Expires: 06/22/2022 Start: 04-22-2022 End: 06-22-2022 Hemoglobin A1c/Hemoglobin.total in Blood HGB A1C Lab Routine Controlled type 2 diabetes mellitus without complication, without long-term current use of insulin (HCC) Expected: 04/22/2022, Expires: 06/22/2022 [facility] Work Phone: Comment on above: Expected: 04/22/2022 , Expires: 06/22/2022 Start: 04-19-2022 PROSTATE CANCER SCREENING DISCUSSION PROSTATE CANCER SCREENING DISCUSSION [facility] Start: 04-18-2022 End: 06-18-2022 ALK PHOS ISOENZYM BL [facility] Work Phone: Comment on above: Expected: 04/18/2022 , Expires: 06/18/2022 Start: 04-18-2022 End: 06-18-2022 Gamma glutamyl transferase [Enzymatic activity/volume] in Serum or Plasma [facility] Work Phone: Comment on above: Expected: 04/18/2022 , Expires: 06/18/2022 Start: 04-16-2022 3 comp foot exam completed DIABETIC FOOT EXAM [facility] Start: 04-16-2022 ANNUAL PCP TEAM PAPER BAGS SEWING MACHINE OPERATOR MARLO DISEASE VISIT ANNUAL PCP TEAM CHRONIC DISEASE VISIT [facility] Start: 04-16-2022 Hepatitis B screening URINE AL BUMIN:CREATININE RATIO [facility] Start: 04-16-2022 Hepatitis B surface antibody level LDL CHOLESTEROL [facility] Start: 04-15-2022 Hemoglobin A1c/Hemoglobin.total in Blood HBA1C [facility] Start: 01-24-2022 Adult depression screening assessment DEPRESSION SCREENING [facility] Start: 10-14-2021 Hemoglobin A1c/Hemoglobin.total in Blood HBA1C [facility] Start: 10-11-2021 End: 12-11-2021 CBC W Auto Differential panel - Blood CBC + DIFF Lab Routine Controlled type 2 diabetes mellitus without complication, without long-term current use of insulin (HCC) Expected: 10/11/2021, Expires: 12/11/2021 [facility] Work Phone: Comment on above: Expected: 10/11/2021 , Expires: 12/11/2021 Start: 10-11-2021 End: 12-11-2021 Comprehensive metabolic 2000 panel - Serum or Plasma COMP METABOLIC PANEL Lab Routine Acute pancreatitis without infection or necrosis, unspecified pancreatitis type Expected: 10/11/2021, Expires: 12/11/2021 [facility] Work Phone: Comment on above: Expected: 10/11/2021 , Expires: 12/11/2021 Start: 10-11-2021 End: 12-11-2021 Hemoglobin A1c/Hemoglobin.total in Blood HGB A1C Lab Routine Controlled type 2 diabetes mellitus without complication, without long-term current use of insulin (HCC) Expected: 10/11/2021, Expires: 12/11/2021 [facility] Work Phone: Comment on above: Expected: 10/11/2021 , Expires: 12/11/2021 Start: 10-11-2021 End: 12-11-2021 LIPID PANEL BASIC LIPID PANEL BASIC Lab Routine Controlled type 2 diabetes mellitus without complication, without long-term current use of insulin (HCC) Expected: 10/11/2021, Expires: 12/11/2021 [facility] Work Phone: Comment on above: Expected: 10/11/2021 , Expires: 12/11/2021 Start: 07-31-2021 COVID-19 VACCINE (4 - Booster for Moderna series) COVID-19 VACCINE (4 - Booster for Moderna series) [facility] Start: 05-29-2021 ADVANCE DIRECTIVE DISCUSSION ADVANCE DIRECTIVE DISCUSSION [facility] Start: 05-29-2021 DEPRESSION ASSESSMENT DEPRESSION ASS ESSMENT [facility] Start: 05-20-2021 Hepatitis C antibody , confirmatory test DILATED RETINAL EXAM [facility] Start: 10-15-2019 Hepatitis B Vaccine (3 of 3 - Risk 3-dose series) Hepatitis B Vaccine (3 of 3 - Risk 3-dose series) [facility] Start: 10-06-2017 Urine microalbumin profile [facility] Start: 08-27-2017 Medicare Annual Well ness Visit Medicare Annual Wellness Visit [facility] Start: 2012 RSV Vaccine (1 - 1-d ose 60+ series) RSV Vaccine (1 - 1-dose 60+ series) [facility] Start: 2012 RSV Vaccine (1 - Ris k 60-74 years 1-dose series) RSV Vaccine (1 - Risk 60-74 years 1-dose series) [facility] Start: 2002 SHINGRIX VACCINE (1 of 2) SHINGRIX VACCINE (1 of 2) [facility] Start: 1997 COLOGUARD (FIT-DNA) COLOGUARD (FIT-D NA) [facility] Start: [address] COLONOGRAPHY [facility] Start: 1997 FECAL OCCULT BLOOD FECAL OCCULT BLOO D [facility] Start: 1997 Screening for malign ant neoplasm of colon [facility] Start: 1997 SIGMOIDOSCOPY SIGMOIDOSCOPY [facility] Start: 1970 Anxiety Screening Anxiety Screening [facility] Start: 1970 BP CONTROLLED (<130/80) BP CONTROLLE D (<130/80) [facility] Start: 1970 Depression Screening Depression Scre ening [facility] Start: 1952 ABDOMINAL AORTIC ANEURYSM SCREENING ABDOMINAL AORTIC ANEURYSM SCREENING [facility] Bilirubin measuremen t, urine [facility] Hemoglobin [Presence ] in Urine [facility] Measurement of keton es in urine using dipstick [facility] Microscopic urinalysis [facility] Organism count, microscopic method [facility] Patient Education ED Kidney Stone with Pa in [facility] Work Phone: Patient referral [facility] Work Phone: pH of Urine [facility] Polysomnography [facility] Specific gravity of Urine [facility] Urine dipstick for glucose [facility] Urine dipstick for leukocyte esterase [facility] Urine dipstick for nitrite [facility] Urine dipstick for protein [facility] Urine examination [facility] Urine microscopy: epithelial cells [facility] Urine microscopy: re d cells [facility] Urobilinogen [Presen ce] in Urine [facility] End: 05-18-2023 Us abdominal aorta real time screen study aaa US SCREENING FOR [facility] Radiology Routine History of tobacco use 1 Occurrences starting 04/18/2022 until 05/18/2023 [facility] Work Phone: Comment on above: 1 Occurrences starti ng 04/18/2022 until 05/18/2023 US Heart limited [facility] End: 04-29-2025 US.doppler Extremity arteries - bilateral for physiologic artery study PVR ANK [facility] Vascular Lab Routine Diminished pulses in lower extremity 1 Occurrences starting 04/29/2024 until 04/29/2025 [facility] Work Phone: Comment on above: 1 Occurrences starti ng 04/29/2024 until 04/29/2025 White blood cell count [facility] Immunizations Immunization Date Immunization Notes Care Provider Silvia obando 05-15-2024 COVID-19 vaccine, ag e 12+ yr (PFIZER-BIONTECH COMIRNATY) [employer] GLOBAL ACCOUNT DIRECTOR.HUMAN SERVICES INSTRUCTOR Work Phone: [facility] 05-15-2024 influenza, high dose seasonal, preservative-free [employer] GLOBAL ACCOUNT DIRECTOR.HUMAN SERVICES INSTRUCTOR Work Phone: [facility] 05-15-2024 influenza virus vaccine, unspecified formulation Son Ramirez MD Work Phone: [facility] 04-17-2023 COVID-19 vaccine, ag e 12+ yr, season (PFIZER-BIONTECH) Son Ramirez MD Work Phone: [facility] 04-17-2023 influenza (HD-IIV4) vaccine, age 65+ yr, high dose, quadrivalent, PF (FLUZONE HIGH-DOSE) Son Ramirez MD Work Phone: [facility] 04-17-2023 influenza virus vaccine, unspecified formulation Son Ramirez MD Work Phone: [facility] 04-18-2022 COVID-19 booster vaccine, age 12+ yr, bivalent (PFIZER-BIONTECH) Son Ramirez MD Work Phone: [facility] 03-24-2022 influenza (HD-IIV4) vaccine, age 65+ yr, high dose, quadrivalent, PF (FLUZONE HIGH-DOSE) Son Ramirez MD Work Phone: [facility] 03-24-2022 influenza, high dose seasonal, preservative-free Son Ramirez MD Work Phone: [facility] 03-24-2022 influenza virus vaccine, unspecified formulation 2 Work Phone: [facility] 04-16-2021 influenza, high-dose , quadrivalent vaccine (FLUZONE HIGH DOSE QUADRIVALENT) Angelika Torres APRN.HUMAN SERVICES INSTRUCTOR Work Phone: [facility] 04-08-2021 COVID-19 original vaccine, full dose, monovalent (MODERNA) Son Ramirez MD Work Phone: [facility] 04-02-2021 COVID-19 vaccine, fu ll dose (MODERNA) Angelika Torres APRN.HUMAN SERVICES INSTRUCTOR Work Phone: [facility] 08-20-2020 COVID-19 vaccine, fu ll dose (MODERNA) Angelika Torres APRN.HUMAN SERVICES INSTRUCTOR Work Phone: [facility] Work Phone: 07-23-2020 COVID-19 vaccine, fu ll dose (MODERNA) Angelika Torres APRN.HUMAN SERVICES INSTRUCTOR Work Phone: [facility] Work Phone: 07-22-2020 Covid (Moderna) [facility] 04-14-2020 influenza, high-dose , quadrivalent vaccine (FLUZONE HIGH DOSE QUADRIVALENT) Angelika Torres APRN.[employer] Work Phone: [facility] 05-16-2019 hepatitis B vaccine, adult dosage Angelika Torres APRN.HUMAN SERVICES INSTRUCTOR Work Phone: [facility] Work Phone: 04-16-2019 hepatitis B vaccine, adult dosage Angelika Torres APRN.HUMAN SERVICES INSTRUCTOR Work Phone: [facility] Work Phone: 04-12-2019 influenza, high dose seasonal, preservative-free Angelika Torres APRN.[employer] Work Phone: [facility] 04-12-2019 pneumococcal polysaccharide vaccine, 23 valent Angelika Torres APRN.[employer] Work Phone: [facility] 04-11-2018 influenza, high dose seasonal, preservative-free Angelika Torres APRN.[employer] Work Phone: [facility] 10-05-2017 pneumococcal conjuga te vaccine, 13 valent Angelika Torres APRN.[employer] Work Phone: [facility] 10-05-2017 tetanus and diphther ia toxoids, adsorbed, preservative free, for adult use (5 Lf of tetanus toxoid and 2 Lf of diphtheria toxoid) Angelika Torres APRN.[employer] Work Phone: [facility] 04-19-2017 influenza, injectabl e, quadrivalent, contains preservative Angelika Torres APRN.[employer] Work Phone: [facility] Payers Date Payer Category Payer Self-pay [id number] 2018 [facility] DICARE SUPPLEMENT [id number] 2018 Unknown ANTHEM ANTHEM ME DICARE SUPPLEMENT [id number] 2018-Present [phone] [id number] [place] [id number] Indemnity [id number] 2018 Unknown ANTHEM ANTHEM ME DICARE SUPPLEMENT [id number] 2018-Present [phone] [id number] [place] [id number] Indemnity [id number] 2018 Unknown [id number] 2017 Medicare MEDICARE MEDICAR E A AND B [id number] 2017-Present [phone] [place] [address] Medicare [id number] 2017 Medicare [id number] 2017 Medicare [id number] 1950 Unknown [id number] Unknown R JOAN [id number] Unknown [id number] Unknown [id number] Unknown [id number] Unknown [id number] Unknown [id number] Unknown [id number] Social History Date Type Detail Facility Start: 03-21-2021 End: 05-11-2023 Tobacco smoking status [facility] Unknown if ever smoked [facility] Start: 1950 Sex Assigned At Male W [facility] Start: 04-18-2022 End: 05-15-2024 Tobacco smoking status DEIS Ex-smoker [facility] Start: 07-31-1974 End: 07-31-1994 History of tobacco use Current smoker [facility] Start: 07-31-1974 End: 07-31-1994 History of tobacco use Cigarette Smoker [facility] Start: 04-21-2021 End: 11-13-2024 Alcohol intake Current drinker of alcohol (finding) [facility] Start: 04-21-2021 End: 04-17-2023 Alcohol intake [facility] Start: 01-25-2021 History SDOH Alcohol Frequency 2 [facility] Start: 01-25-2021 History SDOH Alcohol Std Drinks 1 [facility] Start: 08-13-2014 History SDOH Alcohol Comment beer on weekend. [facility] Start: 01-25-2021 End: 04-18-2022 History SDOH Social Connections Phone 5 [facility] Start: 01-25-2021 History SDOH Social Connections Get Together 4 [facility] Start: 01-25-2021 History SDOH Social Connections [facility] Start: 01-25-2021 Education 12 [facility] Start: 1950 Sex Assigned At Not on file C [facility] Start: 08-17-2021 End: 04-26-2022 Exposure to SARS-CoV-2 (event) Not sure [facility] Work Phone: Start: 04-18-2022 End: 05-15-2024 Tobacco use and exposure Former smokeless tobacco user [facility] Start: 04-18-2022 History SDOH Physica l Activity MPS 6 [facility] Start: 01-25-2021 End: 04-17-2023 Social connection and isolation panel [facility] Do you belong to any clubs or organizations such as restorationist groups, unions, fraternal or athletic groups, or school groups? Yes [facility] Are you now , , , , never or living with a partner? [facility] How often to you hav e a drink containing alcohol? Monthly or less [facility] How many standard dr inks containing alcohol do you have on a typical day? 1 or 2 [facility] How often do you hav e 6 or more drinks on 1 occasion? Never [facility] Start: 07-28-2014 How hard is it for y ou to pay for the very basics like food, housing, medical care, and heating Not hard at all [facility] Do you feel stress - tense, restless, nervous, or anxious, or unable to sleep at night because your mind is troubled all the time - these days [OSQ] To some extent [facility] (I/We) worried zoe er (my/our) food would run out before (I/we) got money to buy more. Never true [facility] In the past 12 month s, was there a time when you were not able to pay the mortgage or rent on time? No [facility] Do you feel stress - tense, restless, nervous, or anxious, or unable to sleep at night because your mind is troubled all the time - these days [OSQ] Only a little [facility] Medical Equipment Procedure Code Equipment Code Equipment Origin al Text Equipment Identifier Dates MILKA IRELAND MD [id number] FDA Start: 06-19-2017 LAYNE,SECURE STRAP FDA Start : 06-19-2017 GABRIELER,SECURE STRAP FDA Start : 06-19-2017 MILKA IRELAND MD [id number] FDA Start: 06-19-2017 TACKER,SECURE STRAP FDA Start : 06-19-2017 TACKER,SECURE STRAP FDA Start : 06-19-2017 Drug-eluting coronary artery stent, [id number] lymer-coated ()[id number] FDA Start: 04-07-2023 MESH,VENTRIO ST OVAL 11X14 FDA Start: 06-19-2017 TACKER,SECURE STRAP FDA Start : 06-19-2017 TACKER,SECURE STRAP FDA Start : 06-19-2017 MESH,VENTRIO ST OVAL 11X14 FDA Start: 06-19-2017 TACKER,SECURE STRAP FDA Start : 06-19-2017 TACKER,SECURE STRAP FDA Start : 06-19-2017 Drug-eluting coronary artery stent, [id number] lymer-coated ()[id number] FDA Start: 05-11-2023 Drug-eluting coronary artery stent, [id number] lymer-coated ()[id number] FDA Start: 05-11-2023 MESH,VENTRIO ST OVAL 11X14 [...] 06-19-2017 TACKER,SECURE STRAP FDA Start : 06-19-2017 MESH,KERIIO ST MERCEDES HOWELL 11X14 FDA Start: 06-19-2017 TACKER,SECURE STRAP FDA Start : 06-19-2017 TACKER,SECURE STRAP FDA Start : 06-19-2017 MESH,VENTRIO ST MERCEDES HOWELL 11X14 FDA Start: 06-19-2017 TACKER,SECURE STRAP FDA Start : 06-19-2017 TACKER,SECURE STRAP FDA Start : 06-19-2017 Goals Date Patient Goal Desired Activity /State Functional Status Date Assessment Result Facility 05-12-2023 Functional status Ambulates [facility] Work Phone: 04-08-2023 Functional status Activity Abili ty Independent [facility] Work Phone: 04-07-2023 Functional status Tolerates Activity Well [facility] Work Phone: 04-06-2023 Functional status Patient Activi ty Ambulates;Bathroom Privilege [facility] Work Phone: 12-13-2014 Are you deaf, or do you have serious difficulty hearing No 12/13/2014 8:32 AM Tamra Moncada MA No [facility] 12-13-2014 Are you blind, or do you have serious difficulty seeing, even when wearing glasses No 12/13/2014 8:32 AM Tamra Moncada MA No [facility] 12-13-2014 Do you have serious difficulty walking or climbing stairs No 12/13/2014 8:32 AM Tamra Moncada MA No [facility] 12-13-2014 Do you have difficul ty dressing or bathing No 12/13/2014 8:32 AM Tamra Moncada MA No [facility] 12-13-2014 Because of a physica l, mental, or emotional condition, do you have difficulty doing errands alone such as visiting a physician's office or shopping No 12/13/2014 8:32 AM Tamra Moncada MA No [facility] Mental Status Date Assessment Result Facility 05-12-2023 Cognitive function Voice/Name [facility] Work Phone: 04-08-2023 Cognitive function Voice/Name [facility] Work Phone: 12-13-2014 Because of a physica l, mental, or emotional condition, do you have serious difficulty concentrating, remembering, or making decisions No 12/13/2014 8:32 AM EDT Tamra Martin MA No [facility] Clinical Notes 01-19-2021 to 02-06-2025 Guerline Rashid MA - 02/06/2025 10:22 AM EDT Note Date & Type Note Facility 02-06-2025 Note HNO ID: [id number] Author: GUERLINE RASHID MA Service: ? Author Type: Senior Consultant Type: Progress Notes Filed: 02/06/2025 10:24 Note Text: POPULATION HEALTH NAVIGATION OUTREACH Action/FYI FLIPPED APPOINTMENT. [...] scheduled Updated appointment notes Navigation Signature: Guerline Rashid MA February 06, 2025 10:22 AM [facility] 02-06-2025 History of Present illness Narrative POPULATION HEALTH NAVIGATION OUTREACH Action/FYI FLIPPED APPOINTMENT. [...] scheduled Updated appointment notes Navigation Signature: Guerline Rashid MA February 06, 2025 10:22 AM documented in this encounter [facility] 02-06-2025 Note Patient Outreach (NE TNAV) ALISSA CAPPS ([id number]) 1950 M Date Time Provider Department 02/06/25 GUERLINE RASHID During your visit today, we recorded the following information about you: Guerline Rashid MA 02/06/2025 10:24 AM Signed POPULATION HEALTH [...] scheduled Updated appointment notes Navigation Signature: Guerline Rashid MA February 06, 2025 10:22 AM Allergies [...] reflux disease) [K21.9] Encounter Status:Closed by GUERLINE RASHID on 02/06/25 [facility] 01-15-2025 Discharge summary [facility] 01-14-2025 Radiology Diagnostic study note [facility] Imaging Services [address] [place] [address] Abdomen/Pelvis without Cont MR#: [id number] Acct: [id number] Name: ALISSA CAPPS Rep #: [id number] : 1950 M 74 From: Edward Joshi MD PCP: Dr. Aleksandr Ramirez MD Status: REG ER Study:Abdomen/Pelvis without Cont Date of Exa m: 01/14/25 Exam# [id number] Ordering Dr: Eva Mazariegos DO PROCEDURE: ABDOMEN/PELVIS WITHOUT CONT 01/14/2025 REASON FOR EXAM: LEFT FLANK PAIN TECHNIQUE: ABDOMEN/PELVIS WITHOUT CONT Noncontrast technique limits evaluation of the abdominal and pelvic viscera. Coronal and Sagittal reconstruction series were provided. One or more dose reduction techniques were used (e.g., Automated exposure control, adjustment of the mA and/or kV according to patient size, use of iterative reconstruction technique). COMPARISON: CT chest, abdomen and pelvis 04/06/2023 FINDINGS: Lung bases: Diffuse pulmonary vascular congestion and bibasilar dependent atelectasis. Mild cardiomegaly. Liver: Normal size. No obvious mass. Gallbladder: Not visualized and likely surgically absent. No biliary ductal dilatation. Spleen: Normal size. Pancreas: Diffuse fatty atrophy. 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 Left adrenal gland unremarkable. Kidneys: There is an obstructing 4 mm calculus in the proximal left ureter causing mild left hydronephrosis and left perinephric fat stranding. No right renal calculus or hydronephrosis. Bladder: Underdistended, limiting evaluation. Reproductive Organs: Prostate not enlarged. Bowel: Scattered colonic diverticulosis without acute diverticulitis. No bowel obstruction. Appendix: Normal. Lymph nodes: No enlarged lymph nodes. Vasculature: The abdominal aorta and IVC contours are normal. Noncontrast technique limits evaluation. Peritoneum / Retroperitoneum: No free fluid or air. Bones: Degenerative changes of the spine. No acute fractures. CT/Abdomen/Pelvis without Cont IMPRESSION: 1. Obstructing 4 mm calculus in the proximal left ureter causing mild left hydronephrosis and left perinephric fat stranding. 2. 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 3. Diffuse pulmonary venous congestion and bibasilar dependent atelectasis. Reading Location: [facility] CC: Dr. Aleksandr Ramirez MD; Brett Mazariegos DO ~ Firearms Assembly Supervisor: Signed [facility] 01-14-2025 Discharge summary Note Date/Time January 15, 2025 12:12am [facility] Medical Records Department [address] [place] [address] Emergency Department Summary 01/14/25 MR#: [id number] Acct: [id number] Name: ALISSA CAPPS SLOANE Rep #:[id number] : 1950 74 From: Brett Mazariegos DO PCP: Dr. Aleksandr Ramirez MD Status :REG ER Location: ED HPI History of Present Illness Chief Complaint: Abd Pain Informant: patient and spouse/S.O. Narrative Narrative: Patient is a 74-year-old male with past medical history of hypertension hyperlipidemia CAD and bpg-avxzslf-rrfljqpjj diabetes. He states that roughly 1to 2 hours prior to arrival he was sitting in the chair and he stood up and nextthing he knew he was having sharp left-sided abdominal pain. He states that after the pain came on he then developed a few bouts of nausea and vomiting. Hestates that there has been no trauma or excessive activity. He denies any fevers or chills diarrhea constipation dysuria or hematuria. He states there isno comfortable position. He states that there has been no improvement of the symptoms over the last few hours and secondary to this he comes in for evaluation. [facility] Medical History Acute right-sided low back pain Ischemic cardiomyopathy Atherosclerotic heart disease of [place] coronary artery without angina pectoris Non-STEMI (non-ST elevated myocardial infarction) CARLA (acute kidney injury) Pancreatitis Pancreatitis, acute Wears hearing aid in both ears Alcohol abuse URI (upper respiratory infection) Former smoker Hypertension Diabetes Home Medications ?Medication ?Instructions ?Recorded ?Last Taken ?Type omeprazole 20 mg capsule,delayed 20 mg PO DAILY 04/06/23 History release metformin 500 mg tablet 500 mg PO DAILY diabetes #1 TAB 04/08/23 05/10/23 Rx multivitamin (Daily Multi-Vitamin 1 tab PO DAILY 05/02 Unknown History tablet) nitroglycerin 0.4 mg sublingual 0.4 mg sublingual Q5-1 5M PRN chest 09/28/23 Unknown Rx tablet pain #30 tabs valsartan 320 mg tablet 320 mg PO DAILY #90 tabs Unknown Rx carvedilol 25 mg tablet 25 mg PO BID #60 tabs Unknown Rx clopidogrel 75 mg tablet 75 mg PO DAILY #90 tabs 01/19 Unknown Rx atorvastatin 40 mg tablet 40 mg PO BID cholesterol Unknown History ketorolac 10 mg tablet 10 mg PO 4X/DAY PRN pain 5 d ays 01/14/25 Unknown Rx #20 tabs ondansetron 4 mg disintegrating 4 mg PO TID PRN nausea and 01/14/25 Unknown Rx tablet vomiting #21 tabs oxycodone-acetaminophen 5 mg-325 1 tab PO Q6H PRN pain 5 days #20 01/14/25 Unknown Rx mg tablet (Percocet) tabs tamsulosin 0.4 mg capsule (Flomax) 0.4 mg PO DAILY 14 days #14 caps 01/14/25 Unknown Rx cephalexin 500 mg capsule 500 mg PO TID 7 days #21 cap s 01/15/25 Unknown Rx Allergy/AdvReac Type Severity Reaction Status Date / Time chlorhexidine Allergy Mild HIVES Verified 01/14/25 21:10 Family History Father Diabetes Mother Hypertension Surgical History Stented coronary artery (05/11/23) History of cholecystectomy S/P carpal tunnel release S/P hernia repair S/P cholecystectomy Social History household members: spouse housing: house Smoking Status: Former smoker how long ago did patient quit smokin years ago alcohol intake: current alcohol intake frequency: a few times a month Alcohol type: beer and wine substance use type: does not use caffeine: Yes (Occasionally) Type: tea ROS ROS ED Constitutional Constitutional ED: Denies chills or fever(s) ENT ENT ED: Denies sore throat Cardiovascular Cardiovascular: Denies chest pain Respiratory/Chest Respiratory/Chest: Denies cough or dyspnea Gastrointestinal Gastrointestinal: Reports abdominal pain, nausea and vomiting; Denies constipation or diarrhea Genitourinary Genitourinary ED: Denies dysuria or hematuria Musculoskeletal Musculoskeletal: Reports back pain Integumentary Denies rash Neurologic Neurologic: Denies headache(s) Hematologic/Lymphatic Hematologic/Lymphatic: Reports easy bleeding and easy bruising EXAM Physical Exam Const Vital Signs: 01/14/25 21:11 01/14/25 23:10 Temperature 97.2 F L Temperature Source Temporal Pulse Rate 71 80 Respiratory Rate 24 H Blood Pressure 188/81 H 167/89 H Blood Pressure Mean 116 115 Pulse Ox 97 96 Oxygen Delivery Method Room Air Positive well nourished, well developed and obese General Appearance ED: well developed; Negative for pallor Nutritional Appearance: obese HEENT HEENT Narrative: Normocephalic atraumatic Eyes PERRL and EOMs intact bilaterally General Eye ED: Negative for scleral icterus Neck supple and no JVD Resp normal respiratory effort and clear to auscultation bilaterally Cardio regular rate and regular rhythm Rate: other Other Details: Heart is regular rate and rhythm Radial and carotid pulses are equal and symmetric GI non-distended and no masses GI Narrative: Abdomen is soft and nondistended with normal active bowel sounds. There is diffuse pain along the left lateral abdomen. No voluntary guarding or rigidity. No pulsatile mass or fluid wave. Auscultation: normoactive bowel sounds Palpation: soft Back/Spine Back/Spine Narrative: Positive left CVA pain noted Extremity normal to inspection Neuro oriented x3, CN's II-XII intact bilaterally and no sensory deficits noted Sensorium / Orientation: alert Motor Exam: strength 5/5 throughout Psych mental status grossly normal Skin no rashes or lesions noted and no wounds Skin Narrative: No overlying soft tissue changes to suggest trauma or infection General Skin Exam: Negative for jaundice or pallor MDM MDM MDM Narrative Medical decision making narrative: Patient arrived here hypertensive but has a past medical history of this and is in pain so it is to be expected and otherwise vitals are stable. He reported sudden onset of sharp left-sided abdominal pain without a comfortable position and bouts of nausea and vomiting. Differential diagnosis is for kidney stone versus is UTI versus pyelonephritis versus diverticulitis. History and exam is most consistent with kidney stone therefore basic labs with a noncontrast CT were obtained. Labs revealed no signs of urosepsis or acute kidney injury. CT scan confirmed a 4 mm stone in the proximal left ureter. It does have mild hydronephrosis and fat stranding but without fever or leukocytosis I have low concern for developing infection. After receiving IV fluids as well as Toradol morphine patient reported a pain value of 2. Therefore this time he does not have CARLA he does not have urosepsis his pain is well-controlled and therefore there is no need for emergent urology consultation or admission. The patient will be placed on symptomatic medications and can follow-up with urology as an outpatient. This plan of care was discussed with patient and spouse and they are agreeable to it. History & Record Review Discussion w/independent historian: Patient and Significant other Lab Data Attestation: I reviewed the patient's lab results. Labs: Laboratory Results - last 24 hr 01/14/25 22:22 WBC 7.0 RBC 4.99 Hgb 15.4 Hct 44.2 MCV 88.6 MCH 30.9 MCHC 34.8 RDW Std Deviation 40.0 RDW Coeff of Aiyana 12.4 Plt Count 185 MPV 9.9 Immature Gran % (Auto) 0.300 Neut % (Auto) 71.8 H Lymph % (Auto) 17.3 L [place] % (Auto) 6.8 Eos % (Auto) 2.9 Baso % (Auto) 0.9 Absolute Neuts (auto) 5.0 Absolute Lymphs (auto) 1.20 Nucleated RBC % 0 Sodium 141 Potassium 4.5 Chloride 108 Carbon Dioxide 20.8 L Anion Gap 13 BUN 21 H Creatinine 1.42 H Estim Creat Clear Calc 59.83 Est GFR (MDRD) Non-Af 53 L BUN/Creatinine Ratio 14.6 Glucose 162 H Calcium 8.7 Radiography Diagnostic Testing: Clinical Impression(s) from Imaging Studies Abdomen/Pelvis CT 01/14/25 22:02 IMPRESSION: 1. Obstructing 4 mm calculus in the proximal left ureter causing mild left hydronephrosis and left perinephric fat stranding. 2. 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 3. Diffuse pulmonary venous congestion and bibasilar dependent atelectasis. Reading [facility] Dis[facility] Plan Triage Chief Complaint: Abd Pain ED Provider: Brett Mazariegos Dx/Rx/DC Orders Clinical Impression: Kidney stone, Renal colic, Hypertension, Dyslipidemia, Non-insulin dependent diabetes mellitus Instructions: ED Kidney Stone with Pain Prescriptions: New oxycodone-acetaminophen [Percocet] 5-325 mg tablet 1 tab PO Q6H PRN (Reason: pain) 5 Days Qty: 20 0RF ketorolac 10 mg tablet 10 mg PO 4X/DAY PRN (Reason: pain) 5 Days Qty: 20 0RF tamsulosin [Flomax] 0.4 mg capsule 0.4 mg PO DAILY 14 Days Qty: 14 0RF ondansetron 4 mg tablet,disintegrating 4 mg PO TID PRN (Reason: nausea and vomiting) Qty: 21 0RF cephalexin 500 mg capsule 500 mg PO TID 7 Days Qty: 21 0RF No Action multivitamin [Daily Multi-Vitamin] Tablet 1 tab PO DAILY atorvastatin 40 mg tablet 40 mg PO BID omeprazole 20 mg Capsule,Delayed Release(Dr/Ec) 20 mg PO DAILY metformin 500 MG tablet 500 mg PO DAILY Qty: 1 0RF Rx Instructions: start on 04/09/23 nitroglycerin 0.4 mg tablet, sublingual 0.4 mg sublingual Q5-15M PRN (Reason: chest pain) Qty: 30 11RF valsartan 320 mg tablet 320 mg PO DAILY Qty: 90 3RF carvedilol 25 mg tablet 25 mg PO BID Qty: 60 11RF clopidogrel 75 mg tablet 75 mg PO DAILY Qty: 90 3RF Primary Care Provider: Aleksandr Ramirez Referrals: Aleksandr Ramirez MD [Primary Care Provider] - Yaya Tristan MD [Med Staff - Active Staff] - Activity Restrictions/Additional Instructions: Please take your Percocet and Toradol together on a scheduled basis to help control pain and keep yourself well-hydrated and stay active to help pass your stone. If you develop a fever of 100.4 or higher or have intractable pain despite taking your medication or any further concerns please return to the ER for repeat evaluation. Print Language: Lithuanian Disposition Disposition: Home, Self Care What to do if you have Problems For any increased pain, shortness of breath, bleeding, nausea or vomiting, chestpain, or any unexpected problems, contact your Primary Care Provider. Call [facility] ([phone]) or report to the closest Emergency Room. Call 911 if necessary. 01/15/25 0012 <Electronically signed by Brett Mazariegos DO> Cosigner Signature (if applicable): CC: Dr. Aleksandr Ramirez MD ~ Signed [facility] Work Phone: 1(225) 792-551208-14-2025 Telephone encounter Note* Telephone Encounter - Cherie Tavera MA - 01/09/2025 3:07 PM EDT Prescription Refill Information The patient has been [...] Tavera MA January 09, 2025 3:07 PM [facility]14[facility] Miscellaneous Notes* Telephone Encounter - Cherie Tavera MA - 01/09/2025 3:07 PM EDT Prescription Refill Information The patient has been [...] 09, 2025 3:07 PM documented in this encounterLutheran Hospital07-16-2025 Evaluation note* Diagnosis Onset Date Resolution Status Admit Date Atherosclerotic heart disease of [place] coronary artery without angina pectoris acute December 11, 2024 7:50am Dyslipidemia chronic December 11, 025 7:50am Hypertension chronic December 11, 025 7:50am Ischemic cardiomyopathy chronic J eddie 2024 7:50am Stented coronary artery May 11, 2023 [facility] December 11, 2024 7:50am [facility] Work Phone: 1(186) 800-563207-16-2025 Evaluation note* Diagnosis Onset Date Resolution Status Admit Date Atherosclerotic heart disease of [place] coronary artery without angina pectoris acute December 11, 2024 7:50am Dyslipidemia chronic December 11, 2 025 7:50am Hypertension chronic December 11, 025 7:50am Ischemic cardiomyopathy chronic J 2024 7:50am Stented coronary artery May 11, 2023 [facility] December 11, 2024 7:50am Obstructive sleep apnea acute S ep2024 7:54am [facility] Work Phone: 1(237) 158-895307-16-2025 Evaluation note* Diagnosis Onset Date Resolution Status Admit Date Atherosclerotic heart disease of [place] coronary artery without angina pectoris acute December 11, 2024 7:50am Dyslipidemia chronic December 11, 025 7:50am Hypertension chronic December 11, 025 7:50am Ischemic cardiomyopathy chronic J eddie2024 7:50am Stented coronary artery May 11, 2023 [facility] December 11, 2024 7:50am Obstructive sleep apnea acute S 2024 7:54am Diabetes chronic January 31, 2025 7:54am Hypertension chronic January 7:54am [facility] Work Phone: 1(710) 147-185106-18-2025 Instructions* Patient Instructions* Son Ramirez MD - 11/13/2024 7:49 AM [...] will contact you to set that up soonerif you develop any new symptoms. documented in this encounterLutheran Hospital06-18-2025 NoteHNO ID: [id number] Author: SON RAMIREZ MD Service: ? Author Type: Physician Type: Progress Notes Filed: 11/13/2024 07:52 Note Text: Chief Complaint Patient presents with: 6 Month Exam Recording using [email or web address] software for draft documentation of the visit was discussed with the patient/authorized off premise service representative; all questions welcomed and answered. Patient/authorized off premise service representative agreed to proceed HPI Alissa Capps is a 74 year old male who presents here today for Above Complaints. Patient has been in good health without recent hospitalizations, ER visits, or falls. No concerns today. Diabetes Mellitus: - A1c remains stable at 6.4%. - Sloane adheres to diabetic diet most of the time. - Consistently takes metformin daily. - Rarely checks blood glucose levels at home, approximately once a month. - No new or worsening symptoms; recent eye exam showed no retinopathy. - Monitors feet daily; thread marker recommended iodine for moisture between toes. Coronary Artery Disease: - Last cardiology visit at [facility] in May; next appointment scheduled for November. [...] lab work showed a slight decrease in Sloane's protein levels from 6.3 to 6.0 g/dL. Shoulder Pain: - Mild shoulder soreness attributed to lifting activities. Past medical history, appointments, medications, allergies reviewed. Previous Medical History PAST MEDICAL HISTORY Diagnosis Date CAD (coronary artery disease) Carpal tunnel syndrome on right s/p surgical correction CHF (congestive heart failure) ([facility]) 04/17/2023 EF 45% Chronic left shoulder pain 20+ years, ran over by a sow Diabetes mellitus type II, controlled (HCC) Fatty liver 05/02/2022 on GERD (gastroesophageal reflux [...] diarrhea SKIN: Negative fo (more content not included)...[facility] 11-13-2024 History of Present illness Narrative* Son Ramirez MD - 11/13/2024 7:35 AM EDT Chief Complaint Patient presents with: 6 Month Exam Recording using [email or web address] software for draft documentation of the visit was discussed with the patient/authorized off premise service representative; all questions welcomed and answered. Patient/authorized off premise service representative agreed to proceed HPI Alissa Capps is a 74 year old male who presents here today for Above Complaints. Patient has been in good health without recent hospitalizations, ER visits, or falls. No concerns today. Diabetes Mellitus: - A1c remains stable at 6.4%. - Sloane adheres to diabetic diet most of the time. - Consistently takes metformin daily. - Rarely checks blood glucose levels at home, approximately once a month. - No new or worsening symptoms; recent eye exam showed no retinopathy. - Monitors feet daily; thread marker recommended iodine for moisture between toes. Coronary Artery Disease: - Last cardiology visit at [facility] in May; next appointment scheduled for November. [...] lab work showed a slight decrease in Sloane's protein levels from 6.3 to 6.0 g/dL. Shoulder Pain: - Mild shoulder soreness attributed to lifting activities. Past medical history, appointments, medications, allergies reviewed. Previous Medical History PAST MEDICAL HISTORY Diagnosis Date CAD (coronary artery disease) Carpal tunnel syndrome on right s/p surgical correction CHF (congestive heart failure) ([facility]) 04/17/2023 EF 45% Chronic left shoulder pain 20+ years, ran over by a sow Diabetes mellitus type II, controlled ([facility]) Fatty liver 05/02/2022 on GERD (gastroesophageal reflux disease) HTN (hypertension) Mild nonproliferative diabetic retinopathy of both eyes without macular edema associated with type 2 diabetes mellitus ([facility]) 04/2020 Obesity S/P angioplasty with stent 03/2023 [...] Lymph 1.00 - 4.00 k/uL 1.61 1.88 [place]% % 12.2 11.2 Abs [place] <0.87 k/uL 0.64 0.65 Eosin% % 3.1 [...] to continue daily foot inspections; follow-up with thread marker Dr. Gutierrez scheduled annually in April. - Urinalysis revealed proteinuria; continue valsartan therapy to manage. 3. Coronary artery 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, unspecified vessel or [...] of increased Lipitor dosage. - Follow-up with plant protection supervisor scheduled for late November. 6. Primary hypertension [...] heartburn. Son Ramirez MD documented in this encounterLuther[facility] Hospital12-18-2024 NoteHNO ID: [id number] Author: UMU MARQUEZ APRN.HUMAN SERVICES INSTRUCTOR Service: ? Author Type: Nurse Practitioner Type: [...] CAD/CHF/HX of STEMI and YUKI: followed with [facility] cardiology on 12/13/2023. Switched from Brilinta to [...] gi upset: Yes Going to go to [employer] to work on weight. 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, ran over by a sow Diabetes mellitus type II, controlled ([facility]) Fatty liver 05/02/2022 on HTN (hypertension) Mild [...] Abs Lymph 1.00 - 4.00 k/uL 1.61 [place]% % 12.2 Abs [place] <0.87 k/uL 0.64 Eosin% % 3.1 Abs Eosin <0.46 k/uL 0.16 Baso% % 0.8 Abs Baso <0.11 k/uL 0.04 Immatur (more content not included)...[facility]12-18-2024 History of Present illness Narrative* DanniellelogUmu angela APRN.HUMAN SERVICES INSTRUCTOR - 05/15/2024 7:54 AM EST 05/15/2024 Patient presents with: F/U 6 Month SUBJECTIVE: This is a 73 year old that is here today for Above Complaints. DIABETES MELLITUS:Since our last visit he denies excessive thirst or increased frequency of urination, chest pain or dyspnea , new or unusual visual symptoms, low sugar/hypoglycemic reactions, weightloss/gain, lightheadedness/dizziness, and bowel changes/loose stools Follows a diabetic diet most of the time. He is compliant with medication(s) and is tolerating med(s) without any side effects. Hereports checking his glucose on a infrequent to not at all basis schedule . Patient's last HgA1C was Hemoglobin A1C (%) Date Value 05/14/2024 6.4 11/09/2023 6.3 04/16/2021 6.5 10/19/2020 6.7 ) Last Ophthalmology exam was within the past 12 months CAD/CHF/HX of STEMI and YUKI: followed with [facility] cardiology on 12/13/2023. Switched from Brilinta to [...] gi upset: Yes Going to go to [employer] to work on weight. Had lost some weight doing [facility] rehab but has since gained some back PAST MEDICAL HISTORY Diagnosis Date CAD (coronary artery disease) Carpal tunnel syndrome on right s/p surgical correction CHF (congestive heart failure) ([facility]) 04/17/2023 EF 45% Chronic left shoulder pain 20+ years, ran over by a sow Diabetes mellitus type II, controlled ([facility]) Fatty liver 05/02/2022 on HTN (hypertension) Mild nonproliferative diabetic retinopathy of both eyes without macular edema associated with type 2 diabetes mellitus ([facility]) 04/2020 Obesity S/P angioplasty with stent 03/2023 YUKI to obtuse marginal branch Thrombocytopenia ([facility]) ALLERGIES Farxiga [Dapagliflozin] and Chlorhexidine MEDICATIONS Current [...] or lesions to exposed skin Latest Ref [facility] 05/14/2024 WBC 3.70 - 11.00 k/uL [...] Abs Lymph 1.00 - 4.00 k/uL 1.61 [place]% % 12.2 Abs [place] <0.87 k/uL 0.64 Eosin% % 3.1 Abs [...] HEMOGLOBIN A1C 2. Coronary artery 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, unspecified vessel or lesion type - ICD9: 414.01, ICD10: I25.10 - stable - CARVEDILOL 25 MG TABLET - follow-up with cardiology as recommended 3. Encounter for immunization - ICD9: V03.89, ICD10: Z23 - INFLUENZA VACCINE, PRSV FREE, AGE 65+ YR, HIGH DOSE, TRIVALENT (FLUZONE HIGH-DOSE) - [employer] COVID-19 VACCINE AGE 12+ YR (COMIRNATY) 4. [...] - follow-up with cardiology as recommended Umu Marquez APRN.CNP Prescription instructions reviewed with patient as applicable. [...] Level: 4 - Moderate documented in this encounterLutheran Hospital12-16-2024 Telephone encounter Note * Telephone Encounter - Zahra Brown RN - 05/13/2024 4:40 PM EST Tatianna called and notified that lab orders have been placed. Voiced understanding. Zahra Brown RN [facility]12-16-2024 Miscellaneous Notes* Telephone Encounter - Zahra Brown RN - 05/13/2024 4:40 PM EST Tatianna called and notified that lab orders have been placed. Voiced understanding. Zahra Brown RN * Telephone Encounter - Umu Marquez APRN.CNP - 05/13/2024 4:35 PM EST Lab orders placed. Umu Marquez APRN.CNP * Telephone Encounter - Zahra Brown RN - 05/13/2024 8:23 AM EST Patient's calling and states that patient has 6 month follow up scheduled with Umu on 05/15/2024. asking if provider wants patient to get labs done prior to appointment. If labs ordered asking for a call back. Please review and advise, Zahra Brown RN documented in this encounterLutheran Hospital12-16-2024 Telephone encounter Note * Telephone Encounter - Umu Marquez APRN.CNP - 05/13/2024 4:35 PM EST Lab orders placed. Umu Marquez APRN.CNP [facility]12-16-2024 Telephone encounter Note* Telephone Encounter - Zahra Brown RN - 05/13/2024 8:23 AM EST Patient's calling and states that patient has 6 month follow up scheduled with Umu on 05/15/2024. asking if provider wants patient to get labs done prior to appointment. If labs ordered asking for a call back. Please review and advise, Zahra Brown RN [facility]12-02-2024 Instructions* Patient Instructions* Alissa Gutierrez - 04/29/2024 8:16 AM EST [...] (or decreased sensation in your feet) a thread marker should always cut your toenails. Be Careful [...] Go to your health care provider or thread marker to treat these conditions. documented in this encounterLutheran Hospital12-02-2024 NoteHNO ID: [id number] Author: ALISSA GUTIERREZ, ? Service: ? Author [...] s/p surgical correction CHF (congestive heart failure) ([facility]) 04/17/2023 EF 45% Chronic left shoulder pain 20+ years, ran over by a sow Diabetes mellitus type II, controlled ([facility]) Fatty liver 05/02/2022 on HTN (hypertension) Mild nonproliferative diabetic retinopathy of both eyes without macular edema associated with type 2 diabetes mellitus ([facility]) 04/2020 Obesity S/P angioplasty with stent 03/2023 YUKI to obtuse marginal branch Thrombocytopenia ([facility]) Current Outpatient Medications Medication Sig clopidogrel (PLAVIX) [...] proximal to distal bilater (more content not included)...[facility]12-02-2024 History of Present illness Narrative* Alissa Gutierrez - 04/29/2024 8:09 AM EST Subjective: This 73 year old male presents [...] s/p surgical correction CHF (congestive heart failure) ([facility]) 04/17/2023 EF 45% Chronic left shoulder pain 20+ years, ran over by a sow Diabetes mellitus type II, controlled ([facility]) Fatty liver 05/02/2022 on HTN (hypertension) Mild nonproliferative diabetic retinopathy of both eyes without macular edema associated with type 2 diabetes mellitus ([facility]) 04/2020 Obesity S/P angioplasty with stent 03/2023 YUKI to obtuse marginal branch Thrombocytopenia ([facility]) Current Outpatient Medications Medication Sig clopidogrel (PLAVIX) [...] Objective: Patient presents to clinic ambulating in [facility] Constitutional: Pt is a well developed 73 [...] dorsiflexors,plantarflexors, inverters, everters. Digital deformities include none. Posterior heel spur is notedb/l. Without pain Assessment: (E11.42) Diabetic polyneuropathy associated [...] shoes that avoid rubbing. Alissa Gutierrez DPM * Elinor Salvador LPN - 04/29/2024 8:05 AM EST AMB ROOMING INTAKE FLOWSHEET DATA Risk Screening Do you have concerns about personal safety or safety in the home?: No Patient presents with: Left Foot - Established Patient, Follow Up, Diabetic Foot Check Right Foot - Established Patient, Follow Up, Diabetic Foot Check Elinor Salvador LPN documented in this encounterLutheran Hospital12-02-2024 NoteHNO ID: [id number] Author: ELINOR SALVADOR LPN Service: ? Author Type: LICENSED NURSE Type: Progress Notes Filed: 04/29/2024 08:19 Note Text: AMB ROOMING INTAKE FLOWSHEET DATA Risk Screening Do you have concerns about personal safety or safety in the home?: No Patient presents with: Left Foot - Established Patient, Follow Up, Diabetic Foot Check Right Foot - Established Patient, Follow Up, Diabetic Foot Check [facility] Telephone encounter Note* Telephone Encounter - Shruthi Sparks LPN - 03/16/2024 10:31 AM EDT The patient has been identified by name [...] Sparks LPN March 16, 2024 10:32 AM [facility] Miscellaneous Notes* Telephone Encounter - Shruthi Sparks LPN - 03/16/2024 10:31 AM EDT The patient has been identified by name [...] 16, 2024 10:32 AM documented in this encounterLutheran Hospital08-14-2024 Telephone encounter Note * Telephone Encounter - Elizabeth West LPN - 01/10/2024 2:41 PM EDT [facility]-11/14/23 Labs-11/09/23 NOV-05/15/24 Elizabeth West LPN [facility]08-14-[facility]24 Miscellaneous Notes* Telephone Encounter - Elizabeth West LPN - 01/10/2024 2:41 PM EDT [facility]-11/14/23 Labs-11/09/23 NOV-05/15/24 Elizabeth West LPN documented in this encounterLutheran Hospital06-18-2024 History of Present illness Narrative* Son Ramirez MD - 11/14/2023 7:59 AM EDT Chief Complaint Patient presents with: [...] the past 12 months CAD/CHF: Managed by [facility] cardiology with last OV 05/2023 which was reviewed. Repeat echo obtained 3 months go which showed persistently low EF of 40% and large wall abnormality with hypokinesis as wellas functionally bicuspid aortic valve due to fusion. [...] done Behavioral Health Screening Never done Covid-19 Vaccine(2022- season) due on 08/16/2023 DTaP,Tdap,Td Vaccine(1 - [...] issues arise. 2. Coronary artery 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, unspecified vessel or lesion type - ICD9: 414.01, ICD10: I25.10 Asymptomatic on current regimen. Failed farxiga due to rash. Continue higher dose Coreg per cardiology recommendations. Discuss alternative SGLT2 at upcoming appointment. - CARVEDILOL 6.25 MG TABLET - CARVEDILOL 25 MG TABLET 3. Systolic congestive heart failure, unspecified HF chronicity (HCC) - ICD9: 428.20, 428.0, ICD10:I50.20 See above. Recommendations per cardiology. 4. Primary [...] BL Son Ramirez MD documented in this encounterLutheran Hospital06-06-2024 Telephone encounter Note * Telephone Encounter - Yon Tam MA - 11/02/2023 10:02 AM EDT Patient's notified. They are unable to come to the office today. She is going to speak with ptand will call back to schedule if he decides to. [facility] Miscellaneous Notes* Telephone Encounter - Yon Tam MA - 11/02/2023 10:02 AM EDT Patient's notified. They are unable to come to the office today. She is going to speak with ptand will call back to schedule if he decides to. * Telephone Encounter - Son Ramirez MD - 11/02/2023 9:55 AM EDT I would recommend OV to discuss concerns with medication and evaluate for new urinary symptoms. I have openings today and would recommend be seen today for this. * Telephone Encounter - Chadd Pérez RN - 11/02/2023 8:40 AM EDT , Tatianna, phoned asking Dr. Ramirez opinion on a medication [facility], prescribed for patient- Farxiga 10 mg daily. Reports patient had an HI at [facility], and had 2 stents placed. Reports patient has DM 2, issues w/breathing d/t a medication he takes: brillinta, and other health problems. and patientconcerned about him taking farxiga. Reports the side [...] only up once). is going to call [facility] to express her concerns, but would really like Dr. Ramirez's opinion as well. Please phone patient with reply. documented in this encounterLutheran Hospital06-06-2024 Telephone encounter Note * Telephone Encounter - Son Ramirez MD - 11/02/2023 9:55 AM EDT I would recommend OV to discuss concerns with medication and evaluate for new urinary symptoms. I have openings today and would recommend be seen today for this. [facility] Telephone encounter Note* Telephone Encounter - Chadd Pérez RN - 11/02/2023 8:40 AM EDT , Tatianna, phoned asking Dr. Ramirez opinion on a medication [facility], prescribed for patient- Farxiga 10 mg daily. Reports patient had an HI at [facility], and had 2 stents placed. Reports patient has DM 2, issues w/breathing d/t a medication he takes: brillinta, and other health problems. and patientconcerned about him taking farxiga. Reports the side [...] only up once). is going to call [employer] to express her concerns, but would really like Dr. Ramirez's opinion as well. Please phone patient with reply. [facility] Evaluation note* Diagnosis Onset Date Resolution Status Hyperlipidemia chronic Ischemic cardiomyopathy tooling engineer marlo Stented coronary artery May 11, 2023 chronic Ischemic cardiomyopathy tooling engineer marlo Stented coronary artery May 11, 2023 chronic Hyperlipidemia chronic Ischemic cardiomyopathy tooling engineer marlo Stented coronary artery May 11, 2023 [facility] Work Phone: 1(977) 158-770912-14-2023 Evaluation note* Diagnosis Onset Date Resolution Status Hyperlipidemia chronic Ischemic cardiomyopathy tooling engineer marlo Stented coronary artery May 11, 2023 [facility] Work Phone: 1(671) 437-224512-14-2023 Evaluation note* Diagnosis Onset Date Resolution Status Hyperlipidemia acute Ischemic cardiomyopathy acut e Stented coronary artery May 11, 2023 acute Ischemic cardiomyopathy acut e Stented coronary artery May 11, 2023 [facility] Work Phone: 1(251) 841-792811-30-2023 History of Present illness Narrative* Lolis Henderson RN - 04/27/2023 9:[address] Gutierrez, Alissa was provided with Powerstep Gel inserts, size [...] 6.6 10/07/2019 6.4 03/29/2019 6.5 PCP: Son aRmirez MD PAST MEDICAL HISTORY Diagnosis Date CAD (coronary artery disease) Carpal tunnel syndrome on right s/p surgical correction CHF (congestive heart failure) ([facility]) 04/17/2023 EF 45% Chronic left shoulder pain 20+ years, ran over by a sow Diabetes mellitus type II, controlled (HCC) Fatty liver 05/02/2022 on US HTN (hypertension) Mild nonproliferative diabetic retinopathy of both eyes without macular edema associated with type 2 diabetes mellitus (HCC) 04/2020 Obesity S/P angioplasty with stent 03/2023 YUKI to obtuse marginal branch Thrombocytopenia (HCC) Current Outpatient Medications Medication Sig atorvastatin (LIPITOR) [...] Objective: Patient presents to clinic ambulating in [facility] Constitutional: Pt is a well developed 72 [...] without long- term current use of insulin ([facility]) (primary encounter diagnosis) (D36.10) Neuroma Plan: 1. [...] toes. Stands/walks a lot. documented in this encounterLutheran Hospital11-30-2023 Instructions* Patient Instructions* Alissa Gutierrez - [...] (or decreased sensation in your feet) a thread marker should always cut your toenails. Be Careful [...] Go to your health care provider or thread marker to treat these conditions. Powerstep Original Full length. Can purchase at [facility] [employer] and boots,shoes and more here in [place], [employer] in [place] or [place]. Also can find in [employer] in [facility]. Powersteps can also be purchased online, starting [...] everything fits well together documented in this encounterLutheran Hospital11-20-2023 History of Present illness Narrative* Son Ramirez MD - 04/17/2023 10:00 AM EST nitChief Complaint Patient presents with: Transition Of Care HPI Alissa Capps is a 72 year old male who presents here today for Hospital Discharge Follow up/TCM. Patient admitted to [facility] from 04/06 to 04/08 or NSTEMI after presenting to the ED with chest pain. Transerred from ED to cath lab radiological technologist where he had YUKI inserted in the obtuse marginal branch. Noted 80% stenosis LAD which was to be treated in staged manner. Transferred to PCU for med adjustment and echo showing EF 45%. Discharged home with new rx for Coreg 6.25 mg BID, ASA 81 mg, Bilinta 90 mg daily. Increased his Lipitor from 20mg to 40 mg. Appointment scheduled with cardiology ORCHARDIST on 05/02. States that since he has [...] done Influenza Vaccine(1) due on 01/27/2023 Covid-19 Vaccine(2022- season) due on 01/27/2023 Urine Albumin:Creatinine Ratio [...] in detail. 2. Coronary artery 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, unspecified vessel or [...] YR, HIGH DOSE, QUADRIVALENT (FLUZONE HIGH-DOSE) - [employer] COVID-19 VACCINE (2022- SEASON) AGE 12+ YR Son Ramirez MD documented in this encounterLuther[facility] Hospital11-14-2023 History of Present illness Narrative* Son Ramirez MD - 04/11/2023 9:48 AM EST Reviewed. * Gloria Bustos LPN - 04/11/2023 9:23 AM EST TRANSITION CARE MANAGEMENT (TCM) INITIAL CONTACT Senior Consultant Outreach Provider Action/FYI: Patient went to hospital for headache and chest pressure. Had NSTEMI Completed while there. To go back in 4-6 weeks to have another done. Initial contact with patient post discharge, spoke to patient. Patient identified by name and . TRANSITION CARE MANAGEMENT INITIAL OUTREACH DOCUMENTATION: SUMMARY: -Pt discharged from [facility] on 04/06/2023. -Admitted for: Non-ST elevated myocardial [...] hospitalization: Epic in scanning; and printed from [facility]. documented in this encounterLutheran Hospital11-11-2023 Discharge summary Author Dion Sabillon [facility] April 08, 2023 9:24am Note Date/Time April 08, 2023 9:08am [facility] Medical Records Department [address] [place] [address] Instructions for Home/Discharge Instructions 04/08/23905 MR#: [id number] Acct: [id number] Name: ALISSA CAPPS Rep #:[id number] : 1950 72 From: Dion Sabillon DO [...] See Referral Note (as scheduled) Albin Leon ORCHARDIST, ORCHARDIST-C [Med Staff - Adv Practice Prof] - 05/02/23 2:30 am Disposition Disposition (needs filled in before D/C Order can be placed): Home, Self Care 04/08/23923<Electronically signed by Dion Sabillon DO>Dion Sabillon DO CC: Dr. Aleksandr Ramirez MD; Dr. Indu Messer MD; Dr. Jf Dow MD ~ Signed [facility] Work Phone: 1(723) 895-120411-10-2023 Progress note Author [facility] April 07, 2023 4:10pm Note Date/Time April 07, 2023 4:09pm [facility] Medical Records Department [address] [place] [address] Progress Note - Hospitalist 04/07/23 1605 MR#: [id number] Acct: [id number] Name: ALISSA CAPPS Rep #:[id number] : 1950 72 From: Dion Sabillon DO PCP: Dr. Aleksandr Ramirez MD Status :ADM IN Location: [place] [address]- 1 Reason for Visit Reason for Visit: Diagnoses [...] 73.3 H, Lymph % (Auto) 14.3 L, [place] % (Auto) 10.5 H, Eos % (Auto) [...] Phosphatase 137 H, Troponin I HighSens > 709939 H*, Total Protein 6.9, Albumin 3.2, Globulin [...] (non-ST elevated myocardial infarction): PLAN: Plan 1. [id number] will remain on his present medications with [...] 25 minutes Charges/Coding Visit Charges Inpatient E&M: 71923 Subs Hosp L1 04/07/23 1610 <Electronically signed by Dion Sabillon DO> Cosigner Signature (if applicable): CC: ~ Signed [facility] Work Phone: 1(483) 895-244211-10-2023 Chief complaint+Reason for visit Narrative * Chief Complaint S/P [facility] STEMI 04/07 / NEEDS STAGED PCI W NN CAD STATGE PROCEDURE CAD STATGE PROCEDURE PCI with stenting 4-6 W FU PCI with coronary stent PCI with coronary stent Atherosclerotic heart disease of [place] coronary a PCI with coronary stent Reason for Visit Hyperlipidemia Ischemic cardiomyopathy Stented coronary artery Ischemic cardiomyopathy Stented coronary artery Hyperlipidemia Ischemic cardiomyopathy Stented coronary artery [facility] Work Phone: 1([phone]) 410-254811-09-2023 History and physical note Author Jf Dow [facility] April 06, 2023 6:16pm Note Date/Time April 06, 2023 2 :29pm [facility] Medical Records Department [address] [place] [address] H&P Exam - Hospitalist 04/06/23 1428 MR#: [id number] Acct: [id number] Name: ALISSA CAPPS Rep #:[id number] : 1950 72 From: Jf scott MD PCP: Dr. Aleksandr Ramirez MD Status :ADM IN Location: [facility] [id number]- 1 HPI - General General Date of [...] he and his started driving down towards [place] because of the persistent chest pain they [...] to take for heart cath this afternoon. [facility] Medical History Alcohol abuse Diabetes [...] % (Auto) 69.0, Lymph % (Auto) 20.1, [place] % (Auto) 8.6, Eos % (Auto) 1.2, [...] Jamie Santos MD at 13:57 EST , Assessment & Plan Assessment/Plan (1) STEMI (ST elevation myocardial infarction): PLAN: Plan 1. STEMI/HTN/HLD ?Based on the EKG done at the fire station during his episode of chest pain it does appear that he had an inferior HI. Repeat EKG in the ER does not [...] Heparin drip Charges/Coding Visit Charges Inpatient E&M: 17020 Init Hosp L3 04/06/23 1816 <Electronically signed by Jf Dow MD> Cosigner Signature (if applicable): CC: Dr. Aleksandr Ramirez MD; Dr. Jf Dow MD~ Signed [facility] Work Phone: 1(217) 575-953411-09-2023 Consult note Author Indu Messer [facility] April 06, 2023 4:48pm Note Date/Time April 06, 2023 4 :49pm [facility] Medical Records Department [address] [place] [address] Consultation - Cardiology 04/06/23 1646 MR#: [id number] Acct: [id number] Name: ALISSA CAPPS Rep #:[id number] : 1950 72 From: Indu stallings MD PCP: Dr. Aleksandr Ramirez MD Status :ADM IN Location: [place] [id number]- [id number] Assessment & Plan Assessment/Plan (1) Non-STEMI (non-ST [...] pain he was brought to the cardiac Business Performance Specialist and underwent coronary angiography which revealed 100% occlusion of OM1 that wastreated with thrombectomy and drug-eluting stent placement. He does have residual 80% stenosis in the LAD that will be treated in a staged manner. Patient is chest pain-free currently. Review of systems: All systems reviewed. All system negative except in HPI. [facility] Medical History Alcohol abuse Diabetes [...] Applicable: No Charges/Coding Visit Charges Inpatient E&M: 63767 Init Hosp L2 Objective Data Vital Signs: [...] % (Auto) 69.0, Lymph % (Auto) 20.1, [place] % (Auto) 8.6, Eos % (Auto) 1.2, [...] % (Auto) 69.0, Lymph % (Auto) 20.1, [place] % (Auto) 8.6, Eos % (Auto) 1.2, [...] Ramirez MD; Dr. Indu Messer MD~ Signed [facility] Work Phone: 1([phone]) 242-730311-09-2023 Discharge summary Author Nirmal Walter [facility] April 06, 2023 3:49pm Note Date/Time April 06, 2023 1 :24pm [facility] Medical Records Department [address] [place] [address] Emergency Department Summary 04/06/23 MR#: [id number] Acct: [id number] Name: ALISSA CAPPS Rep #:[id number] : 1950 72 From: Nirmal Walter MD PCP: Dr. Aleksandr Ramirez MD Status :ADM IN Location: [address] History of Present Illness Chief Complaint: Chest Pain Narrative Narrative: 72-year-old male past medical history of diabetes, hypercholesterolemia, presents with chest pain that began earlier this morning. He states that around4:00 he awoke and had a slight headache. He is able to take a shower. However,he developed chest pain and discomfort that was more midsternal. They were driving down to [place] and stopped at the fire station in [facility], and were evaluated by paramedics with an [...] pain and pressure has been more consistent. [facility] Medical History Alcohol abuse Diabetes Former smoker [...] be given aspirin and placed on a cardiac rehabilitation program director. RN entered chest pain protocol. I have [...] EKGs that were done at noon in [facility]. Cardiology did evaluate them and compare them [...] % (Auto) 69.0 Lymph % (Auto) 20.1 [place] % (Auto) 8.6 Eos % (Auto) 1.2 [...] Discharge Plan Disposition Disposition: Acute Care Hospital [facility] Discharge Date/Time: 04/06/23 15:14 What to do if you have Problems For any increased pain, shortness of breath, bleeding, nausea or vomiting, chestpain, or any unexpected problems, contact your Primary Care Provider. Call [facility] ([phone]) or report to the closest Emergency Room. Call 911 if necessary. 04/06/23 1537 <Electronically signed by Nirmal Walter MD> Cosigner Signature (if applicable): CC: Dr. Aleksandr Ramirez MD ~ Signed ADDENDUM by Dr. Nirmal Walter MD on 04/06/23 at 1542 I was able to review the CT of the abdomen and pelvis, CT chest radiology reportand there is no evidence of pulmonary embolism or dissection. 04/06/23 1549<Electronically signed by Nirmal Walter MD> Cosigner Signature (if applicable): cc: Dr. Aleksandr Ramirez MD ~* Signed [facility] Work Phone: 1(855) 888-895211-09-2023 Evaluation note* Diagnosis Onset Date Resolution Status Hyperlipidemia acute Ischemic cardiomyopathy acut e Stented coronary artery April 06, 2023 acute [facility] Work Phone: [phone]) 449-441612-19-2022 Miscellaneous Notes* Telephone Encounter - Gloria Bustos LPN - 05/16/2022 11:12 AM EST NORTH 04/18/22 NOV 10/17/22 * Telephone Encounter - Aixa Cerna [facility] - 05/16/2022 9:28 AM EST Patient has [...] patient. Aixa Cerna Pss documented in this encounterLutheran Hospital12-08-2022 Miscellaneous Notes* Telephone Encounter - Nicolette [...] prevent progression to cirrhosis. documented in this encounterLutheran Hospital12-02-2022 History of Present illness Narrative* Loly [...] Not applicable SIGNED BY: Loly Lucero RDMS Andi April 29, 2022 8:17 AM documented in this encounterLutheran Hospital12-02-2022 History of Present illness Narrative* Loly [...] Not applicable SIGNED BY: Loly Lucero RDMS Andi April 29, 2022 8:16 AM documented in this [facility]11-29-2022 Instructions* Patient Instructions* Alissa Brenda - 04/26/2022 9:21 AM EST Diabetes Foot [...] (or decreased sensation in your feet) a thread marker should always cut your toenails. Be Careful [...] Go to your health care provider or thread marker to treat these conditions. documented in this encounterLutheran Hospital11-29-2022 History of Present illness Narrative* Alissa [...] Objective: Patient presents to clinic ambulating in [place] Constitutional: Pt is a well developed 71 [...] neuropathy, without long-term current use of insulin ([facility]) Plan: 1. Patient was seen and evaluated. [...] Care Elinor Salvador LPN documented in this encounterLutheran Hospital11-23-2022 Miscellaneous Notes* Telephone Encounter - Elizabeth West LPN - 04/20/2022 1:58 PM EST Patient notified of results, verbalizes understanding of instructions. Elizabeth West LPN * Telephone Encounter - Son Ramirez MD - 04/20/2022 1:44 PM EST Alk phos remains elevated with high liver fraction. Recommend US of the liver for further evaluation. documented in this encounterLutheran Hospital11-21-2022 History of Present illness Narrative* Son [...] Abs Lymph 1.00 - 4.00 k/uL 1.75 Montrose% % 9.2 Abs [place] <0.87 k/uL 0.61 Eosin% % 2.0 Abs [...] arise. 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 History of tobacco use - ICD9: V15.82, ICD10: Z87.891 - US SCREENING FOR AAA Son Ramirez MD documented in this encounterLutheran Hospital06-16-2022 Miscellaneous Notes* Telephone Encounter - Viri Flores Pss - 11/11/2021 9:19 AM EDT Pharmacy verified in [facility] Patient has been identified by name [...] advise. Viri Flores Pss documented in this encounterLutheran Hospital05-25-2022 Miscellaneous Notes* Addendum Note - Son Ramirez MD - 10/20/2021 11:22 AM EDT Addended by: SON RAMIREZ on: 10/20/2021 11:22 AM Modules accepted: Orders documented in this encounterLutheran Hospital05-20-2022 History of Present illness Narrative* Son [...] Lymph 1.00 - 4.00 k/uL 2.26 1.75 [place]rose% % 10.2 9.2 Abs [place]rose <0.87 k/uL 0.77 0.61 Eosin% % 2.6 [...] arise. - Discussed diabetic education issues of mcc diabetic complications, hypoglycemic symptoms, hyperglycemic symptoms, diet, [...] LFTs. Son Ramirez MD documented in this encounterLutheran Hospital05-16-2022 Miscellaneous Notes* Telephone Encounter - Gloria [...] advise, Zahra Brown RN documented in this encounterLutheran Hospital04-01-2022 Instructions* Patient Instructions* Angelika Torres APRN.HUMAN SERVICES INSTRUCTOR - 08/27/2021 10:08 AM EDT Ear Infection [...] contagious, but need treatment. documented in this encounterLutheran Hospital04-01-2022 History of Present illness Narrative* Angelika Torres APRN.HA - 08/27/2021 10:06 AM EDT CC: Patient [...] CARPAL TUNNEL right COLONOSCOP W/ OR W/O RUST SPEC 03/29/2021 -normal biopsies, per DP repeat [...] Patient agreeable to treatment plan. Angelika Torres APRN.HA documented in this encounterLutheran Hospital11-01-2021 History of Past illness Narrative* Problem Noted Date Resolved Date Colitis 03/29/2021 03/29/2021 documented as of this encounter (statuses as of 08/27/2021) [facility] of Past illness Narrative* Problem Noted Date Resolved Date Colitis 03/29/2021 03/29/2021 documented as of this encounter (statuses as of 10/12/2021) [facility] of Past illness Narrative* Problem Noted Date Resolved Date Colitis 03/29/2021 03/29/2021 documented as of this encounter (statuses as of 10/20/2021) [address]01-2021 History of Past illness Narrative* Problem Noted Date Resolved Date Colitis 03/29/2021 03/29/2021 documented as of this encounter (statuses as of 11/11/2021) [address]01-2021 History of Past illness Narrative* Problem Noted Date Resolved Date Colitis 03/29/2021 03/29/2021 documented as of this encounter (statuses as of 04/18/2022) [facility] of Past illness Narrative* Problem Noted Date Resolved Date Colitis 03/29/2021 03/29/2021 documented as of this encounter (statuses as of 04/26/2022) [facility] of Past illness Narrative* Problem Noted Date Resolved Date Colitis 03/29/2021 03/29/2021 documented as of this encounter (statuses as of 05/05/2022) [facility] of Past illness Narrative* Problem Noted Date Resolved Date Colitis 03/29/2021 03/29/2021 documented as of this encounter (statuses as of 05/16/2022) [facility] of Past illness Narrative* Problem Noted Date Resolved Date Colitis 03/29/2021 03/29/2021 documented as of this encounter (statuses as of 07/14/2022) [facility] of Past illness Narrative* Problem Noted Date Diagnosed Date Resolved Date Colitis 03/29/2021 03/29/2021 Thrombocytopenia 10/23/2020 10/17/2022 documented as of this encounter (statuses as of 04/03/2023) [address]01-2021 History of Past illness Narrative* Problem Noted Date Diagnosed Date Resolved Date Colitis 03/29/2021 03/29/2021 Thrombocytopenia 10/23/2020 10/17/2022 documented as of this encounter (statuses as of 04/03/2023) [address]01-2021 History of Past illness Narrative* Problem Noted Date Diagnosed Date Resolved Date Colitis 03/29/2021 03/29/2021 Thrombocytopenia 10/23/2020 10/17/2022 documented as of this encounter (statuses as of 04/18/2023) [facility] of Past illness Narrative* Problem Noted Date Diagnosed Date Resolved Date Colitis 03/29/2021 03/29/2021 Thrombocytopenia 10/23/2020 10/17/2022 documented as of this encounter (statuses as of 04/26/2023) [facility] of Past illness Narrative* Problem Noted Date Diagnosed Date Resolved Date Colitis 03/29/2021 03/29/2021 Thrombocytopenia 10/23/2020 10/17/2022 documented as of this encounter (statuses as of 04/27/2023) [facility] NoteHNO ID: [id number] Author: RT Macarena(R) Service: Nuclear Medicine Author Type: Insurance Agents Supervisor Type: Progress Notes Filed: 01/19/2021 9:07 AM [...] DIAGNOSTIC CT PERFORMED: No IV SITE: Ambulatory: NM only - direct IV injection in the Right hand POST EXAM PIV STATUS: Not applicable PROCEDURE TYPE: NM INJECT: PET/CT BODY SCAN. 14.4 mCi F18 FDG. No other medications given.. ADMINISTRATION TIME: 0900 PATIENT DISCHARGED TO: Ambulatory patient, left NM department area. A Diagnostic radioactive procedure has taken place, with no further precautions necessary other than routine body substance precautions. More information regarding radiation safety can be found using this link: [email or web address] SIGNATURE: RT Macarena(R) PATIENT NAME: Alissa Capps DATE: January 19, 2021 TIME: 9:06 AM PAGER/CONTACT #:[facility] summary [facility]du [facility] May 12, 2023 1:54pm Note Date/Time May 12, 2023 1:55pm [facility] Medical Records Department [address] [place] [address] Discharge Summary 05/12/23 1352 MR#: [id number] Acct: [id number] Name: ALISSA CAPPS Rep #:[id number] : 1950 72 From: Indu stallings MD PCP: Dr. Aleksandr Ramirez MD Status :ADM OSEAS Location: [place] [address] Providers Date of Admission: 05/11/23 Primary Care [...] condition. He will follow-up with his primary plant protection supervisor as an outpatient. (2) Ischemic cardiomyopathy: Status: [...] for 5 days. Follow-up with your primary plant protection supervisor Meaningful Use Info Meaningful Use Diagnoses (Choose [...] can be placed): Home, Self Care 05/12/23 1354 <Electronically signed by Indu Messer MD> Cosigner Signature (if applicable): CC: Dr. Aleksandr Ramirez MD; Dr. Indu Messer MD~ Signed [facility] Work Phone: Evaluation noteNo assessment information available [facility] Work Phone: Evaluation note* Diagnosis Non-recurrent acute suppurative otitis media of right ear without spontaneous rupture of tympanic membrane- Primary documented in this encounter [facility] note* Diagnosis Controlled type 2 diabetes mellitus without complication, without long-term current use of insulin (HCC)- Primary Acute pancreatitis without infection or necrosis, unspecified pancreatitis type documented in this encounter [facility] note* Diagnosis Controlled type 2 diabetes [...] nonalcoholic liver disease documented in this encounter [facility] note* Diagnosis Controlled type 2 diabetes mellitus without complication, without long-term current use of insulin (HCC) documented in this encounter [facility] note* Diagnosis Controlled type 2 diabetes [...] hazards to health documented in this encounter [facility] note* Diagnosis Controlled type 2 diabetes mellitus without complication, without long-term current use of insulin (HCC) Type 2 diabetes mellitus with diabetic neuropathy, without long-term current use of insulin (HCC) documented in this encounter [facility] note* Diagnosis Encounter for abdominal aortic aneurysm (AAA) screening- Primary documented in this encounter [facility] note* Diagnosis Controlled type 2 diabetes mellitus without complication, without long-term current use of insulin (HCC) documented in this encounter [facility] note* Diagnosis Elevated alkaline phosphatase level- Primary Other nonspecific abnormal serum enzyme levels documented in this encounter [facility] note* Diagnosis History of tobacco use Personal history of tobacco use, presenting hazards to health documented in this encounter [facility] note* Diagnosis Elevated alkaline phosphatase level Other nonspecific abnormal serum enzyme levels documented in this encounter [facility] note* Diagnosis Onset Date Resolution Status Non-STEMI (non-ST elevated myocardial infarction) acute STEMI (ST elevation myocardial infarction) acute [facility] Work Phone: Evaluation note* Diagnosis NSTEMI (non-ST elevated myocardial infarction) (HCC)- Primary Acute myocardial infarction, subendocardial infarction, episode of care unspecified Coronary artery 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, unspecified vessel or [...] single bacterial disease [facility]* Diagnosis Controlled type 2 diabetes mellitus without complication, without long-term current use of insulin ([facility])- Primary Neuroma Other benign neoplasm of connective and other soft tissue of unspecified site [facility] this encounter [facility]* Diagnosis Controlled type 2 diabetes mellitus without complication, without long-term current use of insulin (HCC)- Primary Coronary artery 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, unspecified vessel or [...] diabetes mellitus (HCC) [facility]* Diagnosis Controlled type 2 diabetes mellitus without complication, without long-term current use of insulin ([facility]) documented [facility] this encounter [facility]* Diagnosis Coronary artery 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, unspecified vessel or lesion type Controlled type 2 diabetes mellitus without complication, without long-term current use of insulin ([facility]) documented [facility] this encounter [facility]* Diagnosis Diabetic polyneuropathy associated with type 2 diabetes mellitus (HCC)- Primary Ingrowing toenail Ingrowing nail Diminished pulses in lower extremity Other symptoms involving cardiovascular system [facility]* Diagnosis Controlled type 2 diabetes mellitus without complication, without long-term current use of insulin (HCC)- Primary [facility]* Diagnosis Controlled type 2 diabetes mellitus without complication, without long-term current use of insulin ([facility])- Primary Coronary artery 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, unspecified vessel or lesion type Encounter for immunization Need for other specified prophylactic vaccination against single bacterial disease Mild nonproliferative diabetic retinopathy of both eyes without macular edema associated with type 2 diabetes mellitus (HCC) Primary hypertension Unspecified essential hypertension Hyperlipidemia, unspecified hyperlipidemia type Thrombocytopenia (HCC) Thrombocytopenia, unspecified Obesity, Class II, BMI 35-39.9 Obesity, unspecified S/P arterial stent Other postprocedural status documented [facility] this encounter [facility]* Diagnosis Primary hypertension- Primary Unspecified essential hypertension Controlled type 2 diabetes mellitus without complication, without long-term current use of insulin (HCC) Diabetic polyneuropathy associated with type 2 diabetes mellitus (HCC) Coronary artery 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, unspecified vessel or lesion type S/P angioplasty with stent Other postprocedural status Systolic congestive heart failure, unspecified HF chronicity (HCC) Obesity, Class II, BMI 35-39.9 Obesity, unspecified RAMOS (nonalcoholic steatohepatitis) Other chronic nonalcoholic liver disease Gastroesophageal reflux disease, unspecified whether esophagitis present documented in [facility] Diagnosis Onset Date Resolution Status Admit Date Atherosclerotic heart disease of [place] coronary artery without angina pectoris acute December 11, 2024 7:50am Dyslipidemia chronic December 11 7:50am Hypertension chronic December 11 7:50am Ischemic cardiomyopathy chronic J eddie 2024 7:50am Stented coronary artery May 11, 2023 chr onic December 11, 2024 7:50am [facility] Work Phone: Evaluation note* Diagnosis Controlled type 2 diabetes mellitus without complication, without long-term current use of insulin (HCC) [facility] Dis[facility] instructionsAdditional Instructions Please take your Percocet and Toradol together on a scheduled basis to help control pain and keep yourself well-hydrated and stay active to help pass your stone. If you develop a fever of 100.4 or higher or have intractable pain despite taking your medication or any further concerns please return to the ER for repeat evaluation.[facility] Work Phone: Reason for referral (narrative)* Diagnostic Procedure Only (Routine) - Closed Specialty Diagnoses / Procedures Referred By Contac t Referred To Contact US IMAGING Diagnoses Elevated alkaline phosphatase level Procedures US ABD RT UPPER QUADRANT US ABDOMINAL REAL TIME W/IMAGE LIMITED Son Ramirez MD [address] [place] [address] Us Imaging Referral ID Status Reason Start Date Expiration Date V isits Requested Visits Authorized [id number] Closed Auto-Generate d Referral 04/20/2022 05/20/[address] [facility] for referral (narrative)* Diagnostic Procedure Only (Routine) - Closed Specialty Diagnoses / Procedures Referred By Contac t Referred To Contact US IMAGING Diagnoses History of tobacco use Procedures US SCREENING FOR AAA (2017) US ABDOMINAL AORTA REAL TIME SCREEN STUDY AAA Son Ramirez MD [address] [place] [address] [place] [address] Referral ID Status Reason Start Date Expiration Date V isits Requested Visits Authorized [id number] Closed Auto-Generate d Referral 04/18/2022 05/18/[address] [facility] for referral (narrative)* Diagnostic Procedure Only (Routine) - Closed Specialty Diagnoses / Procedures Referred By Clinton t Referred To Contact US IMAGING Diagnoses Elevated alkaline phosphatase level Procedures US ABD RT UPPER QUADRANT US ABDOMINAL REAL TIME W/IMAGE LIMITED Son Ramirez MD [address] [place] [address] [place] [address] Referral ID Status Reason Start Date Expiration Date V isits Requested Visits Authorized [id number] Closed Auto-Generate d Referral 04/20/2022 05/20/[address] [facility] for referral (narrative)* Outpatient Procedure (Routine) - Authorized Specialty Diagnoses / Procedures Referred By Vanessaac t Referred To Contact [facility] Diagnoses Diminished pulses in lower extremity Procedures PVR ANK PRESS NANCY VAS LAB NON-INVAS PHYSIOLOGIC STD EXTREMITY ART 2 LEVEL Test[facility]ostonAl[facility] [address] [address] [facility] [place] [address] [place] [address] Referral ID Status Reason Start Date Expiration Date Visits Requested Visits Authorized [id number] Authorized Auto-Generat ed Referral 04/29/2024 04/29/2025 1 1 [facility] for referral (narrative)No reason for referral information availableLeota [employer] Work Phone: [facility] for visit Narrative* Diagnostic Procedure Only (Routine) - Closed Specialty Diagnoses / Procedures Referred By Contac t Referred To Contact US IMAGING Diagnoses History of tobacco use Procedures US SCREENING FOR AAA (2017) US ABDOMINAL AORTA REAL TIME SCREEN STUDY AAA Son Ramirez MD [address] [place] [id number] Us Imaging [id number] Referral ID Status Reason Start Date Expiration Date V isits Requested Visits Authorized [id number] Closed Auto-Generate d Referral 04/18/2022 05/18/2023 1 1 [facility] for visit Narrative* Diagnostic Procedure Only (Routine) - Closed Specialty Diagnoses / Procedures Referred By Contac t Referred To Contact US IMAGING Diagnoses Elevated alkaline phosphatase level Procedures US ABD RT UPPER QUADRANT US ABDOMINAL REAL TIME W/IMAGE LIMITED Son Ramirez MD [address] [place] [id number] Us Imaging [id number] Referral ID Status Reason Start Date Expiration Date V isits Requested Visits Authorized [id number] Closed Auto-Generate d Referral 04/20/2022 05/20/2023 1 1 [facility] Summary Purpose Family History No Family History Records Found Relationship Condition Age at Onset Recorded Date/T rachelle father Diabetes mellitus Unknown mother Hypertension Unknown Advance Directives No Advanced Directives Records Found Advance Directive Response Recorded Date/ Time Living Will Yes March 21 10:41am Power of Utility Manager Yes March 21, 2021 10:41am Documents on File Type Date 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 Advance Directive(s) 03/29/2021 7:16 AM Advance Directive(s) 03/04/2021 5:14 PM Advance Directive Response Recorded Date/ Time Name of Medical Power of Utility Manager TATIANNA MENDOZA April 06, 2023 1:01pm Living Will No April 06 5:11pm Power of Utility Manager No April 06, 2023 5:11pm Advance Directive Response Recorded Date/ Time Advance Directives on File Yes Decem 2022 7:38am Name of Medical Power of Utility Manager Tatianna () May 11, 2023 4:00pm Name of Medical Power of Utility Manager TATIANNA MENDOZA April 06, 2023 1:01pm Advance Directives on File No Mayua 2023 1:07pm Advance Directives Yes April 7:38am Living Will Yes May 31 1:27pm Power of Utility Manager Yes May 31, 024 1:27pm Advance Directive Response Recorded Date/ Time Advance Directives on File Yes Decem 2022 8:38am Name of Medical Power of Utility Manager Tatianna () May 11, 2023 5:00pm Advance Directives on File No Mayua 2023 2:07pm Advance Directives Yes April 8:38am Living Will Yes May 31 2:27pm Power of Utility Manager Yes May 31, 2 024 2:27pm Advance Directive Response Recorded Date/ Time Advance Directives on File No Mayua 2023 2:07pm Advance Directives Yes April 8:38am Living Will Yes May 31 2:27pm Power of Utility Manager Yes May 31, 2 024 2:27pm Advance Directive Response Recorded Date/ Time Advance Directives on File Yes Decem 2022 7:38am Name of Medical Power of Utility Manager Tatianna () May 11, 2023 4:00pm Advance Directives Yes April 7:38am Living Will Yes May 11, 023 4:00pm Power of Utility Manager Yes May 11, 2023 4:00pm Name of Medical Power of Utility Manager TATIANNA MENDOZA April 06, 2023 1:01pm Advance Directive Response Recorded Date/ Time Advance Directives Yes April 8:38am Advance Directive Response Recorded Date/ Time Do you have a Healthcare Power of Utility Manager? No January 14, 2025 10:32pm Advance Directives Yes April 8:38am Chief Complaint and Reason for Visit Chief Complaint Admit Date 6 M FU December 11, 2024 7:50 am LLQ PAIN January 14, 2025 9: 10pm Reason for Visit Admit Date Atherosclerotic heart diseas e of [place] coronary artery without angina pectoris December 11, 2024 7:50am Dyslipidemia December 11, 2024 7:50 am Hypertension December 11, 2024 7:50 am Ischemic cardiomyopathy December 11, 2024 7:50am Stented coronary artery December 11, 2024 7:50am Chief Complaint SOFT TISSUE MASS LEF T SHOULDER LT SHOULDER JOINT / RX HERE Chief Complaint SPRAIN OF RIGHT SHOU LDER JOINT. RX HERE NSTEMI NSTEMI NSTEMI Reason for Visit Non-STEMI (non-ST el evated myocardial infarction) STEMI (ST elevation myocardial infarction) Chief Complaint SPRAIN OF RIGHT SHOU LDER JOINT. RX HERE NSTEMI NSTEMI AM EKG NSTEMI AM EKG NSTEMI S/P [facility] STEMI 04/07 / NEEDS STAGED PCI W NN Reason for Visit Hyperlipidemia Ischemic cardiomyopathy Stented coronary artery Chief Complaint NSTEMI NSTEMI AM EKG NSTEMI AM EKG NSTEMI S/P [facility] STEMI 04/07 / NEEDS STAGED PCI W NN CAD STATGE PROCEDURE CAD STATGE PROCEDURE PCI with stenting 4-6 W FU PCI with coronary stent Reason for Visit Hyperlipidemia Ischemic cardiomyopathy Stented coronary artery Ischemic cardiomyopathy Stented coronary artery Hyperlipidemia Ischemic cardiomyopathy Stented coronary artery Chief Complaint NSTEMI NSTEMI AM EKG NSTEMI AM EKG NSTEMI S/P [facility] STEMI 04/07 / NEEDS STAGED PCI W [...] with coronary stent Atherosclerotic heart disease of [place] coronary a PCI with coronary stent PCI with coronary stent Reason for Visit Hyperlipidemia Ischemic cardiomyopathy Stented coronary artery Chief Complaint SPRAIN OF RIGHT SHOU LDER JOINT. RX HERE NSTEMI NSTEMI AM EKG NSTEMI AM EKG NSTEMI S/P [facility] STEMI 04/07 / NEEDS STAGED PCI W NN CAD STATGE PROCEDURE CAD STATGE PROCEDURE Reason for Visit Hyperlipidemia Ischemic cardiomyopathy Stented coronary artery Ischemic cardiomyopathy Stented coronary artery Chief Complaint Admit Date 6 M FU December 11, 2024 7:50 am Chief Complaint Admit Date 6 M FU December 11, 2024 7:50 am LLQ PAIN January 14, 2025 9: 10pm shortness of breath, STOP BANG 6 January 22, 2025 7:34pm Sleep problems January 31, 2025 7:54am Reason for Visit Admit Date Atherosclerotic heart diseas e of [place] coronary artery without angina pectoris December 11, 2024 7:50am Dyslipidemia December 11, 2024 7:50 am Hypertension December 11, 2024 7:50 am Ischemic cardiomyopathy December 11, 2024 7:50am Stented coronary artery December 11, 2024 7:50am Obstructive sleep apnea January 31, 025 7:54am Reason for Visit Admit Date Atherosclerotic heart diseas e of [place] coronary artery without angina pectoris December 11, 2024 7:50am Dyslipidemia December 11, 2024 7:50 am Hypertension December 11, 2024 7:50 am Ischemic cardiomyopathy December 11, 2024 7:50am Stented coronary artery December 11, 2024 7:50am Obstructive sleep apnea January 31, 2 025 7:54am Diabetes January 31, 2025 7:54am Hypertension January 31, 2025 7:54am Reason for Referral Specialty Diagnoses / Procedures Referred By Contac t Referred To Contact Podiatry Diagnoses Controlled type 2 diabetes mellitus without complication, without long-term current use of insulin (HCC) Type 2 diabetes mellitus with diabetic neuropathy, without long-term current use of insulin (HCC) Procedures CONSULT TO PODIATRY OFFICE/OUTPATIENT [facility] 60-74 MINUTES Son Ramirez MD [address] [place] [address] Referral ID Status Reason Start Date Expiration Date Visits Requested Visits Authorized [id number] Authorized PCP Requested Referral 2 04/18/2023 1 1 Specialty Diagnoses / Procedures Referred By Contjewel t Referred To Contact US IMAGING Diagnoses History of tobacco use Procedures US SCREENING FOR AAA (2016) US ABDOMINAL AORTA REAL TIME SCREEN STUDY AAA Son Ramirez MD [address] [place] [address] Us Imaging Referral ID Status Reason Start Date Expiration Date Visits Requested Visits Authorized [id number] Authorized Auto-Generat ed Referral 2 05/18/2023 1 1 Additional Source Comments (unrecognized sect ion and content) No Status Records FoundNo Status Records FoundNo Status Records FoundNo Status Records FoundNo Status Records Found INFORMATION SOURCE (unrecogn ized section and content) DATE CREATED AUTHOR 01/20/2021 [facility] DATE CREATED AUTHOR AUTHOR'S ORGANIZ ATION 04/23/2021 [facility] DATE CREATED AUTHOR AUTHOR'S ORGANIZ ATION 01/05/2023 [facility] DATE CREATED AUTHOR AUTHOR'S ORGANIZ ATION 02/08/2025 [facility] DATE CREATED AUTHOR AUTHOR'S ORGANIZ ATION 03/23/2025 [facility] Goals (unrecognized section and content) Goals [...] or prosecute any alcohol or drug abuse patient.[facility] the event this information is protected by the Federal Confidentiality of Alcohol and Drug Abuse Patient Records regulations: The Federal rules restrict any use of the information to criminally investigate or prosecute any alcohol or drug abuse patient.[facility] Hospital[facility] the event this information is protected by the Federal Confidentiality of Alcohol and Drug Abuse Patient Records regulations: The Federal rules restrict any use of the information to criminally investigate or prosecute any alcohol or drug abuse patient.[facility] Hospital[facility] the event this information is protected by the Federal Confidentiality of Alcohol and Drug Abuse Patient Records regulations: The Federal rules restrict any use of the information to criminally investigate or prosecute any alcohol or drug abuse patient.[facility] Hospital[facility] the event this information is protected by the Federal Confidentiality of Alcohol and Drug Abuse Patient Records regulations: The Federal rules restrict any use of the information to criminally investigate or prosecute any alcohol or drug abuse patient.[facility] Hospital[facility] the event this information is protected by the Federal Confidentiality of Alcohol and Drug Abuse Patient Records regulations: The Federal rules restrict any use of the information to criminally investigate or prosecute any alcohol or drug abuse patient.[facility] HospitalIn the event this information is protected by the Federal Confidentiality of Alcohol and Drug Abuse Patient Records regulations: The Federal rules restrict any use of the information to criminally investigate or prosecute any alcohol or drug abuse patient.[facility] HospitalIn the event this information is protected by the Federal Confidentiality of Alcohol and Drug Abuse Patient Records regulations: The Federal rules restrict any use of the information to criminally investigate or prosecute any alcohol or drug abuse patient.[facility] HospitalIn the event this information is protected by the Federal Confidentiality of Alcohol and Drug Abuse Patient Records regulations: The Federal rules restrict any use of the information to criminally investigate or prosecute any alcohol or drug abuse patient.[facility] Hospital[facility] the event this information is protected by the Federal Confidentiality of Alcohol and Drug Abuse Patient Records regulations: The Federal rules restrict any use of the information to criminally investigate or prosecute any alcohol or drug abuse patient.[facility] HospitalIn the event this information is protected by the Federal Confidentiality of Alcohol and Drug Abuse Patient Records regulations: The Federal rules restrict any use of the information to criminally investigate or prosecute any alcohol or drug abuse patient.[facility] HospitalIn the event this information is protected by the Federal Confidentiality of Alcohol and Drug Abuse Patient Records regulations: The Federal rules restrict any use of the information to criminally investigate or prosecute any alcohol or drug abuse patient.[facility] HospitalIn the event this information is protected by the Federal Confidentiality of Alcohol and Drug Abuse Patient Records regulations: The Federal rules restrict any use of the information to criminally investigate or prosecute any alcohol or drug abuse patient.[facility] Hospital[facility] the event this information is protected by the Federal Confidentiality of Alcohol and Drug Abuse Patient Records regulations: The Federal rules restrict any use of the information to criminally investigate or prosecute any alcohol or drug abuse patient.[facility] Hospital[facility] the event this information is protected by the Federal Confidentiality of Alcohol and Drug Abuse Patient Records regulations: The Federal rules restrict any use of the information to criminally investigate or prosecute any alcohol or drug abuse patient.[facility] HospitalIn the event this information is protected by the Federal Confidentiality of Alcohol and Drug Abuse Patient Records regulations: The Federal rules restrict any use of the information to criminally investigate or prosecute any alcohol or drug abuse patient.[facility] HospitalIn the event this information is protected by the Federal Confidentiality of Alcohol and Drug Abuse Patient Records regulations: The Federal rules restrict any use of the information to criminally investigate or prosecute any alcohol or drug abuse patient.[facility] the event this information is protected by the Federal Confidentiality of Alcohol and Drug Abuse Patient Records regulations: The Federal rules restrict any use of the information to criminally investigate or prosecute any alcohol or drug abuse patient.[facility] HospitalIn the event this information is protected by the Federal Confidentiality of Alcohol and Drug Abuse Patient Records regulations: The Federal rules restrict any use of the information to criminally investigate or prosecute any alcohol or drug abuse patient.[facility] HospitalIn the event this information is protected by the Federal Confidentiality of Alcohol and Drug Abuse Patient Records regulations: The Federal rules restrict any use of the information to criminally investigate or prosecute any alcohol or drug abuse patient.[facility] HospitalIn the event this information is protected by the Federal Confidentiality of Alcohol and Drug Abuse Patient Records regulations: The Federal rules restrict any use of the information to criminally investigate or prosecute any alcohol or drug abuse patient.[facility] HospitalIn the event this information is protected by the Federal Confidentiality of Alcohol and Drug Abuse Patient Records regulations: The Federal rules restrict any use of the information to criminally investigate or prosecute any alcohol or drug abuse patient.[facility] HospitalIn the event this information is protected by the Federal Confidentiality of Alcohol and Drug Abuse Patient Records regulations: The Federal rules restrict any use of the information to criminally investigate or prosecute any alcohol or drug abuse patient.[facility] HospitalIn the event this information is protected by the Federal Confidentiality of Alcohol and Drug Abuse Patient Records regulations: The Federal rules restrict any use of the information to criminally investigate or prosecute any alcohol or drug abuse patient.[facility] HospitalIn the event this information is protected by the Federal Confidentiality of Alcohol and Drug Abuse Patient Records regulations: The Federal rules restrict any use of the information to criminally investigate or prosecute any alcohol or drug abuse patient.[facility] HospitalIn the event this information is protected by the Federal Confidentiality of Alcohol and Drug Abuse Patient Records regulations: The Federal rules restrict any use of the information to criminally investigate or prosecute any alcohol or drug abuse patient.[facility] HospitalIn the event this information is protected by the Federal Confidentiality of Alcohol and Drug Abuse Patient Records regulations: The Federal rules restrict any use of the information to criminally investigate or prosecute any alcohol or drug abuse patient.[facility] Reason for Visit (unrecogniz ed section [...] Referred By Clinton [place] Referred To Contact Podiatry Diagnoses Controlled type 2 diabetes mellitus without complication, without long-term current use of insulin (HCC) Type 2 diabetes mellitus with diabetic neuropathy, without long-term current use of insulin (HCC) Procedures CONSULT TO PODIATRY OFFICE/OUTPATIENT NEW HIGH MDM 60-74 MINUTES Son Ramirez MD [address] [place] [address] Referral ID Status Reason Start Date Expiration Date V isits Requested Visits Authorized [id number] Closed PCP Requested Referral 04/18/2022 04/18/2023 1 1 Reason Comments Results Reason Onset Date Comments Refill Request 05/16/2022 Reason Comments Results Reason Comments Radiology US Specialty Diagnoses / Procedures Referred By Contac t Referred To Contact US IMAGING Diagnoses Elevated alkaline phosphatase level Procedures US ABD RT UPPER QUADRANT US ABDOMINAL REAL TIME W/IMAGE LIMITED Son Ramirez MD [address] [place] [address] [place] [address] Referral ID Status Reason Start Date Expiration Date V isits Requested Visits Authorized [id number] Closed Auto-Generate d Referral 04/20/2022 05/20/2023 1 1 Specialty Diagnoses / Procedures Referred By Contac t Referred To Contact US IMAGING Diagnoses History of tobacco use Procedures US SCREENING FOR AAA (2017) US ABDOMINAL AORTA REAL TIME SCREEN STUDY AAA Son Ramirez MD [address] [place] [address] [place] [address] Referral ID Status Reason Start Date Expiration Date V isits Requested Visits Authorized [id number] Closed Auto-Generate d Referral 04/18/2022 05/18/2023 1 [...] Reason Onset Date Comments Refill Request 01/09/2025 Reason Onset Date Comments Population Health Navigation Outreach 02/06/2025 [employer] [facility] Care Teams (unrecognized sec tion and content) Marketing Executive Relationship Specialty Start Date End Date Son Ramirez MD [address] [place], [place] [address] PCP - General Family Practice 04/19/17 Marketing Executive Relationship Specialty Start Date End Date Son Ramirez MD [address] [facility] [place] [address] PCP - General Family Practice 04/19/17 Marketing Executive Relationship Specialty Start Date End Date Son Ramirez MD [address] [facility] [place] [address] PCP - General Family Practice 04/19/17 Marketing Executive Relationship Specialty Start Date End Date Son Ramirez MD [address] [facility] [place] [address] PCP - General Family Medicine 04/19/17 Marketing Executive Relationship Specialty Start Date End Date Son Ramirez MD [address] [facility] [place] [address] PCP - General Family Medicine 04/19/17 Marketing Executive Relationship Specialty Start Date End Date Son Ramirez MD [address] [facility] [place] [address] PCP - General Family Medicine 04/19/17 Marketing Executive Relationship Specialty Start Date End Date Son Ramirez MD [address] [facility] [place] [address] PCP - General Family Medicine 04/19/17 Marketing Executive Relationship Specialty Start Date End Date Son Ramirez MD [address] [facility] [place] [address] PCP - General Family Medicine 04/19/17 Marketing Executive Relationship Specialty Start Date End Date Son Ramirez MD [address] [facility] [place] [address] PCP - General Family Medicine 04/19/17 Marketing Executive Relationship Specialty Start Date End Date Son Ramirez MD [address] [place] [address] PCP - General Family Medicine 04/19/17 Team [...] Provider Active Dr. Dion Sabillon DO Attending Provider, Other Pro vider Active Team Status: Active Member Role Status Dates Dr. Aleksandr Ramirez MD Primary Care Provider Acti ve Dr. Indu Messer MD Attending Provider Activ e Team Status: Inactive Member Role Status Dates Dr. Aleksandr Ramirez MD Primary Care Provider Acti ve Dr. Isaiah Mccarty MD Attending Provider, Referring P stephenie Active Team Status: Inactive Member Role Status Dates Dr. Aleksandr Ramirez MD Primary Care Provider Acti ve Nirmal Walter MD Emergency Provider Active Dr. Jf Dow MD Admit Provider, Other Pro vider Active Dr. Indu Messer MD Other Provider Active Dr. Dion Sabillon DO Attending Provider Active Marketing Executive Relationship Specialty Start Date End Date Son Ramirez MD [address] [place], [place] [id number] PCP - General Family Medicine 04/19/17 Marketing Executive Relationship Specialty Start Date End Date Son Ramirez MD [address] [place], [place] [id number] PCP - General Family Medicine 04/19/17 Marketing Executive Relationship Specialty Start Date End Date Son Ramirez MD [address] [place] [address] PCP - General Family Medicine 04/19/17 Team Status: Inactive Member Role Status Dates Dr. Aleksandr Ramirez MD Primary Care Provider, Ref erring Provider Active Albin Leon ORCHARDIST, ORCHARDIST-C Attending Provider Active Team Status: Active Member [...] Primary Care Provider Acti ve Albin Leon ORCHARDIST, ORCHARDIST-C Attending Provider, Referring Pro vider Active Team [...] Dr. Tino Garcia MD Attending Provider Active Marketing Executive Relationship Specialty Start Date End Date Son Ramirez MD [address] [place], [place] [address] PCP - General Family Medicine 04/19/17 Marketing Executive Relationship Specialty Start Date End Date Son Ramirez MD [address] [facility] [place] [address] PCP - General Family Medicine 04/19/17 Marketing Executive Relationship Specialty Start Date End Date Son Ramirez MD [address] [facility] [place] [address] PCP - General Family Medicine 04/19/17 Marketing Executive Relationship Specialty Start Date End Date Son Ramirez MD [address] [facility] [place] [address] PCP - General Family Medicine 04/19/17 Marketing Executive Relationship Specialty Start Date End Date Son Ramirez MD [address] [facility] [place] [address] PCP - General Family Medicine 04/19/17 Marketing Executive Relationship Specialty Start Date End Date Son Ramirez MD [address] [facility] [place] [address] PCP - General Family Medicine 04/19/17 PodlogarUmu APRN.HUMAN SERVICES INSTRUCTOR [address] [facility] [place] [address] [employer] Supervisor Family Medicine 05/04/24 Marketing Executive Relationship Specialty Start Date End Date Son Ramirez MD [address] [facility] [place] [address] PCP - General Family Medicine 04/19/17 PodlogarUmu, BRUCE.HUMAN SERVICES INSTRUCTOR [address] [facility] [place] [address] Steamfitter Supervisor Family Medicine 05/04/24 Marketing Executive Relationship Specialty Start Date End Date Son Ramirez MD [address] [facility], [place] [address] PCP - General Family Medicine 04/19/17 PodlogarUmu APRN.HUMAN SERVICES INSTRUCTOR [address] [facility], [place] [address] Steamfitter Supervisor [facility] Medicine 05/04/24 Jenn Maddox APRN.HUMAN SERVICES INSTRUCTOR [address] [facility] [place], [place] [id number] [facility] 11/[facility]24 Team Status: Active Member Role/Relationship [...] December 11, 2024 End: December 11, 2024 Marketing Executive Relationship Specialty Start Date End Date Son Ramirez MD [address] [facility] [place] [address] PCP - General Family Medicine 04/19/17 PodlogarUmu APRN.HUMAN SERVICES INSTRUCTOR [address] [facility], [place] [id number] [facility] Family Medicine 05/04/24 Jenn Maddox APRN.HUMAN SERVICES INSTRUCTOR [address] [facility] [place] [address] [facility] Medicine 11/07/24 Marketing Executive Relationship Specialty Start Date End Date Son Ramirez MD [address] [place], [place] [address] PCP - General Family Medicine 04/19/17 Umu Marquez APRN.HUMAN SERVICES INSTRUCTOR [address] [place], [place] [address] Steamfitter Supervisor Family Medicine 05/04/24 Jenn Maddox APRN.HUMAN SERVICES INSTRUCTOR [address] [place], [place] [id number] [facility] 11/07/24 Team Status: Active Member Role/Relationship Status Dates Dr. Aleksandr Ramirez MD Primary Care Provider Acti ve Team Status: Inactive Member Role/Relationship Status Dates Dr. Aleksandr Ramirez MD Primary Care Provider Acti ve Start: January 14, 2025 End: January 15, 2025 Dr. Brett Mazariegos DO Emergency Provider Active Start: January 14, 2025 End: January 15, 2025 Team Status: Inactive Member Role/Relationship Status Dates Dr. Aleksandr Ramirez MD Primary Care Provider Acti ve Start: January 14, 2025 End: January 15, 2025 Dr. Brett Mazariegos DO Attending Provider Active Start: January 14, 2025 End: January 15, 2025 Dr. Brett Mazariegos DO Emergency Provider Active Start: January 14, 2025 End: January 15, 2025 Team Status: Active Member Role/Relationship Status Dates Dr. Aleksandr Ramirez MD Primary Care Provider Acti ve Start: January 22, 2025 MOON Almazan Attending Provider Active St art: January 22, 2025 MOON Almazan Referring Provider Active St art: January 22, 2025 Team Status: Inactive Member Role/Relationship Status Dates Dr. Aleksandr Ramirez MD Primary Care Provider Acti ve Start: January 31, 2025 End: January 31, 2025 Dr. Aleksandr Ramirez MD Referring Provider Active Start: January 31, 2025 End: January 31, 2025 Tiffany Snyder , ANN MARIE-C Attending Provider Active Start: January 31, 2025 End: January 31, 2025 Team Status: Inactive Member Role/Relationship Status Dates Dr. Aleksandr Ramirez MD Primary Care Provider Acti ve Start: January 22, 2025 End: January 22, 2025 MOON Almazan Attending Provider Active St art: January 22, 2025 End: January 22, 2025 OMON Almazan Referring Provider Active St art: January 22, 2025 End: January 22, 2025 Marketing Executive Relationship Specialty Start Date End Date Son Ramirez MD [address] [place], [place] [id number] PCP - General Family Medicine 04/19/17 Umu Marquez APRN.HUMAN SERVICES INSTRUCTOR [address] [place] [id number] [facility] 05/04/24 Jenn Maddox APRN.HUMAN SERVICES INSTRUCTOR [address] [place], [place] [phone] [facility] 11/07/24 FOR RECORDS PERTAINING TO PATIENTS WHO [...] BE BASED ON THE PRIMARY CLINICAL RECORDS. [facility] [employer] provides no warranty or guarantee of the accuracy or completeness of information in this document.
[2025-05-21 10:59] LABS: AST(SGOT) 22 U/L (<=37); Alanine Aminotransfer ALT/SGPT 28 U/L (<=46); Albumin, Serum 3.9 g/dL (3.4-4.8); Alkaline Phosphatase 111 U/L (40-129); Anion Gap 10 (7-18); BUN 20 mg/dL (4-19); BUN/Creat Ratio 20.1 RATIO (10-20); Calcium,Total 8.7 mg/dL (7.6-11.0); Carbon Dioxide 24.3 mmol/L (20.0-29.0); Chloride 109 mmol/L (96-106); Globulin 2.5 g/dL (2.2-4.2); Glucose 137 mg/dL (70-99); Potassium 4.2 mmol/L (3.5-5.1)
== END | disposition home or self-care (01) ==
LOC: LAB 09:49
PROVIDERS: PCP Family Medicine; Referring Provider Internal Medicine Cardiovascular Disease; Visit Provider Internal Medicine Cardiovascular Disease
DX: I25.10 Atherosclerotic heart disease of native coronary artery without angina pectoris (principal); I10 Essential (primary) hypertension
CPT/HCPCS: 36415; 80053